=== PATIENT | male | born 1960 | race Caucasian/White ===

== ENCOUNTER 2016-07-08 12:54 | Inpatient (IN) | payer OTHER ==
[2016-07-05 10:43] VITALS: BMI 29.7
[2016-07-08] MEDS ORDERED: LIDOCAINE HCL 1%, 10 MG/ML (20ML VIAL) ONE (14:28)
[2016-07-08] MEDS ORDERED: HEPARIN NA (PORCINE) 5,000 UNITS/ML 1ML VIAL ONE (14:28)
[2016-07-08] MEDS ORDERED: PROPOFOL 20 ML ONE ×2 (15:09→16:34)
[2016-07-08] MEDS ORDERED: MIDAZOLAM HCL 2 MG/2 ML SINGLE DOSE VIAL ONE ×2 (15:09→16:42)
--- NOTE | 2016-07-08 15:33 | HP ---
Admitting History and Physical - Admission History of Present Illness: 55 year old male ESRD on HD with recent thrombosis of right arm fistula. Angiogram 2 weeks ago showed occlusion of innominate vein stent which could not be crossed at that time. He has a left IJ Permacath. History Source: Patient, Medical Record - Past Medical History Cardiovascular: Yes: CAD, HTN Renal/: Yes: Renal Failure, Hemodialysis Heme/Onc: Yes: Anemia Endocrine: Yes: Diabetes Mellitus - Past Surgical History Past Surgical History: Yes: AV Fistula/Graft - Smoking History Smoking history: Never smoked Have you smoked in the past 12 months: No Aproximately how many cigarettes per day: 0 - Alcohol/Substance Use Hx Alcohol Use: No Home Medications - Allergies Allergies/Adverse Reactions: Allergies Allergy/AdvReac Type Severity Reaction Status Date / Time No Known Drug Allergies Allergy Verified 07/08/16 13:52 - Home Medications Home Medications: Ambulatory Orders Aspirin 81 mg PO DAILY #0 tab.chew 01/07/13 Calcium Acetate [Phoslo -] 667 mg PO TIDCM 10/10/14 Esomeprazole Mag Trihydrate [Nexium] 40 mg PO DAILY 10/10/14 Metoprolol Tartrate [Lopressor -] 25 mg PO BID 10/10/14 Losartan Potassium [Cozaar -] 50 mg PO DAILY tablet 10/26/14 Amlodipine Besylate [Norvasc -] 10 mg PO DAILY tablet 06/14/16 Atorvastatin Ca [Lipitor] 10 mg PO HS #30 tablet 06/14/16 Oxycodone HCl [Roxicodone -] 5 mg PO Q4H PRN #20 tablet MDD 3 06/14/16 Insulin (Novolog) [Novolog Flexpen -] 30 units SQ BID 07/05/16 Insulin Glargine,Hum.rec.anlog [Lantus (nf)] 30 units SQ HS 07/05/16 Physical Examination Vital Signs: Vital Signs Temperature 97.4 F L 07/08/16 13:57 Pulse Rate 65 07/08/16 13:57 Respiratory Rate 18 07/08/16 13:57 Blood Pressure 154/83 07/08/16 13:57 O2 Sat by Pulse Oximetry (%) 98 07/08/16 13:57 Constitutional: Yes: No Distress Eyes: Yes: Conjunctiva Clear HENT: Yes: Atraumatic Neck: Yes: Supple Cardiovascular: Yes: Regular Rate and Rhythm Respiratory: Yes: Regular Gastrointestinal: Yes: Soft Extremities: Yes: WNL, Other (Right brachial pulse 2+, pulse in distal fistula.) Labs: CBC, BMP 07/08/16 13:13 Problem List - Problems (1) ESRD (end stage renal disease) on dialysis Assessment/Plan: Central vein occlusion. Will attempt to reopen innominate vein stent in preparation for HeRO graft. Post op HD. Code(s): N18.6 - END STAGE RENAL DISEASE Z99.2 - DEPENDENCE ON RENAL DIALYSIS
[2016-07-08] MEDS ORDERED: INSULIN (NOVOLOG) ASPART 100 UNITS/ML 10ML VIAL SQ STA (16:43)
[2016-07-08] MEDS ORDERED: HEPARIN NA (PORCINE) 5,000 UNITS/ML 1ML VIAL IVPUSH ONE (16:49)
--- NOTE | 2016-07-08 17:11 | OP ---
Operative Note - Note: Operative Date: 07/08/16 Pre-Operative Diagnosis: ESRD, right innominate vein occlusion. Operation: Ultrasound guided cannuklation of right internal jugular vein. Balloon venoplasty of right innominate vein. Placement of triple lumen catheter. Surgeon: Reymundo Gonzalez Anesthesiologist/TOBACCO STEMMER: Oliverio Monge Anesthesia: Fractional Operative Report Dictated: Yes
[2016-07-08] MEDS ORDERED: ONDANSETRON 4 MG/2 ML VIAL IVPUSH PRN (17:14)
[2016-07-08] MEDS ORDERED: INSULIN REGULAR HUMAN 100 UNITS/ML *VIAL IVPUSH ONE (17:15)
--- NOTE | 2016-07-08 20:09 | OP ---
DATE OF OPERATION: 07/08/2016 SURGEON: Reymundo West M.D. PROCEDURE: Ultrasound guided cannulation of right internal jugular vein. Balloon venoplasty of right innominate vein. Placement of triple lumen catheter. 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 ANESTHESIA: Fractional anesthesia. ANESTHESIOLOGIST: Oliverio Monge M.D. OPERATIVE FINDINGS: Right internal jugular vein was patent. A stent in the right innominate vein was chronically occluded and there was retrograde flow into the subclavian vein. OPERATIVE PROCEDURE: Following routine patient identification, with side and site verification, intravenous sedation was established. The right neck, chest, and right groin were prepped with Chloraprep and sterilely draped; surgical timeout was performed. Using real time duplex ultrasound, the right internal jugular vein was identified and was deemed to be patent. 1% Xylocaine was infiltrated in the skin over the vein. The vein was cannulated with a micropuncture needle. A Fiberwire was passed proximally towards the occluded stent. The needle was exchanged for a 5 Ukrainian catheter. An angle-tipped wire was then advanced through the catheter and manipulated into the subclavian vein. A catheter was exchanged over the wire, and the wire was exchanged for an Amplatz wire. A short 6 Ukrainian sheath was then placed over the wire to the jugular vein. Using a catheter and glidewire, the occluded stent was cannulated and the wire and catheter advanced proximally toward the heart, until the wire re-entered the right atrium. The catheter was advanced over the wire, contrast was injected ton confirm entry into the atrium. A glidewire was then advanced distally through the atrium into the inferior vena cava. The catheter advanced down over the wire, the wire exchanged for the stiff wire. An 8-mm angioplasty balloon was then used to dilate the stent and restore patency on repeat venogram. A triple lumen catheter was then advanced over the wire and positioned in the right atrium. The wire was removed. Each lumen was aspirated for blood and flushed with saline and heparin solution. It was then secured to the skin with a silk suture and sterilely bandaged. The patient was taken to recovery room in stable condition. REYMUNDO WEST M.D. [id number]
[2016-07-08] MEDS: oxyCODONE HCL 5 MG TABLET PO PRN (22:15)
[2016-07-08] MEDS: INSULIN (NOVOLOG) ASPART 100 UNITS/ML 10ML VIAL SQ SCH (22:15)
[2016-07-08] MEDS: METOPROLOL TARTRATE 25 MG TABLET (FP) PO SCH (22:15)
[2016-07-08] MEDS: INSULIN DETEMIR 100 UNITS/ML MDV SQ SCH (22:15)
[2016-07-08] MEDS: ATORVASTATIN CA 10 MG TABLET (FP) PO SCH (22:17)
[2016-07-09] MEDS ORDERED: ZOLPIDEM TARTRATE 5 MG TABLET PO PRN (08:24)
--- NOTE | 2016-07-09 08:24 | PN ---
Progress Note (short form) - Note Progress Note: POD 1 C/o pain in neck Afeb Generalized edema. Dialysis today Plan placement of HeRO graft tomorrow. Problem List - Problems (1) ESRD (end stage renal disease) on dialysis Code(s): N18.6 - END STAGE RENAL DISEASE Z99.2 - DEPENDENCE ON RENAL DIALYSIS
--- NOTE | 2016-07-09 08:54 | PN ---
Progress Note (short form) - Note Progress Note: RENAL 55 WITH ESRD HTN DM CENTRAL VEIN THROMBOSIS POD1 AWAITS HERO GRAFT IN AM FACIAL SWELLING FROM CENTRAL OCCLUSION IN PAIN OXYCODONE NOT WORKING WILL ORDER MORPHINE 4 MG Q 8 PRN HD TODAY HIPS 20 4 HR K2 CA2.5 [facility] 4 KG HOLD BP MEDS PRE HD CASE D/W NURSE AND DR WEST BG LOW 75 SHOULD EAT LOWER INSULIN TONIGHT HE MAY BE NPO PRE OP CALL FOR QUESTIONS [phone] DR ROBERTSON
[2016-07-09] MEDS: morphine CARPU-JECT 4 MG/1 ML DISP.SYRIN SQ PRN ×2 (09:10→16:43)
[2016-07-09] MEDS: LOSARTAN POTASSIUM 50 MG TABLET (FP) PO SCH (09:49)
[2016-07-09] MEDS: METOPROLOL TARTRATE 25 MG TABLET (FP) PO SCH ×2 (09:50→21:25)
[2016-07-09] MEDS: PANTOPRAZOLE 40 MG TABLET (FP) PO SCH (09:51)
[2016-07-09] MEDS: amLODIPine BESYLATE 10 MG TABLET (FP) PO SCH (09:51)
[2016-07-09] MEDS: ASPIRIN 81 MG CHEWABLE TABLETS PO SCH (09:51)
[2016-07-09] MEDS: CALCIUM ACETATE 667 MG CAPSULE (FP) PO SCH ×4 (09:53→17:03)
[2016-07-09] MEDS: INSULIN (NOVOLOG) ASPART 100 UNITS/ML 10ML VIAL SQ SCH ×2 (09:54→21:29)
--- NOTE | 2016-07-09 12:11 | CONSULT ---
Consult Consult Specialty:: INTERNAL MEDICINE Referred by:: DR WEST Reason for Consultation:: medical management - History of Present Illness Chief Complaint: dialysis access and stenosed rt innominate vein History of Present Illness: 55 yrs old male known to me from previous admission for malfunction AVG- here electively for dialysis access and surgery for occluded rt innominate vein He underwent cannulation of rt int jugular vein and venoplasty pf innominate vein and left chest wall permacath He will be going for Hero graft procedure tomorrow Pt examined in dialysis today No distress No pain - History Source History Provided By: Patient Limitations to Obtaining History: No Limitations - Past Medical History Cardio/Vascular: Yes: CAD, HTN Renal/: Yes: Renal Failure, Hemodialysis Endocrine: Yes: Diabetes Mellitus - Past Surgical History Past Surgical History: Yes: AV Fistula/Graft - Alcohol/Substance Use Hx Alcohol Use: No - Smoking History Smoking history: Never smoked Have you smoked in the past 12 months: No Aproximately how many cigarettes per day: 0 - Social History Usual Living Arrangement: With Spouse Home Medications - Allergies Allergies/Adverse Reactions: Allergies Allergy/AdvReac Type Severity Reaction Status Date / Time No Known Drug Allergies Allergy Verified 07/08/16 13:52 - Home Medications Home Medications: Ambulatory Orders Aspirin 81 mg PO DAILY #0 tab.chew 01/07/13 Calcium Acetate [Phoslo -] 667 mg PO TIDCM 10/10/14 Esomeprazole Mag Trihydrate [Nexium] 40 mg PO DAILY 10/10/14 Metoprolol Tartrate [Lopressor -] 25 mg PO BID 10/10/14 Losartan Potassium [Cozaar -] 50 mg PO DAILY tablet 10/26/14 Amlodipine Besylate [Norvasc -] 10 mg PO DAILY tablet 06/14/16 Atorvastatin Ca [Lipitor] 10 mg PO HS #30 tablet 06/14/16 Oxycodone HCl [Roxicodone -] 5 mg PO Q4H PRN #20 tablet MDD 3 06/14/16 Insulin (Novolog) [Novolog Flexpen -] 30 units SQ BID 07/05/16 Insulin Glargine,Hum.rec.anlog [Lantus (nf)] 30 units SQ HS 07/05/16 Review of Systems - Review of Systems Constitutional: denies: Chills, Fever Cardiovascular: denies: Chest Pain, Palpitations, Shortness of Breath Respiratory: denies: Cough Physical Exam Vital Signs: Vital Signs Temperature 97.0 F L 07/09/16 10:00 Pulse Rate 65 07/09/16 10:00 Respiratory Rate 20 07/09/16 10:00 Blood Pressure 165/71 07/09/16 10:00 O2 Sat by Pulse Oximetry (%) 98 07/08/16 22:00 Constitutional: Yes: No Distress, Calm, Other (right cheek- canula in place) Cardiovascular: Yes: Regular Rate and Rhythm Respiratory: Yes: CTA Bilaterally, Other (left chest wall permacath) Gastrointestinal: Yes: Normal Bowel Sounds, Soft, Abdomen, Obese. No: Distention, Tenderness Edema: No Neurological: Yes: Alert, Oriented Psychiatric: Yes: Alert, Oriented Labs: CBC, BMP 07/08/16 13:13 Imaging - Results Chest X-ray: Image Reviewed Problem List - Problems (1) Diabetes Assessment/Plan: Novolog per sliding scale monitor BGM On Levemir may need to hold Levemir if NPO Code(s): E11.9 - TYPE 2 DIABETES MELLITUS WITHOUT COMPLICATIONS Qualifiers: Diabetes mellitus type: type 1 Diabetes mellitus complication detail: with chronic kidney disease Chronic kidney disease stage: on chronic dialysis (2) ESRD (end stage renal disease) on dialysis Assessment/Plan: HD per renal No distress not in volume overload Code(s): N18.6 - END STAGE RENAL DISEASE Z99.2 - DEPENDENCE ON RENAL DIALYSIS (3) HTN (hypertension) Assessment/Plan: on medications Code(s): I10 - ESSENTIAL (PRIMARY) HYPERTENSION Qualifiers: Hypertension type: essential hypertension Qualified Code(s): I10 - Essential (primary) hypertension (4) Shunt malfunction Assessment/Plan: will be going for Hero graft placement tomorrow He is getting dialysis through left chest wall permacath for now Code(s): T85.698A - [facility] COMPL OF INTERNAL PROSTH DEV/GRFT, INIT Qualifiers: Encounter type: subsequent encounter Qualified Code(s): T85.698D - Other mechanical complication of other specified internal prosthetic devices, implants and grafts, subsequent encounter (5) Stenosis of right innominate vein Assessment/Plan: s/p cannulation and balloon venoplasty DVT prophylaxis-- Lovenox Code(s): I87.1 - COMPRESSION OF VEIN
[2016-07-09 12:37] LABS: BASOPHIL 0.5 % (0-2.0); EOSINOPHIL 2.5 % (0-4.5); MCH 30.5 pg (25.7-33.7); MCHC 32.6 g/dl (32.0-35.9); MEAN CELL VOLUME 93.5 fl (80-96); MEAN PLT VOLUME 8.4 fl (7.5-11.1); NEUTROPHILS 63.6 % (42.8-82.8); PLATELET COUNT 195 K/MM3 (134-434); RDW 15.6 % (11.9-15.9); WHITE BLOOD COUNT 5.7 K/mm3 (4.0-10.0)
[2016-07-09 12:54] LABS: ALBUMIN 3.5 g/dl (3.4-5.0); BILIRUBIN,TOTAL 0.4 mg/dL (0.2-1.0); CALCIUM 8.1 mg/dL (8.5-10.1); TOT PROT 7.3 g/dl (6.4-8.2)
[2016-07-09 13:05] LABS: CREATININE 10.2 mg/dL (0.7-1.3)
[2016-07-09 13:33] LABS: INR 1.04 (0.82-1.09); PROTHROMBIN TIME (PATIENT) 11.5 SEC (9.98-11.88)
[2016-07-09] MEDS: ENOXAPARIN NA (PORCINE) 40 MG/0.4 ML DISP.SYRIN SQ SCH (16:44)
[2016-07-09] MEDS: ATORVASTATIN CA 10 MG TABLET (FP) PO SCH (21:25)
[2016-07-09] MEDS: INSULIN DETEMIR 100 UNITS/ML MDV SQ SCH (21:27)
[2016-07-09] MEDS ORDERED: INSULIN (NOVOLOG) ASPART 100 UNITS/ML 10ML VIAL SQ ONE (21:30)
[2016-07-09] MEDS ORDERED: INSULIN DETEMIR 100 UNITS/ML MDV SQ ONE (21:30)
[2016-07-09] MEDS: oxyCODONE HCL 5 MG TABLET PO PRN (21:32)
[2016-07-10] MEDS: morphine CARPU-JECT 4 MG/1 ML DISP.SYRIN SQ PRN (00:04)
[2016-07-10 07:51] LABS: BASOPHIL 0.7 % (0-2.0); EOSINOPHIL 2.8 % (0-4.5); MCH 30.5 pg (25.7-33.7); MCHC 32.8 g/dl (32.0-35.9); MEAN PLT VOLUME 8.2 fl (7.5-11.1); NEUTROPHILS 54.9 % (42.8-82.8); PLATELET COUNT 189 K/MM3 (134-434); RDW 15.6 % (11.9-15.9)
[2016-07-10 08:45] LABS: ALBUMIN 3.4 g/dl (3.4-5.0); BILIRUBIN,TOTAL 0.6 mg/dL (0.2-1.0); CALCIUM 7.5 mg/dL (8.5-10.1); TOT PROT 7.3 g/dl (6.4-8.2)
[2016-07-10 09:00] LABS: CREATININE 8.2 mg/dL (0.7-1.3)
[2016-07-10] MEDS: ENOXAPARIN NA (PORCINE) 40 MG/0.4 ML DISP.SYRIN SQ SCH (09:08)
[2016-07-10] MEDS: ASPIRIN 81 MG CHEWABLE TABLETS PO SCH (09:08)
[2016-07-10] MEDS: LOSARTAN POTASSIUM 50 MG TABLET (FP) PO SCH (09:10)
[2016-07-10] MEDS: PANTOPRAZOLE 40 MG TABLET (FP) PO SCH (09:10)
[2016-07-10] MEDS: INSULIN (NOVOLOG) ASPART 100 UNITS/ML 10ML VIAL SQ SCH ×2 (09:10→22:31)
[2016-07-10] MEDS: METOPROLOL TARTRATE 25 MG TABLET (FP) PO SCH ×2 (09:10→22:30)
[2016-07-10] MEDS: amLODIPine BESYLATE 10 MG TABLET (FP) PO SCH (09:10)
[2016-07-10] MEDS: CALCIUM ACETATE 667 MG CAPSULE (FP) PO SCH ×2 (09:10→11:48)
[2016-07-10] MEDS: oxyCODONE HCL 5 MG TABLET PO PRN (09:14)
[2016-07-10] MEDS ORDERED: morphine CARPU-JECT 2 MG/1 ML DISP.SYRIN IVPUSH PRN (11:20)
--- NOTE | 2016-07-10 11:24 | PN ---
Progress Note, Physician Chief Complaint: c/o pain in right side of neck No SOB , chest pain wants Morphine - Current Medication List Current Medications: Active Medications Amlodipine Besylate (Norvasc -) 10 mg PO DAILY [facility] Last Admin: 07/10/16 09:10 Dose: 10 mg Aspirin (Asa -) 81 mg PO DAILY [facility] Last Admin: 07/10/16 09:08 Dose: Not Given Atorvastatin Calcium (Lipitor -) 10 mg PO HS [facility] Last Admin: 07/09/16 21:25 Dose: 10 mg Calcium Acetate (Phoslo -) 667 mg PO TIDCM [facility] Last Admin: 07/10/16 09:10 Dose: 667 mg Enoxaparin Sodium (Lovenox -) 40 mg SQ DAILY [facility] Last Admin: 07/10/16 09:08 Dose: Not Given Insulin Aspart (Novolog Vial) 30 units SQ BID [facility] Last Admin: 07/10/16 09:10 Dose: 2 units Insulin Detemir (Levemir Vial) 30 units SQ HS [facility] Last Admin: 07/09/16 21:27 Dose: Not Given Losartan Potassium (Cozaar -) 50 mg PO DAILY [facility] Last Admin: 07/10/16 09:10 Dose: 50 mg Metoprolol Tartrate (Lopressor -) 25 mg PO BID [facility] Last Admin: 07/10/16 09:10 Dose: 25 mg Morphine Sulfate (Morphine Injection -) 1 mg IVPUSH Q4H PRN PRN Reason: PAIN Oxycodone HCl (Roxicodone -) 5 mg PO Q4H PRN PRN Reason: PAIN LEVEL 1-5 Last Admin: 07/10/16 09:14 Dose: 5 mg Pantoprazole Sodium (Protonix -) 40 mg PO DAILY [facility] Last Admin: 07/10/16 09:10 Dose: 40 mg Zolpidem Tartrate (Ambien -) 10 mg PO HS PRN PRN Reason: INSOMNIA Last Admin: 07/09/16 21:33 Dose: 10 mg - Objective Vital Signs: Vital Signs Temperature 97.5 F L 07/10/16 09:19 Pulse Rate 67 07/10/16 09:19 Respiratory Rate 18 07/10/16 09:19 Blood Pressure 155/80 07/10/16 09:19 O2 Sat by Pulse Oximetry (%) 98 07/08/16 22:00 Constitutional: Yes: Mild Distress HENT: Yes: Other (canula rt neck) Cardiovascular: Yes: Regular Rate and Rhythm Respiratory: Yes: Diminished Gastrointestinal: Yes: Normal Bowel Sounds, Soft, Abdomen, Obese. No: Distention, Tenderness Edema: No Labs: CBC, BMP 07/10/16 06:45 07/10/16 06:45 INR, PTT INR 1.04 (0.82-1.09) 07/09/16 12:00 Problem List - Problems (1) Diabetes Assessment/Plan: Novolog per sliding scale monitor BGM On Levemir NPO after breakfast Code(s): E11.9 - TYPE 2 DIABETES MELLITUS WITHOUT COMPLICATIONS Qualifiers: Diabetes mellitus type: type 1 Diabetes mellitus complication detail: with chronic kidney disease Chronic kidney disease stage: on chronic dialysis (2) ESRD (end stage renal disease) on dialysis Assessment/Plan: HD per renal No distress not in volume overload Code(s): N18.6 - END STAGE RENAL DISEASE Z99.2 - DEPENDENCE ON RENAL DIALYSIS (3) HTN (hypertension) Assessment/Plan: on medications Code(s): I10 - ESSENTIAL (PRIMARY) HYPERTENSION Qualifiers: Hypertension type: essential hypertension Qualified Code(s): I10 - Essential (primary) hypertension (4) Shunt malfunction Assessment/Plan: will be going for Hero graft placement today He is getting dialysis through left chest wall permacath for now Code(s): T85.698A - [facility] COMPL OF INTERNAL PROSTH DEV/GRFT, INIT Qualifiers: Encounter type: subsequent encounter Qualified Code(s): T85.698D - Other mechanical complication of other specified internal prosthetic devices, implants and grafts, subsequent encounter (5) Stenosis of right innominate vein Assessment/Plan: s/p cannulation and balloon venoplasty pain control DVT prophylaxis-- Lovenox Code(s): I87.1 - COMPRESSION OF VEIN
[2016-07-10] MEDS ORDERED: Insulin (LOG) Aspart 100 UNITS/ML VIAL SQ ONE (11:57)
[2016-07-10] MEDS ORDERED: LIDOCAINE HCL 1%, 10 MG/ML (20ML VIAL) ONE (13:12)
[2016-07-10] MEDS ORDERED: HEPARIN NA (PORCINE) 5,000 UNITS/ML 1ML VIAL ONE (13:12)
[2016-07-10] MEDS ORDERED: MIDAZOLAM HCL 2 MG/2 ML SINGLE DOSE VIAL ONE (14:17)
[2016-07-10] MEDS ORDERED: HEPARIN NA (PORCINE) 5,000 UNITS/ML 1ML VIAL SQ ONE (14:21)
[2016-07-10] MEDS ORDERED: PROPOFOL 20 ML ONE (14:22)
[2016-07-10] MEDS ORDERED: ROCURONIUM BROMIDE 50 MG/5 ML VIAL ONE (14:22)
[2016-07-10] MEDS ORDERED: ceFAZolin SODIUM 1 GM VIAL IVPB ONE (14:31)
[2016-07-10] MEDS ORDERED: ceFAZolin SODIUM 1 GM VIAL ONE (14:39)
[2016-07-10] MEDS ORDERED: MINERAL OIL 25 ML OIL ONE (15:13)
[2016-07-10] MEDS ORDERED: MINERAL OIL 25 ML OIL TP ONE (15:22)
[2016-07-10] MEDS ORDERED: BACITRACIN 50,000 UNITS VIAL TP ONE (15:53)
[2016-07-10] MEDS ORDERED: GLYCOPYRROLATE 0.2 MG/1 ML VIAL ONE (16:47)
[2016-07-10] MEDS ORDERED: NEOSTIGMINE METHYLSULFATE 0.5 MG/ML - 10 ML MDV ONE (16:48)
[2016-07-10] MEDS ORDERED: PROMETHAZINE HCL 25 MG/1 ML VIAL IVPUSH PRN ×2 (17:13→17:41)
[2016-07-10] MEDS ORDERED: ONDANSETRON 4 MG/2 ML VIAL IVPUSH PRN ×2 (17:13→17:41)
[2016-07-10] MEDS ORDERED: oxyCODONE HCL 5 MG TABLET PO PRN ×2 (17:13→17:41)
--- NOTE | 2016-07-10 17:14 | OP ---
Operative Note - Note: Operative Date: 07/10/16 Pre-Operative Diagnosis: ESRD, Central vein occlusion. Operation: Placement of HeRO graft. Venoplasty of innominate vein Findings: Occluded innominate vein stent Implants: HeRO graft and catheter Post-Operative Diagnosis: Same as Pre-op Surgeon: Reymundo Gonzalez Field Service Technician: Carol Conklin Anesthesiologist/DRAFTER CASTINGS: Callum Celestin Anesthesia: General Estimated Blood Loss (mls): 50
[2016-07-10] MEDS ORDERED: CLOPIDOGREL BISULFATE 75 MG TABLET (FP) PO SCH (17:15)
[2016-07-10] MEDS ORDERED: HYDROmorphone HCL CARPU-JECT 1 MG/1 ML DISP.SYRIN IVPB PRN (17:15)
--- NOTE | 2016-07-10 17:47 | SURG ---
Surgery Hasher Machine Operator Note Hasher Machine Operator: Carol Conklin PA-C Date of Service: 07/10/16 Diagnosis: ESRD, Central vein occlusion. Procedure: Placement of HeRO graft. Venoplasty of innominate vein I was present for the entirety of the operative procedure. For further detail, please refer to operative report. Visit type - Case Type Case Type: Scheduled Admission
[2016-07-10] MEDS: HYDROmorphone HCL CARPU-JECT 1 MG/1 ML DISP.SYRIN IVPB PRN (21:30)
[2016-07-10] MEDS: INSULIN DETEMIR 100 UNITS/ML MDV SQ SCH (22:29)
[2016-07-10] MEDS: ATORVASTATIN CA 10 MG TABLET (FP) PO SCH (22:30)
[2016-07-10] MEDS: ZOLPIDEM TARTRATE 5 MG TABLET PO PRN (22:31)
[2016-07-11] MEDS: HYDROmorphone HCL CARPU-JECT 1 MG/1 ML DISP.SYRIN IVPB PRN ×5 (01:48→21:14)
--- NOTE | 2016-07-11 02:04 | OP ---
DATE OF OPERATION: 07/10/2016 SURGEON: Reymundo Gonzalez MD LOGISTICS MANAGEMENT SPECIALIST: STEPHANE Conklin PROCEDURE: Placement of Hero graft and catheter right arm and subclavian vein, venoplasty of innominate vein, ultrasound-guided cannulation of right subclavian vein. PREOPERATIVE DIAGNOSIS: End-stage renal disease with occlusion of central veins. POSTOPERATIVE DIAGNOSIS: End-stage renal disease with occlusion of central veins. ANESTHESIA: General. ANESTHESIOLOGIST: Callum Celestin MD OPERATIVE FINDINGS: There was occlusion of a stent in the right innominate vein, which was chronic. Subclavian vein was patent. The brachial artery above the elbow was patent. OPERATIVE PROCEDURE: Following routine patient identification with side and site verification, general anesthesia was induced. The right neck, chest, and arm were prepped with ChloraPrep. Using real time duplex imaging, the right subclavian vein was identified. It was found to be patent. Under duplex guidance, a micropuncture needle was advanced into the lateral aspect of the vein and then a fine wire was passed proximally under fluoroscopic guidance. The needle was exchanged for a 5-Slovenian catheter. The wire was exchanged for a glidewire, which was advanced into the proximal subclavian vein. An 8-Slovenian sheath was then exchanged over the wire into the vein. Using a Berenstein catheter and the glidewire, the distal end of the stent was engaged and the wire passed proximally into the right atrium. The catheter was then advanced over the wire into the right atrium. The wire was then exchanged for an Amplatz wire, which was advanced through the atrium, into the inferior vena cava. The tract around the wire was then successfully dilated with 8-mm and 10-mm balloons. The Hero catheter was prepped and passed over the wire with the aid of a 6-mm balloon at the tip. It was advanced through the stent and into the right atrium. The balloon and wire were removed. Blood was easily aspirated through the catheter, which was filled with heparin solution and occluded with a plastic clamp. A counter incision was then made in the deltopectoral groove over the shoulder. Cautery was used for hemostasis. A Drea clamp was then passed to the chest incision and the catheter was passed through this tunnel with care not to twist it. Again, it was aspirated for blood and flushed with saline solution. An incision was then made in the medial aspect of the distal upper arm at the site of previous arteriovenous anastomosis. Subcutaneous tissues were divided with cautery. The old AV fistula was identified and was carefully mobilized from the surrounding tissues. It was clamped proximally and distally and transected. The distal end was ligated with 2-0 silk suture ligature and tie. The proximal end was dissected down to the brachial artery, which was encircled proximally and distally with [place]. A curved metal tunneler was then passed from this incision to the proximal shoulder incision and a 6-mm Hero graft was passed through the tunnel with care not to twist it. The Hero catheter was trimmed and attached to the Hero adapter with a snug, tight fit. The graft was then pulled taught in its bed and the adapter was secured in its incision with interrupted sutures of 3-0 Vicryl on the surrounding tissues. The brachial artery was then occluded proximally and distally with bulldog clamps and the old vein graft anastomosis was excised. The resulting arteriotomy was used for the anastomosis. Inflow and outflow were checked and the artery was filled with heparin solution. The graft was occluded with a vascular clamp and trimmed for length. It was anastomosed to the side of the artery with running suture of 6-0 Prolene. Prior to completion of the suture line, the artery was allowed to back bleed and flush and the graft was flushed with saline. The suture line was completed and all vessels were released. There was good flow through the anastomosis with a palpable pulse in the graft. Bleeding from the suture line was controlled with Surgicel. When hemostasis was achieved, the wound was irrigated and closed with interrupted sutures of 3-0 Vicryl and skin eliazar on all incisions. Sterile dressings were applied. The patient was taken to the recovery room in stable condition. Shira [id number] cc: Ginny Lloyd MD
--- NOTE | 2016-07-11 08:30 | PN ---
Progress Note (short form) - Note Progress Note: Post op day#1.S/P Right subclavian hero graft placement under GA uneventful.Patient stable.No any anesthesia related problem.Patient DC from the anesthesia care.
[2016-07-11] MEDS: CALCIUM ACETATE 667 MG CAPSULE (FP) PO SCH ×3 (08:55→17:38)
[2016-07-11] MEDS: METOPROLOL TARTRATE 25 MG TABLET (FP) PO SCH ×2 (09:09→21:17)
[2016-07-11] MEDS: amLODIPine BESYLATE 10 MG TABLET (FP) PO SCH (09:09)
[2016-07-11] MEDS: ASPIRIN 81 MG CHEWABLE TABLETS PO SCH (09:09)
[2016-07-11] MEDS: LOSARTAN POTASSIUM 50 MG TABLET (FP) PO SCH (09:09)
[2016-07-11] MEDS: PANTOPRAZOLE 40 MG TABLET (FP) PO SCH (09:10)
[2016-07-11] MEDS: ENOXAPARIN NA (PORCINE) 40 MG/0.4 ML DISP.SYRIN SQ SCH (09:10)
[2016-07-11] MEDS: INSULIN (NOVOLOG) ASPART 100 UNITS/ML 10ML VIAL SQ SCH ×3 (09:10→17:37)
[2016-07-11] MEDS: CLOPIDOGREL BISULFATE 75 MG TABLET (FP) PO SCH (09:10)
--- NOTE | 2016-07-11 09:25 | PN ---
Progress Note (short form) - Note Progress Note: RENAL 55 WITH ESRD HTN DM CENTRAL VEIN THROMBOSIS POD1 POST HERO GRAFT PLACEMENT POS BRUIT DRESSING CHANGED OVERNIGHT WAS LAST DIALYZED TUES 4 KG REMOVED HD TODAY HIPS 20 3.5 HR K2 CA2.5 [facility] 3 KG EPO 20K LOWER HUMALOG TO 10 BID IN HOSPITAL CALL FOR QUESTIONS [phone] DR ROBERTSON
--- NOTE | 2016-07-11 10:14 | PN ---
Progress Note, Physician Chief Complaint: comfortable s/p Hero graft right arm - Current Medication List Current Medications: Active Medications Amlodipine Besylate (Norvasc -) 10 mg PO DAILY [facility] Last Admin: 07/11/16 09:09 Dose: 10 mg Aspirin (Asa -) 81 mg PO DAILY [facility] Last Admin: 07/11/16 09:09 Dose: 81 mg Atorvastatin Calcium (Lipitor -) 10 mg PO HS [facility] Last Admin: 07/10/16 22:30 Dose: 10 mg Calcium Acetate (Phoslo -) 667 mg PO TIDCM [facility] Last Admin: 07/11/16 08:55 Dose: 667 mg Clopidogrel Bisulfate (Plavix -) 75 mg PO DAILY [facility] Last Admin: 07/11/16 09:10 Dose: 75 mg Enoxaparin Sodium (Lovenox -) 40 mg SQ DAILY [facility] Last Admin: 07/11/16 09:10 Dose: 40 mg Epoetin Jared (Procrit -) 10,000 unit SQ ONCE ONE Stop: 07/11/16 12:01 Hydromorphone HCl (Dilaudid Injection -) 1 mg IVPB Q3H PRN PRN Reason: PAIN LEVEL 1-5 Last Admin: 07/11/16 06:26 Dose: 1 mg Insulin Aspart (Novolog Vial) 10 units SQ BIDAC [facility] Last Admin: 07/11/16 09:31 Dose: Not Given Insulin Detemir (Levemir Vial) 30 units SQ HS [facility] Last Admin: 07/10/16 22:29 Dose: 30 unit Losartan Potassium (Cozaar -) 50 mg PO DAILY [facility] Last Admin: 07/11/16 09:09 Dose: 50 mg Metoprolol Tartrate (Lopressor -) 25 mg PO BID [facility] Last Admin: 07/11/16 09:09 Dose: 25 mg Oxycodone HCl (Roxicodone -) 5 mg PO Q4H PRN PRN Reason: PAIN LEVEL 1-5 Last Admin: 07/11/16 09:58 Dose: 5 mg Pantoprazole Sodium (Protonix -) 40 mg PO DAILY [facility] Last Admin: 07/11/16 09:10 Dose: 40 mg Zolpidem Tartrate (Ambien -) 10 mg PO HS PRN PRN Reason: INSOMNIA Last Admin: 07/10/16 22:31 Dose: 10 mg - Objective Vital Signs: Vital Signs Temperature 97.0 F L 01/12/17 05:16 Pulse Rate 65 07/11/16 05:16 Respiratory Rate 16 07/11/16 05:16 Blood Pressure 102/79 07/11/16 05:16 O2 Sat by Pulse Oximetry (%) 96 07/10/16 21:00 Constitutional: Yes: No Distress Cardiovascular: Yes: Regular Rate and Rhythm Respiratory: Yes: Diminished Gastrointestinal: Yes: Normal Bowel Sounds, Soft. No: Distention, Tenderness Musculoskeletal: Yes: Other (right arm dressing in place) Edema: No Neurological: Yes: Alert Labs: CBC, BMP 07/10/16 06:45 07/10/16 06:45 INR, PTT INR 1.04 (0.82-1.09) 07/09/16 12:00 Problem List - Problems (1) Diabetes Assessment/Plan: Novolog per sliding scale monitor BGM On Levemir Code(s): E11.9 - TYPE 2 DIABETES MELLITUS WITHOUT COMPLICATIONS Qualifiers: Diabetes mellitus type: type 1 Diabetes mellitus complication detail: with chronic kidney disease Chronic kidney disease stage: on chronic dialysis (2) ESRD (end stage renal disease) on dialysis Assessment/Plan: HD per renal No distress not in volume overload Code(s): N18.6 - END STAGE RENAL DISEASE Z99.2 - DEPENDENCE ON RENAL DIALYSIS (3) HTN (hypertension) Assessment/Plan: on medications Code(s): I10 - ESSENTIAL (PRIMARY) HYPERTENSION Qualifiers: Hypertension type: essential hypertension Qualified Code(s): I10 - Essential (primary) hypertension (4) Shunt malfunction Assessment/Plan: s/p Hero graft placement increase Oxycodone 10mg will dc IV Dilaudid tomorrow Code(s): T85.698A - [facility] COMPL OF INTERNAL PROSTH DEV/GRFT, INIT Qualifiers: Encounter type: subsequent encounter Qualified Code(s): T85.698D - Other mechanical complication of other specified internal prosthetic devices, implants and grafts, subsequent encounter (5) Stenosis of right innominate vein Assessment/Plan: s/p cannulation and balloon venoplasty pain control DVT prophylaxis-- Lovenox Code(s): I87.1 - COMPRESSION OF VEIN
--- NOTE | 2016-07-11 11:14 | DS ---
Addendum entered and electronically signed by Franki Butts PA 07/13/16 09:36: Stayed for pain management via IV control. Patient can be dc'd today after HD. Date of discharge 07/13/16 Addendum entered and electronically signed by Franki Butts PA 07/12/16 09:22: Stayed because underwent HD late last night. Date of discharge 07/12/16 Original Note: Physical Exam: SUBJECTIVE: Patient seen and examined. Patient is having some pain in his right arm, no other complaints. OBJECTIVE: Vital Signs Temperature 97.0 F L 07/11/16 05:16 Pulse Rate 65 07/11/16 05:16 Respiratory Rate 16 07/11/16 05:16 Blood Pressure 102/79 07/11/16 05:16 O2 Sat by Pulse Oximetry (%) 96 07/10/16 21:00 PHYSICAL EXAM GENERAL: The patient is awake, alert, in no acute distress. HEAD: Normal with no signs of trauma. EYES: PERRL, sclera anicteric, conjunctiva clear. ENT: Ears normal, nares patent, moist mucous membranes. NECK: Trachea midline, full range of motion, supple. Dressing clean and dry in place s/p catheter removal. LUNGS: Breath sounds equal, clear to auscultation bilaterally, no accessory muscle use. HEART: Regular rate and rhythm. ABDOMEN: Soft, nontender, normoactive bowel sounds. EXTREMITIES: warm, well-perfused. RUE with dressings clean, dry intact, changed overnight by nursing. Bruit auscultated. NEUROLOGICAL: Normal speech, gait not observed. PSYCH: Normal mood, normal affect. SKIN: Warm, dry, normal turgor, no rashes or lesions noted. LABS CBC,CMP WBC 5.0 K/mm3 (4.0-10.0) 07/10/16 06:45 RBC 3.40 M/mm3 (4.00-5.60) L 07/10/16 06:45 Hgb 10.4 GM/dL (11.7-16.9) L 07/10/16 06:45 Hct 31.7 % (35.4-49) L 07/10/16 06:45 MCV 93.0 fl (80-96) 07/10/16 06:45 MCHC 32.8 g/dl (32.0-35.9) 07/10/16 06:45 RDW 15.6 % (11.9-15.9) 07/10/16 06:45 Plt Count 189 K/MM3 (134-434) 07/10/16 06:45 MPV 8.2 fl (7.5-11.1) 07/10/16 06:45 Neutrophils % 54.9 % (42.8-82.8) 07/10/16 06:45 Lymphocytes % 28.3 % (8-40) 07/10/16 06:45 Monocytes % 13.3 % (3.8-10.2) H 07/10/16 06:45 Eosinophils % 2.8 % (0-4.5) 07/10/16 06:45 Basophils % 0.7 % (0-2.0) 07/10/16 06:45 Sodium 136 mmol/L (136-145) 07/10/16 06:45 Potassium 4.9 mmol/L (3.5-5.1) 07/10/16 06:45 Chloride 100 mmol/L (98-107) 07/10/16 06:45 Carbon Dioxide 24 mmol/L (21-32) 07/10/16 06:45 Anion Gap 12 (8-16) 07/10/16 06:45 BUN 53 mg/dL (7-18) H D 07/10/16 06:45 Creatinine 8.2 mg/dL (0.7-1.3) H* 07/10/16 06:45 Creat Clearance w eGFR 6.82 (>60) 07/10/16 06:45 POC Glucometer 210 UNITS (()) 07/11/16 06:07 Random Glucose 260 mg/dL (74-106) H D 07/10/16 06:45 Calcium 7.5 mg/dL (8.5-10.1) L 07/10/16 06:45 Total Bilirubin 0.6 mg/dL (0.2-1.0) D 07/10/16 06:45 AST 16 U/L (15-37) 07/10/16 06:45 ALT 33 U/L (12-78) 07/10/16 06:45 Alkaline Phosphatase 170 U/L (45-117) H 07/10/16 06:45 Total Protein 7.3 g/dl (6.4-8.2) 07/10/16 06:45 Albumin 3.4 g/dl (3.4-5.0) 07/10/16 06:45 HOSPITAL COURSE: Date of Admission:07/08/16 Date of Discharge: 07/11/16 The patient is a 55 year old male with ESRD on HD with recent thrombosis of right arm fistula. Angiogram 2 weeks ago showed occlusion of the innominate vein stent, which could not be crossed at that time. He has a left IJ Permacath in place. The patient was admitted to the Med-Surg Unit following ultrasound guided cannulation of the right internal jugular vein, balloon venoplasty of right innominate vein, and placement of triple lumen catheter on 07/08/16. The patient had HD on 07/09 and was then taken back to the OR on 07/10/16 for placement of HeRO graft and venoplasty of innominate vein. The patient was placed on SC Lovenox for DVT prophylaxis. The patient is now POD#3 from his first procedure and POD#1 from the second procedure. He is tolerating his diet and oral pain medication is controlling his pain. He is going for HD today and will be discharged home per Dr. Gonzalez to followup in two weeks. Minutes to complete discharge: 30 Visit type - Case Type Case Type: Scheduled Admission
[2016-07-11] MEDS ORDERED: EPOETIN ALFA 10,000 UNIT/1 ML VIAL SQ ONE (12:00)
[2016-07-11] MEDS: oxyCODONE HCL 5 MG TABLET PO PRN (15:06)
[2016-07-11] MEDS: ZOLPIDEM TARTRATE 5 MG TABLET PO PRN (21:15)
[2016-07-11] MEDS: INSULIN DETEMIR 100 UNITS/ML MDV SQ SCH (21:17)
[2016-07-11] MEDS: ATORVASTATIN CA 10 MG TABLET (FP) PO SCH (21:18)
[2016-07-12] MEDS: oxyCODONE HCL 5 MG TABLET PO PRN (01:41)
[2016-07-12 06:47] LABS: MCH 30.1 pg (25.7-33.7); MCHC 32.5 g/dl (32.0-35.9); MEAN CELL VOLUME 92.8 fl (80-96); MEAN PLT VOLUME 8.6 fl (7.5-11.1); PLATELET COUNT 151 K/MM3 (134-434); RDW 15.7 % (11.9-15.9); WHITE BLOOD COUNT 5.4 K/mm3 (4.0-10.0)
[2016-07-12] MEDS: INSULIN (NOVOLOG) ASPART 100 UNITS/ML 10ML VIAL SQ SCH ×2 (06:58→17:36)
--- NOTE | 2016-07-12 08:55 | PN ---
Progress Note (short form) - Note Progress Note: RENAL 55 WITH ESRD HTN DM CENTRAL VEIN THROMBOSIS POD2 POST HERO GRAFT PLACEMENT POS BRUIT WAS LAST DIALYZED Thurs 3KG REMOVED COMPLAINS OF A LOT OF PAIN ORAL OXYCODONE NOT WORKING WILL TRY ORAL DILAUDID 2 MG PO Q 6 PRN IF THAT WORKS CAN PERHAPS GO HOME IF OK WITH SURGERY CALL FOR QUESTIONS [phone] DR ROBERTSON
[2016-07-12] MEDS: CLOPIDOGREL BISULFATE 75 MG TABLET (FP) PO SCH (09:06)
[2016-07-12] MEDS: CALCIUM ACETATE 667 MG CAPSULE (FP) PO SCH ×3 (09:06→17:36)
[2016-07-12] MEDS: LOSARTAN POTASSIUM 50 MG TABLET (FP) PO SCH (09:07)
[2016-07-12] MEDS: METOPROLOL TARTRATE 25 MG TABLET (FP) PO SCH ×2 (09:07→22:23)
[2016-07-12] MEDS: PANTOPRAZOLE 40 MG TABLET (FP) PO SCH (09:07)
[2016-07-12] MEDS: HYDROmorphone HCL 2 MG TABLET PO PRN ×2 (09:07→15:43)
[2016-07-12] MEDS: ENOXAPARIN NA (PORCINE) 40 MG/0.4 ML DISP.SYRIN SQ SCH (09:08)
[2016-07-12] MEDS: amLODIPine BESYLATE 10 MG TABLET (FP) PO SCH (09:08)
[2016-07-12] MEDS: ASPIRIN 81 MG CHEWABLE TABLETS PO SCH (09:08)
--- NOTE | 2016-07-12 10:42 | PN ---
Progress Note (short form) - Note Progress Note: SUBJECTIVE: Patient seen and examined. Chart reviewed. Chief complaint: Pain in the right arm. OBJECTIVE: Vital Signs - 8 hr 07/12/16 07/12/16 05:54 08:54 Temperature 98.1 F 98.2 F Pulse Rate 81 77 Respiratory 20 20 Rate Blood Pressure 144/61 125/63 Intake & Output 07/11/16 07/12/16 07/12/16 23:59 07:59 15:59 Intake Total 200 Output Total 0 Balance 200 Weight 97.154 kg Intake: Oral 200 Output: Urine 0 Void 0 Other: Voiding Method Toilet Weight Measurement Method Built in [facility] Active Medications Amlodipine Besylate (Norvasc -) 10 mg PO DAILY [facility] Last Admin: 07/12/16 09:08 Dose: 10 mg Aspirin (Asa -) 81 mg PO DAILY [facility] Last Admin: 07/12/16 09:08 Dose: 81 mg Atorvastatin Calcium (Lipitor -) [address] [facility] Last Admin: 07/11/16 21:18 Dose: 10 mg Calcium Acetate (Phoslo -) 667 mg PO TIDCM [facility] Last Admin: 07/12/16 09:06 Dose: 667 mg Clopidogrel Bisulfate (Plavix -) 75 mg PO DAILY [facility] Last Admin: 07/12/16 09:06 Dose: 75 mg Enoxaparin Sodium (Lovenox -) 40 mg SQ DAILY [facility] Last Admin: 07/12/16 09:08 Dose: 40 mg Hydromorphone HCl (Dilaudid Injection -) 1 mg IVPB Q3H PRN PRN Reason: PAIN LEVEL 1-5 Last Admin: 07/11/16 21:14 Dose: 1 mg Hydromorphone HCl (Dilaudid -) 2 mg PO Q6H PRN PRN Reason: PAIN Last Admin: 07/12/16 09:07 Dose: 2 mg Insulin Aspart (Novolog Vial) 10 units SQ BIDAC [facility] Last Admin: 07/12/16 06:58 Dose: 10 units Insulin Detemir (Levemir Vial) 30 units SQ HS [facility] Last Admin: 07/11/16 21:17 Dose: 30 unit Losartan Potassium (Cozaar -) 50 mg PO DAILY [facility] Last Admin: 07/12/16 09:07 Dose: 50 mg Metoprolol Tartrate (Lopressor -) 25 mg PO BID [facility] Last Admin: 07/12/16 09:07 Dose: 25 mg Pantoprazole Sodium (Protonix -) 40 mg PO DAILY [facility] Last Admin: 07/12/16 09:07 Dose: 40 mg Zolpidem Tartrate (Ambien -) 10 mg PO HS PRN PRN Reason: INSOMNIA Last Admin: 07/11/16 21:15 Dose: 10 mg CBC, BMP 07/12/16 05:45 07/10/16 06:45 Laboratory Results - last 24 hr 07/11/16 07/12/16 07/12/16 20:50 05:45 06:42 WBC 5.4 RBC 3.07 L Hgb 9.2 L D Hct 28.5 L MCV 92.8 MCHC 32.5 RDW 15.7 Plt Count 151 D MPV 8.6 POC Glucometer 260 311 PHYSICAL EXAMINATION: Constitutional: Yes: No Distress Cardiovascular: Yes: Regular Rate and Rhythm Respiratory: Yes: Diminished Gastrointestinal: Yes: Normal Bowel Sounds, Soft. No: Distention, Tenderness Musculoskeletal: Yes: Other (right arm dressing in place)- Swelling present. Edema: Yes at the right upper extremity. Neurological: Yes: Alert ASSESSMENT & PLAN: - Status post right upper extremity hero-graft. - Overall stable. - Pain control. - Surgical team to follow. - Continue present care. - Patient just got Dilaudid. - Discussed with nursing staff. Problem List - Problems (1) Diabetes Code(s): E11.9 - TYPE 2 DIABETES MELLITUS WITHOUT COMPLICATIONS Qualifiers: Diabetes mellitus type: type 1 Diabetes mellitus complication detail: with chronic kidney disease Chronic kidney disease stage: on chronic dialysis (2) ESRD (end stage renal disease) on dialysis Code(s): N18.6 - END STAGE RENAL DISEASE Z99.2 - DEPENDENCE ON RENAL DIALYSIS (3) HTN (hypertension) Code(s): I10 - ESSENTIAL (PRIMARY) HYPERTENSION Qualifiers: Hypertension type: essential hypertension Qualified Code(s): I10 - Essential (primary) hypertension (4) Shunt malfunction Code(s): T85.698A - [facility] COMPL OF INTERNAL PROSTH DEV/GRFT, INIT Qualifiers: Encounter type: subsequent encounter Qualified Code(s): T85.698D - Other mechanical complication of other specified internal prosthetic devices, implants and grafts, subsequent encounter (5) Stenosis of right innominate vein Code(s): I87.1 - COMPRESSION OF VEIN Documentation prepared by Nereida Blas, acting as a biomedical field service engineer for David Villa MD.
[2016-07-12] MEDS: HYDROmorphone HCL CARPU-JECT 1 MG/1 ML DISP.SYRIN IVPB PRN ×2 (20:34→23:58)
[2016-07-12] MEDS: INSULIN DETEMIR 100 UNITS/ML MDV SQ SCH (22:21)
[2016-07-12] MEDS: ATORVASTATIN CA 10 MG TABLET (FP) PO SCH (22:22)
[2016-07-13] MEDS: HYDROmorphone HCL CARPU-JECT 1 MG/1 ML DISP.SYRIN IVPB PRN ×3 (05:18→12:38)
[2016-07-13] MEDS: INSULIN (NOVOLOG) ASPART 100 UNITS/ML 10ML VIAL SQ SCH (06:45)
--- NOTE | 2016-07-13 09:34 | PN ---
Progress Note (short form) - Note Progress Note: POD #3 s/p placement of HeRO graft. Venoplasty of innominate vein Patient was scheduled for dc 2 days ago but has stayed secondary to pain/ swelling rue requiring iv pain management. Pateint seen and examined in HD. Still c/o of rue pain but has decreased. Denies n/v/f/c, CP or SOB. Last Vital Signs Temp Pulse Resp BP Pulse Ox 98.0 F 74 16 132/62 96 07/12/16 22:16 07/12/16 22:16 07/12/16 22:16 07/12/16 22:16 07/12/16 21:00 CBC, BMP 07/12/16 05:45 07/10/16 06:45 PE: General: NAD RUE: Swelling. Radial pulse intact. Hands are cool b/l. No numbness/tingling Problem List - Problems (1) ESRD (end stage renal disease) on dialysis Assessment/Plan: Patient can be discharged home after HD today. PO narcotic pain management escribed to patient's pharmacy. Code(s): N18.6 - END STAGE RENAL DISEASE Z99.2 - DEPENDENCE ON RENAL DIALYSIS (2) Stenosis of right innominate vein Code(s): I87.1 - COMPRESSION OF VEIN
[2016-07-13] MEDS: PANTOPRAZOLE 40 MG TABLET (FP) PO SCH (11:32)
[2016-07-13] MEDS: METOPROLOL TARTRATE 25 MG TABLET (FP) PO SCH (11:33)
[2016-07-13] MEDS: LOSARTAN POTASSIUM 50 MG TABLET (FP) PO SCH (11:33)
[2016-07-13] MEDS: ENOXAPARIN NA (PORCINE) 40 MG/0.4 ML DISP.SYRIN SQ SCH (11:33)
[2016-07-13] MEDS: amLODIPine BESYLATE 10 MG TABLET (FP) PO SCH (11:33)
[2016-07-13] MEDS: ASPIRIN 81 MG CHEWABLE TABLETS PO SCH (11:33)
[2016-07-13] MEDS: CALCIUM ACETATE 667 MG CAPSULE (FP) PO SCH ×2 (11:33→11:36)
[2016-07-13] MEDS: CLOPIDOGREL BISULFATE 75 MG TABLET (FP) PO SCH (11:34)
--- NOTE | 2016-07-13 12:23 | PN ---
Progress Note (short form) - Note Progress Note: pt seen today. still having pain in arm overall better had dialysis today no distress Vital Signs Temp 97.6 F 07/13/16 11:31 Pulse 73 07/13/16 11:31 Resp 18 07/13/16 11:31 BP 127/67 07/13/16 11:31 Pulse Ox 96 07/12/16 21:00 Intake & Output 07/12/16 07/13/16 07/13/16 23:59 11:59 23:59 Intake Total 180 150 Balance 180 150 Intake: IVPB 150 Oral 180 Other: Voiding Method Toilet Active Medications Amlodipine Besylate (Norvasc -) 10 mg PO DAILY [facility] Last Admin: 07/13/16 11:33 Dose: 10 mg Aspirin (Asa -) 81 mg PO DAILY [facility] Last Admin: 07/13/16 11:33 Dose: 81 mg Atorvastatin Calcium (Lipitor -) 10 mg PO HS [facility] Last Admin: 07/12/16 22:22 Dose: 10 mg Calcium Acetate (Phoslo -) 667 mg PO TIDCM [facility] Last Admin: 07/13/16 11:36 Dose: Not Given Clopidogrel Bisulfate (Plavix -) 75 mg PO DAILY [facility] Last Admin: 07/13/16 11:34 Dose: 75 mg Enoxaparin Sodium (Lovenox -) 40 mg SQ DAILY [facility] Last Admin: 07/13/16 11:33 Dose: 40 mg Hydromorphone HCl (Dilaudid Injection -) 1 mg IVPB Q3H PRN PRN Reason: PAIN LEVEL 1-5 Last Admin: 07/13/16 08:44 Dose: 1 mg Hydromorphone HCl (Dilaudid -) 2 mg PO Q6H PRN PRN Reason: PAIN Last Admin: 07/12/16 15:43 Dose: 2 mg Insulin Aspart (Novolog Vial) 10 units SQ BIDAC [facility] Last Admin: 07/13/16 06:45 Dose: 10 units Insulin Detemir (Levemir Vial) 30 units SQ HS [facility] Last Admin: 07/12/16 22:21 Dose: 30 unit Losartan Potassium (Cozaar -) 50 mg PO DAILY [facility] Last Admin: 07/13/16 11:33 Dose: 50 mg Metoprolol Tartrate (Lopressor -) 25 mg PO BID [facility] Last Admin: 07/13/16 11:33 Dose: 25 mg Pantoprazole Sodium (Protonix -) 40 mg PO DAILY [facility] Last Admin: 07/13/16 11:32 Dose: 40 mg Zolpidem Tartrate (Ambien -) 10 mg PO HS PRN PRN Reason: INSOMNIA Last Admin: 07/11/16 21:15 Dose: 10 mg CBC, BMP 07/12/16 05:45 07/10/16 06:45 PHYSICAL EXAMINATION: Constitutional: Yes: No Distress Cardiovascular: Yes: Regular Rate and Rhythm Respiratory: Yes: Diminished Gastrointestinal: Yes: Normal Bowel Sounds, Soft. No: Distention, Tenderness Musculoskeletal: Yes: Other (right arm dressing in place)- decreased swelling Edema: Yes at the right upper extremity. Neurological: Yes: Alert ASSESSMENT & PLAN: - Status post right upper extremity hero-graft. - Overall stable. - Pain control. - Surgical team f/u noted - d/c today planned on po pain meds - pt in agreement. Problem List - Problems (1) Diabetes Code(s): E11.9 - TYPE 2 DIABETES MELLITUS WITHOUT COMPLICATIONS Qualifiers: Diabetes mellitus type: type 1 Diabetes mellitus complication detail: with chronic kidney disease Chronic kidney disease stage: on chronic dialysis (2) ESRD (end stage renal disease) on dialysis Code(s): N18.6 - END STAGE RENAL DISEASE Z99.2 - DEPENDENCE ON RENAL DIALYSIS (3) HTN (hypertension) Code(s): I10 - ESSENTIAL (PRIMARY) HYPERTENSION Qualifiers: Hypertension type: essential hypertension Qualified Code(s): I10 - Essential (primary) hypertension (4) Shunt malfunction Code(s): T85.698A - [facility] COMPL OF INTERNAL PROSTH DEV/GRFT, INIT Qualifiers: Encounter type: subsequent encounter Qualified Code(s): T85.698D - Other mechanical complication of other specified internal prosthetic devices, implants and grafts, subsequent encounter (5) Stenosis of right innominate vein Code(s): I87.1 - COMPRESSION OF VEIN
[2016-07-13 13:35] VITALS: BP 115/55; PULSE 79; TEMP 97.2
== END 2016-07-13 13:46 | disposition home or self-care (01) | DRG 252 ==
LOC: JASUSAT 12:54 → J6S 20:09 → JASUSAT 20:10 → J6S 20:10
PROVIDERS: ADMIT Surgery; ATTEND Surgery
PROC: 03723ZZ Dilation of Innominate Artery, Percutaneous Approach (ICD-10-PCS; 2016-07-08)
PROC: 03170JD Bypass Right Brachial Artery to Upper Arm Vein with Synthetic Substitute, Open Approach (ICD-10-PCS; 2016-07-08)
PROC: 05733ZZ Dilation of Right Innominate Vein, Percutaneous Approach (ICD-10-PCS; 2016-07-08)
PROC: 02H633Z Insertion of Infusion Device into Right Atrium, Percutaneous Approach (ICD-10-PCS; 2016-07-08)
PROC: 051 Upper Veins, Bypass (ICD-10-PCS; principal; 2016-07-08 15:00)
PROC: 0JH60XZ Insertion of Tunneled Vascular Access Device into Chest Subcutaneous Tissue and Fascia, Open Approach (ICD-10-PCS; 2016-07-10)
PROC: B50 Imaging, Veins, Plain Radiography (ICD-10-PCS; 2016-07-10)
PROC: 3E033GC Introduction of Other Therapeutic Substance into Peripheral Vein, Percutaneous Approach (ICD-10-PCS; 2016-07-10)
PROC: B546ZZA Ultrasonography of Right Subclavian Vein, Guidance (ICD-10-PCS; 2016-07-10)
PROC: 5A1D60Z (ICD-10-PCS; 2016-07-13)
DX: T82.868A Thrombosis due to vascular prosthetic devices, implants and grafts, initial encounter (principal); N18.6 End stage renal disease; I12.0 Hypertensive chronic kidney disease with stage 5 chronic kidney disease or end stage renal disease; Y83.9 Surgical procedure, unspecified as the cause of abnormal reaction of the patient, or of later complication, without mention of misadventure at the time of the procedure; Z99.2 Dependence on renal dialysis; E11.9 Type 2 diabetes mellitus without complications
CPT/HCPCS: 36415; 71010-TC; 76000-TC; 80053; 82947; 84132; 85025; 85027; 85610; 86850; 86900; 86901; 94760; J0885; J1644

== ENCOUNTER 2016-08-09 15:00 | Observation (INO) | payer OTHER ==
[2016-08-09 15:07] VITALS: BMI 29.7
--- NOTE | 2016-08-09 15:12 | PDOC ---
History of Present Illness - General History Source: Patient Exam Limitations: No Limitations - History of Present Illness Initial Comments: 08/09/16 15:45 The patient is a 55 year old male, with a significant past medical history of CAD x3 stents, DM, dialysis (friday, , friday), and HTN who presents to the emergency department with dialysis shunt complications. Patient reports having a right arm fistula malfunction and was sent in by for pre- op. Patient went to dialysis yesterday and they could find/acess fistula.He denies fever, chills, headache and dizziness. He denies nausea, vomit, diarrhea and constipation. Allergies: NKDA Social History: Nonsmoker. PCP: <Bernard Anglin - Last Filed: 08/09/16 15:49> - General History Source: Patient Exam Limitations: No Limitations <Tatianna Salazar - Last Filed: 08/10/16 17:27> - General Chief Complaint: Dialysis Shunt Problem Stated Complaint: PCP REFERRED Time Seen by Provider: 08/09/16 15:11 Past History <Bernard Anglin - Last Filed: 08/09/16 15:49> - Past Medical History Anemia: No Asthma: No Cancer: No Cardiac Disorders: Yes (3 stents (2006/2009/2014)) CVA: No COPD: No CHF: No Dementia: No Diabetes: Yes (IDDM) Dialysis: Yes () GI Disorders: No Disorders: No HTN: Yes Hypercholesterolemia: No Liver Disease: No Seizures: No Thyroid Disease: No - Surgical History Abdominal Surgery: No Appendectomy: No Cardiac Surgery: Yes (cardiac stents x 3) Cholecystectomy: No Lung Surgery: No Neurologic Surgery: No Orthopedic Surgery: Yes (OR debridement left foot wound) - Psycho/Social/Smoking Cessation Hx Anxiety: No Suicidal Ideation: No Smoking Status: No Smoking History: Never smoked Have you smoked in the past 12 months: No Number of Cigarettes Smoked Daily: 0 Information on smoking cessation initiated: No Hx Alcohol Use: No Drug/Substance Use Hx: No Substance Use Type: None Hx Substance Use Treatment: No <Tatianna Salazar - Last Filed: 08/10/16 17:27> - Past Medical History Allergies/Adverse Reactions: Allergies Allergy/AdvReac Type Severity Reaction Status Date / Time No Known Drug Allergies Allergy Verified 08/09/16 15:03 Home Medications: Ambulatory Orders Aspirin 81 mg PO DAILY #0 tab.chew 01/07/13 Calcium Acetate [Phoslo -] 667 mg PO TIDCM 10/10/14 Esomeprazole Mag Trihydrate [Nexium] 40 mg PO DAILY 10/10/14 Metoprolol Tartrate [Lopressor -] 25 mg PO BID 10/10/14 Losartan Potassium [Cozaar -] 50 mg PO DAILY tablet 10/26/14 Amlodipine Besylate [Norvasc -] 10 mg PO DAILY tablet 06/14/16 Atorvastatin Ca [Lipitor] 10 mg PO HS #30 tablet 06/14/16 Insulin Glargine,Hum.rec.anlog [Lantus (10mL VIAL) -] 30 units SQ HS 07/05/16 Albuterol 0.083% Nebulizer Faviola [Ventolin 0.083% Nebulizer Soln -] 1 amp NEB Q4H PRN #0 amp 08/10/16 Apixaban [Eliquis -] 2.5 mg PO BID #60 tablet 08/10/16 Apixaban [Eliquis] 2.5 mg PO BID 08/10/16 Epoetin Jared [Procrit -] 5,000 unit IVPUSH POSTDI ml 08/10/16 Novolin 70-30 100 Unit/ml Vial 30 units SQ BID 08/10/16 Oxycodone HCl [Roxicodone -] 5 mg PO Q4H PRN #15 tablet MDD 3 08/10/16 Zolpidem Tartrate [Ambien] 5 mg PO HS PRN #30 tablet MDD 1 08/10/16 Review of Systems - Review of Systems Able to Perform ROS?: Yes Comments:: 08/09/16 15:45 GENERAL/CONSTITUTIONAL: Yes fistula shunt problem. No: fever, chills, weakness , loss of appetite. HEAD, EYES, EARS, NOSE AND THROAT: No: change in vision, ear pain, discharge, sore throat, throat swelling. CARDIOVASCULAR: No: chest pain, lightheadedness, palpitations, syncope RESPIRATORY: No: cough, shortness of breath, wheezing, hemoptysis, stridor. GASTROINTESTINAL: No: nausea, vomiting, diarrhea, abdominal cramping, rectal bleeding, constipation. GENITOURINARY: No: dysuria, hematuria, frequency, urgency, flank pain. MUSCULOSKELETAL: No: back pain, neck pain, joint pain, muscle swelling or pain SKIN : No: lesions, pallor, rash or easy bruising. NEUROLOGIC: No: headache, vertigo, paresthesias, weakness ENDOCRINE: No: unexplained weight gain or loss HEMATOLOGIC/LYMPHATIC: No: anemia, easy bleeding, swelling nodes. <Bernard Anglin - Last Filed: 08/09/16 15:49> *Physical Exam - Vital Signs Last Vital Signs Temp Pulse Resp BP Pulse Ox 98.4 F 76 18 150/75 100 08/09/16 15:04 08/09/16 15:04 08/09/16 15:04 08/09/16 15:04 08/09/16 15:04 - Physical Exam Comments: 08/09/16 15:47 GENERAL: The patient is in no acute distress. HEAD: Normal with no signs of trauma. EYES: PERRLA, EOMI, sclera anicteric, conjunctiva clear. ENT: Ears normal, nares patent, oropharynx clear without exudates. Moist mucous membranes. NECK: Normal range of motion, supple without lymphadenopathy, JVD, or masses. LUNGS: Breath sounds equal, clear to auscultation bilaterally. No wheezes, and no crackles. HEART: Regular rate and rhythm, normal S1 and S2 without murmur, rub or gallop. ABDOMEN: Soft, nontender, normoactive bowel sounds. No guarding, no rebound. No masses palpable. EXTREMITIES: No thrill and no bruits in RUE fistula. Normal range of motion, no edema. No clubbing or cyanosis. No erythema, or tenderness. NEUROLOGICAL: Cranial nerves II through XII grossly intact. Normal speech. No focal neurological deficits. MUSCULOSKELETAL: Back non-tender to palpation, no CVA tenderness SKIN: Warm, Dry, normal turgor, no rashes or lesions noted. <Bernard Anglin - Last Filed: 08/09/16 15:49> - Vital Signs Last Vital Signs Temp Pulse Resp BP Pulse Ox 98.4 F 76 18 150/75 100 08/09/16 15:04 08/09/16 15:04 08/09/16 15:04 08/09/16 15:04 08/09/16 15:04 <Tatianna Salazar - Last Filed: 08/10/16 17:27> Heart Score/ECG Review #1 ECG reviewed & interpreted by me at: 18:57 08/09/16 18:57 Twelve-lead EKG was performed and reviewed by me. There is normal sinus rhythm with a normal rate of 70 bpm. The axis is normal. The intervals are normal - pr: 158ms, QRS:86ms, QTc:423ms. There are no ST elevations or depressions. Prominent T wave v2, v3 <Tatianna Salazar - Last Filed: 08/10/16 17:27> ED Treatment Course - LABORATORY CBC & Chemistry Diagram: 08/09/16 15:23 08/09/16 15:23 - ADDITIONAL ORDERS Additional order review: 08/09/16 15:23 RBC 3.60 L MCV 91.1 MCHC 31.9 L RDW 17.5 H D MPV 8.6 Neutrophils % 64.1 Lymphocytes % 22.2 D Monocytes % 8.6 Eosinophils % 3.5 Basophils % 1.6 <Bernard Anglin - Last Filed: 08/09/16 15:49> - LABORATORY CBC & Chemistry Diagram: 08/10/16 07:00 08/10/16 07:00 - RADIOLOGY Radiology Studies Ordered: Category Date Time Status CHEST X-RAY PORTABLE* [RAD] Stat Radiology 08/09/16 15:11 Ordered <Tatianna Salazar - Last Filed: 08/10/16 17:27> Medical Decision Making - Medical Decision Making 08/09/16 15:49 Fredy made to , case discussed. Call made to waiting for call back. <Bernard Anglin - Last Filed: 08/09/16 15:49> - Medical Decision Making 08/09/16 16:12 A portion of this note was documented by scribe services under my direction. I have reviewed the details of the note, within reason, and agree with the documentation with the following case summary and management plan written by me. Nursing documentation reviewed and incorporated into medical decision making This is a 55 yo M with a history of DM, HTN. ESRD on HD T/R/S Pt presents to the ER after seeing Carlos Right UE fistula no thrill, no bruit PT being taken to the OR for repair Pt hyperkalemic call placed to Dr. Lloyd She recommends albuterol Case reviewed with Dr Villa Will admit Pt going to the OR Will need dialysis Laboratory Tests 08/09/16 15:23 Potassium 6.2 H* D BUN 105 H* D Creatinine 10.9 H* D <Tatianna Salazar - Last Filed: 08/10/16 17:27> *DC/Admit/Observation/Transfer - Attestations Scribe Attestion: 08/09/16 15:46 Documentation prepared by Bernard Anglin, acting as medical record librarian for Tatianna Salazar MD. <Bernard Anglin - Last Filed: 08/09/16 15:49> - Discharge Dispostion Admit: Yes <Tatianna Salazar - Last Filed: 08/10/16 17:27> Diagnosis at time of Disposition: Hyperkalemia Shunt malfunction Qualifiers: Encounter type: initial encounter Qualified Code(s): T85.698A - Other mechanical complication of other specified internal prosthetic devices, implants and grafts, initial encounter - Discharge Dispostion Condition at time of disposition: Stable - Prescriptions - Referrals
[2016-08-09 15:29] LABS: BASOPHIL 1.6 % (0-2.0); EOSINOPHIL 3.5 % (0-4.5); MCHC 31.9 g/dl (32.0-35.9); MEAN CELL VOLUME 91.1 fl (80-96); MEAN PLT VOLUME 8.6 fl (7.5-11.1); NEUTROPHILS 64.1 % (42.8-82.8); PLATELET COUNT 172 K/MM3 (134-434); RDW 17.5 % (11.9-15.9); WHITE BLOOD COUNT 4.9 K/mm3 (4.0-10.0)
[2016-08-09 15:49] LABS: BILIRUBIN,TOTAL 0.4 mg/dL (0.2-1.0); CALCIUM 8.2 mg/dL (8.5-10.1); TOT PROT 8.7 g/dl (6.4-8.2)
[2016-08-09 16:02] LABS: CREATININE 10.9 mg/dL (0.7-1.3)
[2016-08-09] MEDS ORDERED: ALBUTEROL SO4 0.083% IH SOL 2.5 MG/3 ML VIAL.NEB. NEB ONE ×3 (16:07→16:18)
[2016-08-09] MEDS ORDERED: LIDOCAINE HCL 1%, 10 MG/ML (20ML VIAL) IJ ONE ×2 (16:20)
[2016-08-09] MEDS ORDERED: LIDOCAINE HCL 1%, 10 MG/ML (20ML VIAL) ONE (16:34)
[2016-08-09] MEDS ORDERED: HEPARIN NA (PORCINE) 5,000 UNITS/ML 1ML VIAL ONE ×2 (16:34→17:24)
--- NOTE | 2016-08-09 16:47 | CONSULT ---
Consult - History of Present Illness History of Present Illness: 55 year old male ESRD on HD with clotted AV graft right arm. Last HD on Friday. Patient with hx of venous thrombosis of central veins. Has HeRO graft placed 1 month ago. - History Source History Provided By: Patient, Medical Record Limitations to Obtaining History: No Limitations - Past Medical History Cardio/Vascular: Yes: CAD, HTN Renal/: Yes: Renal Failure, Hemodialysis Endocrine: Yes: Diabetes Mellitus - Past Surgical History Past Surgical History: Yes: AV Fistula/Graft - Alcohol/Substance Use Hx Alcohol Use: No - Smoking History Smoking history: Never smoked Have you smoked in the past 12 months: No Aproximately how many cigarettes per day: 0 - Social History Usual Living Arrangement: With Spouse Home Medications - Allergies Allergies/Adverse Reactions: Allergies Allergy/AdvReac Type Severity Reaction Status Date / Time No Known Drug Allergies Allergy Verified 08/09/16 15:03 - Home Medications Home Medications: Ambulatory Orders Aspirin 81 mg PO DAILY #0 tab.chew 01/07/13 Calcium Acetate [Phoslo -] 667 mg PO TIDCM 10/10/14 Esomeprazole Mag Trihydrate [Nexium] 40 mg PO DAILY 10/10/14 Metoprolol Tartrate [Lopressor -] 25 mg PO BID 10/10/14 Losartan Potassium [Cozaar -] 50 mg PO DAILY tablet 10/26/14 Amlodipine Besylate [Norvasc -] 10 mg PO DAILY tablet 06/14/16 Atorvastatin Ca [Lipitor] 10 mg PO HS #30 tablet 06/14/16 Oxycodone HCl [Roxicodone -] 5 mg PO Q4H PRN #20 tablet MDD 3 06/14/16 Insulin (Novolog) [Novolog Flexpen -] 30 units SQ BID 07/05/16 Insulin Glargine,Hum.rec.anlog [Lantus (10mL VIAL) -] 30 units SQ HS 07/05/16 Clopidogrel Bisulfate [Plavix -] 75 mg PO DAILY #30 tablet 07/11/16 Oxycodone HCl/Acetaminophen [Percocet 5-325 mg Tablet] 1 tab PO Q4H PRN #20 tablet MDD 6 07/11/16 Oxycodone HCl/Acetaminophen [Percocet 5-325 mg Tablet -] 1 - 2 tab PO Q4H #60 tablet MDD 8 07/14/16 Physical Exam Vital Signs: Vital Signs Temperature 98.4 F 08/09/16 15:04 Pulse Rate 62 08/09/16 16:15 Respiratory Rate 20 08/09/16 16:15 Blood Pressure 156/91 08/09/16 16:15 O2 Sat by Pulse Oximetry (%) 93 L 08/09/16 16:15 Constitutional: Yes: No Distress Eyes: Yes: WNL HENT: Yes: WNL Neck: Yes: WNL, Supple Cardiovascular: Yes: WNL, Regular Rate and Rhythm Respiratory: Yes: Regular Gastrointestinal: Yes: Normal Bowel Sounds, Soft Extremities: Yes: Other (Right arm 2+ edema. No bruit.) Labs: CBC, BMP 08/09/16 15:23 08/09/16 15:23 Problem List - Problems (1) ESRD (end stage renal disease) on dialysis Assessment/Plan: Thrombosed AV graft. Will plan thrombectomy in OR. Dr. Lloyd consulted for dialysis later today. Code(s): N18.6 - END STAGE RENAL DISEASE Z99.2 - DEPENDENCE ON RENAL DIALYSIS (2) Thrombosis of dialysis vascular access Assessment/Plan: Patient acts as if he has a hypercoagulable state. Will need to be on anticoagulation post op. Code(s): T82.868A - THROMBOSIS DUE TO VASCULAR PROSTH DEV/GRFT, INIT Qualifiers: Encounter type: initial encounter Qualified Code(s): T82.868A - Thrombosis of vascular prosthetic devices, implants and grafts, initial encounter
[2016-08-09] MEDS ORDERED: PROPOFOL 20 ML ONE (17:08)
[2016-08-09] MEDS ORDERED: MIDAZOLAM HCL 2 MG/2 ML SINGLE DOSE VIAL ONE (17:10)
[2016-08-09] MEDS ORDERED: EPOETIN ALFA 2,000 UNITS/1 ML VIAL IVPUSH ONE (17:35)
--- NOTE | 2016-08-09 17:39 | PN ---
Progress Note (short form) - Note Progress Note: RENAL 55 S/P RT ARM HERO GRAFT PLACEMENT 1 MONTH BACK COMES IN CLOTTED LAST HD TUES K 6.2 GIVEN ALBUTEROL 10MG NEBULIZED ONCE IN THE OR ONCE DECLOTTED WILL DIALYZE TONIGHT 2 HR K2 CA2.5 TARGET 3 KG EOP 5K REPEAT HD IN AM 3 HR TARGET 3 KG ON ASA81 PLAVIX 75 IF CLOTTING ON THAT WILL NEED TO DECIDE IF CAN COME PLAVIX AND STARY ON ASA AND COUMADIN OR NEEDS ALL 3 PLEASE CALL FOR QUESTIONS HD NURSE AWARE DR ROBERTSON [phone]
[2016-08-09] MEDS ORDERED: oxyCODONE HCL 5 MG TABLET PO PRN (17:54)
--- NOTE | 2016-08-09 18:01 | OP ---
Operative Note - Note: Operative Date: 08/09/16 Pre-Operative Diagnosis: Clotted AV graft Operation: Percutaneous thrombectomy AV graft. Venogram Findings: Clotted graft with HeRO catheter. No stenoses seen in graft r arterial anastomosis. Post-Operative Diagnosis: Same as Pre-op Surgeon: Reymundo Gonzalez Anesthesiologist/PARKING SUPERVISOR: Callum Celestin Anesthesia: Fractional Estimated Blood Loss (mls): 30
[2016-08-09] MEDS ORDERED: EPOETIN ALFA 3,000 UNIT, EPOETIN ALFA 2,000 UNIT IVPUSH SCH (18:15)
[2016-08-09] MEDS ORDERED: ALBUTEROL SO4 0.083% IH SOL 2.5 MG/3 ML VIAL.NEB. NEB PRN (21:50)
[2016-08-09] MEDS ORDERED: [UNRECOGNIZED DRUG - OTHER] SQ SCH (22:00)
[2016-08-09] MEDS ORDERED: INSULIN DETEMIR 100 UNITS/ML MDV SQ SCH (22:00)
[2016-08-09] MEDS ORDERED: INSULIN ASPART SQ SCH (22:00)
[2016-08-09] MEDS ORDERED: ATORVASTATIN CA 10 MG TABLET (FP) PO SCH (22:00)
[2016-08-09] MEDS: APIXABAN 2.5 MG TABLET PO SCH (22:52)
[2016-08-09] MEDS: METOPROLOL TARTRATE 25 MG TABLET (FP) PO SCH (22:53)
[2016-08-09] MEDS: INSULIN SLIDING SCALE (NOVOLOG) 1 VIAL SQ SCH (22:53)
[2016-08-09] MEDS ORDERED: ZOLPIDEM TARTRATE 5 MG TABLET PO PRN (23:26)
[2016-08-10] MEDS: INSULIN SLIDING SCALE (NOVOLOG) 1 VIAL SQ SCH ×2 (06:34→12:39)
[2016-08-10] MEDS ORDERED: INSULIN (NOVOLOG) ASPART 100 UNITS/ML 10ML VIAL SQ SCH (07:00)
[2016-08-10] MEDS ORDERED: CALCIUM ACETATE 667 MG CAPSULE (FP) PO SCH ×2 (08:00→09:33)
[2016-08-10 08:38] LABS: BASOPHIL 0.7 % (0-2.0); EOSINOPHIL 3.7 % (0-4.5); MEAN CELL VOLUME 90.8 fl (80-96); MEAN PLT VOLUME 8.1 fl (7.5-11.1); NEUTROPHILS 56.7 % (42.8-82.8); PLATELET COUNT 152 K/MM3 (134-434); RDW 17.1 % (11.9-15.9); WHITE BLOOD COUNT 4.2 K/mm3 (4.0-10.0)
[2016-08-10 09:32] LABS: ALBUMIN 3.3 g/dl (3.4-5.0); BILIRUBIN,TOTAL 0.3 mg/dL (0.2-1.0); CALCIUM 7.9 mg/dL (8.5-10.1); TOT PROT 7.3 g/dl (6.4-8.2)
[2016-08-10 09:35] LABS: CREATININE 8.5 mg/dL (0.7-1.3)
--- NOTE | 2016-08-10 09:35 | PN ---
Progress Note (short form) - Note Progress Note: RENAL 55 S/P RT ARM HERO GRAFT PLACEMENT 1 MONTH BACK COMES IN CLOTTED LAST HD TUES K 6.2 GIVEN ALBUTEROL 10MG NEBULIZED ONCE IN THE OR ONCE DIALYZED LAST NIGHT 3 KG REMOVED SEEN AT HD NOW 3 HR K2 CA2.5 TARGET 3 BP 125/70 STARTED ON ELIQUIS2.5 BID AND ASA 81 OFF PLAVIX PLEASE CALL FOR QUESTIONS CAN PERHAPS DC HOME TODAY DR ROBERTSON [phone]
[2016-08-10] MEDS ORDERED: LOSARTAN POTASSIUM 50 MG TABLET (FP) PO SCH (10:00)
[2016-08-10] MEDS ORDERED: amLODIPine BESYLATE 10 MG TABLET (FP) PO SCH (10:00)
[2016-08-10] MEDS ORDERED: ASPIRIN 81 MG CHEWABLE TABLETS PO SCH (10:00)
[2016-08-10] MEDS ORDERED: PANTOPRAZOLE 40 MG TABLET (FP) PO SCH (10:00)
--- NOTE | 2016-08-10 10:21 | PN ---
Progress Note (short form) - Note Progress Note: On dialysis, no problem with graft. Will discharge on ASA and Eliquis due to propensity to thrombose veins and grafts. I will follow in office with Duplex of graft. Problem List - Problems (1) ESRD (end stage renal disease) on dialysis Code(s): N18.6 - END STAGE RENAL DISEASE Z99.2 - DEPENDENCE ON RENAL DIALYSIS (2) Thrombosis of dialysis vascular access Code(s): T82.868A - THROMBOSIS DUE TO VASCULAR PROSTH DEV/GRFT, INIT Qualifiers: Encounter type: initial encounter Qualified Code(s): T82.868A - Thrombosis of vascular prosthetic devices, implants and grafts, initial encounter
[2016-08-10 10:53] VITALS: BP 112/50; PULSE 80; TEMP 97.5
[2016-08-10] MEDS: METOPROLOL TARTRATE 25 MG TABLET (FP) PO SCH (11:15)
[2016-08-10] MEDS: APIXABAN 2.5 MG TABLET PO SCH (11:16)
--- NOTE | 2016-08-10 13:22 | EKG ---
Test Reason : Blood Pressure : / mmHG Vent. Rate : 070 BPM Atrial Rate : 070 BPM P-R Int : 158 ms QRS Dur : 086 ms QT Int : 392 ms P-R-T Axes : 043 -24 101 degrees QTc Int : 423 ms NORMAL SINUS RHYTHM POSSIBLE LEFT ATRIAL ENLARGEMENT T WAVE ABNORMALITY, CONSIDER LATERAL ISCHEMIA CANNOT RULE OUT SEPTAL INFARCT , AGE UNDETERMINED ABNORMAL ECG WHEN COMPARED WITH ECG OF 12-JUN-2016 14:11, NO SIGNIFICANT CHANGE WAS FOUND Confirmed by REGI OZUNA MD ([id number]) on 08/10/2016 1:22:17 PM Referred By: Confirmed By:REGI OZUNA MD
--- NOTE | 2016-08-10 13:34 | HP ---
Admitting History and Physical - Primary Care Physician PCP: David Villa - Admission Chief Complaint: clotted av graft History of Present Illness: The patient is a 55 year old male, with a significant past medical history of CAD x3 stents, DM, dialysis (friday, , friday), and HTN who presents to the emergency department with dialysis shunt complications. Patient reports having a right arm fistula malfunction and was sent in by for pre- op. Patient went to dialysis yesterday and they could find/acess fistula.He denies fever, chills, headache and dizziness. He denies nausea, vomit, diarrhea and constipation. Allergies: NKDA Social History: Nonsmoker. PCP: pt found to have clooted av graft Underwent thrombectomy yesterday chart reviewed feels well s/p dialysis yesterday and today denies cp/ sob/ abd pain. no headche/ dizziness History Source: Patient Limitations to Obtaining History: No Limitations - Past Medical History Cardiovascular: Yes: CAD, HTN Renal/: Yes: Renal Failure, Hemodialysis Heme/Onc: Yes: Anemia Endocrine: Yes: Diabetes Mellitus - Past Surgical History Past Surgical History: Yes: AV Fistula/Graft - Smoking History Smoking history: Never smoked Have you smoked in the past 12 months: No Aproximately how many cigarettes per day: 0 - Alcohol/Substance Use Hx Alcohol Use: No Home Medications - Allergies Allergies/Adverse Reactions: Allergies Allergy/AdvReac Type Severity Reaction Status Date / Time No Known Drug Allergies Allergy Verified 08/09/16 15:03 - Home Medications Home Medications: Ambulatory Orders Aspirin 81 mg PO DAILY #0 tab.chew 01/07/13 Calcium Acetate [Phoslo -] 667 mg PO TIDCM 10/10/14 Esomeprazole Mag Trihydrate [Nexium] 40 mg PO DAILY 10/10/14 Metoprolol Tartrate [Lopressor -] 25 mg PO BID 10/10/14 Losartan Potassium [Cozaar -] 50 mg PO DAILY tablet 10/26/14 Amlodipine Besylate [Norvasc -] 10 mg PO DAILY tablet 06/14/16 Atorvastatin Ca [Lipitor] 10 mg PO HS #30 tablet 06/14/16 Insulin Glargine,Hum.rec.anlog [Lantus (10mL VIAL) -] 30 units SQ HS 07/05/16 Albuterol 0.083% Nebulizer Faviola [Ventolin 0.083% Nebulizer Soln -] 1 amp NEB Q4H PRN #0 amp 08/10/16 Apixaban [Eliquis -] 2.5 mg PO BID tablet 08/10/16 Apixaban [Eliquis] 2.5 mg PO BID 08/10/16 Epoetin Jared [Procrit -] 5,000 unit IVPUSH POSTDI ml 08/10/16 Novolin 70-30 100 Unit/ml Vial 30 units SQ BID 08/10/16 Oxycodone HCl [Roxicodone -] 5 mg PO Q4H PRN #15 tablet MDD 3 08/10/16 Zolpidem Tartrate [Ambien] 5 mg PO HS PRN #30 tablet MDD 1 08/10/16 Review of Systems Unable to obtain ROS, reason: see sokaogon Physical Examination Vital Signs: Vital Signs Temperature 97.5 F L 08/10/16 10:52 Pulse Rate 80 08/10/16 10:52 Respiratory Rate 20 08/10/16 10:52 Blood Pressure 112/50 08/10/16 10:52 O2 Sat by Pulse Oximetry (%) 96 08/09/16 18:35 Constitutional: Yes: No Distress, Calm Eyes: Yes: Conjunctiva Clear Neck: Yes: Supple Cardiovascular: Yes: Regular Rate and Rhythm Respiratory: Yes: CTA Bilaterally Gastrointestinal: Yes: Soft Edema: No Wound/Incision: Yes: Other (s/p right arm surgery - av graft-- site clean) Neurological: Yes: Alert Labs: CBC, BMP 08/10/16 07:00 08/10/16 07:00 Imaging - Results Chest X-ray: Report Reviewed Problem List - Problems (1) Hyperkalemia Code(s): E87.5 - HYPERKALEMIA (2) Shunt malfunction Code(s): T85.698A - [facility] COMPL OF INTERNAL PROSTH DEV/GRFT, INIT Qualifiers: Encounter type: initial encounter Qualified Code(s): T85.698A - Other mechanical complication of other specified internal prosthetic devices, implants and grafts, initial encounter (3) Diabetes Code(s): E11.9 - TYPE 2 DIABETES MELLITUS WITHOUT COMPLICATIONS Qualifiers: Diabetes mellitus type: type 1 Diabetes mellitus complication detail: with chronic kidney disease Chronic kidney disease stage: on chronic dialysis (4) ESRD (end stage renal disease) on dialysis Code(s): N18.6 - END STAGE RENAL DISEASE Z99.2 - DEPENDENCE ON RENAL DIALYSIS (5) HTN (hypertension) Code(s): I10 - ESSENTIAL (PRIMARY) HYPERTENSION Qualifiers: Hypertension type: essential hypertension Qualified Code(s): I10 - Essential (primary) hypertension Assessment/Plan s/p thrombectomy shunt working stable d/c home meds reconcilled/ updated f/u in office as advised pt in agreement
[2016-08-14 00:15] LABS: HEP B SURFACE AB Reactive (.)
--- NOTE | 2016-08-29 11:14 | OP ---
DATE OF OPERATION: 08/09/2016 SURGEON: Reymundo West MD PROCEDURE: Percutaneous thrombectomy of right arm arteriovenous graft with venography. PREOPERATIVE DIAGNOSIS: Thrombosed arteriovenous graft. POSTOPERATIVE DIAGNOSIS: Thrombosed arteriovenous graft. ANESTHESIA: Fractional. ANESTHESIOLOGIST: Callum Celestin MD OPERATIVE FINDINGS: The AV graft and HeRO catheter were thrombosed. After thrombectomy, there was no evidence of stenosis at the arterial anastomosis or the venous outflow catheter. OPERATIVE PROCEDURE: Following routine patient identification with side and site verification, intravenous sedation was established. The right arm was prepped with ChloraPrep. Xylocaine 1% was infiltrated over the proximal end of the graft, and using real-time duplex imaging, the graft was cannulated with a micropuncture needle. Fine wire was passed into the graft, and the needle exchanged for a 5-Albanian catheter. A angle-tip wire was then advanced towards the venous outflow catheter. A long 7-Albanian sheath was inserted over the wire. Catheter was advanced over the wire into the right atrium and angiography performed. The catheter was removed. A No. 4 Wili catheter was then used to perform thrombectomy on the graft catheter and venous limb of the graft with removal of clot through the side arm of the sheath. After multiple passes of the catheter, venous blood returned resumed. Venogram was performed through the sheath and revealed no evidence of narrowing within the graft lumen. A second 7-Albanian sheath was then placed in the proximal end of the graft near the connecting hub. This was pointed towards the arterial anastomosis. The wire and the catheter were then advanced into the brachial artery and a brachial angiogram performed. The thrombectomy balloon was used to withdraw clots through the arterial anastomosis and restore arterial flow. Completion venogram showed good flow through the graft with no evidence of arterial anastomotic stenosis. The sheaths were removed, and bleeding controlled with pursestring sutures of nylon. Sterile dressings were applied, and the patient was taken to the recovery room in stable condition. REYMUNDO WEST M.D. [id number]
== END 2016-08-10 14:50 | disposition home or self-care (01) ==
LOC: JER 15:00 → JERBED 17:15 → UNDOADMOB 17:15 → J5S 19:30 → JERBED 19:30 → INTOOBSV 21:50 → OBSVTOIN 21:50 → J5S 08-10 13:29 → JERBED 08-10 13:29
PROVIDERS: ADMIT Internal Medicine; ATTEND Internal Medicine
PROC: B50MYZZ Plain Radiography of Right Upper Extremity Veins using Other Contrast (ICD-10-PCS; 2016-08-09)
PROC: 05C93ZZ Extirpation of Matter from Right Brachial Vein, Percutaneous Approach (ICD-10-PCS; principal; 2016-08-09 15:36)
DX: T82.868A Thrombosis due to vascular prosthetic devices, implants and grafts, initial encounter (principal); I25.10 Atherosclerotic heart disease of native coronary artery without angina pectoris; E11.9 Type 2 diabetes mellitus without complications; I12.0 Hypertensive chronic kidney disease with stage 5 chronic kidney disease or end stage renal disease; N18.6 End stage renal disease; Z99.2 Dependence on renal dialysis; D64.9 Anemia, unspecified; Z95.5 Presence of coronary angioplasty implant and graft
CPT/HCPCS: 36415; 71010-TC; 76000-TC; 80053; 85025; 86704; 86706; 86708; 87340; 93005; 93010; 94760; 99284-25; G0378; J0885; J1644

== ENCOUNTER 2016-09-09 16:46 | Day surgery (SDC) | payer OTHER ==
--- NOTE | 2016-09-09 16:50 | PDOC ---
Rapid Medical Evaluation Time Seen by Provider: 09/09/16 16:49 Medical Evaluation: Allergies Allergy/AdvReac Type Severity Reaction Status Date / Time No Known Drug Allergies Allergy Verified 08/09/16 15:03 o I have performed a brief in-person evaluation of this patient. o The patient presents with a chief complaint of: clogged dialysis shunt; supposed to have dialysis today but could not. marilyn is surgeon o Pertinent physical exam findings: fistula right upper arm o I have ordered the following: nothing o The patient will proceed to the ED for further evaluation.
[2016-09-09] MEDS ORDERED: LIDOCAINE HCL 1%, 10 MG/ML (20ML VIAL) ONE (17:51)
[2016-09-09] MEDS ORDERED: HEPARIN NA (PORCINE) 5,000 UNITS/ML 1ML VIAL ONE (17:51)
[2016-09-09] MEDS ORDERED: POVIDONE-IODINE OINTMENT 10% - 28.4 GM TUBE ONE (17:52)
--- NOTE | 2016-09-09 18:00 | PDOC ---
History of Present Illness <Taylor Albright - Last Filed: 09/09/16 18:00> - History of Present Illness Initial Comments: 09/09/16 18:10 Patient is a 55 year old male with significant medical hx of CAD x3 stents, DM, HTN, and ESRD (dialysis //Fri) who has been sent to the ED by Dr. Gonzalez for clotted right AV graft. The patient offers no complaints and denies any fever, chills, nausea, vomiting, diarrhea, shortness of breath, chest pain or urinary complaints. PMD: Singh Sandra MD <Jess Menendez - Last Filed: 09/09/16 18:12> - General Chief Complaint: Dialysis Shunt Problem Stated Complaint: PCP SENT Time Seen by Provider: 09/09/16 16:49 Past History - Past Medical History Anemia: No Asthma: No Cancer: No Cardiac Disorders: Yes (3 stents (2006/2009/2014)) CVA: No COPD: No CHF: No Dementia: No Diabetes: Yes (IDDM) Dialysis: Yes () GI Disorders: No Disorders: No HTN: Yes Hypercholesterolemia: No Liver Disease: No Seizures: No Thyroid Disease: No - Surgical History Abdominal Surgery: No Appendectomy: No Cardiac Surgery: Yes (cardiac stents x 3) Cholecystectomy: No Lung Surgery: No Neurologic Surgery: No Orthopedic Surgery: Yes (OR debridement left foot wound) - Psycho/Social/Smoking Cessation Hx Anxiety: No Suicidal Ideation: No Smoking Status: No Smoking History: Never smoked Have you smoked in the past 12 months: No Number of Cigarettes Smoked Daily: 0 Information on smoking cessation initiated: No Hx Alcohol Use: No Drug/Substance Use Hx: No Substance Use Type: None Hx Substance Use Treatment: No <Taylor Albright - Last Filed: 09/09/16 18:00> <Jess Menendez - Last Filed: 09/09/16 18:12> - Past Medical History Allergies/Adverse Reactions: Allergies Allergy/AdvReac Type Severity Reaction Status Date / Time No Known Drug Allergies Allergy Verified 09/09/16 16:53 Home Medications: Ambulatory Orders Aspirin 81 mg PO DAILY #0 tab.chew 01/07/13 Calcium Acetate [Phoslo -] 667 mg PO TIDCM 10/10/14 Esomeprazole Mag Trihydrate [Nexium] 40 mg PO DAILY 10/10/14 Metoprolol Tartrate [Lopressor -] 25 mg PO BID 10/10/14 Losartan Potassium [Cozaar -] 50 mg PO DAILY tablet 10/26/14 Amlodipine Besylate [Norvasc -] 10 mg PO DAILY tablet 06/14/16 Atorvastatin Ca [Lipitor] 10 mg PO HS #30 tablet 06/14/16 Insulin Glargine,Hum.rec.anlog [Lantus (10mL VIAL) -] 30 units SQ HS 07/05/16 Albuterol 0.083% Nebulizer Faviola [Ventolin 0.083% Nebulizer Soln -] 1 amp NEB Q4H PRN #0 amp 08/10/16 Apixaban [Eliquis -] 2.5 mg PO BID #60 tablet 08/10/16 Apixaban [Eliquis] 2.5 mg PO BID 08/10/16 Epoetin Jared [Procrit -] 5,000 unit IVPUSH POSTDI ml 08/10/16 Novolin 70-30 100 Unit/ml Vial 30 units SQ BID 08/10/16 Oxycodone HCl [Roxicodone -] 5 mg PO Q4H PRN #15 tablet MDD 3 08/10/16 Zolpidem Tartrate [Ambien] 5 mg PO HS PRN #30 tablet MDD 1 08/10/16 Review of Systems - Review of Systems Comments:: 09/09/16 18:03 CONSTITUTIONAL: Absent: fever, chills, diaphoresis, generalized weakness, malaise, loss of appetite HEENT: Absent: rhinorrhea, nasal congestion, throat pain, throat swelling, difficulty swallowing, mouth swelling, ear pain, eye pain, visual changes CARDIOVASCULAR: Absent: chest pain, syncope, palpitations, irregular heart rate, lightheadedness , peripheral edema RESPIRATORY: Absent: cough, shortness of breath, dyspnea with exertion, orthopnea, wheezing, stridor, hemoptysis GASTROINTESTINAL: Absent: abdominal pain, abdominal distension, nausea, vomiting, diarrhea, constipation, melena, hematochezia GENITOURINARY: Absent: dysuria, frequency, urgency, hesitancy, hematuria, flank pain, genital pain MUSCULOSKELETAL: Absent: myalgia, arthralgia, joint swelling SKIN: Absent: rash, itching, pallor HEMATOLOGIC/IMMUNOLOGIC: Absent: easy bleeding, easy bruising, lymphadenopathy, frequent infections ENDOCRINE: Absent: unexplained weight gain, unexplained weight loss, heat intolerance, cold intolerance NEUROLOGIC: Absent: headache, focal weakness or paresthesia, dizziness, unsteady gait, seizure, mental status changes, bladder or bowel incontinence. PSYCHIATRIC: Absent: anxiety, depression, suicidal or homicidal ideation, hallucinations <Jess Menendez - Last Filed: 09/09/16 18:12> *Physical Exam - Vital Signs Last Vital Signs Temp Pulse Resp BP Pulse Ox 97.4 F L 70 18 157/85 97 09/09/16 16:48 09/09/16 16:48 09/09/16 16:48 09/09/16 16:48 09/09/16 16:48 <Taylor Albright - Last Filed: 09/09/16 18:00> - Vital Signs Last Vital Signs Temp Pulse Resp BP Pulse Ox 97.4 F L 70 18 157/85 97 09/09/16 16:48 09/09/16 16:48 09/09/16 16:48 09/09/16 16:48 09/09/16 16:48 - Physical Exam Comments: 09/09/16 18:03 GENERAL: Well developed, well nourished. Awake and alert. No acute distress. HEENT: Normocephalic, atraumatic. PERRLA, EOMI. No conjunctival pallor. Sclera are non- icteric. Moist mucous membranes. Oropharynx is clear. NECK: Supple. Full ROM. No JVD. Carotid pulses 2+ and symmetric, without bruits. No thyromegaly. No lymphadenopathy. CARDIOVASCULAR: Regular rate and rhythm. No murmurs, rubs, or gallops. Distal pulses are 2+ and symmetric. PULMONARY: No evidence of respiratory distress. Lungs clear to auscultation bilaterally. No wheezing, rales or rhonchi. ABDOMINAL: Soft. Non-tender. Non-distended. No rebound or guarding. No organomegaly. Normoactive bowel sounds. MUSCULOSKELETAL: Normal range of motion at all joints. No bony deformities or tenderness. No CVA tenderness. EXTREMITIES: +3 pitting edema lower extremities bilaterally. Clotted right AV graft. No cyanosis. No clubbing. No calf tenderness. SKIN: Warm and dry. Normal capillary refill. No rashes. No jaundice. NEUROLOGICAL: Alert, awake, appropriate. Cranial nerves 2-12 intact. Normal speech. Gait is normal without ataxia. PSYCHIATRIC: Cooperative. Good eye contact. Appropriate mood and affect. <Jess Menendez - Last Filed: 09/09/16 18:12> *DC/Admit/Observation/Transfer - Discharge Dispostion Admit: Yes <Taylor Albright - Last Filed: 09/09/16 18:00> - Attestations Scribe Attestion: 09/09/16 18:05 Documentation prepared by Jess Menendez, acting as medical insurance coder for Taylor Albright MD. <Jess Menendez - Last Filed: 09/09/16 18:12> Diagnosis at time of Disposition: ESRD (end stage renal disease) on dialysis Shunt malfunction Qualifiers: Encounter type: initial encounter Qualified Code(s): T85.618A - Breakdown ( mechanical) of other specified internal prosthetic devices, implants and grafts , initial encounter - Referrals Referrals: Singh Sandra MD [Primary Care Provider] -
[2016-09-09] MEDS ORDERED: LIDOCAINE HCL 1%, 10 MG/ML (20ML VIAL) IJ ONE (18:46)
[2016-09-09 18:52] LABS: BASOPHIL 0.5 % (0-2.0); EOSINOPHIL 1.9 % (0-4.5); MCH 27.8 pg (25.7-33.7); MCHC 31.8 g/dl (32.0-35.9); MEAN CELL VOLUME 87.4 fl (80-96); MEAN PLT VOLUME 8.9 fl (7.5-11.1); NEUTROPHILS 66.7 % (42.8-82.8); PLATELET COUNT 229 K/MM3 (134-434); RDW 18.6 % (11.9-15.9); WHITE BLOOD COUNT 5.6 K/mm3 (4.0-10.0)
[2016-09-09 19:05] LABS: INR 1.32 (0.82-1.09); PROTHROMBIN TIME (PATIENT) 14.6 SEC (9.98-11.88)
[2016-09-09 19:18] VITALS: BMI 29.8
--- NOTE | 2016-09-09 19:30 | OP ---
Operative Note - Note: Operative Date: 09/09/16 Pre-Operative Diagnosis: Thrombosed AV graft Operation: Percutaneous thrombectomy, angioplasty AV graft right arm Findings: Thrombosed HeRo graft right arm. No anastomotic stenosis. Post-Operative Diagnosis: Same as Pre-op Surgeon: Reymundo Gonzalez Anesthesia: Local Estimated Blood Loss (mls): 30
--- NOTE | 2016-09-09 19:34 | HP ---
Admitting History and Physical - Admission History of Present Illness: [age] year old male ESRD on HD with clotted AV graft. He was clotted last month and was given Rx for Eliquis but did not take medicine. History Source: Patient - Past Medical History Cardiovascular: Yes: CAD, HTN Renal/: Yes: Renal Failure, Hemodialysis Heme/Onc: Yes: Anemia Endocrine: Yes: Diabetes Mellitus - Past Surgical History Past Surgical History: Yes: AV Fistula/Graft - Smoking History Smoking history: Never smoked Have you smoked in the past 12 months: No Aproximately how many cigarettes per day: 0 - Alcohol/Substance Use Hx Alcohol Use: No Home Medications - Allergies Allergies/Adverse Reactions: Allergies Allergy/AdvReac Type Severity Reaction Status Date / Time No Known Drug Allergies Allergy Verified 09/09/16 16:53 - Home Medications Home Medications: Ambulatory Orders Aspirin 81 mg PO DAILY #0 tab.chew 01/07/13 Calcium Acetate [Phoslo -] 667 mg PO TIDCM 10/10/14 Esomeprazole Mag Trihydrate [Nexium] 40 mg PO DAILY 10/10/14 Metoprolol Tartrate [Lopressor -] 25 mg PO BID 10/10/14 Losartan Potassium [Cozaar -] 50 mg PO DAILY tablet 10/26/14 Amlodipine Besylate [Norvasc -] 10 mg PO DAILY tablet 06/14/16 Atorvastatin Ca [Lipitor] 10 mg PO HS #30 tablet 06/14/16 Insulin Glargine,Hum.rec.anlog [Lantus (10mL VIAL) -] 30 units SQ HS 07/05/16 Albuterol 0.083% Nebulizer Faviola [Ventolin 0.083% Nebulizer Soln -] 1 amp NEB Q4H PRN #0 amp 08/10/16 Apixaban [Eliquis] 2.5 mg PO BID 08/10/16 Novolin 70-30 100 Unit/ml Vial 30 units SQ BID 08/10/16 Oxycodone HCl [Roxicodone -] 5 mg PO Q4H PRN #15 tablet MDD 3 08/10/16 Zolpidem Tartrate [Ambien] 5 mg PO HS PRN #30 tablet MDD 1 08/10/16 Physical Examination Vital Signs: Vital Signs Temperature 97.4 F L 09/09/16 16:48 Pulse Rate 70 09/09/16 16:48 Respiratory Rate 18 09/09/16 16:48 Blood Pressure 157/85 09/09/16 16:48 O2 Sat by Pulse Oximetry (%) 97 09/09/16 16:48 Constitutional: Yes: No Distress Eyes: Yes: WNL HENT: Yes: WNL Neck: Yes: WNL Cardiovascular: Yes: WNL Respiratory: Yes: WNL Gastrointestinal: Yes: WNL Extremities: Yes: Other (Right arm graft with no pulse or bruit.) Labs: CBC, BMP 09/09/16 18:44 09/09/16 18:44 Problem List - Problems (1) ESRD (end stage renal disease) on dialysis Code(s): N18.6 - END STAGE RENAL DISEASE Z99.2 - DEPENDENCE ON RENAL DIALYSIS (2) Shunt malfunction Assessment/Plan: Recurrent thrombosis AV graft. Plan thrombectomy. Patient urged to take Eliquis. Code(s): T85.698A - [facility] COMPL OF INTERNAL PROSTH DEV/GRFT, INIT Qualifiers: Encounter type: subsequent encounter Qualified Code(s): T85.618A - Breakdown (mechanical) of other specified internal prosthetic devices, implants and grafts, initial encounter
[2016-09-09] MEDS ORDERED: ACETAMINOPHEN 325 MG TABLET (FP) PO PRN (19:35)
[2016-09-10 00:42] VITALS: PULSE 77
[2016-09-10 01:04] VITALS: BP 154/77; TEMP 97.6
--- NOTE | 2016-09-10 13:12 | OP ---
DATE OF OPERATION: 09/09/2016 SURGEON: Reymundo West MD PROCEDURE: Percutaneous thrombectomy with angioplasty, right arm arteriovenous graft. PREOPERATIVE DIAGNOSIS: Thrombosed arteriovenous graft. POSTOPERATIVE DIAGNOSIS: Thrombosed arteriovenous graft. ANESTHESIA: Local. OPERATIVE FINDINGS: The right upper extremity Hero graft in the right arm was thrombosed. Following thrombectomy, there was no evidence of arterial anastomosis stenosis. A small amount of narrowing was seen within the graft lumen itself. OPERATIVE PROCEDURE: Following routine patient identification with side and site verification, the right arm was prepped with ChloraPrep. Using real-time duplex imaging, the AV graft was identified in the upper arm and had no flow. The graft was imaged in the distal arm near the arterial anastomosis, and lidocaine 1% was infiltrated over the graft. The graft was then cannulated using ultrasound guidance with a Micropuncture needle. A wire was passed into the graft lumen, and the needle was exchanged for a 5-Grenadian catheter. A J-tip wire was placed into the graft, and a 7-Grenadian sheath was exchanged over the wire. A Bringrrenstein catheter and angle-tip wire were then advanced under fluoroscopic guidance into the Hero catheter and into the right atrium. Contrast was injected to confirm placement. Heparin 4000 units was administered intravenously through the catheter. The wire was replaced, and the catheter was removed. A number 4 Wili catheter was then used to perform thrombectomy of the graft with removal of clot through the sheath which was removed, flushed, and replaced as needed. Once venous backbleeding was restored, a venography was performed with dilute contrast. Additional thrombus was seen within the graft lumen as well as a small area of stenosis. Thrombus was removed with repeated thrombectomy. The area of stenosis was dilated with a 7-mm balloon. A 2nd sheath was then placed in the proximal portion of the graft, directed distally towards the arterial anastomosis using ultrasound guidance. A thrombectomy catheter was passed distally into the brachial artery and withdrawn while a proximal balloon was inflated to prevent embolization. This restored arterial inflow. Several more passes of the catheter were performed to remove additional clot. The occluding balloon was removed and angiography performed with patent arterial anastomosis with no evidence of stenosis and no residual thrombus within the graft. Both sheaths were then removed and bleeding controlled with pursestring sutures of 3-0 nylon. Sterile dressings were applied, and the patient was taken to the recovery room in stable condition. REYMUNOD WEST M.D. DALILA/[id number]
--- NOTE | 2016-09-11 13:29 | EKG ---
Test Reason : Blood Pressure : / mmHG Vent. Rate : 066 BPM Atrial Rate : 066 BPM P-R Int : 166 ms QRS Dur : 090 ms QT Int : 420 ms P-R-T Axes : 005 -43 105 degrees QTc Int : 440 ms NORMAL SINUS RHYTHM LEFT AXIS DEVIATION SEPTAL INFARCT , AGE UNDETERMINED T WAVE ABNORMALITY, CONSIDER LATERAL ISCHEMIA ABNORMAL ECG WHEN COMPARED WITH ECG OF 09-AUG-2016 15:33, NO SIGNIFICANT CHANGE WAS FOUND Confirmed by JF WHITE MD ([id number]) on 09/11/2016 1:29:14 PM Referred By: Confirmed By:JF WHITE MD
[2016-09-13 00:07] LABS: HEP B SURFACE AB Reactive (.)
== END 2016-09-10 01:01 | disposition home or self-care (01) ==
LOC: JER 16:46 → JASUSAT 18:01 → J8W 19:30 → JER 09-10 01:01
PROVIDERS: ATTEND Surgery
PROC: 03CY3ZZ Extirpation of Matter from Upper Artery, Percutaneous Approach (ICD-10-PCS; 2016-09-09)
PROC: B34HZZ3 Ultrasonography of Right Upper Extremity Arteries, Intravascular (ICD-10-PCS; principal; 2016-09-09 18:20)
DX: T82.868A Thrombosis due to vascular prosthetic devices, implants and grafts, initial encounter (principal); I12.0 Hypertensive chronic kidney disease with stage 5 chronic kidney disease or end stage renal disease; E11.22 Type 2 diabetes mellitus with diabetic chronic kidney disease; N18.6 End stage renal disease; Z99.2 Dependence on renal dialysis
CPT/HCPCS: 36415; 76000-TC; 85025; 85610; 86704; 86706; 86708; 86850; 86900; 86901; 87340; 93005; 93010; 99283-25; J1644

== ENCOUNTER 2017-02-21 13:27 | Inpatient (IN) | payer OTHER ==
[2017-02-21] MEDS ORDERED: ONDANSETRON 4 MG/2 ML VIAL IVPUSH ONE (14:03)
[2017-02-21] MEDS ORDERED: ONDANSETRON 4 MG/2 ML VIAL ONE ×2 (14:30→18:03)
[2017-02-21] MEDS ORDERED: morphine CARPU-JECT 2 MG/1 ML DISP.SYRIN ONE ×5 (14:30→18:03)
[2017-02-21 14:32] LABS: BASOPHIL 0.3 % (0-2.0); EOSINOPHIL 0.1 % (0-4.5); MCHC 31.9 g/dl (32.0-35.9); MEAN CELL VOLUME 84.9 fl (80-96); MEAN PLT VOLUME 8.4 fl (7.5-11.1); NEUTROPHILS 77.7 % (42.8-82.8); PLATELET COUNT 273 K/MM3 (134-434); RDW 16.8 % (11.9-15.9); WHITE BLOOD COUNT 5.8 K/mm3 (4.0-10.0)
[2017-02-21] MEDS ORDERED: morphine CARPU-JECT 4 MG/1 ML DISP.SYRIN IVPUSH ONE ×3 (14:43→17:58)
--- NOTE | 2017-02-21 14:43 | PDOC ---
History of Present Illness - General History Source: Patient Exam Limitations: No Limitations - History of Present Illness Initial Comments: The patient is a 56 yo M with a PMHx significant for CAD x3 stents, DM, HTN, and ESRD (dialysis //Fri) who presents with diffuse abdominal pain worse in the epigastric region for 3 days. He also endorses vomiting for 2 days. He states he had dialysis yesterday. He notes a recent fall at his dialysis appointment where his L knee hit the floor. No head trauma or loc.No diarrhea. Last BM yesterday was normal. He denies hematochezia and melena. The patient denies hematuria, dysuria, urgency and frequency. He denies fevers, chills and cough. The patient notes his pain is mildly relieved by vomiting. The patient denies chest pain, palpitations, lightheadedness and SOB. He notes associated dry mouth and diaphoresis. <Lian Hobson - Last Filed: 02/21/17 15:05> - General History Source: Patient Exam Limitations: No Limitations <Tatianna Salazar - Last Filed: 02/21/17 19:27> - General Chief Complaint: Pain, Acute Stated Complaint: PAIN Time Seen by Provider: 02/21/17 13:58 Past History <Lian Hobson - Last Filed: 02/21/17 15:05> - Past Medical History Anemia: No Asthma: No Cancer: No Cardiac Disorders: Yes (3 stents (2006/2009/2014)) CVA: No COPD: No CHF: No Dementia: No Diabetes: Yes (IDDM) Dialysis: Yes (, , FRI RT ARM AV FISTULA) GI Disorders: No Disorders: No HTN: Yes Hypercholesterolemia: No Liver Disease: No Seizures: No Thyroid Disease: No - Surgical History Abdominal Surgery: No Appendectomy: No Cardiac Surgery: Yes (cardiac stents x 3) Cholecystectomy: No Lung Surgery: No Neurologic Surgery: No Orthopedic Surgery: Yes (OR debridement left foot wound) - Psycho/Social/Smoking Cessation Hx Anxiety: No Suicidal Ideation: No Smoking Status: No Smoking History: Never smoked Have you smoked in the past 12 months: No Number of Cigarettes Smoked Daily: 0 Information on smoking cessation initiated: No Hx Alcohol Use: No Drug/Substance Use Hx: No Substance Use Type: None Hx Substance Use Treatment: No <Tatianna Salazar - Last Filed: 02/21/17 19:27> - Past Medical History Allergies/Adverse Reactions: Allergies Allergy/AdvReac Type Severity Reaction Status Date / Time No Known Drug Allergies Allergy Verified 02/21/17 13:42 Home Medications: Ambulatory Orders Aspirin 81 mg PO DAILY #0 tab.chew 01/07/13 Calcium Acetate [Phoslo -] 667 mg PO TIDCM 10/10/14 Esomeprazole Mag Trihydrate [Nexium] 40 mg PO DAILY 10/10/14 Metoprolol Tartrate [Lopressor -] 25 mg PO BID 10/10/14 Losartan Potassium [Cozaar -] 50 mg PO DAILY tablet 10/26/14 Amlodipine Besylate [Norvasc -] 10 mg PO DAILY tablet 06/14/16 Atorvastatin Ca [Lipitor] 10 mg PO HS #30 tablet 06/14/16 Insulin Glargine,Hum.rec.anlog [Lantus (10mL VIAL) -] 30 units SQ HS 07/05/16 Albuterol 0.083% Nebulizer Faviola [Ventolin 0.083% Nebulizer Soln -] 1 amp NEB Q4H PRN #0 amp 08/10/16 Oxycodone HCl [Roxicodone -] 5 mg PO Q4H PRN #15 tablet MDD 3 08/10/16 Zolpidem Tartrate [Ambien] 5 mg PO HS PRN #30 tablet MDD 1 08/10/16 Rivaroxaban [Xarelto -] 15 mg PO DAILY #30 tab 09/09/16 Insulin (Novolog 70/30) [Novolog Mix 70/30 Flexpen -] 30 units SQ BID 02/21/17 Review of Systems - Review of Systems Able to Perform ROS?: Yes Comments:: GENERAL/CONSTITUTIONAL: No fever or chills. No weakness. HEAD, EYES, EARS, NOSE AND THROAT: No change in vision. No ear pain or discharge. No sore throat. CARDIOVASCULAR: No chest pain or shortness of breath. RESPIRATORY: No cough, wheezing, or hemoptysis. GASTROINTESTINAL: +nausea, vomiting No diarrhea or constipation. GENITOURINARY: No dysuria, frequency, or change in urination. MUSCULOSKELETAL: No joint or muscle swelling or pain. No neck or back pain. SKIN: No rash NEUROLOGIC: No headache, vertigo, loss of consciousness, or change in strength/ sensation. ALLERGIC/IMMUNOLOGIC: No hives or skin allergy. <Lian Hobson - Last Filed: 02/21/17 15:05> *Physical Exam - Vital Signs Last Vital Signs Temp Pulse Resp BP Pulse Ox 97.9 F 89 19 157/94 100 02/21/17 13:42 02/21/17 13:42 02/21/17 13:42 02/21/17 13:42 02/21/17 13:42 - Physical Exam Comments: GENERAL: Awake, alert, and fully oriented, vomiting upon evaluation. HEAD: No signs of trauma EYES: PERRLA, EOMI, sclera anicteric, conjunctiva clear ENT: Auricles normal inspection, hearing grossly normal, nares patent, oropharynx clear without exudates. Dry mucosa NECK: Normal ROM, supple, no lymphadenopathy, JVD, or masses LUNGS: Breath sounds equal, clear to auscultation bilaterally. No wheezes, and no crackles HEART: Regular rate and rhythm, normal S1 and S2, no murmurs, rubs or gallops ABDOMEN: Soft, tenderness to epigastric, RUQ and LUQ, normoactive bowel sounds. No guarding, no rebound. No masses EXTREMITIES: Normal range of motion, no edema. No clubbing or cyanosis. No cords, erythema, or tenderness NEUROLOGICAL: Cranial nerves II through XII grossly intact. Normal speech, normal gait SKIN: Warm, Dry, normal turgor, no rashes or lesions noted. <Lian Hobson - Last Filed: 02/21/17 15:05> - Vital Signs Last Vital Signs Temp Pulse Resp BP Pulse Ox 97.9 F 89 19 157/94 100 02/21/17 13:42 02/21/17 13:42 02/21/17 13:42 02/21/17 13:42 02/21/17 13:42 <Tatianna Salazar - Last Filed: 02/21/17 19:27> Heart Score/ECG Review #1 ECG reviewed & interpreted by me at: 19:23 02/21/17 19:24 Twelve-lead EKG was performed and reviewed by me. There is normal sinus rhythm with a normal rate of 75 bpm. Left axis deviation. The intervals are normal - pr :152ms, QRS:86ms, QTc:455ms. There are no ST elevations or depressions. T waves upright <Tatianna Salazar - Last Filed: 02/21/17 19:27> ED Treatment Course - LABORATORY CBC & Chemistry Diagram: 02/21/17 14:08 02/21/17 14:08 - ADDITIONAL ORDERS Additional order review: Laboratory Results 02/21/17 14:08 Sodium Cancelled Potassium Cancelled Chloride Cancelled Carbon Dioxide Cancelled Anion Gap Cancelled BUN Cancelled Creatinine Cancelled Creat Clearance w eGFR Cancelled Random Glucose Cancelled Calcium Cancelled Total Bilirubin Cancelled AST Cancelled ALT Cancelled Alkaline Phosphatase Cancelled Total Protein Cancelled Albumin Cancelled Total Amylase Cancelled Lipase Cancelled 02/21/17 14:08 RBC 4.38 MCV 84.9 MCHC 31.9 L RDW 16.8 H MPV 8.4 Neutrophils % 77.7 Lymphocytes % 14.3 D Monocytes % 7.6 Eosinophils % 0.1 D Basophils % 0.3 - Medications Given in the ED: ED Medications Discontinued Medications Generic Name Dose Route Start Last Admin Trade Name Freq PRN Reason Stop Dose Admin Morphine Sulfate 2 mg 02/21/17 14:43 02/21/17 14:45 Morphine Injection - IVPUSH 02/21/17 14:44 2 mg ONCE ONE Administration Ondansetron HCl 4 mg 02/21/17 14:03 02/21/17 14:36 Zofran Injection IVPUSH 02/21/17 14:04 4 mg ONCE ONE Administration <Lian Hobson - Last Filed: 02/21/17 15:05> - LABORATORY CBC & Chemistry Diagram: 02/21/17 14:08 02/21/17 14:58 - ADDITIONAL ORDERS Additional order review: 02/21/17 14:08 RBC 4.38 MCV 84.9 MCHC 31.9 L RDW 16.8 H MPV 8.4 Neutrophils % 77.7 Lymphocytes % 14.3 D Monocytes % 7.6 Eosinophils % 0.1 D Basophils % 0.3 - Medications Given in the ED: ED Medications Discontinued Medications Generic Name Dose Route Start Last Admin Trade Name Freq PRN Reason Stop Dose Admin Ondansetron HCl 4 mg 02/21/17 14:03 02/21/17 14:36 Zofran Injection IVPUSH 02/21/17 14:04 4 mg ONCE ONE Administration <Tatianna Salazar - Last Filed: 02/21/17 19:27> Medical Decision Making - Medical Decision Making 02/21/17 14:42 A portion of this note was documented by scribe services under my direction. I have reviewed the details of the note, within reason, and agree with the documentation with the following case summary and management plan written by me. Nursing documentation reviewed and incorporated into medical decision making This is a 56 yo M with a history of IDDM, ESRD on HD (T,R,S), pt presents to the ER with a complaint of abdominal pain Symptoms have been present for the past 3 days Worsened today No fevers or chills Pt has had nausea and vomiting No diarrhea - he has had loose stools 02/21/17 15:26 Laboratory Tests 02/21/17 14:08 WBC 5.8 Hgb 11.9 Hct 37.2 Plt Count 273 Neutrophils % 77.7 Lymphocytes % 14.3 D Pt given morphine 2mg IV Pt states he still has pain Will give additional Morphine 02/21/17 16:37 Laboratory Tests 02/21/17 14:58 INR 1.20 H 02/21/17 16:37 02/21/17 16:50 Laboratory Tests 02/21/17 14:58 Sodium 131 L Potassium 5.2 H Chloride 92 L Carbon Dioxide 29 D BUN 51 H D Creatinine 7.4 H Random Glucose 452 H* D AST 10 L D ALT 22 Creatine Kinase 51 Troponin I < 0.02 Total Amylase [address] and US results US demonstrates: minimal dilatation of the intrahepatic bile ducts 02/21/17 18:[address] demonstrates:gallbladder is an elongated/over distended without intraluminal stones It measure approximately 11 cm in sagittal length and 3 cm in AP dimention 02/21/17 18:[address] Tinsley He will see this patient in the ER Call placed to Dr. Lloyd to arrange for dialysis while inpatient Will call Dr Dubon <Tatianna Salazar - Last Filed: 02/21/17 19:27> *DC/Admit/Observation/Transfer - Attestations Scribe Attestion: Documentation prepared by Lian Hobson, acting as medical technologist blood bank for Tatianna Salazar MD/DO. <Lian Hobson - Last Filed: 02/21/17 15:05> - Discharge Dispostion Admit: Yes <Tatianna Salazar - Last Filed: 02/21/17 19:27> Diagnosis at time of Disposition: Cholelithiasis Qualifiers: Cholelithiasis location: gallbladder and bile duct Cholecystitis presence: without cholecystitis Biliary obstruction: without biliary obstruction Qualified Code(s): K80.70 - Calculus of gallbladder and bile duct without cholecystitis without obstruction - Discharge Dispostion Condition at time of disposition: Stable - Referrals
[2017-02-21] MEDS ORDERED: morphine CARPU-JECT 2 MG/1 ML DISP.SYRIN IVPUSH ONE (15:30)
[2017-02-21 15:57] LABS: INR 1.2 (0.82-1.09); PROTHROMBIN TIME (PATIENT) 13.2 SEC (9.98-11.88)
[2017-02-21 16:39] LABS: ALBUMIN 3.4 g/dl (3.4-5.0); AMYLASE 48 U/L (25-115); ANION GAP 10 (8-16); BILIRUBIN,TOTAL 0.4 mg/dL (0.2-1.0); CALCIUM 8.7 mg/dL (8.5-10.1); CO2 29 mmol/L (21-32); CREATININE 7.4 mg/dL (0.7-1.3); SGOT/AST 10 U/L (15-37); SGPT/ALT 22 U/L (12-78); TOT PROT 8.7 g/dl (6.4-8.2)
[2017-02-21 16:42] LABS: ALK PHOS 219 U/L (45-117); CPK 51 IU/L (39-308); TROPONIN I < 0.02 ng/ml (0.00-0.05)
[2017-02-21 16:49] LABS: GLUCOSE,RANDOM 452 mg/dL (74-106)
[2017-02-21] MEDS ORDERED: ONDANSETRON 4 MG/2 ML VIAL IVPB ONE (17:58)
[2017-02-21] MEDS ORDERED: PIPERACILLIN/TAZOB 3.375 GM 3.375 GM in DEXTROSE 5%-WATER - 50 ML IVPB ONE (18:38)
[2017-02-21] MEDS ORDERED: PIPERACILLIN/TAZOB 3.375 GM 50 ML IVPB ONE (18:42)
--- NOTE | 2017-02-21 19:21 | CONSULT ---
Consult Consult Specialty:: Surgery Referred by:: Magui Villa Reason for Consultation:: Abdominal pain - History of Present Illness Chief Complaint: C/O Abdominal pain x 3 days, in midabdomen. No nausea, no vomiting. History of Present Illness: C/O abdominal pain for 3 days., in midabdomen. - History Source History Provided By: Patient - Past Medical History Cardio/Vascular: Yes: CAD, HTN Renal/: Yes: Renal Failure, Hemodialysis Endocrine: Yes: Diabetes Mellitus - Past Surgical History Past Surgical History: Yes: AV Fistula/Graft - Alcohol/Substance Use Hx Alcohol Use: No - Smoking History Smoking history: Never smoked Have you smoked in the past 12 months: No Aproximately how many cigarettes per day: 0 - Social History Usual Living Arrangement: With Spouse Home Medications - Allergies Allergies/Adverse Reactions: Allergies Allergy/AdvReac Type Severity Reaction Status Date / Time No Known Drug Allergies Allergy Verified 02/21/17 13:42 - Home Medications Home Medications: Ambulatory Orders Aspirin 81 mg PO DAILY #0 tab.chew 01/07/13 Calcium Acetate [Phoslo -] 667 mg PO TIDCM 10/10/14 Esomeprazole Mag Trihydrate [Nexium] 40 mg PO DAILY 10/10/14 Metoprolol Tartrate [Lopressor -] 25 mg PO BID 10/10/14 Losartan Potassium [Cozaar -] 50 mg PO DAILY tablet 10/26/14 Amlodipine Besylate [Norvasc -] 10 mg PO DAILY tablet 06/14/16 Atorvastatin Ca [Lipitor] 10 mg PO HS #30 tablet 06/14/16 Insulin Glargine,Hum.rec.anlog [Lantus (10mL VIAL) -] 30 units SQ HS 07/05/16 Albuterol 0.083% Nebulizer Faviola [Ventolin 0.083% Nebulizer Soln -] 1 amp NEB Q4H PRN #0 amp 08/10/16 Oxycodone HCl [Roxicodone -] 5 mg PO Q4H PRN #15 tablet MDD 3 08/10/16 Zolpidem Tartrate [Ambien] 5 mg PO HS PRN #30 tablet MDD 1 08/10/16 Rivaroxaban [Xarelto -] 15 mg PO DAILY #30 tab 09/09/16 Insulin (Novolog 70/30) [Novolog Mix 70/30 Flexpen -] 30 units SQ BID 02/21/17 Physical Exam Vital Signs: Vital Signs Temperature 97.9 F 02/21/17 13:42 Pulse Rate 81 02/21/17 17:21 Respiratory Rate 17 02/21/17 17:21 Blood Pressure 175/89 02/21/17 17:21 O2 Sat by Pulse Oximetry (%) 98 02/21/17 17:21 Imaging - Results Cat Scan: Report Reviewed Ultrasound: Report Reviewed Problem List - Problems (1) Abdominal pain Code(s): R10.9 - UNSPECIFIED ABDOMINAL PAIN Qualifiers: Abdominal location: epigastric Qualified Code(s): R10.13 - Epigastric pain (2) ESRD (end stage renal disease) Code(s): N18.6 - END STAGE RENAL DISEASE (3) Diabetes Code(s): E11.9 - TYPE 2 DIABETES MELLITUS WITHOUT COMPLICATIONS Qualifiers: Diabetes mellitus type: type 2 Diabetes mellitus complication status: with unspecified complications (4) Abnormal findings on imaging of biliary tract Code(s): R93.2 - ABNORMAL FINDINGS ON DX IMAGING OF LIVER AND BILIARY TRACT Assessment/Plan R/O Cbd stone . Suggest MRCP. Amylase , lipase.
[2017-02-21 20:57] VITALS: BMI 30.9
[2017-02-21] MEDS ORDERED: ALBUTEROL SO4 0.083% IH SOL 2.5 MG/3 ML VIAL.NEB. NEB PRN (21:32)
[2017-02-21] MEDS ORDERED: ONDANSETRON 4 MG/2 ML VIAL IVPB PRN (21:34)
[2017-02-21] MEDS ORDERED: INSULIN DETEMIR 100 UNITS/ML MDV SQ SCH (22:00)
[2017-02-21] MEDS: METOPROLOL TARTRATE 25 MG TABLET (FP) PO SCH (22:05)
[2017-02-21] MEDS: INSULIN SLIDING SCALE (NOVOLOG) 1 VIAL SQ SCH (22:06)
[2017-02-21] MEDS: morphine CARPU-JECT 2 MG/1 ML DISP.SYRIN IVPUSH PRN (22:07)
[2017-02-22] MEDS: morphine CARPU-JECT 2 MG/1 ML DISP.SYRIN IVPUSH PRN ×2 (02:08→05:51)
[2017-02-22] MEDS: INSULIN SLIDING SCALE (NOVOLOG) 1 VIAL SQ SCH ×4 (06:08→21:25)
[2017-02-22] MEDS ORDERED: LEVOFLOXACIN 500 MG IVPB 100 ML IVPB ONE (07:00)
[2017-02-22] MEDS: CALCIUM ACETATE 667 MG CAPSULE (FP) PO SCH ×3 (09:09→17:08)
[2017-02-22] MEDS ORDERED: morphine CARPU-JECT 2 MG/1 ML DISP.SYRIN IM PRN (09:34)
--- NOTE | 2017-02-22 09:36 | HP ---
Admitting History and Physical - Primary Care Physician PCP: Singh Sandra - Admission Chief Complaint: abd pain History of Present Illness: ER HISTORY-- History of Present Illness Initial Comments: The patient is a 56 yo M with a PMHx significant for CAD x3 stents, DM, HTN, and ESRD (dialysis //Fri) who presents with diffuse abdominal pain worse in the epigastric region for 3 days. He also endorses vomiting for 2 days. He states he had dialysis yesterday. He notes a recent fall at his dialysis appointment where his L knee hit the floor. No head trauma or loc.No diarrhea. Last BM yesterday was normal. He denies hematochezia and melena. The patient denies hematuria, dysuria, urgency and frequency. He denies fevers, chills and cough. The patient notes his pain is mildly relieved by vomiting. The patient denies chest pain, palpitations, lightheadedness and SOB. He notes associated dry mouth and diaphoresis. Pt examined by me on the floors recent amputation of right third finger-- has extensive PVD severe pain in epigastric region-- about 4 days-- nausea+.no diarrhea or constipation History Source: Patient Limitations to Obtaining History: No Limitations - Past Medical History Cardiovascular: Yes: CAD, HTN Renal/: Yes: Renal Failure, Hemodialysis Heme/Onc: Yes: Anemia Endocrine: Yes: Diabetes Mellitus - Past Surgical History Past Surgical History: Yes: AV Fistula/Graft Additional Past Surgical History: rt third finger amputation - Smoking History Smoking history: Never smoked Have you smoked in the past 12 months: No Aproximately how many cigarettes per day: 0 - Alcohol/Substance Use Hx Alcohol Use: No Home Medications - Allergies Allergies/Adverse Reactions: Allergies Allergy/AdvReac Type Severity Reaction Status Date / Time No Known Drug Allergies Allergy Verified 02/21/17 13:42 - Home Medications Home Medications: Ambulatory Orders Aspirin 81 mg PO DAILY #0 tab.chew 01/07/13 Calcium Acetate [Phoslo -] 667 mg PO TIDCM 10/10/14 Esomeprazole Mag Trihydrate [Nexium] 40 mg PO DAILY 10/10/14 Metoprolol Tartrate [Lopressor -] 25 mg PO BID 10/10/14 Losartan Potassium [Cozaar -] 50 mg PO DAILY tablet 10/26/14 Amlodipine Besylate [Norvasc -] 10 mg PO DAILY tablet 06/14/16 Atorvastatin Ca [Lipitor] 10 mg PO HS #30 tablet 06/14/16 Insulin Glargine,Hum.rec.anlog [Lantus (10mL VIAL) -] 30 units SQ HS 07/05/16 Albuterol 0.083% Nebulizer Faviola [Ventolin 0.083% Nebulizer Soln -] 1 amp NEB Q4H PRN #0 amp 08/10/16 Oxycodone HCl [Roxicodone -] 5 mg PO Q4H PRN #15 tablet MDD 3 08/10/16 Zolpidem Tartrate [Ambien] 5 mg PO HS PRN #30 tablet MDD 1 08/10/16 Rivaroxaban [Xarelto -] 15 mg PO DAILY #30 tab 09/09/16 Insulin (Novolog 70/30) [Novolog Mix 70/30 Flexpen -] 30 units SQ BID 02/21/17 Review of Systems - Review of Systems Constitutional: denies: Chills, Fever, Loss of Appetite Gastrointestinal: reports: Abdominal Pain, Nausea. denies: Bloating, Constipation, Melena, Vomiting Physical Examination Vital Signs: Vital Signs Temperature 98.1 F 02/22/17 06:00 Pulse Rate 74 02/22/17 06:00 Respiratory Rate 20 02/22/17 06:00 Blood Pressure 169/80 02/22/17 06:00 O2 Sat by Pulse Oximetry (%) 98 02/22/17 00:39 Constitutional: Yes: No Distress, Calm Cardiovascular: Yes: Regular Rate and Rhythm Respiratory: Yes: Diminished Gastrointestinal: Yes: Normal Bowel Sounds, Soft, Abdomen, Obese, Tenderness, Epigastrium. No: Distention Edema: No Wound/Incision: Yes: Other (rt hand dressing in place) Psychiatric: Yes: Alert, Oriented Labs: Laboratory Last Values WBC 6.2 K/mm3 (4.0-10.0) 02/22/17 13:30 RBC 4.31 M/mm3 (4.00-5.60) 02/22/17 13:30 Hgb 11.5 GM/dL (11.7-16.9) L 02/22/17 13:30 Hct 36.2 % (35.4-49) 02/22/17 13:30 MCV 83.9 fl (80-96) 02/22/17 13:30 MCH 26.7 pg (25.7-33.7) 02/22/17 13:30 MCHC 31.9 g/dl (32.0-35.9) L 02/22/17 13:30 RDW 16.5 % (11.9-15.9) H 02/22/17 13:30 Plt Count 319 K/MM3 (134-434) 02/22/17 13:30 MPV 7.7 fl (7.5-11.1) 02/22/17 13:30 Neutrophils % 77.7 % (42.8-82.8) 02/21/17 14:08 Lymphocytes % 14.3 % (8-40) D 02/21/17 14:08 Monocytes % 7.6 % (3.8-10.2) 02/21/17 14:08 Eosinophils % 0.1 % (0-4.5) D 02/21/17 14:08 Basophils % 0.3 % (0-2.0) 02/21/17 14:08 INR 1.20 (0.82-1.09) H 02/21/17 14:58 Sodium 134 mmol/L (136-145) L 02/22/17 13:30 Potassium 4.9 mmol/L (3.5-5.1) 02/22/17 13:30 Chloride 90 mmol/L (98-107) L 02/22/17 13:30 Carbon Dioxide 29 mmol/L (21-32) 02/22/17 13:30 Anion Gap 15 (8-16) 02/22/17 13:30 BUN 63 mg/dL (7-18) H D 02/22/17 13:30 Creatinine 8.7 mg/dL (0.7-1.3) H* 02/22/17 13:30 Creat Clearance w eGFR 6.26 (>60) 02/22/17 13:30 POC Glucometer 166 UNITS (()) 02/22/17 12:00 Random Glucose 174 mg/dL (74-106) H D 02/22/17 13:30 Calcium 8.7 mg/dL (8.5-10.1) 02/22/17 13:30 Total Bilirubin 0.4 mg/dL (0.2-1.0) 02/22/17 13:30 AST 8 U/L (15-37) L 02/22/17 13:30 ALT 18 U/L (12-78) 02/22/17 13:30 Alkaline Phosphatase 187 U/L (45-117) H 02/22/17 13:30 Creatine Kinase 51 IU/L (39-308) 02/21/17 14:58 Troponin I < 0.02 ng/ml (0.00-0.05) 02/21/17 14:58 Total Protein 8.2 g/dl (6.4-8.2) 02/22/17 13:30 Albumin 3.0 g/dl (3.4-5.0) L 02/22/17 13:30 Total Amylase 54 U/L (25-115) 02/22/17 13:30 Lipase 138 U/L (73-393) 02/22/17 13:30 Imaging - Results Cat Scan: Report Reviewed Ultrasound: Report Reviewed EKG: Image Reviewed (NSR) Problem List - Problems (1) Abdominal pain Code(s): R10.9 - UNSPECIFIED ABDOMINAL PAIN Qualifiers: Abdominal location: epigastric Qualified Code(s): R10.13 - Epigastric pain (2) Abnormal findings on imaging of biliary tract Code(s): R93.2 - ABNORMAL FINDINGS ON DX IMAGING OF LIVER AND BILIARY TRACT (3) Diabetes Code(s): E11.9 - TYPE 2 DIABETES MELLITUS WITHOUT COMPLICATIONS Qualifiers: Diabetes mellitus type: type 2 Diabetes mellitus complication status: with unspecified complications (4) HTN (hypertension) Code(s): I10 - ESSENTIAL (PRIMARY) HYPERTENSION Qualifiers: Hypertension type: essential hypertension Qualified Code(s): I10 - Essential (primary) hypertension Assessment/Plan PLAN iv antibiotics Awaiting MRCP Surgical eval noted GI eval r/o CBD stone pain meds HD per Renal sono -- dilated intrahepatic ducts continue with meds
[2017-02-22] MEDS: ONDANSETRON *ODT* 4 MG TABLET SL PRN ×2 (09:58→18:35)
[2017-02-22] MEDS: METOPROLOL TARTRATE 25 MG TABLET (FP) PO SCH ×2 (09:58→21:25)
[2017-02-22] MEDS: amLODIPine BESYLATE 10 MG TABLET (FP) PO SCH (09:59)
[2017-02-22] MEDS: LOSARTAN POTASSIUM 50 MG TABLET (FP) PO SCH (09:59)
[2017-02-22] MEDS ORDERED: PANTOPRAZOLE 40 MG TABLET (FP) PO SCH (10:00)
[2017-02-22] MEDS ORDERED: ASPIRIN 81 MG CHEWABLE TABLETS PO SCH (10:00)
[2017-02-22] MEDS: morphine CARPU-JECT 2 MG/1 ML DISP.SYRIN IM PRN ×4 (10:07→20:33)
[2017-02-22] MEDS: RIVAROXABAN 15 MG TABLET PO SCH ×2 (10:09→19:03)
--- NOTE | 2017-02-22 11:25 | CON.GI ---
Consult Consult Specialty:: GI Referred by:: Dr Val Lowe - History of Present Illness History of Present Illness: 56 y/o male with PMH of diabetes, ESRD was admitted because of severe epigastric pain, nausea and vomiting despite receiving morphine. there is no fever nor leukocystosis. Gallbladder is enlarged associated with ?dilated intrahepatic duct by ultrasound not seen by catscan. Patient is awaiting MRCP . - Past Medical History Cardio/Vascular: Yes: CAD, HTN Renal/: Yes: Renal Failure, Hemodialysis Endocrine: Yes: Diabetes Mellitus - Past Surgical History Past Surgical History: Yes: AV Fistula/Graft - Alcohol/Substance Use Hx Alcohol Use: No - Smoking History Smoking history: Never smoked Have you smoked in the past 12 months: No Aproximately how many cigarettes per day: 0 - Social History Usual Living Arrangement: With Spouse Home Medications - Allergies Allergies/Adverse Reactions: Allergies Allergy/AdvReac Type Severity Reaction Status Date / Time No Known Drug Allergies Allergy Verified 02/21/17 13:42 - Home Medications Home Medications: Ambulatory Orders Aspirin 81 mg PO DAILY #0 tab.chew 01/07/13 Calcium Acetate [Phoslo -] 667 mg PO TIDCM 10/10/14 Esomeprazole Mag Trihydrate [Nexium] 40 mg PO DAILY 10/10/14 Metoprolol Tartrate [Lopressor -] 25 mg PO BID 10/10/14 Losartan Potassium [Cozaar -] 50 mg PO DAILY tablet 10/26/14 Amlodipine Besylate [Norvasc -] 10 mg PO DAILY tablet 06/14/16 Atorvastatin Ca [Lipitor] 10 mg PO HS #30 tablet 06/14/16 Insulin Glargine,Hum.rec.anlog [Lantus (10mL VIAL) -] 30 units SQ HS 07/05/16 Albuterol 0.083% Nebulizer Faviola [Ventolin 0.083% Nebulizer Soln -] 1 amp NEB Q4H PRN #0 amp 08/10/16 Oxycodone HCl [Roxicodone -] 5 mg PO Q4H PRN #15 tablet MDD 3 08/10/16 Zolpidem Tartrate [Ambien] 5 mg PO HS PRN #30 tablet MDD 1 08/10/16 Rivaroxaban [Xarelto -] 15 mg PO DAILY #30 tab 09/09/16 Insulin (Novolog 70/30) [Novolog Mix 70/30 Flexpen -] 30 units SQ BID 02/21/17 Review of Systems - Review of Systems Constitutional: denies: Fever HENT: denies: Difficult Swallowing Cardiovascular: denies: Chest Pain, Palpitations, Shortness of Breath Gastrointestinal: reports: Abdominal Pain (--epigastric pain), Nausea, Vomiting Physical Exam-GI Vital Signs: Vital Signs Temperature 98.1 F 02/22/17 06:00 Pulse Rate 74 02/22/17 06:00 Respiratory Rate 20 02/22/17 06:00 Blood Pressure 169/80 02/22/17 06:00 O2 Sat by Pulse Oximetry (%) 98 02/22/17 00:39 Constitutional: Yes: Well Nourished Eyes: Yes: Conjunctiva Clear Neck: Yes: Supple Cardiovascular: Yes: Regular Rate and Rhythm Respiratory: Yes: CTA Bilaterally Gastrointestinal Inspection: No: Distention ...Palpate: Yes: Soft, Tenderness, Epigastium. No: Firm/Rigid, Guarding, Hepatomegaly, Mass, Pulsatile Mass ...Percussion: Yes: Tympanitic Labs: INR, PTT INR 1.20 (0.82-1.09) H 02/21/17 14:58 CBCD WBC 5.8 K/mm3 (4.0-10.0) 02/21/17 14:08 RBC 4.38 M/mm3 (4.00-5.60) 02/21/17 14:08 Hgb 11.9 GM/dL (11.7-16.9) 02/21/17 14:08 Hct 37.2 % (35.4-49) 02/21/17 14:08 MCV 84.9 fl (80-96) 02/21/17 14:08 MCHC 31.9 g/dl (32.0-35.9) L 02/21/17 14:08 RDW 16.8 % (11.9-15.9) H 02/21/17 14:08 Plt Count 273 K/MM3 (134-434) 02/21/17 14:08 MPV 8.4 fl (7.5-11.1) 02/21/17 14:08 CMP Sodium 131 mmol/L (136-145) L 02/21/17 14:58 Potassium 5.2 mmol/L (3.5-5.1) H 02/21/17 14:58 Chloride 92 mmol/L (98-107) L 02/21/17 14:58 Carbon Dioxide 29 mmol/L (21-32) D 02/21/17 14:58 Anion Gap 10 (8-16) 02/21/17 14:58 BUN 51 mg/dL (7-18) H D 02/21/17 14:58 Creatinine 7.4 mg/dL (0.7-1.3) H 02/21/17 14:58 Creat Clearance w eGFR 7.65 (>60) 02/21/17 14:58 Calcium 8.7 mg/dL (8.5-10.1) 02/21/17 14:58 Total Bilirubin 0.4 mg/dL (0.2-1.0) D 02/21/17 14:58 AST 10 U/L (15-37) L D 02/21/17 14:58 ALT 22 U/L (12-78) 02/21/17 14:58 Alkaline Phosphatase 219 U/L (45-117) H D 02/21/17 14:58 Total Protein 8.7 g/dl (6.4-8.2) H 02/21/17 14:58 Albumin 3.4 g/dl (3.4-5.0) 02/21/17 14:58 Problem List - Problems (1) Epigastric pain Assessment/Plan: r/o peptic ulcer disease vs CBD stone vs acalculous cholecystitis, at present there is no evidence of mesenteric ischemia R> increase Protonix 40mg bid Reglan 5mg 30 min ac trial of clear liquids Code(s): R10.13 - EPIGASTRIC PAIN
[2017-02-22 14:22] LABS: MCH 26.7 pg (25.7-33.7); MCHC 31.9 g/dl (32.0-35.9); MEAN CELL VOLUME 83.9 fl (80-96); MEAN PLT VOLUME 7.7 fl (7.5-11.1); PLATELET COUNT 319 K/MM3 (134-434); RDW 16.5 % (11.9-15.9); WHITE BLOOD COUNT 6.2 K/mm3 (4.0-10.0)
--- NOTE | 2017-02-22 14:27 | PN ---
Progress Note, Physician - Current Medication List Current Medications: Active Medications Albuterol Sulfate (Ventolin 0.083% Nebulizer Soln -) 1 amp NEB Q4H PRN PRN Reason: SHORT OF BREATH/WHEEZING Amlodipine Besylate (Norvasc -) 10 mg PO DAILY [facility] Last Admin: 02/22/17 09:59 Dose: 10 mg Calcium Acetate (Phoslo -) 667 mg PO TIDCM [facility] Last Admin: 02/22/17 12:42 Dose: Not Given Insulin Aspart (Novolog Vial Sliding Scale -) 1 vial SQ ACHS [facility] PRN Reason: Protocol Last Admin: 02/22/17 12:41 Dose: 3 units Losartan Potassium (Cozaar -) 50 mg PO DAILY [facility] Last Admin: 02/22/17 09:59 Dose: 50 mg Metoclopramide HCl (Reglan -) 5 mg PO TIDAC [facility] Metoprolol Tartrate (Lopressor -) 25 mg PO BID [facility] Last Admin: 02/22/17 09:58 Dose: 25 mg Morphine Sulfate (Morphine Injection -) 2 mg IM Q3H PRN PRN Reason: PAIN Last Admin: 02/22/17 13:07 Dose: 2 mg Ondansetron HCl (Zofran Injection) 4 mg IVPB Q6H PRN PRN Reason: NAUSEA Ondansetron HCl (Zofran Odt -) 4 mg SL Q6H PRN PRN Reason: NAUSEA AND/OR VOMITING Last Admin: 02/22/17 09:58 Dose: 4 mg Oxycodone HCl (Roxicodone -) 5 mg PO Q4H PRN PRN Reason: PAIN Pantoprazole Sodium (Protonix -) 40 mg PO BID [facility] Rivaroxaban (Xarelto -) 15 mg PO DAILY [facility] Last Admin: 02/22/17 10:09 Dose: Not Given - Objective Vital Signs: Vital Signs Temperature 97.9 F 02/22/17 10:00 Pulse Rate 73 02/22/17 10:00 Respiratory Rate 18 02/22/17 10:00 Blood Pressure 181/74 02/22/17 10:00 O2 Sat by Pulse Oximetry (%) 98 02/22/17 09:00 Labs: CBC, BMP 02/22/17 13:30 INR, PTT INR 1.20 (0.82-1.09) H 02/21/17 14:58 Problem List - Problems (1) Abdominal pain Code(s): R10.9 - UNSPECIFIED ABDOMINAL PAIN Qualifiers: Abdominal location: epigastric Qualified Code(s): R10.13 - Epigastric pain (2) ESRD (end stage renal disease) Code(s): N18.6 - END STAGE RENAL DISEASE (3) Diabetes Code(s): E11.9 - TYPE 2 DIABETES MELLITUS WITHOUT COMPLICATIONS Qualifiers: Diabetes mellitus type: type 2 Diabetes mellitus complication status: with unspecified complications (4) Abnormal findings on imaging of biliary tract Code(s): R93.2 - ABNORMAL FINDINGS ON DX IMAGING OF LIVER AND BILIARY TRACT Assessment/Plan C/O Pain in subxiphoid region. Abdomen is soft , not tender , obese. Alkaline phosphatase is elevated. WBC is normal. ? Peptic ulcer disease, ? R?O Cbd calculus. MRCP. Hev is being dialysed.
[2017-02-22 15:20] LABS: AMYLASE 54 U/L (25-115); ANION GAP 15 (8-16); BILIRUBIN,TOTAL 0.4 mg/dL (0.2-1.0); CALCIUM 8.7 mg/dL (8.5-10.1); CO2 29 mmol/L (21-32); GLUCOSE,RANDOM 174 mg/dL (74-106); SGOT/AST 8 U/L (15-37); SGPT/ALT 18 U/L (12-78); TOT PROT 8.2 g/dl (6.4-8.2)
[2017-02-22 15:26] LABS: ALK PHOS 187 U/L (45-117)
[2017-02-22 15:28] LABS: CREATININE 8.7 mg/dL (0.7-1.3)
[2017-02-22] MEDS: METOCLOPRAMIDE HCL 10 MG TABLET (FP) PO SCH ×2 (17:05→18:35)
[2017-02-22] MEDS ORDERED: PT OWN MED DRAWER 7, Y5N ONE (19:02)
[2017-02-22] MEDS ORDERED: INSULIN (NOVOLOG) ASPART 100 UNITS/ML 10ML VIAL ONE (20:47)
[2017-02-22] MEDS ORDERED: INSULIN DETEMIR 100 UNITS/ML MDV SQ ONE (20:48)
[2017-02-22] MEDS: PANTOPRAZOLE 40 MG TABLET (FP) PO SCH (21:25)
--- NOTE | 2017-02-22 21:35 | CON.NEP ---
Consult Consult Specialty:: nephrology Referred by:: Medicine Reason for Consultation:: End stage renal disease - History of Present Illness Chief Complaint: Epigastric pain and vomiting History of Present Illness: 56 year old man with type 2 diabetes mellitus, hyperlipidemia and ESRD on maintenance hemodialysis three times a week at [facility]. Patient is now admitted with worsening epigastric pain for the past 1-2 days associated with vomiting of bloody material He reports no relief even after administration of morphine. - History Source History Provided By: Patient - Past Medical History Cardio/Vascular: Yes: CAD, HTN Renal/: Yes: Renal Failure, Hemodialysis Endocrine: Yes: Diabetes Mellitus - Past Surgical History Past Surgical History: Yes: AV Fistula/Graft - Alcohol/Substance Use Hx Alcohol Use: No - Smoking History Smoking history: Never smoked Have you smoked in the past 12 months: No Aproximately how many cigarettes per day: 0 - Social History Usual Living Arrangement: With Spouse Home Medications - Allergies Allergies/Adverse Reactions: Allergies Allergy/AdvReac Type Severity Reaction Status Date / Time No Known Drug Allergies Allergy Verified 02/21/17 13:42 - Home Medications Home Medications: Ambulatory Orders Aspirin 81 mg PO DAILY #0 tab.chew 01/07/13 Calcium Acetate [Phoslo -] 667 mg PO TIDCM 10/10/14 Esomeprazole Mag Trihydrate [Nexium] 40 mg PO DAILY 10/10/14 Metoprolol Tartrate [Lopressor -] 25 mg PO BID 10/10/14 Losartan Potassium [Cozaar -] 50 mg PO DAILY tablet 10/26/14 Amlodipine Besylate [Norvasc -] 10 mg PO DAILY tablet 06/14/16 Atorvastatin Ca [Lipitor] 10 mg PO HS #30 tablet 06/14/16 Insulin Glargine,Hum.rec.anlog [Lantus (10mL VIAL) -] 30 units SQ HS 07/05/16 Albuterol 0.083% Nebulizer Faviola [Ventolin 0.083% Nebulizer Soln -] 1 amp NEB Q4H PRN #0 amp 08/10/16 Oxycodone HCl [Roxicodone -] 5 mg PO Q4H PRN #15 tablet MDD 3 08/10/16 Zolpidem Tartrate [Ambien] 5 mg PO HS PRN #30 tablet MDD 1 02/11/17 Rivaroxaban [Xarelto -] 15 mg PO DAILY #30 tab 09/09/16 Insulin (Novolog 70/30) [Novolog Mix 70/30 Flexpen -] 30 units SQ BID 02/21/17 Review of Systems - Review of Systems Gastrointestinal: reports: Abdominal Pain, Nausea, Vomiting Nephrology Consult - Height Height: 5 ft 7 in - Weight Weight: 197 lb 6 oz - BMI Body Mass Index (BMI): 30.9 - Lab Results CBC,BMP: CBC, BMP 02/22/17 13:30 02/22/17 13:30 Anion Gap: Anion Gap Anion Gap 15 (8-16) 02/22/17 13:30 - Physical Examination Vital Signs: Vital Signs Temperature 97 F L 02/22/17 20:38 Pulse Rate 87 02/22/17 20:38 Respiratory Rate 20 02/22/17 20:38 Blood Pressure 160/87 02/22/17 20:38 O2 Sat by Pulse Oximetry (%) 98 02/22/17 09:00 Constitutional: Yes: Well Nourished, Mild Distress HENT: Yes: WNL Cardiovascular: Yes: Regular Rate and Rhythm Respiratory: Yes: Regular, CTA Bilaterally Gastrointestinal: Yes: Normal Bowel Sounds, Soft, Tenderness (palpable epigastric tenderness with no rebound) Access for Hemodialysis: AV Fistula (right arm AVF) Edema: RUE: Trace Peripheral Pulses WNL: Yes Psychiatric: Yes: Alert, Oriented Problem List - Problems (1) Abdominal pain Code(s): R10.9 - UNSPECIFIED ABDOMINAL PAIN Qualifiers: Abdominal location: epigastric Qualified Code(s): R10.13 - Epigastric pain (2) Diabetes Assessment/Plan: GI Evaluation is noted. Patient is pending MRCP. Code(s): E11.9 - TYPE 2 DIABETES MELLITUS WITHOUT COMPLICATIONS Qualifiers: Diabetes mellitus type: type 2 Diabetes mellitus complication status: with unspecified complications (3) ESRD (end stage renal disease) on dialysis Assessment/Plan: Patient was dialyzed today. Reports unsteady gait when he stood up. Will assist with bathroom privileges. Advised to avoid sleeping on the right arm. Code(s): N18.6 - END STAGE RENAL DISEASE Z99.2 - DEPENDENCE ON RENAL DIALYSIS
[2017-02-23] MEDS: morphine CARPU-JECT 2 MG/1 ML DISP.SYRIN IM PRN ×5 (00:57→22:00)
[2017-02-23] MEDS: INSULIN SLIDING SCALE (NOVOLOG) 1 VIAL SQ SCH ×4 (06:44→23:04)
[2017-02-23] MEDS: METOCLOPRAMIDE HCL 10 MG TABLET (FP) PO SCH ×3 (06:44→17:19)
[2017-02-23 08:19] LABS: ALBUMIN 3.3 g/dl (3.4-5.0); ALK PHOS 178 U/L (45-117); ANION GAP 15 (8-16); BILIRUBIN,TOTAL 0.5 mg/dL (0.2-1.0); CALCIUM 8.4 mg/dL (8.5-10.1); CO2 30 mmol/L (21-32); CREATININE 6.1 mg/dL (0.7-1.3); GLUCOSE,RANDOM 273 mg/dL (74-106); SGOT/AST 8 U/L (15-37); SGPT/ALT 18 U/L (12-78); TOT PROT 8.3 g/dl (6.4-8.2)
[2017-02-23] MEDS: CALCIUM ACETATE 667 MG CAPSULE (FP) PO SCH ×3 (09:28→18:08)
[2017-02-23] MEDS: LOSARTAN POTASSIUM 50 MG TABLET (FP) PO SCH (09:28)
[2017-02-23] MEDS: METOPROLOL TARTRATE 25 MG TABLET (FP) PO SCH ×2 (09:28→23:00)
[2017-02-23] MEDS: PANTOPRAZOLE 40 MG TABLET (FP) PO SCH ×2 (09:28→23:00)
[2017-02-23] MEDS: amLODIPine BESYLATE 10 MG TABLET (FP) PO SCH (09:28)
[2017-02-23] MEDS: RIVAROXABAN 15 MG TABLET PO SCH (09:30)
[2017-02-23] MEDS ORDERED: PT OWN MED DRAWER 7, Y5N ONE (09:30)
--- NOTE | 2017-02-23 10:01 | PN ---
Progress Note, Physician Chief Complaint: sleeping comfortably when I entered his room but when he awoke c/o severe pain in stomach no bm says he feels nauseous - Current Medication List Current Medications: Active Medications Albuterol Sulfate (Ventolin 0.083% Nebulizer Soln -) 1 amp NEB Q4H PRN PRN Reason: SHORT OF BREATH/WHEEZING Amlodipine Besylate (Norvasc -) 10 mg PO DAILY [facility] Last Admin: 02/23/17 09:28 Dose: 10 mg Calcium Acetate (Phoslo -) 667 mg PO TIDCM [facility] Last Admin: 02/23/17 09:28 Dose: 667 mg Levofloxacin (Levaquin 250 Mg Premixed Ivpb -) 50 mls @ 50 mls/hr IVPB Q2D@ 1000 [facility] Insulin Aspart (Novolog Vial Sliding Scale -) 1 vial SQ ACHS [facility] PRN Reason: Protocol Last Admin: 02/23/17 06:44 Dose: 7 units Losartan Potassium (Cozaar -) 50 mg PO DAILY [facility] Last Admin: 02/23/17 09:28 Dose: 50 mg Metoclopramide HCl (Reglan -) 5 mg PO TIDAC [facility] Last Admin: 02/23/17 06:44 Dose: 5 mg Metoprolol Tartrate (Lopressor -) 25 mg PO BID [facility] Last Admin: 02/23/17 09:28 Dose: 25 mg Morphine Sulfate (Morphine Injection -) 2 mg IM Q3H PRN PRN Reason: PAIN Last Admin: 02/23/17 09:27 Dose: 2 mg Ondansetron HCl (Zofran Injection) 4 mg IVPB Q6H PRN PRN Reason: NAUSEA Ondansetron HCl (Zofran Odt -) 4 mg SL Q6H PRN PRN Reason: NAUSEA AND/OR VOMITING Last Admin: 02/22/17 18:35 Dose: 4 mg Oxycodone HCl (Roxicodone -) 5 mg PO Q4H PRN PRN Reason: PAIN Pantoprazole Sodium (Protonix -) 40 mg PO BID [facility] Last Admin: 02/23/17 09:28 Dose: 40 mg Rivaroxaban (Xarelto -) 15 mg PO DAILY [facility] Last Admin: 02/23/17 09:30 Dose: 15 mg - Objective Vital Signs: Vital Signs Temperature 97.9 F 02/23/17 06:00 Pulse Rate 80 08/27/17 06:00 Respiratory Rate 20 02/23/17 06:00 Blood Pressure 126/66 02/23/17 06:00 O2 Sat by Pulse Oximetry (%) 98 02/22/17 21:00 Constitutional: Yes: Anxious Cardiovascular: Yes: Regular Rate and Rhythm Respiratory: Yes: CTA Bilaterally Gastrointestinal: Yes: Normal Bowel Sounds, Soft, Tenderness, Epigastrium. No: Hepatomegaly Edema: No Labs: CBC, BMP 02/22/17 13:30 02/23/17 06:30 INR, PTT INR 1.20 (0.82-1.09) H 02/21/17 14:58 Problem List - Problems (1) Abdominal pain Code(s): R10.9 - UNSPECIFIED ABDOMINAL PAIN Qualifiers: Abdominal location: epigastric Qualified Code(s): R10.13 - Epigastric pain (2) Abnormal findings on imaging of biliary tract Code(s): R93.2 - ABNORMAL FINDINGS ON DX IMAGING OF LIVER AND BILIARY TRACT (3) Diabetes Code(s): E11.9 - TYPE 2 DIABETES MELLITUS WITHOUT COMPLICATIONS Qualifiers: Diabetes mellitus type: type 2 Diabetes mellitus complication status: with unspecified complications (4) HTN (hypertension) Code(s): I10 - ESSENTIAL (PRIMARY) HYPERTENSION Qualifiers: Hypertension type: essential hypertension Qualified Code(s): I10 - Essential (primary) hypertension (5) Gastritis Code(s): K29.70 - GASTRITIS, UNSPECIFIED, WITHOUT BLEEDING (6) Gastroparesis Code(s): K31.84 - GASTROPARESIS Assessment/Plan PLAN dc iv antibiotics MRCP noted-- no evidence of choledocholithiasis Surgical eval noted GI eval noted ?drug seeking-- will dc Morphine as pt requesting me to increase the dose oral pain meds advance diet likely pain from gastritis /gastroparesis HD per Renal continue with meds he has pancreatic cysts in MRCP-- will need to follow up as outpt
--- NOTE | 2017-02-23 12:14 | PN ---
Progress Note, Physician History of Present Illness: Patient is sleeping comfortably, but when he is awake C/O epigastric abdominal pain. Abdomen is soft , not tender. He is obese. Blood work is normal. Alkaline phosphatase remains elevated. MRCP is not done yet. Continue current management. Resume feeding - Current Medication List Current Medications: Active Medications Albuterol Sulfate (Ventolin 0.083% Nebulizer Soln -) 1 amp NEB Q4H PRN PRN Reason: SHORT OF BREATH/WHEEZING Amlodipine Besylate (Norvasc -) 10 mg PO DAILY [facility] Last Admin: 02/23/17 09:28 Dose: 10 mg Calcium Acetate (Phoslo -) 667 mg PO TIDCM [facility] Last Admin: 02/23/17 09:28 Dose: 667 mg Insulin Aspart (Novolog Vial Sliding Scale -) 1 vial SQ ACHS [facility] PRN Reason: Protocol Last Admin: 02/23/17 06:44 Dose: 7 units Losartan Potassium (Cozaar -) 50 mg PO DAILY [facility] Last Admin: 02/23/17 09:28 Dose: 50 mg Metoclopramide HCl (Reglan -) 5 mg PO TIDAC [facility] Last Admin: 02/23/17 06:44 Dose: 5 mg Metoprolol Tartrate (Lopressor -) 25 mg PO BID [facility] Last Admin: 02/23/17 09:28 Dose: 25 mg Morphine Sulfate (Morphine Injection -) 1 mg IM Q4H PRN PRN Reason: PAIN Ondansetron HCl (Zofran Injection) 4 mg IVPB Q6H PRN PRN Reason: NAUSEA Ondansetron HCl (Zofran Odt -) 4 mg SL Q6H PRN PRN Reason: NAUSEA AND/OR VOMITING Last Admin: 02/22/17 18:35 Dose: 4 mg Oxycodone HCl (Roxicodone -) 5 mg PO Q4H PRN PRN Reason: PAIN Pantoprazole Sodium (Protonix -) 40 mg PO BID [facility] Last Admin: 02/23/17 09:28 Dose: 40 mg Rivaroxaban (Xarelto -) 15 mg PO DAILY [facility] Last Admin: 02/23/17 09:30 Dose: 15 mg - Objective Vital Signs: Vital Signs Temperature 97.9 F 02/23/17 06:00 Pulse Rate 80 02/23/17 06:00 Respiratory Rate 20 02/23/17 06:00 Blood Pressure 126/66 02/23/17 06:00 O2 Sat by Pulse Oximetry (%) 98 02/22/17 21:00 Gastrointestinal: Yes: Soft, Abdomen, Obese Labs: CBC, BMP 02/22/17 13:30 02/23/17 06:30 INR, PTT INR 1.20 (0.82-1.09) H 02/21/17 14:58 Problem List - Problems (1) Abdominal pain Code(s): R10.9 - UNSPECIFIED ABDOMINAL PAIN Qualifiers: Abdominal location: epigastric Qualified Code(s): R10.13 - Epigastric pain (2) ESRD (end stage renal disease) Code(s): N18.6 - END STAGE RENAL DISEASE (3) Diabetes Code(s): E11.9 - TYPE 2 DIABETES MELLITUS WITHOUT COMPLICATIONS Qualifiers: Diabetes mellitus type: type 2 Diabetes mellitus complication status: with unspecified complications (4) Abnormal findings on imaging of biliary tract Code(s): R93.2 - ABNORMAL FINDINGS ON DX IMAGING OF LIVER AND BILIARY TRACT Assessment/Plan Abdominal pain . Obesity, Elevated alkaline phosphatase, Injury to righthand, Diabetes mellitus, uncontrolled, Renal failure.. Wait for MRCP. G.I. management , ? upper endoscopy.
[2017-02-23] MEDS: oxyCODONE HCL 5 MG TABLET PO PRN (13:04)
[2017-02-23] MEDS: SUCRALFATE 1 GM/10 ML UNIT DOSE CUPS PO SCH ×2 (19:36→22:59)
--- NOTE | 2017-02-23 20:25 | PN ---
Progress Note (short form) - Note Progress Note: Patient apears comfortable but continues to reports "strong" epigastric pain. He reports no episode of vomiting today Vitals : Vital Signs (72 hours) 02/21/17 02/21/17 02/21/17 13:42 17:21 19:40 Temperature 97.9 F 97.8 F Pulse Rate 89 Pulse Rate [ 81 77 Apical] Respiratory 19 17 18 Rate Blood Pressure 157/94 Blood Pressure 175/89 184/88 [Left Arm] O2 Sat by Pulse 100 98 98 Oximetry (%) 02/21/17 02/21/17 02/22/17 20:48 21:00 00:39 Temperature 97.6 F Pulse Rate 77 Pulse Rate [ Apical] Respiratory 20 20 20 Rate Blood Pressure 182/83 Blood Pressure [Left Arm] O2 Sat by Pulse 98 98 Oximetry (%) 02/22/17 02/22/17 02/22/17 06:00 09:00 10:00 Temperature 98.1 F 97.9 F Pulse Rate 74 73 Pulse Rate [ Apical] Respiratory 20 20 18 Rate Blood Pressure 169/80 181/74 Blood Pressure [Left Arm] O2 Sat by Pulse 98 Oximetry (%) 02/22/17 02/22/17 02/22/17 13:20 13:30 14:00 Temperature Pulse Rate 75 71 72 Pulse Rate [ Apical] Respiratory 18 18 18 Rate Blood Pressure 187/74 173/73 138/79 Blood Pressure [Left Arm] O2 Sat by Pulse Oximetry (%) 02/22/17 02/22/17 02/22/17 14:30 15:00 15:30 Temperature Pulse Rate 75 79 78 Pulse Rate [ Apical] Respiratory 18 18 18 Rate Blood Pressure 148/75 157/80 119/66 Blood Pressure [Left Arm] O2 Sat by Pulse Oximetry (%) 02/22/17 02/22/17 02/22/17 16:00 16:30 17:00 Temperature Pulse Rate 75 79 80 Pulse Rate [ Apical] Respiratory 18 18 18 Rate Blood Pressure 133/66 120/47 141/63 Blood Pressure [Left Arm] O2 Sat by Pulse Oximetry (%) 02/22/17 02/22/17 02/22/17 17:20 18:00 20:38 Temperature 97.8 F 97 F L Pulse Rate 78 80 87 Pulse Rate [ Apical] Respiratory 18 18 20 Rate Blood Pressure 170/83 152/77 160/87 Blood Pressure [Left Arm] O2 Sat by Pulse Oximetry (%) 02/22/17 02/23/17 02/23/17 21:00 06:00 09:00 Temperature 97.9 F Pulse Rate 80 Pulse Rate [ Apical] Respiratory 20 20 20 Rate Blood Pressure 126/66 Blood Pressure [Left Arm] O2 Sat by Pulse 98 100 Oximetry (%) 02/23/17 02/23/17 16:01 17:39 Temperature 98.0 F 97.7 F Pulse Rate 77 77 Pulse Rate [ Apical] Respiratory 20 20 Rate Blood Pressure 114/72 132/71 Blood Pressure [Left Arm] O2 Sat by Pulse Oximetry (%) Lungs: clear Heart: s1 s2 regular Abd: Full, soft, tenderness to deep palpation, bs normal Ext: Trace edema Access; positive bruit right arm AVF Dressing over the right hand. Labs Laboratory Tests 02/21/17 02/21/17 02/21/17 14:08 14:08 14:58 WBC 5.8 RBC 4.38 Hgb 11.9 Hct 37.2 MCV 84.9 MCH 27.0 MCHC 31.9 L RDW 16.8 H Plt Count 273 MPV 8.4 Neutrophils % 77.7 Lymphocytes % 14.3 D Monocytes % 7.6 Eosinophils % 0.1 D Basophils % 0.3 INR 1.20 H Sodium Cancelled Potassium Cancelled Chloride Cancelled Carbon Dioxide Cancelled Anion Gap Cancelled BUN Cancelled Creatinine Cancelled Creat Clearance w eGFR Cancelled POC Glucometer Random Glucose Cancelled Calcium Cancelled Total Bilirubin Cancelled AST Cancelled ALT Cancelled Alkaline Phosphatase Cancelled Creatine Kinase Troponin I Total Protein Cancelled Albumin Cancelled Total Amylase Cancelled Lipase Cancelled Hepatitis C Antibody 02/21/17 02/21/17 02/22/17 14:58 22:00 06:07 WBC RBC Hgb Hct MCV MCH MCHC RDW Plt Count MPV Neutrophils % Lymphocytes % Monocytes % Eosinophils % Basophils % INR Sodium 131 L Potassium 5.2 H Chloride 92 L Carbon Dioxide 29 D Anion Gap 10 BUN 51 H D Creatinine 7.4 H Creat Clearance w eGFR 7.65 POC Glucometer 379 134 Random Glucose 452 H* D Calcium 8.7 Total Bilirubin 0.4 D AST 10 L D ALT 22 Alkaline Phosphatase 219 H D Creatine Kinase 51 Troponin I < 0.02 Total Protein 8.7 H Albumin 3.4 Total Amylase 48 Lipase 267 Hepatitis C Antibody 02/22/17 02/22/17 02/22/17 12:00 13:30 13:30 WBC 6.2 RBC 4.31 Hgb 11.5 L Hct 36.2 MCV 83.9 MCH 26.7 MCHC 31.9 L RDW 16.5 H Plt Count 319 MPV 7.7 Neutrophils % Lymphocytes % Monocytes % Eosinophils % Basophils % INR Sodium 134 L Potassium 4.9 Chloride 90 L Carbon Dioxide 29 Anion Gap 15 BUN 63 H D Creatinine 8.7 H* Creat Clearance w eGFR 6.26 POC Glucometer 166 Random Glucose 174 H D Calcium 8.7 Total Bilirubin 0.4 AST 8 L ALT 18 Alkaline Phosphatase 187 H Creatine Kinase Troponin I Total Protein 8.2 Albumin 3.0 L Total Amylase 54 Lipase 138 Hepatitis C Antibody 02/22/17 02/22/17 02/23/17 13:30 20:51 05:10 WBC RBC Hgb Hct MCV MCH MCHC RDW Plt Count MPV Neutrophils % Lymphocytes % Monocytes % Eosinophils % Basophils % INR Sodium Potassium Chloride Carbon Dioxide Anion Gap BUN Creatinine Creat Clearance w eGFR POC Glucometer 210 286 Random Glucose Calcium Total Bilirubin AST ALT Alkaline Phosphatase Creatine Kinase Troponin I Total Protein Albumin Total Amylase Lipase Hepatitis C Antibody Cancelled 02/23/17 02/23/17 02/23/17 06:30 12:32 17:20 WBC RBC Hgb Hct MCV MCH MCHC RDW Plt Count MPV Neutrophils % Lymphocytes % Monocytes % Eosinophils % Basophils % INR Sodium 135 L Potassium 4.4 Chloride 90 L Carbon Dioxide 30 Anion Gap 15 BUN 38 H D Creatinine 6.1 H D Creat Clearance w eGFR 9.56 POC Glucometer 257 215 Random Glucose 273 H D Calcium 8.4 L Total Bilirubin 0.5 D AST 8 L ALT 18 Alkaline Phosphatase 178 H Creatine Kinase Troponin I Total Protein 8.3 H Albumin 3.3 L Total Amylase Lipase Hepatitis C Antibody A/P: 56 year old man with end stage renal disease admitted with epigastric pain / acute gallbladder disease. Tentatively scheduled for EGD tomorrow. Problem List - Problems (1) Abdominal pain Code(s): R10.9 - UNSPECIFIED ABDOMINAL PAIN Qualifiers: Abdominal location: epigastric Qualified Code(s): R10.13 - Epigastric pain (2) Diabetes Code(s): E11.9 - TYPE 2 DIABETES MELLITUS WITHOUT COMPLICATIONS Qualifiers: Diabetes mellitus type: type 2 Diabetes mellitus complication status: with unspecified complications (3) ESRD (end stage renal disease) on dialysis Code(s): N18.6 - END STAGE RENAL DISEASE Z99.2 - DEPENDENCE ON RENAL DIALYSIS
--- NOTE | 2017-02-23 21:34 | EKG ---
Test Reason : Blood Pressure : / mmHG Vent. Rate : 075 BPM Atrial Rate : 075 BPM P-R Int : 152 ms QRS Dur : 086 ms QT Int : 408 ms P-R-T Axes : -08 -50 093 degrees QTc Int : 455 ms NORMAL SINUS RHYTHM LEFT AXIS DEVIATION SEPTAL INFARCT (CITED ON OR BEFORE 12-JUN-2016) NONSPECIFIC T WAVE ABNORMALITY ABNORMAL ECG WHEN COMPARED WITH ECG OF 09-SEP-2016 18:06, NO SIGNIFICANT CHANGE WAS FOUND Confirmed by ZACHARY FIELDS MD ([id number]) on 02/23/2017 9:34:31 PM Referred By: Confirmed By:ZACHARY FIELDS MD
[2017-02-24] MEDS: morphine CARPU-JECT 2 MG/1 ML DISP.SYRIN IM PRN (03:18)
[2017-02-24] MEDS: METOCLOPRAMIDE HCL 10 MG TABLET (FP) PO SCH ×3 (06:29→17:45)
[2017-02-24] MEDS: INSULIN SLIDING SCALE (NOVOLOG) 1 VIAL SQ SCH ×4 (06:29→22:07)
--- NOTE | 2017-02-24 08:35 | PN ---
Progress Note (short form) - Note Progress Note: ADDENDUM: S/P EGD. FELICIANO ESOPHAGITIS (MILD) OTHERWISE NEGATIVE EGD WITH NO SOURCE OF PAIN FOUND. REC: FOLLOW LIPASE, LFT'S CHECK LACTIC ACID AND CA19-9 R/O INTERNAL HERNIA SURGERY ON BOARD
[2017-02-24] MEDS: CALCIUM ACETATE 667 MG CAPSULE (FP) PO SCH ×4 (08:57→17:45)
[2017-02-24] MEDS ORDERED: PT OWN MED DRAWER 7, Y5N ONE ×2 (09:39→17:49)
[2017-02-24] MEDS ORDERED: HYDROmorphone HCL CARPU-JECT 2 MG/1 ML DISP.SYRIN IM PRN (09:41)
--- NOTE | 2017-02-24 09:41 | PN ---
Progress Note (short form) - Note Progress Note: pt seen/ examined c/c- pain in belly - wants me to increase meds denies cp. all f/u noted afebrile Vital Signs Temp 98.1 F 02/24/17 08:32 Pulse 75 02/24/17 09:05 Resp 18 02/24/17 09:05 BP 160/60 02/24/17 09:05 Pulse Ox 96 02/24/17 09:05 Intake & Output 02/23/17 02/23/17 02/24/17 11:59 23:59 11:59 Intake Total 720 300 Balance 720 300 Intake: IV 300 Oral 720 Other: # Unmeasured Voids Void 2 2 2 Active Medications Albuterol Sulfate (Ventolin 0.083% Nebulizer Soln -) 1 amp NEB Q4H PRN PRN Reason: SHORT OF BREATH/WHEEZING Amlodipine Besylate (Norvasc -) 10 mg PO DAILY [facility] Last Admin: 02/23/17 09:28 Dose: 10 mg Calcium Acetate (Phoslo -) 667 mg PO TIDCM [facility] Last Admin: 02/24/17 08:57 Dose: Not Given Fluconazole (Diflucan 40mg/Ml Suspension -) 100 mg PO DAILY [facility] Insulin Aspart (Novolog Vial Sliding Scale -) 1 vial SQ ACHS [facility] PRN Reason: Protocol Last Admin: 02/24/17 06:29 Dose: 7 units Losartan Potassium (Cozaar -) 50 mg PO DAILY [facility] Last Admin: 02/23/17 09:28 Dose: 50 mg Metoclopramide HCl (Reglan -) 5 mg PO TIDAC [facility] Last Admin: 02/24/17 06:29 Dose: Not Given Metoprolol Tartrate (Lopressor -) 25 mg PO BID [facility] Last Admin: 02/23/17 23:00 Dose: 25 mg Morphine Sulfate (Morphine Injection -) 1 mg IM Q4H PRN PRN Reason: PAIN Last Admin: 02/24/17 03:18 Dose: 1 mg Oxycodone HCl (Roxicodone -) 5 mg PO Q4H PRN PRN Reason: PAIN Last Admin: 02/23/17 13:04 Dose: 5 mg Pantoprazole Sodium (Protonix -) 40 mg PO BID [facility] Last Admin: 02/23/17 23:00 Dose: 40 mg Rivaroxaban (Xarelto -) 15 mg PO DAILY [facility] Last Admin: 02/23/17 09:30 Dose: 15 mg Sucralfate (Carafate Oral Suspension -) 1 gm PO QID [facility] Last Admin: 02/23/17 22:59 Dose: 1 gm CBC, BMP 02/22/17 13:30 02/23/17 06:30 Physical Examination Constitutional: Yes: No Distress but appears in pain Cardiovascular: Yes: Regular Rate and Rhythm Respiratory: Yes: Diminished Gastrointestinal: Yes: Normal Bowel Sounds, Soft, Abdomen, Obese, Tenderness, Epigastrium. No: Distention Edema: No Wound/Incision: Yes: Other (rt hand dressing in place) Psychiatric: Yes: Alert, Oriented. Imaging - Results Cat Scan: Report Reviewed Ultrasound: Report Reviewed EKG: Image Reviewed (NSR) Problem List - Problems (1) Abdominal pain Code(s): R10.9 - UNSPECIFIED ABDOMINAL PAIN Qualifiers: Abdominal location: epigastric Qualified Code(s): R10.13 - Epigastric pain (2) Abnormal findings on imaging of biliary tract Code(s): R93.2 - ABNORMAL FINDINGS ON DX IMAGING OF LIVER AND BILIARY TRACT (3) Diabetes Code(s): E11.9 - TYPE 2 DIABETES MELLITUS WITHOUT COMPLICATIONS Qualifiers: Diabetes mellitus type: type 2 Diabetes mellitus complication status: with unspecified complications (4) HTN (hypertension) Code(s): I10 - ESSENTIAL (PRIMARY) HYPERTENSION Qualifiers: Hypertension type: essential hypertension Qualified Code(s): I10 - Essential (primary) hypertension Assessment/Plan pt continue to have pain Discussed with Dr. Lloyd / Dr. Fagan will change to Radhaaudid for now continue other meds will follow [facility] ? gi to follow
--- NOTE | 2017-02-24 09:53 | PN ---
Progress Note (short form) - Note Progress Note: RENAL DIALYZED SAT 2 KG REMOVED ADMITTED WITH EPIGASTRIC PAIN STARTED THURS AFTER HE ATE FRIED FISH /VOMITING ETC NOW LEFT WITH THE SEVERE PAIN EGD FELICIANO ESOPHAGITIS NO GALLSTONES HAS A FEW PANCREATIC CYSTS DOUBT ANY OF THE ABOVE ARE THE CAUSE WILL SWITCH MORPHINE TO DILAUDID CONTINUE COLACE/MIRALX TO AVOID CONSTIPATION CANT DC HOME YET HD IN AM CASE D/W DR BURNETTE AND DR DASILVA
[2017-02-24] MEDS ORDERED: LEVOFLOXACIN 250 MG IVPB 50 ML IVPB SCH (10:00)
[2017-02-24] MEDS: amLODIPine BESYLATE 10 MG TABLET (FP) PO SCH (10:08)
[2017-02-24] MEDS: PANTOPRAZOLE 40 MG TABLET (FP) PO SCH ×2 (10:08→22:07)
[2017-02-24] MEDS: LOSARTAN POTASSIUM 50 MG TABLET (FP) PO SCH (10:09)
[2017-02-24] MEDS: RIVAROXABAN 15 MG TABLET PO SCH (10:09)
[2017-02-24] MEDS: SUCRALFATE 1 GM/10 ML UNIT DOSE CUPS PO SCH ×4 (10:09→22:07)
[2017-02-24] MEDS: METOPROLOL TARTRATE 25 MG TABLET (FP) PO SCH ×2 (10:09→22:07)
[2017-02-24 10:49] LABS: BASOPHIL 0.4 % (0-2.0); EOSINOPHIL 0.7 % (0-4.5); MCHC 32.4 g/dl (32.0-35.9); MEAN CELL VOLUME 83.4 fl (80-96); MEAN PLT VOLUME 7.5 fl (7.5-11.1); NEUTROPHILS 57.4 % (42.8-82.8); PLATELET COUNT 299 K/MM3 (134-434); RDW 16.4 % (11.9-15.9); WHITE BLOOD COUNT 6.1 K/mm3 (4.0-10.0)
[2017-02-24 11:18] LABS: ALBUMIN 3.3 g/dl (3.4-5.0); BILIRUBIN,DIRECT 0.2 mg/dL (0.0-0.2); BILIRUBIN,TOTAL 0.5 mg/dL (0.2-1.0); TOT PROT 8.2 g/dl (6.4-8.2)
[2017-02-24] MEDS: FLUCONAZOLE 40 MG/ML SUSPENSION 35 ML BOTTLE PO SCH (13:35)
[2017-02-24] MEDS: oxyCODONE HCL 5 MG TABLET PO PRN ×2 (15:54→22:08)
[2017-02-25] MEDS: oxyCODONE HCL 5 MG TABLET PO PRN (04:49)
[2017-02-25] MEDS: INSULIN SLIDING SCALE (NOVOLOG) 1 VIAL SQ SCH ×2 (06:34→11:11)
[2017-02-25] MEDS: METOCLOPRAMIDE HCL 10 MG TABLET (FP) PO SCH ×2 (06:34→11:11)
[2017-02-25] MEDS: CALCIUM ACETATE 667 MG CAPSULE (FP) PO SCH ×2 (08:15→12:52)
--- NOTE | 2017-02-25 10:51 | DS ---
Physical Examination Vital Signs: Vital Signs Temperature 98 F 02/25/17 07:55 Pulse Rate 69 02/25/17 10:30 Respiratory Rate 18 02/25/17 10:30 Blood Pressure 99/58 02/25/17 10:30 O2 Sat by Pulse Oximetry (%) 96 02/25/17 01:28 Constitutional: Yes: Calm Cardiovascular: Yes: Regular Rate and Rhythm Respiratory: Yes: Diminished Gastrointestinal: Yes: Normal Bowel Sounds, Soft. No: Distention, Tenderness, Tenderness, Epigastrium Edema: No Labs: CBC, BMP 02/24/17 10:10 02/23/17 06:30 Discharge Summary Reason For Visit: CHOLELITHIASIS Current Active Problems Abdominal pain (Acute) Abnormal findings on imaging of biliary tract (Acute) Cholelithiasis (Acute) ESRD (end stage renal disease) (Acute) Epigastric pain (Acute) Gastritis (Acute) Gastroparesis (Acute) Hospital Course: Admitted for intractable pain CT abd--possible dilated intrabiliary ducts MRCP-- negative for choledocholithiasis Pt was seen by GI, surgery and Renal HD per renal EGD done afterwards-- candidial esophagitis- started on Diflucan Pt tolerating diet today received last pain meds last night underwent HD today pt stable for dc home pt has appt tomorrow with Dr sanders [facility] for right hand Condition: Fair - Instructions Referrals: Singh Sandra MD [Primary Care Provider] - Disposition: HOME - Home Medications Comprehensive Discharge Medication List: Ambulatory Orders Aspirin 81 mg PO DAILY #0 tab.chew 01/07/13 Calcium Acetate [Phoslo -] 667 mg PO TIDCM 10/10/14 Esomeprazole Mag Trihydrate [Nexium] 40 mg PO DAILY 10/10/14 Metoprolol Tartrate [Lopressor -] 25 mg PO BID 10/10/14 Losartan Potassium [Cozaar -] 50 mg PO DAILY tablet 10/26/14 Amlodipine Besylate [Norvasc -] 10 mg PO DAILY tablet 06/14/16 Atorvastatin Ca [Lipitor] 10 mg PO HS #30 tablet 06/14/16 Insulin Glargine,Hum.rec.anlog [Lantus (10mL VIAL) -] 30 units SQ HS 07/05/16 Albuterol 0.083% Nebulizer Faviola [Ventolin 0.083% Nebulizer Soln -] 1 amp NEB Q4H PRN #0 amp 08/10/16 Oxycodone HCl [Roxicodone -] 5 mg PO Q4H PRN #15 tablet MDD 3 08/10/16 Zolpidem Tartrate [Ambien] 5 mg PO HS PRN #30 tablet MDD 1 08/10/16 Rivaroxaban [Xarelto -] 15 mg PO DAILY #30 tab 09/09/16 Insulin (Novolog 70/30) [Novolog Mix 70/30 Flexpen -] 30 units SQ BID 02/21/17
[2017-02-25] MEDS: SUCRALFATE 1 GM/10 ML UNIT DOSE CUPS PO SCH ×2 (11:09→12:52)
[2017-02-25] MEDS: PANTOPRAZOLE 40 MG TABLET (FP) PO SCH ×2 (11:10→12:52)
[2017-02-25] MEDS: amLODIPine BESYLATE 10 MG TABLET (FP) PO SCH ×2 (11:10→12:52)
[2017-02-25] MEDS: LOSARTAN POTASSIUM 50 MG TABLET (FP) PO SCH ×2 (11:10→12:52)
[2017-02-25] MEDS: FLUCONAZOLE 40 MG/ML SUSPENSION 35 ML BOTTLE PO SCH ×2 (11:10→12:53)
[2017-02-25] MEDS: METOPROLOL TARTRATE 25 MG TABLET (FP) PO SCH (11:10)
[2017-02-25] MEDS: RIVAROXABAN 15 MG TABLET PO SCH ×2 (11:11→12:53)
[2017-02-25] MEDS ORDERED: INSULIN (NOVOLOG) ASPART 100 UNITS/ML 10ML VIAL ONE (11:16)
[2017-02-25 12:07] VITALS: BP 128/60; PULSE 70; TEMP 97.8
[2017-02-25] MEDS ORDERED: PT OWN MED DRAWER 7, Y5N ONE (12:39)
--- NOTE | 2017-02-25 14:33 | PATH ---
Surgical Pathology Report Patient Name: KIANNA MATHEWS Med. Rec. #: [id number] /Age/Gender: 1960 (Age: 56) / M Account: [id number] Location: [facility] MED/SURG Taken: 02/24/2017 Received: 02/24/2017 Reported: 02/25/2017 Physicians: Nadir Lombardo M.D. Specimen(s) Received BX ESOPHAGUS Clinical History Abdominal pain Freida esophagitis, erosion cardia Final Diagnosis DISTAL ESOPHAGUS, BIOPSY: SQUAMOUS EPITHELIUM WITH PAPILLOMATOSIS, ACUTE INFLAMMATION, AND MILD SUPERFICIAL ULCERATION. FUNGAL STAIN (PAS) IS POSITIVE FOR MULTIPLE FUNGAL AND YEAST FORMS WITHIN KERATINOUS MATERIAL. NO INTESTINAL METAPLASIA IDENTIFIED (NO MANSFIELD'S IDENTIFIED). Electronically Signed Tad Peguero M.D. Gross Description Received in formalin, labeled "biopsy distal esophagus" are 2 alcala, irregular portions of soft tissue averaging 0.2 cm. in greatest dimension. The specimens are submitted in toto in one cassette. /02/24/2017 saudi02/24/2017
[2017-02-26 00:10] LABS: HEP B SURFACE AB Reactive (.)
== END 2017-02-25 13:39 | disposition home or self-care (01) | DRG 368 ==
LOC: JER 13:27 → JERBED 18:36 → J8W 20:35
PROVIDERS: ADMIT Internal Medicine; ATTEND Internal Medicine
PROC: 5A1D60Z (ICD-10-PCS; 2017-02-22)
PROC: 0DB58ZX Excision of Esophagus, Via Natural or Artificial Opening Endoscopic, Diagnostic (ICD-10-PCS; 2017-02-24)
PROC: 0DB98ZX Excision of Duodenum, Via Natural or Artificial Opening Endoscopic, Diagnostic (ICD-10-PCS; principal; 2017-02-24 08:00)
DX: B37.81 Candidal esophagitis (principal); N18.6 End stage renal disease; I12.0 Hypertensive chronic kidney disease with stage 5 chronic kidney disease or end stage renal disease; K86.2 Cyst of pancreas; I25.10 Atherosclerotic heart disease of native coronary artery without angina pectoris; E11.22 Type 2 diabetes mellitus with diabetic chronic kidney disease; E11.65 Type 2 diabetes mellitus with hyperglycemia; D64.9 Anemia, unspecified; E78.5 Hyperlipidemia, unspecified; E11.43 Type 2 diabetes mellitus with diabetic autonomic (poly)neuropathy; K31.84 Gastroparesis; K29.70 Gastritis, unspecified, without bleeding; E66.8 Other obesity; Z68.30 Body mass index [BMI] 30.0-30.9, adult; K82.8 Other specified diseases of gallbladder; Z89.021 Acquired absence of right finger(s); Z99.2 Dependence on renal dialysis; Z95.5 Presence of coronary angioplasty implant and graft; Z79.4 Long term (current) use of insulin
CPT/HCPCS: 36415; 74176-TC; 74181-TC; 76705-TC; 80053; 80076; 82150; 83605; 83690; 84484; 85025; 85027; 85610; 86301; 86704; 86706; 86708; 86803; 87340; 88305-TC; 93005; 93010; 99285-25

== ENCOUNTER 2017-04-09 16:53 | Inpatient (IN) | payer OTHER ==
[2017-04-09 18:38] LABS: BASOPHIL 0.6 % (0-2.0); MCH 27.9 pg (25.7-33.7); MCHC 32.2 g/dl (32.0-35.9); MEAN CELL VOLUME 86.6 fl (80-96); MEAN PLT VOLUME 8.3 fl (7.5-11.1); NEUTROPHILS 70.9 % (42.8-82.8); PLATELET COUNT 222 K/MM3 (134-434); RDW 17.6 % (11.9-15.9); WHITE BLOOD COUNT 6.8 K/mm3 (4.0-10.0)
--- NOTE | 2017-04-09 18:57 | PDOC ---
Attending Attestation - Resident Resident Name: Eric Bender - ED Attending Attestation I have performed the following: I have examined & evaluated the patient, The case was reviewed & discussed with the resident, I agree w/resident's findings & plan, Exceptions are as noted - HPI HPI: 04/09/17 18:51 56yo M hx DM, ESRD (TTS), HTN send in by PMD for admission for L foot wound. Pt denies other sxs of fevers, chills, cp, sob, weakness, dizziness. Has not taken any antibiotics for his wound. - Physicial Exam PE: 04/09/17 18:57 GENERAL: Awake, alert, and fully oriented, in no acute distress HEAD: No signs of trauma EYES: PERRLA, EOMI, sclera anicteric, conjunctiva clear ENT: Auricles normal inspection, hearing grossly normal, nares patent, oropharynx clear without exudates. Moist mucosa NECK: Normal ROM, supple, no lymphadenopathy, JVD, or masses LUNGS: Breath sounds equal, clear to auscultation bilaterally. No wheezes, and no crackles HEART: Regular rate and rhythm, normal S1 and S2, no murmurs, rubs or gallops ABDOMEN: Soft, nontender, normoactive bowel sounds. No guarding, no rebound. No masses EXTREMITIES: Normal range of motion, no clubbing or cyanosis. L dorsal distal metatarsal skin with deep malodorous ulcer NEUROLOGICAL: Normal speech, cranial nerves intact, negative pronator drift, 5/ 5 strength in all 4 extremities, normal sensation to light touch in all 4 extremities, normal cerebellar exam, normal gait, normal reflexes and tone SKIN: Warm, Dry, normal turgor, no rashes or lesions noted. - Medical Decision Making 04/09/17 20:51 56yo M hx DM, ESRD, R 3rd finger amputation p/w infected L foot ulcer. Pt is HDS -labs -blood cx -foot xr -vanc/zosyn -admit Dr. Villa
[2017-04-09 19:05] LABS: ALK PHOS 223 U/L (45-117); ANION GAP 12 (8-16); BILIRUBIN,TOTAL 0.3 mg/dL (0.2-1.0); CALCIUM 7.9 mg/dL (8.5-10.1); CO2 25 mmol/L (21-32); CREATININE 6.6 mg/dL (0.7-1.3); GLUCOSE,RANDOM 242 mg/dL (74-106); SGPT/ALT 31 U/L (12-78); TOT PROT 8.1 g/dl (6.4-8.2)
[2017-04-09 19:10] LABS: SGOT/AST 24 U/L (15-37)
[2017-04-09] MEDS ORDERED: VANCOMYCIN 1,000 MG in DEXTROSE 5%-WATER - 250 ML IVPB ONE (20:53)
[2017-04-09] MEDS ORDERED: ZOLPIDEM TARTRATE 5 MG TABLET PO PRN (20:53)
[2017-04-09] MEDS ORDERED: ALBUTEROL SO4 0.083% IH SOL 2.5 MG/3 ML VIAL.NEB. NEB PRN (20:53)
[2017-04-09] MEDS ORDERED: PIPERACILLIN/TAZOB 3.375 GM/50 ML PRE-DOCKED IV ONE (20:53)
[2017-04-09] MEDS ORDERED: oxyCODONE HCL 5 MG TABLET ONE (21:15)
[2017-04-09] MEDS ORDERED: PIPERACILLIN/TAZOB 3.375 GM 50 ML IVPB ONE (21:16)
[2017-04-09] MEDS ORDERED: VANCOMYCIN 1 GRAM (PRE-DOCKED) 250 ML IVPB ONE (21:16)
[2017-04-09] MEDS: oxyCODONE HCL 5 MG TABLET PO PRN (21:25)
[2017-04-09] MEDS: PANTOPRAZOLE 40 MG TABLET (FP) PO SCH (22:31)
[2017-04-09] MEDS: ATORVASTATIN CA 10 MG TABLET (FP) PO SCH (22:31)
[2017-04-09] MEDS: SUCRALFATE 1 GM/10 ML UNIT DOSE CUPS PO SCH (22:31)
[2017-04-09] MEDS: INSULIN DETEMIR 100 UNITS/ML MDV SQ SCH (22:33)
[2017-04-09] MEDS: METOPROLOL TARTRATE 25 MG TABLET (FP) PO SCH (22:35)
[2017-04-09 23:16] VITALS: BMI 32.3
[2017-04-10 00:26] LABS: ALBUMIN 2.7 g/dl (3.4-5.0); ANION GAP 12 (8-16); BILIRUBIN,TOTAL 0.4 mg/dL (0.2-1.0); CALCIUM 7.4 mg/dL (8.5-10.1); CO2 24 mmol/L (21-32); CREATININE 7.1 mg/dL (0.7-1.3); SGOT/AST 11 U/L (15-37); SGPT/ALT 27 U/L (12-78); TOT PROT 7.3 g/dl (6.4-8.2)
[2017-04-10 00:27] LABS: ALK PHOS 205 U/L (45-117)
[2017-04-10 00:32] LABS: GLUCOSE,RANDOM 430 mg/dL (74-106)
[2017-04-10] MEDS ORDERED: PIPERACILLIN/TAZOB 2.25 GM 2.25 GM in DEXTROSE 5%-WATER - 50 ML IVPB SCH (02:00)
[2017-04-10] MEDS: oxyCODONE HCL 5 MG TABLET PO PRN ×2 (06:12→13:59)
[2017-04-10] MEDS: INSULIN SLIDING SCALE (NOVOLOG) 1 VIAL SQ SCH ×3 (06:31→17:55)
[2017-04-10] MEDS: METOCLOPRAMIDE HCL 10 MG TABLET (FP) PO SCH ×3 (06:32→17:54)
[2017-04-10] MEDS ORDERED: INSULIN (NOVOLOG MIX 70/30) 100 UNITS/ML MDV SQ SCH (07:00)
[2017-04-10] MEDS: CALCIUM ACETATE 667 MG CAPSULE (FP) PO SCH ×3 (08:51→17:54)
--- NOTE | 2017-04-10 11:13 | CONSULT ---
Consultation: CONSULT REQUEST: INFECTIOUS DISEASE HISTORY OF PRESENT ILLNESS: Mr Rodriguez is a 56yo M with PMHx of DM2, ESRD on HD (TTS), PAD with R 3rd finger amputation, who was sent from [place] due to L foot wound. Patient states that 3 weeks ago he noticed a small scar on his foot while he was vacationing with family in [place]. He doesn't recall any instigating trauma to the area. He proceeded to scratch the area, and it slowly enlarged to 1 inch sized circumscribed, indurated wound. He has noted purulence in the area, at times surrounding erythema. He did not take any antibiotics. Upon arriving to [place] from [place], he decided to go to his PMD, who sent him to the ER. He denies fevers, chills, pain to the area, but notes decreased sensation in his R toes. In the ER he was afebrile with stable VSS. He was given Vancomycin 1g and Zosyn 2.25 x1. He also notes R second finger nail had been falling off, has it wrapped currently. He denies smoking, drinking, drug hx. Denies recent travel OOC. No sick contacts. Lives in [place] with , children live in [place]. Home Medication List Medication Instructions Recorded Confirmed Type Esomeprazole Mag Trihydrate 40 mg PO DAILY 10/10/14 04/10/17 History [Nexium] Insulin Glargine,Hum.rec.anlog 30 units SQ HS 07/05/16 04/09/17 History [Lantus (10mL VIAL) -] Insulin (Novolog 70/30) [Novolog 30 units SQ BID 02/21/17 04/10/17 History Mix 70/30 Flexpen -] Benzonatate 200 mg PO DAILY 04/09/17 04/10/17 History Calcium Acetate 667 mg PO DAILY 04/09/17 04/10/17 History Esomeprazole Magnesium 40 mg PO DAILY 04/09/17 04/10/17 History Folic Acid/Vit Bcomp,C [Piedad-Kelly 0.8 mg PO DAILY 04/09/17 04/10/17 History Tablet] Furosemide [Lasix] 80 mg PO DAILY 04/09/17 04/10/17 History Insulin Glargine,Hum.rec.anlog 30 units SQ AM 04/09/17 04/09/17 History [Lantus (10mL VIAL) -] Labetalol HCl [Normodyne -] 200 mg PO BID 04/09/17 04/10/17 History Metoprolol Succinate [Toprol Xl -] 25 mg PO DAILY 04/09/17 04/10/17 History Montelukast Na [Singulair -] 10 mg PO DAILY 04/09/17 04/10/17 History Sevelamer Carbonate [Renvela -] 800 mg PO TID 04/09/17 04/10/17 History Active Medications Generic Name Dose Route Start Last Admin Trade Name Freq PRN Reason Stop Dose Admin Albuterol Sulfate 1 amp 04/09/17 20:53 Ventolin 0.083% Nebulizer Soln - NEB Q4H PRN SHORT OF BREATH/WHEEZING Amlodipine Besylate 10 mg 04/10/17 10:00 Norvasc - PO DAILY [facility] Atorvastatin Calcium 10 mg 04/09/17 22:00 04/09/17 22:31 Lipitor - PO 10 mg HS [facility] Administration Calcium Acetate 667 mg 04/10/17 08:00 04/10/17 08:51 Phoslo - PO 667 mg TIDCM [facility] Administration Piperacillin Sod/Tazobactam 50 mls @ 100 mls/hr 04/10/17 02:00 Sod 2.25 gm/ Dextrose IVPB Q8H-IV [facility] Protocol Insulin Aspart 1 vial 04/10/17 07:00 04/10/17 06:31 Novolog Vial Sliding Scale - SQ 6 units TIDAC [facility] Administration Protocol Insulin Aspart 30 units 04/10/17 07:00 04/10/17 06:30 Novolog Mix 70/30 Vial SQ 30 units BIDI [facility] Administration Insulin Detemir 30 units 04/09/17 22:00 04/09/17 22:33 Levemir Vial SQ 30 units HS [facility] Administration Losartan Potassium 50 mg 04/10/17 10:00 Cozaar - PO DAILY [facility] Metoclopramide HCl 5 mg 04/10/17 07:00 04/10/17 06:32 Reglan - PO 5 mg TIDAC [facility] Administration Metoprolol Tartrate 25 mg 04/09/17 22:00 04/09/17 22:35 Lopressor - PO 25 mg BID [facility] Administration Oxycodone HCl 5 mg 04/09/17 20:53 04/10/17 06:12 Roxicodone - PO 5 mg Q4H PRN Administration PAIN Pantoprazole Sodium 40 mg 04/09/17 22:00 04/09/17 22:31 Protonix - PO 40 mg BID [facility] Administration Rivaroxaban 15 mg 04/10/17 10:00 Xarelto - PO DAILY [facility] Sucralfate 1 gm 04/09/17 22:00 04/09/17 22:31 Carafate Oral Suspension - PO 1 gm QID [facility] Administration Zolpidem Tartrate 5 mg 04/09/17 20:53 Ambien - PO HS PRN INSOMNIA REVIEW OF SYSTEMS: CONSTITUTIONAL: Absent: fever, chills, diaphoresis, generalized weakness, malaise, loss of appetite, weight change HEENT: Absent: rhinorrhea, nasal congestion, throat pain, throat swelling, difficulty swallowing, mouth swelling, ear pain, eye pain, visual changes CARDIOVASCULAR: Absent: chest pain, syncope, palpitations, irregular heart rate, lightheadedness , peripheral edema RESPIRATORY: Absent: cough, shortness of breath, dyspnea with exertion, orthopnea, wheezing, stridor, hemoptysis GASTROINTESTINAL: Absent: abdominal pain, abdominal distension, nausea, vomiting, diarrhea, constipation, melena, hematochezia GENITOURINARY: Absent: dysuria, frequency, urgency, hesitancy, hematuria, flank pain, genital pain MUSCULOSKELETAL: Absent: myalgia, arthralgia, joint swelling, back pain, neck pain SKIN: Absent: rash, itching, pallor HEMATOLOGIC/IMMUNOLOGIC: Absent: easy bleeding, easy bruising, lymphadenopathy, frequent infections ENDOCRINE: Absent: unexplained weight gain, unexplained weight loss, heat intolerance, cold intolerance NEUROLOGIC: Absent: headache, focal weakness or paresthesias, dizziness, unsteady gait, seizure, mental status changes, bladder or bowel incontinence PSYCHIATRIC: Absent: anxiety, depression, suicidal or homicidal ideation, hallucinations. PHYSICAL EXAMINATION Vital Signs Temperature 98.1 F 04/10/17 09:02 Pulse Rate 77 04/10/17 09:02 Respiratory Rate 18 04/10/17 09:02 Blood Pressure 135/84 04/10/17 09:02 O2 Sat by Pulse Oximetry (%) 96 04/09/17 23:19 GEN: AAOx3, NAD, Lying comfortably in the bed, not ill appearing HEENT: PERRLA, EOMi CV: S1, S2, RRR LUNG: CTABL ABD: Soft, NT, ND, normoactive BS MSK: L foot: Appx 3cm circumscribed slightly healed over-ulcer on distal dorsal aspect, ?gangrenous, appears to have underlying purulence, malodorous, surrounding erythema, warm, pedal edema up to ankles R foot: No ulcers R 2nd finger: Healed over scar overlying finger, wrapped. NEURO: 5/5 muscle strength, decreased sensation in distal L foot CBC, BMP 04/09/17 18:20 04/09/17 23:30 Laboratory Tests 04/09/17 23:30 Creat Clearance w eGFR 8.02 ASSESSMENT/PLAN: Mr Rodriguez is a 56yo M with PMHx of DM2, ESRD on HD (TTS), PAD with R 3rd finger amputation, who was sent from PMD due to L foot wound. # L Diabetic Foot Ulcer - S/p Vanc + Zosyn in ER last night - Ceftazidime 2gm IV today --> 500mg QD + Clindamycin 600mg IV Q8H - Give all abx after dialysis today - Vanc level to dose Vancomycin - Wound Culture - ESR, CRP - F/u vascular consult for further imaging of LE arteries + debridement Will discuss w/ Dr Leal. Will follow Marco Sanchez MD - PGY1 Infectious Disease Visit type - Emergency Visit Emergency Visit: No - New Patient This patient is new to me today: No - Critical Care Critical Care patient: No
--- NOTE | 2017-04-10 11:27 | HP ---
Admitting History and Physical - Primary Care Physician PCP: Singh Sandra - Admission Chief Complaint: left foot ulcer History of Present Illness: 56 yrs old male sent from Dr Sandra office for left foot non healing ulcer-- 3 weeks Pt has extensive H/O CAD, PAD, DM , HTN, ESRD on HD He was in [place] where he noticed a black spot on top of his left forefoot-- he scratched it open and has been healing poorly ever since. Getting bigger. Not painful. Has decreased sensation on left big toe. History Source: Patient Limitations to Obtaining History: No Limitations - Past Medical History Cardiovascular: Yes: CAD, HTN, Hyperlipdemia Renal/: Yes: Renal Failure, Hemodialysis Heme/Onc: Yes: Anemia Endocrine: Yes: Diabetes Mellitus - Past Surgical History Past Surgical History: Yes: AV Fistula/Graft Additional Past Surgical History: amputation of left third finger - Smoking History Smoking history: Never smoked Have you smoked in the past 12 months: No Aproximately how many cigarettes per day: 0 - Alcohol/Substance Use Hx Alcohol Use: No Home Medications - Allergies Allergies/Adverse Reactions: Allergies Allergy/AdvReac Type Severity Reaction Status Date / Time No Known Drug Allergies Allergy Verified 04/09/17 16:57 - Home Medications Home Medications: Ambulatory Orders Aspirin 81 mg PO DAILY #0 tab.chew 01/07/13 Esomeprazole Mag Trihydrate [Nexium] 40 mg PO DAILY 10/10/14 Amlodipine Besylate [Norvasc -] 10 mg PO DAILY tablet 06/14/16 Atorvastatin Ca [Lipitor] 10 mg PO HS #30 tablet 06/14/16 Insulin Glargine,Hum.rec.anlog [Lantus (10mL VIAL) -] 30 units SQ HS 07/05/16 Albuterol 0.083% Nebulizer Faviola [Ventolin 0.083% Nebulizer Soln -] 1 amp NEB Q4H PRN #0 amp 08/10/16 Insulin (Novolog 70/30) [Novolog Mix 70/30 Flexpen -] 30 units SQ BID 02/21/17 Benzonatate 200 mg PO DAILY 04/09/17 Calcium Acetate 667 mg PO DAILY 04/09/17 Esomeprazole Magnesium 40 mg PO DAILY 04/09/17 Folic Acid/Vit Bcomp,C [Piedad-Kelly Tablet] 0.8 mg PO DAILY 04/09/17 Furosemide [Lasix] 80 mg PO DAILY 04/09/17 Insulin Glargine,Hum.rec.anlog [Lantus (10mL VIAL) -] 30 units SQ AM 04/09/17 Labetalol HCl [Normodyne -] 200 mg PO BID 04/09/17 Metoprolol Succinate [Toprol Xl -] 25 mg PO DAILY 04/09/17 Montelukast Na [Singulair -] 10 mg PO DAILY 04/09/17 Sevelamer Carbonate [Renvela -] 800 mg PO TID 04/09/17 Review of Systems - Review of Systems Constitutional: denies: Chills, Fever, Weakness Integumentary: reports: Wound Physical Examination Vital Signs: Vital Signs Temperature 98.1 F 04/10/17 09:02 Pulse Rate 77 04/10/17 09:02 Respiratory Rate 18 04/10/17 09:02 Blood Pressure 135/84 04/10/17 09:02 O2 Sat by Pulse Oximetry (%) 96 04/09/17 23:19 Constitutional: Yes: No Distress, Calm Cardiovascular: Yes: Regular Rate and Rhythm Respiratory: Yes: Diminished Gastrointestinal: Yes: Normal Bowel Sounds, Soft, Abdomen, Obese. No: Distention, Tenderness Edema: Yes Edema: LLE: 2+, RLE: 1+ Wound/Incision: Yes: Other (left dorsum- ulcer noted, yellowish surroudings , granualtio tissue present.Left big toe edema+,discoloration noted left toe) Neurological: Yes: Alert, Oriented Labs: CBC, BMP 04/09/17 23:30 Imaging - Results X-ray: Report Reviewed EKG: Image Reviewed (NSR) Assessment/Plan PLAN Non healing Left foot ulcer Diabetes ESRD on HD PAD HTN CAD -- iv antibiotics --received vanco and Zosym yesterday -- pain control -- Vascular and ID eval -- HD per Renal -- continue with diabetic control -- DVT prophylaxis-- Heparin sc -- check venous and arterial doppler
--- NOTE | 2017-04-10 13:35 | PN ---
Teaching Attending Note Name of Resident: Marco Sanchez ATTENDING PHYSICIAN STATEMENT I saw and evaluated the patient. I reviewed the resident's note and discussed the case with the resident. I agree with the resident's findings and plan as documented. SUBJECTIVE:ESRD DM Soft tissue infection left foot OBJECTIVE:Marked swelling left foot No crepitance or tenderness Necrotic gangrenous ulcer dorsum left foot erythematous foul smelling ASSESSMENT AND PLAN:Diabetic gangrene with cellultis left foot Plan Surgical evaluation for debridement CRP Vanco level Clindamycin 600mg IVPB q 8H Ceftazidime 2 grs then 500mg q 24 H Elvis MANCINI Problem List - Problems (1) Diabetes Code(s): E11.9 - TYPE 2 DIABETES MELLITUS WITHOUT COMPLICATIONS Qualifiers: Diabetes mellitus type: type 2 Diabetes mellitus complication status: with unspecified complications (2) ESRD (end stage renal disease) on dialysis Code(s): N18.6 - END STAGE RENAL DISEASE Z99.2 - DEPENDENCE ON RENAL DIALYSIS (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
[2017-04-10] MEDS ORDERED: CEFTAZIDIME PENTAHYDRATE 2 GM in DEXTROSE 5%-WATER - 100 ML IVPB ONE (14:30)
[2017-04-10] MEDS ORDERED: PT OWN MED DRAWER 7, Y5N ONE ×5 (14:35→21:21)
[2017-04-10] MEDS: LOSARTAN POTASSIUM 50 MG TABLET (FP) PO SCH (14:44)
[2017-04-10] MEDS: amLODIPine BESYLATE 10 MG TABLET (FP) PO SCH (14:44)
[2017-04-10] MEDS: METOPROLOL TARTRATE 25 MG TABLET (FP) PO SCH (14:48)
[2017-04-10] MEDS: SUCRALFATE 1 GM/10 ML UNIT DOSE CUPS PO SCH ×3 (14:48→17:56)
[2017-04-10] MEDS: RIVAROXABAN 15 MG TABLET PO SCH (14:48)
[2017-04-10] MEDS: PANTOPRAZOLE 40 MG TABLET (FP) PO SCH (14:48)
[2017-04-10 15:31] LABS: MCH 28.2 pg (25.7-33.7); MEAN PLT VOLUME 9.1 fl (7.5-11.1); RDW 17.6 % (11.9-15.9)
[2017-04-10 15:43] LABS: WHITE BLOOD COUNT 10.9 K/mm3 (4.0-10.0)
[2017-04-10 16:03] LABS: ALBUMIN 2.9 g/dl (3.4-5.0); ANION GAP 13 (8-16); CALCIUM 7.9 mg/dL (8.5-10.1); CO2 24 mmol/L (21-32); GLUCOSE,RANDOM 128 mg/dL (74-106)
[2017-04-10 16:12] LABS: ALK PHOS 229 U/L (45-117); BILIRUBIN,TOTAL 0.5 mg/dL (0.2-1.0); SGOT/AST 20 U/L (15-37); SGPT/ALT 32 U/L (12-78); TOT PROT 7.8 g/dl (6.4-8.2)
[2017-04-10 16:13] LABS: CREATININE 8.2 mg/dL (0.7-1.3)
[2017-04-10] MEDS ORDERED: INSULIN (NOVOLOG) ASPART 100 UNITS/ML 10ML VIAL ONE ×2 (17:48→18:04)
[2017-04-10 17:55] LABS: PLATELET COUNT 205 K/MM3 (134-434)
[2017-04-10] MEDS: INSULIN (NOVOLOG MIX 70/30) 100 UNITS/ML MDV SQ SCH (17:55)
[2017-04-10 17:56] LABS: BASOPHIL (MANUAL) 1 % (0-2.0); PLATELET COMMENT2 NO CLUMPING NOTED; PLATELET ESTIMATE ADEQUATE (NORMAL); REACTIVE LYMPHOCYTES 1 % (0-80); TOTAL CELLS COUNTED 100
--- NOTE | 2017-04-10 18:26 | PN ---
Progress Note (short form) - Note Progress Note: Asked by Dr. Gonzalez to see patient. 56 yo male sent in by PCP/Dr. Sandra due to chronic non-healing left foot ulcer. PMHx significant for DM, HTN, ESRD on HD, anemia, CAD and PAD. States he first noticed a black spot on top of his foot while he was on vacation in [place]. He admits that he scratched and it has remained open ever since. Poor wound healing secondary to DM. Wound has increased slowly in size. + decreased sensation on left big toe. Denies pain with ambulation. Last Vital Signs Temp Pulse Resp BP Pulse Ox 97.7 F 75 20 150/77 97 04/10/17 14:03 04/10/17 14:03 04/10/17 14:03 04/10/17 14:03 04/10/17 09:00 CBC, BMP 04/10/17 14:45 04/10/17 14:45 Gen: nad. LE: Left: + swelling to foot, neg crepitance. Neg ttp. Necrotic/gangrenous ulcer dorsum left foot. Neg purulent drainage. + foul smelling. + palpable DP Right: unremarkable <Franki Butts - Last Filed: 04/10/17 18:34> - Note Progress Note: Patient well known to me for dialysis access issues. He has developed ischemic wounds of right fingers despite normal distal arterial flow requiring finger amputation. He is now admitted with non-healing wound of left 1st toe. He has had arterial studies in my office and here which show no significant disease in either leg. A CTA is ordered to confirm the absence of arterial disease. Podiatric evaluation and possible toe amputation will be needed. <Reymundo Gonzalez - Last Filed: 04/10/17 19:52> Problem List - Problems (1) Cellulitis of foot Assessment/Plan: ID Dr. Leal consult note appreciated IV ABX At RN request, place 20ga angiocath in right foot in preparation for CTA Could benefit from surgical i&d debridement Medical optimization / clearance Type and Screen Coags Dr. Gonzalez to see patient this evening. Code(s): L03.119 - CELLULITIS OF UNSPECIFIED PART OF LIMB (2) Diabetes Assessment/Plan: Tight glycemic control Code(s): E11.9 - TYPE 2 DIABETES MELLITUS WITHOUT COMPLICATIONS Qualifiers: Diabetes mellitus type: type 2 Diabetes mellitus complication status: with unspecified complications (3) ESRD (end stage renal disease) Assessment/Plan: HD via AVF per patient's schedule Code(s): N18.6 - END STAGE RENAL DISEASE <Franki Butts - Last Filed: 04/10/17 18:34>
--- NOTE | 2017-04-10 19:43 | CON.NEP ---
Consult Consult Specialty:: Nephrology Referred by:: Medicine Reason for Consultation:: End stage renal disease - History of Present Illness Chief Complaint: Left foot gangrene History of Present Illness: 56 year olf gentleman with history of type 2 diabetes mellitus, hypertension and end stage renal disease who is admitted with diabetic left foot with some ulceration on the top of the big toe and meta-tarsal area. Patient has a history of peripheral vascular disease. She is on hemodialysis three times every week. - History Source History Provided By: Patient Limitations to Obtaining History: No Limitations - Past Medical History Cardio/Vascular: Yes: CAD, HTN, Hyperlipdemia Renal/: Yes: Renal Failure, Hemodialysis Heme/Onc: Yes: Anemia Musculoskeletal: Yes: Other (peripheral vascular disease) Endocrine: Yes: Diabetes Mellitus - Past Surgical History Past Surgical History: Yes: AV Fistula/Graft - Alcohol/Substance Use Hx Alcohol Use: No - Smoking History Smoking history: Never smoked Have you smoked in the past 12 months: No Aproximately how many cigarettes per day: 0 - Social History Usual Living Arrangement: With Spouse Home Medications - Allergies Allergies/Adverse Reactions: Allergies Allergy/AdvReac Type Severity Reaction Status Date / Time No Known Drug Allergies Allergy Verified 04/09/17 16:57 - Home Medications Home Medications: Ambulatory Orders Aspirin 81 mg PO DAILY #0 tab.chew 01/07/13 Esomeprazole Mag Trihydrate [Nexium] 40 mg PO DAILY 10/10/14 Amlodipine Besylate [Norvasc -] 10 mg PO DAILY tablet 06/14/16 Atorvastatin Ca [Lipitor] 10 mg PO HS #30 tablet 06/14/16 Insulin Glargine,Hum.rec.anlog [Lantus (10mL VIAL) -] 30 units SQ HS 07/05/16 Albuterol 0.083% Nebulizer Faviola [Ventolin 0.083% Nebulizer Soln -] 1 amp NEB Q4H PRN #0 amp 08/10/16 Insulin (Novolog 70/30) [Novolog Mix 70/30 Flexpen -] 30 units SQ BID 02/21/17 Benzonatate 200 mg PO DAILY 04/09/17 Calcium Acetate 667 mg PO DAILY 04/09/17 Esomeprazole Magnesium 40 mg PO DAILY 04/09/17 Folic Acid/Vit Bcomp,C [Piedad-Kelly Tablet] 0.8 mg PO DAILY 04/09/17 Furosemide [Lasix] 80 mg PO DAILY 04/09/17 Insulin Glargine,Hum.rec.anlog [Lantus (10mL VIAL) -] 30 units SQ AM 04/09/17 Labetalol HCl [Normodyne -] 200 mg PO BID 04/09/17 Metoprolol Succinate [Toprol Xl -] 25 mg PO DAILY 04/09/17 Montelukast Na [Singulair -] 10 mg PO DAILY 04/09/17 Sevelamer Carbonate [Renvela -] 800 mg PO TID 04/09/17 Review of Systems - Review of Systems Cardiovascular: reports: Edema Musculoskeletal: reports: Extremity Pain (pain in the left foot with surrounding edema IVAC in the right foot.) Nephrology Consult - Height Height: 5 ft 7 in - Weight Weight: 206 lb 6 oz - BMI Body Mass Index (BMI): 32.3 - Lab Results CBC,BMP: CBC, BMP 04/10/17 14:45 04/10/17 14:45 Anion Gap: Anion Gap Anion Gap 13 (8-16) 04/10/17 14:45 - Physical Examination Vital Signs: Vital Signs Temperature 98 F 04/10/17 19:32 Pulse Rate 75 04/10/17 19:32 Respiratory Rate 18 04/10/17 19:32 Blood Pressure 153/71 04/10/17 19:32 O2 Sat by Pulse Oximetry (%) 97 04/10/17 09:00 Constitutional: Yes: Well Nourished, No Distress, Calm Eyes: Yes: WNL HENT: Yes: WNL, Atraumatic, Normocephalic Neck: Yes: WNL Cardiovascular: Yes: WNL, Other Respiratory: Yes: Rales (bibasilar crackles present.) Gastrointestinal: Yes: WNL, Normal Bowel Sounds, Soft, Abdomen, Obese Access for Hemodialysis: AV Graft (positive bruit right arm AV graft) Extremities: Yes: Amputation (left second finger ulcer of the left foot over the big toe) Edema: LUE: 1+, RUE: Trace Problem List - Problems (1) Diabetic gangrene Assessment/Plan: Continue antibiotic as per the primary team. Vascular surgery evaluation is also requested Code(s): E11.52 - TYPE 2 DIABETES W DIABETIC PERIPHERAL ANGIOPATHY W GANGRENE (2) ESRD (end stage renal disease) Assessment/Plan: Patient is for hemodialysis today as per the dialysis orders. Ultra-filtration goal of 1.5-2 kg as tolerated. Code(s): N18.6 - END STAGE RENAL DISEASE (3) Anemia associated with chronic renal failure Assessment/Plan: Epogen 10,000 units to be administered during dialysis. Replete iron deficit as needed Code(s): D63.1 - ANEMIA IN CHRONIC KIDNEY DISEASE
[2017-04-10] MEDS ORDERED: EPOETIN ALFA 10,000 UNIT/1 ML VIAL IVPUSH ONE (19:55)
[2017-04-10 23:13] LABS: CREATININE 8.9 mg/dL (0.7-1.3)
[2017-04-11] MEDS: CLINDAMYCIN 600MG PREMIX IVPB 50 ML IVPB SCH ×5 (00:43→18:32)
[2017-04-11] MEDS: ATORVASTATIN CA 10 MG TABLET (FP) PO SCH ×2 (02:05→22:56)
[2017-04-11] MEDS: METOPROLOL TARTRATE 25 MG TABLET (FP) PO SCH ×3 (02:05→22:56)
[2017-04-11] MEDS: oxyCODONE HCL 5 MG TABLET PO PRN ×3 (02:05→22:59)
[2017-04-11] MEDS: SUCRALFATE 1 GM/10 ML UNIT DOSE CUPS PO SCH ×5 (02:18→22:55)
[2017-04-11] MEDS: PANTOPRAZOLE 40 MG TABLET (FP) PO SCH ×3 (02:18→22:55)
[2017-04-11] MEDS: MUPIROCIN 2% TOPICAL OINTMENT 22 GM TUBE TP SCH ×3 (02:37→22:55)
[2017-04-11] MEDS: INSULIN DETEMIR 100 UNITS/ML MDV SQ SCH ×2 (02:38→23:04)
[2017-04-11 03:39] LABS: CREATININE 3.4 mg/dL (0.7-1.3)
[2017-04-11 03:41] LABS: INR 1.1 (0.82-1.09); PROTHROMBIN TIME (PATIENT) 12.4 SEC (9.98-11.88)
[2017-04-11] MEDS: INSULIN SLIDING SCALE (NOVOLOG) 1 VIAL SQ SCH ×3 (06:45→17:20)
[2017-04-11] MEDS ORDERED: INSULIN (NOVOLOG) ASPART 100 UNITS/ML 10ML VIAL ONE ×2 (09:08→20:52)
[2017-04-11] MEDS: INSULIN (NOVOLOG MIX 70/30) 100 UNITS/ML MDV SQ SCH ×2 (09:53→18:32)
[2017-04-11] MEDS ORDERED: WATER IVPB SCH ×2 (10:00→10:34)
[2017-04-11] MEDS ORDERED: DEXTROSE 5% IVPB SCH ×2 (10:00→10:34)
[2017-04-11] MEDS ORDERED: CEFTAZIDIME PENTAHYDRATE IVPB SCH ×2 (10:00→10:34)
[2017-04-11] MEDS ORDERED: PT OWN MED DRAWER 7, Y5N ONE (12:41)
--- NOTE | 2017-04-11 12:56 | PN ---
Progress Note (short form) - Note Progress Note: pt seen/ examined chart reviewed comfortable denies pain. all f/u noted Vital Signs Temp 98 F 04/11/17 06:00 Pulse 76 04/11/17 06:00 Resp 18 04/11/17 06:00 BP 149/69 04/11/17 06:00 Pulse Ox 97 04/10/17 21:00 Intake & Output 04/10/17 04/11/17 04/11/17 23:59 11:59 23:59 Intake Total 550 161 Balance 550 161 Weight 206 lb 6 oz Intake: IV 0 sl 0 Oral 550 161 Other: Voiding Method Urinal Urinal Bowel Movement Yes No # Bowel Movements 1 Height 5 ft 7 in Body Mass Index (BMI) 32.3 Active Medications Acetaminophen (Tylenol -) 650 mg PO Q4H PRN PRN Reason: PAIN Albuterol Sulfate (Ventolin 0.083% Nebulizer Soln -) 1 amp NEB Q4H PRN PRN Reason: SHORT OF BREATH/WHEEZING Amlodipine Besylate (Norvasc -) 10 mg PO DAILY [facility] Last Admin: 04/10/17 14:44 Dose: 10 mg Atorvastatin Calcium (Lipitor -) 10 mg PO HS [facility] Last Admin: 04/11/17 02:05 Dose: 10 mg Calcium Acetate (Phoslo -) 667 mg PO TIDCM [facility] Last Admin: 04/10/17 17:54 Dose: 667 mg Piperacillin Sod/Tazobactam (Sod 2.25 gm/ Dextrose) 50 mls @ 100 mls/hr IVPB Q8H-IV [facility] PRN Reason: Protocol Clindamycin Phosphate (Cleocin 600 Mg Premix Ivpb -) 50 mls @ 100 mls/hr IVPB Q8H-IV [facility] Last Admin: 04/11/17 09:14 Dose: Not Given Ceftazidime 0.5 gm/ Dextrose 100 mls @ 200 mls/hr IVPB DAILY [facility] PRN Reason: Protocol Insulin Aspart (Novolog Vial Sliding Scale -) 1 vial SQ TIDAC [facility] PRN Reason: Protocol Last Admin: 04/11/17 06:45 Dose: Not Given Insulin Aspart (Novolog Mix 70/30 Vial) 32 units SQ BIDI [facility] Last Admin: 04/11/17 09:53 Dose: 32 units Insulin Detemir (Levemir Vial) 30 units SQ HS [facility] Last Admin: 04/11/17 02:38 Dose: Not Given Losartan Potassium (Cozaar -) 50 mg PO DAILY [facility] Last Admin: 04/10/17 14:44 Dose: 50 mg Metoclopramide HCl (Reglan -) 5 mg PO TIDAC [facility] Last Admin: 04/10/17 17:54 Dose: 5 mg Metoprolol Tartrate (Lopressor -) 25 mg PO BID [facility] Last Admin: 04/11/17 02:05 Dose: 25 mg Mupirocin (Bactroban 2% Ointment -) 1 applic TP BID [facility] Last Admin: 04/11/17 02:37 Dose: 1 applic Oxycodone HCl (Roxicodone -) 5 mg PO Q4H PRN PRN Reason: PAIN Last Admin: 04/10/17 13:59 Dose: 5 mg Oxycodone HCl (Roxicodone -) 10 mg PO Q4H PRN PRN Reason: PAIN Last Admin: 04/11/17 02:05 Dose: 10 mg Pantoprazole Sodium (Protonix -) 40 mg PO BID [facility] Last Admin: 04/11/17 02:18 Dose: 40 mg Rivaroxaban (Xarelto -) 15 mg PO DAILY [facility] Last Admin: 04/10/17 14:48 Dose: Not Given Sucralfate (Carafate Oral Suspension -) 1 gm PO QID [facility] Last Admin: 04/11/17 02:18 Dose: 1 gm Zolpidem Tartrate (Ambien -) 5 mg PO HS PRN PRN Reason: INSOMNIA Last Admin: 04/11/17 02:13 Dose: 5 mg CBC, BMP 04/10/17 14:45 04/11/17 01:30 Microbiology 04/09/17 21:00 Blood Culture - Preliminary Blood - Peripheral Venous NO GROWTH OBTAINED AFTER 24 HOURS, INCUBATION TO CONTINUE FOR 4 DAYS. 04/09/17 21:00 Blood Culture - Preliminary Blood - Peripheral Venous NO GROWTH OBTAINED AFTER 24 HOURS, INCUBATION TO CONTINUE FOR 4 DAYS. Physical Examination Constitutional: Yes: No Distress, Calm Cardiovascular: Yes: Regular Rate and Rhythm Respiratory: Yes: Diminished Gastrointestinal: Yes: Normal Bowel Sounds, Soft, Abdomen, Obese. No: Distention, Tenderness Edema: Yes Edema: LLE: 2+, RLE: 1+ Wound/Incision: Yes: Other (left dorsum- ulcer noted, yellowish surroudings , granualtio tissue present.Left big toe edema+,discoloration noted left toe) Neurological: Yes: Alert, Oriented Labs: Imaging - Results X-ray: Report Reviewed EKG: Image Reviewed (NSR) Assessment/Plan Non healing Left foot ulcer Diabetes ESRD on HD PAD HTN CAD -- iv antibiotics --i/d / podiatry/ vascular on case -- -- HD per Renal -- continue with diabetic control -- DVT prophylaxis-- Heparin sc -- aortogram - will follow Problem List - Problems (1) Anemia associated with chronic renal failure Code(s): D63.1 - ANEMIA IN CHRONIC KIDNEY DISEASE (2) Cellulitis of right foot Code(s): L03.115 - CELLULITIS OF RIGHT LOWER LIMB (3) Diabetes Code(s): E11.9 - TYPE 2 DIABETES MELLITUS WITHOUT COMPLICATIONS Qualifiers: Diabetes mellitus type: type 2 Diabetes mellitus complication status: with unspecified complications (4) ESRD (end stage renal disease) on dialysis Code(s): N18.6 - END STAGE RENAL DISEASE Z99.2 - DEPENDENCE ON RENAL DIALYSIS
[2017-04-11] MEDS: amLODIPine BESYLATE 10 MG TABLET (FP) PO SCH (13:15)
[2017-04-11] MEDS: CALCIUM ACETATE 667 MG CAPSULE (FP) PO SCH ×3 (13:15→18:34)
[2017-04-11] MEDS: METOCLOPRAMIDE HCL 10 MG TABLET (FP) PO SCH ×3 (13:16→18:33)
[2017-04-11] MEDS: LOSARTAN POTASSIUM 50 MG TABLET (FP) PO SCH (13:17)
[2017-04-11] MEDS: RIVAROXABAN 15 MG TABLET PO SCH (13:18)
[2017-04-11] MEDS: CEFTAZIDIME PENTAHYDRATE IVPB SCH (13:52)
[2017-04-11] MEDS: WATER IVPB SCH (13:52)
[2017-04-11] MEDS: DEXTROSE 5% IVPB SCH (13:52)
--- NOTE | 2017-04-11 14:58 | PN ---
Progress Note (short form) - Note Progress Note: ID Vancomycin Clindamycin and Ceftazidime day 1 Clincally about the same Microbiology 04/09/17 21:00 Blood - Peripheral Venous Blood Culture - Preliminary NO GROWTH OBTAINED AFTER 24 HOURS, INCUBATION TO CONTINUE FOR 4 DAYS. 04/09/17 21:00 Blood - Peripheral Venous Blood Culture - Preliminary NO GROWTH OBTAINED AFTER 24 HOURS, INCUBATION TO CONTINUE FOR 4 DAYS. Selected Entries 04/11/17 06:00 Temperature 98 F Respiratory 18 Rate Blood Pressure 149/69 Laboratory Tests 04/09/17 04/09/17 04/09/17 18:20 18:20 23:30 WBC 6.8 RBC Hgb Plt Count 222 D ESR Random Glucose 242 H 430 H* D Random Vancomycin 04/10/17 04/10/17 04/11/17 14:45 14:45 03:00 WBC 10.9 H D RBC 3.16 L Hgb 8.9 L Plt Count 205 ESR 120 H Random Glucose Random Vancomycin 14.332 Assessment SSTI left foot No osteo on plain film Plan Continue current antibiotics and await debridement and vascular work up Mention of amputation Problem List - Problems (1) Diabetes Code(s): E11.9 - TYPE 2 DIABETES MELLITUS WITHOUT COMPLICATIONS Qualifiers: Diabetes mellitus type: type 2 Diabetes mellitus complication status: with unspecified complications (2) ESRD (end stage renal disease) on dialysis Code(s): N18.6 - END STAGE RENAL DISEASE Z99.2 - DEPENDENCE ON RENAL DIALYSIS (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
--- NOTE | 2017-04-11 17:29 | PN ---
Progress Note (short form) - Note Progress Note: 56 WITH DM ESRD PVD RT ARM GRAFT IN WITH LEFT FORE FOOT DORSAL INFECTED ULCER ON IV ABX DIALYZED LAST NIGHT [address] ANGIO DONE TODAY BEING FOLLOWED BY DR WEST FEELS OK CHECK CLEAR EXT TRACE EDEMA LABS REVIEWED HD IN AM
[2017-04-11] MEDS: ACETAMINOPHEN 325 MG TABLET (FP) PO PRN (23:00)
[2017-04-12] MEDS: CLINDAMYCIN 600MG PREMIX IVPB 50 ML IVPB SCH ×3 (01:19→17:28)
[2017-04-12] MEDS: INSULIN SLIDING SCALE (NOVOLOG) 1 VIAL SQ SCH ×3 (06:31→17:28)
[2017-04-12] MEDS: METOCLOPRAMIDE HCL 10 MG TABLET (FP) PO SCH ×3 (06:43→17:28)
[2017-04-12] MEDS: INSULIN (NOVOLOG MIX 70/30) 100 UNITS/ML MDV SQ SCH ×3 (06:45→17:28)
[2017-04-12] MEDS ORDERED: INSULIN (NOVOLOG MIX 70/30) 100 UNITS/ML MDV SQ ONE (06:51)
[2017-04-12] MEDS ORDERED: EPOETIN ALFA 10,000 UNIT/1 ML VIAL IVPUSH ONE (09:00)
--- NOTE | 2017-04-12 09:20 | PN ---
Progress Note, Physician Chief Complaint: ID Clindamycin Ceftazidime On dialysis - Current Medication List Current Medications: Active Medications Acetaminophen (Tylenol -) 650 mg PO Q4H PRN PRN Reason: PAIN Last Admin: 04/11/17 23:00 Dose: 650 mg Albuterol Sulfate (Ventolin 0.083% Nebulizer Soln -) 1 amp NEB Q4H PRN PRN Reason: SHORT OF BREATH/WHEEZING Amlodipine Besylate (Norvasc -) 10 mg PO DAILY [facility] Last Admin: 04/11/17 13:15 Dose: 10 mg Atorvastatin Calcium (Lipitor -) 10 mg PO HS [facility] Last Admin: 04/11/17 22:56 Dose: 10 mg Calcium Acetate (Phoslo -) 667 mg PO TIDCM [facility] Last Admin: 04/11/17 18:34 Dose: 667 mg Piperacillin Sod/Tazobactam (Sod 2.25 gm/ Dextrose) 50 mls @ 100 mls/hr IVPB Q8H-IV [facility] PRN Reason: Protocol Clindamycin Phosphate (Cleocin 600 Mg Premix Ivpb -) 50 mls @ 100 mls/hr IVPB Q8H-IV [facility] Last Admin: 04/12/17 01:19 Dose: 100 mls/hr Ceftazidime 0.5 gm/ Dextrose 100 mls @ 200 mls/hr IVPB DAILY [facility] PRN Reason: Protocol Last Admin: 04/11/17 13:52 Dose: 200 mls/hr Insulin Aspart (Novolog Vial Sliding Scale -) 1 vial SQ TIDAC [facility] PRN Reason: Protocol Last Admin: 04/12/17 06:31 Dose: Not Given Insulin Aspart (Novolog Mix 70/30 Vial) 32 units SQ BIDI [facility] Last Admin: 04/12/17 06:47 Dose: Not Given Insulin Detemir (Levemir Vial) 30 units SQ HS [facility] Last Admin: 04/11/17 23:04 Dose: 30 units Losartan Potassium (Cozaar -) 50 mg PO DAILY [facility] Last Admin: 04/11/17 13:17 Dose: 50 mg Metoclopramide HCl (Reglan -) 5 mg PO TIDAC [facility] Last Admin: 04/12/17 06:43 Dose: 5 mg Metoprolol Tartrate (Lopressor -) 25 mg PO BID [facility] Last Admin: 10/13/17 22:56 Dose: 25 mg Mupirocin (Bactroban 2% Ointment -) 1 applic TP BID [facility] Last Admin: 04/11/17 22:55 Dose: 1 applic Oxycodone HCl (Roxicodone -) 5 mg PO Q4H PRN PRN Reason: PAIN Last Admin: 04/10/17 13:59 Dose: 5 mg Oxycodone HCl (Roxicodone -) 10 mg PO Q4H PRN PRN Reason: PAIN Last Admin: 04/11/17 22:59 Dose: 10 mg Pantoprazole Sodium (Protonix -) 40 mg PO BID [facility] Last Admin: 04/11/17 22:55 Dose: 40 mg Rivaroxaban (Xarelto -) 15 mg PO DAILY [facility] Last Admin: 04/11/17 13:18 Dose: 15 mg Sucralfate (Carafate Oral Suspension -) 1 gm PO QID [facility] Last Admin: 04/11/17 22:55 Dose: 1 gm Zolpidem Tartrate (Ambien -) 5 mg PO HS PRN PRN Reason: INSOMNIA Last Admin: 04/11/17 02:13 Dose: 5 mg - Objective Vital Signs: Vital Signs Temperature 97.8 F 04/12/17 05:48 Pulse Rate 68 04/12/17 05:48 Respiratory Rate 20 04/12/17 05:48 Blood Pressure 133/68 04/12/17 05:48 O2 Sat by Pulse Oximetry (%) 95 04/11/17 21:00 Constitutional: Yes: Well Nourished, No Distress HENT: Yes: WNL, Atraumatic Neck: Yes: WNL, Supple Cardiovascular: Yes: Regular Rate and Rhythm, S1, S2. No: Gallop Respiratory: Yes: WNL, Regular, CTA Bilaterally Gastrointestinal: Yes: WNL, Normal Bowel Sounds, Soft. 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 04/09/17 21:00 Blood - Peripheral Venous Blood Culture - Preliminary NO GROWTH OBTAINED AFTER 48 HOURS, INCUBATION TO CONTINUE FOR 3 DAYS. Laboratory Tests 04/10/17 04/11/17 14:45 03:00 WBC 10.9 H D Plt Count 205 ESR 120 H Assessment ESRD with gangrene dorsum foot with swelling foul odor Plan Antibiotics and await vascular evalutation Dr Gonzalez
[2017-04-12] MEDS ORDERED: DEXTROSE 5% IVPB SCH (10:00)
[2017-04-12] MEDS ORDERED: WATER IVPB SCH (10:00)
[2017-04-12] MEDS ORDERED: CEFTAZIDIME PENTAHYDRATE IVPB SCH (10:00)
[2017-04-12] MEDS ORDERED: PT OWN MED DRAWER 7, Y5N ONE ×2 (12:07→21:08)
[2017-04-12] MEDS: CALCIUM ACETATE 667 MG CAPSULE (FP) PO SCH ×3 (12:18→17:28)
[2017-04-12] MEDS: PANTOPRAZOLE 40 MG TABLET (FP) PO SCH ×2 (12:18→22:01)
[2017-04-12] MEDS: METOPROLOL TARTRATE 25 MG TABLET (FP) PO SCH ×2 (12:19→22:01)
[2017-04-12] MEDS: LOSARTAN POTASSIUM 50 MG TABLET (FP) PO SCH (12:19)
[2017-04-12] MEDS: amLODIPine BESYLATE 10 MG TABLET (FP) PO SCH (12:19)
[2017-04-12] MEDS: RIVAROXABAN 15 MG TABLET PO SCH (12:20)
[2017-04-12] MEDS: SUCRALFATE 1 GM/10 ML UNIT DOSE CUPS PO SCH ×4 (12:20→22:01)
[2017-04-12] MEDS: DEXTROSE 5% IVPB SCH (12:20)
[2017-04-12] MEDS: WATER IVPB SCH (12:20)
[2017-04-12] MEDS: CEFTAZIDIME PENTAHYDRATE IVPB SCH (12:20)
[2017-04-12] MEDS: oxyCODONE HCL 5 MG TABLET PO PRN (13:00)
[2017-04-12] MEDS: ACETAMINOPHEN 325 MG TABLET (FP) PO PRN (13:01)
--- NOTE | 2017-04-12 13:29 | PN ---
Progress Note (short form) - Note Progress Note: pt seen/ examined no new issues afebrile Vital Signs Temp 98.2 F 04/12/17 07:45 Pulse 66 04/12/17 11:50 Resp 18 04/12/17 11:50 BP 132/74 04/12/17 11:50 Pulse Ox 95 04/11/17 21:00 Intake & Output 04/11/17 04/12/17 04/12/17 23:59 11:59 23:59 Intake Total 450 50 Balance 450 50 Intake: IVPB 150 50 Oral 300 Other: Voiding Method Toilet Toilet Active Medications Acetaminophen (Tylenol -) 650 mg PO Q4H PRN PRN Reason: PAIN Last Admin: 04/12/17 13:01 Dose: 650 mg Albuterol Sulfate (Ventolin 0.083% Nebulizer Soln -) 1 amp NEB Q4H PRN PRN Reason: SHORT OF BREATH/WHEEZING Amlodipine Besylate (Norvasc -) 10 mg PO DAILY [facility] Last Admin: 04/12/17 12:19 Dose: 10 mg Atorvastatin Calcium (Lipitor -) 10 mg PO HS [facility] Last Admin: 04/11/17 22:56 Dose: 10 mg Calcium Acetate (Phoslo -) 667 mg PO TIDCM [facility] Last Admin: 04/12/17 12:21 Dose: 667 mg Piperacillin Sod/Tazobactam (Sod 2.25 gm/ Dextrose) 50 mls @ 100 mls/hr IVPB Q8H-IV [facility] PRN Reason: Protocol Clindamycin Phosphate (Cleocin 600 Mg Premix Ivpb -) 50 mls @ 100 mls/hr IVPB Q8H-IV [facility] Last Admin: 04/12/17 12:20 Dose: 100 mls/hr Ceftazidime 0.5 gm/ Dextrose 100 mls @ 200 mls/hr IVPB DAILY [facility] PRN Reason: Protocol Last Admin: 04/12/17 12:20 Dose: 200 mls/hr Insulin Aspart (Novolog Vial Sliding Scale -) 1 vial SQ TIDAC [facility] PRN Reason: Protocol Last Admin: 04/12/17 11:09 Dose: Not Given Insulin Aspart (Novolog Mix 70/30 Vial) 32 units SQ BIDI [facility] Last Admin: 04/12/17 06:47 Dose: Not Given Insulin Detemir (Levemir Vial) 30 units SQ HS [facility] Last Admin: 04/11/17 23:04 Dose: 30 units Losartan Potassium (Cozaar -) 50 mg PO DAILY [facility] Last Admin: 04/12/17 12:19 Dose: 50 mg Metoclopramide HCl (Reglan -) 5 mg PO TIDAC [facility] Last Admin: 04/12/17 12:19 Dose: 5 mg Metoprolol Tartrate (Lopressor -) 25 mg PO BID [facility] Last Admin: 04/12/17 12:19 Dose: 25 mg Mupirocin (Bactroban 2% Ointment -) 1 applic TP BID [facility] Last Admin: 04/11/17 22:55 Dose: 1 applic Oxycodone HCl (Roxicodone -) 5 mg PO Q4H PRN PRN Reason: PAIN Last Admin: 04/10/17 13:59 Dose: 5 mg Oxycodone HCl (Roxicodone -) 10 mg PO Q4H PRN PRN Reason: PAIN Last Admin: 04/12/17 13:00 Dose: 10 mg Pantoprazole Sodium (Protonix -) 40 mg PO BID [facility] Last Admin: 04/12/17 12:18 Dose: 40 mg Rivaroxaban (Xarelto -) 15 mg PO DAILY [facility] Last Admin: 04/12/17 12:20 Dose: 15 mg Sucralfate (Carafate Oral Suspension -) 1 gm PO QID [facility] Last Admin: 04/12/17 12:20 Dose: 1 gm Zolpidem Tartrate (Ambien -) 5 mg PO HS PRN PRN Reason: INSOMNIA Last Admin: 04/11/17 02:13 Dose: 5 mg CBC, BMP 04/10/17 14:45 04/11/17 01:30 Microbiology 04/10/17 15:45 Gram Stain - Final Foot - Left Wound Culture - Preliminary Lactose Fermenting Neg Bacilli Lactose Fermenting Neg Bacilli#2 Group D Strep Or Entero Coccus Presumptive Mssa (Pbp2a Neg) 04/09/17 21:00 Blood Culture - Preliminary Blood - Peripheral Venous NO GROWTH OBTAINED AFTER 48 HOURS, INCUBATION TO CONTINUE FOR 3 DAYS. 04/09/17 21:00 Blood Culture - Preliminary Blood - Peripheral Venous NO GROWTH OBTAINED AFTER 48 HOURS, INCUBATION TO CONTINUE FOR 3 DAYS. cta= done -- pending report Physical Examination Constitutional: Yes: No Distress, Calm Cardiovascular: Yes: Regular Rate and Rhythm Respiratory: Yes: Diminished Gastrointestinal: Yes: Normal Bowel Sounds, Soft, Abdomen, Obese. No: Distention, Tenderness Edema: Yes Edema: LLE: 2+, RLE: 1+ Wound/Incision: Yes: dressing + Neurological: Yes: Alert, Oriented Labs: Imaging - Results X-ray: Report Reviewed EKG: Image Reviewed (NSR) Assessment/Plan Non healing Left foot ulcer Diabetes ESRD on HD PAD HTN CAD -- iv antibiotics --i/d / podiatry/ vascular on case -- -- HD per Renal -- continue with diabetic control -- DVT prophylaxis-- Heparin sc -- aortogram - will follow Problem List - Problems (1) Anemia associated with chronic renal failure Code(s): D63.1 - ANEMIA IN CHRONIC KIDNEY DISEASE (2) Cellulitis of right foot Code(s): L03.115 - CELLULITIS OF RIGHT LOWER LIMB (3) Diabetes Code(s): E11.9 - TYPE 2 DIABETES MELLITUS WITHOUT COMPLICATIONS Qualifiers: Diabetes mellitus type: type 2 Diabetes mellitus complication status: with unspecified complications (4) ESRD (end stage renal disease) on dialysis Code(s): N18.6 - END STAGE RENAL DISEASE Z99.2 - DEPENDENCE ON RENAL DIALYSIS
--- NOTE | 2017-04-12 14:19 | CONSULT ---
Consult - text type - Consultation Consultation Note: Podiatry Consultation: 56 year old IDDM presents to hospital for admission for L foot diabetic ulcer and infection. Patient reports history of ulcer for "few weeks". Denies F/V/N/ C/SOB/CP. Patient seen by Dr. Gonzalez from vascular sx, had non-invasive arterial studies. Seen by vascular stuff, who recommended CTA to better assess circulation. Patient reports increased redness/swelling/drainage from ulcer site. Currently afebrile, VSS. EDELMIRA: L foot: palpable DP artery, non-palpable PT artery, CFT brisk to all toes. There is a dorsal 1st MTPJ necrotic ulcer with purulence expressed, (+) probing to bone, fluctuance present, moderate periwound erythema and edema to the midfoot, no soft tissue crepitus, no lymphangitis. WBC: 10.9 Wound Cx: group D strep, GNB, MSSA Blood Cx: no growth x 48 hrs ESR: 120 L foot XR: moderate ST swelling without evidence of soft tissue air Imp: 56 year old IDDM M with L DM foot necrotic ulcer, cellulitis and clinical osteomyelitis 1. IV abx per ID 2. Local wound care with bactroban 3. Discussed with patient at length that he will likely need amputation given clinical appearance of ulcer 4. Vascular f/u with Dr. Villafuerte. May need revascularization. 5. Will follow. Thank you for the courtesy of this consultation. Deja Rodrigues DPM
[2017-04-12] MEDS: MUPIROCIN 2% TOPICAL OINTMENT 22 GM TUBE TP SCH ×2 (14:34→22:04)
[2017-04-12] MEDS: ATORVASTATIN CA 10 MG TABLET (FP) PO SCH (22:01)
[2017-04-12] MEDS: INSULIN DETEMIR 100 UNITS/ML MDV SQ SCH (22:39)
[2017-04-13] MEDS: ZOLPIDEM TARTRATE 5 MG TABLET PO PRN (00:01)
[2017-04-13] MEDS: CLINDAMYCIN 600MG PREMIX IVPB 50 ML IVPB SCH ×3 (02:02→17:14)
[2017-04-13] MEDS: METOCLOPRAMIDE HCL 10 MG TABLET (FP) PO SCH ×3 (06:15→17:15)
[2017-04-13] MEDS: INSULIN SLIDING SCALE (NOVOLOG) 1 VIAL SQ SCH ×3 (06:15→17:15)
[2017-04-13] MEDS: INSULIN (NOVOLOG MIX 70/30) 100 UNITS/ML MDV SQ SCH ×2 (06:16→17:16)
[2017-04-13] MEDS: CALCIUM ACETATE 667 MG CAPSULE (FP) PO SCH ×3 (08:18→17:15)
[2017-04-13] MEDS: METOPROLOL TARTRATE 25 MG TABLET (FP) PO SCH ×2 (09:07→23:06)
[2017-04-13] MEDS: SUCRALFATE 1 GM/10 ML UNIT DOSE CUPS PO SCH ×4 (09:07→23:06)
[2017-04-13] MEDS: amLODIPine BESYLATE 10 MG TABLET (FP) PO SCH (09:07)
[2017-04-13] MEDS: PANTOPRAZOLE 40 MG TABLET (FP) PO SCH ×2 (09:07→23:06)
[2017-04-13] MEDS: LOSARTAN POTASSIUM 50 MG TABLET (FP) PO SCH (09:07)
[2017-04-13] MEDS: RIVAROXABAN 15 MG TABLET PO SCH (09:24)
[2017-04-13] MEDS ORDERED: CEFTAZIDIME PENTAHYDRATE 0.5 GM in DEXTROSE 5%-WATER - 50 ML IVPB SCH (10:00)
--- NOTE | 2017-04-13 12:34 | PN ---
Progress Note (short form) - Note Progress Note: pt seen/ examined today comfortable all f/u noted s/p debrigment Vital Signs Temp 98.1 F 04/13/17 06:15 Pulse 76 04/13/17 06:15 Resp 20 04/13/17 06:15 BP 148/76 04/13/17 06:15 Pulse Ox 95 04/12/17 21:00 Intake & Output 04/12/17 04/13/17 04/13/17 23:59 11:59 23:59 Intake Total 450 50 Balance 450 50 Intake: IVPB 150 50 Oral 300 Other: Voiding Method Toilet Toilet Bowel Movement Yes # Bowel Movements 1 Active Medications Acetaminophen (Tylenol -) 650 mg PO Q4H PRN PRN Reason: PAIN Last Admin: 04/12/17 13:01 Dose: 650 mg Albuterol Sulfate (Ventolin 0.083% Nebulizer Soln -) 1 amp NEB Q4H PRN PRN Reason: SHORT OF BREATH/WHEEZING Amlodipine Besylate (Norvasc -) 10 mg PO DAILY [facility] Last Admin: 04/13/17 09:07 Dose: 10 mg Atorvastatin Calcium (Lipitor -) 10 mg PO HS [facility] Last Admin: 04/12/17 22:01 Dose: 10 mg Calcium Acetate (Phoslo -) 667 mg PO TIDCM [facility] Last Admin: 04/13/17 12:10 Dose: 667 mg Piperacillin Sod/Tazobactam (Sod 2.25 gm/ Dextrose) 50 mls @ 100 mls/hr IVPB Q8H-IV [facility] PRN Reason: Protocol Clindamycin Phosphate (Cleocin 600 Mg Premix Ivpb -) 50 mls @ 100 mls/hr IVPB Q8H-IV [facility] Last Admin: 04/13/17 09:07 Dose: 100 mls/hr Ceftazidime 0.5 gm/ Dextrose 50 mls @ 100 mls/hr IVPB DAILY [facility] PRN Reason: Protocol Stop: 04/17/17 12:00 Last Admin: 04/13/17 09:48 Dose: 100 mls/hr Insulin Aspart (Novolog Vial Sliding Scale -) 1 vial SQ TIDAC [facility] PRN Reason: Protocol Last Admin: 04/13/17 12:11 Dose: 2 units Insulin Aspart (Novolog Mix 70/30 Vial) 30 units SQ BIDI [facility] Losartan Potassium (Cozaar -) 50 mg PO DAILY [facility] Last Admin: 04/13/17 09:07 Dose: 50 mg Metoclopramide HCl (Reglan -) 5 mg PO TIDAC [facility] Last Admin: 04/13/17 12:10 Dose: 5 mg Metoprolol Tartrate (Lopressor -) 25 mg PO BID [facility] Last Admin: 04/13/17 09:07 Dose: 25 mg Mupirocin (Bactroban 2% Ointment -) 1 applic TP BID [facility] Last Admin: 04/12/17 22:04 Dose: 1 applic Oxycodone HCl (Roxicodone -) 10 mg PO Q4H PRN PRN Reason: PAIN Last Admin: 04/12/17 13:00 Dose: 10 mg Pantoprazole Sodium (Protonix -) 40 mg PO BID [facility] Last Admin: 04/13/17 09:07 Dose: 40 mg Rivaroxaban (Xarelto -) 15 mg PO DAILY [facility] Last Admin: 04/13/17 09:24 Dose: 15 mg Sucralfate (Carafate Oral Suspension -) 1 gm PO QID [facility] Last Admin: 04/13/17 09:07 Dose: 1 gm Zolpidem Tartrate (Ambien -) 5 mg PO HS [facility] Last Admin: 04/13/17 00:01 Dose: 5 mg CBC, BMP 04/10/17 14:45 04/11/17 01:30 Microbiology 04/10/17 15:45 Gram Stain - Final Foot - Left Wound Culture - Preliminary Klebsiella Pneumoniae Escherichia Coli Group D Strep Or Entero Coccus Staphylococcus Aureus 04/09/17 21:00 Blood Culture - Preliminary Blood - Peripheral Venous NO GROWTH OBTAINED AFTER 72 HOURS, INCUBATION TO CONTINUE FOR 2 DAYS. 04/09/17 21:00 Blood Culture - Preliminary Blood - Peripheral Venous NO GROWTH OBTAINED AFTER 72 HOURS, INCUBATION TO CONTINUE FOR 2 DAYS. Physical Examination Constitutional: Yes: No Distress, Calm Cardiovascular: Yes: Regular Rate and Rhythm Respiratory: Yes: Diminished Gastrointestinal: Yes: Normal Bowel Sounds, Soft, Abdomen, Obese. No: Distention, Tenderness Edema: Yes Edema: LLE: 2+, RLE: 1+ Wound/Incision: Yes: dressing + Neurological: Yes: Alert, Oriented Labs: Imaging - Results X-ray: Report Reviewed EKG: Image Reviewed (NSR) Assessment/Plan Non healing Left foot ulcer Diabetes ESRD on HD PAD HTN CAD -- iv antibiotics --i/d / podiatry/ vascular on case -- -- HD per Renal -- continue with diabetic control -- DVT prophylaxis-- Heparin sc -- aortogram -pending report - discussed with Dr. Isaac - scheduled for friday - xarelto to be held - will start on lovenox -pt dont know why he is on xarelto-- will discuss with his pmd tomorrow - decrease insulin 70/30 and d/c levemir as sugar running low - will follow Problem List - Problems (1) Anemia associated with chronic renal failure Code(s): D63.1 - ANEMIA IN CHRONIC KIDNEY DISEASE (2) Cellulitis of right foot Code(s): L03.115 - CELLULITIS OF RIGHT LOWER LIMB (3) Diabetes Code(s): E11.9 - TYPE 2 DIABETES MELLITUS WITHOUT COMPLICATIONS Qualifiers: Diabetes mellitus type: type 2 Diabetes mellitus complication status: with unspecified complications (4) ESRD (end stage renal disease) on dialysis Code(s): N18.6 - END STAGE RENAL DISEASE Z99.2 - DEPENDENCE ON RENAL DIALYSIS
--- NOTE | 2017-04-13 13:03 | PN ---
Progress Note (short form) - Note Progress Note: Podiatry F/U: Seen/evaluated at bedside, NAD. Pain improved to L foot, denies F/V/N/C/SOB/ CP. AFebrile, VSS. EDELMIRA: L foot: dorsal 1st MTPJ necrotic ulcer with underlying fibrotic base, probing to bone, less purulence from ulcer, no soft tissue crepitus, no fluctuance, decreasing periwound erythema, no signs of ischemic changes, no streaking cellulitis. No tenderness to palpation. WBC: 10.9 ESR: 120 CTA: report pending L foot XR: no evidence of soft tissue emphysema Wound Cx: klebsiella, group d strep, E. coli, MSSA Imp: 56 year old IDDM M with L foot diabetic ulcer, osteomyelitis 1. IV abx per ID 2. Local wound care 3. Discussed with Dr. Gonzalez, will proceed with foot surgery. He will check CTA tomorrow. 4. Discussed treatment options at length with patient. He is refusing amputation of the great toe at this time. I discussed with the patient the risk of worsening of ulcer, worsening of infection, and potential for amputation in the future. He fully understands and wishes to avoid amputation at this time. 5. Please stop jen today in preparation for surgery Friday. 6. Will plan for debridement/lavage, first metatarsal head resection Friday. 7. Will follow. Deja Rodrigues DPM
[2017-04-13] MEDS: MUPIROCIN 2% TOPICAL OINTMENT 22 GM TUBE TP SCH ×2 (15:23→23:05)
--- NOTE | 2017-04-13 19:13 | PN ---
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 Patient presently prefers wound debridement. He states that he is feeling much better. Vitals: BP Vital Signs (72 hours) 04/10/17 04/10/17 04/10/17 19:32 21:00 21:25 Temperature 98 F Pulse Rate 75 73 Respiratory 18 18 18 Rate Blood Pressure 153/71 129/71 O2 Sat by Pulse 97 Oximetry (%) 04/10/17 04/10/17 04/10/17 21:35 22:05 22:35 Temperature Pulse Rate 78 73 65 Respiratory 18 18 18 Rate Blood Pressure 152/76 165/74 167/74 O2 Sat by Pulse Oximetry (%) 04/10/17 04/10/17 04/11/17 23:05 23:35 00:05 Temperature Pulse Rate 69 67 44 L Respiratory 18 18 18 Rate Blood Pressure 162/85 149/58 155/71 O2 Sat by Pulse Oximetry (%) 04/11/17 04/11/17 04/11/17 00:35 01:05 01:20 Temperature Pulse Rate 74 71 78 Respiratory 18 18 18 Rate Blood Pressure 140/65 151/67 157/68 O2 Sat by Pulse Oximetry (%) 04/11/17 04/11/17 04/11/17 06:00 09:39 15:13 Temperature 98 F 98.3 F 97.4 F L Pulse Rate 76 81 77 Respiratory 18 20 20 Rate Blood Pressure 149/69 139/65 134/70 O2 Sat by Pulse Oximetry (%) 04/11/17 04/11/17 04/11/17 18:06 21:00 22:00 Temperature 97.8 F 98 F Pulse Rate 69 77 Respiratory 20 20 20 Rate Blood Pressure 135/69 146/71 O2 Sat by Pulse 95 Oximetry (%) 04/12/17 04/12/17 04/12/17 05:48 07:45 07:50 Temperature 97.8 F 98.2 F Pulse Rate 68 60 62 Respiratory 20 18 18 Rate Blood Pressure 133/68 124/52 122/58 O2 Sat by Pulse Oximetry (%) 04/12/17 04/12/17 04/12/17 08:20 08:50 09:00 Temperature Pulse Rate 71 70 Respiratory 18 18 20 Rate Blood Pressure 113/60 123/59 O2 Sat by Pulse 95 Oximetry (%) 04/12/17 04/12/17 04/12/17 09:20 09:50 10:20 Temperature Pulse Rate 78 70 67 Respiratory 18 18 18 Rate Blood Pressure 136/66 130/60 149/70 O2 Sat by Pulse Oximetry (%) 04/12/17 04/12/17 04/12/17 10:50 11:20 11:50 Temperature Pulse Rate 62 60 66 Respiratory 18 18 18 Rate Blood Pressure 133/78 135/72 132/74 O2 Sat by Pulse Oximetry (%) 04/12/17 04/12/17 04/12/17 12:45 14:21 19:48 Temperature 97.8 F 97.3 F L 97.8 F Pulse Rate 85 73 76 Respiratory 20 20 20 Rate Blood Pressure 160/66 156/67 148/75 O2 Sat by Pulse Oximetry (%) 04/12/17 04/12/17 04/13/17 21:00 22:00 06:15 Temperature 98 F 98.1 F Pulse Rate 76 76 Respiratory 20 20 Rate Blood Pressure 149/77 148/76 O2 Sat by Pulse 95 Oximetry (%) 04/13/17 04/13/17 09:00 14:24 Temperature 98 F 97.6 F Pulse Rate 65 64 Respiratory 20 20 Rate Blood Pressure 128/70 127/61 O2 Sat by Pulse 95 Oximetry (%) Lungs; clear to auscultation Heart: S1 S2 Regular Abd: Full, soft, non-tender, BS normal Ext: Left foot dressing in place, 1+ edema of the left leg Access: positive bruit right arm AV graft. Labs; CBCD WBC 10.9 K/mm3 (4.0-10.0) H D 04/10/17 14:45 RBC 3.16 M/mm3 (4.00-5.60) L 04/10/17 14:45 Hgb 8.9 GM/dL (11.7-16.9) L 04/10/17 14:45 Hct 27.8 % (35.4-49) L 04/10/17 14:45 MCV 88.0 fl (80-96) 04/10/17 14:45 MCHC 32.0 g/dl (32.0-35.9) 04/10/17 14:45 RDW 17.6 % (11.9-15.9) H 04/10/17 14:45 Plt Count 205 K/MM3 (134-434) 04/10/17 14:45 MPV 9.1 fl (7.5-11.1) 04/10/17 14:45 CMP Sodium 135 mmol/L (136-145) L 04/10/17 14:45 Potassium 6.0 mmol/L (3.5-5.1) H 04/10/17 14:45 Chloride 98 mmol/L (98-107) 04/10/17 14:45 Carbon Dioxide 24 mmol/L (21-32) 04/10/17 14:45 Anion Gap 13 (8-16) 04/10/17 14:45 BUN 27 mg/dL (7-18) H D 04/11/17 01:30 Creatinine 3.4 mg/dL (0.7-1.3) H D 04/11/17 01:30 Creat Clearance w eGFR 6.79 (>60) 04/10/17 14:45 Calcium 7.9 mg/dL (8.5-10.1) L 04/10/17 14:45 Total Bilirubin 0.5 mg/dL (0.2-1.0) D 04/10/17 14:45 AST 20 U/L (15-37) D 04/10/17 14:45 ALT 32 U/L (12-78) 04/10/17 14:45 Alkaline Phosphatase 229 U/L (45-117) H 04/10/17 14:45 Total Protein 7.8 g/dl (6.4-8.2) 04/10/17 14:45 Albumin 2.9 g/dl (3.4-5.0) L 04/10/17 14:45 A/P: 56 year old man with end stage renal disease admitted with left foot gangrene. Patient is tentatively for debridement on Friday. Advised to keep the left foot elevated. 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
[2017-04-13] MEDS: ATORVASTATIN CA 10 MG TABLET (FP) PO SCH (23:06)
[2017-04-13] MEDS: ACETAMINOPHEN 325 MG TABLET (FP) PO PRN (23:08)
[2017-04-14] MEDS: CLINDAMYCIN 600MG PREMIX IVPB 50 ML IVPB SCH ×2 (01:06→09:28)
[2017-04-14] MEDS: METOCLOPRAMIDE HCL 10 MG TABLET (FP) PO SCH ×3 (06:03→16:26)
[2017-04-14] MEDS: INSULIN (NOVOLOG MIX 70/30) 100 UNITS/ML MDV SQ SCH ×2 (06:04→16:25)
[2017-04-14] MEDS: INSULIN SLIDING SCALE (NOVOLOG) 1 VIAL SQ SCH ×3 (06:05→16:25)
[2017-04-14] MEDS: oxyCODONE HCL 5 MG TABLET PO PRN ×2 (06:25→21:59)
[2017-04-14] MEDS: ACETAMINOPHEN 325 MG TABLET (FP) PO PRN ×2 (06:25→22:00)
[2017-04-14] MEDS ORDERED: PT OWN MED DRAWER 7, Y5N ONE (09:22)
[2017-04-14] MEDS: SUCRALFATE 1 GM/10 ML UNIT DOSE CUPS PO SCH ×4 (09:28→21:58)
[2017-04-14] MEDS: PANTOPRAZOLE 40 MG TABLET (FP) PO SCH ×2 (09:28→21:59)
[2017-04-14] MEDS: amLODIPine BESYLATE 10 MG TABLET (FP) PO SCH (09:28)
[2017-04-14] MEDS: METOPROLOL TARTRATE 25 MG TABLET (FP) PO SCH ×2 (09:28→21:59)
[2017-04-14] MEDS: LOSARTAN POTASSIUM 50 MG TABLET (FP) PO SCH (09:28)
[2017-04-14] MEDS: CALCIUM ACETATE 667 MG CAPSULE (FP) PO SCH ×3 (09:29→17:47)
[2017-04-14] MEDS: MUPIROCIN 2% TOPICAL OINTMENT 22 GM TUBE TP SCH ×2 (09:37→23:21)
--- NOTE | 2017-04-14 09:58 | PN ---
Progress Note, Physician Chief Complaint: ID Clindamycn and Ceftazidime Surgical progress notes reviewed with necrotic wound probed to bone c/w osteo - Current Medication List Current Medications: Active Medications Acetaminophen (Tylenol -) 650 mg PO Q4H PRN PRN Reason: PAIN Last Admin: 04/14/17 06:25 Dose: 650 mg Albuterol Sulfate (Ventolin 0.083% Nebulizer Soln -) 1 amp NEB Q4H PRN PRN Reason: SHORT OF BREATH/WHEEZING Amlodipine Besylate (Norvasc -) 10 mg PO DAILY [facility] Last Admin: 04/14/17 09:28 Dose: 10 mg Atorvastatin Calcium (Lipitor -) 10 mg PO HS [facility] Last Admin: 04/13/17 23:06 Dose: 10 mg Calcium Acetate (Phoslo -) 667 mg PO TIDCM [facility] Last Admin: 04/14/17 09:29 Dose: 667 mg Enoxaparin Sodium (Lovenox -) 40 mg SQ DAILY [facility] Clindamycin Phosphate (Cleocin 600 Mg Premix Ivpb -) 50 mls @ 100 mls/hr IVPB Q8H-IV [facility] Last Admin: 04/14/17 09:28 Dose: 100 mls/hr Ceftazidime 0.5 gm/ Dextrose 50 mls @ 100 mls/hr IVPB DAILY [facility] PRN Reason: Protocol Stop: 04/17/17 12:00 Last Admin: 04/13/17 09:48 Dose: 100 mls/hr Insulin Aspart (Novolog Vial Sliding Scale -) 1 vial SQ TIDAC [facility] PRN Reason: Protocol Last Admin: 04/14/17 06:05 Dose: Not Given Insulin Aspart (Novolog Mix 70/30 Vial) 30 units SQ BIDI [facility] Last Admin: 04/14/17 06:04 Dose: Not Given Losartan Potassium (Cozaar -) 50 mg PO DAILY [facility] Last Admin: 04/14/17 09:28 Dose: 50 mg Metoclopramide HCl (Reglan -) 5 mg PO TIDAC [facility] Last Admin: 04/14/17 06:03 Dose: 5 mg Metoprolol Tartrate (Lopressor -) 25 mg PO BID [facility] Last Admin: 04/14/17 09:28 Dose: 25 mg Mupirocin (Bactroban 2% Ointment -) 1 applic TP BID [facility] Last Admin: 04/14/17 09:37 Dose: 1 applic Oxycodone HCl (Roxicodone -) 10 mg PO Q4H PRN PRN Reason: PAIN Last Admin: 04/14/17 06:25 Dose: 10 mg Pantoprazole Sodium (Protonix -) 40 mg PO BID [facility] Last Admin: 04/14/17 09:28 Dose: 40 mg Rivaroxaban (Xarelto -) 15 mg PO DAILY [facility] Last Admin: 04/13/17 09:24 Dose: 15 mg Sucralfate (Carafate Oral Suspension -) 1 gm PO QID [facility] Last Admin: 04/14/17 09:28 Dose: 1 gm Zolpidem Tartrate (Ambien -) 5 mg PO HS [facility] Last Admin: 04/13/17 00:01 Dose: 5 mg - Objective Vital Signs: Vital Signs Temperature 97.7 F 04/14/17 09:27 Pulse Rate 65 04/14/17 09:27 Respiratory Rate 20 04/14/17 09:27 Blood Pressure 136/71 04/14/17 09:27 O2 Sat by Pulse Oximetry (%) 95 04/13/17 21:00 Constitutional: Yes: Well Nourished, No Distress HENT: Yes: WNL, Atraumatic Neck: Yes: WNL, Supple Cardiovascular: Yes: Regular Rate and Rhythm, S1, S2. No: Murmur Respiratory: Yes: WNL, Regular, CTA Bilaterally Gastrointestinal: Yes: Soft. No: Tenderness, Epigastrium, Tenderness, Rebound Extremities: Yes: Other (AVF right) Labs: CBC, BMP 04/10/17 14:45 04/11/17 01:30 INR, PTT INR 1.10 (0.82-1.09) 04/11/17 03:00 Problem List - Problems (1) Diabetes Code(s): E11.9 - TYPE 2 DIABETES MELLITUS WITHOUT COMPLICATIONS Qualifiers: Diabetes mellitus type: type 2 Diabetes mellitus complication status: with unspecified complications (2) ESRD (end stage renal disease) on dialysis Code(s): N18.6 - END STAGE RENAL DISEASE Z99.2 - DEPENDENCE ON RENAL DIALYSIS (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 Assessment/Plan Microbiology 04/10/17 15:45 Foot - Left Gram Stain - Final 04/10/17 15:45 Foot - Left Wound Culture - Final Klebsiella Pneumoniae Escherichia Coli Enterococcus Faecalis Staphylococcus Aureus 04/09/17 21:00 Blood - Peripheral Venous Blood Culture - Preliminary NO GROWTH OBTAINED AFTER 96 HOURS, INCUBATION TO CONTINUE FOR 1 DAYS. 04/09/17 21:00 Blood - Peripheral Venous Blood Culture - Preliminary NO GROWTH OBTAINED AFTER 96 HOURS, INCUBATION TO CONTINUE FOR 1 DAYS. Laboratory Tests 04/11/17 04/11/17 03:00 03:00 ESR 120 H C-Reactive Protein 7.5 H Assessment Necrotic LE wound with osteo suspected Plan Based on wound c/s switch to Zosyn bid Determine surgical plan of action Kindly recall once plan for surgery carried foward as for now nothing more to be done except continue radha Leal MD
[2017-04-14] MEDS ORDERED: ENOXAPARIN NA (PORCINE) 40 MG/0.4 ML DISP.SYRIN SQ SCH (10:00)
[2017-04-14] MEDS: PIPERACILLIN/TAZOB 2.25 GM 50 ML IVPB SCH ×2 (10:53→21:59)
[2017-04-14] MEDS ORDERED: INSULIN (NOVOLOG) ASPART 100 UNITS/ML 10ML VIAL ONE (11:20)
--- NOTE | 2017-04-14 11:37 | PN ---
Progress Note (short form) - Note Progress Note: pt seen/ examined today comfortable all f/u noted scheduled for or tomorrow i/d f/u noted Vital Signs Temp 97.7 F 04/14/17 09:27 Pulse 65 04/14/17 09:27 Resp 20 04/14/17 09:27 BP 136/71 04/14/17 09:27 Pulse Ox 95 04/13/17 21:00 Intake & Output 04/13/17 04/13/17 04/14/17 11:59 23:59 11:59 Intake Total 50 300 250 Balance 50 300 250 Intake: IVPB 50 150 50 Oral 150 200 Other: Voiding Method Toilet Toilet Toilet Bowel Movement No Active Medications Acetaminophen (Tylenol -) 650 mg PO Q4H PRN PRN Reason: PAIN Last Admin: 04/12/17 13:01 Dose: 650 mg Albuterol Sulfate (Ventolin 0.083% Nebulizer Soln -) 1 amp NEB Q4H PRN PRN Reason: SHORT OF BREATH/WHEEZING Amlodipine Besylate (Norvasc -) 10 mg PO DAILY [facility] Last Admin: 04/13/17 09:07 Dose: 10 mg Atorvastatin Calcium (Lipitor -) 10 mg PO HS [facility] Last Admin: 04/12/17 22:01 Dose: 10 mg Calcium Acetate (Phoslo -) 667 mg PO TIDCM [facility] Last Admin: 04/13/17 12:10 Dose: 667 mg Piperacillin Sod/Tazobactam (Sod 2.25 gm/ Dextrose) 50 mls @ 100 mls/hr IVPB Q8H-IV [facility] PRN Reason: Protocol Clindamycin Phosphate (Cleocin 600 Mg Premix Ivpb -) 50 mls @ 100 mls/hr IVPB Q8H-IV [facility] Last Admin: 04/13/17 09:07 Dose: 100 mls/hr Ceftazidime 0.5 gm/ Dextrose 50 mls @ 100 mls/hr IVPB DAILY [facility] PRN Reason: Protocol Stop: 04/17/17 12:00 Last Admin: 04/13/17 09:48 Dose: 100 mls/hr Insulin Aspart (Novolog Vial Sliding Scale -) 1 vial SQ TIDAC [facility] PRN Reason: Protocol Last Admin: 04/13/17 12:11 Dose: 2 units Insulin Aspart (Novolog Mix 70/30 Vial) 30 units SQ BIDI [facility] Losartan Potassium (Cozaar -) 50 mg PO DAILY [facility] Last Admin: 04/13/17 09:07 Dose: 50 mg Metoclopramide HCl (Reglan -) 5 mg PO TIDAC [facility] Last Admin: 04/13/17 12:10 Dose: 5 mg Metoprolol Tartrate (Lopressor -) 25 mg PO BID [facility] Last Admin: 04/13/17 09:07 Dose: 25 mg Mupirocin (Bactroban 2% Ointment -) 1 applic TP BID [facility] Last Admin: 04/12/17 22:04 Dose: 1 applic Oxycodone HCl (Roxicodone -) 10 mg PO Q4H PRN PRN Reason: PAIN Last Admin: 04/12/17 13:00 Dose: 10 mg Pantoprazole Sodium (Protonix -) 40 mg PO BID [facility] Last Admin: 04/13/17 09:07 Dose: 40 mg Rivaroxaban (Xarelto -) 15 mg PO DAILY [facility] Last Admin: 04/13/17 09:24 Dose: 15 mg Sucralfate (Carafate Oral Suspension -) 1 gm PO QID [facility] Last Admin: 04/13/17 09:07 Dose: 1 gm Zolpidem Tartrate (Ambien -) 5 mg PO HS [facility] Last Admin: 04/13/17 00:01 Dose: 5 mg CBC,CMP WBC 10.9 K/mm3 (4.0-10.0) H D 04/10/17 14:45 RBC 3.16 M/mm3 (4.00-5.60) L 04/10/17 14:45 Hgb 8.9 GM/dL (11.7-16.9) L 04/10/17 14:45 Hct 27.8 % (35.4-49) L 04/10/17 14:45 MCV 88.0 fl (80-96) 04/10/17 14:45 MCH 28.2 pg (25.7-33.7) 04/10/17 14:45 MCHC 32.0 g/dl (32.0-35.9) 04/10/17 14:45 RDW 17.6 % (11.9-15.9) H 04/10/17 14:45 Plt Count 205 K/MM3 (134-434) 04/10/17 14:45 MPV 9.1 fl (7.5-11.1) 04/10/17 14:45 Total Counted 100 04/10/17 14:45 Neutrophils % No Result Required. 04/10/17 14:45 Neutrophils % (Manual) 75 % (42.8-82.8) 04/10/17 14:45 Lymphocytes % No Result Required. 04/10/17 14:45 Lymphocytes % (Manual) 10 % (8-40) 04/10/17 14:45 Monocytes % 10.9 % (3.8-10.2) H 04/09/17 18:20 Monocytes % (Manual) 9 % (3.8-10.2) 04/10/17 14:45 Eosinophils % 1.0 % (0-4.5) 04/09/17 18:20 Eosinophils % (Manual) 4 % (0-4.5) 04/10/17 14:45 Basophils % 0.6 % (0-2.0) 04/09/17 18:20 Basophils % (Manual) 1 % (0-2.0) 04/10/17 14:45 Other Cell Type 04/10/17 14:45 Platelet Estimate Adequate (NORMAL) 04/10/17 14:45 Platelet Comment Few giant plts 04/10/17 14:45 Platelet Comment No clumping noted 04/10/17 14:45 ESR 120 mm/hr (0-20) H 04/11/17 03:00 Sodium 135 mmol/L (136-145) L 04/10/17 14:45 Potassium 6.0 mmol/L (3.5-5.1) H 04/10/17 14:45 Chloride 98 mmol/L (98-107) 04/10/17 14:45 Carbon Dioxide 24 mmol/L (21-32) 04/10/17 14:45 Anion Gap 13 (8-16) 04/10/17 14:45 BUN 27 mg/dL (7-18) H D 04/11/17 01:30 Creatinine 3.4 mg/dL (0.7-1.3) H D 04/11/17 01:30 Creat Clearance w eGFR 6.79 (>60) 04/10/17 14:45 POC Glucometer 113 UNITS (()) 04/14/17 06:01 Random Glucose 128 mg/dL (74-106) H D 04/10/17 14:45 Calcium 7.9 mg/dL (8.5-10.1) L 04/10/17 14:45 Total Bilirubin 0.5 mg/dL (0.2-1.0) D 04/10/17 14:45 AST 20 U/L (15-37) D 04/10/17 14:45 ALT 32 U/L (12-78) 04/10/17 14:45 Alkaline Phosphatase 229 U/L (45-117) H 04/10/17 14:45 C-Reactive Protein 7.5 MG/DL (0.00-0.3) H 04/11/17 03:00 Total Protein 7.8 g/dl (6.4-8.2) 04/10/17 14:45 Albumin 2.9 g/dl (3.4-5.0) L 04/10/17 14:45 Microbiology 04/09/17 21:00 Blood Culture - Preliminary Blood - Peripheral Venous NO GROWTH OBTAINED AFTER 96 HOURS, INCUBATION TO CONTINUE FOR 1 DAYS. 04/09/17 21:00 Blood Culture - Preliminary Blood - Peripheral Venous NO GROWTH OBTAINED AFTER 96 HOURS, INCUBATION TO CONTINUE FOR 1 DAYS. 04/10/17 15:45 Gram Stain - Final Foot - Left Wound Culture - Final Klebsiella Pneumoniae Escherichia Coli Enterococcus Faecalis Staphylococcus Aureus Physical Examination Constitutional: Yes: No Distress, Calm Cardiovascular: Yes: Regular Rate and Rhythm Respiratory: Yes: Diminished Gastrointestinal: Yes: Normal Bowel Sounds, Soft, Abdomen, Obese. No: Distention, Tenderness Edema: Yes Edema: LLE: 2+, RLE: 1+ Wound/Incision: Yes: dressing + Neurological: Yes: Alert, Oriented Labs: Imaging - Results X-ray: Report Reviewed EKG: Image Reviewed (NSR) Assessment/Plan Non healing Left foot ulcer-- possible osteo Diabetes ESRD on HD PAD HTN CAD -- iv antibiotics --i/d / podiatry/ vascular on case -- -- HD per Renal -- continue with diabetic control - monitor -- DVT prophylaxis-- Heparin sc -- aortogram -still pending report - discussed with Dr. Isaac yesterday - scheduled for or - Friday - xarelto held - lovenox today and then d/c -pt was on xarelto for pvd - will follow - discussed with nursing staff. Problem List - Problems (1) Anemia associated with chronic renal failure Code(s): D63.1 - ANEMIA IN CHRONIC KIDNEY DISEASE (2) Cellulitis of right foot Code(s): L03.115 - CELLULITIS OF RIGHT LOWER LIMB (3) Diabetes Code(s): E11.9 - TYPE 2 DIABETES MELLITUS WITHOUT COMPLICATIONS Qualifiers: Diabetes mellitus type: type 2 Diabetes mellitus complication status: with unspecified complications (4) ESRD (end stage renal disease) on dialysis Code(s): N18.6 - END STAGE RENAL DISEASE Z99.2 - DEPENDENCE ON RENAL DIALYSIS Problem List - Problems (1) Anemia associated with chronic renal failure Code(s): D63.1 - ANEMIA IN CHRONIC KIDNEY DISEASE (2) Cellulitis of right foot Code(s): L03.115 - CELLULITIS OF RIGHT LOWER LIMB (3) Diabetes Code(s): E11.9 - TYPE 2 DIABETES MELLITUS WITHOUT COMPLICATIONS Qualifiers: Diabetes mellitus type: type 2 Diabetes mellitus complication status: with unspecified complications (4) ESRD (end stage renal disease) on dialysis Code(s): N18.6 - END STAGE RENAL DISEASE Z99.2 - DEPENDENCE ON RENAL DIALYSIS
--- NOTE | 2017-04-14 11:46 | PN ---
Progress Note (short form) - Note Progress Note: Podiatry: Seen/evaluated at bedside, NAD. Pain controlled, denies F/V/N/C/SOB/CP. AFebrile, VSS. EDELMIRA: L foot: palpable dorsalis pedis pulse. There is a dorsal first MTPJ diabetic ulcer, mostly fibrotic, probing to bone, minimal purulence, no ascending cellulitis, no signs of acute infection. No tenderness to palpation. ESR: 120 Blood Cx: no growth x 96 hrs Wound Cx: klebsiella, e.coli, MSSA, enterococcus Imp: 56 year old DM M with left foot diabetic ulcer, osteomyelitis 1. IV abx 2. Local wound care 3. Discussed at length with patient regarding tx options. He is still refusing amputation of hallux at this time and I have advised pt of risks of recurrence of infection and possible need for amputation in the future. He understands this completely. 4. Plan for debridement/lavage, first metatarsal head resection tomorrow. NPO midnight. Deja Rodrigues DPM
[2017-04-14 17:53] LABS: MCH 28.1 pg (25.7-33.7); MCHC 32.3 g/dl (32.0-35.9); MEAN PLT VOLUME 8.5 fl (7.5-11.1); PLATELET COUNT 217 K/MM3 (134-434); RDW 17.6 % (11.9-15.9); WHITE BLOOD COUNT 4.7 K/mm3 (4.0-10.0)
--- NOTE | 2017-04-14 18:29 | PN ---
Progress Note (short form) - Note Progress Note: 56 WITH DM ESRD PVD RT ARM GRAFT IN WITH LEFT FORE FOOT DORSAL INFECTED ULCER ON IV ABX DIALYZED SAT FEELS OK CHECK CLEAR EXT 1 + EDEMA LABS REVIEWED HD IN AM PRE OR HD NURSE AWARE
[2017-04-14 18:32] LABS: ANION GAP 13 (8-16); CALCIUM 7.4 mg/dL (8.5-10.1); CO2 28 mmol/L (21-32); GLUCOSE,RANDOM 235 mg/dL (74-106)
[2017-04-14 18:42] LABS: CREATININE 9.5 mg/dL (0.7-1.3)
[2017-04-14] MEDS: ZOLPIDEM TARTRATE 5 MG TABLET PO PRN (21:59)
[2017-04-14] MEDS: ATORVASTATIN CA 10 MG TABLET (FP) PO SCH (21:59)
[2017-04-15] MEDS: INSULIN SLIDING SCALE (NOVOLOG) 1 VIAL SQ SCH ×3 (06:14→16:45)
[2017-04-15] MEDS: INSULIN (NOVOLOG MIX 70/30) 100 UNITS/ML MDV SQ SCH (06:14)
[2017-04-15] MEDS: METOCLOPRAMIDE HCL 10 MG TABLET (FP) PO SCH ×3 (06:15→16:44)
[2017-04-15] MEDS ORDERED: EPOETIN ALFA 20,000 UNIT/1 ML VIAL IVPUSH ONE (07:30)
[2017-04-15] MEDS: CALCIUM ACETATE 667 MG CAPSULE (FP) PO SCH ×3 (08:00→16:44)
[2017-04-15] MEDS: MUPIROCIN 2% TOPICAL OINTMENT 22 GM TUBE TP SCH ×2 (11:01→22:35)
[2017-04-15] MEDS: PANTOPRAZOLE 40 MG TABLET (FP) PO SCH ×2 (11:02→22:33)
[2017-04-15] MEDS: SUCRALFATE 1 GM/10 ML UNIT DOSE CUPS PO SCH ×4 (11:02→22:33)
[2017-04-15] MEDS ORDERED: PT OWN MED DRAWER 7, Y5N ONE (11:06)
[2017-04-15] MEDS: LOSARTAN POTASSIUM 50 MG TABLET (FP) PO SCH (11:08)
[2017-04-15] MEDS: METOPROLOL TARTRATE 25 MG TABLET (FP) PO SCH ×2 (11:08→22:33)
[2017-04-15] MEDS: PIPERACILLIN/TAZOB 2.25 GM 50 ML IVPB SCH ×2 (11:08→22:31)
[2017-04-15] MEDS: amLODIPine BESYLATE 10 MG TABLET (FP) PO SCH (11:08)
--- NOTE | 2017-04-15 11:22 | PN ---
Progress Note (short form) - Note Progress Note: scheduled for debridement today refusing amputation Selected Entries 04/15/17 06:45 Temperature 98.4 F Pulse Rate 64 Respiratory 18 Rate Blood Pressure 172/88 S1 S2 RRR Lungs clear Abd- soft, NT left foot- dressing in place PLAN for debridement iv antibiotics continue with meds HD per Renal
[2017-04-15] MEDS ORDERED: PROPOFOL 20 ML ONE ×4 (12:03)
[2017-04-15] MEDS ORDERED: LIDOCAINE HCL 1%, 10 MG/ML (20ML VIAL) ONE (12:22)
[2017-04-15] MEDS ORDERED: MIDAZOLAM HCL 2 MG/2 ML SINGLE DOSE VIAL ONE ×2 (12:24→12:49)
--- NOTE | 2017-04-15 12:32 | PN ---
Progress Note (short form) - Note Progress Note: Podiatry Pre-op: Risks, benefits, alternatives to surgery discussed at length with patient. Namely, recurrence of infection, worsening of ulcer and potential need for amputation or further debridement surgery. 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 Patient understands all, informed consent obtained, all questions answered. Plan for L foot debridement/lavage with metatarsal head resection. Deja Rodrigues DPM
[2017-04-15] MEDS ORDERED: LIDOCAINE HCL 1%, 10 MG/ML (20ML VIAL) INF ONE (12:46)
--- NOTE | 2017-04-15 14:02 | OP ---
Operative Note - Note: Operative Date: 04/15/17 Pre-Operative Diagnosis: L foot DM foot ulcer, cellulitis and osteomyelitis Operation: Left foot debridement of ulcer with first metatarsal head resection Post-Operative Diagnosis: Same as Pre-op Surgeon: Nico Rodrigues Anesthesia: Local, MAC Estimated Blood Loss (mls): 25 Instrument used (Debridements only): #15 blade scalpel Operative Report Dictated: Yes
[2017-04-15] MEDS ORDERED: ZOLPIDEM TARTRATE 5 MG TABLET PO PRN (14:19)
[2017-04-15] MEDS ORDERED: INSULIN (NOVOLOG MIX 70/30) 100 UNITS/ML MDV SQ SCH (16:30)
--- NOTE | 2017-04-15 18:42 | PN ---
Progress Note (short form) - Note Progress Note: S/p debridement today. CTA showed stenosis and possible occlusion of left popliteal and tibial arteries. I have scheduled angiogram tomorrow tomsee if distal flow can be improved.
[2017-04-15] MEDS ORDERED: ASPIRIN 81 MG CHEWABLE TABLETS PO SCH (18:45)
[2017-04-15] MEDS ORDERED: CLOPIDOGREL BISULFATE 75 MG TABLET (FP) PO SCH (18:45)
[2017-04-15] MEDS ORDERED: ATORVASTATIN CA 10 MG TABLET (FP) PO SCH (22:00)
[2017-04-15] MEDS: oxyCODONE HCL 5 MG TABLET PO PRN (22:31)
[2017-04-15] MEDS: ACETAMINOPHEN 325 MG TABLET (FP) PO PRN (22:32)
[2017-04-15] MEDS: CLOPIDOGREL BISULFATE 75 MG TABLET (FP) PO SCH (22:33)
[2017-04-15] MEDS: ASPIRIN 81 MG CHEWABLE TABLETS PO SCH (22:33)
[2017-04-16] MEDS: METOCLOPRAMIDE HCL 10 MG TABLET (FP) PO SCH ×3 (06:03→17:09)
[2017-04-16] MEDS: INSULIN SLIDING SCALE (NOVOLOG) 1 VIAL SQ SCH ×3 (06:03→17:07)
[2017-04-16] MEDS: CALCIUM ACETATE 667 MG CAPSULE (FP) PO SCH ×3 (08:16→17:08)
--- NOTE | 2017-04-16 08:19 | PN ---
Progress Note (short form) - Note Progress Note: 56 WITH DM ESRD PVD RT ARM GRAFT IN WITH LEFT FORE FOOT DORSAL INFECTED ULCER POD1 POST LEFT FOOT DEBRIDEMENT CASE D/W BRETT NEEDS REPEAT ANGIO TODAY TO SEE IF FLOW CAN BE INCREASED DISTALLY ON IV ABX ZOSYN DIALYZED TUES 3.5 KG REMOVED FEELS OK CHECK CLEAR EXT 1 + EDEMA LABS REVIEWED HD IN AM PRIOR TO DISCHARGE
[2017-04-16] MEDS: PIPERACILLIN/TAZOB 2.25 GM 50 ML IVPB SCH ×2 (09:15→21:45)
[2017-04-16] MEDS: PANTOPRAZOLE 40 MG TABLET (FP) PO SCH ×2 (09:16→21:44)
[2017-04-16] MEDS: METOPROLOL TARTRATE 25 MG TABLET (FP) PO SCH ×2 (09:16→21:44)
[2017-04-16] MEDS: SUCRALFATE 1 GM/10 ML UNIT DOSE CUPS PO SCH ×3 (09:17→21:43)
[2017-04-16] MEDS: oxyCODONE HCL 5 MG TABLET PO PRN ×4 (09:38→21:47)
[2017-04-16] MEDS: ACETAMINOPHEN 325 MG TABLET (FP) PO PRN ×3 (09:39→21:48)
[2017-04-16] MEDS ORDERED: amLODIPine BESYLATE 10 MG TABLET (FP) PO SCH (10:00)
[2017-04-16] MEDS ORDERED: LOSARTAN POTASSIUM 50 MG TABLET (FP) PO SCH (10:00)
[2017-04-16] MEDS: CLOPIDOGREL BISULFATE 75 MG TABLET (FP) PO SCH (10:25)
[2017-04-16] MEDS: ASPIRIN 81 MG CHEWABLE TABLETS PO SCH (10:25)
--- NOTE | 2017-04-16 10:58 | PN ---
Progress Note (short form) - Note Progress Note: Podiatry F/u: Seen/evaluated at bedside, NAD. Pain well controlled, denies F/V/N/C/SOB/CP. AFebrile, VSS. S/p L foot debridement with metatarsal head resection POD#1. Scheduled for angiogram with Dr. Gonzalez today. EDELMIRA: L foot: palpable dorsalis pedis pulse, non-palpable posterior tibial pulse. Dressing C/D/I, no active bleeding. Sutures well coapted proximal to ulcer. Post-surgical ulcer dorsal 1st MTPJ with underlying granular tissue, probes deep , no purulence, no fluctuance, no periwound erythema, no ascending cellulitis, no signs of active infection. No tenderness to palpation. No ischemic changes to the foot. Bone Cx: GNBs, pending Wound Cx: no growth Imp: 56 year old IDDM M, L foot DFU with osteomyelitis, s/p L foot debridement with metatarsal head resection POD #1 1. C/w IV abx per Infectious Disease 2. Packing removed at bedside today. Saline gauze packed + DSD 3. Vascular input appreciated. For LLE angiogram today. 4. F/u OR cultures 5. Will need VAC as outpatient, close follow up at wound healing center. 6. Will follow Deja Rodrigues DPM
[2017-04-16] MEDS ORDERED: HEPARIN NA (PORCINE) 5,000 UNITS/ML 1ML VIAL ONE (11:26)
--- NOTE | 2017-04-16 11:31 | CON.PULM ---
Consult Consult Specialty:: PULMONARY Referred by:: MARGIE Reason for Consultation:: R/O SLEEP APNEA - History of Present Illness Chief Complaint: SNORING/DAYTIME HYPERSOMNOLENCE History of Present Illness: 56 yrs old male sent from Dr Sandra office for left foot non healing ulcer-- 3 weeks Pt has extensive H/O CAD, PAD, DM , HTN, ESRD on HD He was in [place] where he noticed a black spot on top of his left forefoot-- he scratched it open and has been healing poorly ever since. Getting bigger. Not painful. We have been asked to evaluate for possible sleep apnea. Patient states he has daytime hypersomnolence, snoring,awakes with gasping and choking and occasional headache. 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 No: AFIB Pulmonary: No: COPD, O2 Dependent Gastrointestinal: No: Ascites Hepatobiliary: No: Cirrhosis Renal/: Yes: Renal Failure, Hemodialysis Heme/Onc: Yes: Anemia Infectious Disease: No: AIDS Psych: No: Addictions Musculoskeletal: Yes: Other (peripheral vascular disease) Endocrine: Yes: Diabetes Mellitus - Past Surgical History Past Surgical History: Yes: AV Fistula/Graft - Alcohol/Substance Use Hx Alcohol Use: No - Smoking History Smoking history: Never smoked Have you smoked in the past 12 months: No Aproximately how many cigarettes per day: 0 - Social History Usual Living Arrangement: With Spouse Place of : Other History of Recent Travel: No Home Medications - Allergies Allergies/Adverse Reactions: Allergies Allergy/AdvReac Type Severity Reaction Status Date / Time No Known Drug Allergies Allergy Verified 04/09/17 16:57 - Home Medications Home Medications: Ambulatory Orders Aspirin 81 mg PO DAILY #0 tab.chew 01/07/13 Esomeprazole Mag Trihydrate [Nexium] 40 mg PO DAILY 10/10/14 Amlodipine Besylate [Norvasc -] 10 mg PO DAILY tablet 06/14/16 Atorvastatin Ca [Lipitor] 10 mg PO HS #30 tablet 06/14/16 Insulin Glargine,Hum.rec.anlog [Lantus (10mL VIAL) -] 30 units SQ HS 07/05/16 Albuterol 0.083% Nebulizer Faviola [Ventolin 0.083% Nebulizer Soln -] 1 amp NEB Q4H PRN #0 amp 08/10/16 Insulin (Novolog 70/30) [Novolog Mix 70/30 Flexpen -] 30 units SQ BID 02/21/17 Benzonatate 200 mg PO DAILY 04/09/17 Calcium Acetate 667 mg PO DAILY 04/09/17 Esomeprazole Magnesium 40 mg PO DAILY 04/09/17 Folic Acid/Vit Bcomp,C [Piedad-Kelly Tablet] 0.8 mg PO DAILY 04/09/17 Furosemide [Lasix] 80 mg PO DAILY 04/09/17 Insulin Glargine,Hum.rec.anlog [Lantus (10mL VIAL) -] 30 units SQ AM 04/09/17 Labetalol HCl [Normodyne -] 200 mg PO BID 04/09/17 Metoprolol Succinate [Toprol Xl -] 25 mg PO DAILY 04/09/17 Montelukast Na [Singulair -] 10 mg PO DAILY 04/09/17 Sevelamer Carbonate [Renvela -] 800 mg PO TID 04/09/17 Family Disease History - Family Disease History Family History: Unremarkable Review of Systems - Review of Systems Constitutional: reports: Lethargy. denies: Fever, Loss of Appetite Eyes: denies: Blurred Vision HENT: denies: Difficult Swallowing Neck: denies: Decreased ROM Cardiovascular: denies: Chest Pain Respiratory: reports: SOB on Exertion, Other (see HPI for symptoms related to OSAS) Gastrointestinal: reports: No Symptoms Genitourinary: reports: No Symptoms Breasts: reports: No Symptoms Reported Physical Exam Vital Sings: Vital Signs Temperature 97.9 F 04/16/17 05:36 Pulse Rate 72 04/16/17 05:36 Respiratory Rate 18 04/16/17 05:36 Blood Pressure 136/66 04/16/17 05:36 O2 Sat by Pulse Oximetry (%) 99 04/15/17 21:00 Constitutional: Yes: Calm Eyes: Yes: EOM Intact HENT: Yes: Normocephalic Neck: Yes: Trachea Midline Cardiovascular: Yes: Regular Rate and Rhythm, S1, S2 Respiratory: Yes: Regular Gastrointestinal: Yes: Abdomen, Obese Extremities: Yes: Other Labs: CBC, BMP 04/14/17 16:30 04/14/17 16:30 rest reviewed Imaging - Results Chest X-ray: Image Reviewed Problem List - Problems (1) Anemia associated with chronic renal failure Code(s): D63.1 - ANEMIA IN CHRONIC KIDNEY DISEASE (2) Cellulitis of foot Code(s): L03.119 - CELLULITIS OF UNSPECIFIED PART OF LIMB (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
--- NOTE | 2017-04-16 12:00 | PN ---
Progress Note, Physician Chief Complaint: s/p left foot debridement History of Present Illness: under sedation and MAC - Current Medication List Current Medications: Active Medications Acetaminophen (Tylenol -) 650 mg PO Q4H PRN PRN Reason: PAIN Last Admin: 04/16/17 09:39 Dose: 650 mg Amlodipine Besylate (Norvasc -) 10 mg PO DAILY [facility] Last Admin: 04/16/17 09:15 Dose: 10 mg Aspirin (Asa -) 81 mg PO DAILY [facility] Last Admin: 04/16/17 10:25 Dose: 81 mg Atorvastatin Calcium (Lipitor -) 10 mg PO HS [facility] Last Admin: 04/15/17 22:33 Dose: 10 mg Calcium Acetate (Phoslo -) 667 mg PO TIDCM [facility] Last Admin: 04/16/17 08:16 Dose: 667 mg Clopidogrel Bisulfate (Plavix -) 75 mg PO DAILY [facility] Last Admin: 04/16/17 10:25 Dose: 75 mg Epoetin Jared (Procrit -) 20,000 unit IVPUSH ONCE ONE Stop: 04/17/17 08:17 Piperacillin/Tazobactam/Dextrose (Zosyn 2.25gm Ivpb (Premix)) 50 mls @ 100 mls/ hr IVPB BID [facility] PRN Reason: Protocol Last Admin: 04/16/17 09:15 Dose: 100 mls/hr Insulin Aspart (Novolog Vial Sliding Scale -) 1 vial SQ TIDAC [facility] PRN Reason: Protocol Last Admin: 04/16/17 11:31 Dose: Not Given Insulin Aspart (Novolog Mix 70/30 Vial) 30 units SQ BIDI [facility] Last Admin: 04/15/17 16:45 Dose: 30 units Losartan Potassium (Cozaar -) 50 mg PO DAILY [facility] Last Admin: 04/16/17 09:15 Dose: 50 mg Metoclopramide HCl (Reglan -) 5 mg PO TIDAC [facility] Last Admin: 04/16/17 06:03 Dose: Not Given Metoprolol Tartrate (Lopressor -) 25 mg PO BID [facility] Last Admin: 04/16/17 09:16 Dose: 25 mg Mupirocin (Bactroban 2% Ointment -) 1 applic TP BID [facility] Last Admin: 04/15/17 22:35 Dose: 1 applic Oxycodone HCl (Roxicodone -) 10 mg PO Q4H PRN PRN Reason: PAIN Last Admin: 04/16/17 09:38 Dose: 10 mg Pantoprazole Sodium (Protonix -) 40 mg PO BID [facility] Last Admin: 04/16/17 09:16 Dose: 40 mg Sucralfate (Carafate Oral Suspension -) 1 gm PO QID [facility] Last Admin: 04/16/17 09:17 Dose: 1 gm Zolpidem Tartrate (Ambien -) 5 mg PO HS PRN Last Admin: 04/15/17 22:31 Dose: 5 mg - Objective Vital Signs: Vital Signs Temperature 97.7 F 04/16/17 11:48 Pulse Rate 68 04/16/17 11:48 Respiratory Rate 18 04/16/17 11:48 Blood Pressure 122/64 04/16/17 11:48 O2 Sat by Pulse Oximetry (%) 96 04/16/17 09:00 Constitutional: Yes: Well Nourished Cardiovascular: Yes: WNL Respiratory: Yes: WNL Gastrointestinal: Yes: WNL Labs: CBC, BMP 04/14/17 16:30 04/14/17 16:30 INR, PTT INR 1.10 (0.82-1.09) 04/11/17 03:00 Assessment/Plan No adverse effect from anesthetic, patient reports no pain, dept of anesthesiology will sign off care at this time
[2017-04-16] MEDS: MUPIROCIN 2% TOPICAL OINTMENT 22 GM TUBE TP SCH ×2 (12:05→22:51)
--- NOTE | 2017-04-16 12:09 | PN ---
Progress Note, Physician Chief Complaint: for angiogram no distress - Current Medication List Current Medications: Active Medications Acetaminophen (Tylenol -) 650 mg PO Q4H PRN PRN Reason: PAIN Last Admin: 04/16/17 09:39 Dose: 650 mg Amlodipine Besylate (Norvasc -) 10 mg PO DAILY [facility] Last Admin: 04/16/17 09:15 Dose: 10 mg Aspirin (Asa -) 81 mg PO DAILY [facility] Last Admin: 04/16/17 10:25 Dose: 81 mg Atorvastatin Calcium (Lipitor -) 10 mg PO HS [facility] Last Admin: 04/15/17 22:33 Dose: 10 mg Calcium Acetate (Phoslo -) 667 mg PO TIDCM [facility] Last Admin: 04/16/17 12:05 Dose: Not Given Clopidogrel Bisulfate (Plavix -) 75 mg PO DAILY [facility] Last Admin: 04/16/17 10:25 Dose: 75 mg Epoetin Jared (Procrit -) 20,000 unit IVPUSH ONCE ONE Stop: 04/17/17 08:17 Piperacillin/Tazobactam/Dextrose (Zosyn 2.25gm Ivpb (Premix)) 50 mls @ 100 mls/ hr IVPB BID [facility] PRN Reason: Protocol Last Admin: 04/16/17 09:15 Dose: 100 mls/hr Insulin Aspart (Novolog Vial Sliding Scale -) 1 vial SQ TIDAC [facility] PRN Reason: Protocol Last Admin: 04/16/17 11:31 Dose: Not Given Insulin Aspart (Novolog Mix 70/30 Vial) 30 units SQ BIDI [facility] Last Admin: 04/15/17 16:45 Dose: 30 units Losartan Potassium (Cozaar -) 50 mg PO DAILY [facility] Last Admin: 04/16/17 09:15 Dose: 50 mg Metoclopramide HCl (Reglan -) 5 mg PO TIDAC [facility] Last Admin: 04/16/17 12:04 Dose: Not Given Metoprolol Tartrate (Lopressor -) 25 mg PO BID [facility] Last Admin: 04/16/17 09:16 Dose: 25 mg Mupirocin (Bactroban 2% Ointment -) 1 applic TP BID [facility] Last Admin: 04/16/17 12:05 Dose: Not Given Oxycodone HCl (Roxicodone -) 10 mg PO Q4H PRN PRN Reason: PAIN Last Admin: 04/16/17 09:38 Dose: 10 mg Pantoprazole Sodium (Protonix -) 40 mg PO BID [facility] Last Admin: 04/16/17 09:16 Dose: 40 mg Sucralfate (Carafate Oral Suspension -) 1 gm PO QID [facility] Last Admin: 04/16/17 09:17 Dose: 1 gm Zolpidem Tartrate (Ambien -) 5 mg PO HS PRN Last Admin: 04/15/17 22:31 Dose: 5 mg - Objective Vital Signs: Vital Signs Temperature 97.7 F 04/16/17 11:48 Pulse Rate 68 04/16/17 11:48 Respiratory Rate 18 04/16/17 11:48 Blood Pressure 122/64 04/16/17 11:48 O2 Sat by Pulse Oximetry (%) 96 04/16/17 09:00 Constitutional: Yes: No Distress Cardiovascular: Yes: Regular Rate and Rhythm Respiratory: Yes: CTA Bilaterally Gastrointestinal: Yes: Normal Bowel Sounds, Soft, Abdomen, Obese. 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 -- pain control -- HD per Renal -- continue with diabetic control -- DVT prophylaxis-- Xarelto
[2017-04-16] MEDS ORDERED: MIDAZOLAM HCL 2 MG/2 ML SINGLE DOSE VIAL ONE (12:14)
[2017-04-16] MEDS ORDERED: LIDOCAINE HCL 1%, 10 MG/ML (20ML VIAL) PNB ONE (12:34)
--- NOTE | 2017-04-16 13:27 | OP ---
Operative Note - Note: Operative Date: 04/16/17 Pre-Operative Diagnosis: Wound left 1st toe, popliteal occlusion Operation: Angiogram left leg, angioplasty dorsalis pedis artery Findings: Patent left femoral, popliteal and 3 tibial arteries. Focal stenosis of DP at tarsal tunnel. Intact pedal arch Post-Operative Diagnosis: Other (Normal arteriogram to foot, local disease in DPA) Surgeon: Reymundo Gonzalez Anesthesiologist/NUTRIENT MANAGEMENT SPECIALIST: Anamaria Coffey MD Anesthesia: Fractional
[2017-04-16] MEDS: INSULIN (NOVOLOG MIX 70/30) 100 UNITS/ML MDV SQ SCH (17:11)
[2017-04-16] MEDS ORDERED: PT OWN MED DRAWER 7, Y5N ONE (21:38)
[2017-04-16] MEDS: ATORVASTATIN CA 10 MG TABLET (FP) PO SCH (21:43)
[2017-04-16] MEDS: ZOLPIDEM TARTRATE 5 MG TABLET PO PRN (21:44)
--- NOTE | 2017-04-17 01:44 | OP ---
DATE OF OPERATION: 04/16/2017 SURGEON: Reymundo Gonzalez MD PROCEDURE: Angiogram of the left lower extremity with angioplasty of the dorsalis pedis artery. PREOPERATIVE DIAGNOSIS: Gangrenous wound of left 1st toe with abnormal computer tomography angiography showing popliteal artery occlusion. POSTOPERATIVE DIAGNOSIS: Gangrenous wound of left 1st toe with abnormal computer tomography angiography showing popliteal artery occlusion with normal popliteal artery on angiogram. ANESTHESIA: Fractural. ANESTHESIOLOGIST: Anamaria Coffey MD OPERATIVE FINDING: There was no stenosis or significant plaque formation in the left common, deep, and superficial femoral arteries. The popliteal artery was completely patent without any evidence of stenosis. The tibial arteries were all patent, extending down to the ankle and foot. There was a short-segment stenosis of approximately 70% in the dorsalis pedis artery as across the ankle joint. The plantar arch appeared intact. OPERATIVE PROCEDURE: Following routine patient identification with site and side verification, intravenous sedation was established. Both groins were prepped with ChloraPrep. Timeout was performed. Then 1% Xylocaine was infiltrated in the right groin over the femoral pulse. Under angiographic guidance, a micropuncture needle was then advanced towards the femoral head until the artery was entered. A microwire was advanced proximally and the needle was exchanged for a 5-Wolof catheter. An angle-tipped guidewire was then advanced into the abdominal aorta. An Omni Flush catheter was placed over the wire and advanced into the distal aorta. The wire was then advanced distally into the left iliac artery and down to the level of the groin. The catheter was advanced over the wire and positioned in the left common femoral artery. Angiography was then performed with dilute contrast and digital technique with the above noted findings. A stiff wire was advanced through the catheter and into the superficial femoral artery, all of the way down to the knee. Catheter and sheath were removed. A 6-Wolof x 90-cm catheter was then advanced over the wire and the tip positioned in the popliteal artery. The patient was systemically heparinized. A commercial drone pilot wire was then advanced through the sheath with a catheter support into the anterior tibial artery and down to the level of the ankle. Angiography was performed through the catheter to confirm the stenosis seen on previous images. The wire was then advanced through the stenosis and into the pedal arch. A 2.5-mm x 2-cm angioplasty balloon was then used to dilate the stenotic area to nominal pressure for 2 minutes. Repeat imaging revealed improved diameter, but continuous stenosis, which may be extrinsic. The remainder of the tibial vessels remained patent. The wire and catheter were then removed. The sheath was pulled back over the aortic bifurcation over a wire and angiography of the right femoral artery was obtained to check the puncture site. The sheath was then removed and the arteriotomy was closed with a StarClose device without complication. A sterile dressing was applied and the patient was taken to the recovery room in stable condition. Shira [id number]
[2017-04-17] MEDS: ACETAMINOPHEN 325 MG TABLET (FP) PO PRN ×3 (02:25→21:16)
[2017-04-17] MEDS: oxyCODONE HCL 5 MG TABLET PO PRN ×3 (02:25→21:16)
[2017-04-17] MEDS: INSULIN (NOVOLOG MIX 70/30) 100 UNITS/ML MDV SQ SCH ×3 (06:12→16:53)
[2017-04-17] MEDS: METOCLOPRAMIDE HCL 10 MG TABLET (FP) PO SCH ×3 (06:14→17:25)
[2017-04-17] MEDS: INSULIN SLIDING SCALE (NOVOLOG) 1 VIAL SQ SCH ×3 (06:47→16:53)
[2017-04-17] MEDS: CALCIUM ACETATE 667 MG CAPSULE (FP) PO SCH ×3 (08:14→16:53)
[2017-04-17] MEDS ORDERED: EPOETIN ALFA 20,000 UNIT/1 ML VIAL IVPUSH ONE ×2 (08:16→10:00)
--- NOTE | 2017-04-17 11:26 | PN ---
Progress Note (short form) - Note Progress Note: Anesthesia postop note 56y/o M, s/p MAC for lower extremity angiogram POD#1, vss, aoox3, some pain at the puncture site No anesthesia complications.
--- NOTE | 2017-04-17 12:12 | PN ---
Progress Note, Physician Chief Complaint: s/p angiogram and angioplasty feels well no complaints - Current Medication List Current Medications: Active Medications Acetaminophen (Tylenol -) 650 mg PO Q4H PRN PRN Reason: PAIN Last Admin: 04/17/17 02:25 Dose: 650 mg Amlodipine Besylate (Norvasc -) 10 mg PO DAILY [facility] Aspirin (Asa -) 81 mg PO DAILY [facility] Atorvastatin Calcium (Lipitor -) 10 mg PO HS [facility] Last Admin: 04/16/17 21:43 Dose: 10 mg Calcium Acetate (Phoslo -) 667 mg PO TIDCM [facility] Last Admin: 04/17/17 08:14 Dose: 667 mg Fentanyl (Sublimaze Injection -) 25 mcg IVPUSH [id number] PRN PRN Reason: PAIN Stop: 04/19/17 13:29 Last Admin: 04/16/17 14:00 Dose: 25 mcg Piperacillin/Tazobactam/Dextrose (Zosyn 2.25gm Ivpb (Premix)) 50 mls @ 100 mls/ hr IVPB BID [facility] PRN Reason: Protocol Last Admin: 04/16/17 21:45 Dose: 100 mls/hr Insulin Aspart (Novolog Vial Sliding Scale -) 1 vial SQ TIDAC [facility] PRN Reason: Protocol Last Admin: 04/17/17 06:47 Dose: Not Given Insulin Aspart (Novolog Mix 70/30 Vial) 30 units SQ BIDI [facility] Last Admin: 04/17/17 06:48 Dose: Not Given Losartan Potassium (Cozaar -) 50 mg PO DAILY [facility] Metoclopramide HCl (Reglan -) 5 mg PO TIDAC [facility] Last Admin: 04/17/17 06:14 Dose: 5 mg Metoprolol Tartrate (Lopressor -) 25 mg PO BID [facility] Last Admin: 04/16/17 21:44 Dose: 25 mg Mupirocin (Bactroban 2% Ointment -) 1 applic TP BID [facility] Last Admin: 04/16/17 22:51 Dose: Not Given Oxycodone HCl (Roxicodone -) 10 mg PO Q4H PRN PRN Reason: PAIN Last Admin: 04/17/17 02:25 Dose: 10 mg Pantoprazole Sodium (Protonix -) 40 mg PO BID [facility] Last Admin: 04/16/17 21:44 Dose: 40 mg Sucralfate (Carafate Oral Suspension -) 1 gm PO QID [facility] Last Admin: 04/16/17 21:43 Dose: 1 gm Zolpidem Tartrate (Ambien -) 5 mg PO HS PRN Last Admin: 04/16/17 21:44 Dose: 5 mg - Objective Vital Signs: Vital Signs Temperature 98.0 F 04/17/17 10:00 Pulse Rate 60 04/17/17 12:00 Respiratory Rate 18 04/17/17 12:00 Blood Pressure 136/66 04/17/17 12:00 O2 Sat by Pulse Oximetry (%) 98 04/16/17 21:00 Constitutional: Yes: No Distress, Calm Cardiovascular: Yes: Regular Rate and Rhythm Respiratory: Yes: CTA Bilaterally Gastrointestinal: Yes: Normal Bowel Sounds, Soft. 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 (3) Osteomyelitis Code(s): M86.9 - OSTEOMYELITIS, UNSPECIFIED Qualifiers: Osteomyelitis location: foot Laterality: left (4) Sleep apnea Code(s): G47.30 - SLEEP APNEA, UNSPECIFIED (5) Diabetes Code(s): E11.9 - TYPE 2 DIABETES MELLITUS WITHOUT COMPLICATIONS Qualifiers: Diabetes mellitus type: type 2 Diabetes mellitus complication status: with unspecified complications (6) ESRD (end stage renal disease) Code(s): N18.6 - END STAGE RENAL DISEASE Assessment/Plan PLAN Non healing Left foot ulcer Diabetes ESRD on HD PAD HTN CAD -- iv antibiotics- will need [place] [facility] -- spoke with DR Leal-- waiting for wound culture results --Pt is on O2 at home- uses it as needed -- seen by Pulmonary-- will need outpt sleep study -- pain control -- HD per Renal -- continue with diabetic control -- DVT prophylaxis-- Xarelto
[2017-04-17] MEDS: PIPERACILLIN/TAZOB 2.25 GM 50 ML IVPB SCH ×2 (13:45→21:17)
[2017-04-17] MEDS: SUCRALFATE 1 GM/10 ML UNIT DOSE CUPS PO SCH ×4 (13:45→21:15)
[2017-04-17] MEDS: amLODIPine BESYLATE 10 MG TABLET (FP) PO SCH (13:46)
[2017-04-17] MEDS: PANTOPRAZOLE 40 MG TABLET (FP) PO SCH ×2 (13:46→21:16)
[2017-04-17] MEDS: METOPROLOL TARTRATE 25 MG TABLET (FP) PO SCH ×2 (13:46→21:15)
[2017-04-17] MEDS: LOSARTAN POTASSIUM 50 MG TABLET (FP) PO SCH (13:46)
[2017-04-17] MEDS: MUPIROCIN 2% TOPICAL OINTMENT 22 GM TUBE TP SCH ×2 (13:46→22:22)
[2017-04-17] MEDS: ASPIRIN 81 MG CHEWABLE TABLETS PO SCH (13:46)
[2017-04-17] MEDS ORDERED: PT OWN MED DRAWER 7, Y5N ONE (16:01)
[2017-04-17] MEDS ORDERED: INSULIN (NOVOLOG) ASPART 100 UNITS/ML 10ML VIAL ONE (16:51)
--- NOTE | 2017-04-17 17:43 | PN ---
Progress Note (short form) - Note Progress Note: 56 year old man withtype 2 diabetes mellitus, hypertension and end stage renal disease admitted with gangrene of the left big toe. Patient is status post angiogram and debridement of the ulcer in the left big toe. Patient seen today in bed complaining of discomfort at the surgical site. Vitals: Vital Signs (72 hours) 04/14/17 04/14/17 04/14/17 19:26 21:00 22:00 Temperature 97.6 F 98.3 F Pulse Rate 62 86 Respiratory 20 18 Rate Blood Pressure 143/72 123/67 O2 Sat by Pulse 100 Oximetry (%) 04/15/17 04/15/17 04/15/17 05:59 06:45 06:50 Temperature 97.6 F 98.4 F Pulse Rate 64 64 69 Respiratory 18 18 18 Rate Blood Pressure 128/62 172/88 175/90 O2 Sat by Pulse Oximetry (%) 04/15/17 04/15/17 04/15/17 07:20 07:50 08:20 Temperature Pulse Rate 60 64 60 Respiratory 18 18 18 Rate Blood Pressure 144/71 140/70 133/68 O2 Sat by Pulse Oximetry (%) 04/15/17 04/15/17 04/15/17 08:50 09:20 09:50 Temperature Pulse Rate 62 60 62 Respiratory 18 18 18 Rate Blood Pressure 140/76 147/72 144/71 O2 Sat by Pulse Oximetry (%) 04/15/17 04/15/17 04/15/17 10:20 10:30 10:57 Temperature 97.9 F Pulse Rate 62 65 70 Respiratory 18 18 18 Rate Blood Pressure 151/69 150/68 143/72 O2 Sat by Pulse Oximetry (%) 04/15/17 04/15/17 04/15/17 11:15 13:28 13:45 Temperature 97.9 F Pulse Rate 68 66 Respiratory 16 16 Rate Blood Pressure 147/67 138/67 O2 Sat by Pulse 95 100 100 Oximetry (%) 04/15/17 04/15/17 04/15/17 14:00 14:15 14:30 Temperature Pulse Rate 68 66 66 Respiratory 16 16 16 Rate Blood Pressure 144/66 145/66 150/70 O2 Sat by Pulse 100 100 100 Oximetry (%) 04/15/17 04/15/17 04/15/17 14:45 15:00 15:40 Temperature 97.9 F 98.3 F Pulse Rate 68 64 67 Respiratory 16 16 20 Rate Blood Pressure 142/65 158/80 142/74 O2 Sat by Pulse 100 100 Oximetry (%) 04/15/17 04/15/17 04/15/17 19:47 21:00 22:00 Temperature 97.5 F L 97.8 F Pulse Rate 67 68 Respiratory 18 18 Rate Blood Pressure 137/64 128/66 O2 Sat by Pulse 99 Oximetry (%) 04/16/17 04/16/17 04/16/17 05:36 09:00 11:48 Temperature 97.9 F 97.7 F Pulse Rate 72 68 Respiratory 18 18 18 Rate Blood Pressure 136/66 122/64 O2 Sat by Pulse 96 Oximetry (%) 04/16/17 04/16/17 04/16/17 13:24 13:30 13:45 Temperature 97.8 F Pulse Rate 70 63 61 Respiratory 20 12 13 Rate Blood Pressure 120/60 122/64 118/58 O2 Sat by Pulse 99 100 100 Oximetry (%) 04/16/17 04/16/17 04/16/17 14:00 14:15 14:30 Temperature Pulse Rate 62 62 62 Respiratory 13 14 14 Rate Blood Pressure 117/54 116/54 113/58 O2 Sat by Pulse 100 95 100 Oximetry (%) 04/16/17 04/16/17 04/16/17 14:45 15:00 18:34 Temperature 98.4 F 97.7 F Pulse Rate 63 64 66 Respiratory 20 14 18 Rate Blood Pressure 125/58 124/62 126/51 O2 Sat by Pulse 100 97 Oximetry (%) 04/16/17 04/16/17 04/17/17 21:00 22:00 01:00 Temperature 97.9 F 97.7 F Pulse Rate 68 65 Respiratory 20 20 Rate Blood Pressure 127/67 117/77 O2 Sat by Pulse 98 Oximetry (%) 04/17/17 04/17/17 04/17/17 05:50 09:25 09:30 Temperature 97.6 F 97.6 F Pulse Rate 61 65 61 Respiratory 20 18 18 Rate Blood Pressure 128/65 133/71 128/65 O2 Sat by Pulse Oximetry (%) 04/17/17 04/17/17 04/17/17 10:00 10:30 11:00 Temperature 98.0 F Pulse Rate 60 65 60 Respiratory 18 18 18 Rate Blood Pressure 121/61 130/67 123/67 O2 Sat by Pulse Oximetry (%) 04/17/17 04/17/17 04/17/17 11:30 12:00 12:30 Temperature Pulse Rate 65 60 60 Respiratory 18 18 18 Rate Blood Pressure 130/67 136/66 154/75 O2 Sat by Pulse Oximetry (%) 04/17/17 04/17/17 13:00 13:05 Temperature Pulse Rate 60 60 Respiratory 18 18 Rate Blood Pressure 144/68 143/66 O2 Sat by Pulse Oximetry (%) Lungs: coarse breath sound in both lung clark Heart: S1 S2 regular Abd: Full, soft, non-tender, BS normal Ext: left foot dressing in warm, warm to touch Labs: CBCD WBC 4.7 K/mm3 (4.0-10.0) D 04/14/17 16:30 RBC 3.06 M/mm3 (4.00-5.60) L 04/14/17 16:30 Hgb 8.6 GM/dL (11.7-16.9) L 04/14/17 16:30 Hct 26.6 % (35.4-49) L 04/14/17 16:30 MCV 87.0 fl (80-96) 04/14/17 16:30 MCHC 32.3 g/dl (32.0-35.9) 04/14/17 16:30 RDW 17.6 % (11.9-15.9) H 04/14/17 16:30 Plt Count 217 K/MM3 (134-434) 04/14/17 16:30 MPV 8.5 fl (7.5-11.1) 04/14/17 16:30 CMP Sodium 132 mmol/L (136-145) L 04/14/17 16:30 Potassium 5.2 mmol/L (3.5-5.1) H 04/14/17 16:30 Chloride 91 mmol/L (98-107) L 04/14/17 16:30 Carbon Dioxide 28 mmol/L (21-32) 04/14/17 16:30 Anion Gap 13 (8-16) 04/14/17 16:30 BUN 61 mg/dL (7-18) H D 04/14/17 16:30 Creatinine 9.5 mg/dL (0.7-1.3) H* D 04/14/17 16:30 Creat Clearance w eGFR 6.79 (>60) 04/10/17 14:45 Calcium 7.4 mg/dL (8.5-10.1) L 04/14/17 16:30 Total Bilirubin 0.5 mg/dL (0.2-1.0) D 04/10/17 14:45 AST 20 U/L (15-37) D 04/10/17 14:45 ALT 32 U/L (12-78) 04/10/17 14:45 Alkaline Phosphatase 229 U/L (45-117) H 04/10/17 14:45 Total Protein 7.8 g/dl (6.4-8.2) 04/10/17 14:45 Albumin 2.9 g/dl (3.4-5.0) L 04/10/17 14:45 A/P;Middle age man with ESRD admitted with diabetic foot, s/p debridement. Hemodialysis today as per the dialysis orders. Advised to keep the left foot elevated. Discharge planning as per vascular. 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
[2017-04-17] MEDS: ATORVASTATIN CA 10 MG TABLET (FP) PO SCH (21:15)
[2017-04-17] MEDS: ZOLPIDEM TARTRATE 5 MG TABLET PO PRN (21:16)
[2017-04-18] MEDS: oxyCODONE HCL 5 MG TABLET PO PRN ×3 (03:16→22:20)
[2017-04-18] MEDS: ACETAMINOPHEN 325 MG TABLET (FP) PO PRN ×2 (03:17→22:21)
[2017-04-18] MEDS: METOCLOPRAMIDE HCL 10 MG TABLET (FP) PO SCH ×3 (06:23→17:11)
[2017-04-18] MEDS: INSULIN SLIDING SCALE (NOVOLOG) 1 VIAL SQ SCH ×3 (06:24→17:10)
[2017-04-18] MEDS: INSULIN (NOVOLOG MIX 70/30) 100 UNITS/ML MDV SQ SCH ×2 (06:24→17:10)
--- NOTE | 2017-04-18 08:35 | PN ---
Progress Note (short form) - Note Progress Note: Podiatry F/u: Seen/evaluated at bedside, NAD. Pain controlled, denies F/V/N/C/SOB/CP. S/p Debridement/lavage with first metatarsal head resection. S/p LLE angiogram with Dr. Gonzalez. Denies F/V/N/C/SOB/CP. AFebrile, VSS. EDELMIRA: L foot: dressing C/D/I, no active bleeding, no strikethrough. Sutures well coapted proximally with no dehiscence. Dorsal 1st MTPJ ulcer with granular base , no purulence, probes deep, no fluctuance, no ascending cellulitis, no signs of infection. Minimal tenderness to palpation. No ischemic changes to the foot. OR Bone Cx: E. Coli OR Path: pending Imp: 56 year old IDDM M s/p L first metatarsal head resection with debridement 1. C/w IV abx per ID 2. F/u OR bone path 3. Saline gauze packed into ulcer with DSD L foot 4. Partial WB L heel with surgical shoe 5. May need IV abx treatment for osteomyelitis 6. Needs wound vac and home nursing services 7. Can apply dakin's gauze packing until vac comes to house 8. Will f/u in wound healing center this Friday. Deja Rodrigues DPM
--- NOTE | 2017-04-18 09:33 | PN ---
Progress Note (short form) - Note Progress Note: Pt seen/examined comfortable no complains Vital Signs Temp 97.5 F L 04/18/17 05:56 Pulse 71 04/18/17 05:56 Resp 20 04/18/17 05:56 BP 119/65 04/18/17 05:56 Pulse Ox 98 04/17/17 21:00 Intake & Output 04/17/17 04/17/17 04/18/17 11:59 23:59 11:59 Intake Total 100 Balance 100 Intake: IV 0 sl 0 IVPB 100 Other: Voiding Method Toilet Urinal Bowel Movement No No Active Medications Acetaminophen (Tylenol -) 650 mg PO Q4H PRN PRN Reason: PAIN Last Admin: 04/18/17 03:17 Dose: 650 mg Amlodipine Besylate (Norvasc -) 10 mg PO DAILY [facility] Last Admin: 04/17/17 13:46 Dose: 10 mg Aspirin (Asa -) 81 mg PO DAILY [facility] Last Admin: 04/17/17 13:46 Dose: 81 mg Atorvastatin Calcium (Lipitor -) 10 mg PO HS [facility] Last Admin: 04/17/17 21:15 Dose: 10 mg Calcium Acetate (Phoslo -) 667 mg PO TIDCM [facility] Last Admin: 04/17/17 16:53 Dose: 667 mg Fentanyl (Sublimaze Injection -) 25 mcg IVPUSH [id number] PRN PRN Reason: PAIN Stop: 04/19/17 13:29 Last Admin: 04/16/17 14:00 Dose: 25 mcg Piperacillin/Tazobactam/Dextrose (Zosyn 2.25gm Ivpb (Premix)) 50 mls @ 100 mls/ hr IVPB BID [facility] PRN Reason: Protocol Last Admin: 04/17/17 21:17 Dose: 100 mls/hr Insulin Aspart (Novolog Vial Sliding Scale -) 1 vial SQ TIDAC [facility] PRN Reason: Protocol Last Admin: 04/18/17 06:24 Dose: Not Given Insulin Aspart (Novolog Mix 70/30 Vial) 30 units SQ BIDI [facility] Last Admin: 04/18/17 06:24 Dose: Not Given Losartan Potassium (Cozaar -) 50 mg PO DAILY [facility] Last Admin: 04/17/17 13:46 Dose: 50 mg Metoclopramide HCl (Reglan -) 5 mg PO TIDAC [facility] Last Admin: 04/18/17 06:23 Dose: 5 mg Metoprolol Tartrate (Lopressor -) 25 mg PO BID [facility] Last Admin: 04/17/17 21:15 Dose: 25 mg Mupirocin (Bactroban 2% Ointment -) 1 applic TP BID [facility] Last Admin: 04/17/17 22:22 Dose: Not Given Oxycodone HCl (Roxicodone -) 10 mg PO Q4H PRN PRN Reason: PAIN Last Admin: 04/18/17 03:16 Dose: 10 mg Pantoprazole Sodium (Protonix -) 40 mg PO BID [facility] Last Admin: 04/17/17 21:16 Dose: 40 mg Rivaroxaban (Xarelto -) 15 mg PO DAILY [facility] Sucralfate (Carafate Oral Suspension -) 1 gm PO QID [facility] Last Admin: 04/17/17 21:15 Dose: 1 gm Zolpidem Tartrate (Ambien -) 5 mg PO HS PRN Last Admin: 04/17/17 21:16 Dose: 5 mg CBC, BMP 04/14/17 16:30 04/14/17 16:30 Microbiology 04/15/17 14:04 Gram Stain - Final Bone Tissue Culture - Final Escherichia Coli Anaerobic Culture - Final NO ANAEROBES WERE ISOLATED 04/15/17 14:04 Gram Stain - Final Toe - Left Hallux Wound Culture - Final NO AEROBIC OR ANAEROBIC GROWTH OBTAINED. - Physical Exam. Constitutional: Yes: No Distress//comfortable. Cardiovascular: Yes: Regular Rate and Rhythm Respiratory: Yes: Diminished at bases Gastrointestinal: Yes: Normal Bowel Sounds, Soft. No: Tenderness Extremities: Yes: Other (left foot dressing in place) Edema: trace Assessment/Plan Non healing Left foot ulcer- s//p debridgment- osteo Diabetes ESRD on HD PAD HTN CAD -- iv antibiotics- will likely need custodial --antibiotics --Pt is on O2 at home- uses it as needed --- pain control -- HD per Renal -- diabetic control -- DVT prophylaxis-- -- wound vac to be placed - will follow Problem List - Problems (1) Anemia associated with chronic renal failure Code(s): D63.1 - ANEMIA IN CHRONIC KIDNEY DISEASE (2) Cellulitis of right foot Code(s): L03.115 - CELLULITIS OF RIGHT LOWER LIMB (3) Diabetes Code(s): E11.9 - TYPE 2 DIABETES MELLITUS WITHOUT COMPLICATIONS Qualifiers: Diabetes mellitus type: type 2 Diabetes mellitus complication status: with unspecified complications (4) ESRD (end stage renal disease) on dialysis Code(s): N18.6 - END STAGE RENAL DISEASE Z99.2 - DEPENDENCE ON RENAL DIALYSIS
--- NOTE | 2017-04-18 09:47 | PATH ---
Surgical Pathology Report Patient Name: KIANNA MATHEWS Med. Rec. #: [id number] /Age/Gender: 1960 (Age: 56) / M Account: [id number] Location: [facility] MED/SURG Taken: 04/15/2017 Received: 04/15/2017 Reported: 04/18/2017 Physicians: MARYELLEN Sibley M.D. Specimen(s) Received LEFT FIRST METATARSAL BONE Clinical History Blood foot diabetic ulcer infection, osteomyelitis Final Diagnosis BONE, LEFT FIRST METATARSAL, EXCISION: BONE WITH INTERSTITIAL FIBROSIS AND MARKED REACTIVE CHANGES WITH FOCAL AREAS OF BONE DESTRUCTION. NO DEFINITE INFLAMMATORY INFILTRATES ARE IDENTIFIED. (NO DEFINITE OSTEOMYELITIS IDENTIFIED) Comment: Recommend correlation with clinical findings and follow up as clinically indicated. Electronically Signed Tad Peguero M.D. Gross Description Received in formalin labeled "left first metatarsal bone," is a 3.2 x 1.8 x 1.6 cm metatarsal bone with smooth articular cartilage at one aspect and smooth trabecular bone at the opposing aspect (probable true bone margin). Also received within the same container is a 3.0 x 2.5 x 0.8 cm aggregate of [place]a fragments of bone and soft tissue. [employer] sections are submitted in 4 cassettes as follows: 1-cross section of metatarsal bone, following decalcification; 2-bone margin with smooth articular cartilage, following decalcification; 3-bone margin with trabecular bone (probable true bone margin), following decalcification; 4-separately received bone and soft tissue fragments, following decalcification. 04/16/2017 [facility]04/16/2017
--- NOTE | 2017-04-18 10:51 | PN ---
Physical Exam: SUBJECTIVE: Patient seen and examined this AM. No fevers, chills, CP, SOB. Foot is packed. OBJECTIVE: Vital Signs Period Temp Pulse Resp BP Sys/Harris Pulse Ox Last 24 Hr 97.5 F-98.4 F 60-71 18-20 119-154/61-75 98 GEN: AAOx3, NAD, Lying comfortably in the bed, not ill appearing HEENT: PERRLA, EOMi CV: S1, S2, RRR LUNG: CTABL ABD: Soft, NT, ND, normoactive BS MSK: Ulcer is packed, no surround erythema, 2+ pedal edema with venous stasis changes Active Medications Generic Name Dose Route Start Last Admin Trade Name Freq PRN Reason Stop Dose Admin Acetaminophen 650 mg 04/16/17 13:37 04/18/17 03:17 Tylenol - PO 650 mg Q4H PRN Administration PAIN Amlodipine Besylate 10 mg 04/17/17 10:00 04/17/17 13:46 Norvasc - PO 10 mg DAILY [facility] Administration Aspirin 81 mg 04/17/17 10:00 04/17/17 13:46 Asa - PO 81 mg DAILY [facility] Administration Atorvastatin Calcium 10 mg 04/16/17 22:00 04/17/17 21:15 Lipitor - PO 10 mg HS [facility] Administration Calcium Acetate 667 mg 04/16/17 17:30 04/17/17 16:53 Phoslo - PO 667 mg TIDCM [facility] Administration Fentanyl 25 mcg 04/16/17 13:28 04/16/17 14:00 Sublimaze Injection - IVPUSH 04/19/17 13:29 25 mcg [id number] PRN Administration PAIN Piperacillin/Tazobactam/Dextrose 50 mls @ 100 mls/hr 04/16/17 22:00 04/17/17 21 :17 Zosyn 2.25gm Ivpb (Premix) IVPB 100 mls/hr BID [facility] Administration Protocol Insulin Aspart 1 vial 04/16/17 16:30 04/18/17 06:24 Novolog Vial Sliding Scale - SQ Not Given TIDAC [facility] Protocol Insulin Aspart 30 units 04/16/17 16:30 04/18/17 06:24 Novolog Mix 70/30 Vial SQ Not Given BIDI [facility] Losartan Potassium 50 mg 04/17/17 10:00 04/17/17 13:46 Cozaar - PO 50 mg DAILY [facility] Administration Metoclopramide HCl 5 mg 04/16/17 16:30 04/18/17 06:23 Reglan - PO 5 mg TIDAC [facility] Administration Metoprolol Tartrate 25 mg 04/16/17 22:00 04/17/17 21:15 Lopressor - PO 25 mg BID [facility] Administration Mupirocin 1 applic 04/16/17 22:00 04/17/17 22:22 Bactroban 2% Ointment - TP Not Given BID [facility] Oxycodone HCl 10 mg 04/16/17 13:37 04/18/17 03:16 Roxicodone - PO 10 mg Q4H PRN Administration PAIN Pantoprazole Sodium 40 mg 04/16/17 22:00 04/17/17 21:16 Protonix - PO 40 mg BID [facility] Administration Rivaroxaban 15 mg 04/18/17 10:00 Xarelto - PO DAILY [facility] Sucralfate 1 gm 04/16/17 18:00 04/17/17 21:15 Carafate Oral Suspension - PO 1 gm QID [facility] Administration Zolpidem Tartrate 5 mg 04/16/17 13:37 04/17/17 21:16 Ambien - PO 5 mg HS PRN Administration CBC, BMP 04/14/17 16:30 04/14/17 16:30 Microbiology 04/15/17 14:04 Toe - Left Hallux Gram Stain - Final 04/15/17 14:04 Toe - Left Hallux Wound Culture - Final NO AEROBIC OR ANAEROBIC GROWTH OBTAINED. 04/15/17 14:04 Bone Gram Stain - Final 04/15/17 14:04 Bone Anaerobic Culture - Final Escherichia Coli NO ANAEROBES WERE ISOLATED 04/10/17 15:45 Foot - Left Gram Stain - Final 04/10/17 15:45 Foot - Left Wound Culture - Final Klebsiella Pneumoniae Escherichia Coli Enterococcus Faecalis Staphylococcus Aureus 04/09/17 21:00 Blood - Peripheral Venous Blood Culture - Final NO GROWTH AFTER 5 DAYS INCUBATION 04/09/17 21:00 Blood - Peripheral Venous Blood Culture - Final NO GROWTH AFTER 5 DAYS INCUBATION ASSESSMENT/PLAN: Mr Rodriguez is a 56yo M with PMHx of DM2, ESRD on HD (TTS), PAD with R 3rd finger amputation, who was sent from PMD due to L foot wound. # L Foot Osteo - s/p ulcer debridement + 1st metatarsal head resection - On Zosyn 3.375 Q8H Day 5 - Patient not willing to amputate 1st toe, will need 6 weeks senior living Abx - Cefazolin w/ HD Discussed w/ Dr Grady. Will follow Marco Sanchez MD - PGY1 Infectious Disease Visit type - Emergency Visit Emergency Visit: No - New Patient This patient is new to me today: No - Critical Care Critical Care patient: No - Discharge Referral Referred to [facility] Med P.C.: No
[2017-04-18] MEDS: CALCIUM ACETATE 667 MG CAPSULE (FP) PO SCH ×3 (10:59→17:14)
[2017-04-18] MEDS: ASPIRIN 81 MG CHEWABLE TABLETS PO SCH (11:00)
[2017-04-18] MEDS: SUCRALFATE 1 GM/10 ML UNIT DOSE CUPS PO SCH ×4 (11:00→22:19)
[2017-04-18] MEDS: METOPROLOL TARTRATE 25 MG TABLET (FP) PO SCH ×2 (11:01→22:20)
[2017-04-18] MEDS: PANTOPRAZOLE 40 MG TABLET (FP) PO SCH ×2 (11:02→22:19)
[2017-04-18] MEDS: amLODIPine BESYLATE 10 MG TABLET (FP) PO SCH (11:02)
[2017-04-18] MEDS: RIVAROXABAN 15 MG TABLET PO SCH (11:03)
--- NOTE | 2017-04-18 11:20 | PN ---
Progress Note (short form) - Note Progress Note: PULMONARY BREATHING OK OOB TO CHAIR AWAITING SLEEP SCREENING CAN HAVE OFFICIAL STUDY (PSG) AN OUTPATIENT Keshia FOSTER MD Problem List - Problems (1) Anemia associated with chronic renal failure Code(s): D63.1 - ANEMIA IN CHRONIC KIDNEY DISEASE (2) Cellulitis of foot Code(s): L03.119 - CELLULITIS OF UNSPECIFIED PART OF LIMB (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 (4) Diabetes Code(s): E11.9 - TYPE 2 DIABETES MELLITUS WITHOUT COMPLICATIONS Qualifiers: Diabetes mellitus type: type 2 Diabetes mellitus complication status: with unspecified complications (5) Sleep apnea Code(s): G47.30 - SLEEP APNEA, UNSPECIFIED
[2017-04-18] MEDS: PIPERACILLIN/TAZOB 2.25 GM 50 ML IVPB SCH (11:25)
[2017-04-18] MEDS: LOSARTAN POTASSIUM 50 MG TABLET (FP) PO SCH (11:26)
[2017-04-18] MEDS: MUPIROCIN 2% TOPICAL OINTMENT 22 GM TUBE TP SCH ×2 (11:26→23:26)
[2017-04-18 11:33] LABS: ALBUMIN 2.8 g/dl (3.4-5.0); ANION GAP 8 (8-16); BILIRUBIN,TOTAL 0.4 mg/dL (0.2-1.0); CALCIUM 7.7 mg/dL (8.5-10.1); CO2 30 mmol/L (21-32); GLUCOSE,RANDOM 197 mg/dL (74-106); SGOT/AST 43 U/L (15-37); SGPT/ALT 63 U/L (12-78); TOT PROT 7.5 g/dl (6.4-8.2)
[2017-04-18 11:39] LABS: ALK PHOS 297 U/L (45-117)
[2017-04-18 11:58] LABS: BASOPHIL 0.9 % (0-2.0); EOSINOPHIL 2.9 % (0-4.5); MCH 27.6 pg (25.7-33.7); MCHC 30.7 g/dl (32.0-35.9); MEAN CELL VOLUME 89.9 fl (80-96); MEAN PLT VOLUME 8.6 fl (7.5-11.1); NEUTROPHILS 69.7 % (42.8-82.8); PLATELET COUNT 199 K/MM3 (134-434); WHITE BLOOD COUNT 6.6 K/mm3 (4.0-10.0)
[2017-04-18 12:05] LABS: CREATININE 7.5 mg/dL (0.7-1.3)
[2017-04-18] MEDS ORDERED: INSULIN (NOVOLOG) ASPART 100 UNITS/ML 10ML VIAL ONE (12:31)
--- NOTE | 2017-04-18 14:49 | PN ---
Progress Note (short form) - Note Progress Note: no complaints s/p angioplasty s/p first MT head resection 04/15 Vital Signs Period Temp Pulse Resp BP Sys/Harris Pulse Ox Last 24 Hr 97.5 F-98.4 F 66-71 20-20 119-133/61-65 98-100 cor-rrr lungs clear abd soft,nt ext foot with packing intact no erythema or swelling CBC, BMP 04/18/17 11:25 04/18/17 10:30 Microbiology 04/15/17 14:04 Bone Gram Stain - Final 04/15/17 14:04 Bone Tissue Culture - Final Escherichia Coli 04/15/17 14:04 Bone Anaerobic Culture - Final NO ANAEROBES WERE ISOLATED 04/15/17 14:04 Toe - Left Hallux Gram Stain - Final 04/15/17 14:04 Toe - Left Hallux Wound Culture - Final NO AEROBIC OR ANAEROBIC GROWTH OBTAINED. 04/09/17 21:00 Blood - Peripheral Venous Blood Culture - Final NO GROWTH AFTER 5 DAYS INCUBATION 04/09/17 21:00 Blood - Peripheral Venous Blood Culture - Final NO GROWTH AFTER 5 DAYS INCUBATION 04/10/17 15:45 Foot - Left Gram Stain - Final 04/10/17 15:45 Foot - Left Wound Culture - Final Klebsiella Pneumoniae Escherichia Coli Enterococcus Faecalis Staphylococcus Aureus a/p f/u podiatry and pathology can switch to rocephin based on bone culture repeat crp in am suspect will require jail iv antibiotics
[2017-04-18] MEDS ORDERED: CEFTRIAXONE 1 GM/50 ML PREMIX IVPB SCH (15:00)
--- NOTE | 2017-04-18 17:50 | PN ---
Progress Note (short form) - Note Progress Note: 56 WITH DM ESRD PVD RT ARM GRAFT IN WITH LEFT FORE FOOT DORSAL INFECTED [facility] POST LEFT FOOT DEBRIDEMENT CASE D/W DR SINGLETARY NEEDS CEFAZOLIN 2 2 3 GM WITH EACH HD TTS FEELS OK CHECK CLEAR EXT 1 + EDEMA PODIATRY NOTE REGARDING WOUND CARE REVIEWED LABS REVIEWED HD IN AM PRIOR TO DISCHARGE
[2017-04-18] MEDS: ATORVASTATIN CA 10 MG TABLET (FP) PO SCH (22:20)
[2017-04-18] MEDS: ZOLPIDEM TARTRATE 5 MG TABLET PO PRN (22:20)
[2017-04-19] MEDS: METOCLOPRAMIDE HCL 10 MG TABLET (FP) PO SCH ×3 (06:22→17:05)
[2017-04-19] MEDS: INSULIN SLIDING SCALE (NOVOLOG) 1 VIAL SQ SCH ×3 (06:24→17:05)
[2017-04-19] MEDS: INSULIN (NOVOLOG MIX 70/30) 100 UNITS/ML MDV SQ SCH ×2 (06:24→17:06)
[2017-04-19] MEDS: CALCIUM ACETATE 667 MG CAPSULE (FP) PO SCH ×3 (07:49→17:05)
[2017-04-19] MEDS ORDERED: EPOETIN ALFA 10,000 UNIT/1 ML VIAL SQ ONE (09:00)
--- NOTE | 2017-04-19 09:25 | PN ---
Progress Note, Physician History of Present Illness: Awake, alert No c/o foot pain No fever/ chills Afebrile WBC WNL - Current Medication List Current Medications: Active Medications Acetaminophen (Tylenol -) 650 mg PO Q4H PRN PRN Reason: PAIN Last Admin: 04/18/17 22:21 Dose: 650 mg Amlodipine Besylate (Norvasc -) 10 mg PO DAILY [facility] Last Admin: 04/18/17 11:02 Dose: 10 mg Aspirin (Asa -) 81 mg PO DAILY [facility] Last Admin: 04/18/17 11:00 Dose: 81 mg Atorvastatin Calcium (Lipitor -) 10 mg PO HS [facility] Last Admin: 04/18/17 22:20 Dose: 10 mg Calcium Acetate (Phoslo -) 667 mg PO TIDCM [facility] Last Admin: 04/19/17 07:49 Dose: Not Given Fentanyl (Sublimaze Injection -) 25 mcg IVPUSH [id number] PRN PRN Reason: PAIN Stop: 04/19/17 13:29 Last Admin: 04/16/17 14:00 Dose: 25 mcg Insulin Aspart (Novolog Vial Sliding Scale -) 1 vial SQ TIDAC [facility] PRN Reason: Protocol Last Admin: 04/19/17 06:24 Dose: Not Given Insulin Aspart (Novolog Mix 70/30 Vial) 30 units SQ BIDI [facility] Last Admin: 04/19/17 06:24 Dose: Not Given Losartan Potassium (Cozaar -) 50 mg PO DAILY [facility] Last Admin: 04/18/17 11:26 Dose: 50 mg Metoclopramide HCl (Reglan -) 5 mg PO TIDAC [facility] Last Admin: 04/19/17 06:22 Dose: 5 mg Metoprolol Tartrate (Lopressor -) 25 mg PO BID [facility] Last Admin: 04/18/17 22:20 Dose: 25 mg Mupirocin (Bactroban 2% Ointment -) 1 applic TP BID [facility] Last Admin: 04/18/17 23:26 Dose: Not Given Oxycodone HCl (Roxicodone -) 10 mg PO Q4H PRN PRN Reason: PAIN Last Admin: 04/18/17 22:20 Dose: 10 mg Pantoprazole Sodium (Protonix -) 40 mg PO BID [facility] Last Admin: 04/18/17 22:19 Dose: 40 mg Rivaroxaban (Xarelto -) 15 mg PO DAILY [facility] Last Admin: 04/18/17 11:03 Dose: 15 mg Sucralfate (Carafate Oral Suspension -) 1 gm PO QID [facility] Last Admin: 04/18/17 22:19 Dose: 1 gm Zolpidem Tartrate (Ambien -) 5 mg PO HS PRN Last Admin: 04/18/17 22:20 Dose: 5 mg - Objective Vital Signs: Vital Signs Temperature 97.9 F 04/19/17 07:55 Pulse Rate 69 04/19/17 08:30 Respiratory Rate 18 04/19/17 08:30 Blood Pressure 132/68 04/19/17 08:30 O2 Sat by Pulse Oximetry (%) 100 04/18/17 21:00 Constitutional: Yes: No Distress Eyes: Yes: Conjunctiva Clear Cardiovascular: Yes: Regular Rate and Rhythm, S1, S2 Respiratory: Yes: Diminished Gastrointestinal: Yes: Normal Bowel Sounds, Soft, Abdomen, Obese, Other ( distended, non-tender). No: Tenderness Extremities: Yes: Other (L LE/ foot swelling Dorsal L foot wound packed. Bloody drainage on dressing) Labs: CBC, BMP 04/18/17 11:25 04/18/17 10:30 INR, PTT INR 1.10 (0.82-1.09) 04/11/17 03:00 Assessment/Plan Osteomyelitis L foot PVD s/p angioplasty, 1st MTH resection ESRD Continue ceftriaxone Upon discharge to receive cefazolin post each HD (2gm Tu/ 2gm Th/ 3gm Sat)
[2017-04-19] MEDS ORDERED: CEFTRIAXONE 1 GM in DEXTROSE 5%-WATER - 100 ML IVPB SCH (10:00)
--- NOTE | 2017-04-19 10:32 | DS ---
Physical Examination Vital Signs: Vital Signs Temperature 97.9 F 04/19/17 07:55 Pulse Rate 69 04/19/17 08:30 Respiratory Rate 18 04/19/17 08:30 Blood Pressure 132/68 04/19/17 08:30 O2 Sat by Pulse Oximetry (%) 100 04/18/17 21:00 Labs: CBC, BMP 04/18/17 11:25 04/18/17 10:30 Discharge Summary Reason For Visit: [facility] Current Active Problems Anemia associated with chronic renal failure (Acute) Cellulitis of foot (Acute) Diabetic gangrene (Acute) Osteomyelitis (Acute) Sleep apnea (Acute) - Instructions Referrals: Singh Sandra MD [Primary Care Provider] - - Home Medications Comprehensive Discharge Medication List: Ambulatory Orders Aspirin 81 mg PO DAILY #0 tab.chew 01/07/13 Esomeprazole Mag Trihydrate [Nexium] 40 mg PO DAILY 10/10/14 Amlodipine Besylate [Norvasc -] 10 mg PO DAILY tablet 06/14/16 Atorvastatin Ca [Lipitor] 10 mg PO HS #30 tablet 06/14/16 Insulin Glargine,Hum.rec.anlog [Lantus (10mL VIAL) -] 30 units SQ HS 07/05/16 Albuterol 0.083% Nebulizer Faviola [Ventolin 0.083% Nebulizer Soln -] 1 amp NEB Q4H PRN #0 amp 08/10/16 Insulin (Novolog 70/30) [Novolog Mix 70/30 Flexpen -] 30 units SQ BID 02/21/17 Benzonatate 200 mg PO DAILY 04/09/17 Calcium Acetate 667 mg PO DAILY 04/09/17 Esomeprazole Magnesium 40 mg PO DAILY 04/09/17 Folic Acid/Vit Bcomp,C [Piedad-Kelly Tablet] 0.8 mg PO DAILY 04/09/17 Furosemide [Lasix] 80 mg PO DAILY 04/09/17 Insulin Glargine,Hum.rec.anlog [Lantus (10mL VIAL) -] 30 units SQ AM 04/09/17 Labetalol HCl [Normodyne -] 200 mg PO BID 04/09/17 Metoprolol Succinate [Toprol Xl -] 25 mg PO DAILY 04/09/17 Montelukast Na [Singulair -] 10 mg PO DAILY 04/09/17 Sevelamer Carbonate [Renvela -] 800 mg PO TID 04/09/17
--- NOTE | 2017-04-19 11:39 | PN ---
Progress Note, Physician Chief Complaint: seen and examined in HD feels well no complaints - Current Medication List Current Medications: Active Medications Acetaminophen (Tylenol -) 650 mg PO Q4H PRN PRN Reason: PAIN Last Admin: 04/18/17 22:21 Dose: 650 mg Amlodipine Besylate (Norvasc -) 10 mg PO DAILY [facility] Last Admin: 04/18/17 11:02 Dose: 10 mg Aspirin (Asa -) 81 mg PO DAILY [facility] Last Admin: 04/18/17 11:00 Dose: 81 mg Atorvastatin Calcium (Lipitor -) 10 mg PO HS [facility] Last Admin: 04/18/17 22:20 Dose: 10 mg Calcium Acetate (Phoslo -) 667 mg PO TIDCM [facility] Last Admin: 04/19/17 07:49 Dose: Not Given Fentanyl (Sublimaze Injection -) 25 mcg IVPUSH [id number] PRN PRN Reason: PAIN Stop: 04/19/17 13:29 Last Admin: 04/16/17 14:00 Dose: 25 mcg CEFTRIAXONE 1 G/50 ML PREMIX (Ceftriaxone 1 Gm-D5w Bag) 50 mls @ 100 mls/hr IVPB DAILY [facility] Insulin Aspart (Novolog Vial Sliding Scale -) 1 vial SQ TIDAC [facility] PRN Reason: Protocol Last Admin: 04/19/17 06:24 Dose: Not Given Insulin Aspart (Novolog Mix 70/30 Vial) 30 units SQ BIDI [facility] Last Admin: 04/19/17 06:24 Dose: Not Given Losartan Potassium (Cozaar -) 50 mg PO DAILY [facility] Last Admin: 04/18/17 11:26 Dose: 50 mg Metoclopramide HCl (Reglan -) 5 mg PO TIDAC [facility] Last Admin: 04/19/17 06:22 Dose: 5 mg Metoprolol Tartrate (Lopressor -) 25 mg PO BID [facility] Last Admin: 04/18/17 22:20 Dose: 25 mg Mupirocin (Bactroban 2% Ointment -) 1 applic TP BID [facility] Last Admin: 04/18/17 23:26 Dose: Not Given Oxycodone HCl (Roxicodone -) 10 mg PO Q4H PRN PRN Reason: PAIN Last Admin: 04/18/17 22:20 Dose: 10 mg Pantoprazole Sodium (Protonix -) 40 mg PO BID [facility] Last Admin: 04/18/17 22:19 Dose: 40 mg Rivaroxaban (Xarelto -) 15 mg PO DAILY [facility] Last Admin: 04/18/17 11:03 Dose: 15 mg Sucralfate (Carafate Oral Suspension -) 1 gm PO QID [facility] Last Admin: 04/18/17 22:19 Dose: 1 gm Zolpidem Tartrate (Ambien -) 5 mg PO HS PRN Last Admin: 04/18/17 22:20 Dose: 5 mg - Objective Vital Signs: Vital Signs Temperature 97.9 F 04/19/17 07:55 Pulse Rate 70 04/19/17 10:30 Respiratory Rate 18 04/19/17 10:30 Blood Pressure 142/73 04/19/17 10:30 O2 Sat by Pulse Oximetry (%) 100 04/18/17 21:00 Constitutional: Yes: No Distress Cardiovascular: Yes: Regular Rate and Rhythm Respiratory: Yes: Diminished Gastrointestinal: Yes: Normal Bowel Sounds, Soft. No: Tenderness Extremities: Yes: Other (left foot dressing in place) Edema: Yes Labs: CBC, BMP 04/18/17 11:25 04/18/17 10:30 INR, PTT INR 1.10 (0.82-1.09) 04/11/17 03:00 Problem List - Problems (1) Anemia associated with chronic renal failure Code(s): D63.1 - ANEMIA IN CHRONIC KIDNEY DISEASE (2) Diabetic gangrene Code(s): E11.52 - TYPE 2 DIABETES W DIABETIC PERIPHERAL ANGIOPATHY W GANGRENE (3) Osteomyelitis Code(s): M86.9 - OSTEOMYELITIS, UNSPECIFIED Qualifiers: Osteomyelitis location: foot Laterality: left (4) Sleep apnea Code(s): G47.30 - SLEEP APNEA, UNSPECIFIED (5) Diabetes Code(s): E11.9 - TYPE 2 DIABETES MELLITUS WITHOUT COMPLICATIONS Qualifiers: Diabetes mellitus type: type 2 Diabetes mellitus complication status: with unspecified complications (6) ESRD (end stage renal disease) Code(s): N18.6 - END STAGE RENAL DISEASE Assessment/Plan PLAN Non healing Left foot ulcer Diabetes ESRD on HD PAD HTN CAD -- iv antibiotics- will need intermediate --antibiotics during HD --Pt is on O2 at home- uses it as needed -- seen by Pulmonary-- will need outpt sleep study -- pain control -- HD per Renal -- continue with diabetic control -- DVT prophylaxis-- Xarelto -- awaiting wound vac prior to discharge - possible Friday
--- NOTE | 2017-04-19 11:51 | PN ---
Progress Note (short form) - Note Progress Note: RENAL Pt seen for Dr Lloyd He was on hemodialysis. Has an infected foot and is on antibiotics He is however well otherwise Denies complaints Last Vital Signs Temp Pulse Resp BP Pulse Ox 97.9 F 70 18 142/73 100 04/19/17 07:55 04/19/17 10:30 04/19/17 10:30 04/19/17 10:30 04/18/17 21:00 lungs clear cvs s1s2 rr abd soft ext has a missing middle finger on right hand, left foot is dressed neuro a+ox3 CBC, BMP 04/18/17 11:25 04/18/17 10:30 Current Medications Generic Name Dose Route Start Last Admin Trade Name Freq PRN Reason Stop Dose Admin Acetaminophen 650 mg 04/16/17 13:37 04/18/17 22:21 Tylenol - PO 650 mg Q4H PRN Administration PAIN Amlodipine Besylate 10 mg 04/17/17 10:00 04/18/17 11:02 Norvasc - PO 10 mg DAILY [facility] Administration Aspirin 81 mg 04/17/17 10:00 04/18/17 11:00 Asa - PO 81 mg DAILY [facility] Administration Atorvastatin Calcium 10 mg 04/16/17 22:00 04/18/17 22:20 Lipitor - PO 10 mg HS [facility] Administration Calcium Acetate 667 mg 04/16/17 17:30 04/19/17 07:49 Phoslo - PO Not Given TIDCM [facility] Fentanyl 25 mcg 04/16/17 13:28 04/16/17 14:00 Sublimaze Injection - IVPUSH 04/19/17 13:29 25 mcg [id number] PRN Administration PAIN CEFTRIAXONE 1 G/50 ML PREMIX 50 mls @ 100 mls/hr 04/19/17 10:00 Ceftriaxone 1 Gm-D5w Bag IVPB DAILY [facility] Insulin Aspart 1 vial 04/16/17 16:30 04/19/17 06:24 Novolog Vial Sliding Scale - SQ Not Given TIDAC [facility] Protocol Insulin Aspart 30 units 04/16/17 16:30 04/19/17 06:24 Novolog Mix 70/30 Vial SQ Not Given BIDI [facility] Losartan Potassium 50 mg 04/17/17 10:00 04/18/17 11:26 Cozaar - PO 50 mg DAILY [facility] Administration Metoclopramide HCl 5 mg 04/16/17 16:30 04/19/17 06:22 Reglan - PO 5 mg TIDAC [facility] Administration Metoprolol Tartrate 25 mg 04/16/17 22:00 04/18/17 22:20 Lopressor - PO 25 mg BID [facility] Administration Mupirocin 1 applic 04/16/17 22:00 04/18/17 23:26 Bactroban 2% Ointment - TP Not Given BID [facility] Oxycodone HCl 10 mg 04/16/17 13:37 04/18/17 22:20 Roxicodone - PO 10 mg Q4H PRN Administration PAIN Pantoprazole Sodium 40 mg 04/16/17 22:00 04/18/17 22:19 Protonix - PO 40 mg BID [facility] Administration Rivaroxaban 15 mg 04/18/17 10:00 04/18/17 11:03 Xarelto - PO 15 mg DAILY [facility] Administration Sucralfate 1 gm 04/16/17 18:00 04/18/17 22:19 Carafate Oral Suspension - PO 1 gm QID [facility] Administration Zolpidem Tartrate 5 mg 04/16/17 13:37 04/18/17 22:20 Ambien - PO 5 mg HS PRN Administration IMPRESSION esrd htn infected ulcer PLAN continue antibiotics dc sucralfate given aluminum content MV
[2017-04-19] MEDS ORDERED: PT OWN MED DRAWER 7, Y5N ONE ×3 (12:04→17:24)
[2017-04-19] MEDS: CEFTRIAXONE 1 G/50 ML PREMIX 50 ML IVPB SCH (12:15)
[2017-04-19] MEDS: PANTOPRAZOLE 40 MG TABLET (FP) PO SCH ×2 (12:15→21:52)
[2017-04-19] MEDS: LOSARTAN POTASSIUM 50 MG TABLET (FP) PO SCH (12:16)
[2017-04-19] MEDS: amLODIPine BESYLATE 10 MG TABLET (FP) PO SCH (12:16)
[2017-04-19] MEDS: MUPIROCIN 2% TOPICAL OINTMENT 22 GM TUBE TP SCH ×2 (12:16→21:49)
[2017-04-19] MEDS: METOPROLOL TARTRATE 25 MG TABLET (FP) PO SCH ×2 (12:16→21:52)
[2017-04-19] MEDS: ASPIRIN 81 MG CHEWABLE TABLETS PO SCH (12:16)
[2017-04-19] MEDS: RIVAROXABAN 15 MG TABLET PO SCH (12:16)
[2017-04-19] MEDS: SUCRALFATE 1 GM/10 ML UNIT DOSE CUPS PO SCH (12:26)
[2017-04-19] MEDS: ACETAMINOPHEN 325 MG TABLET (FP) PO PRN ×2 (18:39→21:51)
--- NOTE | 2017-04-19 20:07 | FALL ---
Fall Exam - Event Witnessed fall: Yes Location of Fall: Patient Room Fall from: While ambulating (ambulating from bed to where to next room, he was being helped by his nurse to wear his ortho surgical shoe and it was a mechanical fall onto his elbows and coccyx. no spinal tenderness, no focal neurological findings, fine basilar crackles. no range of motion restrictions at elbows, nonttp, VSS) - Pre-Fall Fall Risk: High Risk Mental Status: Alert, Oriented, Cooperative Current Medications: Current Medications Generic Name Dose Route Start Last Admin Trade Name Freq PRN Reason Stop Dose Admin Acetaminophen 650 mg 04/16/17 13:37 04/19/17 18:39 Tylenol - PO 650 mg Q4H PRN Administration PAIN Amlodipine Besylate 10 mg 04/17/17 10:00 04/19/17 12:16 Norvasc - PO 10 mg DAILY [facility] Administration Aspirin 81 mg 04/17/17 10:00 04/19/17 12:16 Asa - PO 81 mg DAILY [facility] Administration Atorvastatin Calcium 10 mg 04/16/17 22:00 04/18/17 22:20 Lipitor - PO 10 mg HS [facility] Administration Calcium Acetate 667 mg 04/16/17 17:30 04/19/17 17:05 Phoslo - PO 667 mg TIDCM [facility] Administration CEFTRIAXONE 1 G/50 ML PREMIX 50 mls @ 100 mls/hr 04/19/17 10:00 04/19/17 12:15 Ceftriaxone 1 Gm-D5w Bag IVPB 100 mls/hr DAILY [facility] Administration Insulin Aspart 1 vial 04/16/17 16:30 04/19/17 17:05 Novolog Vial Sliding Scale - SQ 8 units TIDAC [facility] Administration Protocol Insulin Aspart 30 units 04/16/17 16:30 04/19/17 17:06 Novolog Mix 70/30 Vial SQ 30 unit BIDI [facility] Administration Losartan Potassium 50 mg 04/17/17 10:00 04/19/17 12:16 Cozaar - PO 50 mg DAILY [facility] Administration Metoclopramide HCl 5 mg 04/16/17 16:30 04/19/17 17:05 Reglan - PO 5 mg TIDAC [facility] Administration Metoprolol Tartrate 25 mg 04/16/17 22:00 04/19/17 12:16 Lopressor - PO 25 mg BID [facility] Administration Mupirocin 1 applic 04/16/17 22:00 04/19/17 12:16 Bactroban 2% Ointment - TP Not Given BID [facility] Pantoprazole Sodium 40 mg 04/16/17 22:00 04/19/17 12:15 Protonix - PO 40 mg BID [facility] Administration Rivaroxaban 15 mg 04/18/17 10:00 04/19/17 12:16 Xarelto - PO 15 mg DAILY [facility] Administration 04/19/17 20:04 - Post-Fall Patient Outcome: Abrasion/Bruise (to right elbow, small 1cm abrasion with scant bleeding, gauze applied) Treatment: Dressing Vital Signs: Vital Signs Temperature 98.4 F 04/19/17 19:46 Pulse Rate 68 04/19/17 19:46 Respiratory Rate 18 04/19/17 19:46 Blood Pressure 148/76 04/19/17 19:46 O2 Sat by Pulse Oximetry (%) 98 04/19/17 14:16 LOC Post-Fall: Unchanged, Awake, Alert, Oriented Identify factors for HIGH RISK for Head Injury: Pt on anticoagulant (on xarelto)
[2017-04-19] MEDS: oxyCODONE HCL 5 MG TABLET PO PRN (21:50)
[2017-04-19] MEDS: ZOLPIDEM TARTRATE 5 MG TABLET PO PRN (21:50)
[2017-04-19] MEDS: ATORVASTATIN CA 10 MG TABLET (FP) PO SCH (21:52)
[2017-04-20] MEDS ORDERED: INSULIN (NOVOLOG) ASPART 100 UNITS/ML 10ML VIAL ONE ×4 (05:20→17:57)
[2017-04-20] MEDS: INSULIN SLIDING SCALE (NOVOLOG) 1 VIAL SQ SCH ×3 (06:09→17:36)
[2017-04-20] MEDS: METOCLOPRAMIDE HCL 10 MG TABLET (FP) PO SCH ×3 (06:10→17:37)
[2017-04-20] MEDS: oxyCODONE HCL 5 MG TABLET PO PRN ×2 (06:12→22:30)
[2017-04-20] MEDS: ACETAMINOPHEN 325 MG TABLET (FP) PO PRN (06:13)
[2017-04-20] MEDS: INSULIN (NOVOLOG MIX 70/30) 100 UNITS/ML MDV SQ SCH ×2 (07:57→17:37)
[2017-04-20] MEDS: CALCIUM ACETATE 667 MG CAPSULE (FP) PO SCH ×3 (07:58→17:37)
--- NOTE | 2017-04-20 09:00 | PN ---
Progress Note, Physician Chief Complaint: Events noted Had lost balance and fell yesterday after he was being transferred from one room to the other and was trying to get his surgical shoe on No head injury has some back pain , not too severe Xray back-- no fracture - Current Medication List Current Medications: Active Medications Acetaminophen (Tylenol -) 650 mg PO Q4H PRN PRN Reason: PAIN Last Admin: 04/20/17 06:13 Dose: 650 mg Amlodipine Besylate (Norvasc -) 10 mg PO DAILY [facility] Last Admin: 04/19/17 12:16 Dose: 10 mg Aspirin (Asa -) 81 mg PO DAILY [facility] Last Admin: 04/19/17 12:16 Dose: 81 mg Atorvastatin Calcium (Lipitor -) 10 mg PO HS [facility] Last Admin: 04/19/17 21:52 Dose: 10 mg Calcium Acetate (Phoslo -) 667 mg PO TIDCM [facility] Last Admin: 04/20/17 07:58 Dose: 667 mg CEFTRIAXONE 1 G/50 ML PREMIX (Ceftriaxone 1 Gm-D5w Bag) 50 mls @ 100 mls/hr IVPB DAILY [facility] Last Admin: 04/19/17 12:15 Dose: 100 mls/hr Insulin Aspart (Novolog Vial Sliding Scale -) 1 vial SQ TIDAC [facility] PRN Reason: Protocol Last Admin: 04/20/17 06:09 Dose: Not Given Insulin Aspart (Novolog Mix 70/30 Vial) 30 units SQ BIDI [facility] Last Admin: 04/20/17 07:57 Dose: 30 unit Losartan Potassium (Cozaar -) 50 mg PO DAILY [facility] Last Admin: 04/19/17 12:16 Dose: 50 mg Metoclopramide HCl (Reglan -) 5 mg PO TIDAC [facility] Last Admin: 04/20/17 06:10 Dose: 5 mg Metoprolol Tartrate (Lopressor -) 25 mg PO BID [facility] Last Admin: 04/19/17 21:52 Dose: 25 mg Mupirocin (Bactroban 2% Ointment -) 1 applic TP BID [facility] Last Admin: 04/19/17 21:49 Dose: Not Given Oxycodone HCl (Roxicodone -) 10 mg PO Q4H PRN PRN Reason: PAIN Last Admin: 04/20/17 06:12 Dose: 10 mg Pantoprazole Sodium (Protonix -) 40 mg PO BID [facility] Last Admin: 04/19/17 21:52 Dose: 40 mg Rivaroxaban (Xarelto -) 15 mg PO DAILY [facility] Last Admin: 04/19/17 12:16 Dose: 15 mg Zolpidem Tartrate (Ambien -) 5 mg PO HS PRN PRN Reason: INSOMNIA Last Admin: 04/19/17 21:50 Dose: 5 mg - Objective Vital Signs: Vital Signs Temperature 97.7 F 04/20/17 08:47 Pulse Rate 77 04/20/17 08:47 Respiratory Rate 18 04/20/17 08:47 Blood Pressure 137/70 04/20/17 08:47 O2 Sat by Pulse Oximetry (%) 98 04/19/17 21:00 Constitutional: Yes: No Distress, Calm Cardiovascular: Yes: Regular Rate and Rhythm Respiratory: Yes: Diminished Gastrointestinal: Yes: Normal Bowel Sounds, Soft, Abdomen, Obese. 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 (3) Osteomyelitis Code(s): M86.9 - OSTEOMYELITIS, UNSPECIFIED Qualifiers: Osteomyelitis location: foot Laterality: left (4) Sleep apnea Code(s): G47.30 - SLEEP APNEA, UNSPECIFIED (5) Diabetes Code(s): E11.9 - TYPE 2 DIABETES MELLITUS WITHOUT COMPLICATIONS Qualifiers: Diabetes mellitus type: type 2 Diabetes mellitus complication status: with unspecified complications (6) ESRD (end stage renal disease) Code(s): N18.6 - END STAGE RENAL DISEASE Assessment/Plan PLAN Non healing Left foot ulcer Diabetes ESRD on HD PAD HTN CAD -- iv antibiotics- will need intermission coordinator --antibiotics during HD --Pt is on O2 at home- uses it as needed -- seen by Pulmonary-- will need outpt sleep study -- pain control -- HD per Renal -- continue with diabetic control -- DVT prophylaxis-- Xarelto -- awaiting wound vac prior to discharge -- pt requested that he go home today and that [facility] bring his supplies there to his house on Friday of possible-- will ask renal social worker
[2017-04-20] MEDS ORDERED: PT OWN MED DRAWER 7, Y5N ONE (09:33)
[2017-04-20] MEDS: ASPIRIN 81 MG CHEWABLE TABLETS PO SCH (09:35)
[2017-04-20] MEDS: PANTOPRAZOLE 40 MG TABLET (FP) PO SCH ×2 (09:35→22:30)
[2017-04-20] MEDS: amLODIPine BESYLATE 10 MG TABLET (FP) PO SCH (09:35)
[2017-04-20] MEDS: LOSARTAN POTASSIUM 50 MG TABLET (FP) PO SCH (09:35)
[2017-04-20] MEDS: LIDOCAINE 5% TOPICAL PATCH TP SCH (09:36)
[2017-04-20] MEDS: METOPROLOL TARTRATE 25 MG TABLET (FP) PO SCH ×2 (09:36→22:30)
[2017-04-20] MEDS: MUPIROCIN 2% TOPICAL OINTMENT 22 GM TUBE TP SCH ×2 (09:36→22:33)
[2017-04-20] MEDS: CEFTRIAXONE 1 G/50 ML PREMIX 50 ML IVPB SCH (09:36)
[2017-04-20] MEDS: RIVAROXABAN 15 MG TABLET PO SCH (10:32)
[2017-04-20] MEDS ORDERED: LIDOCAINE PATCH REMOVAL MC SCH (22:00)
[2017-04-20] MEDS: ATORVASTATIN CA 10 MG TABLET (FP) PO SCH (22:29)
[2017-04-20] MEDS: ZOLPIDEM TARTRATE 5 MG TABLET PO PRN (22:30)
[2017-04-21] MEDS: oxyCODONE HCL 5 MG TABLET PO PRN ×2 (06:21→17:20)
[2017-04-21] MEDS: INSULIN SLIDING SCALE (NOVOLOG) 1 VIAL SQ SCH ×3 (06:22→16:50)
[2017-04-21] MEDS: METOCLOPRAMIDE HCL 10 MG TABLET (FP) PO SCH ×3 (06:22→17:10)
[2017-04-21] MEDS: INSULIN (NOVOLOG MIX 70/30) 100 UNITS/ML MDV SQ SCH ×2 (06:58→17:10)
[2017-04-21] MEDS ORDERED: INSULIN (NOVOLOG MIX 70/30) 100 UNITS/ML MDV SQ ONE (07:01)
[2017-04-21] MEDS: CALCIUM ACETATE 667 MG CAPSULE (FP) PO SCH ×3 (08:55→17:10)
[2017-04-21] MEDS: LIDOCAINE 5% TOPICAL PATCH TP SCH (09:02)
[2017-04-21] MEDS: PANTOPRAZOLE 40 MG TABLET (FP) PO SCH (09:03)
[2017-04-21] MEDS: ASPIRIN 81 MG CHEWABLE TABLETS PO SCH (09:03)
[2017-04-21] MEDS: CEFTRIAXONE 1 G/50 ML PREMIX 50 ML IVPB SCH (09:03)
[2017-04-21] MEDS: MUPIROCIN 2% TOPICAL OINTMENT 22 GM TUBE TP SCH (09:04)
[2017-04-21] MEDS ORDERED: PT OWN MED DRAWER 7, Y5N ONE (09:07)
[2017-04-21] MEDS: RIVAROXABAN 15 MG TABLET PO SCH (09:08)
--- NOTE | 2017-04-21 09:15 | DS ---
Physical Examination Vital Signs: Vital Signs Temperature 98.2 F 04/21/17 05:51 Pulse Rate 73 04/21/17 05:51 Respiratory Rate 20 04/21/17 05:51 Blood Pressure 131/68 04/21/17 05:51 O2 Sat by Pulse Oximetry (%) 96 04/20/17 21:00 Findings/Remarks: feels ok wants to go home sitting in chair requests to be dialized today before discharge -- regular day tomorrow but says very busy tomorrow Constitutional: Yes: No Distress, Calm Eyes: Yes: Conjunctiva Clear Neck: Yes: Supple Cardiovascular: Yes: Regular Rate and Rhythm Respiratory: Yes: CTA Bilaterally Gastrointestinal: Yes: Soft Wound/Incision: Yes: Dressing Dry and Intact Neurological: Yes: Alert Psychiatric: Yes: Alert Labs: CBC, BMP 04/18/17 11:25 04/18/17 10:30 Discharge Summary Reason For Visit: ULCER Current Active Problems Anemia associated with chronic renal failure (Acute) Cellulitis of foot (Acute) Diabetic gangrene (Acute) Osteomyelitis (Acute) Sleep apnea (Acute) Hospital Course: 56 yrs old male from Dr Sandra office admitted for left foot non healing ulcer- - 3 weeks Pt has extensive H/O CAD, PAD, DM , HTN, ESRD on HD pt underwent debridment Angiogram done- Local disease in [facility]PA Pathology - osteo pt followed by i/d, vascula. wound vac ordered Anticipate d/c today -- after dialysis will discuss with renal for pts request for dialysis today if possible. discussed with [facility] staff/ assistant case manager. Pt will need 6 weeks of Cefazolin after each dialysis. pt to follow with his pmd/ wound care team , dialysis and vascular as advised pt in agreement Time spend in examining/ preparing discharge/ documenting and coordating care- 40 min Condition: Improved - Instructions Referrals: Singh Sandra MD [Primary Care Provider] - Disposition: HOME - Home Medications Comprehensive Discharge Medication List: Ambulatory Orders Aspirin 81 mg PO DAILY #0 tab.chew 01/07/13 Esomeprazole Mag Trihydrate [Nexium] 40 mg PO DAILY 10/10/14 Amlodipine Besylate [Norvasc -] 10 mg PO DAILY tablet 06/14/16 Atorvastatin Ca [Lipitor] 10 mg PO HS #30 tablet 06/14/16 Insulin Glargine,Hum.rec.anlog [Lantus (10mL VIAL) -] 30 units SQ HS 07/05/16 Albuterol 0.083% Nebulizer Faviola [Ventolin 0.083% Nebulizer Soln -] 1 amp NEB Q4H PRN #0 amp 08/10/16 Benzonatate 200 mg PO DAILY 04/09/17 Calcium Acetate 667 mg PO DAILY 04/09/17 Folic Acid/Vit Bcomp,C [Piedad-Kelly Tablet] 0.8 mg PO DAILY 04/09/17 Furosemide [Lasix] 80 mg PO DAILY 04/09/17 Insulin Glargine,Hum.rec.anlog [Lantus (10mL VIAL) -] 30 units SQ AM 04/09/17 Labetalol HCl [Normodyne -] 200 mg PO BID 04/09/17 Metoprolol Succinate [Toprol XL -] 25 mg PO DAILY 04/09/17 Montelukast Na [Singulair -] 10 mg PO DAILY 04/09/17 Sevelamer Carbonate [Renvela -] 800 mg PO TID 04/09/17 Acetaminophen [Tylenol .Regular Strength -] 650 mg PO Q4H PRN #0 tablet Aspirin [ASA -] 81 mg PO DAILY tab.chew 04/21/17 Cefazolin Sodium in 0.9 % NaCl [Cefazolin-0.9% NaCl 2 G/10 ml] 2 gm IV TID #18 syringe 04/21/17 Insulin Sliding Scale [Novolog Vial Sliding Scale -] 1 vial SQ TIDAC units Lidocaine Patch Removal [Lidoderm Patch Removal] 1 each DAILY@2200 each Losartan Potassium [Cozaar -] 50 mg PO DAILY tablet 04/21/17 Metoclopramide HCl [Reglan -] 5 mg PO TIDAC tablet 04/21/17 Mupirocin Ointment [Bactroban 2% Ointment -] 1 applic TP BID applic 04/21/17 Oxycodone HCl [Roxicodone -] 10 mg PO Q6H PRN #30 tablet MDD 4 04/21/17 Rivaroxaban [Xarelto -] 15 mg PO DAILY tablet 04/21/17 Zolpidem Tartrate [Ambien] 5 mg PO HS PRN #30 tablet MDD 1 04/21/17
[2017-04-21] MEDS: METOPROLOL TARTRATE 25 MG TABLET (FP) PO SCH (16:50)
[2017-04-21] MEDS ORDERED: SODIUM HYPOCHLORITE 0.25%- 473 ML BULK BOTTLE TP SCH (17:00)
[2017-04-21] MEDS: amLODIPine BESYLATE 10 MG TABLET (FP) PO SCH (17:10)
[2017-04-21] MEDS: LOSARTAN POTASSIUM 50 MG TABLET (FP) PO SCH (17:11)
[2017-04-21] MEDS: ACETAMINOPHEN 325 MG TABLET (FP) PO PRN (17:21)
[2017-04-21 18:37] VITALS: BP 141/77; PULSE 76; TEMP 97.7
--- NOTE | 2017-04-29 08:37 | OP ---
DATE OF OPERATION: 04/15/2017 PREOPERATIVE DIAGNOSIS: Left 1st metatarsophalangeal joint diabetic ulcer with osteomyelitis. POSTOPERATIVE DIAGNOSIS: Left 1st metatarsophalangeal joint diabetic ulcer with osteomyelitis. PROCEDURE: Left foot debridement and lavage with 1st metatarsal head resection. SURGEON: Nico Rodrigues DPM MANAGER TERMINAL: None. ANESTHESIA: Local with IV sedation. HEMOSTASIS: Surgical/dissection. ESTIMATED BLOOD LOSS: Minimal. PATHOLOGY: Bone, left foot. COMPLICATIONS: None. The patient was brought to the operating room and placed on the operating table in the supine position. I elected to not use a tourniquet during the course of the procedure. Following the induction of IV sedation, local anesthesia was achieved utilizing 10 mL of 2% lidocaine plain. The left foot was then scrubbed, prepped, and draped in the usual aseptic fashion. Attention was directed to the left foot, where a dorsal 1st metatarsal diabetic ulcer probing to bone was visualized and appreciated. I began by performing an excisional debridement to the level of skin, subcutaneous tissue, and muscle utilizing a sterile 15 blade and sterile scissors. All necrotic liquefactive resected tissue was subsequently removed from the operative site and sent to Pathology for analysis. Of note, once debridement was performed the ulcer bed was probing to bone. Next, the surgical site was copiously irrigated with sterile saline. A 4-cm linear longitudinal incision was made overlying the 1st ray both proximal and distal to the dorsal ulcer. The incision was deepened using sharp and blunt dissection, taking care to retract vital neural and vascular structures, and all bleeders were cauterized and ligated as needed. Next, a dorsal linear capsulotomy was performed overlying the 1st metatarsophalangeal joint. The deep capsular and periosteal structures were reflected from the 1st metatarsal to expose the 1st metatarsal head. The 1st metatarsal head was resected utilizing the sagittal saw and removed from the operative site. The 1st metatarsal head was sectioned. A portion was sent for bone culture and the remainder was sent for bone pathology for analysis. The surgical site was copiously irrigated with sterile saline mixed with bacitracin. The skin was loosely coapted and maintained utilizing 3-0 nylon in a simple interrupted suture fashion. The dorsal diabetic ulcer was then packed utilizing 1/4-inch Iodoform packing. Following the conclusion of the procedure, the incision site was covered with Xeroform and a sterile compressive dressing was applied to the left foot consisting of sterile gauze, Neftaly, Kerlix, and an Steve wrap. The patient tolerated the procedure and anesthesia well without complications. He was transferred from the operating room to the recovery unit with vital signs stable and neural vasculature intact to the left foot. MARYELLEN JAEGER/[id number] cc: Podiatry
== END 2017-04-21 18:40 | disposition home or self-care (01) | DRG 252 ==
LOC: JER 16:53 → JERBED 18:45 → J7W 21:54
PROVIDERS: ADMIT Internal Medicine; ATTEND Internal Medicine
PROC: 0JBR0ZZ Excision of Left Foot Subcutaneous Tissue and Fascia, Open Approach (ICD-10-PCS; 2017-04-12)
PROC: 0QTP0ZZ Resection of Left Metatarsal, Open Approach (ICD-10-PCS; 2017-04-15)
PROC: 0JBP0ZZ Excision of Left Lower Leg Subcutaneous Tissue and Fascia, Open Approach (ICD-10-PCS; principal; 2017-04-15 12:00)
PROC: 047N3ZZ Dilation of Left Popliteal Artery, Percutaneous Approach (ICD-10-PCS; 2017-04-16)
PROC: 047L3ZZ Dilation of Left Femoral Artery, Percutaneous Approach (ICD-10-PCS; 2017-04-16)
PROC: B40GYZZ Plain Radiography of Left Lower Extremity Arteries using Other Contrast (ICD-10-PCS; 2017-04-16)
PROC: 5A1D90Z Performance of Urinary Filtration, Continuous, Greater than 18 hours Per Day (ICD-10-PCS; 2017-04-21)
DX: E11.52 Type 2 diabetes mellitus with diabetic peripheral angiopathy with gangrene (principal); N18.6 End stage renal disease; M86.172 Other acute osteomyelitis, left ankle and foot; I12.0 Hypertensive chronic kidney disease with stage 5 chronic kidney disease or end stage renal disease; L03.116 Cellulitis of left lower limb; E11.69 Type 2 diabetes mellitus with other specified complication; E11.621 Type 2 diabetes mellitus with foot ulcer; E11.22 Type 2 diabetes mellitus with diabetic chronic kidney disease; Z99.2 Dependence on renal dialysis; G47.30 Sleep apnea, unspecified; D63.1 Anemia in chronic kidney disease; I25.10 Atherosclerotic heart disease of native coronary artery without angina pectoris; I73.9 Peripheral vascular disease, unspecified
CPT/HCPCS: 36415; 70450-TC; 72100-TC; 73630-TC-LT; 75635-TC; 76000-TC; 80048; 80053; 82565; 84520; 85025; 85027; 85610; 85651; 86140; 86704; 86706; 86708; 86803; 86850; 86900; 86901; 87040; 87070; 87075; 87186; 87205; 87340; 88304-TC; 88311-TC; 93923; 93970-TC; 94760; 99282-25; G0480; J0885; J1644

== ENCOUNTER 2017-10-20 15:58 | Inpatient (IN) | payer OTHER ==
[2017-10-20 17:47] LABS: BASO % 1.1 % (0-2.0); EOS % 1.1 % (0-4.5); LYMPH % 14.8 % (8-40); MCHC 31.5 g/dl (32.0-35.9); MEAN CELL VOLUME 88.9 fl (80-96); MEAN PLT VOLUME 8.6 fl (7.5-11.1); MONO % 8.3 % (3.8-10.2); NEUT % 74.7 % (42.8-82.8); PLATELET COUNT 250 K/MM3 (134-434); RBC 2.37 M/mm3 (4.00-5.60); RDW 20.1 % (11.9-15.9); WHITE BLOOD COUNT 9.4 K/mm3 (4.0-10.0)
[2017-10-20 17:56] LABS: HEMOGLOBIN 6.6 GM/dL (11.7-16.9)
[2017-10-20 17:58] LABS: ADD RBC MORPHOLOGY YES
[2017-10-20 18:08] LABS: ALBUMIN 2.8 g/dl (3.4-5.0); ANION GAP 11 (8-16); BILIRUBIN,TOTAL 0.3 mg/dL (0.2-1.0); BLOOD UREA NITROGEN 60 mg/dL (7-18); CALCIUM 7.7 mg/dL (8.5-10.1); CHLORIDE 100 mmol/L (98-107); CO2 24 mmol/L (21-32); GLUCOSE,RANDOM 231 mg/dL (74-106); SGPT/ALT 47 U/L (12-78); SODIUM 135 mmol/L (136-145)
[2017-10-20 18:14] LABS: ALK PHOS 352 U/L (45-117)
--- NOTE | 2017-10-20 18:42 | PDOC ---
History of Present Illness - General Chief Complaint: Blood Pressure Problem Stated Complaint: BLOOD PRESSURE PROBLEM Time Seen by Provider: 10/20/17 16:19 History Source: Patient, Family Exam Limitations: No Limitations - History of Present Illness Initial Comments: This is a 57 YOM with h/o ESRD (on HD T//Sat without missed sessions) and recent CABG who p/w hematemesis and soft blood pressures. The patient states that he has been feeling lightheaded for the past few days and had mild blurred vision this morning, so he went to see his PCP Dr. Sandra. The patient reports that while in his PCP's office his blood pressure was lower than normal for him , but he was able to go home despite this fact. The patient subsequently became nauseated after going home, and he vomited one time this afternoon with a large amount of blood (states more than a cup of blood). He denies any recent fever, chills, diarrhea, constipation, abdominal pain, chest pain, SOB, passing out, or other new symptoms. Past History - Past Medical History Allergies/Adverse Reactions: Allergies Allergy/AdvReac Type Severity Reaction Status Date / Time No Known Drug Allergies Allergy Verified 11/04/17 11:52 Home Medications: Ambulatory Orders Amlodipine Besylate [Norvasc -] 10 mg PO DAILY tablet 06/14/16 Atorvastatin Ca [Lipitor] 10 mg PO HS #30 tablet 06/14/16 Insulin Glargine,Hum.rec.anlog [Lantus (10mL VIAL) -] 15 units SQ HS 07/05/16 Folic Acid/Vit B Complex and C [Piedad-Kelly Tablet] 0.8 mg PO DAILY 04/09/17 Metoprolol Succinate [Toprol XL -] 25 mg PO DAILY 04/09/17 Sevelamer Carbonate [Renvela -] 800 mg PO TID 04/09/17 Losartan Potassium [Cozaar -] 50 mg PO DAILY tablet 04/21/17 Oxycodone HCl 10 mg PO Q8H #20 tablet MDD 3 04/21/17 Sucralfate Oral Suspension [Carafate Oral Suspension -] 1 gm PO QID 30 Days # 120 ml 10/24/17 Zolpidem Tartrate [Ambien] 10 mg PO HS PRN MDD 1 11/04/17 Anemia: No Cardiac Disorders: Yes COPD: No DVT: (unknown) Diabetes: Yes Dialysis: Yes (esrd) GI Disorders: Yes HTN: Yes Hypercholesterolemia: Yes - Surgical History Cardiac Surgery: Yes Orthopedic Surgery: Yes (OR debridement left foot wound) - Immunization History Immunization Up to Date: No - Suicide/Smoking/Psychosocial Hx Smoking Status: No Smoking History: Never smoked Have you smoked in the past 12 months: No Number of Cigarettes Smoked Daily: 0 Information on smoking cessation initiated: No Hx Alcohol Use: No Drug/Substance Use Hx: No Substance Use Type: None Hx Substance Use Treatment: No Review of Systems - Review of Systems Able to Perform ROS?: Yes Constitutional: Yes: Chills. No: Fever, Unexplained wgt Loss HEENTM: No: Nose Congestion, Throat Pain Respiratory: No: Cough, Shortness of Breath Cardiac (ROS): Yes: Edema. No: Chest Pain, Palpitations ABD/GI: No: Constipated, Diarrhea, Nausea, Vomiting : No: Burning, Dysuria Musculoskeletal: No: Back Pain, Neck Pain Integumentary: No: Bruising, Rash Neurological: No: Headache, Numbness, Tingling, Weakness, Dizziness Endocrine: No: Unexplained Weight Gain, Unexplained Weight Loss *Physical Exam - Vital Signs Last Vital Signs Temp Pulse Resp BP Pulse Ox 97.7 F 82 16 93/49 100 10/20/17 16:20 10/20/17 17:36 10/20/17 17:36 10/20/17 17:36 10/20/17 17:36 - Physical Exam General Appearance: Yes: Nourished, Appropriately Dressed. No: Apparent Distress HEENT: positive: EOMI, ALEXANDRO, Normal Voice, Hearing Grossly Normal. negative: Scleral Icterus (R), Scleral Icterus (L), Nasal Congestion Neck: positive: Trachea midline, Supple. negative: Tender, Rigid Respiratory/Chest: positive: Lungs Clear, Normal Breath Sounds. negative: Respiratory Distress, Crackles, Rhonchi, Stridor, Wheezing Cardiovascular: positive: Regular Rhythm, Regular Rate, S1, S2, Other (RUE AV fistula with good bruit and thrill). negative: Edema, JVD, Murmur Gastrointestinal/Abdominal: positive: Normal Bowel Sounds, Soft, Distended (mild ). negative: Tender, Organomegaly, Pulsatile Mass, Guarding Lymphatic: positive: Other Musculoskeletal: positive: Normal Inspection. negative: Decreased Range of Motion, Vertebral Tenderness Extremity: positive: Normal Capillary Refill, Normal Inspection, Normal Range of Motion. negative: Tender, Cyanosis Integumentary: positive: Normal Color, Dry, Warm. negative: Erythema, Rash, Bruising Neurologic: positive: process automation engineer II-XII NML intact (grossly), Fully Oriented, Alert, Normal Mood/Affect, Normal Response, Motor Strength 5/5 Heart Score/ECG Review #1 Sinus rhythm, rate 83, borderline left axis deviation, T-wave inversions in I, aVL, V4-V6, otherwise unremarkable. ED Treatment Course - LABORATORY CBC & Chemistry Diagram: 10/23/17 14:30 10/23/17 14:30 - ADDITIONAL ORDERS Additional order review: Laboratory Results 10/20/17 10/20/17 17:29 17:29 PT with INR Cancelled INR Cancelled PTT (Actin FS) Cancelled Crossmatch See Detail 10/20/17 17:29 RBC 2.37 L D MCV 88.9 MCHC 31.5 L RDW 20.1 H D MPV 8.6 Neutrophils % 74.7 Lymphocytes % 14.8 Monocytes % 8.3 Eosinophils % 1.1 Basophils % 1.1 - RADIOLOGY Radiology Studies Ordered: Category Date Time Status CHEST X-RAY PORTABLE* [RAD] Stat Radiology 10/20/17 17:06 Taken Medical Decision Making - Medical Decision Making 57 YOM with ESRD p/w hypotension during dialysis. Initial Vital Signs Temp Pulse Resp BP Pulse Ox 97.7 F 83 16 95/42 95 10/20/17 16:20 10/20/17 16:20 10/20/17 16:20 10/20/17 16:20 10/20/17 16:20 Exam: abdomen mildly diffusely tender but soft, no guarding, no rigidity, DDX IBNLT: sepsis/shock (e.g. PNA, UTI, cellulitis, etc), tachyarrhythmia (e.g. VT, pSVT, re-entrant tachycardia, AF w/ RVR, AFL, MAT, VF), PE, ischemia (ACS), anxiety/panic, hypoxia, hemorrhage/anemia (e.g. ectopic, heavy menstruation, GIB , hematuria), tamponade, etc. W/U and TX ordered: EKG, IV, O2, Monitor, CBCD CMP Cardiac panel UA UCx CXR FOBT Coags T&S Protonix BNP Reassessment: exam unchanged. Laboratory Tests 10/20/17 10/20/17 10/20/17 17:27 17:27 17:29 WBC 9.4 D RBC 2.37 L D Hgb 6.6 L* D Hct 21.0 L D MCV 88.9 MCH 28.0 MCHC 31.5 L RDW 20.1 H D Plt Count 250 D MPV 8.6 Neutrophils % 74.7 Lymphocytes % 14.8 Monocytes % 8.3 Eosinophils % 1.1 Basophils % 1.1 Hypochromia 1+ Platelet Estimate Adequate Platelet Comment Polychromasia 1+ Anisocytosis 1+ Macrocytosis 1+ PT with INR INR PTT (Actin FS) Anticoagulation Therapy Puncture Site ABG pH ABG pCO2 at Pt Temp ABG pO2 at Pt Temp ABG HCO3 ABG O2 Sat (Measured) ABG O2 Content ABG Base Excess Ignacio Test VBG pH 7.32 POC VBG pCO2 53.5 H POC VBG pO2 21.6 L Mixed VBG HCO3 26.8 H Carboxyhemoglobin Methemoglobin O2 Delivery Device Oxygen Flow Rate Vent Mode Vent Rate Mechanical Rate Pressure Support Vent Sodium Potassium Chloride Carbon Dioxide Anion Gap BUN Creatinine Creat Clearance w eGFR POC Glucometer Random Glucose Lactic Acid Calcium Phosphorus Magnesium Total Bilirubin AST ALT Alkaline Phosphatase Creatine Kinase CK-MB (CK-2) Troponin I B-Natriuretic Peptide 12874.20 H Total Protein Albumin Stool Occult Blood Hep A IgM Ab Confirm Hepatitis A Ab Total Hep Bs Antigen Hep Bs Antibody Hep B Core Total Ab Hep C Ab Diagnostic Liver Fibrosis Interp Blood Type Antibody Screen Crossmatch 10/20/17 10/20/17 10/20/17 17:29 17:29 17:29 WBC RBC Hgb Hct MCV MCH MCHC RDW Plt Count MPV Neutrophils % Lymphocytes % Monocytes % Eosinophils % Basophils % Hypochromia Platelet Estimate Platelet Comment Polychromasia Anisocytosis Macrocytosis PT with INR Cancelled INR Cancelled PTT (Actin FS) Cancelled Anticoagulation Therapy Puncture Site ABG pH ABG pCO2 at Pt Temp ABG pO2 at Pt Temp ABG HCO3 ABG O2 Sat (Measured) ABG O2 Content ABG Base Excess Ignacio Test VBG pH POC VBG pCO2 POC VBG pO2 Mixed VBG HCO3 Carboxyhemoglobin Methemoglobin O2 Delivery Device Oxygen Flow Rate Vent Mode Vent Rate Mechanical Rate Pressure Support Vent Sodium 135 L Potassium 7.0 H* D Chloride 100 Carbon Dioxide 24 Anion Gap 11 BUN 60 H D Creatinine 7.6 H* Creat Clearance w eGFR 7.39 POC Glucometer Random Glucose 231 H Lactic Acid 3.3 H* Calcium 7.7 L Phosphorus Magnesium Total Bilirubin 0.3 D AST 37 ALT 47 D Alkaline Phosphatase 352 H Creatine Kinase 55 CK-MB (CK-2) 3.988 H Troponin I B-Natriuretic Peptide Total Protein 7.0 Albumin 2.8 L Stool Occult Blood Hep A IgM Ab Confirm Hepatitis A Ab Total Hep Bs Antigen Hep Bs Antibody Hep B Core Total Ab Hep C Ab Diagnostic Liver Fibrosis Interp Blood Type Antibody Screen Crossmatch 10/20/17 10/20/17 10/20/17 17:29 17:29 18:29 WBC RBC Hgb Hct MCV MCH MCHC RDW Plt Count MPV Neutrophils % Lymphocytes % Monocytes % Eosinophils % Basophils % Hypochromia Platelet Estimate Platelet Comment Polychromasia Anisocytosis Macrocytosis PT with INR INR PTT (Actin FS) Anticoagulation Therapy No Result Required. Puncture Site No Result Required. ABG pH 7.37 ABG pCO2 at Pt Temp 48.9 H ABG pO2 at Pt Temp 117.0 H ABG HCO3 27.6 H ABG O2 Sat (Measured) 98.8 ABG O2 Content 8.3 L* ABG Base Excess 2.7 H Ignacio Test Positive VBG pH POC VBG pCO2 POC VBG pO2 Mixed VBG HCO3 Carboxyhemoglobin 2.6 H Methemoglobin 1.6 H O2 Delivery Device No Result Required. Oxygen Flow Rate No Result Required. Vent Mode No Result Required. Vent Rate No Result Required. Mechanical Rate No Result Required. Pressure Support Vent No Result Required. Sodium Potassium Chloride Carbon Dioxide Anion Gap BUN Creatinine Creat Clearance w eGFR POC Glucometer Random Glucose Lactic Acid Calcium Phosphorus Magnesium Total Bilirubin AST ALT Alkaline Phosphatase Creatine Kinase CK-MB (CK-2) Troponin I 0.02 B-Natriuretic Peptide Total Protein Albumin Stool Occult Blood Hep A IgM Ab Confirm Hepatitis A Ab Total Hep Bs Antigen Hep Bs Antibody Hep B Core Total Ab Hep C Ab Diagnostic Liver Fibrosis Interp Blood Type A POSITIVE Antibody Screen Negative Crossmatch See Detail EKG: Sinus rhythm, rate 83, borderline left axis deviation, T-wave inversions in I, aVL, V4-V6, otherwise unremarkable. Patient markedly anemic. 10/20/17 19:[address] Alvarez who will consult and do endoscopy in the AM. Patient to be kept NPO overnight in preparation for endoscopy. Dr. Avlarez requests to be informed by the night team if the patient has repeat GIB. 10/20/17 19:[address] Barajas who accepts placement for the patient in the ICU. Spoke with ICU who needs no further information on the patient at this time. 10/20/17 19:07 MBMD sent to [facility] for admission with ICU placement. Consult orders placed for ICU placement to Dr. Barajas, GI for Dr. Alvarez. 10/20/17 19:[address] Lloyd who recommends transfusing 2 units as needed; do not delay for HD. He does need to be dialyzed tonight. Spoke with CLINICAL ATHLETIC INSTRUCTOR Taylor Velez; patient admitted to Dr. Evans and decision to admit order placed. *DC/Admit/Observation/Transfer Diagnosis at time of Disposition: Upper GI bleed, Hyperkalemia, ESRD (end stage renal disease) Anemia Qualifiers: Anemia type: unspecified type Qualified Code(s): D64.9 - Anemia, unspecified - Discharge Dispostion Condition at time of disposition: Guarded Decision to Admit order: Yes - Prescriptions - Referrals - Patient Instructions - Post Discharge Activity
--- NOTE | 2017-10-20 18:42 | PDOC ---
Attending Attestation - Resident Resident Name: Naranjo,Talia - ED Attending Attestation I have performed the following: I have examined & evaluated the patient, The case was reviewed & discussed with the resident, I agree w/resident's findings & plan, Exceptions are as noted - HPI HPI: 10/20/17 18:36 57-year-old male history of end-stage renal disease recent CABG one month ago with hypertension here today complaining of 1 episode of hematemesis as well as feeling lightheaded and low blood pressure. Patient states normally his blood pressure is 110-120 systolic. Today was down in the 90s denies any chest pains or shortness of breath no fevers or chills no dark black or bloody stools. With a single emesis he had today was clear fluid mixed with blood but denies abdominal pain no history of previous GI bleed no known history of esophageal varies and no known history of liver disease - Physicial Exam PE: 10/20/17 18:37 Patient is awake alert in no acute distress. Moist mucous membranes. Lung exam is clear bilaterally no audible wheezes or crackles. Heart is regular without any murmurs rubs or gallops abdomen is soft mildly distended nontender. Right upper extremity fistula is with a good thrill no overlying erythema. Lower extremities are without edema warm and well-perfused neuro patient is alert and oriented 3 moves all 4 extremities - Medical Decision Making 10/20/17 18:38 57-year-old male with recent CABG end-stage renal disease here today with hypotension differential includes sepsis from infection such as pneumonia, possible line infection, upper GI bleed possibly due to recent surgery or stress ulcer. Calm patient surgery such as pericardial pleural effusions are considered. Plan guaiac stool reflexes for upper GI bleeding CBC Protonix we'll consult GI chest x-ray to evaluate for effusion or infection Focused bedside ultrasound was performed of the cardiac. Patient to Mr. is good contractility there is no trace pericardial effusion noted no RV enlargement or strain pattern impression trace Effusion overall good contractility Bilateral lungs ultrasound with no pleural effusion
[2017-10-20 18:46] LABS: SGOT/AST 37 U/L (15-37)
[2017-10-20 18:47] LABS: CREATININE 7.6 mg/dL (0.7-1.3)
[2017-10-20] MEDS ORDERED: PANTOPRAZOLE SODIUM 40 MG in SODIUM CHLORIDE 100 ML IVPB ONE (18:48)
[2017-10-20] MEDS ORDERED: DEXTROSE 50%-WATER - 25 GM/50 ML VIAL IVPUSH ONE (18:59)
[2017-10-20] MEDS ORDERED: INSULIN REGULAR HUMAN 100 UNITS/ML *VIAL IVPUSH ONE (18:59)
[2017-10-20 19:08] LABS: ARTERIAL BLD GAS O2 SATURATION 98.8 % (90-98.9); ARTERIAL BLOOD GAS BASE EXCESS 2.7 meq/l (-2-2); ARTERIAL BLOOD GAS PCO2 48.9 mmHg (35-45); ARTERIAL BLOOD GAS pH 7.37 (7.35-7.45); CARBOXYHEMOGLOBIN 2.6 gm% (0.5-2.0)
[2017-10-20] MEDS ORDERED: SODIUM BICARBONATE 8.4% 50 MEQ/50 ML DISP.SYRIN IVPUSH ONE (19:10)
[2017-10-20 19:11] LABS: ALLENS TEST POSITIVE
[2017-10-20 19:13] LABS: VENOUS PC02 53.5 mmHg (38-52); VENOUS PH 7.32 (7.32-7.42)
[2017-10-20 19:14] LABS: VENOUS PO2 21.6 mmHg (28-48)
[2017-10-20] MEDS ORDERED: DEXTROSE 50%-WATER 25 GM/50 ML DISP.SYRIN ONE (19:29)
[2017-10-20] MEDS ORDERED: PANTOPRAZOLE SODIUM 40 MG/100 ML BAG IVPB ONE (19:30)
[2017-10-20] MEDS ORDERED: PANTOPRAZOLE SODIUM 40 MG VIAL ONE (19:30)
[2017-10-20] MEDS ORDERED: SODIUM BICARBONATE 8.4% 50 MEQ/50 ML VIAL ONE (19:30)
[2017-10-20] MEDS ORDERED: INSULIN REGULAR HUMAN 100 UNITS/ML *VIAL ONE (19:31)
--- NOTE | 2017-10-20 19:33 | HP ---
Admitting History and Physical - Primary Care Physician PCP: Singh Sandra - Admission Chief Complaint: Hematemesis History of Present Illness: This is a 57 y/o man with PMH ESRD ( HD-,,), CABG, HTN, HLD. Who presents to the ED with one episode of hematemesis while at his PCP's office, and low blood pressure. On arrival to the ED H/H 6.6/21.0, K 7.0. Patient denies fever, chills, CP, palpitations, AP, diarrhea, constipation, melena. History Source: Patient, Medical Record Limitations to Obtaining History: No Limitations - Past Medical History Cardiovascular: Yes: CAD, HTN, Hyperlipdemia. No: AFIB Renal/: Yes: Renal Failure, Hemodialysis Heme/Onc: Yes: Anemia Musculoskeletal: Yes: Other (peripheral vascular disease) Endocrine: Yes: Diabetes Mellitus - Past Surgical History Past Surgical History: Yes: AV Fistula/Graft - Smoking History Smoking history: Never smoked Have you smoked in the past 12 months: No Aproximately how many cigarettes per day: 0 - Alcohol/Substance Use Hx Alcohol Use: No History of Substance Use: reports: None - Social History ADL: Independent History of Recent Travel: No Home Medications - Allergies Allergies/Adverse Reactions: Allergies Allergy/AdvReac Type Severity Reaction Status Date / Time No Known Drug Allergies Allergy Verified 04/09/17 16:57 - Home Medications Home Medications: Ambulatory Orders Aspirin 81 mg PO DAILY #0 tab.chew 01/07/13 Esomeprazole Mag Trihydrate [Nexium] 40 mg PO DAILY 10/10/14 Amlodipine Besylate [Norvasc -] 10 mg PO DAILY tablet 06/14/16 Atorvastatin Ca [Lipitor] 10 mg PO HS #30 tablet 06/14/16 Insulin Glargine,Hum.rec.anlog [Lantus (10mL VIAL) -] 30 units SQ HS 07/05/16 Albuterol 0.083% Nebulizer Faviola [Ventolin 0.083% Nebulizer Soln -] 1 amp NEB Q4H PRN #0 amp 08/10/16 Benzonatate 200 mg PO DAILY 04/09/17 Calcium Acetate 667 mg PO DAILY 04/09/17 Folic Acid/Vit B Complex and C [Piedad-Kelly Tablet] 0.8 mg PO DAILY 04/09/17 Furosemide [Lasix] 80 mg PO DAILY 04/09/17 Insulin Glargine,Hum.rec.anlog [Lantus (10mL VIAL) -] 30 units SQ AM 04/09/17 Labetalol HCl [Normodyne -] 200 mg PO BID 04/09/17 Metoprolol Succinate [Toprol XL -] 25 mg PO DAILY 04/09/17 Montelukast Na [Singulair -] 10 mg PO DAILY 04/09/17 Sevelamer Carbonate [Renvela -] 800 mg PO TID 04/09/17 Acetaminophen [Tylenol .Regular Strength -] 650 mg PO Q4H PRN #0 tablet Aspirin [ASA -] 81 mg PO DAILY tab.chew 04/21/17 Cefazolin Sodium in 0.9 % NaCl [Cefazolin-0.9% NaCl 2 G/10 ml] 2 gm IV TID #18 syringe 04/21/17 Insulin Sliding Scale [Novolog Vial Sliding Scale -] 1 vial SQ TIDAC units Lidocaine Patch Removal [Lidoderm Patch Removal] 1 each MC DAILY@2200 each Losartan Potassium [Cozaar -] 50 mg PO DAILY tablet 04/21/17 Metoclopramide HCl [Reglan -] 5 mg PO TIDAC tablet 04/21/17 Mupirocin Ointment [Bactroban 2% Ointment -] 1 applic TP BID applic 04/21/17 Oxycodone HCl 10 mg PO Q8H #20 tablet MDD 3 04/21/17 Rivaroxaban [Xarelto -] 15 mg PO DAILY tablet 04/21/17 Zolpidem Tartrate [Ambien] 5 mg PO HS PRN #30 tablet MDD 1 04/21/17 Family Disease History - Family Disease History Family History: Unable to Obtain Review of Systems - Review of Systems Constitutional: reports: No Symptoms Eyes: reports: No Symptoms HENT: reports: No Symptoms Neck: reports: No Symptoms Cardiovascular: reports: No Symptoms Respiratory: reports: No Symptoms Gastrointestinal: reports: Vomiting Blood Breasts: reports: No Symptoms Reported Musculoskeletal: reports: No Symptoms Integumentary: reports: No Symptoms Neurological: reports: No Symptoms Endocrine: reports: No Symptoms Hematology/Lymphatic: reports: No Symptoms Psychiatric: reports: No Symptoms Physical Examination Vital Signs: Vital Signs Temperature 97.7 F 10/20/17 16:20 Pulse Rate 82 10/20/17 17:36 Respiratory Rate 16 10/20/17 17:36 Blood Pressure 93/49 10/20/17 17:36 O2 Sat by Pulse Oximetry (%) 100 10/20/17 17:36 Constitutional: Yes: Well Nourished, No Distress, Calm Eyes: Yes: WNL, Conjunctiva Clear, EOM Intact, PERRL HENT: Yes: WNL, Atraumatic, Normocephalic Neck: Yes: WNL, Supple, Trachea Midline Cardiovascular: Yes: WNL, Regular Rate and Rhythm, S1, S2 Respiratory: Yes: WNL, Regular, CTA Bilaterally Gastrointestinal: Yes: Normal Bowel Sounds, Soft, Abdomen, Obese, Distention ...Rectal Exam: Yes: Deferred Renal/: Yes: Other (makes some urine) Breast(s): Yes: WNL Musculoskeletal: Yes: WNL Extremities: Yes: Other (RUE Fistula +thrill/Bruit) Edema: Yes Edema: LLE: 2+, RLE: 2+ Peripheral Pulses WNL: Yes Integumentary: Yes: WNL Neurological: Yes: WNL, Alert, Oriented ...Motor Strength: WNL Psychiatric: Yes: WNL, Alert, Oriented Labs: CBC, BMP 10/20/17 17:29 10/20/17 17:29 Laboratory Results - last 24 hr 10/20/17 10/20/17 10/20/17 17:27 17:27 17:29 WBC 9.4 D RBC 2.37 L D Hgb 6.6 L* D Hct 21.0 L D MCV 88.9 MCH 28.0 MCHC 31.5 L RDW 20.1 H D Plt Count 250 D MPV 8.6 Neutrophils % 74.7 Lymphocytes % 14.8 Monocytes % 8.3 Eosinophils % 1.1 Basophils % 1.1 Hypochromia 1+ Platelet Estimate Adequate Platelet Comment Polychromasia 1+ Anisocytosis 1+ Macrocytosis 1+ PT with INR INR PTT (Actin FS) Anticoagulation Therapy Puncture Site ABG pH ABG pCO2 at Pt Temp ABG pO2 at Pt Temp ABG HCO3 ABG O2 Sat (Measured) ABG O2 Content ABG Base Excess Ignacio Test VBG pH 7.32 POC VBG pCO2 53.5 H POC VBG pO2 21.6 L Mixed VBG HCO3 26.8 H Carboxyhemoglobin Methemoglobin O2 Delivery Device Oxygen Flow Rate Vent Mode Vent Rate Mechanical Rate Pressure Support Vent Sodium Potassium Chloride Carbon Dioxide Anion Gap BUN Creatinine Creat Clearance w eGFR Random Glucose Lactic Acid Calcium Total Bilirubin AST ALT Alkaline Phosphatase Creatine Kinase CK-MB (CK-2) Troponin I B-Natriuretic Peptide 09867.20 H Total Protein Albumin Stool Occult Blood Blood Type Antibody Screen Crossmatch 10/20/17 10/20/17 10/20/17 17:29 17:29 17:29 WBC RBC Hgb Hct MCV MCH MCHC RDW Plt Count MPV Neutrophils % Lymphocytes % Monocytes % Eosinophils % Basophils % Hypochromia Platelet Estimate Platelet Comment Polychromasia Anisocytosis Macrocytosis PT with INR Cancelled INR Cancelled PTT (Actin FS) Cancelled Anticoagulation Therapy Puncture Site ABG pH ABG pCO2 at Pt Temp ABG pO2 at Pt Temp ABG HCO3 ABG O2 Sat (Measured) ABG O2 Content ABG Base Excess Ignacio Test VBG pH POC VBG pCO2 POC VBG pO2 Mixed VBG HCO3 Carboxyhemoglobin Methemoglobin O2 Delivery Device Oxygen Flow Rate Vent Mode Vent Rate Mechanical Rate Pressure Support Vent Sodium 135 L Potassium 7.0 H* D Chloride 100 Carbon Dioxide 24 Anion Gap 11 BUN 60 H D Creatinine 7.6 H* Creat Clearance w eGFR 7.39 Random Glucose 231 H Lactic Acid 3.3 H* Calcium 7.7 L Total Bilirubin 0.3 D AST 37 ALT 47 D Alkaline Phosphatase 352 H Creatine Kinase 55 CK-MB (CK-2) 3.988 H Troponin I B-Natriuretic Peptide Total Protein 7.0 Albumin 2.8 L Stool Occult Blood Blood Type Antibody Screen Crossmatch 10/20/17 10/20/17 10/20/17 17:29 17:29 18:29 WBC RBC Hgb Hct MCV MCH MCHC RDW Plt Count MPV Neutrophils % Lymphocytes % Monocytes % Eosinophils % Basophils % Hypochromia Platelet Estimate Platelet Comment Polychromasia Anisocytosis Macrocytosis PT with INR INR PTT (Actin FS) Anticoagulation Therapy No Result Required. Puncture Site No Result Required. ABG pH 7.37 ABG pCO2 at Pt Temp 48.9 H ABG pO2 at Pt Temp 117.0 H ABG HCO3 27.6 H ABG O2 Sat (Measured) 98.8 ABG O2 Content 8.3 L* ABG Base Excess 2.7 H Ignacio Test Positive VBG pH POC VBG pCO2 POC VBG pO2 Mixed VBG HCO3 Carboxyhemoglobin 2.6 H Methemoglobin 1.6 H O2 Delivery Device No Result Required. Oxygen Flow Rate No Result Required. Vent Mode No Result Required. Vent Rate No Result Required. Mechanical Rate No Result Required. Pressure Support Vent No Result Required. Sodium Potassium Chloride Carbon Dioxide Anion Gap BUN Creatinine Creat Clearance w eGFR Random Glucose Lactic Acid Calcium Total Bilirubin AST ALT Alkaline Phosphatase Creatine Kinase CK-MB (CK-2) Troponin I 0.02 B-Natriuretic Peptide Total Protein Albumin Stool Occult Blood Blood Type A POSITIVE Antibody Screen Negative Crossmatch See Detail 10/20/17 18:29 WBC RBC Hgb Hct MCV MCH MCHC RDW Plt Count MPV Neutrophils % Lymphocytes % Monocytes % Eosinophils % Basophils % Hypochromia Platelet Estimate Platelet Comment Polychromasia Anisocytosis Macrocytosis PT with INR INR PTT (Actin FS) Anticoagulation Therapy Puncture Site ABG pH ABG pCO2 at Pt Temp ABG pO2 at Pt Temp ABG HCO3 ABG O2 Sat (Measured) ABG O2 Content ABG Base Excess Ignacio Test VBG pH POC VBG pCO2 POC VBG pO2 Mixed VBG HCO3 Carboxyhemoglobin Methemoglobin O2 Delivery Device Oxygen Flow Rate Vent Mode Vent Rate Mechanical Rate Pressure Support Vent Sodium Potassium Chloride Carbon Dioxide Anion Gap BUN Creatinine Creat Clearance w eGFR Random Glucose Lactic Acid Calcium Total Bilirubin AST ALT Alkaline Phosphatase Creatine Kinase CK-MB (CK-2) Troponin I B-Natriuretic Peptide Total Protein Albumin Stool Occult Blood Negative Blood Type Antibody Screen Crossmatch Intake & Output 10/18/17 10/19/17 10/20/17 10/21/17 23:59 23:59 23:59 23:59 Weight 94.12 kg Imaging - Results Chest X-ray: Report Reviewed, Image Reviewed EKG: Image Reviewed Problem List - Problems (1) Upper GI bleed Assessment/Plan: -Admit to ICU - Cardiac monitoring - Likely secondary to ulcer vs varices - GI following- pending EGD in am - Protonix Drip started in ED will continue - NPO - PRBCs pending Nephrology input - Monitor CBC Code(s): K92.2 - GASTROINTESTINAL HEMORRHAGE, UNSPECIFIED (2) Anemia associated with chronic renal failure Assessment/Plan: - Hgb 6.6 not at baseline - PRBCs pending Code(s): D63.1 - ANEMIA IN CHRONIC KIDNEY DISEASE (3) Diabetes Assessment/Plan: - uncontrolled - BGMs - ISS Code(s): E11.9 - TYPE 2 DIABETES MELLITUS WITHOUT COMPLICATIONS Qualifiers: Diabetes mellitus type: type 2 Diabetes mellitus complication status: with unspecified complications (4) Hyperkalemia Assessment/Plan: - Likely secondary to fluid overload - Hyperkalemia Protocol given in ED - Repeat BMP post dialysis Code(s): E87.5 - HYPERKALEMIA (5) ESRD (end stage renal disease) on dialysis Assessment/Plan: - HD (,, ) - Appreciate Nephrology Consult for HD management- notified by ED staff Code(s): N18.6 - END STAGE RENAL DISEASE; Z99.2 - DEPENDENCE ON RENAL DIALYSIS (6) HTN (hypertension) Assessment/Plan: - stable - Hold all meds secondary to hypotension Code(s): I10 - ESSENTIAL (PRIMARY) HYPERTENSION Qualifiers: Hypertension type: essential hypertension Qualified Code(s): I10 - Essential (primary) hypertension (7) Sleep apnea Assessment/Plan: - stable - CPAP HS Code(s): G47.30 - SLEEP APNEA, UNSPECIFIED (8) DVT prophylaxis Assessment/Plan: - OOB - SCDs - AC held secondary to UGIB Code(s): HDI5226 - Assessment/Plan This is a 57 y/o man PMH ESRD HTN, HLD, DM, s/p CABG. Presents to the ED with Hematemesis. Admitted to ICU for Upper GI bleed, Hyperkalemia, Anemia Problems 1. Upper GI Bleed 2. Anemia 3. hyperkalemia 4. ESRD 5. Hypotension 6. Uncontrolled DM Plan FEN - Protonix Drip 8mg/ml - Replete lytes prn - NPO Code Status: Full Code Dispo: Requires Inpatient Care Visit type - Emergency Visit Emergency Visit: Yes ED Registration Date: 10/20/17 Care time: The patient presented to the Emergency Department on the above date and was hospitalized for further evaluation of their emergent condition. - New Patient This patient is new to me today: Yes Date on this admission: 10/20/17 - Critical Care Critical Care patient: Yes Total Critical Care Time (in minutes): 40 Critical Care Statement: The care of this patient involved high complexity decision making to prevent further life threatening deterioration of the patient 's condition and/or to evaluate & treat vital organ system(s) failure or risk of failure. Hospitalist Screening - Colonoscopy Questionnaire Colonoscopy Questionnaire: Colonoscopy Questionnaire - Patient: 50 - 75 years old and never had a screening colonoscopy: Unknown History of colon or rectal polyps, or CA: Unknown History of IBD, Crohn's disease or UC: Unknown History of abdominal radiation therapy as a child: Unknown - Relative: 1 with colon or rectal CA, or polyps at age 60 or younger: Unknown Colon or rectal CA diagnosed at age 45 or younger: Unknown Multiple relatives with colon or rectal CA: Unknown - Outcome: Screening Result: Negative Screen
[2017-10-20] MEDS: PANTOPRAZOLE SODIUM 80 MG in SODIUM CHLORIDE 100 ML IVPB SCH (19:50)
--- NOTE | 2017-10-20 20:29 | CON.NEP ---
Consult Consult Specialty:: Nephrology Referred by:: Medicine Reason for Consultation:: End stage renal disease with hyperkalemia - History of Present Illness Chief Complaint: Vomiting of blood earlier today History of Present Illness: Mr Rodriguez is a 57 year old man with type 2 diabetes mellitus, hypertension and ESRD on maintenance hemodialysis thee times a week at [facility]. Patient was admitted recently at [facility] and required CABG done during the hospitalization. He presents to the emergency department today with hemetemesis and very low hemoglobin. He denies abdominal pain but reports discomfort at the surgical site. Laboratory data revealed significant hyperkalemia. He denies dietary indiscretion. - History Source History Provided By: Patient, Medical Record Limitations to Obtaining History: No Limitations - Past Medical History [employer]: Yes: Peripheral Neuropathy Cardio/Vascular: Yes: CAD, HTN, Hyperlipdemia. No: AFIB Renal/: Yes: Renal Failure, Hemodialysis Heme/Onc: Yes: Anemia Musculoskeletal: Yes: Other (peripheral vascular disease) Endocrine: Yes: Diabetes Mellitus - Past Surgical History Past Surgical History: Yes: AV Fistula/Graft - Alcohol/Substance Use Hx Alcohol Use: No History of Substance Use: reports: None - Smoking History Smoking history: Never smoked Have you smoked in the past 12 months: No Aproximately how many cigarettes per day: 0 - Social History Usual Living Arrangement: With Spouse ADL: Independent History of Recent Travel: No Home Medications - Allergies Allergies/Adverse Reactions: Allergies Allergy/AdvReac Type Severity Reaction Status Date / Time No Known Drug Allergies Allergy Verified 04/09/17 16:57 - Home Medications Home Medications: Ambulatory Orders Aspirin 81 mg PO DAILY #0 tab.chew 01/07/13 Esomeprazole Mag Trihydrate [Nexium] 40 mg PO DAILY 10/10/14 Amlodipine Besylate [Norvasc -] 10 mg PO DAILY tablet 06/14/16 Atorvastatin Ca [Lipitor] 10 mg PO HS #30 tablet 06/14/16 Insulin Glargine,Hum.rec.anlog [Lantus (10mL VIAL) -] 30 units SQ HS 07/05/16 Albuterol 0.083% Nebulizer Faviola [Ventolin 0.083% Nebulizer Soln -] 1 amp NEB Q4H PRN #0 amp 08/10/16 Benzonatate 200 mg PO DAILY 04/09/17 Calcium Acetate 667 mg PO DAILY 04/09/17 Folic Acid/Vit B Complex and C [Piedad-Kelly Tablet] 0.8 mg PO DAILY 04/09/17 Furosemide [Lasix] 80 mg PO DAILY 04/09/17 Insulin Glargine,Hum.rec.anlog [Lantus (10mL VIAL) -] 30 units SQ AM 04/09/17 Labetalol HCl [Normodyne -] 200 mg PO BID 04/09/17 Metoprolol Succinate [Toprol XL -] 25 mg PO DAILY 04/09/17 Montelukast Na [Singulair -] 10 mg PO DAILY 04/09/17 Sevelamer Carbonate [Renvela -] 800 mg PO TID 04/09/17 Acetaminophen [Tylenol .Regular Strength -] 650 mg PO Q4H PRN #0 tablet Aspirin [ASA -] 81 mg PO DAILY tab.chew 04/21/17 Cefazolin Sodium in 0.9 % NaCl [Cefazolin-0.9% NaCl 2 G/10 ml] 2 gm IV TID #18 syringe 04/21/17 Insulin Sliding Scale [Novolog Vial Sliding Scale -] 1 vial SQ TIDAC units Lidocaine Patch Removal [Lidoderm Patch Removal] 1 each MC DAILY@2200 each Losartan Potassium [Cozaar -] 50 mg PO DAILY tablet 04/21/17 Metoclopramide HCl [Reglan -] 5 mg PO TIDAC tablet 04/21/17 Mupirocin Ointment [Bactroban 2% Ointment -] 1 applic TP BID applic 04/21/17 Oxycodone HCl 10 mg PO Q8H #20 tablet MDD 3 04/21/17 Rivaroxaban [Xarelto -] 15 mg PO DAILY tablet 04/21/17 Zolpidem Tartrate [Ambien] 5 mg PO HS PRN #30 tablet MDD 1 04/21/17 Review of Systems - Review of Systems Constitutional: reports: Malaise Gastrointestinal: reports: Vomiting Blood Endocrine: reports: No Symptoms Psychiatric: reports: No Symptoms Nephrology Consult - Height Height: 5 ft 7 in - Weight Weight: 205 lb 0.478 oz - BMI Body Mass Index (BMI): 32.1 - Lab Results CBC,BMP: CBC, BMP 10/20/17 17:29 04/23/18 17:29 Anion Gap: Anion Gap Anion Gap 11 (8-16) 10/20/17 17:29 - Physical Examination Vital Signs: Vital Signs Temperature 97.7 F 10/20/17 16:20 Pulse Rate 78 10/20/17 19:29 Respiratory Rate 16 10/20/17 19:29 Blood Pressure 116/67 10/20/17 19:29 O2 Sat by Pulse Oximetry (%) 100 10/20/17 19:29 Constitutional: Yes: Well Nourished, No Distress Eyes: Yes: Other (conjunctiva pallor) HENT: Yes: WNL Neck: Yes: WNL Cardiovascular: Yes: Regular Rate and Rhythm Respiratory: Yes: WNL Gastrointestinal: Yes: Normal Bowel Sounds, Soft, Abdomen, Obese Access for Hemodialysis: AV Fistula, AV Graft Musculoskeletal: Yes: Muscle Weakness Edema: No Neurological: Yes: Alert, Oriented Problem List - Problems (1) ESRD (end stage renal disease) Assessment/Plan: Patient is on maintenance hemodialysis three times a week on . He will be scheduled for repeat hemodialysis in a.m Code(s): N18.6 - END STAGE RENAL DISEASE (2) Hyperkalemia Assessment/Plan: Urgent hemodiclaysis x 2.5 hours tonight using 1.0k Bath fr the first hour. Check post hemodialysis potassium today. Repeat hemodialysis in a.m. Code(s): E87.5 - HYPERKALEMIA (3) Upper GI bleed Assessment/Plan: Patient would probably need transfusion of packed cell during dialysis today. The antecedent risk of transfusion while awaiting kideny transplant was explained to the patient. Code(s): K92.2 - GASTROINTESTINAL HEMORRHAGE, UNSPECIFIED
--- NOTE | 2017-10-20 20:33 | PDOC ---
*Physical Exam - Vital Signs Last Vital Signs Temp Pulse Resp BP Pulse Ox 97.7 F 78 16 116/67 100 10/20/17 16:20 10/20/17 19:29 10/20/17 19:29 10/20/17 19:29 10/20/17 19:29 - Physical Exam General Appearance: Yes: Nourished, Obese Neck: positive: Trachea midline, Supple Respiratory/Chest: positive: Lungs Clear, Normal Breath Sounds Cardiovascular: positive: S1, S2. negative: JVD, Murmur Vascular Pulses: Dorsalis-Pedis (R): 2+, Doralis-Pedis (L): 2+ Gastrointestinal/Abdominal: positive: Normal Bowel Sounds, Soft, Protuberent Musculoskeletal: negative: CVA Tenderness (R), CVA Tenderness (L) Extremity: positive: Normal Capillary Refill, Normal Inspection Integumentary: positive: Normal Color, Dry, Warm Neurologic: positive: Fully Oriented, Alert ED Treatment Course - LABORATORY CBC & Chemistry Diagram: 10/20/17 17:29 10/20/17 17:29 - ADDITIONAL ORDERS Additional order review: Laboratory Results 10/20/17 10/20/17 10/20/17 18:29 17:29 17:29 PT with INR INR PTT (Actin FS) Anticoagulation Therapy No Result Required. Puncture Site No Result Required. ABG pH 7.37 ABG pCO2 at Pt Temp 48.9 H ABG pO2 at Pt Temp 117.0 H ABG HCO3 27.6 H ABG O2 Sat (Measured) 98.8 ABG O2 Content 8.3 L* ABG Base Excess 2.7 H Ignacio Test Positive VBG pH POC VBG pCO2 POC VBG pO2 Mixed VBG HCO3 Carboxyhemoglobin 2.6 H Methemoglobin 1.6 H O2 Delivery Device No Result Required. Oxygen Flow Rate No Result Required. Vent Mode No Result Required. Vent Rate No Result Required. Mechanical Rate No Result Required. Pressure Support Vent No Result Required. Sodium Potassium Chloride Carbon Dioxide Anion Gap BUN Creatinine Creat Clearance w eGFR Random Glucose Lactic Acid Calcium Total Bilirubin AST ALT Alkaline Phosphatase Creatine Kinase CK-MB (CK-2) Troponin I 0.02 B-Natriuretic Peptide Total Protein Albumin Blood Type A POSITIVE Antibody Screen Negative Crossmatch See Detail 10/20/17 10/20/17 10/20/17 17:29 17:29 17:29 PT with INR Cancelled INR Cancelled PTT (Actin FS) Cancelled Anticoagulation Therapy Puncture Site ABG pH ABG pCO2 at Pt Temp ABG pO2 at Pt Temp ABG HCO3 ABG O2 Sat (Measured) ABG O2 Content ABG Base Excess Ignacio Test VBG pH POC VBG pCO2 POC VBG pO2 Mixed VBG HCO3 Carboxyhemoglobin Methemoglobin O2 Delivery Device Oxygen Flow Rate Vent Mode Vent Rate Mechanical Rate Pressure Support Vent Sodium 135 L Potassium 7.0 H* D Chloride 100 Carbon Dioxide 24 Anion Gap 11 BUN 60 H D Creatinine 7.6 H* Creat Clearance w eGFR 7.39 Random Glucose 231 H Lactic Acid 3.3 H* Calcium 7.7 L Total Bilirubin 0.3 D AST 37 ALT 47 D Alkaline Phosphatase 352 H Creatine Kinase 55 CK-MB (CK-2) 3.988 H Troponin I B-Natriuretic Peptide Total Protein 7.0 Albumin 2.8 L Blood Type Antibody Screen Crossmatch 10/20/17 10/20/17 17:27 17:27 PT with INR INR PTT (Actin FS) Anticoagulation Therapy Puncture Site ABG pH ABG pCO2 at Pt Temp ABG pO2 at Pt Temp ABG HCO3 ABG O2 Sat (Measured) ABG O2 Content ABG Base Excess Ignacio Test VBG pH 7.32 POC VBG pCO2 53.5 H POC VBG pO2 21.6 L Mixed VBG HCO3 26.8 H Carboxyhemoglobin Methemoglobin O2 Delivery Device Oxygen Flow Rate Vent Mode Vent Rate Mechanical Rate Pressure Support Vent Sodium Potassium Chloride Carbon Dioxide Anion Gap BUN Creatinine Creat Clearance w eGFR Random Glucose Lactic Acid Calcium Total Bilirubin AST ALT Alkaline Phosphatase Creatine Kinase CK-MB (CK-2) Troponin I B-Natriuretic Peptide 23209.20 H Total Protein Albumin Blood Type Antibody Screen Crossmatch 10/20/17 17:29 RBC 2.37 L D MCV 88.9 MCHC 31.5 L RDW 20.1 H D MPV 8.6 Neutrophils % 74.7 Lymphocytes % 14.8 Monocytes % 8.3 Eosinophils % 1.1 Basophils % 1.1 - Medications Given in the ED: ED Medications Discontinued Medications Generic Name Dose Route Start Last Admin Trade Name Freq PRN Reason Stop Dose Admin Dextrose 25 gm 10/20/17 18:59 10/20/17 19:50 D50w (Vial) - IVPUSH 10/20/17 19:00 25 gm NOW ONE Administration Pantoprazole Sodium 40 mg/ 100 mls @ 200 mls/hr 10/20/17 18:48 10/20/17 19:50 Sodium Chloride IVPB 10/20/17 19:17 200 mls/hr ONCE ONE Administration Insulin Human Regular 6 units 10/20/17 18:59 10/20/17 19:50 Novolin R Vial *For Ivpush Or Iv Drip Only* IVPUSH 10/20/17 19:00 6 units ONCE ONE Administration Sodium Bicarbonate 50 meq 10/20/17 19:10 10/20/17 19:50 Sodium Bicarbonate 8.4% - IVPUSH 10/20/17 19:11 50 meq ONCE ONE Administration Medical Decision Making - Medical Decision Making 10/20/17 20:32 Patient signed out by Dr. Damon (Resident) and Dr. Stratton (Attending) 57 year old male presents w/solo episode of hematemesis + 1 day h/o low BP (SBP 80's-90'). Hyperkalemic (K+ 7.0) w/o ECG changes and Hb 6.6. Case d/w nephrology, patient to dialysis tonight + transfusion. Patient admitted to ICU. Endoscopy planned for tomorrow (10/21). 10/20/17 20:47 Patient consented for transfusion. Will continue to monitor while in ED. *DC/Admit/Observation/Transfer Diagnosis at time of Disposition: Upper GI bleed, Anemia, Hyperkalemia, ESRD (end stage renal disease) - Discharge Dispostion Condition at time of disposition: Guarded - Referrals - Patient Instructions - Post Discharge Activity
[2017-10-20 21:07] LABS: ANISOCYTOSIS 1+; MACROCYTOSIS 1+; PLATELET ESTIMATE ADEQUATE
[2017-10-20 22:18] VITALS: BMI 32.5
[2017-10-20] MEDS: morphine SULFATE 4 MG/ML VIAL IVPUSH PRN (22:41)
[2017-10-20] MEDS: MUPIROCIN 2% TOPICAL OINTMENT FOR DECOLONIZATION NS SCH (22:49)
--- NOTE | 2017-10-20 22:49 | CONSULT ---
Consult - text type - Consultation Consultation Note: PULM/ccm Pt seen and examined in ICU CC: coffee ground emesis, abd pain, weakness HPI: Briefly Mr Rodriguez is a 57 y/o man with PMH ESRD (HD-,,), CAD s/p recent CABG, HTN, HLD who presented today to ED w/ low bp and one episode of hematemesis while at his PCP's office. He denies hx of GIB. On arrival to the ED H/H 6.6/21.0, K 7.0, without acute EKG changes. Patient denies fever, chills , CP, palpitations, AP, diarrhea, constipation, melena. Pt was started on protonix gtt, Nephrology was consulted. 2 PRBC were ordered, and plans for urgent HD tonight made. Transferred to ICU for initiation of O/n dialysis, and likely EGD in am. 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 Peripheral Neuropathy Cardio/Vascular CAD,HTN,Hyperlipdemia Renal/ Renal Failure,Hemodialysis Heme/Onc Anemia Endocrine Diabetes Mellitus Current Medications Chlorhexidine Gluconate (Hibiclens For Decolonization -) 1 applic TP HS VALERIA Pantoprazole Sodium 80 mg/ (Sodium Chloride) 100 mls @ 10 mls/hr IVPB Q10H VALERIA PRN Reason: 8 MG/HR Last Admin: 10/20/17 19:50 Dose: 10 mls/hr Morphine Sulfate (Morphine Sulfate) 2 mg IVPUSH Q3H PRN PRN Reason: PAIN LEVEL 1-5 Mupirocin (Bactroban Ointment (For Decolonization) -) 1 applic NS BID VALERIA Stop: 10/25/17 21:59 Past Surgical History Past Surgical History AV Fistula/Graft Smoking History Smoking history Never smoked Aproximately how many 0 cigarettes per day Alcohol/Substance Use Hx Alcohol Use No History of Substance Use None Social History Usual Living Arrangement With Spouse ADL Independent History of Recent Travel No Home Medications Medication Instructions Recorded Aspirin 81 mg PO DAILY #0 tab.chew 01/07/13 Esomeprazole Mag Trihydrate 40 mg PO DAILY 10/10/14 [Nexium] Amlodipine Besylate [Norvasc -] 10 mg PO DAILY tablet 06/14/16 Atorvastatin Ca [Lipitor] 10 mg PO HS #30 tablet 06/14/16 Insulin Glargine,Hum.rec.anlog 30 units SQ HS 07/05/16 [Lantus (10mL VIAL) -] Albuterol 0.083% Nebulizer Faviola 1 amp NEB Q4H PRN #0 amp 08/10/16 [Ventolin 0.083% Nebulizer Soln -] Benzonatate 200 mg PO DAILY 04/09/17 Calcium Acetate 667 mg PO DAILY 04/09/17 Folic Acid/Vit B Complex and C 0.8 mg PO DAILY 04/09/17 [Piedad-Kelly Tablet] Furosemide [Lasix] 80 mg PO DAILY 04/09/17 Insulin Glargine,Hum.rec.anlog 30 units SQ AM 04/09/17 [Lantus (10mL VIAL) -] Labetalol HCl [Normodyne -] 200 mg PO BID 04/09/17 Metoprolol Succinate [Toprol XL -] 25 mg PO DAILY 04/09/17 Montelukast Na [Singulair -] 10 mg PO DAILY 04/09/17 Sevelamer Carbonate [Renvela -] 800 mg PO TID 04/09/17 Acetaminophen [Tylenol .Regular 650 mg PO Q4H PRN #0 tablet 04/21/17 Strength -] Aspirin [ASA -] 81 mg PO DAILY tab.chew 04/21/17 Cefazolin Sodium in 0.9 % NaCl 2 gm IV TID #18 syringe 04/21/17 [Cefazolin-0.9% NaCl 2 G/10 ml] Insulin Sliding Scale [Novolog 1 vial SQ TIDAC units 04/21/17 Vial Sliding Scale -] Lidocaine Patch Removal [Lidoderm 1 each MC DAILY@2200 each 04/21/17 Patch Removal] Losartan Potassium [Cozaar -] 50 mg PO DAILY tablet 04/21/17 Metoclopramide HCl [Reglan -] 5 mg PO TIDAC tablet 04/21/17 Mupirocin Ointment [Bactroban 2% 1 applic TP BID applic 04/21/17 Ointment -] Oxycodone HCl 10 mg PO Q8H #20 tablet MDD 3 04/21/17 Rivaroxaban [Xarelto -] 15 mg PO DAILY tablet 04/21/17 Zolpidem Tartrate [Ambien] 5 mg PO HS PRN #30 tablet MDD 1 04/21/17 Active Medications Chlorhexidine Gluconate (Hibiclens For Decolonization -) 1 applic TP HS VALERIA Pantoprazole Sodium 80 mg/ (Sodium Chloride) 100 mls @ 10 mls/hr IVPB Q10H VALERIA PRN Reason: 8 MG/HR Last Admin: 10/20/17 19:50 Dose: 10 mls/hr Morphine Sulfate (Morphine Sulfate) 2 mg IVPUSH Q3H PRN PRN Reason: PAIN LEVEL 1-5 Mupirocin (Bactroban Ointment (For Decolonization) -) 1 applic NS BID VALERIA Stop: 10/25/17 21:59 CBCD WBC 9.4 K/mm3 (4.0-10.0) D 10/20/17 17:29 RBC 2.37 M/mm3 (4.00-5.60) L D 10/20/17 17:29 Hgb 6.6 GM/dL (11.7-16.9) L* D 10/20/17 17:29 Hct 21.0 % (35.4-49) L D 10/20/17 17:29 MCV 88.9 fl (80-96) 10/20/17 17:29 MCHC 31.5 g/dl (32.0-35.9) L 10/20/17 17:29 RDW 20.1 % (11.9-15.9) H D 10/20/17 17:29 Plt Count 250 K/MM3 (134-434) D 10/20/17 17:29 MPV 8.6 fl (7.5-11.1) 10/20/17 17:29 CMP Sodium 135 mmol/L (136-145) L 10/20/17 17:29 Potassium 7.0 mmol/L (3.5-5.1) H* D 10/20/17 17:29 Chloride 100 mmol/L (98-107) 10/20/17 17:29 Carbon Dioxide 24 mmol/L (21-32) 10/20/17 17:29 Anion Gap 11 (8-16) 10/20/17 17:29 BUN 60 mg/dL (7-18) H D 10/20/17 17:29 Creatinine 7.6 mg/dL (0.7-1.3) H* 10/20/17 17:29 Creat Clearance w eGFR 7.39 (>60) 10/20/17 17:29 Random Glucose 231 mg/dL (74-106) H 10/20/17 17:29 Calcium 7.7 mg/dL (8.5-10.1) L 10/20/17 17:29 Total Bilirubin 0.3 mg/dL (0.2-1.0) D 10/20/17 17:29 AST 37 U/L (15-37) 10/20/17 17:29 ALT 47 U/L (12-78) D 10/20/17 17:29 Alkaline Phosphatase 352 U/L (45-117) H 10/20/17 17:29 Total Protein 7.0 g/dl (6.4-8.2) 10/20/17 17:29 Albumin 2.8 g/dl (3.4-5.0) L 10/20/17 17:29 CARDIAC ENZYMES Creatine Kinase 55 IU/L (39-308) 10/20/17 17:29 Troponin I 0.02 ng/ml (0.00-0.05) 10/20/17 17:29 ROS: 10 pt review negative except as per HPI EKG: Sinus, R axis, QRS 96, qTC 460. incomplete Rbundle PE: Vital Signs Temperature 97.7 F 10/20/17 16:20 Pulse Rate 80 10/20/17 20:42 Respiratory Rate 18 10/20/17 21:51 Blood Pressure 134/67 10/20/17 20:42 O2 Sat by Pulse Oximetry (%) 100 10/20/17 21:51 GEN: non toxic, awake, alert HEENT: PERRL no jvd pulm; Clear bilat Abd: soft, lightly distended, no guarding Ext: 2+ dependent edema Neuro: no focal, grossly intact A/ 57 y/o man with ESRD on HD now with hyperkalemia, possible UGIB/symptomatic anemia P/ -HD tonight, transfuse 2 PRBC with HD -protonix gtt -serial CBC -hold antihypertensive -hold anticoagulation -NPO for possible EGD in am -scd AND PPI for erum Quintero ANCP [id number]
[2017-10-20] MEDS: CHLORHEXIDINE GLUCONATE 4% CLEANSER FOR DECOLONIZATION TP SCH (22:50)
[2017-10-21 03:51] LABS: CREATININE 3.4 mg/dL (0.7-1.3); POTASSIUM 3.9 mmol/L (3.5-5.1)
[2017-10-21] MEDS: PANTOPRAZOLE SODIUM 80 MG in SODIUM CHLORIDE 100 ML IVPB SCH ×2 (06:21→16:56)
[2017-10-21] MEDS: morphine SULFATE 4 MG/ML VIAL IVPUSH PRN ×3 (08:35→22:01)
--- NOTE | 2017-10-21 08:41 | PN ---
Progress Note, Physician History of Present Illness: pt seen/ examined in icu chart reviewed. got transfused 2 units and dialized last night c/c=- whole chest hurts- tachy on monitor. currently npo no further bleeding overnight. - Current Medication List Current Medications: Active Medications Chlorhexidine Gluconate (Hibiclens For Decolonization -) 1 applic TP HS VALERIA Last Admin: 10/20/17 22:50 Dose: 1 applic Pantoprazole Sodium 80 mg/ (Sodium Chloride) 100 mls @ 10 mls/hr IVPB Q10H VALERIA PRN Reason: 8 MG/HR Last Admin: 10/21/17 06:21 Dose: 10 mls/hr Morphine Sulfate (Morphine Sulfate) 2 mg IVPUSH Q3H PRN PRN Reason: PAIN LEVEL 1-5 Last Admin: 10/20/17 22:41 Dose: 2 mg Mupirocin (Bactroban Ointment (For Decolonization) -) 1 applic NS BID VALERIA Stop: 10/25/17 21:59 Last Admin: 10/20/17 22:49 Dose: 1 applic - Objective Vital Signs: Vital Signs Temperature 97.8 F 10/21/17 02:00 Pulse Rate 79 10/21/17 06:00 Respiratory Rate 18 10/21/17 06:00 Blood Pressure 127/68 10/21/17 06:00 O2 Sat by Pulse Oximetry (%) 100 10/21/17 05:00 Constitutional: Yes: Mild Distress Eyes: Yes: Conjunctiva Clear Neck: Yes: Supple Cardiovascular: Yes: Tachycardia Respiratory: Yes: Diminished Gastrointestinal: Yes: Soft Edema: Yes Edema: LLE: 1+, RLE: 1+ Neurological: Yes: Alert Psychiatric: Yes: Alert Labs: CBC, BMP 10/20/17 17:29 10/21/17 02:25 INR, PTT INR Cancelled 10/20/17 17:29 - ....Imaging Chest X-ray: Report Reviewed EKG: Pending Problem List - Problems (1) Chest pain due to coronary artery disease Code(s): R07.9 - CHEST PAIN, UNSPECIFIED; I25.10 - ATHSCL HEART DISEASE OF [place] CORONARY ARTERY W/O ANG PCTRS (2) Tachycardia Code(s): R00.0 - TACHYCARDIA, UNSPECIFIED (3) Hyperkalemia Code(s): E87.5 - HYPERKALEMIA (4) Upper GI bleed Code(s): K92.2 - GASTROINTESTINAL HEMORRHAGE, UNSPECIFIED Assessment/Plan PT WITH EXTENSIVE CAD-- NOW WITH CP WILL DO STAT EKG/ TROPONINS MORPHINE FOR PAIN CARDIOLOGY CONSULT PT NPO FOR EGD BUT HOLD FOR NOW TILL CLEARED BY CARDIOLOGY F/U CBC ALSO ORDERED DISCUSSED WITH NURSING STAFF. WILL FOLLOW CC TIME 35 MIN.
[2017-10-21 09:14] LABS: HEMATOCRIT 23.2 % (35.4-49); HEMOGLOBIN 7.9 GM/dL (11.7-16.9); MCH 29.2 pg (25.7-33.7); MCHC 34.2 g/dl (32.0-35.9); MEAN CELL VOLUME 85.6 fl (80-96); MEAN PLT VOLUME 7.7 fl (7.5-11.1); PLATELET COUNT 216 K/MM3 (134-434); RBC 2.71 M/mm3 (4.00-5.60); RDW 17.6 % (11.9-15.9); WHITE BLOOD COUNT 8.6 K/mm3 (4.0-10.0)
[2017-10-21] MEDS ORDERED: PT OWN MED DRAWER 7, Y5N ONE (09:25)
[2017-10-21] MEDS ORDERED: METOPROLOL TARTRATE 5 MG/5 ML VIAL IVPUSH ONE (09:31)
[2017-10-21 09:32] LABS: INR 1.27 (0.82-1.09); PROTHROMBIN TIME (PATIENT) 14.3 SEC (9.7-13.0)
[2017-10-21 09:35] LABS: ACTIVATED PTT 30.3 SECONDS (26.9-34.4)
[2017-10-21] MEDS ORDERED: SODIUM CHLORIDE 500 ML IV STA (09:35)
--- NOTE | 2017-10-21 10:13 | EKG ---
Test Reason : Blood Pressure : / mmHG Vent. Rate : 130 BPM Atrial Rate : 130 BPM P-R Int : 000 ms QRS Dur : 090 ms QT Int : 314 ms P-R-T Axes : 000 -62 090 degrees QTc Int : 462 ms SINUS TACHYCARDIA LEFT AXIS DEVIATION INFERIOR INFARCT , AGE UNDETERMINED ABNORMAL ECG WHEN COMPARED WITH ECG OF 20-OCT-2017 16:31, VENT. RATE HAS INCREASED BY 47 BPM Confirmed by MD LISA, LUCA ([id number]) on 10/21/2017 10:12:43 AM Referred By: VIDYA Watkins DR Confirmed By:LUCA GONZALEZ MD
--- NOTE | 2017-10-21 10:18 | EKG ---
Test Reason : Blood Pressure : / mmHG Vent. Rate : 083 BPM Atrial Rate : 083 BPM P-R Int : 160 ms QRS Dur : 096 ms QT Int : 392 ms P-R-T Axes : 039 262 108 degrees QTc Int : 460 ms NORMAL SINUS RHYTHM RIGHT SUPERIOR AXIS DEVIATION INCOMPLETE RIGHT BUNDLE BRANCH BLOCK POSSIBLE RIGHT VENTRICULAR HYPERTROPHY PROLONGED QT ABNORMAL ECG WHEN COMPARED WITH ECG OF 21-FEB-2017 19:05, QRS VOLTAGE HAS DECREASED CRITERIA FOR SEPTAL INFARCT ARE NO LONGER PRESENT NONSPECIFIC T WAVE ABNORMALITY NOW EVIDENT IN INFERIOR LEADS T WAVE INVERSION MORE EVIDENT IN LATERAL LEADS Confirmed by MD LISA, LUCA ([id number]) on 10/21/2017 10:17:42 AM Referred By: Confirmed By:LUCA GONZALEZ MD
[2017-10-21 10:24] LABS: ALBUMIN 2.6 g/dl (3.4-5.0); ANION GAP 8 (8-16); BLOOD UREA NITROGEN 54 mg/dL (7-18); CALCIUM 7.5 mg/dL (8.5-10.1); CHLORIDE 100 mmol/L (98-107); CO2 31 mmol/L (21-32); CREATININE 5.2 mg/dL (0.7-1.3); GLUCOSE,RANDOM 147 mg/dL (74-106); MAGNESIUM 2.1 mg/dL (1.8-2.4); PHOSPHOROUS 3.3 mg/dL (2.5-4.9); POTASSIUM 4.9 mmol/L (3.5-5.1); SGOT/AST 19 U/L (15-37); SGPT/ALT 36 U/L (12-78); SODIUM 139 mmol/L (136-145)
[2017-10-21 10:28] LABS: ALK PHOS 284 U/L (45-117); BILIRUBIN,TOTAL 0.7 mg/dL (0.2-1.0); TOT PROT 6.5 g/dl (6.4-8.2)
[2017-10-21] MEDS: MUPIROCIN 2% TOPICAL OINTMENT FOR DECOLONIZATION NS SCH ×2 (10:42→22:03)
--- NOTE | 2017-10-21 11:48 | PN ---
Teaching Attending Note Name of Resident: Jose Ramon Huntley ATTENDING PHYSICIAN STATEMENT I saw and evaluated the patient. I reviewed the resident's note and discussed the case with the resident. I agree with the resident's findings and plan as documented. SUBJECTIVE: Pt seen and examined in the ICU. Tachycardic this AM, EKG showing sinus rhythm with ST depressions in lateral leads. Some anterior chest pain described as sharp. OBJECTIVE: Last Vital Signs Temp Pulse Resp BP Pulse Ox 97.8 F 120 H 12 99/40 100 10/21/17 02:00 10/21/17 10:00 10/21/17 10:00 10/21/17 10:00 10/21/17 09:00 Intake & Output 10/18/17 10/19/17 10/20/17 10/21/17 23:59 23:59 23:59 23:59 Intake Total 730 70 Balance 730 70 Weight 94.12 kg Gen: NAD at rest Heart: tachycardic, regular Lung: decreased breath sounds at the bases Abd: soft, nontender Ext: no edema CBC, BMP 10/21/17 08:50 10/21/17 08:50 Active Medications Chlorhexidine Gluconate (Hibiclens For Decolonization -) 1 applic TP HS VALERIA Last Admin: 10/20/17 22:50 Dose: 1 applic Pantoprazole Sodium 80 mg/ (Sodium Chloride) 100 mls @ 10 mls/hr IVPB Q10H VALERIA PRN Reason: 8 MG/HR Last Admin: 10/21/17 06:21 Dose: 10 mls/hr Morphine Sulfate (Morphine Sulfate) 2 mg IVPUSH Q3H PRN PRN Reason: PAIN LEVEL 1-5 Last Admin: 10/21/17 08:35 Dose: 2 mg Mupirocin (Bactroban Ointment (For Decolonization) -) 1 applic NS BID VALERIA Stop: 10/25/17 21:59 Last Admin: 10/21/17 10:42 Dose: 1 applic ASSESSMENT AND PLAN: GI Bleed Anemia ESRD on HD Hyperkalemia Lactic Acidosis CAD s/p recent CABG HTN Hyperlipidemia DM - monitor H/H - transfuse as needed - protonix - beta blockade - no ASA or heparin for suspected GI bleed - nitrates if BP tolerates - LE dopplers - CTA chest - O2 to keep SpO2 >90% - cardiology eval - echocardiogram - mechanical DVT prophylaxis - continue ICU monitoring critical care time spent in reviewing chart, evaluating patient and formulating plan 35 min
--- NOTE | 2017-10-21 12:24 | CON.CARD ---
Consult Consult Specialty:: Cardiology Referred by:: Dr. Villa Reason for Consultation:: Cardiac evaluation - History of Present Illness Chief Complaint: Chest pain History of Present Illness: Patient is a 57 year old male with history of ESRD on HD (Fri//Fri) coronary artery disease s/p recent CABG (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 He complains of mid sternal chest discomfort ( across chest) this am. He denies shortness of breath or palpitations. Monitor reveals sinus tachycardia at 120-130 bpm. He denies nausea or vomiting this am. He denies headache or dizziness. He denies fever or chills. Cardiology consultation was called for further evaluation for tachycardia. He is awaiting EGD. 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 Cardio/Vascular: Yes: CAD (CABG), HTN, Hyperlipdemia Renal/: Yes: Renal Failure, Hemodialysis Musculoskeletal: Yes: Other (peripheral vascular disease) Endocrine: Yes: Diabetes Mellitus - Past Surgical History Past Surgical History: Yes: Amputation, AV Fistula/Graft, CABG - Alcohol/Substance Use Hx Alcohol Use: No History of Substance Use: reports: None - Smoking History Smoking history: Never smoked Have you smoked in the past 12 months: No Aproximately how many cigarettes per day: 0 - Social History Usual Living Arrangement: With Spouse ADL: Independent History of Recent Travel: No Home Medications - Allergies Allergies/Adverse Reactions: Allergies Allergy/AdvReac Type Severity Reaction Status Date / Time No Known Drug Allergies Allergy Verified 04/09/17 16:57 - Home Medications Home Medications: Ambulatory Orders Aspirin 81 mg PO DAILY #0 tab.chew 01/07/13 Esomeprazole Mag Trihydrate [Nexium] 40 mg PO DAILY 10/10/14 Amlodipine Besylate [Norvasc -] 10 mg PO DAILY tablet 06/14/16 Atorvastatin Ca [Lipitor] 10 mg PO HS #30 tablet 06/14/16 Insulin Glargine,Hum.rec.anlog [Lantus (10mL VIAL) -] 30 units SQ HS 07/05/16 Albuterol 0.083% Nebulizer Faviola [Ventolin 0.083% Nebulizer Soln -] 1 amp NEB Q4H PRN #0 amp 08/10/16 Benzonatate 200 mg PO DAILY 04/09/17 Calcium Acetate 667 mg PO DAILY 04/09/17 Folic Acid/Vit B Complex and C [Piedad-Kelly Tablet] 0.8 mg PO DAILY 04/09/17 Furosemide [Lasix] 80 mg PO DAILY 04/09/17 Insulin Glargine,Hum.rec.anlog [Lantus (10mL VIAL) -] 30 units SQ AM 04/09/17 Labetalol HCl [Normodyne -] 200 mg PO BID 04/09/17 Metoprolol Succinate [Toprol XL -] 25 mg PO DAILY 04/09/17 Montelukast Na [Singulair -] 10 mg PO DAILY 04/09/17 Sevelamer Carbonate [Renvela -] 800 mg PO TID 04/09/17 Acetaminophen [Tylenol .Regular Strength -] 650 mg PO Q4H PRN #0 tablet Aspirin [ASA -] 81 mg PO DAILY tab.chew 04/21/17 Cefazolin Sodium in 0.9 % NaCl [Cefazolin-0.9% NaCl 2 G/10 ml] 2 gm IV TID #18 syringe 04/21/17 Insulin Sliding Scale [Novolog Vial Sliding Scale -] 1 vial SQ TIDAC units Lidocaine Patch Removal [Lidoderm Patch Removal] 1 each MC DAILY@2200 each Losartan Potassium [Cozaar -] 50 mg PO DAILY tablet 04/21/17 Metoclopramide HCl [Reglan -] 5 mg PO TIDAC tablet 04/21/17 Mupirocin Ointment [Bactroban 2% Ointment -] 1 applic TP BID applic 04/21/17 Oxycodone HCl 10 mg PO Q8H #20 tablet MDD 3 04/21/17 Rivaroxaban [Xarelto -] 15 mg PO DAILY tablet 04/21/17 Zolpidem Tartrate [Ambien] 5 mg PO HS PRN #30 tablet MDD 1 04/21/17 Family Disease History - Family Disease History Other Family History: History of hypertension, coronary artery disease Review of Systems - Review of Systems Constitutional: denies: Chills, Fever Cardiovascular: reports: Chest Pain. denies: Palpitations, Shortness of Breath Respiratory: denies: Cough, Hemoptysis, Orthopnea, PND, SOB, SOB on Exertion Gastrointestinal: reports: Vomiting, Vomiting Blood. denies: Abdominal Pain, Constipation, Diarrhea, Melena, Nausea, Rectal Bleeding Neurological: denies: Dizziness, Headache, Seizure, Syncope Vital Signs: Vital Signs Temperature 97.8 F 10/21/17 02:00 Pulse Rate 120 H 10/21/17 10:00 Respiratory Rate 12 10/21/17 10:00 Blood Pressure 99/40 10/21/17 10:00 O2 Sat by Pulse Oximetry (%) 100 10/21/17 09:00 Eyes: Yes: PERRL HENT: Yes: Atraumatic Neck: Yes: Supple Respiratory: Yes: CTA Bilaterally Gastrointestinal: Yes: Normal Bowel Sounds, Soft. No: Tenderness Cardiovascular: Yes: Regular Rate and Rhythm, Tachycardia JVD: No Carotid Bruit: No PMI: Non-Displaced Heart Sounds: Yes: S1, S2 Extremities: Yes: Amputation Edema: No - Other Data Labs, Other Data: CBC, BMP 10/21/17 08:50 10/21/17 08:50 INR, PTT INR 1.27 (0.82-1.09) H 10/21/17 08:50 Troponin, BNP 10/20/17 10/20/17 10/21/17 17:27 17:29 08:50 Troponin I 0.02 0.05 D B-Natriuretic Peptide 93789.20 H Laboratory Results - last 24 hr 10/20/17 10/20/17 10/20/17 17:27 17:27 17:29 WBC 9.4 D RBC 2.37 L D Hgb 6.6 L* D Hct 21.0 L D MCV 88.9 MCH 28.0 MCHC 31.5 L RDW 20.1 H D Plt Count 250 D MPV 8.6 Neutrophils % 74.7 Lymphocytes % 14.8 Monocytes % 8.3 Eosinophils % 1.1 Basophils % 1.1 Hypochromia 1+ Platelet Estimate Adequate Platelet Comment Polychromasia 1+ Anisocytosis 1+ Macrocytosis 1+ PT with INR INR PTT (Actin FS) Anticoagulation Therapy Puncture Site ABG pH ABG pCO2 at Pt Temp ABG pO2 at Pt Temp ABG HCO3 ABG O2 Sat (Measured) ABG O2 Content ABG Base Excess Ignacio Test VBG pH 7.32 POC VBG pCO2 53.5 H POC VBG pO2 21.6 L Mixed VBG HCO3 26.8 H Carboxyhemoglobin Methemoglobin O2 Delivery Device Oxygen Flow Rate Vent Mode Vent Rate Mechanical Rate Pressure Support Vent Sodium Potassium Chloride Carbon Dioxide Anion Gap BUN Creatinine Creat Clearance w eGFR Random Glucose Lactic Acid Calcium Phosphorus Magnesium Total Bilirubin AST ALT Alkaline Phosphatase Creatine Kinase CK-MB (CK-2) Troponin I B-Natriuretic Peptide 66751.20 H Total Protein Albumin Stool Occult Blood Blood Type Antibody Screen Crossmatch 10/20/17 10/20/17 10/20/17 17:29 17:29 17:29 WBC RBC Hgb Hct MCV MCH MCHC RDW Plt Count MPV Neutrophils % Lymphocytes % Monocytes % Eosinophils % Basophils % Hypochromia Platelet Estimate Platelet Comment Polychromasia Anisocytosis Macrocytosis PT with INR Cancelled INR Cancelled PTT (Actin FS) Cancelled Anticoagulation Therapy Puncture Site ABG pH ABG pCO2 at Pt Temp ABG pO2 at Pt Temp ABG HCO3 ABG O2 Sat (Measured) ABG O2 Content ABG Base Excess Ignacio Test VBG pH POC VBG pCO2 POC VBG pO2 Mixed VBG HCO3 Carboxyhemoglobin Methemoglobin O2 Delivery Device Oxygen Flow Rate Vent Mode Vent Rate Mechanical Rate Pressure Support Vent Sodium 135 L Potassium 7.0 H* D Chloride 100 Carbon Dioxide 24 Anion Gap 11 BUN 60 H D Creatinine 7.6 H* Creat Clearance w eGFR 7.39 Random Glucose 231 H Lactic Acid 3.3 H* Calcium 7.7 L Phosphorus Magnesium Total Bilirubin 0.3 D AST 37 ALT 47 D Alkaline Phosphatase 352 H Creatine Kinase 55 CK-MB (CK-2) 3.988 H Troponin I B-Natriuretic Peptide Total Protein 7.0 Albumin 2.8 L Stool Occult Blood Blood Type Antibody Screen Crossmatch 10/20/17 10/20/17 10/20/17 17:29 17:29 18:29 WBC RBC Hgb Hct MCV MCH MCHC RDW Plt Count MPV Neutrophils % Lymphocytes % Monocytes % Eosinophils % Basophils % Hypochromia Platelet Estimate Platelet Comment Polychromasia Anisocytosis Macrocytosis PT with INR INR PTT (Actin FS) Anticoagulation Therapy No Result Required. Puncture Site No Result Required. ABG pH 7.37 ABG pCO2 at Pt Temp 48.9 H ABG pO2 at Pt Temp 117.0 H ABG HCO3 27.6 H ABG O2 Sat (Measured) 98.8 ABG O2 Content 8.3 L* ABG Base Excess 2.7 H Ignacio Test Positive VBG pH POC VBG pCO2 POC VBG pO2 Mixed VBG HCO3 Carboxyhemoglobin 2.6 H Methemoglobin 1.6 H O2 Delivery Device No Result Required. Oxygen Flow Rate No Result Required. Vent Mode No Result Required. Vent Rate No Result Required. Mechanical Rate No Result Required. Pressure Support Vent No Result Required. Sodium Potassium Chloride Carbon Dioxide Anion Gap BUN Creatinine Creat Clearance w eGFR Random Glucose Lactic Acid Calcium Phosphorus Magnesium Total Bilirubin AST ALT Alkaline Phosphatase Creatine Kinase CK-MB (CK-2) Troponin I 0.02 B-Natriuretic Peptide Total Protein Albumin Stool Occult Blood Blood Type A POSITIVE Antibody Screen Negative Crossmatch See Detail 10/20/17 10/21/17 10/21/17 18:29 02:25 08:50 WBC 8.6 RBC 2.71 L Hgb 7.9 L D Hct 23.2 L MCV 85.6 MCH 29.2 MCHC 34.2 RDW 17.6 H D Plt Count 216 MPV 7.7 D Neutrophils % Lymphocytes % Monocytes % Eosinophils % Basophils % Hypochromia Platelet Estimate Platelet Comment Polychromasia Anisocytosis Macrocytosis PT with INR INR PTT (Actin FS) Anticoagulation Therapy Puncture Site ABG pH ABG pCO2 at Pt Temp ABG pO2 at Pt Temp ABG HCO3 ABG O2 Sat (Measured) ABG O2 Content ABG Base Excess Ignacio Test VBG pH POC VBG pCO2 POC VBG pO2 Mixed VBG HCO3 Carboxyhemoglobin Methemoglobin O2 Delivery Device Oxygen Flow Rate Vent Mode Vent Rate Mechanical Rate Pressure Support Vent Sodium Potassium 3.9 D Chloride Carbon Dioxide Anion Gap BUN Creatinine 3.4 H D Creat Clearance w eGFR Random Glucose Lactic Acid Calcium Phosphorus Magnesium Total Bilirubin AST ALT Alkaline Phosphatase Creatine Kinase CK-MB (CK-2) Troponin I B-Natriuretic Peptide Total Protein Albumin Stool Occult Blood Negative Blood Type Antibody Screen Crossmatch 10/21/17 10/21/17 08:50 08:50 WBC RBC Hgb Hct MCV MCH MCHC RDW Plt Count MPV Neutrophils % Lymphocytes % Monocytes % Eosinophils % Basophils % Hypochromia Platelet Estimate Platelet Comment Polychromasia Anisocytosis Macrocytosis PT with INR 14.30 H INR 1.27 H PTT (Actin FS) 30.3 Anticoagulation Therapy Puncture Site ABG pH ABG pCO2 at Pt Temp ABG pO2 at Pt Temp ABG HCO3 ABG O2 Sat (Measured) ABG O2 Content ABG Base Excess Ignacio Test VBG pH POC VBG pCO2 POC VBG pO2 Mixed VBG HCO3 Carboxyhemoglobin Methemoglobin O2 Delivery Device Oxygen Flow Rate Vent Mode Vent Rate Mechanical Rate Pressure Support Vent Sodium 139 Potassium 4.9 D Chloride 100 Carbon Dioxide 31 D Anion Gap 8 BUN 54 H Creatinine 5.2 H D Creat Clearance w eGFR 11.45 Random Glucose 147 H D Lactic Acid Calcium 7.5 L Phosphorus 3.3 D Magnesium 2.1 D Total Bilirubin 0.7 D AST 19 D ALT 36 D Alkaline Phosphatase 284 H Creatine Kinase 36 L CK-MB (CK-2) Troponin I 0.05 D B-Natriuretic Peptide Total Protein 6.5 Albumin 2.6 L Stool Occult Blood Blood Type Antibody Screen Crossmatch Imaging - Results Chest X-ray: Report Reviewed (Unremarkable) EKG: Report Reviewed Problem List - Problems (1) Anemia Code(s): D64.9 - ANEMIA, UNSPECIFIED (2) Chest pain due to coronary artery disease Code(s): R07.9 - CHEST PAIN, UNSPECIFIED; I25.10 - ATHSCL HEART DISEASE OF [place] CORONARY ARTERY W/O ANG PCTRS (3) ESRD (end stage renal disease) Code(s): N18.6 - END STAGE RENAL DISEASE (4) Tachycardia Code(s): R00.0 - TACHYCARDIA, UNSPECIFIED (5) Upper GI bleed Code(s): K92.2 - GASTROINTESTINAL HEMORRHAGE, UNSPECIFIED (6) Diabetes Code(s): E11.9 - TYPE 2 DIABETES MELLITUS WITHOUT COMPLICATIONS Qualifiers: Diabetes mellitus type: type 2 Diabetes mellitus complication status: with unspecified complications (7) HTN (hypertension) Code(s): I10 - ESSENTIAL (PRIMARY) HYPERTENSION Qualifiers: Hypertension type: essential hypertension Qualified Code(s): I10 - Essential (primary) hypertension (8) Thrombosis of dialysis vascular access Code(s): T82.868A - THROMBOSIS DUE TO VASCULAR PROSTH DEV/GRFT, INIT Qualifiers: Encounter type: initial encounter Qualified Code(s): T82.868A - Thrombosis due to vascular prosthetic devices, implants and grafts, initial encounter Assessment/Plan 1. GI bleed 2. Sinus tachycardia due to above with profound anemia 3. Coronary artery disease s/p recent CABG, angina 4. Hypertension currently low BP due to above 5. Hypercholesterolemia 6. ESRD on HD, history of AV graft failure history of thrombectomy 7. Probable diabetes mellitus with peripheral neuropathy and history of amputations of digits PLAN: 1. Transfuse PRBC and follow CBC 2. May use IV Lopressor as needed 3. Proceed with GI evaluation and identify source of bleed 4. Cardiac medications are on hold, but to resume once cleared 5. Renal input noted. HD as per renal Further plans are to follow López Grayson MD
--- NOTE | 2017-10-21 12:41 | PN ---
Physical Exam: SUBJECTIVE: Patient seen and examined in ICU. Normal vital signs overnight, tachycardic before rounds. Patient is complaining of chest pain. Chest pain is located along the sternal border, increases with palpation. Denies shortness of breath. Had CABG 08/28/17. No hypoxia OBJECTIVE: Vital Signs Period Temp Pulse Resp BP Sys/Harris Pulse Ox Last 24 Hr 97.7 F-98.2 F 77-130 12-18 93-140/40-74 95-100 GENERAL: The patient is awake, alert, and fully oriented, in no acute distress. HEAD: Normal with no signs of trauma. EYES: PERRL, extraocular movements intact, sclera anicteric, conjunctiva clear. CHEST: Tender to palpation along left superior ribs NECK: Trachea midline, full range of motion, supple. LUNGS: Breath sounds equal, clear to auscultation bilaterally, no wheezes, no crackles, no accessory muscle use. HEART: Regular rate and rhythm, S1, S2 without murmur, rub or gallop. ABDOMEN: Soft, nontender, nondistended, normoactive bowel sounds, no guarding, no rebound, no hepatosplenomegaly, no masses. EXTREMITIES: edematous NEUROLOGICAL: Cranial nerves II through XII grossly intact. Normal speech, gait not observed. Laboratory Results - last 24 hr 10/20/17 10/20/17 10/20/17 17:27 17:27 17:29 WBC 9.4 D RBC 2.37 L D Hgb 6.6 L* D Hct 21.0 L D MCV 88.9 MCH 28.0 MCHC 31.5 L RDW 20.1 H D Plt Count 250 D MPV 8.6 Neutrophils % 74.7 Lymphocytes % 14.8 Monocytes % 8.3 Eosinophils % 1.1 Basophils % 1.1 Hypochromia 1+ Platelet Estimate Adequate Platelet Comment Polychromasia 1+ Anisocytosis 1+ Macrocytosis 1+ PT with INR INR PTT (Actin FS) Anticoagulation Therapy Puncture Site ABG pH ABG pCO2 at Pt Temp ABG pO2 at Pt Temp ABG HCO3 ABG O2 Sat (Measured) ABG O2 Content ABG Base Excess Ignacio Test VBG pH 7.32 POC VBG pCO2 53.5 H POC VBG pO2 21.6 L Mixed VBG HCO3 26.8 H Carboxyhemoglobin Methemoglobin O2 Delivery Device Oxygen Flow Rate Vent Mode Vent Rate Mechanical Rate Pressure Support Vent Sodium Potassium Chloride Carbon Dioxide Anion Gap BUN Creatinine Creat Clearance w eGFR Random Glucose Lactic Acid Calcium Phosphorus Magnesium Total Bilirubin AST ALT Alkaline Phosphatase Creatine Kinase CK-MB (CK-2) Troponin I B-Natriuretic Peptide 18896.20 H Total Protein Albumin Stool Occult Blood Blood Type Antibody Screen Crossmatch 10/20/17 10/20/17 10/20/17 17:29 17:29 17:29 WBC RBC Hgb Hct MCV MCH MCHC RDW Plt Count MPV Neutrophils % Lymphocytes % Monocytes % Eosinophils % Basophils % Hypochromia Platelet Estimate Platelet Comment Polychromasia Anisocytosis Macrocytosis PT with INR Cancelled INR Cancelled PTT (Actin FS) Cancelled Anticoagulation Therapy Puncture Site ABG pH ABG pCO2 at Pt Temp ABG pO2 at Pt Temp ABG HCO3 ABG O2 Sat (Measured) ABG O2 Content ABG Base Excess Ignacio Test VBG pH POC VBG pCO2 POC VBG pO2 Mixed VBG HCO3 Carboxyhemoglobin Methemoglobin O2 Delivery Device Oxygen Flow Rate Vent Mode Vent Rate Mechanical Rate Pressure Support Vent Sodium 135 L Potassium 7.0 H* D Chloride 100 Carbon Dioxide 24 Anion Gap 11 BUN 60 H D Creatinine 7.6 H* Creat Clearance w eGFR 7.39 Random Glucose 231 H Lactic Acid 3.3 H* Calcium 7.7 L Phosphorus Magnesium Total Bilirubin 0.3 D AST 37 ALT 47 D Alkaline Phosphatase 352 H Creatine Kinase 55 CK-MB (CK-2) 3.988 H Troponin I B-Natriuretic Peptide Total Protein 7.0 Albumin 2.8 L Stool Occult Blood Blood Type Antibody Screen Crossmatch 10/20/17 10/20/17 10/20/17 17:29 17:29 18:29 WBC RBC Hgb Hct MCV MCH MCHC RDW Plt Count MPV Neutrophils % Lymphocytes % Monocytes % Eosinophils % Basophils % Hypochromia Platelet Estimate Platelet Comment Polychromasia Anisocytosis Macrocytosis PT with INR INR PTT (Actin FS) Anticoagulation Therapy No Result Required. Puncture Site No Result Required. ABG pH 7.37 ABG pCO2 at Pt Temp 48.9 H ABG pO2 at Pt Temp 117.0 H ABG HCO3 27.6 H ABG O2 Sat (Measured) 98.8 ABG O2 Content 8.3 L* ABG Base Excess 2.7 H Ignacio Test Positive VBG pH POC VBG pCO2 POC VBG pO2 Mixed VBG HCO3 Carboxyhemoglobin 2.6 H Methemoglobin 1.6 H O2 Delivery Device No Result Required. Oxygen Flow Rate No Result Required. Vent Mode No Result Required. Vent Rate No Result Required. Mechanical Rate No Result Required. Pressure Support Vent No Result Required. Sodium Potassium Chloride Carbon Dioxide Anion Gap BUN Creatinine Creat Clearance w eGFR Random Glucose Lactic Acid Calcium Phosphorus Magnesium Total Bilirubin AST ALT Alkaline Phosphatase Creatine Kinase CK-MB (CK-2) Troponin I 0.02 B-Natriuretic Peptide Total Protein Albumin Stool Occult Blood Blood Type A POSITIVE Antibody Screen Negative Crossmatch See Detail 10/20/17 10/21/17 10/21/17 18:29 02:25 08:50 WBC 8.6 RBC 2.71 L Hgb 7.9 L D Hct 23.2 L MCV 85.6 MCH 29.2 MCHC 34.2 RDW 17.6 H D Plt Count 216 MPV 7.7 D Neutrophils % Lymphocytes % Monocytes % Eosinophils % Basophils % Hypochromia Platelet Estimate Platelet Comment Polychromasia Anisocytosis Macrocytosis PT with INR INR PTT (Actin FS) Anticoagulation Therapy Puncture Site ABG pH ABG pCO2 at Pt Temp ABG pO2 at Pt Temp ABG HCO3 ABG O2 Sat (Measured) ABG O2 Content ABG Base Excess Ignacio Test VBG pH POC VBG pCO2 POC VBG pO2 Mixed VBG HCO3 Carboxyhemoglobin Methemoglobin O2 Delivery Device Oxygen Flow Rate Vent Mode Vent Rate Mechanical Rate Pressure Support Vent Sodium Potassium 3.9 D Chloride Carbon Dioxide Anion Gap BUN Creatinine 3.4 H D Creat Clearance w eGFR Random Glucose Lactic Acid Calcium Phosphorus Magnesium Total Bilirubin AST ALT Alkaline Phosphatase Creatine Kinase CK-MB (CK-2) Troponin I B-Natriuretic Peptide Total Protein Albumin Stool Occult Blood Negative Blood Type Antibody Screen Crossmatch 10/21/17 10/21/17 08:50 08:50 WBC RBC Hgb Hct MCV MCH MCHC RDW Plt Count MPV Neutrophils % Lymphocytes % Monocytes % Eosinophils % Basophils % Hypochromia Platelet Estimate Platelet Comment Polychromasia Anisocytosis Macrocytosis PT with INR 14.30 H INR 1.27 H PTT (Actin FS) 30.3 Anticoagulation Therapy Puncture Site ABG pH ABG pCO2 at Pt Temp ABG pO2 at Pt Temp ABG HCO3 ABG O2 Sat (Measured) ABG O2 Content ABG Base Excess Ignacio Test VBG pH POC VBG pCO2 POC VBG pO2 Mixed VBG HCO3 Carboxyhemoglobin Methemoglobin O2 Delivery Device Oxygen Flow Rate Vent Mode Vent Rate Mechanical Rate Pressure Support Vent Sodium 139 Potassium 4.9 D Chloride 100 Carbon Dioxide 31 D Anion Gap 8 BUN 54 H Creatinine 5.2 H D Creat Clearance w eGFR 11.45 Random Glucose 147 H D Lactic Acid Calcium 7.5 L Phosphorus 3.3 D Magnesium 2.1 D Total Bilirubin 0.7 D AST 19 D ALT 36 D Alkaline Phosphatase 284 H Creatine Kinase 36 L CK-MB (CK-2) Troponin I 0.05 D B-Natriuretic Peptide Total Protein 6.5 Albumin 2.6 L Stool Occult Blood Blood Type Antibody Screen Crossmatch Active Medications Generic Name Dose Route Start Last Admin Trade Name Freq PRN Reason Stop Dose Admin Chlorhexidine Gluconate 1 applic 10/20/17 22:00 10/20/17 22:50 Hibiclens For Decolonization - TP 1 applic HS VALERIA Administration Pantoprazole Sodium 80 mg/ 100 mls @ 10 mls/hr 10/20/17 19:00 10/21/17 06:21 Sodium Chloride IVPB 10 mls/hr Q10H VALERIA Administration 8 MG/HR Morphine Sulfate 2 mg 10/20/17 22:06 10/21/17 08:35 Morphine Sulfate IVPUSH 2 mg Q3H PRN Administration PAIN LEVEL 1-5 Mupirocin 1 applic 10/20/17 22:00 10/21/17 10:42 Bactroban Ointment (For Decolonization) - NS 10/25/17 21:59 1 applic BID VALERIA Administration ASSESSMENT/PLAN: Patient is 57M with history of ESRD (TThS), CAD s/p CABG on 08/28/17, HTN, HLD, DM , Neuropathy here today with GI bleed and chest pain. GI #GI Bleed -No further episodes of melena today -Endoscopy planned for today, scuttled due to chest pain and tachycardia -Cardiology believes patient is stable enough for procedure -On protonix drip Cardiovascular #Tachycardia -Tachycardic to 130, BPs with maps 55-65, MAPS now 65 -Given 500ml fluids, 5 metoprolol, HR down to low 120s -Differential for tachycardia includes, but is not limited to: acs, arrhythmia, mediastinitis, anemia, pericarditis -Hgb stable, will transfuse one unit -DVT U/S #Chest pain w/ history CAD s/p CABG -No aspirin or heparin due to GI bleed -Trop neg x2 Renal #ESRD on dialysis with hyperkalemia to 7.0 -Following renal recs -Patient getting dialysis today FEN/Diet -Replete/dialyze as necessary -NPO Dispo -Continued ICU care -Scope tomorrow Visit type - Emergency Visit Emergency Visit: Yes ED Registration Date: 10/20/17 Care time: The patient presented to the Emergency Department on the above date and was hospitalized for further evaluation of their emergent condition. - New Patient This patient is new to me today: Yes Date on this admission: 10/21/17 - Critical Care Critical Care patient: Yes Total Critical Care Time (in minutes): 45 Critical Care Statement: The care of this patient involved high complexity decision making to prevent further life threatening deterioration of the patient 's condition and/or to evaluate & treat vital organ system(s) failure or risk of failure.
--- NOTE | 2017-10-21 13:24 | CON.GI ---
Consult Consult Specialty:: GI Reason for Consultation:: symptomatic anemia - History of Present Illness History of Present Illness: chart reviewed. Events noted. Patient was seen in the ICU earlier this morning. As per initial intake: HPI: Briefly Mr Rodriguez is a 57 y/o man with PMH ESRD (HD-,,), CAD s/p recent CABG, HTN, HLD who presented today to ED w/ low bp and one episode of hematemesis while at his PCP's office. He denies hx of GIB. On arrival to the ED H/H 6.6/21.0, K 7.0, without acute EKG changes. Patient denies fever, chills , CP, palpitations, AP, diarrhea, constipation, melena. Pt was started on protonix gtt, Nephrology was consulted. 2 PRBC were ordered, and plans for urgent HD tonight made. Transferred to ICU for initiation of O/n dialysis, and likely EGD in am. Hemodynamically stable At the time of this encounter, the patient appears to be not in distress however has tachycardia in the 130s with blood pressure 100 systolic over 60 diastolic. Complaints of diffuse chest pain. Denies shortness of breath, dysphagia, odynophagia, nausea. No reports of melena, hematochezia, or hematemesis. No reports of BMs since yesterday. status post 2 units of PRBC and hemodialysis last night. As of this encounter no repeat blood work available. EGD on hold until seen by cardiology. - History Source History Provided By: Patient, Medical Record, Caregiver - Past Medical History [employer]: Yes: Peripheral Neuropathy Cardio/Vascular: Yes: CAD (CABG), HTN, Hyperlipdemia Renal/: Yes: Renal Failure, Hemodialysis Musculoskeletal: Yes: Other (peripheral vascular disease) Endocrine: Yes: Diabetes Mellitus - Past Surgical History Past Surgical History: Yes: Amputation, AV Fistula/Graft, CABG - Alcohol/Substance Use Hx Alcohol Use: No History of Substance Use: reports: None - Smoking History Smoking history: Never smoked Have you smoked in the past 12 months: No Aproximately how many cigarettes per day: 0 - Social History Usual Living Arrangement: With Spouse ADL: Independent History of Recent Travel: No Home Medications - Allergies Allergies/Adverse Reactions: Allergies Allergy/AdvReac Type Severity Reaction Status Date / Time No Known Drug Allergies Allergy Verified 04/09/17 16:57 - Home Medications Home Medications: Ambulatory Orders Aspirin 81 mg PO DAILY #0 tab.chew 01/07/13 Esomeprazole Mag Trihydrate [Nexium] 40 mg PO DAILY 10/10/14 Amlodipine Besylate [Norvasc -] 10 mg PO DAILY tablet 06/14/16 Atorvastatin Ca [Lipitor] 10 mg PO HS #30 tablet 06/14/16 Insulin Glargine,Hum.rec.anlog [Lantus (10mL VIAL) -] 30 units SQ HS 07/05/16 Albuterol 0.083% Nebulizer Faviola [Ventolin 0.083% Nebulizer Soln -] 1 amp NEB Q4H PRN #0 amp 08/10/16 Benzonatate 200 mg PO DAILY 04/09/17 Calcium Acetate 667 mg PO DAILY 04/09/17 Folic Acid/Vit B Complex and C [Piedad-Kelly Tablet] 0.8 mg PO DAILY 04/09/17 Furosemide [Lasix] 80 mg PO DAILY 04/09/17 Insulin Glargine,Hum.rec.anlog [Lantus (10mL VIAL) -] 30 units SQ AM 04/09/17 Labetalol HCl [Normodyne -] 200 mg PO BID 04/09/17 Metoprolol Succinate [Toprol XL -] 25 mg PO DAILY 04/09/17 Montelukast Na [Singulair -] 10 mg PO DAILY 04/09/17 Sevelamer Carbonate [Renvela -] 800 mg PO TID 04/09/17 Acetaminophen [Tylenol .Regular Strength -] 650 mg PO Q4H PRN #0 tablet Aspirin [ASA -] 81 mg PO DAILY tab.chew 04/21/17 Cefazolin Sodium in 0.9 % NaCl [Cefazolin-0.9% NaCl 2 G/10 ml] 2 gm IV TID #18 syringe 04/21/17 Insulin Sliding Scale [Novolog Vial Sliding Scale -] 1 vial SQ TIDAC units Lidocaine Patch Removal [Lidoderm Patch Removal] 1 each MC DAILY@2200 each Losartan Potassium [Cozaar -] 50 mg PO DAILY tablet 04/21/17 Metoclopramide HCl [Reglan -] 5 mg PO TIDAC tablet 10/23/17 Mupirocin Ointment [Bactroban 2% Ointment -] 1 applic TP BID applic 04/21/17 Oxycodone HCl 10 mg PO Q8H #20 tablet MDD 3 04/21/17 Rivaroxaban [Xarelto -] 15 mg PO DAILY tablet 04/21/17 Zolpidem Tartrate [Ambien] 5 mg PO HS PRN #30 tablet MDD 1 04/21/17 Family Disease History - Family Disease History Family History: Unremarkable (Noncontributory) Other Family History: History of hypertension, coronary artery disease Review of Systems Findings/Remarks: as per H&P and HPI Physical Exam-GI Vital Signs: Vital Signs Temperature 97.8 F 10/21/17 02:00 Pulse Rate 120 H 10/21/17 10:00 Respiratory Rate 12 10/21/17 10:00 Blood Pressure 99/40 10/21/17 10:00 O2 Sat by Pulse Oximetry (%) 100 10/21/17 09:00 Constitutional: Yes: No Distress, Calm Eyes: Yes: Conjunctiva Clear HENT: Yes: Atraumatic Neck: Yes: Supple Cardiovascular: Yes: Tachycardia Respiratory: Yes: Regular Gastrointestinal Inspection: No: Ascites, Distention ...Auscultate: Yes: Normoactive Bowel Sounds ...Palpate: Yes: Soft. No: Firm/Rigid, Guarding, Mass, Pulsatile Mass, Tenderness, Tenderness, Rebound ...Rectal Exam: Yes: Guaiac Positive Neurological: Yes: Alert, Oriented Labs: CBC, BMP 10/21/17 08:50 10/21/17 08:50 INR, PTT INR 1.27 (0.82-1.09) H 10/21/17 08:50 Laboratory Tests 10/20/17 10/20/17 10/20/17 17:27 17:27 17:29 WBC 9.4 D RBC 2.37 L D Hgb 6.6 L* D Hct 21.0 L D MCV 88.9 MCH 28.0 MCHC 31.5 L RDW 20.1 H D Plt Count 250 D MPV 8.6 Neutrophils % 74.7 Lymphocytes % 14.8 Monocytes % 8.3 Eosinophils % 1.1 Basophils % 1.1 Hypochromia 1+ Platelet Estimate Adequate Platelet Comment Polychromasia 1+ Anisocytosis 1+ Macrocytosis 1+ PT with INR INR PTT (Actin FS) Anticoagulation Therapy Puncture Site ABG pH ABG pCO2 at Pt Temp ABG pO2 at Pt Temp ABG HCO3 ABG O2 Sat (Measured) ABG O2 Content ABG Base Excess Ignacio Test VBG pH 7.32 POC VBG pCO2 53.5 H POC VBG pO2 21.6 L Mixed VBG HCO3 26.8 H Carboxyhemoglobin Methemoglobin O2 Delivery Device Oxygen Flow Rate Vent Mode Vent Rate Mechanical Rate Pressure Support Vent Sodium Potassium Chloride Carbon Dioxide Anion Gap BUN Creatinine Creat Clearance w eGFR Random Glucose Lactic Acid Calcium Phosphorus Magnesium Total Bilirubin AST ALT Alkaline Phosphatase Creatine Kinase CK-MB (CK-2) Troponin I B-Natriuretic Peptide 71680.20 H Total Protein Albumin Stool Occult Blood Blood Type Antibody Screen Crossmatch 10/20/17 10/20/17 10/20/17 17:29 17:29 17:29 WBC RBC Hgb Hct MCV MCH MCHC RDW Plt Count MPV Neutrophils % Lymphocytes % Monocytes % Eosinophils % Basophils % Hypochromia Platelet Estimate Platelet Comment Polychromasia Anisocytosis Macrocytosis PT with INR Cancelled INR Cancelled PTT (Actin FS) Cancelled Anticoagulation Therapy Puncture Site ABG pH ABG pCO2 at Pt Temp ABG pO2 at Pt Temp ABG HCO3 ABG O2 Sat (Measured) ABG O2 Content ABG Base Excess Ignacio Test VBG pH POC VBG pCO2 POC VBG pO2 Mixed VBG HCO3 Carboxyhemoglobin Methemoglobin O2 Delivery Device Oxygen Flow Rate Vent Mode Vent Rate Mechanical Rate Pressure Support Vent Sodium 135 L Potassium 7.0 H* D Chloride 100 Carbon Dioxide 24 Anion Gap 11 BUN 60 H D Creatinine 7.6 H* Creat Clearance w eGFR 7.39 Random Glucose 231 H Lactic Acid 3.3 H* Calcium 7.7 L Phosphorus Magnesium Total Bilirubin 0.3 D AST 37 ALT 47 D Alkaline Phosphatase 352 H Creatine Kinase 55 CK-MB (CK-2) 3.988 H Troponin I B-Natriuretic Peptide Total Protein 7.0 Albumin 2.8 L Stool Occult Blood Blood Type Antibody Screen Crossmatch 10/20/17 10/20/17 10/20/17 17:29 17:29 18:29 WBC RBC Hgb Hct MCV MCH MCHC RDW Plt Count MPV Neutrophils % Lymphocytes % Monocytes % Eosinophils % Basophils % Hypochromia Platelet Estimate Platelet Comment Polychromasia Anisocytosis Macrocytosis PT with INR INR PTT (Actin FS) Anticoagulation Therapy No Result Required. Puncture Site No Result Required. ABG pH 7.37 ABG pCO2 at Pt Temp 48.9 H ABG pO2 at Pt Temp 117.0 H ABG HCO3 27.6 H ABG O2 Sat (Measured) 98.8 ABG O2 Content 8.3 L* ABG Base Excess 2.7 H Ignacio Test Positive VBG pH POC VBG pCO2 POC VBG pO2 Mixed VBG HCO3 Carboxyhemoglobin 2.6 H Methemoglobin 1.6 H O2 Delivery Device No Result Required. Oxygen Flow Rate No Result Required. Vent Mode No Result Required. Vent Rate No Result Required. Mechanical Rate No Result Required. Pressure Support Vent No Result Required. Sodium Potassium Chloride Carbon Dioxide Anion Gap BUN Creatinine Creat Clearance w eGFR Random Glucose Lactic Acid Calcium Phosphorus Magnesium Total Bilirubin AST ALT Alkaline Phosphatase Creatine Kinase CK-MB (CK-2) Troponin I 0.02 B-Natriuretic Peptide Total Protein Albumin Stool Occult Blood Blood Type A POSITIVE Antibody Screen Negative Crossmatch See Detail 10/20/17 10/21/17 10/21/17 18:29 02:25 08:50 WBC 8.6 RBC 2.71 L Hgb 7.9 L D Hct 23.2 L MCV 85.6 MCH 29.2 MCHC 34.2 RDW 17.6 H D Plt Count 216 MPV 7.7 D Neutrophils % Lymphocytes % Monocytes % Eosinophils % Basophils % Hypochromia Platelet Estimate Platelet Comment Polychromasia Anisocytosis Macrocytosis PT with INR INR PTT (Actin FS) Anticoagulation Therapy Puncture Site ABG pH ABG pCO2 at Pt Temp ABG pO2 at Pt Temp ABG HCO3 ABG O2 Sat (Measured) ABG O2 Content ABG Base Excess Ignacio Test VBG pH POC VBG pCO2 POC VBG pO2 Mixed VBG HCO3 Carboxyhemoglobin Methemoglobin O2 Delivery Device Oxygen Flow Rate Vent Mode Vent Rate Mechanical Rate Pressure Support Vent Sodium Potassium 3.9 D Chloride Carbon Dioxide Anion Gap BUN Creatinine 3.4 H D Creat Clearance w eGFR Random Glucose Lactic Acid Calcium Phosphorus Magnesium Total Bilirubin AST ALT Alkaline Phosphatase Creatine Kinase CK-MB (CK-2) Troponin I B-Natriuretic Peptide Total Protein Albumin Stool Occult Blood Negative Blood Type Antibody Screen Crossmatch 10/21/17 10/21/17 08:50 08:50 WBC RBC Hgb Hct MCV MCH MCHC RDW Plt Count MPV Neutrophils % Lymphocytes % Monocytes % Eosinophils % Basophils % Hypochromia Platelet Estimate Platelet Comment Polychromasia Anisocytosis Macrocytosis PT with INR 14.30 H INR 1.27 H PTT (Actin FS) 30.3 Anticoagulation Therapy Puncture Site ABG pH ABG pCO2 at Pt Temp ABG pO2 at Pt Temp ABG HCO3 ABG O2 Sat (Measured) ABG O2 Content ABG Base Excess Ignacio Test VBG pH POC VBG pCO2 POC VBG pO2 Mixed VBG HCO3 Carboxyhemoglobin Methemoglobin O2 Delivery Device Oxygen Flow Rate Vent Mode Vent Rate Mechanical Rate Pressure Support Vent Sodium 139 Potassium 4.9 D Chloride 100 Carbon Dioxide 31 D Anion Gap 8 BUN 54 H Creatinine 5.2 H D Creat Clearance w eGFR 11.45 Random Glucose 147 H D Lactic Acid Calcium 7.5 L Phosphorus 3.3 D Magnesium 2.1 D Total Bilirubin 0.7 D AST 19 D ALT 36 D Alkaline Phosphatase 284 H Creatine Kinase 36 L CK-MB (CK-2) Troponin I 0.05 D B-Natriuretic Peptide Total Protein 6.5 Albumin 2.6 L Stool Occult Blood Blood Type Antibody Screen Crossmatch Problem List - Problems (1) Symptomatic anemia Code(s): D64.9 - ANEMIA, UNSPECIFIED (2) Anemia due to gastrointestinal blood loss Code(s): D50.0 - IRON DEFICIENCY ANEMIA SECONDARY TO BLOOD LOSS (CHRONIC) Assessment/Plan Cardiology evaluation noted. Recent CABG. Symptomatic anemia. No stigmata of ongoing GI bleeding at this time. Agree with PPI. Nothing by mouth, Except medications today. IV hydration as per ICU team. Bring hemoglobin to 10. Monitor electrolytes. Plan upper endoscopy as discussed with the patient.
[2017-10-21] MEDS ORDERED: EPOETIN ALFA 10,000 UNIT/1 ML VIAL IVPUSH ONE (14:30)
[2017-10-21 16:55] LABS: BASO % 0.9 % (0-2.0); EOS % 1.2 % (0-4.5); HEMATOCRIT 26.9 % (35.4-49); HEMOGLOBIN 9.4 GM/dL (11.7-16.9); LYMPH % 22.8 % (8-40); MCHC 35.2 g/dl (32.0-35.9); MEAN CELL VOLUME 85.3 fl (80-96); MEAN PLT VOLUME 7.8 fl (7.5-11.1); NEUT % 66.1 % (42.8-82.8); PLATELET COUNT 242 K/MM3 (134-434); RBC 3.15 M/mm3 (4.00-5.60); RDW 17.7 % (11.9-15.9); WHITE BLOOD COUNT 6.8 K/mm3 (4.0-10.0)
[2017-10-21] MEDS: CHLORHEXIDINE GLUCONATE 4% CLEANSER FOR DECOLONIZATION TP SCH (22:03)
[2017-10-22] MEDS: PANTOPRAZOLE SODIUM 80 MG in SODIUM CHLORIDE 100 ML IVPB SCH (05:50)
[2017-10-22] MEDS: morphine SULFATE 4 MG/ML VIAL IVPUSH PRN ×4 (05:51→22:23)
--- NOTE | 2017-10-22 09:12 | PN ---
Progress Note (short form) - Note Progress Note: RENAL ADMITTED WITH GI BLEED GIVEN 3 U PRBCS HB 9.8 YESTERDAY EPO 10K WILL REDOSE PROCRIT 20K AND GIVE VENOFER 100 ONE DOSE IF HB OVER 10 WILL BE GETTING THE EGD PAIN IN CHEST SHARP CHRONIC SEEMS MORE RELATED TO THE CABG SCAR ( NEUROPATHIC) VITALS STABLE CHEST CLEAR ABD SOFR NO EDEMA LABS NOTED CASE D/W IM RESIDENT NEXT HD IN AM
[2017-10-22 09:27] LABS: ALBUMIN 2.8 g/dl (3.4-5.0); ANION GAP 6 (8-16); BILIRUBIN,TOTAL 0.4 mg/dL (0.2-1.0); BLOOD UREA NITROGEN 44 mg/dL (7-18); CALCIUM 8.2 mg/dL (8.5-10.1); CHLORIDE 103 mmol/L (98-107); CO2 29 mmol/L (21-32); CREATININE 4.4 mg/dL (0.7-1.3); GLUCOSE,RANDOM 109 mg/dL (74-106); PHOSPHOROUS 3.9 mg/dL (2.5-4.9); POTASSIUM 4.6 mmol/L (3.5-5.1); SGOT/AST 19 U/L (15-37); SGPT/ALT 29 U/L (12-78); SODIUM 138 mmol/L (136-145); TOT PROT 6.7 g/dl (6.4-8.2)
[2017-10-22 09:28] LABS: ALK PHOS 246 U/L (45-117)
[2017-10-22 10:24] LABS: BASO % 0.8 % (0-2.0); EOS % 1.7 % (0-4.5); HEMOGLOBIN 8.8 GM/dL (11.7-16.9); LYMPH % 23.5 % (8-40); MCH 29.4 pg (25.7-33.7); MCHC 33.7 g/dl (32.0-35.9); MEAN CELL VOLUME 87.1 fl (80-96); MEAN PLT VOLUME 7.8 fl (7.5-11.1); MONO % 10.8 % (3.8-10.2); NEUT % 63.2 % (42.8-82.8); PLATELET COUNT 196 K/MM3 (134-434); RBC 2.98 M/mm3 (4.00-5.60); RDW 17.8 % (11.9-15.9); WHITE BLOOD COUNT 6.3 K/mm3 (4.0-10.0)
--- NOTE | 2017-10-22 10:52 | PN ---
Physical Exam: SUBJECTIVE: Patient seen and examined in ICU. No acute events overnight. Still complaining of chest pain, reproducible. OBJECTIVE: Vital Signs Period Temp Pulse Resp BP Sys/Harris Pulse Ox Last 24 Hr 98 F-98.6 F 69-78 12-20 91-134/34-66 98-100 GENERAL: The patient is awake, alert, and fully oriented, in no acute distress. EYES: PERRL, extraocular movements intact, sclera anicteric, conjunctiva clear. ENT: Ears normal, nares patent, oropharynx clear without exudates, moist mucous membranes. LUNGS: Breath sounds equal, clear to auscultation bilaterally, no wheezes, no crackles, no accessory muscle use. HEART: Regular rate and rhythm, S1, S2 without murmur, rub or gallop. ABDOMEN: Soft, nontender, nondistended, normoactive bowel sounds EXTREMITIES: 2+ pulses, warm, well-perfused, no edema. NEUROLOGICAL: Cranial nerves II through XII grossly intact. Normal speech, gait not observed. Laboratory Results - last 24 hr 10/20/17 10/20/17 10/21/17 17:29 23:50 16:15 WBC 6.8 RBC 3.15 L Hgb 9.4 L D Hct 26.9 L D MCV 85.3 MCH 30.0 MCHC 35.2 RDW 17.7 H Plt Count 242 MPV 7.8 Neutrophils % 66.1 Lymphocytes % 22.8 D Monocytes % 9.0 Eosinophils % 1.2 Basophils % 0.9 Sodium Potassium Chloride Carbon Dioxide Anion Gap BUN Creatinine Creat Clearance w eGFR Random Glucose Calcium Phosphorus Magnesium Total Bilirubin AST ALT Alkaline Phosphatase Troponin I Total Protein Albumin Hep C Ab Diagnostic <0.1 Liver Fibrosis Interp Blood Type A POSITIVE Antibody Screen Negative Crossmatch See Detail 10/21/17 10/22/17 10/22/17 16:15 08:45 08:45 WBC 6.3 RBC 2.98 L Hgb 8.8 L Hct 26.0 L MCV 87.1 MCH 29.4 MCHC 33.7 RDW 17.8 H Plt Count 196 MPV 7.8 Neutrophils % 63.2 Lymphocytes % 23.5 Monocytes % 10.8 H Eosinophils % 1.7 Basophils % 0.8 Sodium 138 Potassium 4.6 Chloride 103 Carbon Dioxide 29 Anion Gap 6 L BUN 44 H Creatinine 4.4 H Creat Clearance w eGFR 13.88 Random Glucose 109 H D Calcium 8.2 L Phosphorus 3.9 Magnesium 2.0 Total Bilirubin 0.4 D AST 19 ALT 29 Alkaline Phosphatase 246 H Troponin I 0.11 H D Total Protein 6.7 Albumin 2.8 L Hep C Ab Diagnostic Liver Fibrosis Interp Blood Type Antibody Screen Crossmatch Active Medications Generic Name Dose Route Start Last Admin Trade Name Freq PRN Reason Stop Dose Admin Chlorhexidine Gluconate 1 applic 10/20/17 22:00 10/21/17 22:03 Hibiclens For Decolonization - TP 1 applic HS VALERIA Administration Epoetin Jared 20,000 unit 10/22/17 09:12 Procrit - SQ 10/22/17 09:13 ONCE ONE Pantoprazole Sodium 80 mg/ 100 mls @ 10 mls/hr 10/20/17 19:00 10/22/17 05:50 Sodium Chloride IVPB 10 mls/hr Q10H VALERIA Administration 8 MG/HR Iron Sucrose 100 mg/ Sodium 100 mls @ 200 mls/hr 10/22/17 09:12 Chloride IVPB 10/22/17 09:41 ONCE ONE Morphine Sulfate 2 mg 10/20/17 22:06 10/22/17 09:23 Morphine Sulfate IVPUSH 2 mg Q3H PRN Administration PAIN LEVEL 1-5 Mupirocin 1 applic 10/20/17 22:00 10/21/17 22:03 Bactroban Ointment (For Decolonization) - NS 10/25/17 21:59 1 applic BID VALERIA Administration ASSESSMENT/PLAN: Patient is 57M with history of ESRD (TThS), CAD s/p CABG on 08/28/17, HTN, HLD, DM , Neuropathy here today with GI bleed and chest pain. GI #GI Bleed -No further episodes of bleeds today -Endoscopy planned for today -Cardiology believes patient is stable enough for procedure -On protonix drip Cardiovascular #Tachycardia -Tachycardic to 130 yesterday, resolved after dialysis with PRBC -Troponin 0.11, likely due to kidney failure #Chest pain w/ history CAD s/p CABG -No aspirin or heparin due to GI bleed -Chest pain is reproducible, on outpatient oxycodone, like secondary to recent surgery -Morphine PRN Renal #ESRD on dialysis with hyperkalemia to 7.0 -Following renal recs -No dialysis today FEN/Diet -Replete/dialyze as necessary -NPO Dispo -Transfer to med/surg -Scope today Visit type - Emergency Visit Emergency Visit: Yes ED Registration Date: 10/20/17 Care time: The patient presented to the Emergency Department on the above date and was hospitalized for further evaluation of their emergent condition. - New Patient This patient is new to me today: No - Critical Care Critical Care patient: Yes Total Critical Care Time (in minutes): 45 Critical Care Statement: The care of this patient involved high complexity decision making to prevent further life threatening deterioration of the patient 's condition and/or to evaluate & treat vital organ system(s) failure or risk of failure.
--- NOTE | 2017-10-22 11:00 | PN ---
Teaching Attending Note Name of Resident: Jose Ramon Huntley ATTENDING PHYSICIAN STATEMENT I saw and evaluated the patient. I reviewed the resident's note and discussed the case with the resident. I agree with the resident's findings and plan as documented. SUBJECTIVE: Pt seen and examined in the ICU. No further bleeding noted. Wants to eat. Still with reproducible chest pain. H/H stable but drifting. OBJECTIVE: Last Vital Signs Temp Pulse Resp BP Pulse Ox 98 F 72 16 115/58 98 10/22/17 10:00 10/22/17 10:00 10/22/17 10:00 10/22/17 10:00 10/22/17 09:00 Intake & Output 10/19/17 10/20/17 10/21/17 10/22/17 23:59 23:59 23:59 23:59 Intake Total 730 1080 70 Balance 730 1080 70 Weight 94.12 kg 91.881 kg Gen: NAD at rest Heart: RRR Lung: decreased breath sounds at the bases Abd: soft, nontender Ext: no edema CBC, BMP 10/22/17 08:45 10/22/17 08:45 Active Medications Chlorhexidine Gluconate (Hibiclens For Decolonization -) 1 applic TP HS VALERIA Last Admin: 10/21/17 22:03 Dose: 1 applic Epoetin Jared (Procrit -) 20,000 unit SQ ONCE ONE Stop: 10/22/17 09:13 Pantoprazole Sodium 80 mg/ (Sodium Chloride) 100 mls @ 10 mls/hr IVPB Q10H VALERIA PRN Reason: 8 MG/HR Last Admin: 10/22/17 05:50 Dose: 10 mls/hr Iron Sucrose 100 mg/ Sodium (Chloride) 100 mls @ 200 mls/hr IVPB ONCE ONE Stop: 10/22/17 09:41 Morphine Sulfate (Morphine Sulfate) 2 mg IVPUSH Q3H PRN PRN Reason: PAIN LEVEL 1-5 Last Admin: 10/22/17 09:23 Dose: 2 mg Mupirocin (Bactroban Ointment (For Decolonization) -) 1 applic NS BID VALERIA Stop: 10/25/17 21:59 Last Admin: 10/21/17 22:03 Dose: 1 applic ASSESSMENT AND PLAN: GI Bleed Anemia ESRD on HD Hyperkalemia improved Lactic Acidosis resolved CAD s/p recent CABG HTN Hyperlipidemia DM - monitor H/H - transfuse as needed - protonix - for endoscopy - O2 to keep SpO2 >90% - mechanical DVT prophylaxis - can monitor on floor
--- NOTE | 2017-10-22 11:02 | PN ---
Progress Note (short form) - Note Progress Note: No bms, overnight, Hgb 9 g/dl. C/o chest tenderness @ scar. No dysphagia, odynophagia. VS normal. Cardiology evaluation noted. Plan EGD this AM. Pt aware. Problem List - Problems (1) Symptomatic anemia Code(s): D64.9 - ANEMIA, UNSPECIFIED (2) Anemia due to gastrointestinal blood loss Code(s): D50.0 - IRON DEFICIENCY ANEMIA SECONDARY TO BLOOD LOSS (CHRONIC)
--- NOTE | 2017-10-22 11:59 | PN ---
Progress Note, Physician Chief Complaint: events noted has pain at sternal surgical site no SOB wants to eat - Current Medication List Current Medications: Active Medications Chlorhexidine Gluconate (Hibiclens For Decolonization -) 1 applic TP HS VALERIA Last Admin: 10/21/17 22:03 Dose: 1 applic Epoetin Jared (Procrit -) 20,000 unit SQ ONCE ONE Stop: 10/23/17 09:01 Pantoprazole Sodium 80 mg/ (Sodium Chloride) 100 mls @ 10 mls/hr IVPB Q10H VALERIA PRN Reason: 8 MG/HR Last Admin: 10/22/17 05:50 Dose: 10 mls/hr Iron Sucrose 100 mg/ Sodium (Chloride) 100 mls @ 200 mls/hr IVPB ONCE ONE Stop: 10/23/17 10:29 Morphine Sulfate (Morphine Sulfate) 2 mg IVPUSH Q3H PRN PRN Reason: PAIN LEVEL 1-5 Last Admin: 10/22/17 09:23 Dose: 2 mg Mupirocin (Bactroban Ointment (For Decolonization) -) 1 applic NS BID VALERIA Stop: 10/25/17 21:59 Last Admin: 10/21/17 22:03 Dose: 1 applic - Objective Vital Signs: Vital Signs Temperature 98 F 10/22/17 10:00 Pulse Rate 74 10/22/17 11:25 Respiratory Rate 16 10/22/17 11:25 Blood Pressure 115/32 10/22/17 11:25 O2 Sat by Pulse Oximetry (%) 98 10/22/17 09:00 Constitutional: Yes: No Distress Cardiovascular: Yes: Regular Rate and Rhythm, Murmur Respiratory: Yes: Diminished Gastrointestinal: Yes: Normal Bowel Sounds, Soft, Abdomen, Obese, Tenderness, Epigastrium Edema: No Labs: CBC, BMP 10/22/17 08:45 10/22/17 08:45 INR, PTT INR 1.27 (0.82-1.09) H 10/21/17 08:50 Problem List - Problems (1) Anemia Code(s): D64.9 - ANEMIA, UNSPECIFIED (2) Anemia due to gastrointestinal blood loss Code(s): D50.0 - IRON DEFICIENCY ANEMIA SECONDARY TO BLOOD LOSS (CHRONIC) (3) ESRD (end stage renal disease) Code(s): N18.6 - END STAGE RENAL DISEASE Assessment/Plan PLAN Recent CABG scar pain HCT better no active bleeding keep NPO for EGD today cleared by Cardiology for the same continue with protonix drip Morphine iv for pain
[2017-10-22] MEDS ORDERED: PROPOFOL 20 ML ONE ×2 (13:56)
--- NOTE | 2017-10-22 15:10 | PN ---
Progress Note, Physician History of Present Illness: Atypical reproducible chest wall pain, denies dyspnea. - Current Medication List Current Medications: Active Medications Chlorhexidine Gluconate (Hibiclens For Decolonization -) 1 applic TP HS VALERIA Last Admin: 10/21/17 22:03 Dose: 1 applic Epoetin Jared (Procrit -) 20,000 unit SQ ONCE ONE Stop: 10/23/17 09:01 Pantoprazole Sodium 80 mg/ (Sodium Chloride) 100 mls @ 10 mls/hr IVPB Q10H VALERIA PRN Reason: 8 MG/HR Last Admin: 10/22/17 05:50 Dose: 10 mls/hr Iron Sucrose 100 mg/ Sodium (Chloride) 100 mls @ 200 mls/hr IVPB ONCE ONE Stop: 10/23/17 10:29 Morphine Sulfate (Morphine Sulfate) 2 mg IVPUSH Q3H PRN PRN Reason: PAIN LEVEL 1-5 Last Admin: 10/22/17 09:23 Dose: 2 mg Mupirocin (Bactroban Ointment (For Decolonization) -) 1 applic NS BID VALERIA Stop: 10/25/17 21:59 Last Admin: 10/21/17 22:03 Dose: 1 applic - Objective Vital Signs: Vital Signs Temperature 98.3 F 10/22/17 13:55 Pulse Rate 76 10/22/17 13:55 Respiratory Rate 16 10/22/17 13:55 Blood Pressure 110/38 10/22/17 13:55 O2 Sat by Pulse Oximetry (%) 98 10/22/17 09:00 Constitutional: Yes: No Distress, Calm Neck: Yes: Supple Cardiovascular: Yes: Regular Rate and Rhythm, Varicosities Respiratory: Yes: Diminished Gastrointestinal: Yes: Soft, Hypoactive Bowel Sounds Edema: No Labs: CBC, BMP 10/22/17 08:45 10/22/17 08:45 INR, PTT INR 1.27 (0.82-1.09) H 10/21/17 08:50 - ....Imaging Chest X-ray: Report Reviewed (NAD) Problem List - Problems (1) S/P CABG (coronary artery bypass graft) Code(s): Z95.1 - PRESENCE OF AORTOCORONARY BYPASS GRAFT (2) Anemia due to gastrointestinal blood loss Code(s): D50.0 - IRON DEFICIENCY ANEMIA SECONDARY TO BLOOD LOSS (CHRONIC) (3) Symptomatic anemia Code(s): D64.9 - ANEMIA, UNSPECIFIED (4) Upper GI bleed Code(s): K92.2 - GASTROINTESTINAL HEMORRHAGE, UNSPECIFIED (5) Diabetes Code(s): E11.9 - TYPE 2 DIABETES MELLITUS WITHOUT COMPLICATIONS Qualifiers: Diabetes mellitus type: type 2 Diabetes mellitus complication status: with unspecified complications (6) ESRD (end stage renal disease) on dialysis Code(s): N18.6 - END STAGE RENAL DISEASE; Z99.2 - DEPENDENCE ON RENAL DIALYSIS (7) HTN (hypertension) Code(s): I10 - ESSENTIAL (PRIMARY) HYPERTENSION Qualifiers: Hypertension type: essential hypertension Qualified Code(s): I10 - Essential (primary) hypertension Assessment/Plan 1. GI bleed->PUD 2. Sinus tachycardia due to above with profound anemia resolved 3. Coronary artery disease s/p recent CABG, angina pectoris 4. Hypertension 5. Hypercholesterolemia 6. ESRD on HD, history of AV graft failure history of thrombectomy 7. 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 Transfuse PRBC and follow CBC 2. Resume Lipitor 10 qhs, Toprol XL 25 qd, losartan 25 qd as hemodynamics tolerate, resume ASA 81 qd and Xarelto 15 qpm once hemostasis assured 3. EGD results noted, oral protonix, mech DVT prophylaxis 4. Renal input noted. HD as per renal
--- NOTE | 2017-10-22 15:28 | PROC ---
Endoscopy Procedure Endoscopy procedure completed. Please see scanned procedure report. Multiple, superficial, non-bleeding, white-based, ulcers ranging from 5 mm to 30 mm w/o stigmata of impending, or recent bleeding were found in the stomach. Moderate gastritis was noted. Esophagus, including GEJ, as well as proximal duodenum appeared normal. Ulcers and gastritis extensively biopsied. Recommend: renal diet, PPI po BID, Carafate would help with ulcers healing however may not be appropriate in renal insufficiency. Will get nephrology input on carafate qid x 2 weeks. Follow biopsies
[2017-10-22] MEDS: MUPIROCIN 2% TOPICAL OINTMENT FOR DECOLONIZATION NS SCH (16:58)
[2017-10-22] MEDS: metoPROLOL SUCCINATE 25 MG TAB.SR.24H (FP) PO SCH (17:01)
[2017-10-22] MEDS ORDERED: IRON SUCROSE INJECTION 100 MG in SODIUM CHLORIDE 95 ML IVPB ONE (20:12)
[2017-10-22] MEDS ORDERED: CHLORHEXIDINE GLUCONATE 4% CLEANSER FOR DECOLONIZATION TP SCH (22:00)
[2017-10-22] MEDS ORDERED: MUPIROCIN 2% TOPICAL OINTMENT FOR DECOLONIZATION NS SCH (22:00)
[2017-10-22] MEDS: PANTOPRAZOLE 40 MG TABLET (FP) PO SCH (22:20)
[2017-10-22] MEDS: ATORVASTATIN CA 10 MG TABLET (FP) PO SCH (22:20)
[2017-10-22] MEDS: INSULIN SLIDING SCALE (NOVOLOG) 1 VIAL SQ SCH (23:18)
[2017-10-23 00:08] LABS: HBSAG SCREEN Negative (Negative); HEP A AB, IGM Negative (Negative); HEP B CORE AB, TOT Negative (Negative)
[2017-10-23] MEDS: morphine SULFATE 4 MG/ML VIAL IVPUSH PRN ×3 (04:40→13:26)
[2017-10-23] MEDS: INSULIN SLIDING SCALE (NOVOLOG) 1 VIAL SQ SCH ×4 (06:19→21:19)
[2017-10-23] MEDS ORDERED: EPOETIN ALFA 20,000 UNIT/1 ML VIAL SQ ONE (09:00)
[2017-10-23] MEDS ORDERED: IRON SUCROSE INJECTION 100 MG in SODIUM CHLORIDE 95 ML IVPB ONE (10:00)
[2017-10-23] MEDS: PANTOPRAZOLE 40 MG TABLET (FP) PO SCH ×2 (10:01→21:15)
[2017-10-23] MEDS: metoPROLOL SUCCINATE 25 MG TAB.SR.24H (FP) PO SCH (10:02)
--- NOTE | 2017-10-23 10:16 | PN ---
Progress Note (short form) - Note Progress Note: No occult bleeding overnight. No SOB. No acute events overnight. Intake & Output 10/20/17 10/21/17 10/22/17 10/23/17 23:59 23:59 23:59 23:59 Intake Total 730 1080 490 50 Balance 730 1080 490 50 Weight 207 lb 8 oz 207 lb 204 lb 9 oz Last Vital Signs Temp Pulse Resp BP Pulse Ox 97.6 F 67 18 114/52 99 10/23/17 06:00 10/23/17 06:00 10/23/17 06:00 10/23/17 06:00 10/22/17 21:00 Active Medications Atorvastatin Calcium (Lipitor -) 10 mg PO HS [facility] Last Admin: 10/22/17 22:20 Dose: 10 mg Epoetin Jared (Procrit -) 20,000 unit SQ ONCE ONE Stop: 10/22/17 20:13 Iron Sucrose 100 mg/ Sodium (Chloride) 100 mls @ 200 mls/hr IVPB ONCE ONE Stop: 10/22/17 21:29 Insulin Aspart (Novolog Vial Sliding Scale -) 1 vial SQ ACHS VALERIA PRN Reason: Protocol Last Admin: 10/23/17 06:19 Dose: 2 units Metoprolol Succinate (Toprol Xl -) 25 mg PO DAILY [facility] Last Admin: 10/23/17 10:02 Dose: 25 mg Morphine Sulfate (Morphine Sulfate) 2 mg IVPUSH Q3H PRN PRN Reason: PAIN LEVEL 1-5 Last Admin: 10/23/17 08:29 Dose: 2 mg Pantoprazole Sodium (Protonix -) 40 mg PO BID [facility] Last Admin: 10/23/17 10:01 Dose: 40 mg Gen: NAD at rest Heart: RRR Lung: decreased breath sounds at the bases Abd: soft, nontender Ext: no edema Laboratory Results - last 24 hr 10/20/17 10/22/17 10/22/17 23:50 08:45 22:19 WBC 6.3 RBC 2.98 L Hgb 8.8 L Hct 26.0 L MCV 87.1 MCH 29.4 MCHC 33.7 RDW 17.8 H Plt Count 196 MPV 7.8 Neutrophils % 63.2 Lymphocytes % 23.5 Monocytes % 10.8 H Eosinophils % 1.7 Basophils % 0.8 POC Glucometer 207 Hep A IgM Ab Confirm Negative Hepatitis A Ab Total Positive H Hep Bs Antigen Negative Hep Bs Antibody Reactive Hep B Core Total Ab Negative ASSESSMENT AND PLAN: GI Bleed Anemia ESRD on HD Hyperkalemia improved Lactic Acidosis resolved CAD s/p recent CABG HTN Hyperlipidemia DM - monitor H/H - Normal transfusion threshold - PPI - O2 to keep SpO2 >90% - mechanical DVT prophylaxis Dr Crabtree
--- NOTE | 2017-10-23 10:55 | PN ---
Progress Note, Physician History of Present Illness: Atypical reproducible chest wall pain, denies dyspnea. - Current Medication List Current Medications: Active Medications Atorvastatin Calcium (Lipitor -) 10 mg PO HS [facility] Last Admin: 10/22/17 22:20 Dose: 10 mg Epoetin Jared (Procrit -) 20,000 unit SQ ONCE ONE Stop: 10/22/17 20:13 Iron Sucrose 100 mg/ Sodium (Chloride) 100 mls @ 200 mls/hr IVPB ONCE ONE Stop: 10/22/17 21:29 Insulin Aspart (Novolog Vial Sliding Scale -) 1 vial SQ ACHS VALERIA PRN Reason: Protocol Last Admin: 10/23/17 06:19 Dose: 2 units Metoprolol Succinate (Toprol Xl -) 25 mg PO DAILY [facility] Last Admin: 10/23/17 10:02 Dose: 25 mg Morphine Sulfate (Morphine Sulfate) 2 mg IVPUSH Q3H PRN PRN Reason: PAIN LEVEL 1-5 Last Admin: 10/23/17 08:29 Dose: 2 mg Pantoprazole Sodium (Protonix -) 40 mg PO BID [facility] Last Admin: 10/23/17 10:01 Dose: 40 mg - Objective Vital Signs: Vital Signs Temperature 97.6 F 10/23/17 06:00 Pulse Rate 67 10/23/17 06:00 Respiratory Rate 18 10/23/17 06:00 Blood Pressure 114/52 10/23/17 06:00 O2 Sat by Pulse Oximetry (%) 99 10/22/17 21:00 Constitutional: Yes: No Distress, Calm Neck: Yes: Supple Cardiovascular: Yes: Regular Rate and Rhythm Respiratory: Yes: Regular, CTA Bilaterally Gastrointestinal: Yes: Normal Bowel Sounds, Soft Edema: No Labs: CBC, BMP 10/22/17 08:45 10/22/17 08:45 INR, PTT INR 1.27 (0.82-1.09) H 10/21/17 08:50 Problem List - Problems (1) S/P CABG (coronary artery bypass graft) Code(s): Z95.1 - PRESENCE OF AORTOCORONARY BYPASS GRAFT (2) Anemia due to gastrointestinal blood loss Code(s): D50.0 - IRON DEFICIENCY ANEMIA SECONDARY TO BLOOD LOSS (CHRONIC) (3) Symptomatic anemia Code(s): D64.9 - ANEMIA, UNSPECIFIED (4) Upper GI bleed Code(s): K92.2 - GASTROINTESTINAL HEMORRHAGE, UNSPECIFIED (5) Diabetes Code(s): E11.9 - TYPE 2 DIABETES MELLITUS WITHOUT COMPLICATIONS Qualifiers: Diabetes mellitus type: type 2 Diabetes mellitus complication status: with unspecified complications (6) ESRD (end stage renal disease) on dialysis Code(s): N18.6 - END STAGE RENAL DISEASE; Z99.2 - DEPENDENCE ON RENAL DIALYSIS (7) HTN (hypertension) Code(s): I10 - ESSENTIAL (PRIMARY) HYPERTENSION Qualifiers: Hypertension type: essential hypertension Qualified Code(s): I10 - Essential (primary) hypertension Assessment/Plan 1. GI bleed->PUD 2. Sinus tachycardia due to above with profound anemia resolved 3. Coronary artery disease s/p recent CABG, angina pectoris 4. Hypertension 5. Hypercholesterolemia 6. ESRD on HD, history of AV graft failure history of thrombectomy 7. 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 Transfuse PRBC and follow CBC 2. Resume Lipitor 10 qhs, Toprol XL 25 qd, losartan 25 qd as hemodynamics tolerate, resume ASA 81 qd and Xarelto 15 qpm once hemostasis assured 3. EGD results noted, oral protonix, mech DVT prophylaxis 4. Renal input noted. HD as per renal
[2017-10-23] MEDS ORDERED: INSULIN (NOVOLOG) ASPART 100 UNITS/ML 10ML VIAL ONE ×2 (11:06→18:21)
--- NOTE | 2017-10-23 11:06 | PN ---
Progress Note, Physician Chief Complaint: has pain in abdomen no nausea tolerated diet - Current Medication List Current Medications: Active Medications Atorvastatin Calcium (Lipitor -) 10 mg PO HS [facility] Last Admin: 10/22/17 22:20 Dose: 10 mg Epoetin Jared (Procrit -) 20,000 unit SQ ONCE ONE Stop: 10/22/17 20:13 Iron Sucrose 100 mg/ Sodium (Chloride) 100 mls @ 200 mls/hr IVPB ONCE ONE Stop: 10/22/17 21:29 Insulin Aspart (Novolog Vial Sliding Scale -) 1 vial SQ ACHS VALERIA PRN Reason: Protocol Last Admin: 10/23/17 06:19 Dose: 2 units Metoprolol Succinate (Toprol Xl -) 25 mg PO DAILY [facility] Last Admin: 10/23/17 10:02 Dose: 25 mg Morphine Sulfate (Morphine Sulfate) 2 mg IVPUSH Q3H PRN PRN Reason: PAIN LEVEL 1-5 Last Admin: 10/23/17 08:29 Dose: 2 mg Pantoprazole Sodium (Protonix -) 40 mg PO BID [facility] Last Admin: 10/23/17 10:01 Dose: 40 mg - Objective Vital Signs: Vital Signs Temperature 97.6 F 10/23/17 06:00 Pulse Rate 67 10/23/17 06:00 Respiratory Rate 18 10/23/17 06:00 Blood Pressure 114/52 10/23/17 06:00 O2 Sat by Pulse Oximetry (%) 99 10/22/17 21:00 Constitutional: Yes: No Distress, Calm Cardiovascular: Yes: Regular Rate and Rhythm Respiratory: Yes: Diminished Gastrointestinal: Yes: Normal Bowel Sounds, Soft, Abdomen, Obese, Tenderness, Epigastrium Edema: No Labs: CBC, BMP 10/22/17 08:45 10/22/17 08:45 INR, PTT INR 1.27 (0.82-1.09) H 10/21/17 08:50 Problem List - Problems (1) Anemia Code(s): D64.9 - ANEMIA, UNSPECIFIED (2) Anemia due to gastrointestinal blood loss Code(s): D50.0 - IRON DEFICIENCY ANEMIA SECONDARY TO BLOOD LOSS (CHRONIC) (3) ESRD (end stage renal disease) Code(s): N18.6 - END STAGE RENAL DISEASE Assessment/Plan PLAN Recent CABG scar pain transfuse PRN no active bleeding EGD results noted spoke with DR Lloyd-- ok to start carafate Protonix BID continue with meds
[2017-10-23] MEDS: SUCRALFATE 1 GM/10 ML UNIT DOSE CUPS PO SCH ×3 (13:27→21:14)
[2017-10-23] MEDS: PANTOPRAZOLE SODIUM 80 MG in SODIUM CHLORIDE 100 ML IVPB SCH (14:47)
[2017-10-23 14:59] LABS: BASO % 0.7 % (0-2.0); EOS % 2.3 % (0-4.5); HEMATOCRIT 24.8 % (35.4-49); HEMOGLOBIN 8.5 GM/dL (11.7-16.9); LYMPH % 19.4 % (8-40); MCH 30.1 pg (25.7-33.7); MCHC 34.4 g/dl (32.0-35.9); MEAN CELL VOLUME 87.6 fl (80-96); MEAN PLT VOLUME 8.3 fl (7.5-11.1); NEUT % 66.6 % (42.8-82.8); PLATELET COUNT 189 K/MM3 (134-434); RBC 2.83 M/mm3 (4.00-5.60); RDW 17.5 % (11.9-15.9); WHITE BLOOD COUNT 5.9 K/mm3 (4.0-10.0)
[2017-10-23 15:29] LABS: ALBUMIN 2.8 g/dl (3.4-5.0); ALK PHOS 225 U/L (45-117); ANION GAP 11 (8-16); BILIRUBIN,TOTAL 0.4 mg/dL (0.2-1.0); BLOOD UREA NITROGEN 61 mg/dL (7-18); CALCIUM 7.5 mg/dL (8.5-10.1); CHLORIDE 97 mmol/L (98-107); CO2 28 mmol/L (21-32); CREATININE 6.6 mg/dL (0.7-1.3); GLUCOSE,RANDOM 184 mg/dL (74-106); MAGNESIUM 2.1 mg/dL (1.8-2.4); PHOSPHOROUS 5.1 mg/dL (2.5-4.9); POTASSIUM 4.8 mmol/L (3.5-5.1); SGOT/AST 13 U/L (15-37); SGPT/ALT 24 U/L (12-78); SODIUM 136 mmol/L (136-145); TOT PROT 6.7 g/dl (6.4-8.2)
[2017-10-23] MEDS: EPOETIN ALFA 20,000 UNIT/1 ML VIAL SQ ONE ×2 (15:50→18:31)
[2017-10-23] MEDS: IRON SUCROSE INJECTION 100 MG in SODIUM CHLORIDE 95 ML IVPB ONE ×2 (15:50→18:31)
[2017-10-23] MEDS: oxyCODONE HCL 5 MG TABLET PO PRN (18:27)
[2017-10-23] MEDS: ATORVASTATIN CA 10 MG TABLET (FP) PO SCH (21:15)
[2017-10-23] MEDS: DOCUSATE SODIUM 100 MG CAPSULE (FP) PO SCH (21:15)
[2017-10-24] MEDS: oxyCODONE HCL 5 MG TABLET PO PRN ×2 (05:52→11:15)
[2017-10-24] MEDS: INSULIN SLIDING SCALE (NOVOLOG) 1 VIAL SQ SCH ×2 (06:02→11:15)
[2017-10-24] MEDS: metoPROLOL SUCCINATE 25 MG TAB.SR.24H (FP) PO SCH (09:17)
[2017-10-24] MEDS: SUCRALFATE 1 GM/10 ML UNIT DOSE CUPS PO SCH (09:17)
[2017-10-24] MEDS: DOCUSATE SODIUM 100 MG CAPSULE (FP) PO SCH (09:17)
[2017-10-24] MEDS: PANTOPRAZOLE 40 MG TABLET (FP) PO SCH (09:18)
--- NOTE | 2017-10-24 09:33 | PN ---
Progress Note (short form) - Note Progress Note: RENAL ADMITTED WITH GI BLEED GIVEN 3 U PRBCS hb 8.5 got hd thurs 3 kg removed chest clear abd soft ext 1+ edema rt arm hero alfonso labs noted plan hd sat send cbc at hd if hb lower transfuse at hd will give epo and venofer at hd dc O2 walk
--- NOTE | 2017-10-24 09:41 | DS ---
Physical Examination Vital Signs: Vital Signs Temperature 98.5 F 10/24/17 05:34 Pulse Rate 77 10/24/17 05:34 Respiratory Rate 20 10/24/17 05:34 Blood Pressure 116/40 10/24/17 05:34 O2 Sat by Pulse Oximetry (%) 98 10/23/17 21:00 Findings/Remarks: feels well. wants to go home says feels better chart reviewed Constitutional: Yes: No Distress, Obese Neck: Yes: Supple Cardiovascular: Yes: Regular Rate and Rhythm Respiratory: Yes: Diminished Gastrointestinal: Yes: Soft Edema: No Neurological: Yes: Alert Labs: CBC, BMP 10/23/17 14:30 10/23/17 14:30 Discharge Summary Reason For Visit: ANEMIA/UPPER GI HEMORRHASGE/HYPERKALEMIA Current Active Problems Anemia (Acute) Anemia due to gastrointestinal blood loss (Acute) Chest pain due to coronary artery disease (Acute) DVT prophylaxis (Acute) ESRD (end stage renal disease) (Acute) Hyperkalemia (Acute) S/P CABG (coronary artery bypass graft) (Acute) Symptomatic anemia (Acute) Tachycardia (Acute) Upper GI bleed (Acute) Upper GI bleed (Acute) Hospital Course: pt admitted for one episode of hematesis underwent egd-- pud started on sucralfate now stable will d/c today. pt to follow with his pmd and specialists as advised-- gi/ cardiology. Pt in agreement Meds reconcilled Discussed with Dr. Lloyd also. Pt in agreement time spend 35 min in examining/ documenting and coordating care. Condition: Stable - Instructions Referrals: Singh Sandra MD [Primary Care Provider] - Disposition: HOME - Home Medications Comprehensive Discharge Medication List: Ambulatory Orders Esomeprazole Mag Trihydrate [Nexium] 40 mg PO DAILY 10/10/14 Amlodipine Besylate [Norvasc -] 10 mg PO DAILY tablet 06/14/16 Atorvastatin Ca [Lipitor] 10 mg PO HS #30 tablet 06/14/16 Insulin Glargine,Hum.rec.anlog [Lantus (10mL VIAL) -] 30 units SQ HS 07/05/16 Albuterol 0.083% Nebulizer Faviola [Ventolin 0.083% Nebulizer Soln -] 1 amp NEB Q4H PRN #0 amp 02/11/17 Benzonatate 200 mg PO DAILY 04/09/17 Calcium Acetate 667 mg PO DAILY 04/09/17 Folic Acid/Vit B Complex and C [Pidead-Kelly Tablet] 0.8 mg PO DAILY 04/09/17 Furosemide [Lasix] 80 mg PO DAILY 04/09/17 Insulin Glargine,Hum.rec.anlog [Lantus (10mL VIAL) -] 30 units SQ AM 04/09/17 Labetalol HCl [Normodyne -] 200 mg PO BID 04/09/17 Metoprolol Succinate [Toprol XL -] 25 mg PO DAILY 04/09/17 Montelukast Na [Singulair -] 10 mg PO DAILY 04/09/17 Sevelamer Carbonate [Renvela -] 800 mg PO TID 04/09/17 Acetaminophen [Tylenol .Regular Strength -] 650 mg PO Q4H PRN #0 tablet Lidocaine Patch Removal [Lidoderm Patch Removal] 1 each MC DAILY@2200 each Losartan Potassium [Cozaar -] 50 mg PO DAILY tablet 04/21/17 Metoclopramide HCl [Reglan -] 5 mg PO TIDAC tablet 04/21/17 Mupirocin Ointment [Bactroban 2% Ointment -] 1 applic TP BID applic 04/21/17 Oxycodone HCl 10 mg PO Q8H #20 tablet MDD 3 04/21/17 Rivaroxaban [Xarelto -] 15 mg PO DAILY tablet 04/21/17 Zolpidem Tartrate [Ambien] 5 mg PO HS PRN #30 tablet MDD 1 04/21/17 Pantoprazole Sodium [Protonix -] 40 mg PO BID 30 Days #60 tablet.ec 10/24/17 Sucralfate Oral Suspension [Carafate Oral Suspension -] 1 gm PO QID 30 Days # 120 ml 10/24/17
--- NOTE | 2017-10-24 10:15 | PATH ---
Surgical Pathology Report Patient Name: [facility]. Rec. #: [id number] /Age/Gender: 1960 (Age: 57) / M Account: [id number] Location: [facility] MED/SURG Taken: 10/22/2017 Received: 10/22/2017 Reported: 10/24/2017 Physicians: Shira Meade M.D. Specimen(s) Received A: BX DUODENUM B: BX ANTRUM ULCER C: BX BODY D: BX CARDIA E: BX CARDIA #2 Clinical History Upper GI bleed Postoperative diagnosis: Gastric ulcer, gastritis Final Diagnosis A. DUODENUM, SECOND PORTION , BIOPSY: DUODENAL MUCOSA WITHOUT SIGNIFICANT PATHOLOGIC FINDINGS. B. STOMACH, ANTRUM, ULCER, BIOPSY: GASTRIC ANTRAL MUCOSA WITH MODERATE TO SEVERE CHRONIC ACTIVE GASTRITIS AND FOCAL ULCERATION. IMMUNOHISTOCHEMICAL STAIN FOR H. PYLORI IS NEGATIVE. C. STOMACH, BODY, BIOPSY: GASTRIC BODY MUCOSA WITH MODERATE CHRONIC ACTIVE GASTRITIS. IMMUNOHISTOCHEMICAL STAIN FOR H. PYLORI IS NEGATIVE. D. STOMACH, CARDIA, BIOPSY: GASTRIC CARDIAC TYPE MUCOSA WITH MILD CHRONIC ACTIVE GASTRITIS. IMMUNOHISTOCHEMICAL STAIN FOR H. PYLORI IS NEGATIVE. E. STOMACH, CARDIA #2, BIOPSY: ACUTE PURULENT EXUDATE CONSISTENT WITH ULCER BASE. IMMUNOHISTOCHEMICAL STAIN FOR H. PYLORI IS NEGATIVE. Electronically Signed Lian Hamilton M.D. Gross Description A. Received in formalin, labeled "biopsy second portion of duodenum" are 2 alcala, irregular portions of soft tissue measuring 0.1 and 0.4 cm. in greatest dimension. The specimens are submitted in toto in one cassette. B. Received in formalin, labeled "biopsy antral ulcer" are 2 alcala, irregular portions of soft tissue averaging 0.4 cm. in greatest dimension. The specimens are submitted in toto in one cassette. C. Received in formalin, labeled "biopsy body" are 3 alcala, irregular portions of soft tissue averaging 0.1 cm. in greatest dimension. The specimens are submitted in toto in one cassette. D. Received in formalin, labeled "biopsy cardia" is a alcala, irregular portion of soft tissue measuring 0.4 cm. in greatest dimension. The specimen is submitted in toto in one cassette. E. Received in formalin, labeled "biopsy cardia #2" are 4 alcala, irregular portions of soft tissue ranging from 0.1-0.3 cm. in greatest dimension. The specimens are submitted in toto in one cassette. 10/22/2017 saudi10/22/2017
[2017-10-24 10:18] VITALS: BP 156/73; PULSE 74; TEMP 97.7
[2017-10-24] MEDS ORDERED: INSULIN (NOVOLOG) ASPART 100 UNITS/ML 10ML VIAL ONE (11:11)
[2017-10-25] MEDS ORDERED: IRON SUCROSE INJECTION 100 MG in SODIUM CHLORIDE 95 ML IVPB ONE (09:37)
[2017-10-25] MEDS ORDERED: EPOETIN ALFA 20,000 UNIT/1 ML VIAL SQ ONE (09:38)
== END 2017-10-24 12:01 | disposition home or self-care (01) | DRG 377 ==
LOC: JER 15:58 → JICU 21:13 → J7W 10-22 20:25
PROVIDERS: ADMIT Internal Medicine; ATTEND Internal Medicine
PROC: 30233N1 Transfusion of Nonautologous Red Blood Cells into Peripheral Vein, Percutaneous Approach (ICD-10-PCS; 2017-10-20)
PROC: 5A1D70Z Performance of Urinary Filtration, Intermittent, Less than 6 Hours Per Day (ICD-10-PCS; 2017-10-20)
PROC: 0DB68ZX Excision of Stomach, Via Natural or Artificial Opening Endoscopic, Diagnostic (ICD-10-PCS; 2017-10-22)
PROC: 0DB98ZX Excision of Duodenum, Via Natural or Artificial Opening Endoscopic, Diagnostic (ICD-10-PCS; principal; 2017-10-22 13:45)
DX: K92.2 Gastrointestinal hemorrhage, unspecified (principal); N18.6 End stage renal disease; I12.0 Hypertensive chronic kidney disease with stage 5 chronic kidney disease or end stage renal disease; E87.2 Acidosis; Z95.1 Presence of aortocoronary bypass graft; Z99.2 Dependence on renal dialysis; E87.5 Hyperkalemia; E78.5 Hyperlipidemia, unspecified; I25.10 Atherosclerotic heart disease of native coronary artery without angina pectoris; E11.22 Type 2 diabetes mellitus with diabetic chronic kidney disease; Z79.4 Long term (current) use of insulin; D63.1 Anemia in chronic kidney disease; I95.9 Hypotension, unspecified; E11.65 Type 2 diabetes mellitus with hyperglycemia; E66.9 Obesity, unspecified; E11.40 Type 2 diabetes mellitus with diabetic neuropathy, unspecified; R00.0 Tachycardia, unspecified; R07.9 Chest pain, unspecified; D50.0 Iron deficiency anemia secondary to blood loss (chronic); K29.60 Other gastritis without bleeding
CPT/HCPCS: 36415; 36430; 36600; 71045-TC-FY; 80053; 82272; 82375; 82550; 82553; 82565; 82803; 82962; 83050; 83605; 83735; 83880; 84100; 84132; 84484; 85025; 85027; 85610; 85730; 86704; 86706; 86708; 86850; 86900; 86901; 86922; 87040; 87340; 88305-TC; 93005; 93010; 93970-TC; 99285-25; J0885; J1756; P9038; P9058

== ENCOUNTER 2017-11-04 11:49 | Observation (INO) | payer OTHER ==
--- NOTE | 2017-11-04 12:46 | PDOC ---
History of Present Illness - General Chief Complaint: Dialysis Shunt Problem Stated Complaint: DIALYSIS SHUNT PROBLEM Time Seen by Provider: 11/04/17 12:37 History Source: Patient Exam Limitations: No Limitations - History of Present Illness Initial Comments: 11/04/17 13:41 Patient is a 57-year-old male with past medical history of end-stage renal disease on dialysis, who presents to the emergency department today stating that his right AV shunt is clotted. He states that he went to dialysis today and they were unable to access the shunt. He states that Dr. Gonzalez is a vascular surgeon. He "wants to have his shunt unclotted so he can be discharged. " Patient is currently afebrile, denies fevers, chills, palpitations, chest pain , shortness of breath, difficulty breathing. Past History - Travel Traveled outside of the country in the last 30 days: No Close contact w/someone who was outside of country & ill: No - Past Medical History Allergies/Adverse Reactions: Allergies Allergy/AdvReac Type Severity Reaction Status Date / Time No Known Drug Allergies Allergy Verified 11/04/17 11:52 Home Medications: Ambulatory Orders Esomeprazole Mag Trihydrate [Nexium] 40 mg PO DAILY 10/10/14 Amlodipine Besylate [Norvasc -] 10 mg PO DAILY tablet 06/14/16 Atorvastatin Ca [Lipitor] 10 mg PO HS #30 tablet 06/14/16 Insulin Glargine,Hum.rec.anlog [Lantus (10mL VIAL) -] 30 units SQ HS 07/05/16 Albuterol 0.083% Nebulizer Faviola [Ventolin 0.083% Nebulizer Soln -] 1 amp NEB Q4H PRN #0 amp 08/10/16 Benzonatate 200 mg PO DAILY 04/09/17 Calcium Acetate 667 mg PO DAILY 04/09/17 Folic Acid/Vit B Complex and C [Piedad-Kelly Tablet] 0.8 mg PO DAILY 04/09/17 Furosemide [Lasix] 80 mg PO DAILY 04/09/17 Insulin Glargine,Hum.rec.anlog [Lantus (10mL VIAL) -] 30 units SQ AM 04/09/17 Labetalol HCl [Normodyne -] 200 mg PO BID 04/09/17 Metoprolol Succinate [Toprol XL -] 25 mg PO DAILY 04/09/17 Montelukast Na [Singulair -] 10 mg PO DAILY 04/09/17 Sevelamer Carbonate [Renvela -] 800 mg PO TID 04/09/17 Acetaminophen [Tylenol .Regular Strength -] 650 mg PO Q4H PRN #0 tablet Lidocaine Patch Removal [Lidoderm Patch Removal] 1 each MC DAILY@2200 each Losartan Potassium [Cozaar -] 50 mg PO DAILY tablet 04/21/17 Metoclopramide HCl [Reglan -] 5 mg PO TIDAC tablet 04/21/17 Mupirocin Ointment [Bactroban 2% Ointment -] 1 applic TP BID applic 04/21/17 Oxycodone HCl 10 mg PO Q8H #20 tablet MDD 3 04/21/17 Rivaroxaban [Xarelto -] 15 mg PO DAILY tablet 04/21/17 Zolpidem Tartrate [Ambien] 5 mg PO HS PRN #30 tablet MDD 1 04/21/17 Pantoprazole Sodium [Protonix -] 40 mg PO BID 30 Days #60 tablet.ec 10/24/17 Sucralfate Oral Suspension [Carafate Oral Suspension -] 1 gm PO QID 30 Days # 120 ml 10/24/17 Anemia: No Cardiac Disorders: Yes COPD: No DVT: No Diabetes: Yes Dialysis: Yes (TUES,THR,SAT RT ARM DIALYSIS ACCESS) GI Disorders: Yes HTN: Yes Hypercholesterolemia: Yes - Surgical History Cardiac Surgery: Yes (CABG) Orthopedic Surgery: Yes (OR debridement left foot wound) - Immunization History Immunization Up to Date: No - Suicide/Smoking/Psychosocial Hx Smoking Status: No Smoking History: Never smoked Have you smoked in the past 12 months: No Number of Cigarettes Smoked Daily: 0 Information on smoking cessation initiated: No Hx Alcohol Use: No Drug/Substance Use Hx: No Substance Use Type: None Hx Substance Use Treatment: No Review of Systems - Review of Systems Able to Perform ROS?: Yes Comments:: 11/04/17 14:43 CONSTITUTIONAL: Absent: fever, chills, diaphoresis, generalized weakness, malaise, loss of appetite HEENT: Absent: rhinorrhea, nasal congestion, throat pain, throat swelling, difficulty swallowing, mouth swelling, ear pain, eye pain, visual Changes CARDIOVASCULAR: Absent: chest pain, loss of consciousness, palpitations, irregular heart rate, peripheral edema RESPIRATORY: Absent: cough, shortness of breath, dyspnea with exertion, orthopnea, wheezing, stridor, hemoptysis GASTROINTESTINAL: Absent: abdominal pain, abdominal distension, nausea, vomiting, diarrhea, constipation, melena, hematochezia GENITOURINARY: Absent: dysuria, frequency, urgency, hesitancy, hematuria, flank pain, genital pain MUSCULOSKELETAL: Absent: myalgia, arthralgia, joint swelling SKIN: Absent: rash, itching, pallor HEMATOLOGIC/IMMUNOLOGIC: Present: Clotted R AV shunt Absent: easy bleeding, easy bruising, lymphadenopathy, frequent infections ENDOCRINE: Absent: unexplained weight gain, unexplained weight loss, heat intolerance, cold intolerance NEUROLOGIC: Absent: headache, focal weakness or paresthesias, dizziness, unsteady gait, seizure, mental status changes, bladder or bowel incontinence PSYCHIATRIC: Absent: anxiety, depression, suicidal or homicidal ideation, hallucinations. Is the patient limited Tongan proficient: No *Physical Exam - Vital Signs Last Vital Signs Temp Pulse Resp BP Pulse Ox 97.7 F 71 18 134/84 100 11/04/17 11:53 11/04/17 11:53 11/04/17 11:53 11/04/17 11:53 11/04/17 11:53 - Physical Exam Comments: 11/04/17 17:44 GENERAL: Well developed, well nourished. Awake and alert. No acute distress. HEENT: Normocephalic, atraumatic. PERRLA, EOMI. No conjunctival pallor. Sclera are non- icteric. Moist mucous membranes. NECK: Supple. Full ROM. No JVD. Carotid pulses 2+ and symmetric, without bruits. No thyromegaly. No lymphadenopathy. CARDIOVASCULAR: Regular rate and rhythm. No murmurs, rubs, or gallops. Distal pulses are 2+ and symmetric. PULMONARY: No evidence of respiratory distress. Lungs clear to auscultation bilaterally. No wheezing, rales or rhonchi. ABDOMINAL: Soft. Non-tender. Non-distended. No rebound or guarding. No organomegaly. Normoactive bowel sounds. MUSCULOSKELETAL Normal range of motion at all joints. No bony deformities or tenderness. No CVA tenderness. EXTREMITIES: R AV shunt with no thrill, no bruit on auscultation. No cyanosis. No clubbing. No edema. No calf tenderness. SKIN: Warm and dry. Normal capillary refill. No rashes. No jaundice. NEUROLOGICAL: Alert, awake, appropriate. Cranial nerves 2-12 intact. No deficits to light touch and temperature in face, upper extremities and lower extremities. No motor deficits in the in face, upper extremities and lower extremities. Normoreflexic in the upper and lower extremities. Normal speech. Toes are down- going bilaterally. Gait is normal without ataxia. PSYCHIATRIC: Cooperative. Good eye contact. Appropriate mood and affect. ED Treatment Course - LABORATORY CBC & Chemistry Diagram: 11/04/17 13:12 11/04/17 13:12 Medical Decision Making - Medical Decision Making 11/04/17 16:51 Patient is a 57-year-old male past medical history of end-stage renal disease who presents emergency department today with a suspected clotted AV shunt after it was unable to be accessed at outpatient dialysis today. Pt. was last dialyzed on Friday11/01/17. There is no palpable thrill or bruit on exam. Ultrasound of the right arm confirms clotted AV shunt. Patient's potassium currently at 6.1. Insulin, calcium, D50 given at this time. Patient with poor IV access as well. Patient evaluated by surgical PAs and refuses Shiley catheterization at this time. We'll continue to medically monitor the patient. Spoke with Dr. Gonzalez and he will take the patient to the OR tomorrow. Calls placed to Dr. Kendall at 1615 and 16:40 with no call back. Patient was admitted to [facility] at this time. Case discussed with Ramya Penaloza. Patient admitted to telemetry at this time. EKG: Rate 67 bpm, NSR. Normal intervals, normal axis. No acute ST-T wave changes. *DC/Admit/Observation/Transfer Diagnosis at time of Disposition: ESRD (end stage renal disease), Hyperkalemia Shunt malfunction Qualifiers: Encounter type: subsequent encounter Qualified Code(s): T85.618A - Breakdown ( mechanical) of other specified internal prosthetic devices, implants and grafts , initial encounter - Discharge Dispostion Condition at time of disposition: Stable Decision to Admit order: Yes - Referrals Referrals: Singh Sandra MD [Primary Care Provider] - - Patient Instructions - Post Discharge Activity
[2017-11-04 13:22] LABS: BASO % 1.2 % (0-2.0); HEMATOCRIT 32.5 % (35.4-49); HEMOGLOBIN 10.6 GM/dL (11.7-16.9); LYMPH % 23.7 % (8-40); MCH 28.6 pg (25.7-33.7); MCHC 32.5 g/dl (32.0-35.9); MEAN CELL VOLUME 88.1 fl (80-96); MEAN PLT VOLUME 8.4 fl (7.5-11.1); MONO % 10.6 % (3.8-10.2); NEUT % 61.5 % (42.8-82.8); PLATELET COUNT 202 K/MM3 (134-434); RBC 3.69 M/mm3 (4.00-5.60); RDW 17.4 % (11.9-15.9)
[2017-11-04 14:02] LABS: ALBUMIN 3.6 g/dl (3.4-5.0); ALK PHOS 256 U/L (45-117); ANION GAP 9 (8-16); BILIRUBIN,TOTAL 0.4 mg/dL (0.2-1.0); BLOOD UREA NITROGEN 73 mg/dL (7-18); CALCIUM 8.3 mg/dL (8.5-10.1); CHLORIDE 102 mmol/L (98-107); CO2 27 mmol/L (21-32); GLUCOSE,RANDOM 99 mg/dL (74-106); MAGNESIUM 2.6 mg/dL (1.8-2.4); PHOSPHOROUS 4.8 mg/dL (2.5-4.9); SGOT/AST 26 U/L (15-37); SGPT/ALT 44 U/L (12-78); SODIUM 138 mmol/L (136-145); TOT PROT 7.9 g/dl (6.4-8.2)
[2017-11-04 14:11] LABS: CREATININE 8.2 mg/dL (0.7-1.3); POTASSIUM 6.1 mmol/L (3.5-5.1)
[2017-11-04] MEDS ORDERED: CALCIUM GLUCONATE 10% - 1,000 MG/10 ML VIAL IVPB ONE (14:14)
[2017-11-04] MEDS ORDERED: DEXTROSE 50%-WATER - 25 GM/50 ML VIAL IVPUSH ONE (14:16)
[2017-11-04] MEDS ORDERED: INSULIN REGULAR HUMAN 100 UNITS/ML *VIAL IVPUSH ONE (14:16)
[2017-11-04] MEDS ORDERED: DEXTROSE 50%-WATER 25 GM/50 ML DISP.SYRIN ONE (14:30)
[2017-11-04] MEDS ORDERED: CALCIUM GLUCONATE 10% - 1,000 MG/10 ML VIAL ONE (14:30)
[2017-11-04] MEDS ORDERED: INSULIN REGULAR HUMAN 100 UNITS/ML *VIAL ONE (14:31)
[2017-11-04] MEDS ORDERED: SODIUM POLYSTYRENE SULFONATE 15 GM/60 ML BOTTLE PO ONE (16:09)
[2017-11-04] MEDS ORDERED: SODIUM POLYSTYRENE SULFONATE 15 GM/60 ML BOTTLE ONE (16:38)
--- NOTE | 2017-11-04 16:44 | PN ---
Progress Note (short form) - Note Progress Note: Vascular Surgery: Called by Dr. Gonzalez to see the patient and place a shiley today. The patient went to HD today and they were unable to dialyze him via his Graft. He has no complaints of CP/SOB/palpitations. He is refusing a shiley catheter placement for emergent HD today. His potassium level of 6.1 was explained to him but he still refused after speaking with myself and Dr. Gonzalez(via the phone). I contacted his renal doctor, he was treated with Insulin 5 units and calium gluconate is being given for his 6.1 potassium. In addition, I ordered kayexelate 30gm x1 with repeat potassium level tonight and in the am. Vital Signs Period Temp Pulse Resp BP Sys/Harris Pulse Ox Last 24 Hr 97.7 F 71 18 134/84 100 GEN: appears comfortable CV:RRR Lungs: CTA b/l anteriorly RUE: no palpable thrill or audible bruit US: clot of RUE AVG CBC, BMP 11/04/17 13:12 11/04/17 13:12 Laboratory Tests 10/21/17 08:50 INR 1.27 H A/P: 57 yo male with ESRD, awaiting kidney transplant, now with clotted Graft for HD Pt refusing shiley cath placement, risks explained to the patient. He will receive medical treatment for his elevated 6.1. Spoke with the [employer] EQUIPMENT TENDER covering his care in the ER and discussed the medical plan. He will be admitted to the hospital on the medical service to telemetry. Npo after midnight for RUE thrombectomy of his graft, OR scheduled The above care and treatment plan was discussed with Dr. Gonzalez
--- NOTE | 2017-11-04 18:41 | PN ---
Progress Note (short form) - Note Progress Note: RENAL 57 DM RETINOPATHY CAD POST CABG RECENT ADMITTED 2 WEEKS BACK WITH GI BLEED NOW BACK WITH A CLOTTED ACCESS K 6.1 REFUSED BENY Hernandez TREATED GOT KAYEXALATE D50 INSULIN CA NPO TONIGHT FOR DECLOT IN AM CONTINUE BP MEDS HOLD ARB HD ALONZO AFTER DECLOT
--- NOTE | 2017-11-04 20:59 | HP ---
CHIEF COMPLAINT: clotted AV graft PCP: Allen HISTORY OF PRESENT ILLNESS: This is a 57 year old male with a significant past medical history of ESRD dialysis TTSa presented to the ED from his dialysis center after they were unable to access his AV graft. He has no other complaints. ER course was notable for: (1) K 6.1 (2)BUN 73, Cr 8.2 Recent Travel: pt denies PAST MEDICAL HISTORY: ESRD dialysis TTSa, DM, HTN, HLD PAST SURGICAL HISTORY: CABG 08/28/17; L foot wound debridement; L upper arm AV graft Social History: Smoking: pt denies Alcohol: denies Drugs: denies Allergies No Known Drug Allergies Allergy (Verified 11/04/17 11:52) HOME MEDICATIONS: 3 Medication Instructions Recorded Amlodipine Besylate [Norvasc -] 10 mg PO DAILY tablet 06/14/16 Atorvastatin Ca [Lipitor] 10 mg PO HS #30 tablet 06/14/16 Insulin Glargine,Hum.rec.anlog 15 units SQ HS 07/05/16 [Lantus (10mL VIAL) -] Folic Acid/Vit B Complex and C 0.8 mg PO DAILY 04/09/17 [Piedad-Kelly Tablet] Metoprolol Succinate [Toprol XL -] 25 mg PO DAILY 04/09/17 Sevelamer Carbonate [Renvela -] 800 mg PO TID 04/09/17 Losartan Potassium [Cozaar -] 50 mg PO DAILY tablet 04/21/17 Oxycodone HCl 10 mg PO Q8H #20 tablet MDD 3 04/21/17 Sucralfate Oral Suspension 1 gm PO QID 30 Days #120 ml 10/24/17 [Carafate Oral Suspension -] Zolpidem Tartrate [Ambien] 10 mg PO HS PRN MDD 1 11/04/17 REVIEW OF SYSTEMS CONSTITUTIONAL: Absent: fever, chills, diaphoresis, generalized weakness, malaise, loss of appetite, weight change HEENT: Absent: rhinorrhea, nasal congestion, throat pain, throat swelling, difficulty swallowing, mouth swelling, ear pain, eye pain, visual changes CARDIOVASCULAR: Absent: chest pain, syncope, palpitations, irregular heart rate, lightheadedness , peripheral edema RESPIRATORY: Absent: cough, shortness of breath, dyspnea with exertion, orthopnea, wheezing, stridor, hemoptysis GASTROINTESTINAL: Absent: abdominal pain, abdominal distension, nausea, vomiting, diarrhea, constipation, melena, hematochezia GENITOURINARY: Absent: dysuria, frequency, urgency, hesitancy, hematuria, flank pain, genital pain MUSCULOSKELETAL: Absent: myalgia, arthralgia, joint swelling, back pain, neck pain SKIN: Absent: rash, itching, pallor HEMATOLOGIC/IMMUNOLOGIC: Absent: easy bleeding, easy bruising, lymphadenopathy, frequent infections ENDOCRINE: Absent: unexplained weight gain, unexplained weight loss, heat intolerance, cold intolerance NEUROLOGIC: Absent: headache, focal weakness or paresthesias, dizziness, unsteady gait, seizure, mental status changes, bladder or bowel incontinence PSYCHIATRIC: Absent: anxiety, depression, suicidal or homicidal ideation, hallucinations. PHYSICAL EXAMINATION Vital Signs - 24 hr 3 11/04/17 11/04/17 11:53 17:43 Temperature 97.7 F Pulse Rate 71 Pulse Rate [ 72 Apical] Respiratory 18 16 Rate Blood Pressure 134/84 Blood Pressure 187/89 [Right Arm] O2 Sat by Pulse 100 97 Oximetry (%) GENERAL: Awake, alert, and fully oriented, in no acute distress. HEAD: Normal with no signs of trauma. EYES: Pupils equal, round and reactive to light, extraocular movements intact, sclera anicteric, conjunctiva clear. No lid lag. EARS, NOSE, THROAT: Ears normal, nares patent, oropharynx clear without exudates. Moist mucous membranes. NECK: Normal range of motion, supple without lymphadenopathy, JVD, or masses. LUNGS: Breath sounds equal, clear to auscultation bilaterally. No wheezes, and no crackles. No accessory muscle use. HEART: Regular rate and rhythm, normal S1 and S2 without murmur, rub or gallop. ABDOMEN: Soft, nontender, not distended, normoactive bowel sounds, no guarding, no rebound, no masses. No hepatomegaly or splenomegaly. MUSCULOSKELETAL: Normal range of motion at all joints. No bony deformities or tenderness. No CVA tenderness. UPPER EXTREMITIES: 2+ pulses, warm, well-perfused. No cyanosis. No clubbing. No peripheral edema. L arm AV graft no bruit, no thrill LOWER EXTREMITIES: 2+ pulses, warm, well-perfused. No calf tenderness. No peripheral edema. NEUROLOGICAL: Cranial nerves II-XII intact. Normal speech. Normal gait. PSYCHIATRIC: Cooperative. Good eye contact. Appropriate mood and affect. SKIN: Warm, dry, normal turgor, no rashes or lesions noted, normal capillary refill. Laboratory Results - last 24 hr 3 11/04/17 11/04/17 13:12 13:12 WBC 6.0 RBC 3.69 L D Hgb 10.6 L D Hct 32.5 L D MCV 88.1 MCH 28.6 MCHC 32.5 RDW 17.4 H Plt Count 202 MPV 8.4 Neutrophils % 61.5 Lymphocytes % 23.7 D Monocytes % 10.6 H Eosinophils % 3.0 Basophils % 1.2 Sodium 138 Potassium 6.1 H* D Chloride 102 Carbon Dioxide 27 Anion Gap 9 BUN 73 H Creatinine 8.2 H* D Creat Clearance w eGFR 6.77 Random Glucose 99 D Calcium 8.3 L Phosphorus 4.8 Magnesium 2.6 H D Total Bilirubin 0.4 AST 26 D ALT 44 D Alkaline Phosphatase 256 H Total Protein 7.9 Albumin 3.6 D Radiology Reports L arm arterial doppler IMPRESSION: Occluded right upper arm AV graft. Feeding artery is patent. Central veins are not evaluated. Reported By: Sudarshan Crooks MD 11/04/17 1612 ECG Normal sinus rhythm Vent rate 67, QTC 443 possible left atrial enlargement left axis deviation incomplete RBBB T wave abnormality, nonspecific ASSESSMENT/PLAN: 57yM with PMH ESRD, DM, HTN, HLD presented to the ED with clotted L AV graft. L arm thrombosed AV graft - vascular consult appreciated - pt to go to OR in am - NPO after midnight Hyperkalemia secondary to ESRD - given cocktail in ED - repeat BMP pending - BMP in am - refused placement of emergent dialysis catheter despite d/w Dr. sanders via telephone HTN - Cont home meds HLD - cont lipitor DM - home lantus changed to formular levemir DVT PPX - low risk, anticipated DC after dialysis tomorrow FEN - tolerating po - bmp in am - renal diet today then NPO after MN Dispo: Pt currently requires further observation and treatment for management of his emergent condition. Visit type - Emergency Visit Emergency Visit: Yes ED Registration Date: 11/04/17 Care time: The patient presented to the Emergency Department on the above date and was hospitalized for further evaluation of their emergent condition. - New Patient This patient is new to me today: Yes Date on this admission: 11/04/17 - Critical Care Critical Care patient: No Hospitalist Screening - Colonoscopy Questionnaire Colonoscopy Questionnaire: Colonoscopy Questionnaire - Patient: 50 - 75 years old and never had a screening colonoscopy: Unknown History of colon or rectal polyps, or CA: Unknown History of IBD, Crohn's disease or UC: Unknown History of abdominal radiation therapy as a child: Unknown - Relative: 1 with colon or rectal CA, or polyps at age 60 or younger: Unknown Colon or rectal CA diagnosed at age 45 or younger: Unknown Multiple relatives with colon or rectal CA: Unknown - Outcome: Screening Result: Negative Screen
[2017-11-04] MEDS ORDERED: ZOLPIDEM TARTRATE 5 MG TABLET PO PRN (21:14)
[2017-11-04 21:41] LABS: INR 1.16 (0.82-1.09); PROTHROMBIN TIME (PATIENT) 13.1 SEC (9.7-13.0)
[2017-11-04 21:51] LABS: ANION GAP 11 (8-16); BLOOD UREA NITROGEN 78 mg/dL (7-18); CALCIUM 8.5 mg/dL (8.5-10.1); CHLORIDE 104 mmol/L (98-107); CO2 24 mmol/L (21-32); GLUCOSE,RANDOM 75 mg/dL (74-106); POTASSIUM 5.9 mmol/L (3.5-5.1); SODIUM 139 mmol/L (136-145)
[2017-11-04 21:58] LABS: CREATININE 8.5 mg/dL (0.7-1.3)
[2017-11-04] MEDS ORDERED: ATORVASTATIN CA 10 MG TABLET (FP) PO SCH (22:00)
[2017-11-04] MEDS ORDERED: INSULIN (LEVEMIR) 100 UNITS/ML UNITS SQ SCH (22:00)
[2017-11-04] MEDS ORDERED: INSULIN SLIDING SCALE (NOVOLOG) 1 VIAL SQ SCH (22:00)
[2017-11-04] MEDS ORDERED: SUCRALFATE 1 GM TABLET (FP) ONE (22:55)
[2017-11-04] MEDS ORDERED: oxyCODONE HCL 5 MG TABLET ONE (22:55)
[2017-11-04] MEDS: SUCRALFATE 1 GM/10 ML UNIT DOSE CUPS PO SCH (23:00)
[2017-11-04] MEDS: oxyCODONE HCL 5 MG TABLET PO SCH (23:00)
[2017-11-05] MEDS ORDERED: oxyCODONE HCL 5 MG TABLET ONE (06:03)
[2017-11-05] MEDS: oxyCODONE HCL 5 MG TABLET PO SCH (06:08)
[2017-11-05] MEDS ORDERED: INSULIN SLIDING SCALE (NOVOLOG) 1 VIAL SQ SCH ×3 (07:00→22:00)
[2017-11-05] MEDS ORDERED: SEVELAMER CARBONATE 800 MG TAB (FP) PO SCH ×2 (08:00→17:30)
[2017-11-05 08:10] LABS: EOS % 3.2 % (0-4.5); HEMATOCRIT 29.8 % (35.4-49); HEMOGLOBIN 9.8 GM/dL (11.7-16.9); MCHC 32.8 g/dl (32.0-35.9); MEAN CELL VOLUME 88.4 fl (80-96); MEAN PLT VOLUME 8.6 fl (7.5-11.1); MONO % 12.1 % (3.8-10.2); NEUT % 54.7 % (42.8-82.8); PLATELET COUNT 187 K/MM3 (134-434); RBC 3.37 M/mm3 (4.00-5.60); RDW 17.3 % (11.9-15.9); WHITE BLOOD COUNT 5.3 K/mm3 (4.0-10.0)
[2017-11-05 08:49] LABS: ANION GAP 11 (8-16); BLOOD UREA NITROGEN 84 mg/dL (7-18); CHLORIDE 103 mmol/L (98-107); CO2 26 mmol/L (21-32); GLUCOSE,RANDOM 73 mg/dL (74-106); MAGNESIUM 2.5 mg/dL (1.8-2.4); PHOSPHOROUS 5.9 mg/dL (2.5-4.9); POTASSIUM 5.5 mmol/L (3.5-5.1); SODIUM 140 mmol/L (136-145)
[2017-11-05 08:56] LABS: CREATININE 8.9 mg/dL (0.7-1.3)
[2017-11-05] MEDS: SUCRALFATE 1 GM/10 ML UNIT DOSE CUPS PO SCH (09:47)
[2017-11-05] MEDS ORDERED: amLODIPine BESYLATE 10 MG TABLET (FP) PO SCH (10:00)
[2017-11-05] MEDS ORDERED: LOSARTAN POTASSIUM 50 MG TABLET (FP) PO SCH (10:00)
[2017-11-05] MEDS ORDERED: VITAMIN B COMP W-C 1 EA TABLET PO SCH (10:00)
[2017-11-05] MEDS ORDERED: metoPROLOL SUCCINATE 25 MG TAB.SR.24H (FP) PO SCH (10:00)
--- NOTE | 2017-11-05 10:21 | PN ---
Progress Note (short form) - Note Progress Note: pt in OR-- not seen by me Vital Signs - 24 hr 11/04/17 11/04/17 11/04/17 11:53 17:43 21:01 Temperature 97.7 F Pulse Rate 71 Pulse Rate [ 72 Apical] Respiratory 18 16 18 Rate Blood Pressure 134/84 Blood Pressure 187/89 [Right Arm] O2 Sat by Pulse 100 97 97 Oximetry (%) 11/05/17 11/05/17 11/05/17 06:26 07:02 07:44 Temperature Pulse Rate Pulse Rate [ 71 Apical] Respiratory 18 Rate Blood Pressure Blood Pressure 132/75 149/70 [Right Arm] O2 Sat by Pulse 97 97 Oximetry (%) Current Medications Generic Name Dose Route Start Last Admin Trade Name Freq PRN Reason Stop Dose Admin Amlodipine Besylate 10 mg 11/05/17 10:00 11/05/17 10:08 Norvasc - PO Not Given DAILY VALERIA Atorvastatin Calcium 10 mg 11/04/17 22:00 11/05/17 00:33 Lipitor - PO 10 mg HS VALERIA Administration Insulin Aspart 1 vial 11/04/17 22:00 11/05/17 00:05 Novolog Vial Sliding Scale - SQ Not Given HS [facility] Protocol Insulin Aspart 1 vial 11/05/17 07:00 11/05/17 07:01 Novolog Vial Sliding Scale - SQ Not Given TIDAC [facility] Protocol Insulin Detemir 15 units 11/04/17 22:00 11/04/17 22:40 Levemir Vial SQ 15 unit HS VALERIA Administration Losartan Potassium 50 mg 11/05/17 10:00 11/05/17 10:08 Cozaar - PO Not Given DAILY [facility] Metoprolol Succinate 25 mg 11/05/17 10:00 11/05/17 10:09 Toprol Xl - PO Not Given DAILY [facility] Multivit/Ca Carb/B Cmplx/FA/Prenat 1 tablet 11/05/17 10:00 11/05/17 10:08 Nephro-Kelly - PO Not Given DAILY [facility] Oxycodone HCl 10 mg 11/04/17 22:00 11/05/17 06:08 Roxicodone - PO 10 mg TID VALERIA Administration Sevelamer Carbonate 800 mg 11/05/17 08:00 11/05/17 10:08 Renvela - PO Not Given TIDCM [facility] Sucralfate 1 gm 11/04/17 22:00 11/05/17 09:47 Carafate Oral Suspension - PO Not Given QID VALERIA Zolpidem Tartrate 10 mg 11/04/17 21:14 Ambien - PO HS PRN INSOMNIA Laboratory Results - last 24 hr 11/04/17 11/04/17 11/04/17 13:12 13:12 21:00 WBC 6.0 RBC 3.69 L D Hgb 10.6 L D Hct 32.5 L D MCV 88.1 MCH 28.6 MCHC 32.5 RDW 17.4 H Plt Count 202 MPV 8.4 Neutrophils % 61.5 Lymphocytes % 23.7 D Monocytes % 10.6 H Eosinophils % 3.0 Basophils % 1.2 PT with INR 13.10 H INR 1.16 H Sodium 138 Potassium 6.1 H* D Chloride 102 Carbon Dioxide 27 Anion Gap 9 BUN 73 H Creatinine 8.2 H* D Creat Clearance w eGFR 6.77 POC Glucometer Random Glucose 99 D Calcium 8.3 L Phosphorus 4.8 Magnesium 2.6 H D Total Bilirubin 0.4 AST 26 D ALT 44 D Alkaline Phosphatase 256 H Total Protein 7.9 Albumin 3.6 D 11/04/17 11/04/17 11/05/17 21:00 23:54 06:04 WBC 5.3 RBC 3.37 L Hgb 9.8 L Hct 29.8 L MCV 88.4 MCH 29.0 MCHC 32.8 RDW 17.3 H Plt Count 187 MPV 8.6 Neutrophils % 54.7 Lymphocytes % 29.0 D Monocytes % 12.1 H Eosinophils % 3.2 Basophils % 1.0 PT with INR INR Sodium 139 Potassium 5.9 H Chloride 104 Carbon Dioxide 24 Anion Gap 11 BUN 78 H Creatinine 8.5 H* Creat Clearance w eGFR POC Glucometer 115.54662 Random Glucose 75 D Calcium 8.5 Phosphorus Magnesium Total Bilirubin AST ALT Alkaline Phosphatase Total Protein Albumin 11/05/17 11/05/17 06:04 06:11 WBC RBC Hgb Hct MCV MCH MCHC RDW Plt Count MPV Neutrophils % Lymphocytes % Monocytes % Eosinophils % Basophils % PT with INR INR Sodium 140 Potassium 5.5 H Chloride 103 Carbon Dioxide 26 Anion Gap 11 BUN 84 H Creatinine 8.9 H* Creat Clearance w eGFR POC Glucometer [phone] Random Glucose 73 L Calcium 8.0 L Phosphorus 5.9 H D Magnesium 2.5 H Total Bilirubin AST ALT Alkaline Phosphatase Total Protein Albumin
[2017-11-05] MEDS ORDERED: LIDOCAINE HCL/PF 2% SDV 5ML VIAL ONE (10:57)
[2017-11-05] MEDS ORDERED: PROPOFOL 20 ML ONE (10:57)
[2017-11-05] MEDS ORDERED: MIDAZOLAM HCL 2 MG/2 ML SINGLE DOSE VIAL ONE (11:01)
[2017-11-05 11:10] VITALS: BMI 29.7
[2017-11-05] MEDS ORDERED: ONDANSETRON 4 MG/2 ML VIAL IVPUSH PRN ×2 (11:39→13:14)
[2017-11-05] MEDS ORDERED: HEPARIN NA (PORCINE) 5,000 UNITS/ML 1ML VIAL ONE ×2 (11:39→12:17)
[2017-11-05] MEDS ORDERED: ceFAZolin SODIUM 1 GM VIAL ONE (12:05)
[2017-11-05] MEDS ORDERED: SODIUM CHLORIDE 0.9% P/F 10 ML VIAL IJ ONE (12:05)
[2017-11-05] MEDS ORDERED: LIDOCAINE HCL 1%, 10 MG/ML (20ML VIAL) NR ONE ×2 (12:06)
--- NOTE | 2017-11-05 13:00 | OP ---
Operative Note - Note: Operative Date: 11/05/17 Pre-Operative Diagnosis: Clotted RUE av graft Operation: Open trhombectomy rue av graft Post-Operative Diagnosis: Same as Pre-op Surgeon: Reymundo Gonzalze Mine Technician: Franki Butts Anesthesiologist/GAS DESULFURIZER: Foreign Avery Anesthesia: Fractional Estimated Blood Loss (mls): 30 Operative Report Dictated: Yes
--- NOTE | 2017-11-05 13:02 | SURG ---
Surgery Purchaser Note Purchaser: Franki Butts PA-C Date of Service: 11/05/17 Diagnosis: ESRD on HD, clotted RUE AV graft Procedure: Open thrombectomy RUE AV graft I was present for the entirety of the operative procedure. For further detail, please refer to operative report. Visit type - Case Type Case Type: ED Admission
--- NOTE | 2017-11-05 13:16 | EKG ---
Test Reason : Blood Pressure : / mmHG Vent. Rate : 067 BPM Atrial Rate : 067 BPM P-R Int : 174 ms QRS Dur : 094 ms QT Int : 420 ms P-R-T Axes : 032 -56 148 degrees QTc Int : 443 ms NORMAL SINUS RHYTHM POSSIBLE LEFT ATRIAL ENLARGEMENT LEFT AXIS DEVIATION PULMONARY DISEASE PATTERN INCOMPLETE RIGHT BUNDLE BRANCH BLOCK T WAVE ABNORMALITY, CONSIDER LATERAL ISCHEMIA ABNORMAL ECG WHEN COMPARED WITH ECG OF 21-OCT-2017 08:41, VENT. RATE HAS DECREASED BY 63 BPM Confirmed by JF WHITE MD ([id number]) on 11/05/2017 1:15:58 PM Referred By: Confirmed By:JF WHITE MD
[2017-11-05] MEDS ORDERED: oxyCODONE HCL 5 MG TABLET PO SCH (14:00)
[2017-11-05 14:06] VITALS: TEMP 98.2
[2017-11-05] MEDS ORDERED: SUCRALFATE 1 GM/10 ML UNIT DOSE CUPS PO SCH (14:45)
--- NOTE | 2017-11-05 15:49 | PN ---
Progress Note (short form) - Note Progress Note: RENAL 57 DM RETINOPATHY CAD POST CABG RECENT ADMITTED 2 WEEKS BACK WITH GI BLEED NOW BACK WITH A CLOTTED ACCESS K 6.1 REFUSED BENY Hernandez TREATED GOT KAYEXALATE D50 INSULIN CA LAST NIGHT DECLOTTED THIS AM SEEN AT HD 3.5 HR K2 CA2.5 [facility] 4 KG WANTS TO GO HOME TODAY REPEAT HD IN AM DC PER MED
[2017-11-05 18:13] VITALS: BP 137/74; PULSE 69
[2017-11-05] MEDS ORDERED: INSULIN (LEVEMIR) 100 UNITS/ML UNITS SQ SCH (22:00)
[2017-11-05] MEDS ORDERED: ZOLPIDEM TARTRATE 5 MG TABLET PO PRN (22:00)
[2017-11-05] MEDS ORDERED: ATORVASTATIN CA 10 MG TABLET (FP) PO SCH (22:00)
--- NOTE | 2017-11-05 23:27 | DS ---
Physical Examination Vital Signs: Vital Signs Temperature 98.2 F 11/05/17 13:40 Pulse Rate 69 11/05/17 18:09 Respiratory Rate 18 11/05/17 18:09 Blood Pressure 137/74 11/05/17 18:09 O2 Sat by Pulse Oximetry (%) 98 11/05/17 13:25 Labs: CBC, BMP 11/05/17 06:04 11/05/17 06:04 Discharge Summary Reason For Visit: SHUNT MALFUNCTION; ESRD; HYPERKALEMIA Hospital Course: was sent for malfunction of shunt-- s/p thrombectomy done, dialysed by Renal stable for dc home Condition: Stable - Instructions Diet, Activity, Other Instructions: Post Operative Instructions Physical activity Resume your normal everyday activity as tolerated no heavy lifting or exercise until seen by your surgeon. You may walk unlimited amounts of and climb stairs. You may resume driving the car when you feel safe and comfortable behind the wheel. Wound care If you have a bandage, leave it on, and keep dry for 48 - 72 hours. After that time discard the outer bandage. If there are tapes on the skin under the outer bandage, leave them in place. They will peel off in the next 7 to 10 days. Do Not peel them off. You may shower 2 days after surgery. If there are tapes present on the skin, they can get wet. Diet There are no dietary restrictions. Eat healthy, high-fiber foods. Drink 6 to 8 glasses of liquid each day. This will assist in keeping your bowels are regular. Pain management You may take Tylenol or acetaminophen or Ibuprofen (for example, Motrin, Advil etc.) Call Dr. Gonzalez for any of the following: Severe pain not relieved by medication Fever of 101 or higher Excessive bleeding or drainage on dressing Call the office for a post operative appointment in 7 - 10 days. Referrals: Singh Sandra MD [Primary Care Provider] - Reymundo Gonzalez MD [Staff Physician] - Disposition: HOME - Home Medications Comprehensive Discharge Medication List: Ambulatory Orders Amlodipine Besylate [Norvasc -] 10 mg PO DAILY tablet 06/14/16 Atorvastatin Ca [Lipitor] 10 mg PO HS #30 tablet 06/14/16 Insulin Glargine,Hum.rec.anlog [Lantus (10mL VIAL) -] 15 units SQ HS 07/05/16 Folic Acid/Vit B Complex and C [Piedad-Kelly Tablet] 0.8 mg PO DAILY 04/09/17 Metoprolol Succinate [Toprol XL -] 25 mg PO DAILY 04/09/17 Sevelamer Carbonate [Renvela -] 800 mg PO TID 04/09/17 Losartan Potassium [Cozaar -] 50 mg PO DAILY tablet 04/21/17 Oxycodone HCl 10 mg PO Q8H #20 tablet MDD 3 04/21/17 Sucralfate Oral Suspension [Carafate Oral Suspension -] 1 gm PO QID 30 Days # 120 ml 10/24/17 Zolpidem Tartrate [Ambien] 10 mg PO HS PRN MDD 1 11/04/17
[2017-11-06] MEDS ORDERED: metoPROLOL SUCCINATE 25 MG TAB.SR.24H (FP) PO SCH (10:00)
[2017-11-06] MEDS ORDERED: amLODIPine BESYLATE 10 MG TABLET (FP) PO SCH (10:00)
[2017-11-06] MEDS ORDERED: VITAMIN B COMP W-C 1 EA TABLET PO SCH (10:00)
[2017-11-06] MEDS ORDERED: LOSARTAN POTASSIUM 50 MG TABLET (FP) PO SCH (10:00)
--- NOTE | 2017-11-17 20:20 | OP ---
DATE OF OPERATION: 11/05/2017 SURGEON: Reymundo West MD PROCEDURE: Open thrombectomy, right upper extremity arteriovenous graft. PREOPERATIVE DIAGNOSIS: Thrombosed arteriovenous graft. POSTOPERATIVE DIAGNOSIS: Thrombosed arteriovenous graft. ANESTHESIA: Fractional. ANESTHESIOLOGIST: Foreign Avery MD LOCOMOTIVE INSPECTOR: STEPHANE Romo OPERATIVE FINDINGS: The left arm AV graft was thrombosed. There was no evidence of significant stenosis of the arterial anastomosis or venous runoff. OPERATIVE PROCEDURE: Following routine patient identification with side and site verification, intravenous sedation was established. The right arm was prepped with ChloraPrep, and 1% lidocaine was infiltrated over the AV graft near the elbow. An incision was made over the graft, which was deepened through the subcutaneous tissues using cautery. The graft was mobilized from the surrounding tissues and encircled proximally and distally with vessel loops. A transverse incision was made in the graft. Number 4 Wili catheter was passed into the venous limb of the HeRo graft. This was then withdrawn with removal of thrombus. After several passes, there was return of venous backbleeding. The graft was filled with heparin/saline solution and occluded with a vascular clamp. Thrombectomy of the arterial end was then performed with removal of thrombus and restorationism of arterial inflow. The limb that was filled with heparin solution was occluded. The incision in the graft was then closed with interrupted and running sutures of 6-0 Prolene. Prior to completion of the suture line, the graft was again allowed to flush and was flushed again with heparin solution. Suture line was completed, and all clamps were removed. There was good flow through the graft with a palpable pulse. Wound was irrigated and closed with interrupted sutures of 3-0 Vicryl and skin eliazar. Sterile dressings were applied, and the patient was taken to the recovery room in stable condition. REYMUNDO WEST M.D. [id number]
== END 2017-11-05 08:00 | disposition home or self-care (01) ==
LOC: JER 11:49 → INTOOBSV 17:54 → JERBED 17:54 → J4S 11-05 18:05
PROVIDERS: ADMIT Internal Medicine; ATTEND Internal Medicine
PROC: 03C90ZZ Extirpation of Matter from Right Ulnar Artery, Open Approach (ICD-10-PCS; principal; 2017-11-04)
DX: T82.868A Thrombosis due to vascular prosthetic devices, implants and grafts, initial encounter (principal); T82.590A Other mechanical complication of surgically created arteriovenous fistula, initial encounter; E11.22 Type 2 diabetes mellitus with diabetic chronic kidney disease; I12.0 Hypertensive chronic kidney disease with stage 5 chronic kidney disease or end stage renal disease; N18.6 End stage renal disease; Z99.2 Dependence on renal dialysis; Z79.4 Long term (current) use of insulin; E78.5 Hyperlipidemia, unspecified; E87.5 Hyperkalemia; Y82.8 Other medical devices associated with adverse incidents; Y92.89 Other specified places as the place of occurrence of the external cause; Z95.1 Presence of aortocoronary bypass graft
CPT/HCPCS: 36415; 80048; 80053; 82962; 83735; 84100; 85025; 85610; 93005; 93010; 93971; 94760; 99284-25; G0378; J1644

== ENCOUNTER 2017-11-23 19:48 | Inpatient (IN) | payer OTHER ==
[2017-11-23 19:53] VITALS: BMI 29.7
[2017-11-23] MEDS ORDERED: FAMOTIDINE IV 20 MG/12 ML VIAL IVPUSH ONE (20:10)
[2017-11-23] MEDS ORDERED: morphine CARPU-JECT 4 MG/1 ML DISP.SYRIN IVPUSH ONE ×3 (20:10→22:07)
[2017-11-23] MEDS ORDERED: PANTOPRAZOLE SODIUM 40 MG VIAL IVPUSH ONE (20:12)
--- NOTE | 2017-11-23 20:17 | PDOC ---
History of Present Illness - General History Source: Patient, Old Records Exam Limitations: No Limitations - History of Present Illness Initial Comments: 11/23/17 20:18 The patient is a 57 year old male, with a significant PMH of diabetes, end- stage renal disease on dialysis, last dialysis yesterday, peptic ulcer disease who presents to the emergency department with epigastric pain and blood tinged vomiting for the past 3 days. The patient describes the epigastric pain as constant. The patient states the epigastric pain is similar in character to his peptic ulcer disease and prior hematemesis. The patient endorses decreased appetite. Patient is taking omeprazole at home with minimal relief. The patient denies chest pain, shortness of breath, headache and dizziness. Denies fever, chills, diarrhea and constipation. Denies dysuria, frequency, urgency and hematuria. Allergies: NKA Past surgical history: None reported. Social history: No reported alcohol, drug, or cigarette use. PCP: Dr. Sandra <Lxey Angeles - Last Filed: 11/23/17 20:27> - General History Source: Patient, Old Records Exam Limitations: No Limitations <Mateus Machado - Last Filed: 11/24/17 00:04> - General Chief Complaint: Pain Stated Complaint: PAIN Time Seen by Provider: 11/23/17 20:08 Past History <Lexy Angeles - Last Filed: 11/23/17 20:27> - Past Medical History Anemia: No Cardiac Disorders: Yes COPD: No DVT: No Diabetes: Yes Dialysis: Yes (TUES,THR,SAT RT ARM DIALYSIS ACCESS) GI Disorders: Yes HTN: Yes Hypercholesterolemia: Yes - Surgical History Cardiac Surgery: Yes (CABG) Orthopedic Surgery: Yes (OR debridement left foot wound) - Immunization History Immunization Up to Date: No - Suicide/Smoking/Psychosocial Hx Smoking Status: No Smoking History: Never smoked Have you smoked in the past 12 months: No Number of Cigarettes Smoked Daily: 0 Hx Alcohol Use: No Drug/Substance Use Hx: No Substance Use Type: None Hx Substance Use Treatment: No <Mateus Machado - Last Filed: 11/24/17 00:04> - Past Medical History Allergies/Adverse Reactions: Allergies Allergy/AdvReac Type Severity Reaction Status Date / Time No Known Drug Allergies Allergy Verified 11/04/17 11:52 Home Medications: Ambulatory Orders Amlodipine Besylate [Norvasc -] 10 mg PO DAILY tablet 06/14/16 Atorvastatin Ca [Lipitor] 10 mg PO HS #30 tablet 06/14/16 Insulin Glargine,Hum.rec.anlog [Lantus (10mL VIAL) -] 15 units SQ HS 07/05/16 Folic Acid/Vit B Complex and C [Piedad-Kelly Tablet] 0.8 mg PO DAILY 04/09/17 Metoprolol Succinate [Toprol XL -] 25 mg PO DAILY 04/09/17 Sevelamer Carbonate [Renvela -] 800 mg PO TID 04/09/17 Losartan Potassium [Cozaar -] 50 mg PO DAILY tablet 04/21/17 Oxycodone HCl 10 mg PO Q8H #20 tablet MDD 3 04/21/17 Sucralfate Oral Suspension [Carafate Oral Suspension -] 1 gm PO QID 30 Days # 120 ml 10/24/17 Zolpidem Tartrate [Ambien] 10 mg PO HS PRN MDD 1 11/04/17 Review of Systems - Review of Systems Able to Perform ROS?: Yes Comments:: 11/23/17 20:23 GENERAL/CONSTITUTIONAL: No fever or chills. No weakness. HEAD, EYES, EARS, NOSE AND THROAT: No change in vision. No ear pain or discharge. No sore throat. CARDIOVASCULAR: No chest pain or shortness of breath. RESPIRATORY: No cough, wheezing, or hemoptysis. GASTROINTESTINAL: (+) Epigastric pain. (+) Blood tinged vomiting. No diarrhea or constipation. GENITOURINARY: No dysuria, frequency, or change in urination. MUSCULOSKELETAL: No joint or muscle swelling or pain. No neck or back pain. SKIN: No rash NEUROLOGIC: No headache, vertigo, loss of consciousness, or change in strength/ sensation. ENDOCRINE: No increased thirst. No abnormal weight change. HEMATOLOGIC/LYMPHATIC: No anemia, easy bleeding, or history of blood clots. ALLERGIC/IMMUNOLOGIC: No hives or skin allergy. <Lexy Angeles - Last Filed: 11/23/17 20:27> *Physical Exam - Vital Signs Last Vital Signs Temp Pulse Resp BP Pulse Ox 97.5 F L 85 20 193/67 98 11/23/17 19:51 11/23/17 19:51 11/23/17 19:51 11/23/17 19:51 11/23/17 19:51 - Physical Exam Comments: 11/23/17 20:24 GENERAL: Awake, alert, and fully oriented, in no acute distress HEAD: No signs of trauma EYES: PERRLA, EOMI, sclera anicteric, conjunctiva clear ENT: Auricles normal inspection, hearing grossly normal, nares patent, oropharynx clear without exudates. Moist mucosa NECK: Normal ROM, supple, no lymphadenopathy, JVD, or masses LUNGS: Breath sounds equal, clear to auscultation bilaterally. No wheezes, and no crackles HEART: Regular rate and rhythm, normal S1 and S2, no murmurs, rubs or gallops ABDOMEN: (+) Tenderness to the epigastrium. (+) Focally bound guarding. Soft, normoactive bowel sounds. No rebound. No masses. EXTREMITIES: (+) Right upper extremity fistula. Normal range of motion, no edema. No clubbing or cyanosis. No cords, erythema, or tenderness NEUROLOGICAL: Cranial nerves II through XII grossly intact. Normal speech. SKIN: Warm, Dry, normal turgor, no rashes or lesions noted. <Lexy Angeles - Last Filed: 11/23/17 20:27> - Vital Signs Last Vital Signs Temp Pulse Resp BP Pulse Ox 97.5 F L 85 20 193/67 98 11/23/17 19:51 11/23/17 19:51 11/23/17 19:51 11/23/17 19:51 11/23/17 19:51 <Mateus Machado - Last Filed: 11/24/17 00:04> ED Treatment Course - LABORATORY CBC & Chemistry Diagram: 11/23/17 20:20 11/23/17 20:20 - RADIOLOGY Radiology Studies Ordered: Category Date Time Status CHEST X-RAY PORTABLE* [RAD] Stat Radiology 11/23/17 20:10 Ordered <Mateus Machado - Last Filed: 11/24/17 00:04> Medical Decision Making - Medical Decision Making 11/23/17 20:15 A portion of this note was documented by scribe services under my direction. I have reviewed the details of the note, within reason, and agree with the documentation with the following case summary and management plan written by me. Patient treated in the ED. Nursing notes are reviewed and incorporated into the medical decision-making. Vital signs reviewed. Peripheral IV access obtained by the nurse, laboratory studies are drawn and sent, reviewed and interpreted by myself. Vital Signs Temp Pulse Resp BP Pulse Ox 97.5 F L 85 20 193/67 98 11/23/17 19:51 11/23/17 19:51 11/23/17 19:51 11/23/17 19:51 11/23/17 19:51 57-year-old male with history of diabetes, end-stage renal disease on dialysis, last ounces yesterday, peptic ulcer disease presents with epigastric pain and vomiting. The patient reports that the symptoms persisted for 3 days and is constant. States that the pain is characteristic of his prior peptic ulcer disease and when he had hematemesis. Reports nausea and vomiting. Reports decreased appetite but denies fevers. States that he's been taking his omeprazole with minimal relief. He reports some mild blood-tinged vomitus. Denies diarrhea. I suspect that the patient likely has peptic ulcer disease exacerbation. He is in pain. We'll obtain blood work including labs and lipase. Chest x-ray, EKG, troponin, though less likely to be acute coronary syndrome. 11/24/17 00:01 CBC, BMP 11/23/17 20:20 11/23/17 20:20 CMP Sodium 136 mmol/L (136-145) 11/23/17 20:20 Potassium 5.6 mmol/L (3.5-5.1) H 11/23/17 20:20 Chloride 95 mmol/L (98-107) L 11/23/17 20:20 Carbon Dioxide 26 mmol/L (21-32) 11/23/17 20:20 Anion Gap 15 (8-16) 11/23/17 20:20 BUN 47 mg/dL (7-18) H D 11/23/17 20:20 Creatinine 7.5 mg/dL (0.7-1.3) H* 11/23/17 20:20 Creat Clearance w eGFR 7.50 (>60) 11/23/17 20:20 Random Glucose 298 mg/dL (74-106) H D 11/23/17 20:20 Calcium 9.1 mg/dL (8.5-10.1) 11/23/17 20:20 Phosphorus 4.3 mg/dL (2.5-4.9) D 11/23/17 20:20 Magnesium 2.5 mg/dL (1.8-2.4) H 11/23/17 20:20 Total Bilirubin 0.5 mg/dL (0.2-1.0) D 11/23/17 20:20 AST 19 U/L (15-37) D 11/23/17 20:20 ALT 28 U/L (12-78) D 11/23/17 20:20 Alkaline Phosphatase 183 U/L (45-117) H D 11/23/17 20:20 Creatine Kinase 49 IU/L (39-308) 11/23/17 20:20 Troponin I < 0.02 ng/ml (0.00-0.05) D 11/23/17 20:20 Total Protein 8.9 g/dl (6.4-8.2) H 11/23/17 20:20 Albumin 4.2 g/dl (3.4-5.0) 11/23/17 20:20 Lipase 150 U/L (73-393) 11/23/17 20:20 Pt continued to have persistent pain despite numerous doses of morphine, protonix, pepcid, [place]. CT obtained to r/o [facility]. CT scan of abdomen and pelvis reviewed. No acute findings. Given persistence of pain, decision was made to admit the patient to the hospital. Case discussed with [facility] hospitalist. Accepted to med/surg obs. Case discussed in detail with admitting physician including history, physical exam and ancillary studies. Admitting physician has assumed care for the patient, will follow all pending diagnostics and will complete the evaluation and treatment. <Mateus Machado - Last Filed: 11/24/17 00:04> *DC/Admit/Observation/Transfer - Attestations Scribe Attestion: 11/23/17 20:28 Documentation prepared by Lexy Angeles, acting as general medical practitioner for Mateus Machado MD. <Lexy Angeles - Last Filed: 11/23/17 20:27> - Discharge Dispostion Decision to Admit order: Yes <Mateus Machado - Last Filed: 11/24/17 00:04> Diagnosis at time of Disposition: Peptic ulcer disease - Discharge Dispostion Condition at time of disposition: Stable - Referrals Referrals: Singh Sandra MD [Primary Care Provider] - - Patient Instructions - Post Discharge Activity
[2017-11-23] MEDS ORDERED: morphine SULFATE 4 MG/ML VIAL ONE ×3 (20:27→23:14)
[2017-11-23] MEDS ORDERED: FAMOTIDINE 20 MG/50 ML IVPB 20 MG/50 ML MG IVPB ONE (20:28)
[2017-11-23] MEDS ORDERED: PANTOPRAZOLE SODIUM 40 MG/100 ML BAG IVPB ONE (20:28)
[2017-11-23 20:40] LABS: BASO % 0.4 % (0-2.0); EOS % 0.2 % (0-4.5); HEMOGLOBIN 13.1 GM/dL (11.7-16.9); LYMPH % 20.8 % (8-40); MCH 27.6 pg (25.7-33.7); MEAN CELL VOLUME 86.3 fl (80-96); MEAN PLT VOLUME 8.4 fl (7.5-11.1); NEUT % 70.6 % (42.8-82.8); PLATELET COUNT 172 K/MM3 (134-434); RBC 4.75 M/mm3 (4.00-5.60); RDW 18.2 % (11.9-15.9); WHITE BLOOD COUNT 5.2 K/mm3 (4.0-10.0)
[2017-11-23] MEDS: PANTOPRAZOLE SODIUM 80 MG in SODIUM CHLORIDE 100 ML IVPB SCH (20:40)
[2017-11-23 20:52] LABS: INR 1.07 (0.82-1.09); PROTHROMBIN TIME (PATIENT) 12.1 SEC (9.7-13.0)
[2017-11-23 20:55] LABS: ACTIVATED PTT 26.9 SECONDS (26.9-34.4)
[2017-11-23] MEDS ORDERED: ONDANSETRON 4 MG/2 ML VIAL IVPB ONE ×2 (21:00→22:54)
[2017-11-23 21:03] LABS: ALBUMIN 4.2 g/dl (3.4-5.0); ANION GAP 15 (8-16); BILIRUBIN,TOTAL 0.5 mg/dL (0.2-1.0); BLOOD UREA NITROGEN 47 mg/dL (7-18); CALCIUM 9.1 mg/dL (8.5-10.1); CHLORIDE 95 mmol/L (98-107); CO2 26 mmol/L (21-32); GLUCOSE,RANDOM 298 mg/dL (74-106); LIPASE 150 U/L (73-393); MAGNESIUM 2.5 mg/dL (1.8-2.4); PHOSPHOROUS 4.3 mg/dL (2.5-4.9); POTASSIUM 5.6 mmol/L (3.5-5.1); SGOT/AST 19 U/L (15-37); SGPT/ALT 28 U/L (12-78); SODIUM 136 mmol/L (136-145); TOT PROT 8.9 g/dl (6.4-8.2)
[2017-11-23 21:04] LABS: ALK PHOS 183 U/L (45-117)
[2017-11-23] MEDS ORDERED: ONDANSETRON 4 MG/2 ML VIAL ONE ×2 (21:04→23:15)
[2017-11-23 21:05] LABS: CREATININE 7.5 mg/dL (0.7-1.3)
[2017-11-23] MEDS ORDERED: MAG HYDROX/AL HYDROX/SIMETH 30 ML UNIT-DOSE CUP PO ONE (21:29)
[2017-11-23] MEDS ORDERED: SUCRALFATE 1 GM TABLET (FP) PO ONE (21:29)
[2017-11-23] MEDS ORDERED: SUCRALFATE 1 GM TABLET (FP) ONE (21:51)
[2017-11-23] MEDS ORDERED: MAG HYDROX/AL HYDROX/SIMETH 30 ML UNIT-DOSE CUP ONE (21:52)
[2017-11-23] MEDS ORDERED: PANTOPRAZOLE SODIUM 40 MG VIAL ONE (23:15)
--- NOTE | 2017-11-24 00:12 | HP ---
CHIEF COMPLAINT: Abdominal Pain PCP: Dr. Sandra HISTORY OF PRESENT ILLNESS: The patient is a 57 y/o man PMH: ESRD on dialysis, last dialysis yesterday, Peptic Ulcer Disease, DM. Who presents to the ED with epigastric pain and blood tinged vomiting for the past 3 days. The patient describes the epigastric pain as constant. The patient states the epigastric pain is similar in character to his peptic ulcer disease and prior hematemesis. The patient endorses decreased appetite. Patient is taking omeprazole at home with minimal relief. The patient denies chest pain, shortness of breath, headache and dizziness. Denies fever, chills, diarrhea and constipation. Denies dysuria, frequency, urgency and hematuria. ER course was notable for: (1) K- 5.6 (2) CKD- BUN 47, Cr 7.5 (3) Lipase 150 Recent Travel: None PAST MEDICAL HISTORY: See HPI PAST SURGICAL HISTORY: RT AV- Fistula Social History: Smoking: Never Alcohol: None Drugs: None Family History: Allergies No Known Drug Allergies Allergy (Verified 11/04/17 11:52) HOME MEDICATIONS: Home Medications Medication Instructions Recorded Amlodipine Besylate [Norvasc -] 10 mg PO DAILY tablet 06/14/16 Atorvastatin Ca [Lipitor] 10 mg PO HS #30 tablet 06/14/16 Insulin Glargine,Hum.rec.anlog 15 units SQ HS 07/05/16 [Lantus (10mL VIAL) -] Folic Acid/Vit B Complex and C 0.8 mg PO DAILY 04/09/17 [Piedad-Kelly Tablet] Metoprolol Succinate [Toprol XL -] 25 mg PO DAILY 04/09/17 Sevelamer Carbonate [Renvela -] 800 mg PO TID 04/09/17 Losartan Potassium [Cozaar -] 50 mg PO DAILY tablet 04/21/17 Oxycodone HCl 10 mg PO Q8H #20 tablet MDD 3 04/21/17 Sucralfate Oral Suspension 1 gm PO QID 30 Days #120 ml 10/24/17 [Carafate Oral Suspension -] Zolpidem Tartrate [Ambien] 10 mg PO HS PRN MDD 1 11/04/17 REVIEW OF SYSTEMS CONSTITUTIONAL: Absent: fever, chills, diaphoresis, generalized weakness, malaise, loss of appetite, weight change HEENT: Absent: rhinorrhea, nasal congestion, throat pain, throat swelling, difficulty swallowing, mouth swelling, ear pain, eye pain, visual changes CARDIOVASCULAR: Absent: chest pain, syncope, palpitations, irregular heart rate, lightheadedness , peripheral edema RESPIRATORY: Absent: cough, shortness of breath, dyspnea with exertion, orthopnea, wheezing, stridor, hemoptysis GASTROINTESTINAL: abdominal pain, nausea, vomiting, Absent: abdominal distension, diarrhea, constipation, melena, hematochezia GENITOURINARY: Absent: dysuria, frequency, urgency, hesitancy, hematuria, flank pain, genital pain MUSCULOSKELETAL: Absent: myalgia, arthralgia, joint swelling, back pain, neck pain SKIN: Absent: rash, itching, pallor HEMATOLOGIC/IMMUNOLOGIC: Absent: easy bleeding, easy bruising, lymphadenopathy, frequent infections ENDOCRINE: Absent: unexplained weight gain, unexplained weight loss, heat intolerance, cold intolerance NEUROLOGIC: Absent: headache, focal weakness or paresthesias, dizziness, unsteady gait, seizure, mental status changes, bladder or bowel incontinence PSYCHIATRIC: Absent: anxiety, depression, suicidal or homicidal ideation, hallucinations. PHYSICAL EXAMINATION Vital Signs - 24 hr 11/23/17 19:51 Temperature 97.5 F L Pulse Rate 85 Respiratory 20 Rate Blood Pressure 193/67 O2 Sat by Pulse 98 Oximetry (%) GENERAL: Awake, alert, and fully oriented, in no acute distress. HEAD: Normal with no signs of trauma. EYES: Pupils equal, round and reactive to light, extraocular movements intact, sclera anicteric, conjunctiva clear. No lid lag. EARS, NOSE, THROAT: Ears normal, nares patent, oropharynx clear without exudates. Dry mucous membranes. NECK: Normal range of motion, supple without lymphadenopathy, JVD, or masses. LUNGS: Breath sounds equal, clear to auscultation bilaterally. No wheezes, and no crackles. No accessory muscle use. HEART: Regular rate and rhythm, normal S1 and S2 without murmur, rub or gallop. ABDOMEN: Soft, epigastric tenderness, not distended, normoactive bowel sounds, no guarding, no rebound, no masses. No hepatomegaly or splenomegaly. MUSCULOSKELETAL: Normal range of motion at all joints. No bony deformities or tenderness. No CVA tenderness. UPPER EXTREMITIES: 2+ pulses, warm, well-perfused. No cyanosis. No clubbing. No peripheral edema. RT Arm Fistula +thrill LOWER EXTREMITIES: 2+ pulses, warm, well-perfused. No calf tenderness. No peripheral edema. NEUROLOGICAL: Cranial nerves II-XII intact. Normal speech. Gait not observed. PSYCHIATRIC: Cooperative. Good eye contact. Appropriate mood and affect. SKIN: Warm, dry, normal turgor, no rashes or lesions noted, normal capillary refill. Laboratory Results - last 24 hr 11/23/17 11/23/17 11/23/17 20:20 20:20 20:20 WBC 5.2 RBC 4.75 D Hgb 13.1 D Hct 41.0 D MCV 86.3 MCH 27.6 MCHC 32.0 RDW 18.2 H Plt Count 172 MPV 8.4 Neutrophils % 70.6 D Lymphocytes % 20.8 D Monocytes % 8.0 Eosinophils % 0.2 D Basophils % 0.4 Nucleated RBC % 0 PT with INR 12.10 INR 1.07 PTT (Actin FS) 26.9 Sodium 136 Potassium 5.6 H Chloride 95 L Carbon Dioxide 26 Anion Gap 15 BUN 47 H D Creatinine 7.5 H* Creat Clearance w eGFR 7.50 Random Glucose 298 H D Calcium 9.1 Phosphorus 4.3 D Magnesium 2.5 H Total Bilirubin 0.5 D AST 19 D ALT 28 D Alkaline Phosphatase 183 H D Creatine Kinase 49 Troponin I < 0.02 D Total Protein 8.9 H Albumin 4.2 Lipase 150 ASSESSMENT/PLAN: 57 y/o man PMH: ESRD (HD- Mo, We, Fr), Peptic Ulcer Disease, CAD s/p CABG, DM, HTN, HLD. Placed in Observation for Intractable Abdominal Pain secodnary to Peptic Ulcer Flare. FEN - Replete lytes prn - NPO DVT ppx - OOB - SCDs Code Status: Full Code Dispo: Observation Problem List - Problem (1) Peptic ulcer disease Assessment/Plan: - ?Acute flare - No leukocytosis, amylase, lipase wnl - CT abdomen- reviewed - Continue Protonix Drip - Appreciate GI consult - Pain Mgmt- Morphine Sulfate - Monitor CBC, BMP - Monitor vitals Code(s): K27.9 - PEPTIC ULC, SITE UNSP, UNSP AC OR CHR, W/O HEMOR OR PERF (2) Abdominal pain Assessment/Plan: -See above - Likely secondary to Peptic Ulcer Flare Code(s): R10.9 - UNSPECIFIED ABDOMINAL PAIN Qualifiers: Abdominal location: epigastric Qualified Code(s): R10.13 - Epigastric pain (3) ESRD (end stage renal disease) on dialysis Assessment/Plan: - HD (, , ) - Appreciate Nephrology consult for HD Mgmt - Continue home meds Code(s): N18.6 - END STAGE RENAL DISEASE; Z99.2 - DEPENDENCE ON RENAL DIALYSIS (4) Anemia associated with chronic renal failure Assessment/Plan: - Stable - Hgb 13.1 - Will transfuse if Hgb < 7.0 - Monitor CBC Code(s): D63.1 - ANEMIA IN CHRONIC KIDNEY DISEASE (5) Diabetes Assessment/Plan: - Sub Optimal - BGMs - ISS when diet resumed - HgbA1c in am Code(s): E11.9 - TYPE 2 DIABETES MELLITUS WITHOUT COMPLICATIONS Qualifiers: Diabetes mellitus type: type 2 Diabetes mellitus complication status: with unspecified complications (6) HTN (hypertension) Assessment/Plan: - Sub Optimal - Monitor BP - Continue home med Code(s): I10 - ESSENTIAL (PRIMARY) HYPERTENSION Qualifiers: Hypertension type: essential hypertension Qualified Code(s): I10 - Essential (primary) hypertension (7) S/P CABG (coronary artery bypass graft) Assessment/Plan: - Stable - Patient denies chest pain, SOB Code(s): Z95.1 - PRESENCE OF AORTOCORONARY BYPASS GRAFT Visit type - Emergency Visit Emergency Visit: Yes ED Registration Date: 11/23/17 Care time: The patient presented to the Emergency Department on the above date and was hospitalized for further evaluation of their emergent condition. - New Patient This patient is new to me today: Yes Date on this admission: 11/24/17 - Critical Care Critical Care patient: No Hospitalist Screening - Colonoscopy Questionnaire Colonoscopy Questionnaire: Colonoscopy Questionnaire - Patient: 50 - 75 years old and never had a screening colonoscopy: No History of colon or rectal polyps, or CA: No History of IBD, Crohn's disease or UC: No History of abdominal radiation therapy as a child: No - Relative: 1 with colon or rectal CA, or polyps at age 60 or younger: No Colon or rectal CA diagnosed at age 45 or younger: No Multiple relatives with colon or rectal CA: No - Outcome: Screening Result: Negative Screen
[2017-11-24] MEDS ORDERED: morphine SULFATE 4 MG/ML VIAL ONE (02:00)
[2017-11-24] MEDS: morphine SULFATE 4 MG/ML VIAL IVPUSH PRN ×2 (02:12→08:56)
[2017-11-24] MEDS: ONDANSETRON 4 MG/2 ML VIAL IVPUSH PRN ×2 (05:01→12:00)
--- NOTE | 2017-11-24 08:41 | EKG ---
Test Reason : Blood Pressure : / mmHG Vent. Rate : 080 BPM Atrial Rate : 080 BPM P-R Int : 174 ms QRS Dur : 096 ms QT Int : 396 ms P-R-T Axes : 023 -69 117 degrees QTc Int : 456 ms NORMAL SINUS RHYTHM LEFT AXIS DEVIATION PULMONARY DISEASE PATTERN INCOMPLETE RIGHT BUNDLE BRANCH BLOCK ABNORMAL ECG WHEN COMPARED WITH ECG OF 04-NOV-2017 16:27, NONSPECIFIC T WAVE ABNORMALITY NO LONGER EVIDENT IN INFERIOR LEADS CLINICAL CORRELATION IS RECOMMENDED Confirmed by GAETANO MANCINI, NAEEM ([id number]) on 11/24/2017 8:41:42 AM Referred By: Confirmed By:NAEEM SALTER MD
[2017-11-24 10:27] LABS: BASO % 0.3 % (0-2.0); EOS % 0.1 % (0-4.5); HEMATOCRIT 38.8 % (35.4-49); HEMOGLOBIN 12.4 GM/dL (11.7-16.9); LYMPH % 15.7 % (8-40); MCH 28.1 pg (25.7-33.7); MCHC 31.9 g/dl (32.0-35.9); MEAN CELL VOLUME 88.2 fl (80-96); MEAN PLT VOLUME 9.1 fl (7.5-11.1); MONO % 7.5 % (3.8-10.2); NEUT % 76.4 % (42.8-82.8); PLATELET COUNT 167 K/MM3 (134-434); RBC 4.39 M/mm3 (4.00-5.60); RDW 17.8 % (11.9-15.9); WHITE BLOOD COUNT 4.3 K/mm3 (4.0-10.0)
[2017-11-24] MEDS ORDERED: PT OWN MED DRAWER 7, Y5N ONE (10:35)
[2017-11-24] MEDS: SEVELAMER CARBONATE 800 MG TAB (FP) PO SCH ×3 (10:41→16:35)
[2017-11-24] MEDS: LOSARTAN POTASSIUM 50 MG TABLET (FP) PO SCH (10:41)
[2017-11-24] MEDS: SUCRALFATE 1 GM/10 ML UNIT DOSE CUPS PO SCH ×4 (10:41→21:44)
[2017-11-24] MEDS: metoPROLOL SUCCINATE 25 MG TAB.SR.24H (FP) PO SCH (10:41)
[2017-11-24] MEDS: amLODIPine BESYLATE 10 MG TABLET (FP) PO SCH (10:41)
[2017-11-24] MEDS: VITAMIN B COMP W-C 1 EA TABLET PO SCH (10:41)
[2017-11-24 10:49] LABS: ANION GAP 12 (8-16); BLOOD UREA NITROGEN 58 mg/dL (7-18); CALCIUM 8.7 mg/dL (8.5-10.1); CHLORIDE 97 mmol/L (98-107); CO2 26 mmol/L (21-32); SODIUM 135 mmol/L (136-145)
[2017-11-24] MEDS ORDERED: INSULIN (NOVOLOG) ASPART 100 UNITS/ML 10ML VIAL SQ ONE (11:00)
[2017-11-24 11:17] LABS: GLUCOSE,RANDOM 319 mg/dL (74-106)
[2017-11-24 11:18] LABS: CREATININE 8.3 mg/dL (0.7-1.3); POTASSIUM 6.1 mmol/L (3.5-5.1)
[2017-11-24] MEDS ORDERED: PANTOPRAZOLE SODIUM 160 MG in DEXTROSE 5%-WATER - 290 ML IVPB SCH ×2 (11:30→22:00)
[2017-11-24] MEDS: PANTOPRAZOLE SODIUM 80 MG in SODIUM CHLORIDE 100 ML IVPB SCH (11:48)
[2017-11-24] MEDS ORDERED: PANTOPRAZOLE SODIUM 80 MG in SODIUM CHLORIDE 100 ML IVPB SCH (12:00)
--- NOTE | 2017-11-24 12:00 | CON.GI ---
Consult Consult Specialty:: Gastroeneterology - History of Present Illness History of Present Illness: 57 y/o male with PMH of ESRD, DM , Peptic ulcer disese was admitted because of abdominal pain. This was associated with abdominal bloatinf, nause and vomiting / S/p EGD by Dr Alvarez which revealed multiple gastric ulcers. Patient CT revealed a distended stomach. 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 Cardio/Vascular: Yes: CAD (CABG), HTN, Hyperlipdemia Renal/: Yes: Renal Failure, Hemodialysis Musculoskeletal: Yes: Other (peripheral vascular disease) Endocrine: Yes: Diabetes Mellitus - Past Surgical History Past Surgical History: Yes: Amputation, AV Fistula/Graft, CABG - Alcohol/Substance Use Hx Alcohol Use: No History of Substance Use: reports: None - Smoking History Smoking history: Never smoked Have you smoked in the past 12 months: No Aproximately how many cigarettes per day: 0 - Social History Usual Living Arrangement: With Spouse ADL: Independent History of Recent Travel: No Home Medications - Allergies Allergies/Adverse Reactions: Allergies Allergy/AdvReac Type Severity Reaction Status Date / Time No Known Drug Allergies Allergy Verified 11/04/17 11:52 - Home Medications Home Medications: Ambulatory Orders Amlodipine Besylate [Norvasc -] 10 mg PO DAILY tablet 06/14/16 Atorvastatin Ca [Lipitor] 10 mg PO HS #30 tablet 06/14/16 Insulin Glargine,Hum.rec.anlog [Lantus (10mL VIAL) -] 15 units SQ HS 07/05/16 Folic Acid/Vit B Complex and C [Piedad-Kelly Tablet] 0.8 mg PO DAILY 04/09/17 Metoprolol Succinate [Toprol XL -] 25 mg PO DAILY 04/09/17 Sevelamer Carbonate [Renvela -] 800 mg PO TID 04/09/17 Losartan Potassium [Cozaar -] 50 mg PO DAILY tablet 04/21/17 Oxycodone HCl 10 mg PO Q8H #20 tablet MDD 3 04/21/17 Sucralfate Oral Suspension [Carafate Oral Suspension -] 1 gm PO QID 30 Days # 120 ml 10/24/17 Zolpidem Tartrate [Ambien] 10 mg PO HS PRN MDD 1 11/04/17 Review of Systems - Review of Systems Constitutional: denies: Fever HENT: denies: Difficult Swallowing Neck: denies: Decreased ROM Cardiovascular: denies: Chest Pain Respiratory: denies: Cough Gastrointestinal: reports: Abdominal Pain, Nausea, Vomiting. denies: Constipation, Diarrhea, Dysphagia, Rectal Bleeding Physical Exam-GI Vital Signs: Vital Signs Temperature 97.6 F 11/24/17 08:00 Pulse Rate 78 11/24/17 11:40 Respiratory Rate 22 11/24/17 08:00 Blood Pressure 133/73 11/24/17 11:40 O2 Sat by Pulse Oximetry (%) 98 11/24/17 02:30 Constitutional: Yes: Well Nourished Eyes: Yes: Conjunctiva Clear HENT: Yes: Atraumatic Neck: Yes: Trachea Midline Cardiovascular: Yes: Regular Rate and Rhythm Respiratory: Yes: CTA Bilaterally Gastrointestinal Inspection: Yes: Distention ...Auscultate: Yes: Normoactive Bowel Sounds ...Palpate: Yes: Soft, Tenderness, Epigastium. No: Firm/Rigid, Guarding, Mass, Pulsatile Mass, Splenomegaly, Tenderness ...Percussion: Yes: Tympanitic Labs: CBC, BMP 11/24/17 09:50 11/24/17 09:50 INR, PTT INR 1.07 (0.82-1.09) 11/23/17 20:20 Problem List - Problems (1) Abdominal pain Assessment/Plan: r/o peptic ulcer disease, gastroparesis R> avoid narcotics consider IV tyelenol Protonix 40mg bid Reglan 5mg 30 min ac Zofran 4mg tid Code(s): R10.9 - UNSPECIFIED ABDOMINAL PAIN Qualifiers: Abdominal location: epigastric Qualified Code(s): R10.13 - Epigastric pain
[2017-11-24] MEDS: ONDANSETRON 4 MG/2 ML VIAL IVPB SCH ×3 (12:28→21:44)
[2017-11-24] MEDS: METOCLOPRAMIDE HCL INJECTION 10 MG/2 ML VIAL IVPB SCH ×2 (12:29→17:50)
--- NOTE | 2017-11-24 12:55 | PN ---
Progress Note, Physician History of Present Illness: Pt seen /examined. Chart reviewed. gi consult noted/ appreciated feels bloated - Current Medication List Current Medications: Active Medications Acetaminophen (Ofirmev Injection -) 1,000 mg IVPB Q6H PRN PRN Reason: PAIN LEVEL 6-10 Amlodipine Besylate (Norvasc -) 10 mg PO DAILY [facility] Last Admin: 11/24/17 10:41 Dose: 10 mg Atorvastatin Calcium (Lipitor -) 10 mg PO HS [facility] Insulin Aspart (Novolog Vial Sliding Scale -) 1 vial SQ BIDAC [facility]; Protocol Insulin Detemir (Levemir Vial) 10 units SQ HS [facility] Losartan Potassium (Cozaar -) 50 mg PO DAILY [facility] Last Admin: 11/24/17 10:41 Dose: 50 mg Metoclopramide HCl (Reglan Injection -) 10 mg IVPB Q8H-IV [facility] Last Admin: 11/24/17 12:29 Dose: 10 mg Metoprolol Succinate (Toprol Xl -) 25 mg PO DAILY [facility] Last Admin: 11/24/17 10:41 Dose: 25 mg Multivit/Ca Carb/B Cmplx/FA/Prenat (Nephro-Kelly -) 1 tablet PO DAILY [facility] Last Admin: 11/24/17 10:41 Dose: 1 tablet Ondansetron HCl (Zofran Injection) 4 mg IVPB Q4H [facility] Stop: 11/25/17 00:31 Last Admin: 11/24/17 12:28 Dose: Not Given Ondansetron HCl (Zofran Injection) 4 mg IVPUSH Q4H PRN PRN Reason: NAUSEA AND/OR VOMITING Pantoprazole Sodium (Protonix Iv) 40 mg IVPUSH BID [facility] Sevelamer Carbonate (Renvela -) 800 mg PO TIDCM [facility] Last Admin: 11/24/17 11:54 Dose: 800 mg Sucralfate (Carafate Oral Suspension -) 1 gm PO QID [facility] Last Admin: 11/24/17 10:41 Dose: 1 gm Zolpidem Tartrate (Ambien -) 10 mg PO HS PRN PRN Reason: INSOMNIA - Objective Vital Signs: Vital Signs Temperature 97.6 F 11/24/17 08:00 Pulse Rate 78 11/24/17 11:40 Respiratory Rate 22 11/24/17 08:00 Blood Pressure 133/73 11/24/17 11:40 O2 Sat by Pulse Oximetry (%) 98 11/24/17 02:30 Constitutional: Yes: Anxious Eyes: Yes: Conjunctiva Clear Neck: Yes: Supple Cardiovascular: Yes: Regular Rate and Rhythm Respiratory: Yes: Diminished Gastrointestinal: Yes: Soft, Tenderness, Epigastrium. No: Other (mild -- no r/ r. bs +) Edema: No Neurological: Yes: Alert Labs: CBC, BMP 11/24/17 09:50 11/24/17 09:50 INR, PTT INR 1.07 (0.82-1.09) 11/23/17 20:20 - ....Imaging Chest X-ray: Report Reviewed Cat Scan: Report Reviewed EKG: Report Reviewed Problem List - Problems (1) Peptic ulcer disease Code(s): K27.9 - PEPTIC ULC, SITE UNSP, UNSP AC OR CHR, W/O HEMOR OR PERF (2) Abdominal pain Code(s): R10.9 - UNSPECIFIED ABDOMINAL PAIN Qualifiers: Abdominal location: epigastric Qualified Code(s): R10.13 - Epigastric pain (3) Diabetes Code(s): E11.9 - TYPE 2 DIABETES MELLITUS WITHOUT COMPLICATIONS Qualifiers: Diabetes mellitus type: type 2 Diabetes mellitus complication status: with unspecified complications (4) ESRD (end stage renal disease) Code(s): N18.6 - END STAGE RENAL DISEASE (5) HTN (hypertension) Code(s): I10 - ESSENTIAL (PRIMARY) HYPERTENSION Qualifiers: Hypertension type: essential hypertension Qualified Code(s): I10 - Essential (primary) hypertension (6) Hyperkalemia Code(s): E87.5 - HYPERKALEMIA (7) S/P CABG (coronary artery bypass graft) Code(s): Z95.1 - PRESENCE OF AORTOCORONARY BYPASS GRAFT Assessment/Plan GI consult noted/ appreciated Agree with D/c narcotics Tylenol prn zofron liquid diet. kayexalate renal consult add basal insulin-- lower dose as pt only lo liquids for now. will follow Discussed with Nursing staff also. will follow
[2017-11-24] MEDS: ACETAMINOPHEN 1000 MG/100 ML VIAL (NON FORMULARY) IVPB PRN ×2 (13:09→22:46)
[2017-11-24] MEDS ORDERED: SODIUM POLYSTYRENE SULFONATE 15 GM/60 ML BOTTLE PO ONE (13:30)
[2017-11-24] MEDS: INSULIN SLIDING SCALE (NOVOLOG) 1 VIAL SQ SCH (16:36)
[2017-11-24] MEDS: INSULIN (LEVEMIR) 100 UNITS/ML UNITS SQ SCH (21:44)
[2017-11-24] MEDS: ATORVASTATIN CA 10 MG TABLET (FP) PO SCH (21:44)
[2017-11-24] MEDS: PANTOPRAZOLE SODIUM 40 MG VIAL IVPUSH SCH (21:44)
[2017-11-24] MEDS ORDERED: PANTOPRAZOLE SODIUM 160 MG in SODIUM CHLORIDE 290 ML IVPB SCH (22:00)
[2017-11-24] MEDS ORDERED: PANTOPRAZOLE SODIUM 40 MG in SODIUM CHLORIDE 100 ML IVPB SCH (22:00)
[2017-11-25] MEDS: ONDANSETRON 4 MG/2 ML VIAL IVPB SCH (00:30)
[2017-11-25] MEDS ORDERED: ONDANSETRON 4 MG/2 ML VIAL IVPUSH PRN (00:31)
[2017-11-25] MEDS: METOCLOPRAMIDE HCL INJECTION 10 MG/2 ML VIAL IVPB SCH ×3 (01:36→17:16)
[2017-11-25] MEDS: INSULIN SLIDING SCALE (NOVOLOG) 1 VIAL SQ SCH ×2 (06:01→17:15)
[2017-11-25] MEDS ORDERED: INSULIN (NOVOLOG) ASPART 100 UNITS/ML 10ML VIAL ONE (06:04)
[2017-11-25] MEDS: ACETAMINOPHEN 1000 MG/100 ML VIAL (NON FORMULARY) IVPB PRN ×2 (08:58→14:46)
[2017-11-25] MEDS: SEVELAMER CARBONATE 800 MG TAB (FP) PO SCH ×3 (08:58→17:16)
--- NOTE | 2017-11-25 09:09 | CON.NEP ---
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 Cardio/Vascular: Yes: CAD (CABG), HTN, Hyperlipdemia Renal/: Yes: Renal Failure, Hemodialysis Musculoskeletal: Yes: Other (peripheral vascular disease) Endocrine: Yes: Diabetes Mellitus - Past Surgical History Past Surgical History: Yes: Amputation, AV Fistula/Graft, CABG - Alcohol/Substance Use Hx Alcohol Use: No History of Substance Use: reports: None - Smoking History Smoking history: Never smoked Have you smoked in the past 12 months: No Aproximately how many cigarettes per day: 0 - Social History Usual Living Arrangement: With Spouse ADL: Independent History of Recent Travel: No Home Medications - Allergies Allergies/Adverse Reactions: Allergies Allergy/AdvReac Type Severity Reaction Status Date / Time No Known Drug Allergies Allergy Verified 11/04/17 11:52 - Home Medications Home Medications: Ambulatory Orders Amlodipine Besylate [Norvasc -] 10 mg PO DAILY tablet 06/14/16 Atorvastatin Ca [Lipitor] 10 mg PO HS #30 tablet 06/14/16 Insulin Glargine,Hum.rec.anlog [Lantus (10mL VIAL) -] 15 units SQ HS 07/05/16 Folic Acid/Vit B Complex and C [Piedad-Kelly Tablet] 0.8 mg PO DAILY 04/09/17 Metoprolol Succinate [Toprol XL -] 25 mg PO DAILY 04/09/17 Sevelamer Carbonate [Renvela -] 800 mg PO TID 04/09/17 Losartan Potassium [Cozaar -] 50 mg PO DAILY tablet 04/21/17 Oxycodone HCl 10 mg PO Q8H #20 tablet MDD 3 04/21/17 Sucralfate Oral Suspension [Carafate Oral Suspension -] 1 gm PO QID 30 Days # 120 ml 10/24/17 Zolpidem Tartrate [Ambien] 10 mg PO HS PRN MDD 1 11/04/17 Review of Systems Unable to obtain ROS, reason: feels better no more vomi Nephrology Consult - Height Height: 5 ft 7 in - Weight Weight: 190 lb - BMI Body Mass Index (BMI): 29.7 - Lab Results CBC,BMP: CBC, BMP 11/24/17 09:50 11/24/17 09:50 Anion Gap: Anion Gap Anion Gap 12 (8-16) 11/24/17 09:50 - Imaging Cat Scan: Report Reviewed - Physical Examination Vital Signs: Vital Signs Temperature 97.7 F 11/25/17 06:00 Pulse Rate 71 11/25/17 06:00 Respiratory Rate 20 11/25/17 06:00 Blood Pressure 127/65 11/25/17 06:00 O2 Sat by Pulse Oximetry (%) 98 11/24/17 16:00 Access for Hemodialysis: AV Graft (rt arm pos bruit) Edema: No Assessment/Plan 57 with DM HTN ESRD PVD CABG PUD GI consult noted Needs reglan 5 TID pre meals Avoid narcotics GES to document degree of gastoparesis HD today Hips 20 NR 3 hr k2 ca2 target 2 kg BFR [address] Villa once tolerating a regular diet call for question s
[2017-11-25] MEDS ORDERED: KETOROLAC TROMETHAMINE 30 MG/1 ML VIAL IM ONE (11:15)
[2017-11-25] MEDS: PANTOPRAZOLE SODIUM 40 MG VIAL IVPUSH SCH ×2 (11:19→22:06)
[2017-11-25] MEDS: VITAMIN B COMP W-C 1 EA TABLET PO SCH (11:19)
[2017-11-25] MEDS: SUCRALFATE 1 GM/10 ML UNIT DOSE CUPS PO SCH ×4 (11:19→22:05)
[2017-11-25] MEDS: metoPROLOL SUCCINATE 25 MG TAB.SR.24H (FP) PO SCH (15:38)
[2017-11-25] MEDS: amLODIPine BESYLATE 10 MG TABLET (FP) PO SCH (15:38)
[2017-11-25] MEDS: LOSARTAN POTASSIUM 50 MG TABLET (FP) PO SCH (15:38)
--- NOTE | 2017-11-25 18:15 | PN ---
Progress Note, Physician History of Present Illness: Pt seen /examined. Currently being dialized complains of pain -- wans morphine no distress - Current Medication List Current Medications: Active Medications Amlodipine Besylate (Norvasc -) 10 mg PO DAILY [facility] Last Admin: 11/25/17 15:38 Dose: Not Given Atorvastatin Calcium (Lipitor -) 10 mg PO HS [facility] Last Admin: 11/24/17 21:44 Dose: 10 mg Insulin [facility]art ([facility] Sliding Scale -) [facility]; [facility] Last Admin: 11/25/17 17:15 Dose: Not Given Insulin Detemir (Levemir Vial) 10 units SQ HS [facility] Last Admin: 11/24/17 21:44 Dose: 10 units Losartan Potassium (Cozaar -) 50 mg PO DAILY [facility] Last Admin: 11/25/17 15:38 Dose: Not Given Metoclopramide HCl (Reglan Injection -) 10 mg IVPB Q8H-IV [facility] Last Admin: 11/25/17 17:16 Dose: Not Given Metoprolol Succinate (Toprol Xl -) 25 mg PO DAILY [facility] Last Admin: 11/25/17 15:38 Dose: Not Given Multivit/Ca Carb/B Cmplx/FA/Prenat (Nephro-Kelly -) 1 tablet PO DAILY [facility] Last Admin: 11/25/17 11:19 Dose: 1 tablet Ondansetron HCl (Zofran Injection) 4 mg IVPUSH Q4H PRN PRN Reason: NAUSEA AND/OR VOMITING Pantoprazole Sodium (Protonix Iv) 40 mg IVPUSH BID [facility] Last Admin: 11/25/17 11:19 Dose: 40 mg Sevelamer Carbonate (Renvela -) 800 mg PO TIDCM [facility] Last Admin: 11/25/17 17:16 Dose: Not Given Sucralfate (Carafate Oral Suspension -) 1 gm PO QID [facility] Last Admin: 11/25/17 17:16 Dose: Not Given Zolpidem Tartrate (Ambien -) 10 mg PO HS PRN PRN Reason: INSOMNIA - Objective Vital Signs: Vital Signs Temperature 98.6 F 11/25/17 14:30 Pulse Rate 74 11/25/17 14:30 Respiratory Rate 20 11/25/17 16:00 Blood Pressure 157/84 11/25/17 14:30 O2 Sat by Pulse Oximetry (%) 96 11/25/17 16:00 Constitutional: Yes: No Distress, Anxious Neck: Yes: Supple Cardiovascular: Yes: Regular Rate and Rhythm Respiratory: Yes: Diminished Gastrointestinal: Yes: Soft, Tenderness, Epigastrium (decreased) Edema: No Neurological: Yes: Alert Psychiatric: Yes: Alert Labs: CBC, BMP 11/24/17 09:50 11/24/17 09:50 INR, PTT INR 1.07 (0.82-1.09) 11/23/17 20:20 Problem List - Problems (1) Peptic ulcer disease Code(s): K27.9 - PEPTIC ULC, SITE UNSP, UNSP AC OR CHR, W/O HEMOR OR PERF (2) Abdominal pain Code(s): R10.9 - UNSPECIFIED ABDOMINAL PAIN Qualifiers: Abdominal location: epigastric Qualified Code(s): R10.13 - Epigastric pain (3) Diabetes Code(s): E11.9 - TYPE 2 DIABETES MELLITUS WITHOUT COMPLICATIONS Qualifiers: Diabetes mellitus type: type 2 Diabetes mellitus complication status: with unspecified complications (4) ESRD (end stage renal disease) Code(s): N18.6 - END STAGE RENAL DISEASE (5) HTN (hypertension) Code(s): I10 - ESSENTIAL (PRIMARY) HYPERTENSION Qualifiers: Hypertension type: essential hypertension Qualified Code(s): I10 - Essential (primary) hypertension (6) Hyperkalemia Code(s): E87.5 - HYPERKALEMIA (7) S/P CABG (coronary artery bypass graft) Code(s): Z95.1 - PRESENCE OF AORTOCORONARY BYPASS GRAFT Assessment/Plan Discussed in detail wants morphine . Explained will make symptoms worse will give toradol for few doses GI to follow will follow discussed also with nursing staff
[2017-11-25] MEDS ORDERED: KETOROLAC TROMETHAMINE 30 MG/1 ML VIAL IM SCH (18:30)
[2017-11-25] MEDS: KETOROLAC TROMETHAMINE 30 MG/1 ML VIAL IM SCH (21:08)
[2017-11-25] MEDS: ATORVASTATIN CA 10 MG TABLET (FP) PO SCH (22:05)
[2017-11-25] MEDS: INSULIN (LEVEMIR) 100 UNITS/ML UNITS SQ SCH (22:05)
[2017-11-25] MEDS: ZOLPIDEM TARTRATE 5 MG TABLET PO PRN (22:05)
[2017-11-26] MEDS: METOCLOPRAMIDE HCL INJECTION 10 MG/2 ML VIAL IVPB SCH ×2 (03:38→09:53)
[2017-11-26] MEDS: KETOROLAC TROMETHAMINE 30 MG/1 ML VIAL IM SCH ×3 (05:56→21:37)
[2017-11-26] MEDS: INSULIN SLIDING SCALE (NOVOLOG) 1 VIAL SQ SCH ×2 (06:01→17:23)
[2017-11-26] MEDS: SEVELAMER CARBONATE 800 MG TAB (FP) PO SCH ×3 (09:03→17:23)
[2017-11-26] MEDS: SUCRALFATE 1 GM/10 ML UNIT DOSE CUPS PO SCH ×4 (09:52→21:36)
[2017-11-26] MEDS: PANTOPRAZOLE SODIUM 40 MG VIAL IVPUSH SCH (09:52)
[2017-11-26] MEDS: LOSARTAN POTASSIUM 50 MG TABLET (FP) PO SCH (09:52)
[2017-11-26] MEDS: amLODIPine BESYLATE 10 MG TABLET (FP) PO SCH (09:52)
[2017-11-26] MEDS: metoPROLOL SUCCINATE 25 MG TAB.SR.24H (FP) PO SCH (09:53)
[2017-11-26] MEDS: VITAMIN B COMP W-C 1 EA TABLET PO SCH (09:54)
--- NOTE | 2017-11-26 10:24 | PN ---
Progress Note, Physician Chief Complaint: c/o abdominal pain nausea+ - Current Medication List Current Medications: Active Medications Amlodipine Besylate (Norvasc -) 10 mg PO DAILY [facility] Last Admin: 11/26/17 09:52 Dose: 10 mg Atorvastatin Calcium (Lipitor -) 10 mg PO HS [facility] Last Admin: 11/25/17 22:05 Dose: 10 mg Insulin Aspart ([facility]ial Sliding Scale -) [facility] Last Admin: 11/26/17 06:01 Dose: 4 units Insulin Detemir (Levemir Vial) 10 units SQ HS [facility] Last Admin: 11/25/17 22:05 Dose: 10 units Ketorolac Tromethamine (Toradol Injection -) 30 mg IM TID [facility] Stop: 11/30/17 21:59 Last Admin: 11/26/17 05:56 Dose: 30 mg Losartan Potassium (Cozaar -) 50 mg PO DAILY [facility] Last Admin: 11/26/17 09:52 Dose: 50 mg Metoclopramide HCl (Reglan Injection -) 10 mg IVPB Q8H-IV [facility] Last Admin: 11/26/17 09:53 Dose: 10 mg Metoprolol Succinate (Toprol Xl -) 25 mg PO DAILY [facility] Last Admin: 11/26/17 09:53 Dose: 25 mg Multivit/Ca Carb/B Cmplx/FA/Prenat (Nephro-Kelly -) 1 tablet PO DAILY [facility] Last Admin: 11/26/17 09:54 Dose: 1 tablet Ondansetron HCl (Zofran Injection) 4 mg IVPUSH Q4H PRN PRN Reason: NAUSEA AND/OR VOMITING Pantoprazole Sodium (Protonix Iv) 40 mg IVPUSH BID [facility] Last Admin: 11/26/17 09:52 Dose: 40 mg Sevelamer Carbonate (Renvela -) 800 mg PO TIDCM [facility] Last Admin: 11/26/17 09:03 Dose: 800 mg Sucralfate (Carafate Oral Suspension -) 1 gm PO QID [facility] Last Admin: 11/26/17 09:52 Dose: 1 gm Zolpidem Tartrate (Ambien -) 10 mg PO HS PRN PRN Reason: INSOMNIA Last Admin: 11/25/17 22:05 Dose: 10 mg - Objective Vital Signs: Vital Signs Temperature 99.2 F 11/26/17 09:46 Pulse Rate 73 05/30/18 09:46 Respiratory Rate 20 11/26/17 09:46 Blood Pressure 112/54 11/26/17 09:46 O2 Sat by Pulse Oximetry (%) 98 11/26/17 06:00 Constitutional: Yes: No Distress Cardiovascular: Yes: Regular Rate and Rhythm Respiratory: Yes: Diminished Gastrointestinal: Yes: Normal Bowel Sounds, Soft, Abdomen, Obese, Tenderness Edema: No Labs: CBC, BMP 11/24/17 09:50 11/24/17 09:50 INR, PTT INR 1.07 (0.82-1.09) 11/23/17 20:20 Problem List - Problems (1) Abdominal pain Code(s): R10.9 - UNSPECIFIED ABDOMINAL PAIN Qualifiers: Abdominal location: epigastric Qualified Code(s): R10.13 - Epigastric pain (2) Diabetes Code(s): E11.9 - TYPE 2 DIABETES MELLITUS WITHOUT COMPLICATIONS Qualifiers: Diabetes mellitus type: type 2 Diabetes mellitus complication status: with unspecified complications (3) ESRD (end stage renal disease) Code(s): N18.6 - END STAGE RENAL DISEASE Assessment/Plan Discussed in detail wants morphine . Explained will make symptoms worse GI -- will not repeat EGD at this time check stool guaic will follow discussed also with nursing staff
[2017-11-26] MEDS: METOCLOPRAMIDE HCL 10 MG TABLET (FP) PO SCH ×2 (12:59→17:23)
[2017-11-26] MEDS: ZOLPIDEM TARTRATE 5 MG TABLET PO PRN (21:36)
[2017-11-26] MEDS: PANTOPRAZOLE 40 MG TABLET (FP) PO SCH (21:47)
[2017-11-26] MEDS: INSULIN (LEVEMIR) 100 UNITS/ML UNITS SQ SCH (22:00)
[2017-11-26] MEDS: ATORVASTATIN CA 10 MG TABLET (FP) PO SCH (22:50)
[2017-11-27] MEDS: KETOROLAC TROMETHAMINE 30 MG/1 ML VIAL IM SCH ×2 (06:26→15:03)
[2017-11-27] MEDS: INSULIN SLIDING SCALE (NOVOLOG) 1 VIAL SQ SCH ×2 (06:27→17:54)
[2017-11-27] MEDS: METOCLOPRAMIDE HCL 10 MG TABLET (FP) PO SCH ×3 (06:28→17:55)
[2017-11-27] MEDS ORDERED: INSULIN (LEVEMIR) 100 UNITS/ML UNITS SQ ONE (08:19)
[2017-11-27] MEDS ORDERED: INSULIN (NOVOLOG) ASPART 100 UNITS/ML 10ML VIAL ONE ×2 (08:19→17:53)
[2017-11-27] MEDS ORDERED: PT OWN MED DRAWER 7, Y5N ONE ×2 (08:20→10:47)
[2017-11-27] MEDS: SEVELAMER CARBONATE 800 MG TAB (FP) PO SCH ×3 (08:29→17:55)
--- NOTE | 2017-11-27 10:14 | PN ---
Progress Note, Physician Chief Complaint: see dc summary - Current Medication List Current Medications: Active Medications Amlodipine Besylate (Norvasc -) 10 mg PO DAILY [facility] Last Admin: 11/26/17 09:52 Dose: 10 mg Atorvastatin Calcium (Lipitor -) 10 mg PO HS [facility] Last Admin: 11/26/17 22:50 Dose: 10 mg Insulin Aspart (Novolog Vial Sliding Scale -) [facility]; Protocol Last Admin: 11/27/17 06:27 Dose: 2 units Insulin Detemir (Levemir Vial) 10 units SQ HS [facility] Last Admin: 11/26/17 22:00 Dose: Not Given Ketorolac Tromethamine (Toradol Injection -) 30 mg IM TID [facility] Stop: 11/30/17 21:59 Last Admin: 11/27/17 06:26 Dose: 30 mg Losartan Potassium (Cozaar -) 50 mg PO DAILY [facility] Last Admin: 11/26/17 09:52 Dose: 50 mg Metoclopramide HCl (Reglan -) 10 mg PO TIDAC [facility] Last Admin: 11/27/17 06:28 Dose: 10 mg Metoprolol Succinate (Toprol Xl -) 25 mg PO DAILY [facility] Last Admin: 11/26/17 09:53 Dose: 25 mg Multivit/Ca Carb/B Cmplx/FA/Prenat (Nephro-Kelly -) 1 tablet PO DAILY [facility] Last Admin: 11/26/17 09:54 Dose: 1 tablet Ondansetron HCl (Zofran Injection) 4 mg IVPUSH Q4H PRN PRN Reason: NAUSEA AND/OR VOMITING Pantoprazole Sodium (Protonix -) 40 mg PO BID [facility] Last Admin: 11/26/17 21:47 Dose: 40 mg Sevelamer Carbonate (Renvela -) 800 mg PO TIDCM [facility] Last Admin: 11/27/17 08:29 Dose: 800 mg Sucralfate (Carafate Oral Suspension -) 1 gm PO QID [facility] Last Admin: 11/26/17 21:36 Dose: 1 gm Zolpidem Tartrate (Ambien -) 10 mg PO HS PRN PRN Reason: INSOMNIA Last Admin: 11/26/17 21:36 Dose: 10 mg - Objective Vital Signs: Vital Signs Temperature 98.8 F 11/27/17 06:00 Pulse Rate 80 11/27/17 06:00 Respiratory Rate 20 11/27/17 06:00 Blood Pressure 148/73 11/27/17 06:00 O2 Sat by Pulse Oximetry (%) 96 11/27/17 06:00 Labs: CBC, BMP 11/24/17 09:50 11/24/17 09:50 INR, PTT INR 1.07 (0.82-1.09) 11/23/17 20:20 Problem List - Problems (1) Abdominal pain Code(s): R10.9 - UNSPECIFIED ABDOMINAL PAIN Qualifiers: Abdominal location: epigastric Qualified Code(s): R10.13 - Epigastric pain (2) Diabetes Code(s): E11.9 - TYPE 2 DIABETES MELLITUS WITHOUT COMPLICATIONS Qualifiers: Diabetes mellitus type: type 2 Diabetes mellitus complication status: with unspecified complications (3) ESRD (end stage renal disease) Code(s): N18.6 - END STAGE RENAL DISEASE
--- NOTE | 2017-11-27 10:36 | DS ---
Physical Examination Vital Signs: Vital Signs Temperature 98.8 F 11/27/17 06:00 Pulse Rate 80 11/27/17 06:00 Respiratory Rate 20 11/27/17 06:00 Blood Pressure 148/73 11/27/17 06:00 O2 Sat by Pulse Oximetry (%) 96 11/27/17 06:00 Constitutional: Yes: No Distress Cardiovascular: Yes: Regular Rate and Rhythm Respiratory: Yes: Diminished Gastrointestinal: Yes: Normal Bowel Sounds, Soft, Abdomen, Obese, Tenderness, Epigastrium. No: Distention Edema: No Labs: CBC, BMP 11/24/17 09:50 11/24/17 09:50 Discharge Summary Reason For Visit: abd pain Current Active Problems Peptic ulcer disease (Acute) Hospital Course: admitted for abdominal pain Similar pain to last admission-- found to have multiple peptic ulcers at that time has gastroparesis no blood in stool seen by GI this admission-- no repeat EGD recommended Pt advised to stop narcotic use on Protonix BID, Sucralfate pt ate soft diet today without any problem per staff stable for dc today after dialysis Condition: Stable - Instructions Diet, Activity, Other Instructions: absolutely no controlled substances for pain Referrals: Singh Sandra MD [Primary Care Provider] - Disposition: HOME - Home Medications Comprehensive Discharge Medication List: Ambulatory Orders Amlodipine Besylate [Norvasc -] 10 mg PO DAILY tablet 06/14/16 Atorvastatin Ca [Lipitor] 10 mg PO HS #30 tablet 06/14/16 Insulin Glargine,Hum.rec.anlog [Lantus (10mL VIAL) -] 15 units SQ HS 07/05/16 Folic Acid/Vit B Complex and C [Piedad-Kelly Tablet] 0.8 mg PO DAILY 04/09/17 Metoprolol Succinate [Toprol XL -] 25 mg PO DAILY 04/09/17 Sevelamer Carbonate [Renvela -] 800 mg PO TID 04/09/17 Losartan Potassium [Cozaar -] 50 mg PO DAILY tablet 04/21/17 Sucralfate Oral Suspension [Carafate Oral Suspension -] 1 gm PO QID 30 Days # 120 ml 10/24/17 Zolpidem Tartrate [Ambien] 10 mg PO HS PRN MDD 1 11/04/17 Metoclopramide HCl [Reglan -] 10 mg PO TIDAC #90 tablet 11/27/17 Pantoprazole Sodium [Protonix -] 40 mg PO BID #60 tablet.ec 11/27/17
[2017-11-27] MEDS: PANTOPRAZOLE 40 MG TABLET (FP) PO SCH (10:42)
[2017-11-27] MEDS: metoPROLOL SUCCINATE 25 MG TAB.SR.24H (FP) PO SCH (10:42)
[2017-11-27] MEDS: SUCRALFATE 1 GM/10 ML UNIT DOSE CUPS PO SCH ×3 (10:42→17:55)
[2017-11-27] MEDS: LOSARTAN POTASSIUM 50 MG TABLET (FP) PO SCH (10:42)
[2017-11-27] MEDS: amLODIPine BESYLATE 10 MG TABLET (FP) PO SCH (10:42)
[2017-11-27] MEDS: VITAMIN B COMP W-C 1 EA TABLET PO SCH (10:47)
[2017-11-27 17:06] VITALS: BP 117/56; PULSE 80; TEMP 98.2
[2017-11-28 00:07] LABS: HBSAG SCREEN Negative (Negative); HEP A AB, IGM Negative (Negative); HEP B CORE AB, TOT Negative (Negative)
== END 2017-11-27 18:31 | disposition home or self-care (01) | DRG 73 ==
LOC: JER 19:48 → JERBED 11-24 00:05 → J8W 11-24 02:19 → OBSVTOIN 11-26 10:27
PROVIDERS: ADMIT Internal Medicine; ATTEND Internal Medicine
DX: E11.43 Type 2 diabetes mellitus with diabetic autonomic (poly)neuropathy (principal); N18.6 End stage renal disease; K27.3 Acute peptic ulcer, site unspecified, without hemorrhage or perforation; I12.0 Hypertensive chronic kidney disease with stage 5 chronic kidney disease or end stage renal disease; K31.84 Gastroparesis; E11.22 Type 2 diabetes mellitus with diabetic chronic kidney disease; E87.5 Hyperkalemia; D63.1 Anemia in chronic kidney disease; Z99.2 Dependence on renal dialysis; Z95.1 Presence of aortocoronary bypass graft; Z79.1 Long term (current) use of non-steroidal anti-inflammatories (NSAID); I25.10 Atherosclerotic heart disease of native coronary artery without angina pectoris; E78.5 Hyperlipidemia, unspecified; G62.9 Polyneuropathy, unspecified
CPT/HCPCS: 36415; 71045-TC-FY; 74176-TC; 80048; 80053; 82150; 82550; 82962; 83690; 83735; 84100; 84484; 85025; 85610; 85730; 86704; 86706; 86708; 87340; 93005; 93010; 99283-25; G0378; J0131

== ENCOUNTER 2018-04-27 15:16 | Inpatient (IN) | payer OTHER ==
--- NOTE | 2018-04-27 15:47 | PDOC ---
Rapid Medical Evaluation Chief Complaint: Wound Time Seen by Provider: 04/27/18 15:40 Medical Evaluation: Allergies Allergy/AdvReac Type Severity Reaction Status Date / Time No Known Drug Allergies Allergy Verified 11/04/17 11:52 Vital Signs Temp Pulse Resp BP Pulse Ox 97.9 F 90 18 154/45 L 97 04/27/18 15:31 04/27/18 15:31 04/27/18 15:31 04/27/18 15:31 04/27/18 15:31 04/27/18 15:43 I have performed a brief in-person evaluation of this patient. The patient presents with a chief complaint of: sent in my associate web developer Dr. Carmichael for admission for ulcers and cellultitis of left hand. referral brought in by patient indicates Dr. Carmichael spoke to Dr. Villa and Bernadette and agrees to admit patient under Dr. Thorpe. Patient with h/o IDDM Pertinent physical exam findings: ulcer to IP joint of thumb and tip of 4th and 5th fingers of left hand I have ordered the following: CBC, CMP, ESR, X-ray of left hand, blood culture The patient will proceed to the ED for further evaluation. Discharge Disposition - Diagnosis Cellulitis of left hand - Referrals - Patient Instructions - Post Discharge Activity
--- NOTE | 2018-04-27 15:54 | PDOC ---
History of Present Illness - General Chief Complaint: Wound Stated Complaint: LESION ON FINGERS Time Seen by Provider: 04/27/18 15:40 History Source: Patient Exam Limitations: No Limitations - History of Present Illness Initial Comments: 04/27/18 15:[address] sandra for admission for cellulitis of left hand.Was seen in the office today and vascualr compromise worsening to left hand. Patient has peripheral vascular disease and arterial occlusions. + ESRD with shunt failures / arterial compromise. Had dialysis fistula placed in his left upper arm which has caused multiple complications and occlusions of circulation of fingers. Patient has 3 different ulcerations of left hand , one to fourth digit tip, 1 to index finger, 1 to lateral aspect of left thumb. Patient denies pain at animal's sensation to that hand. Denies fever was seen by Dr. Sandra in today and sent to emergency department for admission. 04/27/18 16:33 04/27/18 16:38 Timing/Duration: unsure Severity: moderate, severe Associated Symptoms: reports: denies symptoms. denies: fever/chills Past History - Travel Traveled outside of the country in the last 30 days: No Close contact w/someone who was outside of country & ill: No - Past Medical History Allergies/Adverse Reactions: Allergies Allergy/AdvReac Type Severity Reaction Status Date / Time No Known Drug Allergies Allergy Verified 11/04/17 11:52 Home Medications: Ambulatory Orders Amlodipine Besylate [Norvasc -] 10 mg PO DAILY tablet 06/14/16 Atorvastatin Ca [Lipitor] 10 mg PO HS #30 tablet 06/14/16 Insulin Glargine,Hum.rec.anlog [Lantus (10mL VIAL) -] 15 units SQ HS 07/05/16 Folic Acid/Vit B Complex and C [Piedad-Kelly Tablet] 0.8 mg PO DAILY 04/09/17 Metoprolol Succinate [Toprol XL -] 25 mg PO DAILY 04/09/17 Sevelamer Carbonate [Renvela -] 800 mg PO TID 04/09/17 Losartan Potassium [Cozaar -] 50 mg PO DAILY tablet 04/21/17 Zolpidem Tartrate [Ambien] 10 mg PO HS PRN MDD 1 11/04/17 Pantoprazole Sodium [Protonix -] 40 mg PO BID #60 tablet.ec 11/27/17 Metoclopramide HCl [Reglan -] 10 mg PO TIDAC #90 tablet 12/30/17 Sucralfate Oral Suspension [Carafate Oral Suspension -] 1 gm PO QID 30 Days # 120 ml 12/30/17 Anemia: No Cardiac Disorders: Yes COPD: No DVT: No Diabetes: Yes Dialysis: Yes (TUES,THR,SAT RT ARM DIALYSIS ACCESS) GI Disorders: Yes HTN: Yes Hypercholesterolemia: Yes - Surgical History Cardiac Surgery: Yes (CABG) Orthopedic Surgery: Yes (OR debridement left foot wound) - Immunization History Immunization Up to Date: No - Suicide/Smoking/Psychosocial Hx Smoking Status: No Smoking History: Never smoked Have you smoked in the past 12 months: No Number of Cigarettes Smoked Daily: 0 Hx Alcohol Use: No Drug/Substance Use Hx: No Substance Use Type: None, Alcohol Hx Substance Use Treatment: No Review of Systems - Review of Systems Able to Perform ROS?: Yes Is the patient limited [place] Islander proficient: Yes Constitutional: Yes: Symptoms Reported, See HPI, Malaise HEENTM: No: Symptoms Reported Respiratory: No: Symptoms reported Musculoskeletal: Yes: Symptoms Reported, Joint Pain, Joint Swelling, Joint Stiffness Integumentary: Yes: Symptoms Reported, See HPI, Lesions, Pallor (poor cAP REFILL ) All Other Systems: Reviewed and Negative *Physical Exam - Vital Signs Last Vital Signs Temp Pulse Resp BP Pulse Ox 97.9 F 90 18 154/45 L 97 04/27/18 15:31 04/27/18 15:31 04/27/18 15:31 04/27/18 15:31 04/27/18 15:31 - Physical Exam General Appearance: Yes: Nourished, Appropriately Dressed, Apparent Distress, Mild Distress HEENT: positive: ALEXANDRO, Normal ENT Inspection, TMs Normal, Pharynx Normal Neck: positive: Supple. negative: Tender Respiratory/Chest: positive: Lungs Clear, Normal Breath Sounds. negative: Chest Tender Gastrointestinal/Abdominal: positive: Soft Musculoskeletal: positive: Normal Inspection. negative: Vertebral Tenderness Extremity: positive: Normal Range of Motion, Other (range of motion is intact however patient has some mild weakness due to peripheral vascular changes). negative: Normal Capillary Refill (>2sec), Normal Inspection, Tender Integumentary: positive: Pale, Cold, Other (distal left 4th digit, distal index finger, lateral thumb). negative: Swelling Neurologic: positive: clinical trials data coordinator II-XII NML intact, Fully Oriented, Alert, Normal Mood/ Affect, Normal Response, Motor Strength /5 Medical Decision Making - Medical Decision Making 04/27/18 17:04 Dr. Gonzalez return phone call, understands patient is here for evaluation vascular consult. Patient has been admitted to [facility] floor, has been taken to ultrasound for bilateral Doppler arterial studies of hands. Understands plan. 04/27/18 18:42 Dr Sandra confirmed admission but request admission PMD as Dr Shanae Villa. Order was changed. obtaining labs, and waits bed placement. patient and family updated to plans *DC/Admit/Observation/Transfer Diagnosis at time of Disposition: Cellulitis of left hand - Discharge Dispostion Condition at time of disposition: Stable Decision to Admit order: Yes - Referrals - Patient Instructions - Post Discharge Activity
[2018-04-27] MEDS ORDERED: oxyCODONE HCL 5 MG TABLET PO PRN (18:57)
[2018-04-27] MEDS ORDERED: ACETAMINOPHEN 325 MG TABLET (FP) PO PRN (18:57)
[2018-04-27] MEDS ORDERED: VANCOMYCIN 1 GRAM (PRE-DOCKED) 1,000 MG/250 ML BAG IVPB ONE ×2 (19:00→22:56)
[2018-04-27] MEDS ORDERED: PIPERACILLIN/TAZOB 3.375 GM 3.375 GM in DEXTROSE 5%-WATER - 50 ML IVPB ONE (19:15)
[2018-04-27 19:30] LABS: BASO % 0.4 % (0-2.0); EOS % 1.3 % (0-4.5); HEMATOCRIT 34.1 % (35.4-49); HEMOGLOBIN 11.4 GM/dL (11.7-16.9); MCH 30.4 pg (25.7-33.7); MCHC 33.4 g/dl (32.0-35.9); MEAN CELL VOLUME 90.8 fl (80-96); MEAN PLT VOLUME 10.3 fl (7.5-11.1); MONO % 10.9 % (3.8-10.2); NEUT % 65.4 % (42.8-82.8); PLATELET COUNT 175 K/MM3 (134-434); RBC 3.75 M/mm3 (4.00-5.60); RDW 13.5 % (11.9-15.9); WHITE BLOOD COUNT 6.9 K/mm3 (4.0-10.0)
[2018-04-27 22:12] LABS: ERYTHROCYTE SEDIMENTATION RATE 106 mm/hr (0-20)
[2018-04-27] MEDS ORDERED: GABAPENTIN 100 MG CAPSULE (FP) ONE (22:56)
[2018-04-27] MEDS ORDERED: PIPERACILLIN/TAZOB 3.375 GM 3.375 GM/50 ML BAG IVPB ONE (22:56)
[2018-04-27] MEDS ORDERED: ATORVASTATIN CA 40 MG TABLET (FP) ONE (22:56)
[2018-04-27] MEDS: ATORVASTATIN CA 40 MG TABLET (FP) PO SCH (23:22)
[2018-04-27] MEDS: GABAPENTIN 100 MG CAPSULE (FP) PO SCH (23:22)
[2018-04-28 07:11] LABS: ALBUMIN 3.5 g/dl (3.4-5.0); ALK PHOS 196 U/L (45-117); ANION GAP 16 MMOL/L (8-16); BILIRUBIN,TOTAL 0.4 mg/dL (0.2-1); CHLORIDE 98 mmol/L (98-107); CO2 18 mmol/L (21-32); POTASSIUM 5.1 mmol/L (3.5-5.1); SGOT/AST 15 U/L (15-37); SGPT/ALT 32 U/L (13-61); SODIUM 132 mmol/L (136-145); TOT PROT 7.7 g/dl (6.4-8.2)
[2018-04-28 07:24] LABS: GLUCOSE,RANDOM 349 mg/dL (74-106)
[2018-04-28 07:25] LABS: BLOOD UREA NITROGEN 110 mg/dL (7-18); CREATININE 11.2 mg/dL (0.55-1.3)
--- NOTE | 2018-04-28 10:31 | CONSULT ---
Consult - History of Present Illness History of Present Illness: 57 year old man with ESRD on HD with right upper arm fistula. He has had problems with distal ischemia of the right hand not related to steal in the past and required finger amputation. He now [presents with left finger wounds, numbness and pain. He has had access in the left arm in the past but no current AV fistula. 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: Peripheral Neuropathy Cardio/Vascular: Yes: CAD (CABG), HTN, Hyperlipdemia Renal/: Yes: Renal Failure, Hemodialysis Musculoskeletal: Yes: Other (peripheral vascular disease) Endocrine: Yes: Diabetes Mellitus - Past Surgical History Past Surgical History: Yes: Amputation, AV Fistula/Graft, CABG - Alcohol/Substance Use Hx Alcohol Use: No History of Substance Use: reports: None - Smoking History Smoking history: Never smoked Have you smoked in the past 12 months: No Aproximately how many cigarettes per day: 0 - Social History Usual Living Arrangement: With Spouse ADL: Independent History of Recent Travel: No Home Medications - Allergies Allergies/Adverse Reactions: Allergies Allergy/AdvReac Type Severity Reaction Status Date / Time No Known Drug Allergies Allergy Verified 11/04/17 11:52 - Home Medications Home Medications: Ambulatory Orders Albuterol 2.5/Ipratropium 0.5 [Duoneb -] 1 amp NEB TID 04/27/18 Aspirin [Ecotrin] 81 mg PO DAILY 04/27/18 Atorvastatin Ca [Lipitor] 40 mg PO HS 04/27/18 Esomeprazole Magnesium [Nexium 24Hr] 40 mg PO DAILY 04/27/18 Fluticasone/Vilanterol [Breo Ellipta 200-25 Mcg INH] 1 each IH DAILY 04/27/18 Folic Acid/Vit B Complex and C [Renal-Kelly Tablet] 0.8 mg PO DAILY 04/27/18 Gabapentin [Neurontin -] 100 mg PO DAILY 04/27/18 Loratadine [Claritin] 10 mg PO DAILY 04/27/18 Midodrine HCl 10 mg PO TID 04/27/18 Olopatadine HCl [Pataday] 1 drop OU DAILY 04/27/18 Omeprazole 40 mg PO DAILY 04/27/18 Oxycodone HCl/Acetaminophen [Percocet 10-325 mg Tablet] 1 each PO BID 04/27/18 Sevelamer Carbonate [Renvela] 1,600 mg PO TID 04/27/18 Zolpidem Tartrate [Ambien] 10 mg PO DAILY 04/27/18 Physical Exam Vital Signs: Vital Signs Temperature 97.5 F L 04/28/18 06:57 Pulse Rate 74 04/28/18 06:57 Respiratory Rate 20 04/28/18 06:57 Blood Pressure 166/80 04/28/18 06:57 O2 Sat by Pulse Oximetry (%) 98 04/27/18 21:00 Constitutional: Yes: No Distress Extremities: Yes: Other (Left hand warm. 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 Small dry ulcer/eschar on 1st, 3rd and 5th fingers. No purulence.) Labs: CBC, BMP 04/27/18 17:00 04/28/18 06:20 Imaging - Results Ultrasound: Image Reviewed (Diominished arterial flow in both forearms. No pressures done.) Problem List - Problems (1) Stenosis of artery of upper extremity Assessment/Plan: Chronic distal arterial disease related to DM, atherosclerosis, ESRD with new wounds on left hand. Duplex suggests both proximal and distal arterial disease although exam shows good flow to level of antecubital fossa. Will need additional imaging to see if there are any treatable lesions in the upper extremity arteries. Code(s): I70.208 - UNSP ATHSCL [place] ARTERIES OF EXTREMITIES, OTH EXTREMITY
--- NOTE | 2018-04-28 12:23 | PN ---
Progress Note (short form) - Note Progress Note: pt seen/ examined. chart reviewed case was discussed with Dr. Sandra just had cta done denies pain Vital Signs Temp 97.5 F L 04/28/18 06:57 Pulse 74 04/28/18 06:57 Resp 20 04/28/18 06:57 BP 166/80 04/28/18 06:57 Pulse Ox 98 04/27/18 21:00 Intake & Output 04/27/18 04/28/18 04/28/18 23:59 11:59 23:59 Weight 195 lb Other: Height 5 ft 7 in Body Mass Index (BMI) 30.5 Weight Measurement Method Est/Stated by Patient Active Medications Acetaminophen (Tylenol -) 325 mg PO Q3H PRN PRN Reason: PAIN LEVEL 1-5 Aspirin (Ecotrin -) 81 mg PO DAILY [facility] Atorvastatin Calcium (Lipitor -) 40 mg PO HS [facility] Last Admin: 04/27/18 23:22 Dose: 40 mg Gabapentin (Neurontin -) 100 mg PO HS [facility] Last Admin: 04/27/18 23:22 Dose: 100 mg Piperacillin Sod/Tazobactam (Sod 3.375 gm/ Dextrose) 50 mls @ 100 mls/hr IVPB Q12H [facility] Insulin Aspart (Novolog Mix 70/30 Vial) 20 units SQ BIDAC [facility] Insulin Detemir (Levemir Vial) 30 units SQ DAILY@0700 [facility] Midodrine (Proamatine -) 10 mg PO DAILY [facility] Oxycodone HCl (Roxicodone -) 10 mg PO Q3H PRN PRN Reason: PAIN LEVEL 1-5 Pantoprazole Sodium (Protonix -) 40 mg PO DAILY [facility] Sevelamer Carbonate (Renvela -) 1,600 mg PO TIDCM [facility] CBC, BMP 04/27/18 17:00 04/28/18 06:20 Physical exam awake Comfortable neck- supple lungs- diminished at bases cvs- s1, s2 rrr abd - soft ext- left hands fingers ulcerations 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 Uncontrolled diabetes esrd- hd Cta done will review report when available vascular on case pain under control dialysis to b done today monitor bgm will follow Problem List - Problems (1) Cellulitis of left hand Code(s): L03.114 - CELLULITIS OF LEFT UPPER LIMB (2) Stenosis of artery of upper extremity Code(s): I70.208 - UNSP ATHSCL [place] ARTERIES OF EXTREMITIES, OTH EXTREMITY (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
[2018-04-28] MEDS: SEVELAMER CARBONATE 800 MG TAB (FP) PO SCH ×3 (12:47→17:50)
[2018-04-28] MEDS: INSULIN (NOVOLOG MIX 70/30) 100 UNITS/ML MDV SQ SCH ×3 (12:48→17:54)
[2018-04-28] MEDS: INSULIN (LEVEMIR) 100 UNITS/ML UNITS SQ SCH ×2 (12:48→12:51)
[2018-04-28] MEDS: MIDODRINE HCL 5 MG TABLET PO SCH (12:52)
[2018-04-28] MEDS: PANTOPRAZOLE 40 MG TABLET (FP) PO SCH (12:52)
[2018-04-28] MEDS: ASPIRIN COATED 81 MG TABLET.EC PO SCH (12:52)
[2018-04-28 17:03] VITALS: BMI 32.7
[2018-04-28] MEDS ORDERED: FLU VACCINE QUAD 60 MCG/0.5 ML (MDV 18-19) IM ONE (17:03)
[2018-04-28] MEDS ORDERED: PNEUMOC 13-VAL CONJ-DIP CRM/PF 0.5 ML DISP.SYRIN IM ONE (17:03)
[2018-04-28] MEDS ORDERED: PIPERACILLIN/TAZOBACTAM 2.25 GM VIAL IVPB ONE (19:57)
[2018-04-28] MEDS ORDERED: DEXTROSE 5%-WATER - 50 ML IVPB ONE (19:57)
[2018-04-28] MEDS: PIPERACILLIN/TAZOB 2.25 GM 2.25 GM in DEXTROSE 5%-WATER - 50 ML IVPB SCH (20:04)
[2018-04-28] MEDS: GABAPENTIN 100 MG CAPSULE (FP) PO SCH (21:07)
[2018-04-28] MEDS: ATORVASTATIN CA 40 MG TABLET (FP) PO SCH (21:07)
[2018-04-28] MEDS ORDERED: INSULIN (NOVOLOG) ASPART 100 UNITS/ML 10ML VIAL ONE (21:18)
[2018-04-28] MEDS ORDERED: INSULIN (NOVOLOG) ASPART 100 UNITS/ML 10ML VIAL SQ ONE (22:30)
[2018-04-28] MEDS: INSULIN SLIDING SCALE (NOVOLOG) 1 VIAL SQ SCH (23:11)
[2018-04-29] MEDS ORDERED: PIPERACILLIN/TAZOBACTAM 2.25 GM VIAL IVPB ONE ×3 (01:05→17:40)
[2018-04-29] MEDS ORDERED: DEXTROSE 5%-WATER - 50 ML IVPB ONE ×3 (01:05→17:40)
[2018-04-29] MEDS: PIPERACILLIN/TAZOB 2.25 GM 2.25 GM in DEXTROSE 5%-WATER - 50 ML IVPB SCH ×3 (02:45→17:45)
[2018-04-29] MEDS: INSULIN SLIDING SCALE (NOVOLOG) 1 VIAL SQ SCH ×4 (06:11→22:23)
[2018-04-29] MEDS: INSULIN (LEVEMIR) 100 UNITS/ML UNITS SQ SCH (06:50)
[2018-04-29] MEDS ORDERED: INSULIN (NOVOLOG) ASPART 100 UNITS/ML 10ML VIAL ONE (07:26)
[2018-04-29] MEDS: INSULIN (NOVOLOG MIX 70/30) 100 UNITS/ML MDV SQ SCH ×2 (07:33→17:29)
[2018-04-29] MEDS ORDERED: INSULIN (NOVOLOG MIX 70/30) 100 UNITS/ML MDV SQ ONE (07:39)
[2018-04-29] MEDS: SEVELAMER CARBONATE 800 MG TAB (FP) PO SCH ×3 (08:18→17:29)
--- NOTE | 2018-04-29 09:02 | PN ---
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 Cardio/Vascular: Yes: CAD (CABG), HTN, Hyperlipdemia Renal/: Yes: Renal Failure, Hemodialysis Musculoskeletal: Yes: Other (peripheral vascular disease) Endocrine: Yes: Diabetes Mellitus - Past Surgical History Past Surgical History: Yes: Amputation rt hand finger , AV Fistula/Graft, CABG - Alcohol/Substance Use Hx Alcohol Use: No History of Substance Use: reports: None - Smoking History Smoking history: Never smoked Have you smoked in the past 12 months: No Aproximately how many cigarettes per day: 0 - Social History Usual Living Arrangement: With Spouse ADL: Independent History of Recent Travel: No Home Medications - Allergies Allergies/Adverse Reactions: Allergies Allergy/AdvReac Type Severity Reaction Status Date / Time No Known Drug Allergies Allergy Verified 11/04/17 11:52 - Home Medications Home Medications: Ambulatory Orders Albuterol 2.5/Ipratropium 0.5 [Duoneb -] 1 amp NEB TID 04/27/18 Aspirin [Ecotrin] 81 mg PO DAILY 04/27/18 Atorvastatin Ca [Lipitor] 40 mg PO HS 04/27/18 Esomeprazole Magnesium [Nexium 24Hr] 40 mg PO DAILY 04/27/18 Fluticasone/Vilanterol [Breo Ellipta 200-25 Mcg INH] 1 each IH DAILY 04/27/18 Folic Acid/Vit B Complex and C [Renal-Kelly Tablet] 0.8 mg PO DAILY 04/27/18 Gabapentin [Neurontin -] 100 mg PO DAILY 04/27/18 Loratadine [Claritin] 10 mg PO DAILY 04/27/18 Midodrine HCl 10 mg PO TID 04/27/18 Olopatadine HCl [Pataday] 1 drop OU DAILY 04/27/18 Omeprazole 40 mg PO DAILY 04/27/18 Oxycodone HCl/Acetaminophen [Percocet 10-325 mg Tablet] 1 each PO BID 10/29/18 Sevelamer Carbonate [Renvela] 1,600 mg PO TID 04/27/18 Zolpidem Tartrate [Ambien] 10 mg PO DAILY 04/27/18 Physical Exam Vital Signs: Vital Signs Temperature 97.5 F L 04/28/18 06:57 Pulse Rate 74 04/28/18 06:57 Respiratory Rate 20 04/28/18 06:57 Blood Pressure 166/80 04/28/18 06:57 O2 Sat by Pulse Oximetry (%) 98 04/27/18 21:00 Constitutional: Yes: No Distress Chest clear Abd soft nt CVS S1 S2 Extremities: Yes: Other (Left hand warm. 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 Small dry ulcer/eschar on 1st, 3rd and 5th fingers. No purulence.) no LE edema RT arm AVF pos thrill Labs: CBC, BMP 04/27/18 17:00 04/28/18 06:20 Imaging - Results Ultrasound: Image Reviewed (Diominished arterial flow in both forearms. No pressures done.) Problem List - Problems (1) Stenosis of artery of upper extremity Assessment/Plan: Chronic distal arterial Vasc fup ESRD HD thurs DM on lantus and 70/30 insulin additioally For hyperphosphatemia continue renvela 800 2 TID with meals
[2018-04-29] MEDS: PANTOPRAZOLE 40 MG TABLET (FP) PO SCH (09:54)
[2018-04-29] MEDS: ASPIRIN COATED 81 MG TABLET.EC PO SCH (09:54)
[2018-04-29] MEDS: MIDODRINE HCL 5 MG TABLET PO SCH (09:54)
--- NOTE | 2018-04-29 12:01 | CON.ID ---
Consult Consult Specialty:: infectious diseases Reason for Consultation:: cellulitis of the left hand - History of Present Illness Chief Complaint: pain of the left hand,rednss of the left little finger History of Present Illness: 57 year old man with ESRD secondary to DM on HD with right upper arm fistula.who has pvd was having pain and swelling of the hand according to him from the last 2 weeks patient was seen by his primary care nd send to the hospital for further mgmt of his ischemic ulcer and cellulittis of the hand patient denies any fever and currently he does not ahve any pain vascular on the case - History Source History Provided By: Patient Limitations to Obtaining History: No Limitations - Past Medical History 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 Cardio/Vascular: Yes: CAD (CABG), HTN, Hyperlipdemia Renal/: Yes: Renal Failure, Hemodialysis Musculoskeletal: Yes: Other (peripheral vascular disease) Endocrine: Yes: Diabetes Mellitus - Past Surgical History Past Surgical History: Yes: Amputation, AV Fistula/Graft, CABG - Alcohol/Substance Use Hx Alcohol Use: No History of Substance Use: reports: None - Smoking History Smoking history: Never smoked Have you smoked in the past 12 months: No Aproximately how many cigarettes per day: 0 - Social History Usual Living Arrangement: With Spouse ADL: Independent History of Recent Travel: No Home Medications - Allergies Allergies/Adverse Reactions: Allergies Allergy/AdvReac Type Severity Reaction Status Date / Time No Known Drug Allergies Allergy Verified 11/04/17 11:52 - Home Medications Home Medications: Ambulatory Orders Albuterol 2.5/Ipratropium 0.5 [Duoneb -] 1 amp NEB TID 04/27/18 Aspirin [Ecotrin] 81 mg PO DAILY 04/27/18 Atorvastatin Ca [Lipitor] 40 mg PO HS 04/27/18 Esomeprazole Magnesium [Nexium 24Hr] 40 mg PO DAILY 04/27/18 Fluticasone/Vilanterol [Breo Ellipta 200-25 Mcg INH] 1 each IH DAILY 04/27/18 Folic Acid/Vit B Complex and C [Renal-Kelly Tablet] 0.8 mg PO DAILY 04/27/18 Gabapentin [Neurontin -] 100 mg PO DAILY 04/27/18 Loratadine [Claritin] 10 mg PO DAILY 04/27/18 Midodrine HCl 10 mg PO TID 04/27/18 Olopatadine HCl [Pataday] 1 drop OU DAILY 04/27/18 Omeprazole 40 mg PO DAILY 04/27/18 Oxycodone HCl/Acetaminophen [Percocet 10-325 mg Tablet] 1 each PO BID 04/27/18 Sevelamer Carbonate [Renvela] 1,600 mg PO TID 04/27/18 Zolpidem Tartrate [Ambien] 10 mg PO DAILY 04/27/18 Review of Systems - Review of Systems Constitutional: reports: No Symptoms Eyes: reports: No Symptoms HENT: reports: No Symptoms Neck: reports: No Symptoms Cardiovascular: reports: No Symptoms Respiratory: reports: No Symptoms Gastrointestinal: reports: No Symptoms Genitourinary: reports: No Symptoms Musculoskeletal: reports: Other Integumentary: reports: Change in Color, Erythema, Other (ulcers on the fingers) Neurological: reports: No Symptoms Endocrine: reports: No Symptoms Hematology/Lymphatic: reports: No Symptoms Psychiatric: reports: No Symptoms Physical Exam Vital Signs: Vital Signs Temperature 98.1 F 04/29/18 10:00 Pulse Rate 69 04/29/18 10:00 Respiratory Rate 18 04/29/18 10:00 Blood Pressure 129/50 L 04/29/18 10:00 O2 Sat by Pulse Oximetry (%) 96 04/28/18 21:00 Constitutional: Yes: Well Nourished, No Distress, Calm Neck: Yes: Supple, Trachea Midline Cardiovascular: Yes: Regular Rate and Rhythm Respiratory: Yes: Regular, CTA Bilaterally Gastrointestinal: Yes: Normal Bowel Sounds, Soft Musculoskeletal: Yes: Other Extremities: Yes: Erythema, Other (ulcers on the fingers--vascular) Integumentary: Yes: Erythema Wound/Incision: Yes: Clean/Dry, Well Approximated Neurological: Yes: Alert, Oriented Psychiatric: Yes: Alert, Oriented Labs: CBC, BMP 04/27/18 17:00 04/28/18 17:10 Imaging - Results Chest X-ray: Report Reviewed, Image Reviewed Cat Scan: Report Reviewed, Image Reviewed Ultrasound: Report Reviewed, Image Reviewed Assessment/Plan patient examined i suspect his cellulittis probably reaction to ischemia and not infectious wound cx though have been send Problem List - Problems (1) Cellulitis of left hand Code(s): L03.114 - CELLULITIS OF LEFT UPPER LIMB (2) Stenosis of artery of upper extremity Code(s): I70.208 - UNSP ATHSCL [place] ARTERIES OF EXTREMITIES, OTH EXTREMITY (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
[2018-04-29] MEDS ORDERED: INSULIN (LEVEMIR) 100 UNITS/ML UNITS SQ SCH (12:27)
--- NOTE | 2018-04-29 12:27 | PN ---
Progress Note (short form) - Note Progress Note: pt seen/ examined. chart reviewed case was discussed with had CTA - results reviewed denies pain Vital Signs - 24 hr 04/28/18 04/28/18 04/28/18 13:35 13:40 14:10 Temperature 97.3 F L Pulse Rate 80 79 75 Respiratory 18 18 18 Rate Blood Pressure 154/80 170/83 126/62 O2 Sat by Pulse Oximetry (%) 04/28/18 04/28/18 04/28/18 14:17 14:40 15:10 Temperature 97.3 F L Pulse Rate 74 74 78 Respiratory 22 H 18 18 Rate Blood Pressure 112/53 L 112/53 L 97/60 O2 Sat by Pulse Oximetry (%) 04/28/18 04/28/18 04/28/18 15:40 16:10 16:40 Temperature Pulse Rate 78 74 78 Respiratory 18 18 18 Rate Blood Pressure 99/64 109/66 108/49 L O2 Sat by Pulse Oximetry (%) 04/28/18 04/28/18 04/28/18 17:10 17:30 19:26 Temperature 97.5 F L Pulse Rate 72 71 75 Respiratory 18 18 18 Rate Blood Pressure 110/52 L 126/65 121/51 L O2 Sat by Pulse Oximetry (%) 04/28/18 04/28/18 04/29/18 20:32 21:00 06:00 Temperature 97.5 F L 97.9 F Pulse Rate 78 69 Respiratory 18 18 Rate Blood Pressure 134/64 102/50 L O2 Sat by Pulse 96 Oximetry (%) 04/29/18 10:00 Temperature 98.1 F Pulse Rate 69 Respiratory 18 Rate Blood Pressure 129/50 L O2 Sat by Pulse Oximetry (%) Current Medications Generic Name Dose Route Start Last Admin Trade Name Freq PRN Reason Stop Dose Admin Acetaminophen 325 mg 04/27/18 18:57 Tylenol - PO Q3H PRN PAIN LEVEL 1-5 Aspirin 81 mg 04/28/18 10:00 04/29/18 09:54 Ecotrin - PO 81 mg DAILY [facility] Administration Atorvastatin Calcium 40 mg 04/27/18 22:00 04/28/18 21:07 Lipitor - PO 40 mg HS [facility] Administration Gabapentin 100 mg 04/27/18 22:00 04/28/18 21:07 Neurontin - PO 100 mg HS [facility] Administration Piperacillin Sod/Tazobactam 50 mls @ 100 mls/hr 04/28/18 19:00 04/29/18 09:53 Sod 2.25 gm/ Dextrose IVPB 100 mls/hr Q8H-IV [facility] Administration Insulin Aspart 20 units 04/28/18 07:00 04/29/18 07:33 Novolog Mix 70/30 Vial SQ 20 units BIDAC [facility] Administration Insulin Aspart 1 vial 04/28/18 22:00 04/29/18 11:19 Novolog Vial Sliding Scale - SQ Not Given ACHS [facility] Protocol Insulin Detemir 30 units 04/28/18 07:00 04/29/18 06:50 Levemir Vial SQ 30 units DAILY@0700 [facility] Administration Midodrine 10 mg 04/28/18 10:00 04/29/18 09:54 Proamatine - PO 10 mg DAILY [facility] Administration Oxycodone HCl 10 mg 04/27/18 18:57 Roxicodone - PO Q3H PRN PAIN LEVEL 1-5 Pantoprazole Sodium 40 mg 04/28/18 10:00 04/29/18 09:54 Protonix - PO 40 mg DAILY [facility] Administration Sevelamer Carbonate 1,600 mg 04/29/18 09:03 Renvela - PO TIDCM [facility] Laboratory Results - last 24 hr 04/28/18 04/28/18 04/28/18 12:39 17:10 17:53 BUN 35 H POC Glucometer 351 265 04/28/18 04/29/18 04/29/18 21:11 05:40 11:05 BUN POC Glucometer 448 273 105 Physical exam awake Comfortable neck- supple lungs- diminished at bases cvs- s1, s2 rrr abd - soft ext- left hands fingers ulcerations, decreased erythema to left 5 th finger, not tender 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 Uncontrolled diabetes esrd- hd Cta done- patent vascular follow up pain under control HD per renal increase insulin monitor bgm will follow Problem List - Problems (1) Cellulitis of left hand Code(s): L03.114 - CELLULITIS OF LEFT UPPER LIMB (2) Stenosis of artery of upper extremity Code(s): I70.208 - UNSP ATHSCL [place] ARTERIES OF EXTREMITIES, OTH EXTREMITY (3) Anemia Code(s): D64.9 - ANEMIA, UNSPECIFIED Qualifiers: Anemia type: unspecified type Qualified Code(s): D64.9 - Anemia, unspecified (4) Diabetes Code(s): E11.9 - TYPE 2 DIABETES MELLITUS WITHOUT COMPLICATIONS Qualifiers: Diabetes mellitus type: type 2 Diabetes mellitus complication status: with unspecified complications (5) ESRD (end stage renal disease) on dialysis Code(s): N18.6 - END STAGE RENAL DISEASE; Z99.2 - DEPENDENCE ON RENAL DIALYSIS
--- NOTE | 2018-04-29 15:28 | PN ---
Progress Note (short form) - Note Progress Note: CTA does not show any vascular occlusion in the left upper extremity from subclavian artery to wrist. The left hand wounds are probably related to neuropathy and trauma. Distal phalanx of 5th finger may have osteomyelitis with exposed bone. Recommend evaluation by hand surgery. Problem List - Problems (1) Stenosis of artery of upper extremity Code(s): I70.208 - UNSP ATHSCL [place] ARTERIES OF EXTREMITIES, OT EXTREMITY
--- NOTE | 2018-04-29 16:50 | CONSULT ---
Consult Consult Specialty:: hand and microsurgery Referred by:: nadeen Reason for Consultation:: left small finger gangrene - History of Present Illness Chief Complaint: left small finger gangrene History of Present Illness: 57 yo male PMH ESRD on HD with right upper arm fistula, s/p ray amputation of right middle finger, chronic osteomyelitis and dry gangrene left small finger . He has had problems with distal ischemia of the right hand not related to steal in the past and required finger amputation. He now [presents with left finger wounds, numbness and pain. He has had access in the left arm in the past but no current AV fistula. We were asked to assess. 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 No: Aortic Stenosis Renal/: Yes: Renal Failure, Hemodialysis Musculoskeletal: Yes: Other (peripheral vascular disease) Endocrine: Yes: Diabetes Mellitus - Past Surgical History Past Surgical History: Yes: Amputation, AV Fistula/Graft, CABG - Alcohol/Substance Use Hx Alcohol Use: No History of Substance Use: reports: None - Smoking History Smoking history: Never smoked Have you smoked in the past 12 months: No Aproximately how many cigarettes per day: 0 - Social History Usual Living Arrangement: With Spouse ADL: Independent History of Recent Travel: No Home Medications - Allergies Allergies/Adverse Reactions: Allergies Allergy/AdvReac Type Severity Reaction Status Date / Time No Known Drug Allergies Allergy Verified 11/04/17 11:52 - Home Medications Home Medications: Ambulatory Orders Albuterol 2.5/Ipratropium 0.5 [Duoneb -] 1 amp NEB TID 04/27/18 Aspirin [Ecotrin] 81 mg PO DAILY 04/27/18 Atorvastatin Ca [Lipitor] 40 mg PO HS 04/27/18 Esomeprazole Magnesium [Nexium 24Hr] 40 mg PO DAILY 04/27/18 Fluticasone/Vilanterol [Breo Ellipta 200-25 Mcg INH] 1 each IH DAILY 04/27/18 Folic Acid/Vit B Complex and C [Renal-Kelly Tablet] 0.8 mg PO DAILY 04/27/18 Gabapentin [Neurontin -] 100 mg PO DAILY 04/27/18 Loratadine [Claritin] 10 mg PO DAILY 04/27/18 Midodrine HCl 10 mg PO TID 04/27/18 Olopatadine HCl [Pataday] 1 drop OU DAILY 04/27/18 Omeprazole 40 mg PO DAILY 04/27/18 Oxycodone HCl/Acetaminophen [Percocet 10-325 mg Tablet] 1 each PO BID 04/27/18 Sevelamer Carbonate [Renvela] 1,600 mg PO TID 04/27/18 Zolpidem Tartrate [Ambien] 10 mg PO DAILY 04/27/18 Review of Systems - Review of Systems Constitutional: denies: Chills, Fever Eyes: denies: Blind Spots, Blurred Vision, Recent Change in Vision HENT: denies: Difficult Swallowing, Throat Pain Neck: denies: Pain on Movement, Tenderness Cardiovascular: reports: Edema. denies: Chest Pain, Palpitations Respiratory: denies: Cough, SOB Gastrointestinal: denies: Abdominal Pain, Constipation, Diarrhea Breasts: reports: No Symptoms Reported. denies: Pain Musculoskeletal: reports: Extremity Pain Integumentary: denies: Bruising, Pruritis, Rash Neurological: denies: Seizure, Syncope Endocrine: denies: Unexplained Weight Gain, Unexplained Weight Loss Hematology/Lymphatic: denies: Easily Bruised, Excessive Bleeding Psychiatric: denies: Anxiety, Depression Physical Exam Vital Signs: Vital Signs Temperature 98.3 F 04/29/18 14:32 Pulse Rate 74 04/29/18 14:32 Respiratory Rate 20 04/29/18 14:32 Blood Pressure 117/89 04/29/18 14:32 O2 Sat by Pulse Oximetry (%) 96 04/28/18 21:00 Constitutional: Yes: Well Nourished, No Distress, Calm Eyes: Yes: Conjunctiva Clear, EOM Intact HENT: Yes: Atraumatic, Normocephalic Neck: Yes: Supple, Trachea Midline Cardiovascular: Yes: Regular Rate and Rhythm, S1, S2 Respiratory: Yes: Regular, CTA Bilaterally Gastrointestinal: Yes: Normal Bowel Sounds, Soft. No: Tenderness ...Rectal Exam: Yes: Deferred Renal/: No: CVA Tenderness - Left, CVA Tenderness - Right Breast(s): Yes: Gynecomastia. No: Mass Musculoskeletal: No: Muscle Pain, Muscle Weakness Extremities: No: Cool, Cyanosis Edema: Yes Edema: LLE: 2+, RLE: 2+ Integumentary: No: Bruising, Jaundice, Rash Wound/Incision: Yes: Clean/Dry, Pastor Removed, Unapproximated (tip of left small finger, dorsal ulcer over left thumb IP joint and). No: Draining, Reddened, Bleeding Neurological: Yes: Alert, Oriented Psychiatric: Yes: Alert, Oriented Labs: CBC, BMP 04/27/18 17:00 04/28/18 17:10 Imaging - Results X-ray: Report Reviewed, Image Reviewed (reviewed and no acute fractures or dislocation) Problem List - Problems (1) Osteomyelitis Assessment/Plan: 57yo male MMP dry gangrene of left small finger NPO and IVF hydration IV antibiotics ID consult OR for Revision amputation of left small finger Discussed with patient risks, benefits and alternatives of aforementioned procedure, including but not limited to bleeding, infection, injury to adjacent structures, loss of function, need for further procedures, ; alternatives include antibiotics, delayed or no surgery - risks of this include failure of nonoperative therapy, recurrence, . Patient desires to proceed with operation - will take to OR for above. Informed consent signed for same. 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
[2018-04-29] MEDS: ATORVASTATIN CA 40 MG TABLET (FP) PO SCH (22:22)
[2018-04-29] MEDS: GABAPENTIN 100 MG CAPSULE (FP) PO SCH (22:22)
[2018-04-30] MEDS ORDERED: PIPERACILLIN/TAZOBACTAM 2.25 GM VIAL IVPB ONE ×3 (02:49→17:28)
[2018-04-30] MEDS ORDERED: DEXTROSE 5%-WATER - 50 ML IVPB ONE ×3 (02:49→17:28)
[2018-04-30] MEDS: PIPERACILLIN/TAZOB 2.25 GM 2.25 GM in DEXTROSE 5%-WATER - 50 ML IVPB SCH ×3 (02:55→17:40)
[2018-04-30] MEDS: INSULIN SLIDING SCALE (NOVOLOG) 1 VIAL SQ SCH ×4 (07:01→21:53)
[2018-04-30] MEDS: INSULIN (NOVOLOG MIX 70/30) 100 UNITS/ML MDV SQ SCH ×2 (07:01→17:39)
[2018-04-30 08:26] LABS: HEMATOCRIT 29.2 % (35.4-49); HEMOGLOBIN 9.5 GM/dL (11.7-16.9); MCH 29.6 pg (25.7-33.7); MCHC 32.4 g/dl (32.0-35.9); MEAN CELL VOLUME 91.5 fl (80-96); MEAN PLT VOLUME 10.1 fl (7.5-11.1); PLATELET COUNT 122 K/MM3 (134-434); RBC 3.19 M/mm3 (4.00-5.60); RDW 13.8 % (11.9-15.9); WHITE BLOOD COUNT 5.8 K/mm3 (4.0-10.0)
[2018-04-30 09:09] LABS: ANION GAP 18 MMOL/L (8-16); BLOOD UREA NITROGEN 91 mg/dL (7-18); CALCIUM 8.1 mg/dL (8.5-10.1); CHLORIDE 96 mmol/L (98-107); CO2 22 mmol/L (21-32); GLUCOSE,RANDOM 151 mg/dL (74-106); POTASSIUM 4.5 mmol/L (3.5-5.1); SODIUM 135 mmol/L (136-145)
[2018-04-30] MEDS: SEVELAMER CARBONATE 800 MG TAB (FP) PO SCH ×3 (09:12→17:40)
[2018-04-30 09:53] LABS: CREATININE 10.2 mg/dL (0.55-1.3)
--- NOTE | 2018-04-30 10:39 | PN ---
Progress Note, Physician - Current Medication List Current Medications: Active Medications Acetaminophen (Tylenol -) 325 mg PO Q3H PRN PRN Reason: PAIN LEVEL 1-5 Aspirin (Ecotrin -) 81 mg PO DAILY [facility] Last Admin: 04/29/18 09:54 Dose: 81 mg Atorvastatin Calcium (Lipitor -) 40 mg PO HS [facility] Last Admin: 04/29/18 22:22 Dose: 40 mg Gabapentin (Neurontin -) 100 mg PO HS [facility] Last Admin: 04/29/18 22:22 Dose: 100 mg Piperacillin Sod/Tazobactam (Sod 2.25 gm/ Dextrose) 50 mls @ 100 mls/hr IVPB Q8H-IV [facility] Last Admin: 04/30/18 09:10 Dose: 100 mls/hr Insulin Aspart (Novolog Vial Sliding Scale -) 1 vial SQ ACHS [facility]; Protocol Last Admin: 04/30/18 07:01 Dose: Not Given Insulin Aspart (Novolog Mix 70/30 Vial) 22 units SQ BIDAC [facility] Last Admin: 04/30/18 07:01 Dose: Not Given Insulin Detemir (Levemir Vial) 32 units SQ DAILY@0700 [facility] Last Admin: 04/30/18 07:01 Dose: Not Given Midodrine (Proamatine -) 10 mg PO DAILY [facility] Last Admin: 04/29/18 09:54 Dose: 10 mg Oxycodone HCl (Roxicodone -) 10 mg PO Q3H PRN PRN Reason: PAIN LEVEL 1-5 Pantoprazole Sodium (Protonix -) 40 mg PO DAILY [facility] Last Admin: 04/29/18 09:54 Dose: 40 mg Sevelamer Carbonate (Renvela -) 1,600 mg PO TIDCM [facility] Last Admin: 04/30/18 09:12 Dose: Not Given - Objective Vital Signs: Vital Signs Temperature 97.6 F 04/30/18 08:09 Pulse Rate 69 04/30/18 10:00 Respiratory Rate 18 04/30/18 10:00 Blood Pressure 118/69 04/30/18 10:00 O2 Sat by Pulse Oximetry (%) 98 04/29/18 21:00 Labs: CBC, BMP 04/30/18 07:30 04/30/18 07:30
[2018-04-30 10:59] LABS: INR 1.02 (0.83-1.09)
[2018-04-30] MEDS: ASPIRIN COATED 81 MG TABLET.EC PO SCH (11:25)
[2018-04-30] MEDS: MIDODRINE HCL 5 MG TABLET PO SCH (11:25)
[2018-04-30] MEDS: PANTOPRAZOLE 40 MG TABLET (FP) PO SCH (11:26)
[2018-04-30] MEDS ORDERED: VANCOMYCIN 1 GRAM (PRE-DOCKED) 1,000 MG/250 ML BAG IVPB ONE ×2 (12:00→16:40)
--- NOTE | 2018-04-30 12:45 | PN ---
Progress Note (short form) - Note Progress Note: pt seen/ examined in HD chart reviewed family at bedside pt extremely nervous about surgery today noted to be tachycardic no SOB O2 sat - 98% denies pain Vital Signs - 24 hr 04/29/18 04/29/18 04/29/18 14:32 18:00 21:00 Temperature 98.3 F 98.5 F Pulse Rate 74 75 Respiratory 20 20 20 Rate Blood Pressure 117/89 129/68 O2 Sat by Pulse 98 Oximetry (%) 04/29/18 04/30/18 04/30/18 22:00 07:25 07:30 Temperature 97.8 F Pulse Rate 71 74 68 Respiratory 20 18 18 Rate Blood Pressure 135/72 142/100 146/110 H O2 Sat by Pulse Oximetry (%) 04/30/18 04/30/18 04/30/18 08:00 08:09 08:30 Temperature 97.6 F Pulse Rate 67 70 67 Respiratory 18 20 18 Rate Blood Pressure 121/54 L 108/50 L 114/52 L O2 Sat by Pulse Oximetry (%) 04/30/18 04/30/18 04/30/18 09:00 09:30 10:00 Temperature Pulse Rate 63 60 69 Respiratory 18 18 18 Rate Blood Pressure 110/62 114/60 118/69 O2 Sat by Pulse Oximetry (%) 04/30/18 04/30/18 04/30/18 10:30 11:00 11:30 Temperature Pulse Rate 62 72 78 Respiratory 18 18 18 Rate Blood Pressure 113/58 L 116/50 L 120/54 L O2 Sat by Pulse Oximetry (%) 04/30/18 11:46 Temperature 97.6 F Pulse Rate 124 H Respiratory 18 Rate Blood Pressure 118/66 O2 Sat by Pulse Oximetry (%) Current Medications Generic Name Dose Route Start Last Admin Trade Name Freq PRN Reason Stop Dose Admin Acetaminophen 325 mg 04/27/18 18:57 Tylenol - PO Q3H PRN PAIN LEVEL 1-5 Aspirin 81 mg 04/28/18 10:00 04/30/18 11:25 Ecotrin - PO Not Given DAILY [facility] Atorvastatin Calcium 40 mg 04/27/18 22:00 04/29/18 22:22 Lipitor - PO 40 mg HS [facility] Administration Gabapentin 100 mg 04/27/18 22:00 04/29/18 22:22 Neurontin - PO 100 mg HS [facility] Administration Piperacillin Sod/Tazobactam 50 mls @ 100 mls/hr 04/28/18 19:00 04/30/18 09:10 Sod 2.25 gm/ Dextrose IVPB 100 mls/hr Q8H-IV [facility] Administration Insulin Aspart 1 vial 04/28/18 22:00 04/30/18 11:35 Novolog Vial Sliding Scale - SQ Not Given ACHS [facility] Protocol Insulin Aspart 22 units 04/29/18 12:27 04/30/18 07:01 Novolog Mix 70/30 Vial SQ Not Given BIDAC [facility] Insulin Detemir 32 units 04/29/18 12:27 04/30/18 07:01 Levemir Vial SQ Not Given DAILY@0700 [facility] Midodrine 10 mg 04/28/18 10:00 04/30/18 11:25 Proamatine - PO Not Given DAILY [facility] Oxycodone HCl 10 mg 04/27/18 18:57 Roxicodone - PO Q3H PRN PAIN LEVEL 1-5 Pantoprazole Sodium 40 mg 04/28/18 10:00 04/30/18 11:26 Protonix - PO Not Given DAILY [facility] Sevelamer Carbonate 1,600 mg 04/29/18 09:03 04/30/18 12:00 Renvela - PO Not Given TIDCM [facility] Laboratory Results - last 24 hr 04/28/18 04/29/18 04/29/18 13:40 16:08 22:20 WBC RBC Hgb Hct MCV MCH MCHC RDW Plt Count MPV PT with INR INR Sodium Potassium Chloride Carbon Dioxide Anion Gap BUN Creatinine Creat Clearance w eGFR POC Glucometer 176 211 Random Glucose Calcium Hep C Ab Diagnostic <0.1 04/30/18 04/30/18 04/30/18 07:00 07:30 07:30 WBC 5.8 RBC 3.19 L Hgb 9.5 L Hct 29.2 L MCV 91.5 MCH 29.6 MCHC 32.4 RDW 13.8 Plt Count 122 L D MPV 10.1 PT with INR INR Sodium 135 L Potassium 4.5 Chloride 96 L Carbon Dioxide 22 Anion Gap 18 H BUN 91 H Creatinine 10.2 H* Creat Clearance w eGFR 5.26 POC Glucometer 173 Random Glucose 151 H Calcium 8.1 L Hep C Ab Diagnostic 11/01/18 11/01/18 10:25 11:29 WBC RBC Hgb Hct MCV MCH MCHC RDW Plt Count MPV PT with INR 12.00 INR 1.02 Sodium Potassium Chloride Carbon Dioxide Anion Gap BUN Creatinine Creat Clearance w eGFR POC Glucometer 173 Random Glucose Calcium Hep C Ab Diagnostic Physical exam awake Comfortable neck- supple lungs- diminished at bases cvs- s1, s2 rrr, tachycardic abd - soft ext- left hands fingers ulcerations, decreased erythema to left 5 th finger, not tender , mobile 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 heart rate elevated in HD as pt is very nervous about surgery EKG-- NSR Labs noted Pt is medically cleared for procedure pain under control HD per renal Problem List - Problems (1) Cellulitis of left hand Code(s): L03.114 - CELLULITIS OF LEFT UPPER LIMB (2) Stenosis of artery of upper extremity Code(s): I70.208 - UNSP ATHSCL [place] ARTERIES OF EXTREMITIES, OTH EXTREMITY (3) Anemia Code(s): D64.9 - ANEMIA, UNSPECIFIED Qualifiers: Anemia type: unspecified type Qualified Code(s): D64.9 - Anemia, unspecified (4) Diabetes Code(s): E11.9 - TYPE 2 DIABETES MELLITUS WITHOUT COMPLICATIONS Qualifiers: Diabetes mellitus type: type 2 Diabetes mellitus complication status: with unspecified complications (5) ESRD (end stage renal disease) on dialysis Code(s): N18.6 - END STAGE RENAL DISEASE; Z99.2 - DEPENDENCE ON RENAL DIALYSIS
[2018-04-30 13:08] LABS: CREATININE 3.3 mg/dL (0.55-1.3)
[2018-04-30] MEDS ORDERED: LIDOCAINE HCL 1%, 10 MG/ML (20ML VIAL) ONE (14:45)
[2018-04-30] MEDS ORDERED: BUPIVACAINE HCL/PF 0.5% (5MG/ML) 10 ML VIAL ONE (14:45)
--- NOTE | 2018-04-30 14:46 | EKG ---
Test Reason : Blood Pressure : / mmHG Vent. Rate : 071 BPM Atrial Rate : 071 BPM P-R Int : 154 ms QRS Dur : 108 ms QT Int : 440 ms P-R-T Axes : 042 -08 111 degrees QTc Int : 478 ms NORMAL SINUS RHYTHM POSSIBLE LEFT ATRIAL ENLARGEMENT INCOMPLETE RIGHT BUNDLE BRANCH BLOCK PROLONGED QT ABNORMAL ECG WHEN COMPARED WITH ECG OF 28-DEC-2017 16:21, QRS AXIS SHIFTED RIGHT CRITERIA FOR SEPTAL INFARCT ARE NO LONGER PRESENT T WAVE INVERSION LESS EVIDENT IN LATERAL LEADS Confirmed by ANA LUISA FIGUEROA MD ([id number]) on 04/30/2018 2:45:41 PM Referred By: Confirmed By:ANA LUISA FIGUEROA MD
[2018-04-30] MEDS ORDERED: MIDAZOLAM HCL 2 MG/2 ML SINGLE DOSE VIAL ONE (15:18)
[2018-04-30] MEDS ORDERED: PROPOFOL 20 ML ONE (15:18)
[2018-04-30] MEDS ORDERED: DEXAMETHASONE SOD PHOSPHATE 4 MG/1 ML VIAL ONE (15:18)
[2018-04-30] MEDS ORDERED: LIDOCAINE HCL/PF 2% SDV 5ML VIAL ONE (15:18)
[2018-04-30] MEDS ORDERED: VANCOMYCIN 1,000 MG VIAL (RESTRICTED TO ID ONLY) IVPB ONE (15:45)
[2018-04-30] MEDS ORDERED: BUPIVACAINE HCL/PF 0.5% (5MG/ML) 10 ML VIAL IJ ONE (15:46)
--- NOTE | 2018-04-30 16:22 | OP ---
Operative Note - Note: Operative Date: 04/30/18 Pre-Operative Diagnosis: Dry gangrene left small finger tip/ chronic osteomyelitis Operation: Revision amputation of left small finger to Distal joint Findings: exposed shaft distal pahalnx Post-Operative Diagnosis: Same as Pre-op Surgeon: Erik Dean Anesthesiologist/PHARMACY OPERATIONS COORDINATOR: Josefa Lopez Anesthesia: General, Local (0.5% marcaine 10ML), MAC Specimens Removed: left small finger tip, wound culture and bone culture Estimated Blood Loss (mls): 2 Instrument used (Debridements only): rongeur, scissior, scalple Fluid Volume Replaced (mls): 400 (crystalloid) Operative Report Dictated: Yes
[2018-04-30] MEDS: GABAPENTIN 100 MG CAPSULE (FP) PO SCH (21:52)
[2018-04-30] MEDS: ATORVASTATIN CA 40 MG TABLET (FP) PO SCH (21:52)
[2018-04-30] MEDS: HEPARIN NA (PORCINE) 5,000 UNITS/ML 1ML VIAL SQ SCH (21:53)
[2018-04-30] MEDS ORDERED: HEPARIN NA (PORCINE) 5,000 UNITS/ML 1ML VIAL SQ SCH (22:00)
[2018-04-30] MEDS: oxyCODONE HCL 5 MG TABLET PO PRN (22:35)
[2018-04-30] MEDS: ACETAMINOPHEN 325 MG TABLET (FP) PO PRN (22:36)
[2018-05-01] MEDS ORDERED: PIPERACILLIN/TAZOBACTAM 2.25 GM VIAL IVPB ONE ×3 (00:04→17:59)
[2018-05-01] MEDS ORDERED: DEXTROSE 5%-WATER - 50 ML IVPB ONE ×3 (00:04→18:00)
[2018-05-01] MEDS: PIPERACILLIN/TAZOB 2.25 GM 2.25 GM in DEXTROSE 5%-WATER - 50 ML IVPB SCH ×3 (02:07→18:04)
[2018-05-01] MEDS: INSULIN (NOVOLOG MIX 70/30) 100 UNITS/ML MDV SQ SCH ×2 (06:45→18:05)
[2018-05-01] MEDS: INSULIN SLIDING SCALE (NOVOLOG) 1 VIAL SQ SCH ×4 (06:45→21:31)
[2018-05-01] MEDS: INSULIN (LEVEMIR) 100 UNITS/ML UNITS SQ SCH (06:46)
[2018-05-01] MEDS: ACETAMINOPHEN 325 MG TABLET (FP) PO PRN ×3 (06:47→19:10)
[2018-05-01] MEDS: oxyCODONE HCL 5 MG TABLET PO PRN ×3 (06:47→19:09)
[2018-05-01] MEDS ORDERED: INSULIN (NOVOLOG) ASPART 100 UNITS/ML 10ML VIAL ONE (07:02)
[2018-05-01] MEDS: SEVELAMER CARBONATE 800 MG TAB (FP) PO SCH ×3 (08:18→18:04)
[2018-05-01] MEDS ORDERED: PT OWN MED DRAWER 7, Y5N ONE (09:29)
[2018-05-01] MEDS: PANTOPRAZOLE 40 MG TABLET (FP) PO SCH (09:36)
[2018-05-01] MEDS: ASPIRIN COATED 81 MG TABLET.EC PO SCH (09:36)
[2018-05-01] MEDS: HEPARIN NA (PORCINE) 5,000 UNITS/ML 1ML VIAL SQ SCH ×2 (09:36→21:31)
--- NOTE | 2018-05-01 10:46 | EKG ---
Test Reason : Blood Pressure : / mmHG Vent. Rate : 118 BPM Atrial Rate : 118 BPM P-R Int : 000 ms QRS Dur : 098 ms QT Int : 360 ms P-R-T Axes : 000 -24 083 degrees QTc Int : 504 ms ACCELERATED JUNCTIONAL RHYTHM INCOMPLETE RIGHT BUNDLE BRANCH BLOCK POSSIBLE ANTERIOR INFARCT (CITED ON OR BEFORE 28-DEC-2017) T WAVE ABNORMALITY, CONSIDER LATERAL ISCHEMIA ABNORMAL ECG WHEN COMPARED WITH ECG OF 30-APR-2018 23:55, JUNCTIONAL RHYTHM HAS REPLACED SINUS RHYTHM Confirmed by REGI OZUNA MD ([id number]) on 05/01/2018 10:46:42 AM Referred By: Confirmed By:REGI OZUNA MD
[2018-05-01] MEDS: MIDODRINE HCL 5 MG TABLET PO SCH (10:53)
--- NOTE | 2018-05-01 10:57 | PN ---
Progress Note (short form) - Note Progress Note: patient seen and examined. Postoperative day #1. Comfortable. Pain under control. Chart reviewed Mood is calm today Vital Signs Temp 97.5 F L 05/01/18 06:00 Pulse 70 05/01/18 06:00 Resp 18 05/01/18 06:00 BP 125/61 05/01/18 06:00 Pulse Ox 98 04/30/18 21:00 Intake & Output 04/30/18 04/30/18 05/01/18 11:59 23:59 11:59 Intake Total 50 100 Balance 50 100 Intake: IV 100 IVPB 50 Other: Voiding Method Toilet Toilet # Unmeasured Voids Void 1 Active Medications Acetaminophen (Tylenol -) 325 mg PO Q3H PRN PRN Reason: PAIN LEVEL 1-5 Last Admin: 05/01/18 06:47 Dose: 325 mg Aspirin (Ecotrin -) 81 mg PO DAILY [facility] Last Admin: 05/01/18 09:36 Dose: 81 mg Atorvastatin Calcium (Lipitor -) 40 mg PO HS [facility] Last Admin: 04/30/18 21:52 Dose: 40 mg Gabapentin (Neurontin -) 100 mg PO HS [facility] Last Admin: 04/30/18 21:52 Dose: 100 mg Heparin Sodium (Porcine) (Heparin -) 5,000 unit SQ BID [facility] Last Admin: 05/01/18 09:36 Dose: 5,000 unit Piperacillin Sod/Tazobactam (Sod 2.25 gm/ Dextrose) 50 mls @ 100 mls/hr IVPB Q8H-IV [facility] Last Admin: 05/01/18 09:36 Dose: 100 mls/hr Insulin Aspart (Novolog Mix 70/30 Vial) 22 units SQ BIDAC [facility] Last Admin: 05/01/18 06:45 Dose: 22 units Insulin Aspart (Novolog Vial Sliding Scale -) 1 vial SQ ACHS [facility]; Protocol Last Admin: 05/01/18 06:45 Dose: 4 units Insulin Detemir (Levemir Vial) 32 units SQ DAILY@0700 [facility] Last Admin: 05/01/18 06:46 Dose: 32 units Midodrine (Proamatine -) 10 mg PO DAILY [facility] Last Admin: 05/01/18 10:53 Dose: 10 mg Oxycodone HCl (Roxicodone -) 10 mg PO Q3H PRN PRN Reason: PAIN LEVEL 1-5 Last Admin: 05/01/18 06:47 Dose: 10 mg Pantoprazole Sodium (Protonix -) 40 mg PO DAILY [facility] Last Admin: 05/01/18 09:36 Dose: 40 mg Sevelamer Carbonate (Renvela -) 1,600 mg PO TIDCM [facility] Last Admin: 05/01/18 08:18 Dose: 1,600 mg CBC, BMP 04/30/18 07:30 04/30/18 11:00 Microbiology 04/28/18 20:30 Gram Stain - Final Hand - Left Wound Culture - Preliminary S Aureus 04/27/18 21:17 Blood Culture - Preliminary Blood - Peripheral Venous NO GROWTH OBTAINED AFTER 72 HOURS, INCUBATION TO CONTINUE FOR 2 DAYS. 04/27/18 17:00 Blood Culture - Preliminary Blood - Peripheral Venous NO GROWTH OBTAINED AFTER 72 HOURS, INCUBATION TO CONTINUE FOR 2 DAYS. 04/28/18 14:00 Blood Culture - Preliminary Blood - Peripheral Venous NO GROWTH OBTAINED AFTER 48 HOURS, INCUBATION TO CONTINUE FOR 3 DAYS. 04/28/18 14:00 Blood Culture - Preliminary Blood - Peripheral Venous NO GROWTH OBTAINED AFTER 48 HOURS, INCUBATION TO CONTINUE FOR 3 DAYS. Physical exam awake and Comfortable neck- supple. 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
--- NOTE | 2018-05-01 11:18 | PN ---
Progress Note (short form) - Note Progress Note: Anesthesia post op note, POD#1, S/P revision amputation of left small finger to Distal joint, under MAC anesthesia. Pat seen and examined. VSS. Pain well controlled. No apparent post anesthesia complications. Signed off.
--- NOTE | 2018-05-01 12:26 | PN ---
Progress Note, Physician - Current Medication List Current Medications: Active Medications Acetaminophen (Tylenol -) 325 mg PO Q3H PRN PRN Reason: PAIN LEVEL 1-5 Last Admin: 05/01/18 11:40 Dose: 325 mg Aspirin (Ecotrin -) 81 mg PO DAILY [facility] Last Admin: 05/01/18 09:36 Dose: 81 mg Atorvastatin Calcium (Lipitor -) 40 mg PO HS [facility] Last Admin: 04/30/18 21:52 Dose: 40 mg Gabapentin (Neurontin -) 100 mg PO HS [facility] Last Admin: 04/30/18 21:52 Dose: 100 mg Heparin Sodium (Porcine) (Heparin -) 5,000 unit SQ BID [facility] Last Admin: 05/01/18 09:36 Dose: 5,000 unit Piperacillin Sod/Tazobactam (Sod 2.25 gm/ Dextrose) 50 mls @ 100 mls/hr IVPB Q8H-IV [facility] Last Admin: 05/01/18 09:36 Dose: 100 mls/hr Insulin Aspart (Novolog Mix 70/30 Vial) 22 units SQ BIDAC [facility] Last Admin: 05/01/18 06:45 Dose: 22 units Insulin Aspart (Novolog Vial Sliding Scale -) 1 vial SQ [facility]; Protocol Last Admin: 05/01/18 11:34 Dose: Not Given Insulin Detemir (Levemir Vial) 32 units SQ DAILY@0700 [facility] Last Admin: 05/01/18 06:46 Dose: 32 units Midodrine (Proamatine -) 10 mg PO DAILY [facility] Last Admin: 05/01/18 10:53 Dose: 10 mg Oxycodone HCl (Roxicodone -) 10 mg PO Q3H PRN PRN Reason: PAIN LEVEL 1-5 Last Admin: 05/01/18 11:39 Dose: 10 mg Pantoprazole Sodium (Protonix -) 40 mg PO DAILY [facility] Last Admin: 05/01/18 09:36 Dose: 40 mg Sevelamer Carbonate (Renvela -) 1,600 mg PO TIDCM [facility] Last Admin: 05/01/18 08:18 Dose: 1,600 mg - Objective Vital Signs: Vital Signs Temperature 97.5 F L 05/01/18 06:00 Pulse Rate 72 05/01/18 10:00 Respiratory Rate 18 05/01/18 10:00 Blood Pressure 145/65 05/01/18 10:00 O2 Sat by Pulse Oximetry (%) 98 04/30/18 21:00 Labs: CBC, BMP 04/30/18 07:30 04/30/18 11:00 INR, PTT INR 1.02 (0.83-1.09) 04/30/18 10:25
--- NOTE | 2018-05-01 13:20 | PN ---
Progress Note, Physician Chief Complaint: left small finger dry gangrene History of Present Illness: 57 yo male PMH ESRD on HD with right upper arm fistula, s/p ray amputation of right middle finger, chronic osteomyelitis and dry gangrene left small finger. He has been stable postoperatively. - Current Medication List Current Medications: Active Medications Acetaminophen (Tylenol -) 325 mg PO Q3H PRN PRN Reason: PAIN LEVEL 1-5 Last Admin: 05/01/18 11:40 Dose: 325 mg Aspirin (Ecotrin -) 81 mg PO DAILY [facility] Last Admin: 05/01/18 09:36 Dose: 81 mg Atorvastatin Calcium (Lipitor -) 40 mg PO HS [facility] Last Admin: 04/30/18 21:52 Dose: 40 mg Gabapentin (Neurontin -) 100 mg PO HS [facility] Last Admin: 04/30/18 21:52 Dose: 100 mg Heparin Sodium (Porcine) (Heparin -) 5,000 unit SQ BID [facility] Last Admin: 05/01/18 09:36 Dose: 5,000 unit Piperacillin Sod/Tazobactam (Sod 2.25 gm/ Dextrose) 50 mls @ 100 mls/hr IVPB Q8H-IV [facility] Last Admin: 05/01/18 09:36 Dose: 100 mls/hr Insulin Aspart (Novolog Mix 70/30 Vial) 22 units SQ BIDAC [facility] Last Admin: 05/01/18 06:45 Dose: 22 units Insulin Aspart (Novolog Vial Sliding Scale -) 1 vial SQ ACHS [facility]; Protocol Last Admin: 05/01/18 11:34 Dose: Not Given Insulin Detemir (Levemir Vial) 32 units SQ DAILY@0700 [facility] Last Admin: 05/01/18 06:46 Dose: 32 units Midodrine (Proamatine -) 10 mg PO DAILY [facility] Last Admin: 05/01/18 10:53 Dose: 10 mg Oxycodone HCl (Roxicodone -) 10 mg PO Q3H PRN PRN Reason: PAIN LEVEL 1-5 Last Admin: 05/01/18 11:39 Dose: 10 mg Pantoprazole Sodium (Protonix -) 40 mg PO DAILY [facility] Last Admin: 05/01/18 09:36 Dose: 40 mg Sevelamer Carbonate (Renvela -) 1,600 mg PO TIDCM [facility] Last Admin: 05/01/18 12:40 Dose: 1,600 mg - Objective Vital Signs: Vital Signs Temperature 97.5 F L 05/01/18 06:00 Pulse Rate 72 05/01/18 10:00 Respiratory Rate 18 05/01/18 10:00 Blood Pressure 145/65 05/01/18 10:00 O2 Sat by Pulse Oximetry (%) 98 04/30/18 21:00 Constitutional: Yes: Well Nourished, No Distress, Calm, Obese Eyes: Yes: Conjunctiva Clear, EOM Intact HENT: Yes: Atraumatic, Normocephalic Neck: Yes: Supple, Trachea Midline Cardiovascular: Yes: Regular Rate and Rhythm, S1, S2 Respiratory: Yes: Regular, CTA Bilaterally Gastrointestinal: Yes: Normal Bowel Sounds, Soft, Abdomen, Obese. No: Distention ...Rectal Exam: Yes: Deferred Genitourinary: No: CVA Tenderness - Left, CVA Tenderness - Right Musculoskeletal: No: Muscle Pain, Muscle Weakness Extremities: Yes: Amputation (multiple distal extremities, right hand and toes.) . No: Cool, Cyanosis Edema: No Peripheral Pulses WNL: Yes Peripheral Pulses: Left Radial: 2+, Right Radial: 2+, Left Doralis Pedis: 2+, Right Dorsalis Pedis: 2+ Wound/Incision: Yes: Clean/Dry, Well Approximated, Dressing Dry and Intact Neurological: Yes: Alert, Oriented Psychiatric: Yes: Alert, Oriented Labs: CBC, BMP 04/30/18 07:30 04/30/18 11:00 INR, PTT INR 1.02 (0.83-1.09) 04/30/18 10:25 Problem List - Problems (1) Osteomyelitis Assessment/Plan: 57yo male MMP dry gangrene of left small finger POD#1 s/p revision amputation of left small finger Elevation of left hand while in bed glycemic control local wound care f/u cultures adequate analgesia discharge per primary team will follow Code(s): M86.9 - OSTEOMYELITIS, UNSPECIFIED Qualifiers: Osteomyelitis type: chronic multifocal Osteomyelitis location: hand Laterality: left Qualified Code(s): M86.342 - Chronic multifocal osteomyelitis , left hand (2) Dry gangrene Code(s): I96 - GANGRENE, NOT ELSEWHERE CLASSIFIED (3) Cellulitis of left hand Code(s): L03.114 - CELLULITIS OF LEFT UPPER LIMB (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
[2018-05-01] MEDS: ATORVASTATIN CA 40 MG TABLET (FP) PO SCH (21:31)
[2018-05-01] MEDS: GABAPENTIN 100 MG CAPSULE (FP) PO SCH (21:32)
[2018-05-02 00:08] LABS: HBSAG SCREEN Negative (Negative); HEP A AB, IGM Negative (Negative); HEP B CORE AB, TOT Negative (Negative)
[2018-05-02] MEDS ORDERED: PIPERACILLIN/TAZOBACTAM 2.25 GM VIAL IVPB ONE ×2 (02:26→10:38)
[2018-05-02] MEDS ORDERED: DEXTROSE 5%-WATER - 50 ML IVPB ONE ×2 (02:26→10:38)
[2018-05-02] MEDS: PIPERACILLIN/TAZOB 2.25 GM 2.25 GM in DEXTROSE 5%-WATER - 50 ML IVPB SCH ×2 (02:42→10:42)
[2018-05-02] MEDS: oxyCODONE HCL 5 MG TABLET PO PRN ×4 (03:05→21:49)
[2018-05-02] MEDS: INSULIN SLIDING SCALE (NOVOLOG) 1 VIAL SQ SCH ×4 (06:55→21:40)
[2018-05-02] MEDS: INSULIN (NOVOLOG MIX 70/30) 100 UNITS/ML MDV SQ SCH ×2 (06:56→19:24)
[2018-05-02] MEDS: INSULIN (LEVEMIR) 100 UNITS/ML UNITS SQ SCH (06:56)
[2018-05-02] MEDS: SEVELAMER CARBONATE 800 MG TAB (FP) PO SCH ×3 (08:37→19:25)
[2018-05-02] MEDS ORDERED: PT OWN MED DRAWER 7, Y5N ONE (10:38)
[2018-05-02] MEDS: MIDODRINE HCL 5 MG TABLET PO SCH (10:43)
[2018-05-02] MEDS: PANTOPRAZOLE 40 MG TABLET (FP) PO SCH (10:43)
[2018-05-02] MEDS: ASPIRIN COATED 81 MG TABLET.EC PO SCH (10:43)
[2018-05-02] MEDS: HEPARIN NA (PORCINE) 5,000 UNITS/ML 1ML VIAL SQ SCH ×2 (10:55→21:36)
[2018-05-02] MEDS ORDERED: INSULIN (NOVOLOG) ASPART 100 UNITS/ML 10ML VIAL ONE (11:25)
--- NOTE | 2018-05-02 12:24 | PN ---
Progress Note, Physician History of Present Illness: stable doing well no complaints - Current Medication List Current Medications: Active Medications Acetaminophen (Tylenol -) 325 mg PO Q3H PRN PRN Reason: PAIN LEVEL 1-5 Last Admin: 05/01/18 19:10 Dose: 325 mg Aspirin (Ecotrin -) 81 mg PO DAILY [facility] Last Admin: 05/02/18 10:43 Dose: 81 mg Atorvastatin Calcium (Lipitor -) 40 mg PO HS [facility] Last Admin: 05/01/18 21:31 Dose: 40 mg Doxycycline Hyclate (Vibramycin -) 100 mg PO BID@1000,1800 [facility] Gabapentin (Neurontin -) 100 mg PO HS [facility] Last Admin: 05/01/18 21:32 Dose: 100 mg Heparin Sodium (Porcine) (Heparin -) 5,000 unit SQ BID [facility] Last Admin: 05/02/18 10:55 Dose: Not Given Insulin Aspart ([facility] 70/30 [facility] Last Admin: 05/02/18 06:56 Dose: 22 units Insulin Aspart (Novolog Vial Sliding Scale -) 1 vial SQ [facility]; Protocol Last Admin: 05/02/18 11:35 Dose: 4 units Insulin Detemir (Levemir Vial) 32 units SQ DAILY@0700 [facility] Last Admin: 05/02/18 06:56 Dose: 32 units Midodrine (Proamatine -) 10 mg PO DAILY [facility] Last Admin: 05/02/18 10:43 Dose: 10 mg Oxycodone HCl (Roxicodone -) 10 mg PO Q3H PRN PRN Reason: PAIN LEVEL 1-5 Last Admin: 05/02/18 11:29 Dose: 10 mg Pantoprazole Sodium (Protonix -) 40 mg PO DAILY [facility] Last Admin: 05/02/18 10:43 Dose: 40 mg Sevelamer Carbonate (Renvela -) 1,600 mg PO TIDCM [facility] Last Admin: 05/02/18 11:32 Dose: 1,600 mg - Objective Vital Signs: Vital Signs Temperature 98.1 F 05/02/18 08:41 Pulse Rate 69 05/02/18 08:41 Respiratory Rate 18 05/02/18 09:00 Blood Pressure 128/64 05/02/18 08:41 O2 Sat by Pulse Oximetry (%) 98 05/02/18 09:00 Constitutional: Yes: No Distress, Calm Cardiovascular: Yes: Regular Rate and Rhythm Respiratory: Yes: Regular, CTA Bilaterally Gastrointestinal: Yes: Normal Bowel Sounds, Soft Musculoskeletal: Yes: WNL Extremities: Yes: Other Wound/Incision: Yes: Dressing Dry and Intact Neurological: Yes: Alert, Oriented Psychiatric: Yes: Alert, Oriented Labs: CBC, BMP 04/30/18 07:30 04/30/18 11:00 INR, PTT INR 1.02 (0.83-1.09) 04/30/18 10:25 Assessment/Plan Problem List - Problems (1) Cellulitis of left hand Code(s): L03.114 - CELLULITIS OF LEFT UPPER LIMB (2) Stenosis of artery of upper extremity Code(s): I70.208 - UNSP ATHSCL [place] ARTERIES OF EXTREMITIES, OTH EXTREMITY (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
--- NOTE | 2018-05-02 13:33 | PN ---
Progress Note (short form) - Note Progress Note: pt seen/ examined s/p revision amputation of left 5th finger- has pain Vital Signs - 24 hr 05/01/18 05/01/18 05/02/18 21:00 22:00 05:34 Temperature 97.3 F L Pulse Rate 70 61 Respiratory 20 20 18 Rate Blood Pressure 123/61 139/54 L O2 Sat by Pulse 98 Oximetry (%) 05/02/18 05/02/18 05/02/18 08:41 09:00 15:20 Temperature 98.1 F 97.9 F Pulse Rate 69 65 Respiratory 18 18 18 Rate Blood Pressure 128/64 109/65 O2 Sat by Pulse 98 Oximetry (%) 05/02/18 05/02/18 05/02/18 15:25 15:30 16:00 Temperature 97.6 F Pulse Rate 59 L 99 H 59 L Respiratory 18 18 18 Rate Blood Pressure 109/45 L 101/80 117/56 L O2 Sat by Pulse Oximetry (%) 05/02/18 05/02/18 05/02/18 16:30 17:00 17:30 Temperature Pulse Rate 60 58 L 62 Respiratory 18 18 18 Rate Blood Pressure 136/66 130/65 124/54 L O2 Sat by Pulse Oximetry (%) 05/02/18 05/02/18 05/02/18 17:45 18:00 19:00 Temperature Pulse Rate 66 65 66 Respiratory 18 18 18 Rate Blood Pressure 128/62 102/62 113/58 L O2 Sat by Pulse Oximetry (%) 05/02/18 19:20 Temperature Pulse Rate 68 Respiratory 18 Rate Blood Pressure 128/68 O2 Sat by Pulse Oximetry (%) Current Medications Generic Name Dose Route Start Last Admin Trade Name Freq PRN Reason Stop Dose Admin Acetaminophen 325 mg 04/30/18 16:40 05/01/18 19:10 Tylenol - PO 325 mg Q3H PRN Administration PAIN LEVEL 1-5 Aspirin 81 mg 05/01/18 10:00 05/02/18 10:43 Ecotrin - PO 81 mg DAILY [facility] Administration Atorvastatin Calcium 40 mg 04/30/18 22:00 05/01/18 21:31 Lipitor - PO 40 mg HS [facility] Administration Gabapentin 100 mg 04/30/18 22:00 05/01/18 21:32 Neurontin - PO 100 mg HS [facility] Administration Heparin Sodium (Porcine) 5,000 unit 04/30/18 22:00 05/02/18 10:55 Heparin - SQ Not Given BID [facility] Insulin Aspart 22 units 05/01/18 07:00 05/02/18 19:24 Novolog Mix 70/30 Vial SQ 22 units BIDAC [facility] Administration Insulin Aspart 1 vial 04/30/18 22:00 05/02/18 19:25 Novolog Vial Sliding Scale - SQ Not Given ACHS [facility] Protocol Insulin Detemir 32 units 05/01/18 07:00 05/02/18 06:56 Levemir Vial SQ 32 units DAILY@0700 [facility] Administration Midodrine 10 mg 05/01/18 10:00 05/02/18 10:43 Proamatine - PO 10 mg DAILY [facility] Administration Oxycodone HCl 5 mg 05/02/18 13:53 Roxicodone - PO Q4H PRN PAIN LEVEL 1-5 Pantoprazole Sodium 40 mg 05/01/18 10:00 05/02/18 10:43 Protonix - PO 40 mg DAILY [facility] Administration Sevelamer Carbonate 1,600 mg 04/30/18 17:30 05/02/18 19:25 Renvela - PO 1,600 mg TIDCM [facility] Administration Laboratory Results - last 24 hr 04/28/18 05/01/18 05/02/18 13:40 21:27 06:47 POC Glucometer 72 186 Hep A IgM Ab Confirm Negative Hepatitis A Ab Total Positive H Hep Bs Antigen Negative Hep Bs Antibody Reactive Hep B Core Total Ab Negative 05/02/18 05/02/18 11:33 19:20 POC Glucometer 250 211 Hep A IgM Ab Confirm Hepatitis A Ab Total Hep Bs Antigen Hep Bs Antibody Hep B Core Total Ab Physical exam awake Comfortable neck- supple lungs- diminished at bases cvs- s1, s2 rrr, tachycardic abd - soft ext- left - dressing in place 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, exposed bone Uncontrolled diabetes esrd- hd pain control increase insulin for better glucose control Surgical follow up 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 need 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 antibiotics pain under control HD per renal Problem List - Problems (1) Cellulitis of left hand Code(s): L03.114 - CELLULITIS OF LEFT UPPER LIMB (2) Stenosis of artery of upper extremity Code(s): I70.208 - UNSP ATHSCL [place] ARTERIES OF EXTREMITIES, OTH EXTREMITY (3) Anemia Code(s): D64.9 - ANEMIA, UNSPECIFIED Qualifiers: Anemia type: unspecified type Qualified Code(s): D64.9 - Anemia, unspecified (4) Diabetes Code(s): E11.9 - TYPE 2 DIABETES MELLITUS WITHOUT COMPLICATIONS Qualifiers: Diabetes mellitus type: type 2 Diabetes mellitus complication status: with unspecified complications (5) ESRD (end stage renal disease) on dialysis Code(s): N18.6 - END STAGE RENAL DISEASE; Z99.2 - DEPENDENCE ON RENAL DIALYSIS (6) Finger osteomyelitis, left Code(s): M86.9 - OSTEOMYELITIS, UNSPECIFIED
[2018-05-02] MEDS: VANCOMYCIN 1,250 MG in DEXTROSE 5%-WATER - 250 ML IVPB ONE ×2 (13:41→13:48)
[2018-05-02] MEDS ORDERED: VANCOMYCIN 1,250 MG in DEXTROSE 5%-WATER - 250 ML IVPB ONE (13:54)
[2018-05-02] MEDS ORDERED: EPOETIN ALFA 3,000 UNIT, EPOETIN ALFA 2,000 UNIT IVPUSH ONE (15:00)
--- NOTE | 2018-05-02 17:55 | PN ---
Progress Note, Physician Chief Complaint: left small finger dry gangrene History of Present Illness: 57 yo male PMH ESRD on HD with right upper arm fistula, s/p ray amputation of right middle finger, chronic osteomyelitis and dry gangrene left small finger. He has been stable postoperatively. - Current Medication List Current Medications: Active Medications Acetaminophen (Tylenol -) 325 mg PO Q3H PRN PRN Reason: PAIN LEVEL 1-5 Last Admin: 05/01/18 19:10 Dose: 325 mg Aspirin (Ecotrin -) 81 mg PO DAILY [facility] Last Admin: 05/02/18 10:43 Dose: 81 mg Atorvastatin Calcium (Lipitor -) 40 mg PO HS [facility] Last Admin: 05/01/18 21:31 Dose: 40 mg Gabapentin (Neurontin -) 100 mg PO HS [facility] Last Admin: 05/01/18 21:32 Dose: 100 mg Heparin Sodium (Porcine) (Heparin -) 5,000 unit SQ BID [facility] Last Admin: 05/02/18 10:55 Dose: Not Given Insulin Aspart (Novolog Mix 70/30 Vial) 22 units SQ BIDAC [facility] Last Admin: 05/02/18 06:56 Dose: 22 units Insulin Aspart (Novolog Vial Sliding Scale -) 1 vial SQ [facility]; Protocol Last Admin: 05/02/18 11:35 Dose: 4 units Insulin Detemir (Levemir Vial) 32 units SQ DAILY@0700 [facility] Last Admin: 05/02/18 06:56 Dose: 32 units Midodrine (Proamatine -) 10 mg PO DAILY [facility] Last Admin: 05/02/18 10:43 Dose: 10 mg Oxycodone HCl (Roxicodone -) 5 mg PO Q4H PRN PRN Reason: PAIN LEVEL 1-5 Pantoprazole Sodium (Protonix -) 40 mg PO DAILY [facility] Last Admin: 05/02/18 10:43 Dose: 40 mg Sevelamer Carbonate (Renvela -) 1,600 mg PO TIDCM [facility] Last Admin: 05/02/18 11:32 Dose: 1,600 mg - Objective Vital Signs: Vital Signs Temperature 97.6 F 05/02/18 15:25 Pulse Rate 58 L 05/02/18 17:00 Respiratory Rate 18 05/02/18 17:00 Blood Pressure 130/65 05/02/18 17:00 O2 Sat by Pulse Oximetry (%) 98 05/02/18 09:00 Vital Signs Period Temp Pulse Resp BP Sys/Harris Pulse Ox Last 24 Hr 97.3 F-98.1 F 58-99 18-20 101-139/45-80 98-98 Constitutional: Yes: Well Nourished, No Distress, Calm, Obese Eyes: Yes: Conjunctiva Clear, EOM Intact HENT: Yes: Atraumatic, Normocephalic Neck: Yes: Supple, Trachea Midline Cardiovascular: Yes: Regular Rate and Rhythm, S1, S2 Respiratory: Yes: Regular, CTA Bilaterally Gastrointestinal: Yes: Normal Bowel Sounds, Soft ...Rectal Exam: Yes: Deferred Genitourinary: No: CVA Tenderness - Left, CVA Tenderness - Right Extremities: No: Cool, Cyanosis Edema: No Peripheral Pulses WNL: Yes Peripheral Pulses: Left Radial: 2+, Right Radial: 2+, Left Doralis Pedis: 2+, Right Dorsalis Pedis: 2+ Integumentary: No: Jaundice, Rash Wound/Incision: Yes: Clean/Dry, Well Approximated, Sutures Intact, Dressing Dry and Intact. No: Draining, Reddened, Bleeding Neurological: Yes: Alert, Oriented Psychiatric: Yes: Alert, Oriented Labs: CBC, BMP 04/30/18 07:30 04/30/18 11:00 INR, PTT INR 1.02 (0.83-1.09) 04/30/18 10:25 Microbiology 04/30/18 15:49 Bone Gram Stain - Final 04/30/18 15:49 Bone Tissue Culture - Preliminary Presumptive Mrsa (Pbp2a Pos) Pending Organism Pending Organism#2 Pending Organism#3 04/28/18 14:00 Blood - Peripheral Venous Blood Culture - Preliminary NO GROWTH OBTAINED AFTER 96 HOURS, INCUBATION TO CONTINUE FOR 1 DAYS. 04/28/18 14:00 Blood - Peripheral Venous Blood Culture - Preliminary NO GROWTH OBTAINED AFTER 96 HOURS, INCUBATION TO CONTINUE FOR 1 DAYS. 04/27/18 21:17 Blood - Peripheral Venous Blood Culture - Preliminary NO GROWTH OBTAINED AFTER 96 HOURS, INCUBATION TO CONTINUE FOR 1 DAYS. 04/27/18 17:00 Blood - Peripheral Venous Blood Culture - Preliminary NO GROWTH OBTAINED AFTER 96 HOURS, INCUBATION TO CONTINUE FOR 1 DAYS. 04/28/18 20:30 Hand - Left Gram Stain - Final 04/28/18 20:30 Hand - Left Wound Culture - Final Mr S Aureus Problem List - Problems (1) Osteomyelitis Assessment/Plan: 57yo male MMP dry gangrene of left small finger POD#2 s/p revision amputation of left small finger MRSA from bone culture Elevation of left hand while in bed glycemic control local wound care f/u cultures adequate analgesia discharge per primary team will follow Code(s): M86.9 - OSTEOMYELITIS, UNSPECIFIED Qualifiers: Osteomyelitis type: chronic multifocal Osteomyelitis location: hand Laterality: left Qualified Code(s): M86.342 - Chronic multifocal osteomyelitis , left hand (2) Dry gangrene Code(s): I96 - GANGRENE, NOT ELSEWHERE CLASSIFIED (3) Cellulitis of left hand Code(s): L03.114 - CELLULITIS OF LEFT UPPER LIMB (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
[2018-05-02] MEDS ORDERED: DOXYCYCLINE HYCLATE 100 MG CAPSULE PO SCH (18:00)
[2018-05-02] MEDS ORDERED: INSULIN (NOVOLOG MIX 70/30) 100 UNITS/ML MDV SQ SCH (20:27)
[2018-05-02] MEDS: ATORVASTATIN CA 40 MG TABLET (FP) PO SCH (21:39)
[2018-05-02] MEDS: GABAPENTIN 100 MG CAPSULE (FP) PO SCH (21:39)
[2018-05-02] MEDS: ACETAMINOPHEN 325 MG TABLET (FP) PO PRN (21:49)
[2018-05-03] MEDS: oxyCODONE HCL 5 MG TABLET PO PRN ×3 (06:50→21:34)
[2018-05-03] MEDS: ACETAMINOPHEN 325 MG TABLET (FP) PO PRN ×2 (06:51→11:26)
[2018-05-03] MEDS: INSULIN SLIDING SCALE (NOVOLOG) 1 VIAL SQ SCH ×4 (06:52→21:35)
[2018-05-03] MEDS: INSULIN (LEVEMIR) 100 UNITS/ML UNITS SQ SCH (06:53)
[2018-05-03] MEDS: INSULIN (NOVOLOG MIX 70/30) 100 UNITS/ML MDV SQ SCH ×2 (06:54→17:24)
[2018-05-03] MEDS: SEVELAMER CARBONATE 800 MG TAB (FP) PO SCH ×3 (08:08→17:23)
[2018-05-03] MEDS ORDERED: PT OWN MED DRAWER 7, Y5N ONE (10:04)
[2018-05-03] MEDS: MIDODRINE HCL 5 MG TABLET PO SCH (10:18)
[2018-05-03] MEDS: PANTOPRAZOLE 40 MG TABLET (FP) PO SCH (10:18)
[2018-05-03] MEDS: ASPIRIN COATED 81 MG TABLET.EC PO SCH (10:18)
[2018-05-03] MEDS: HEPARIN NA (PORCINE) 5,000 UNITS/ML 1ML VIAL SQ SCH ×2 (10:19→21:15)
--- NOTE | 2018-05-03 12:32 | PN ---
Progress Note, Physician - Current Medication List Current Medications: Active Medications Acetaminophen (Tylenol -) 325 mg PO Q3H PRN PRN Reason: PAIN LEVEL 1-5 Last Admin: 05/03/18 11:26 Dose: 325 mg Aspirin (Ecotrin -) 81 mg PO DAILY [facility] Last Admin: 05/03/18 10:18 Dose: 81 mg Atorvastatin Calcium (Lipitor -) 40 mg PO HS [facility] Last Admin: 05/02/18 21:39 Dose: 40 mg Gabapentin (Neurontin -) 100 mg PO HS [facility] Last Admin: 05/02/18 21:39 Dose: 100 mg Heparin Sodium (Porcine) (Heparin -) 5,000 unit SQ BID [facility] Last Admin: 05/03/18 10:19 Dose: Not Given Insulin Aspart (Novolog Vial Sliding Scale -) 1 vial SQ [facility]; Protocol Last Admin: 05/03/18 11:28 Dose: 2 units Insulin Aspart (Novolog Mix 70/30 Vial) 24 units SQ BIDAC [facility] Last Admin: 05/03/18 06:54 Dose: 24 units Insulin Detemir (Levemir Vial) 34 units SQ DAILY@0700 [facility] Last Admin: 05/03/18 06:53 Dose: 34 units Midodrine (Proamatine -) 10 mg PO DAILY [facility] Last Admin: 05/03/18 10:18 Dose: 10 mg Oxycodone HCl (Roxicodone -) 5 mg PO Q4H PRN PRN Reason: PAIN LEVEL 1-5 Last Admin: 05/03/18 11:27 Dose: 5 mg Pantoprazole Sodium (Protonix -) 40 mg PO DAILY [facility] Last Admin: 05/03/18 10:18 Dose: 40 mg Sevelamer Carbonate (Renvela -) 1,600 mg PO TIDCM [facility] Last Admin: 05/03/18 12:03 Dose: 1,600 mg - Objective Vital Signs: Vital Signs Temperature 97.6 F 05/03/18 10:00 Pulse Rate 61 05/03/18 10:00 Respiratory Rate 18 05/03/18 10:00 Blood Pressure 117/62 05/03/18 10:00 O2 Sat by Pulse Oximetry (%) 96 05/02/18 21:00 Labs: CBC, BMP 04/30/18 07:30 04/30/18 11:00 INR, PTT INR 1.02 (0.83-1.09) 04/30/18 10:25
--- NOTE | 2018-05-03 12:35 | PN ---
Progress Note (short form) - Note Progress Note: pt seen/ examined s/p revision amputation of left 5th finger- has pain Vital Signs - 24 hr 05/02/18 05/02/18 05/03/18 21:00 22:00 06:58 Temperature 97.5 F L Pulse Rate 75 78 Respiratory 20 20 852 H Rate Blood Pressure 120/65 117/73 O2 Sat by Pulse 96 Oximetry (%) 05/03/18 05/03/18 05/03/18 09:00 10:00 14:54 Temperature 97.6 F 98.0 F Pulse Rate 61 65 Respiratory 18 18 18 Rate Blood Pressure 117/62 106/60 O2 Sat by Pulse 96 Oximetry (%) 05/03/18 18:46 Temperature 97.5 F L Pulse Rate 90 Respiratory 18 Rate Blood Pressure 124/66 O2 Sat by Pulse Oximetry (%) Current Medications Generic Name Dose Route Start Last Admin Trade Name Freq PRN Reason Stop Dose Admin Acetaminophen 325 mg 04/30/18 16:40 05/03/18 11:26 Tylenol - PO 325 mg Q3H PRN Administration PAIN LEVEL 1-5 Aspirin 81 mg 05/01/18 10:00 05/03/18 10:18 Ecotrin - PO 81 mg DAILY [facility] Administration Atorvastatin Calcium 40 mg 04/30/18 22:00 05/02/18 21:39 Lipitor - PO 40 mg HS [facility] Administration Gabapentin 100 mg 04/30/18 22:00 05/02/18 21:39 Neurontin - PO 100 mg HS [facility] Administration Heparin Sodium (Porcine) 5,000 unit 04/30/18 22:00 05/03/18 10:19 Heparin - SQ Not Given BID [facility] Insulin Aspart 1 vial 04/30/18 22:00 05/03/18 17:25 Novolog Vial Sliding Scale - SQ 2 units ACHS [facility] Administration Protocol Insulin Aspart 24 units 05/03/18 07:00 05/03/18 17:24 Novolog Mix 70/30 Vial SQ 24 units BIDAC [facility] Administration Insulin Detemir 34 units 05/03/18 07:00 05/03/18 06:53 Levemir Vial SQ 34 units DAILY@0700 [facility] Administration Midodrine 10 mg 05/01/18 10:00 05/03/18 10:18 Proamatine - PO 10 mg DAILY [facility] Administration Oxycodone HCl 10 mg 05/03/18 12:45 Roxicodone - PO Q6H PRN PAIN LEVEL 1-5 Pantoprazole Sodium 40 mg 05/01/18 10:00 05/03/18 10:18 Protonix - PO 40 mg DAILY [facility] Administration Sevelamer Carbonate 1,600 mg 04/30/18 17:30 05/03/18 17:23 Renvela - PO 1,600 mg TIDCM [facility] Administration Laboratory Results - last 24 hr 05/02/18 05/03/18 05/03/18 21:37 06:23 11:26 POC Glucometer 233 227 197 05/03/18 17:22 POC Glucometer 151 Physical exam awake Comfortable neck- supple lungs- diminished at bases cvs- s1, s2 rrr, tachycardic abd - soft ext- left - dressing in place 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, exposed bone Uncontrolled diabetes esrd- hd pain control increase insulin for better glucose control Surgical follow up noted- pt does not amputation of 5 th finger he is 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 manager long term care antibiotics - vanco with dialysis pain under control HD per renal Problem List - Problems (1) Cellulitis of left hand Code(s): L03.114 - CELLULITIS OF LEFT UPPER LIMB (2) Stenosis of artery of upper extremity Code(s): I70.208 - UNSP ATHSCL [place] ARTERIES OF EXTREMITIES, OTH EXTREMITY (3) Anemia Code(s): D64.9 - ANEMIA, UNSPECIFIED Qualifiers: Anemia type: unspecified type Qualified Code(s): D64.9 - Anemia, unspecified (4) Diabetes Code(s): E11.9 - TYPE 2 DIABETES MELLITUS WITHOUT COMPLICATIONS Qualifiers: Diabetes mellitus type: type 2 Diabetes mellitus complication status: with unspecified complications (5) ESRD (end stage renal disease) on dialysis Code(s): N18.6 - END STAGE RENAL DISEASE; Z99.2 - DEPENDENCE ON RENAL DIALYSIS (6) Finger osteomyelitis, left Code(s): M86.9 - OSTEOMYELITIS, UNSPECIFIED
[2018-05-03] MEDS: ATORVASTATIN CA 40 MG TABLET (FP) PO SCH (21:34)
[2018-05-03] MEDS: GABAPENTIN 100 MG CAPSULE (FP) PO SCH (21:34)
[2018-05-04] MEDS: oxyCODONE HCL 5 MG TABLET PO PRN (06:46)
[2018-05-04] MEDS: INSULIN (NOVOLOG MIX 70/30) 100 UNITS/ML MDV SQ SCH (06:49)
[2018-05-04] MEDS: INSULIN SLIDING SCALE (NOVOLOG) 1 VIAL SQ SCH ×2 (06:50→12:22)
[2018-05-04] MEDS: INSULIN (LEVEMIR) 100 UNITS/ML UNITS SQ SCH (06:50)
--- NOTE | 2018-05-04 09:00 | PN ---
Progress Note (short form) - Note Progress Note: RENAL All labs notes reviewed Eating breakfast left finger debrided Still tip is black swollen taking pain meds dialyzed sat 4 kg removed PLan is for out pt Nolan Louieseayesha how finger goes in 1 week Doubt Antibiotics will work Next HD friday case d/w pt in detail
[2018-05-04] MEDS: PANTOPRAZOLE 40 MG TABLET (FP) PO SCH (09:38)
[2018-05-04] MEDS: MIDODRINE HCL 5 MG TABLET PO SCH (09:38)
[2018-05-04] MEDS: ASPIRIN COATED 81 MG TABLET.EC PO SCH (09:39)
[2018-05-04] MEDS: SEVELAMER CARBONATE 800 MG TAB (FP) PO SCH ×2 (09:39→12:22)
[2018-05-04] MEDS: HEPARIN NA (PORCINE) 5,000 UNITS/ML 1ML VIAL SQ SCH (09:40)
[2018-05-04] MEDS ORDERED: INSULIN (NOVOLOG) ASPART 100 UNITS/ML 10ML VIAL ONE (12:15)
--- NOTE | 2018-05-04 13:00 | PN ---
Progress Note, Physician Chief Complaint: left small finger dry gangrene History of Present Illness: 57 yo male PMH ESRD on HD with right upper arm fistula, s/p ray amputation of right middle finger, chronic osteomyelitis and dry gangrene left small finger. He has been stable postoperatively. - Current Medication List Current Medications: Active Medications Acetaminophen (Tylenol -) 325 mg PO Q3H PRN PRN Reason: PAIN LEVEL 1-5 Last Admin: 05/03/18 11:26 Dose: 325 mg Aspirin (Ecotrin -) 81 mg PO DAILY [facility] Last Admin: 05/04/18 09:39 Dose: 81 mg Atorvastatin Calcium (Lipitor -) 40 mg PO HS [facility] Last Admin: 05/03/18 21:34 Dose: 40 mg Gabapentin (Neurontin -) 100 mg PO HS [facility] Last Admin: 05/03/18 21:34 Dose: 100 mg Heparin Sodium (Porcine) (Heparin -) 5,000 unit SQ BID [facility] Last Admin: 05/04/18 09:40 Dose: 5,000 unit Insulin Aspart (Novolog Vial Sliding Scale -) 1 vial SQ [facility]; Protocol Last Admin: 05/04/18 12:22 Dose: Not Given Insulin Aspart (Novolog Mix 70/30 Vial) 24 units SQ BIDAC [facility] Last Admin: 05/04/18 06:49 Dose: 24 units Insulin Detemir (Levemir Vial) 34 units SQ DAILY@0700 [facility] Last Admin: 05/04/18 06:50 Dose: 34 units Midodrine (Proamatine -) 10 mg PO DAILY [facility] Last Admin: 05/04/18 09:38 Dose: 10 mg Oxycodone HCl (Roxicodone -) 10 mg PO Q6H PRN PRN Reason: PAIN LEVEL 1-5 Last Admin: 05/04/18 06:46 Dose: 10 mg Pantoprazole Sodium (Protonix -) 40 mg PO DAILY [facility] Last Admin: 05/04/18 09:38 Dose: 40 mg Sevelamer Carbonate (Renvela -) 1,600 mg PO TIDCM [facility] Last Admin: 05/04/18 12:22 Dose: 1,600 mg - Objective Vital Signs: Vital Signs Temperature 97.9 F 05/04/18 08:10 Pulse Rate 66 05/04/18 08:10 Respiratory Rate 16 05/04/18 08:10 Blood Pressure 140/72 05/04/18 08:10 O2 Sat by Pulse Oximetry (%) 98 05/04/18 08:00 Labs: CBC, BMP 04/30/18 07:30 04/30/18 11:00 INR, PTT INR 1.02 (0.83-1.09) 04/30/18 10:25 Problem List - Problems (1) Osteomyelitis Assessment/Plan: 57yo male MMP dry gangrene of left small finger POD#2 s/p revision amputation of left small finger MRSA from bone culture Elevation of left hand while in bed glycemic control local wound care f/u cultures adequate analgesia discharge per primary team will follow Code(s): M86.9 - OSTEOMYELITIS, UNSPECIFIED Qualifiers: Osteomyelitis type: chronic multifocal Osteomyelitis location: hand Laterality: left Qualified Code(s): M86.342 - Chronic multifocal osteomyelitis , left hand (2) Dry gangrene Code(s): I96 - GANGRENE, NOT ELSEWHERE CLASSIFIED (3) Cellulitis of left hand Code(s): L03.114 - CELLULITIS OF LEFT UPPER LIMB (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
--- NOTE | 2018-05-04 13:13 | DS ---
Physical Examination Vital Signs: Vital Signs Temperature 97.9 F 05/04/18 08:10 Pulse Rate 66 05/04/18 08:10 Respiratory Rate 16 05/04/18 08:10 Blood Pressure 140/72 05/04/18 08:10 O2 Sat by Pulse Oximetry (%) 98 05/04/18 08:00 Findings/Remarks: patient seen and examined. Comfortable Pain under control Afebrile Leon to go home Constitutional: Yes: No Distress, Calm Eyes: Yes: Conjunctiva Clear Neck: Yes: Supple Cardiovascular: Yes: Regular Rate and Rhythm Respiratory: Yes: Diminished Gastrointestinal: Yes: Soft Extremities: Yes: Other (Left hand dressing in place) Edema: No Wound/Incision: Yes: Dressing Dry and Intact Neurological: Yes: Alert Psychiatric: Yes: Alert Labs: CBC, BMP 04/30/18 07:30 04/30/18 11:00 Discharge Summary Reason For Visit: CELLULITIS OF LEFT HAND Current Active Problems Cellulitis of left hand (Acute) Dry gangrene (Acute) Finger osteomyelitis, left (Acute) Stenosis of artery of upper extremity (Acute) Hospital Course: in summary 57 yo male with past medical history of end-stage renal disease--on dialysis with right upper arm fistula, s/p ray amputation of right middle finger, chronic osteomyelitis and dry gangrene left small finger. ---status post debridement overall doing okay Wound culture--growing Escherichia coli/and enterococcus/MRSA Amputation recommended--- likely unable to heal. Patient refuses amputation Discussed in detail with ID Discharge on antibiotics///Vanco and Cefazolin with dilaysis --- for 5 more weeks--- As ordered Follow with surgeon Medications reconciled Patient in agreement Discussed in detail with case briefer/nursing staff also Patient also to follow up with his PMD-- Discharge time--- approximately 25 minutes--- examining documenting as well as coordinating care. Condition: Stable - Instructions Diet, Activity, Other Instructions: Postoperative instructions: You had a revision amputation of left small finger on 04/30/[address]James Dean of [facility]. Activity: Resume your usual activities gradually, but no heavy exertion or lifting more than 10-15 pounds for 4-6 weeks. Eat lightly at first, but advance to your usual diet as tolerated. Pain: For pain, you may use and alternate Tylenol (acetaminophen) 1-2 pills and/ or ibuprofen 200 mg (1-3 pills) every 6 hours each as needed; this means that you can take one OR the other at 3-hour intervals. If you are prescribed a Tylenol/narcotic combination for severe pain, use it instead of plain Tylenol as needed and switch back when your pain starts decreasing. Do not take more than 4000 mg of acetaminophen in a day. Take medications as prescribed or indicated on the labeling. Follow-up: Call Dr. Dean' office at [phone] to make your postop appointment (Friday in approximately 2 weeks after surgery as advised). Clinic is held in the [facility] on the first floor of [facility]. Call the office if you have: * increasing pain not responsive to pain medication * fever of 101F or higher * unusual or increasing bleeding or drainage from wounds * increasing redness or swelling at wound sites Also, see your primary medical doctor within 1-2 weeks. Referrals: Singh Sandra MD [Staff Physician] - Ginny Lloyd MD [Staff Physician] - Disposition: HOME - Home Medications Comprehensive Discharge Medication List: Ambulatory Orders Albuterol 2.5/Ipratropium 0.5 [Duoneb -] 1 amp NEB TID 04/27/18 Aspirin [Ecotrin] 81 mg PO DAILY 04/27/18 Atorvastatin Ca [Lipitor] 40 mg PO HS 04/27/18 Esomeprazole Magnesium [Nexium 24Hr] 40 mg PO DAILY 04/27/18 Fluticasone/Vilanterol [Breo Ellipta 200-25 Mcg INH] 1 each IH DAILY 04/27/18 Folic Acid/Vit B Complex and C [Renal-Kelly Tablet] 0.8 mg PO DAILY 04/27/18 Gabapentin [Neurontin -] 100 mg PO DAILY 04/27/18 Loratadine [Claritin] 10 mg PO DAILY 04/27/18 Midodrine HCl 10 mg PO TID 04/27/18 Olopatadine HCl [Pataday] 1 drop OU DAILY 04/27/18 Omeprazole 40 mg PO DAILY 04/27/18 Sevelamer Carbonate [Renvela -] 1,600 mg PO TID 04/27/18 Zolpidem Tartrate [Ambien] 10 mg PO DAILY 04/27/18 Insulin (Levemir) [Levemir Vial] 34 units SQ DAILY@0700 units 05/03/18 Insulin (Novolog 70/30) [Novolog Mix 70/30 Vial -] 24 units SQ BIDAC units 10/15 Vancomycin/0.9 % Sod Chloride [Vanco 1.25 gm/150 ml-0.9% NaCl] 1.25 gm IV Q48H # 18 plast..bag 05/03/18 oxyCODONE HCL [Roxicodone -] 10 mg PO Q6H PRN #30 tablet MDD 4 05/03/18 Acetaminophen [Tylenol .Regular Strength -] 325 mg PO Q3H PRN tablet 05/04/18 Atorvastatin Ca [Lipitor] 40 mg PO HS tablet 05/04/18 Gabapentin [Neurontin -] 100 mg PO HS capsule 05/04/18 Insulin (Novolog 70/30) [Novolog Mix 70/30 Vial -] 24 units SQ BIDAC units 11/14 Midodrine HCl [Proamatine -] 10 mg PO DAILY 30 Days #30 tablet 05/04/18 Vancomycin 1 gm Premix - 1.2 gm with dialysis #1 bag 05/04/18 x 5 more weeks Cefazolin 2-2-3 gm with dilaysis -- tues/thurs/sat-- x 6 weeks
--- NOTE | 2018-05-04 13:17 | PN ---
Progress Note, Physician History of Present Illness: patient doing well no issues - Current Medication List Current Medications: Active Medications Acetaminophen (Tylenol -) 325 mg PO Q3H PRN PRN Reason: PAIN LEVEL 1-5 Last Admin: 05/03/18 11:26 Dose: 325 mg Aspirin (Ecotrin -) 81 mg PO DAILY [facility] Last Admin: 05/04/18 09:39 Dose: 81 mg Atorvastatin Calcium (Lipitor -) 40 mg PO HS [facility] Last Admin: 05/03/18 21:34 Dose: 40 mg Gabapentin (Neurontin -) 100 mg PO HS [facility] Last Admin: 05/03/18 21:34 Dose: 100 mg Heparin Sodium (Porcine) (Heparin -) 5,000 unit SQ BID [facility] Last Admin: 05/04/18 09:40 Dose: 5,000 unit Insulin Aspart (Novolog Vial Sliding Scale -) 1 vial SQ [facility]; Protocol Last Admin: 05/04/18 12:22 Dose: Not Given Insulin Aspart (Novolog Mix 70/30 Vial) 24 units SQ BIDAC [facility] Last Admin: 05/04/18 06:49 Dose: 24 units Insulin Detemir (Levemir Vial) 34 units SQ DAILY@0700 [facility] Last Admin: 05/04/18 06:50 Dose: 34 units Midodrine (Proamatine -) 10 mg PO DAILY [facility] Last Admin: 05/04/18 09:38 Dose: 10 mg Oxycodone HCl (Roxicodone -) 10 mg PO Q6H PRN PRN Reason: PAIN LEVEL 1-5 Last Admin: 05/04/18 06:46 Dose: 10 mg Pantoprazole Sodium (Protonix -) 40 mg PO DAILY [facility] Last Admin: 05/04/18 09:38 Dose: 40 mg Sevelamer Carbonate (Renvela -) 1,600 mg PO TIDCM [facility] Last Admin: 05/04/18 12:22 Dose: 1,600 mg - Objective Vital Signs: Vital Signs Temperature 97.9 F 05/04/18 08:10 Pulse Rate 66 05/04/18 08:10 Respiratory Rate 16 05/04/18 08:10 Blood Pressure 140/72 05/04/18 08:10 O2 Sat by Pulse Oximetry (%) 98 05/04/18 08:00 Constitutional: Yes: No Distress, Calm Cardiovascular: Yes: Regular Rate and Rhythm Respiratory: Yes: Regular, CTA Bilaterally Gastrointestinal: Yes: Normal Bowel Sounds, Soft Musculoskeletal: Yes: WNL Extremities: Yes: Other Wound/Incision: Yes: Dressing Dry and Intact Neurological: Yes: Alert, Oriented Psychiatric: Yes: Alert, Oriented Labs: CBC, BMP 04/30/18 07:30 04/30/18 11:00 INR, PTT INR 1.02 (0.83-1.09) 04/30/18 10:25 Assessment/Plan Problem List - Problems (1) Cellulitis of left hand Code(s): L03.114 - CELLULITIS OF LEFT UPPER LIMB (2) Stenosis of artery of upper extremity Code(s): I70.208 - UNSP ATHSCL MCGRATH ARTERIES OF EXTREMITIES, OTH EXTREMITY (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
[2018-05-04 15:12] VITALS: BP 131/70; PULSE 84; TEMP 97.6
--- NOTE | 2018-05-04 15:21 | PATH ---
Surgical Pathology Report Patient Name: KIANNA MATHEWS [facility]. Rec. #: [id number] /Age/Gender: 1960 (Age: 57) / M Account: [id number] Location: [address] [place] [address]/[facility] Taken: 04/30/2018 Received: 05/01/2018 Reported: 05/04/2018 Physicians: Shira Mckeon M.D. Specimen(s) Received LEFT LITTLE FINGER Clinical History Ganglion /cellulitis in left hand Final Diagnosis LITTLE FINGER, LEFT, EXCISION: DIGIT WITH ACUTE AND CHRONIC INFLAMMATION AND ULCERATION. UNDERLYING BONE WITH ACUTE OSTEOMYELITIS INVOLVING SURGICAL MARGIN. SKIN AND SOFT TISSUE MARGINS ARE VIABLE. Electronically Signed Lian Hamilton M.D. Gross Description Received in formalin, labeled "left little finger" are irregular portions of skin and soft tissue and small portion of bone measuring 2.0 x 2.0 x 1.5 cm. The skin surface shows ulceration/defect. The resection margin is inked blue. The specimen is serially sectioned and entirely submitted in 3 cassettes, with a small portion of bone in cassette #3 after brief decalcification. KWS/05/01/2018 db/05/01/2018
--- NOTE | 2018-05-18 18:40 | OP ---
DATE OF OPERATION: 04/30/2018 PREOPERATIVE DIAGNOSIS: Dry gangrene, left small finger distal tip. POSTOPERATIVE DIAGNOSIS: Dry gangrene, left small finger distal tip, [id number] osteomyelitis. PROCEDURE: Revision amputation, left small finger distal joint. ATTENDING SURGEON: Erik Dean MD EXTRUSION PRESS SUPERVISOR: No one. ANESTHESIOLOGIST: ROYER Drake ANESTHESIA TYPE: General with local. Local consisted of 0.5% Marcaine, a total of 10 mL given in a digital block fashion. ESTIMATED BLOOD LOSS: 2 mL INTRAVENOUS FLUID REPLACED: Crystalloid 400 mL. INSTRUMENTS USED FOR DEBRIDEMENT: Rongeur, scissors, and scalpel. SPECIMEN: Left small finger tip, wound culture and bone culture. INDICATION: Patient is presenting with a history of dry gangrene, [id number] osteomyelitis, exposed distal phalanx with purulent drainage. He was counseled regarding risks, benefits, and alternatives to revision amputation, signed informed consent, was taken for the procedure. DESCRIPTION OF PROCEDURE: Patient was brought to the operating room, placed in supine position on the operating table with the left arm extended at 90 degrees perpendicular to the body's midline axis. Lower extremities had SCDs placed to compression. He was induced with anesthesia. LMA was placed without incident by Anesthesia. We then turned our attention to a formal timeout, identifying the operative site and digit; it was the left small finger. The patient was then sterilely prepped and draped into a standard surgical field. Upon agreement of the procedure, the patient's left arm was exsanguinated. We began to isolate the left small finger. With the pressure inflated to 250 mmHg, we turned our attention to the left small finger. A fishmouth incision was scribed to bias toward the volar aspect, to exclude the distal phalanx of the left small finger. It was incised with a 15-blade scalpel, deepened and widened through the subcutaneous tissue. Care was taken to dissect down to the bone at the distal interphalangeal joint. Cultures were sent. Immediately with a gush of pus from the distal tip, the cultures that were sent along with the mid shaft of the left small finger distal phalanx which was exposed, was also sent for culture and sensitivity. We irrigated the site copiously with sterile irrigation and debrided back to the distal interphalangeal joint which appeared relatively uninvolved in the process. Care was taken to take all nonviable and obviously, grossly infected tissue back to the distal interphalangeal joint. The head of the proximal phalanx was left unaltered. Flaps were created both volar and distal with bias toward the volar aspect. Once completely debrided with rongeur and scalpel, we turned our attention then to irrigation of the site. With the site grossly clean, we approximated the skin edges with 4-0 nylon in interrupted fashion, using mattress sutures to ablate the flap one to the other and no tendon was identified. With this completed, we turned our attention then to irrigation of the site and closure of the skin. The skin, once approximated with nylon, then had a Xeroform placed with bacitracin. The finger was then dressed with rolled gauze, and patient was awoken from general anesthesia, having tolerated the procedure well. He was returned to Recovery in stable condition. MD MICHELE Mckeon/[id number]
== END 2018-05-04 15:20 | disposition home or self-care (01) | DRG 255 ==
LOC: JER 15:16 → JERBED 16:41 → J5S 04-28 07:05
PROVIDERS: ADMIT Internal Medicine; ATTEND Internal Medicine
PROC: 5A1D70Z Performance of Urinary Filtration, Intermittent, Less than 6 Hours Per Day (ICD-10-PCS; 2018-04-29)
PROC: 0X6W0Z3 Detachment at Left Little Finger, Low, Open Approach (ICD-10-PCS; principal; 2018-04-30 12:00)
DX: E11.52 Type 2 diabetes mellitus with diabetic peripheral angiopathy with gangrene (principal); N18.6 End stage renal disease; L03.114 Cellulitis of left upper limb; I12.0 Hypertensive chronic kidney disease with stage 5 chronic kidney disease or end stage renal disease; I96 Gangrene, not elsewhere classified; M86.142 Other acute osteomyelitis, left hand; Z79.4 Long term (current) use of insulin; I25.10 Atherosclerotic heart disease of native coronary artery without angina pectoris; J44.9 Chronic obstructive pulmonary disease, unspecified; E11.22 Type 2 diabetes mellitus with diabetic chronic kidney disease; Z99.2 Dependence on renal dialysis; Z95.1 Presence of aortocoronary bypass graft; E78.5 Hyperlipidemia, unspecified; E11.65 Type 2 diabetes mellitus with hyperglycemia; E83.39 Other disorders of phosphorus metabolism; D64.9 Anemia, unspecified; E11.69 Type 2 diabetes mellitus with other specified complication; E66.9 Obesity, unspecified; Z68.33 Body mass index [BMI] 33.0-33.9, adult; B96.20 Unspecified Escherichia coli [E. coli] as the cause of diseases classified elsewhere; B95.2 Enterococcus as the cause of diseases classified elsewhere; B95.62 Methicillin resistant Staphylococcus aureus infection as the cause of diseases classified elsewhere
CPT/HCPCS: 36415; 71045-TC-FY; 71275-TC; 73130-TC-LT-FY; 73206-TC-RT; 80048; 80053; 82565; 82962; 84520; 85025; 85027; 85610; 85651; 86704; 86706; 86708; 86803; 87040; 87070; 87075; 87186; 87205; 87340; 88305-TC; 88311-TC; 93005; 93010; 93930; 94760; 99283-25; J0885; J1644

== ENCOUNTER 2018-08-07 11:55 | Emergency (ER) | payer OTHER ==
[2018-08-07 12:12] VITALS: TEMP 97.8; BMI 31.1
--- NOTE | 2018-08-07 12:12 | PDOC ---
History of Present Illness - General Chief Complaint: Chest Pain Stated Complaint: CHEST PAIN Time Seen by Provider: 08/07/18 12:11 History Source: Patient Exam Limitations: No Limitations - History of Present Illness Initial Comments: 08/07/18 12:38 this is a 57 yo M with PMH of ESRD (HD on , , ), DM, PUD, prior bleeding gastric ulcers found on EGD, mesenteric ischemia, CAD s/p CABG august 2017, stents, who presents with 1/10 midline burning abdominal pain radiating to chest and down into pelvis x 3 days. Pain is constant, alleviated by sitting up and exacerbated by lying down, associated with chills and multiple episodes of nbnb vomiting, anorexia and 3 days of constipation. patient states is feels like gastric ulcer pain hes had before. He denies melena, hematochezia, palpitations. he was sob during HD yesterday and was placed on O2. In HD he had 4 kg removed and was told to come back for a session today to remove more fluid. he has increased orthopnea sleeping of 4 pillows as opposed to 3. His last cardiology visit was 4 mo ago with stable TTE, his last GI visit was 1 yr ago with normal EGD. 08/07/18 12:52 08/07/18 12:58 08/07/18 17:04 Beta Faby Contraindications (Core Measure): Yes: Not Prescribed Past History - Past Medical History Allergies/Adverse Reactions: Allergies Allergy/AdvReac Type Severity Reaction Status Date / Time No Known Drug Allergies Allergy Verified 08/07/18 12:18 Home Medications: Ambulatory Orders Albuterol 2.5/Ipratropium 0.5 [Duoneb -] 1 amp NEB TID 04/27/18 Aspirin [Ecotrin] 81 mg PO DAILY 04/27/18 Esomeprazole Magnesium [Nexium 24Hr] 40 mg PO DAILY 04/27/18 Fluticasone/Vilanterol [Breo Ellipta 200-25 Mcg INH] 1 each IH DAILY 04/27/18 Folic Acid/Vit B Complex and C [Renal-Kelly Tablet] 0.8 mg PO DAILY 04/27/18 Gabapentin [Neurontin -] 100 mg PO DAILY 04/27/18 Loratadine [Claritin] 10 mg PO DAILY 04/27/18 Olopatadine HCl [Pataday] 1 drop OU DAILY 04/27/18 Omeprazole 40 mg PO DAILY 04/27/18 Sevelamer Carbonate [Renvela -] 1,600 mg PO TID 04/27/18 Zolpidem Tartrate [Ambien] 10 mg PO DAILY 04/27/18 Insulin (Levemir) [Levemir Vial] 34 units SQ DAILY@0700 units 05/03/18 Acetaminophen [Tylenol .Regular Strength -] 325 mg PO Q3H PRN tablet 05/04/18 Atorvastatin Ca [Lipitor] 40 mg PO HS tablet 05/04/18 Insulin (Novolog 70/30) [Novolog Mix 70/30 Vial -] 24 units SQ BIDAC units 11/14 Calcium Carbonate/Simethicone [Maalox Advanced Tab Chew] 1 each PO DAILY #7 tab.chew 08/07/18 Midodrine HCl [Proamatine -] 10 mg PO ASDIR 08/07/18 Pantoprazole Sodium [Protonix] 40 mg PO DAILY #7 tablet. 08/07/18 Pantoprazole Sodium [Protonix] 40 mg PO DAILY #7 tablet. 08/07/18 Ranitidine HCl [Zantac] 150 mg PO BID #14 tablet 08/07/18 Ranitidine [Zantac -] 150 mg PO BID #14 tablet 08/07/18 Anemia: No Cardiac Disorders: Yes COPD: No DVT: No Diabetes: Yes Dialysis: Yes (TUES,THR,SAT RT ARM DIALYSIS ACCESS) GI Disorders: Yes HTN: Yes Hypercholesterolemia: Yes - Surgical History Cardiac Surgery: Yes (CABG) Orthopedic Surgery: Yes (OR debridement left foot wound) - Immunization History Immunization Up to Date: No - Suicide/Smoking/Psychosocial Hx Smoking Status: No Smoking History: Unknown if ever smoked Have you smoked in the past 12 months: No Number of Cigarettes Smoked Daily: 0 Hx Alcohol Use: No Drug/Substance Use Hx: No Substance Use Type: None Hx Substance Use Treatment: No Review of Systems - Review of Systems Able to Perform ROS?: Yes Is the patient limited Latvian proficient: No Constitutional: Yes: Chills, Weakness. No: Fever HEENTM: No: Nose Congestion, Throat Pain, Difficulty Swallowing Respiratory: Yes: Orthopnea, Shortness of Breath. No: Cough, Wheezing, Productive cough Cardiac (ROS): Yes: Chest Pain. No: Edema, Irregular Heart Rate, Lightheadedness, Palpitations, Syncope ABD/GI: Yes: Constipated, Nausea, Vomiting, Abdominal cramping. No: Abdominal Distended, Blood Streaked Bowels, Diarrhea, Difficulty Swallowing, Rectal Bleeding, Tarry Stools : No: Dysuria Musculoskeletal: No: Back Pain Hematologic/Lymphatic: No: Easy Bleeding, Easy Bruising *Physical Exam - Vital Signs Last Vital Signs Temp Pulse Resp BP Pulse Ox 97.8 F 81 21 H 163/64 98 08/07/18 12:11 08/07/18 15:17 08/07/18 15:17 08/07/18 15:17 08/07/18 15:17 - Physical Exam General Appearance: Yes: Nourished, Appropriately Dressed, Apparent Distress, Moderate Distress HEENT: positive: EOMI, Normal Voice, Symmetrical. negative: Scleral Icterus (R) , Scleral Icterus (L) Neck: positive: Supple. negative: Tender Respiratory/Chest: positive: Lungs Clear, Normal Breath Sounds Cardiovascular: positive: Regular Rhythm, Regular Rate, S1, S2. negative: Edema , JVD Gastrointestinal/Abdominal: positive: Tender (most tender in suprapubic area and midline, mildy tender laterally ), Flat, Soft, Decreased BS (globally ). negative: Distended, Guarding, Rebound, Mass Musculoskeletal: negative: CVA Tenderness Integumentary: positive: Dry, Warm Neurologic: positive: ballast inspector II-XII NML intact (grossly ) Moderate Sedation - Procedure Monitoring Vital Signs: Procedure Monitoring Vital Signs Temperature 97.8 F 08/07/18 12:11 Pulse Rate 81 08/07/18 15:17 Respiratory Rate 21 H 08/07/18 15:17 Blood Pressure 163/64 08/07/18 15:17 O2 Sat by Pulse Oximetry (%) 98 08/07/18 15:17 ED Treatment Course - LABORATORY CBC & Chemistry Diagram: 08/07/18 13:00 08/07/18 14:35 - ADDITIONAL ORDERS Additional order review: Laboratory Results 08/07/18 08/07/18 08/07/18 16:53 14:35 13:00 Sodium 134 L Potassium 4.8 Chloride 96 L Carbon Dioxide 27 Anion Gap 12 BUN 51 H Creatinine 8.5 H* Creat Clearance w eGFR 6.49 Random Glucose 264 H Lactic Acid 1.3 Calcium 7.9 L Phosphorus 6.4 H Magnesium 2.8 H Total Bilirubin 0.4 AST 15 ALT 24 Alkaline Phosphatase 187 H Creatine Kinase 108 Troponin I 0.10 H 0.11 H Total Protein 7.8 Albumin 3.8 Lipase 233 08/07/18 13:00 Sodium Cancelled Potassium Cancelled Chloride Cancelled Carbon Dioxide Cancelled Anion Gap Cancelled BUN Cancelled Creatinine Cancelled Creat Clearance w eGFR Cancelled Random Glucose Cancelled Lactic Acid Calcium Cancelled Phosphorus Magnesium Total Bilirubin Cancelled AST Cancelled ALT Cancelled Alkaline Phosphatase Cancelled Creatine Kinase Cancelled Troponin I Cancelled Total Protein Cancelled Albumin Cancelled Lipase Cancelled 08/07/18 13:00 RBC 4.14 MCV 91.3 MCHC 34.0 RDW 15.7 D MPV 10.4 Neutrophils % 73.3 Lymphocytes % 16.3 D Monocytes % 9.7 Eosinophils % 0.3 Basophils % 0.4 EKG NS 92, poor r progression, normal axis stable st depressions in I, AVL and at elevation in AVR no change from prior 08/07/18 16:48 cxr unremarkable, labs consistent with esrd, trop elevated at baseline with esrd , checked twice, lactate wnl ct abd/pelvis unremarkable. [facility], spoke to a manipulative therapy specialist from [facility] to discuss patient clinical picture most consistent with gerd/gastritis. patient treated with maalox, ppi, pepcid, carafate, iv tylenol will d/c with 7 d script for ppi, maalox and zantac, f/u with dr tristan 08/07/18 16:51 08/07/18 17:05 08/07/18 18:06 - RADIOLOGY Radiology Studies Ordered: Category Date Time Status ABDOMEN & PELVIS CT W/O CONTR [CT] Stat CT Scan 08/07/18 12:50 Completed CXRPORT [CHEST X-RAY PORTABLE*] [RAD] Stat Radiology 08/07/18 12:41 Completed - Medications Given in the ED: ED Medications Discontinued Medications Generic Name Dose Route Start Last Admin Trade Name Freq PRN Reason Stop Dose Admin Acetaminophen 1,000 mg 08/07/18 12:41 08/07/18 13:19 Ofirmev Injection - IVPB 08/07/18 12:42 1,000 mg ONCE ONE Administration Al Hydroxide/Mg Hydroxide 30 ml 08/07/18 15:51 08/07/18 16:08 Mylanta Oral Suspension - PO 08/07/18 15:52 30 ml ONCE ONE Administration Famotidine/Sodium Chloride 20 mg in 50 mls @ 100 mls/hr 08/07/18 12:51 14:23 Pepcid 20 Mg Premixed Ivpb - IVPB 08/07/18 13:20 100 mls/hr ONCE ONE Administration Morphine Sulfate 4 mg 08/07/18 12:41 08/07/18 13:19 Morphine Injection - IVPUSH 08/07/18 12:42 4 mg ONCE ONE Administration Morphine Sulfate 4 mg 08/07/18 14:33 08/07/18 15:09 Morphine Injection - IVPUSH 08/07/18 14:34 4 mg ONCE ONE Administration Ondansetron HCl 4 mg 08/07/18 12:41 08/07/18 13:00 Zofran Injection IVPUSH 08/07/18 12:42 4 mg ONCE ONE Administration Pantoprazole Sodium 40 mg 08/07/18 12:51 08/07/18 13:19 Protonix Iv IVPUSH 08/07/18 12:52 40 mg ONCE ONE Administration Sucralfate 2 gm 08/07/18 16:47 08/07/18 16:57 Carafate - PO 08/07/18 16:48 2 gm ONCE ONE Administration *DC/Admit/Observation/Transfer Diagnosis at time of Disposition: ESRD (end stage renal disease) Gastritis Qualifiers: Gastritis type: unspecified gastritis Chronicity: acute Gastritis bleeding: without bleeding Qualified Code(s): K29.00 - Acute gastritis without bleeding GERD (gastroesophageal reflux disease) Qualifiers: Esophagitis presence: esophagitis presence not specified Qualified Code(s): K21.9 - Gastro-esophageal reflux disease without esophagitis Diabetes Qualifiers: Diabetes mellitus type: type 2 Diabetes mellitus terminal carman insulin use: with terminal carman use Diabetes mellitus complication status: with other specified complication Qualified Code(s): E11.69 - Type 2 diabetes mellitus with other specified complication - Discharge Dispostion Disposition: HOME Condition at time of disposition: Stable Decision to Admit order: No - Prescriptions Prescriptions: Calcium Carbonate/Simethicone [Maalox Advanced Tab Chew] 1 each PO DAILY #7 tab.chew Pantoprazole Sodium [Protonix] 40 mg PO DAILY #7 tablet.dr Pantoprazole Sodium [Protonix] 40 mg PO DAILY #7 tablet.dr Moseleyitidine [Zantac -] 150 mg PO BID #14 tablet Ranitidine HCl [Zantac] 150 mg PO BID #14 tablet - Referrals Referrals: Singh Sandra MD [Primary Care Provider] - José Tristan MD [Staff Physician] - - Patient Instructions Additional Instructions: your stomach pain is most likely caused by gastritis. We performed a CT scan of your abdomen and pelvis, which was normal. Your blood work did not show anything suggestive of infection or compromised blood supply to intestines. Please take the 3 medications we prescribed to your pharmacy: Zantac 150 mg twice a day Pantoprazole 40 mg daily Maalox daily You can also take over the counter Tylenol for pain and laxatives for constipation as described on the labels. Please follow up with Dr Tristan as soon as possible Return to ER if youhave intractable vomiting, fever or notice blood in your vomit or stool. Print Language: SPA - Post Discharge Activity
[2018-08-07] MEDS ORDERED: ONDANSETRON 4 MG/2 ML VIAL IVPUSH ONE (12:41)
[2018-08-07] MEDS ORDERED: morphine CARPU-JECT 4 MG/1 ML DISP.SYRIN IVPUSH ONE ×2 (12:41→14:33)
[2018-08-07] MEDS ORDERED: ACETAMINOPHEN 1000 MG/100 ML VIAL (NON FORMULARY) IVPB ONE (12:41)
[2018-08-07] MEDS ORDERED: FAMOTIDINE 20 MG/50 ML IVPB 20 MG/50 ML MG IVPB ONE ×5 (12:51→18:42)
[2018-08-07] MEDS ORDERED: PANTOPRAZOLE SODIUM 40 MG VIAL IVPUSH ONE ×2 (12:51→18:06)
[2018-08-07] MEDS ORDERED: morphine SULFATE 4 MG/ML VIAL ONE ×2 (13:00→15:08)
[2018-08-07] MEDS ORDERED: ONDANSETRON 4 MG/2 ML VIAL ONE (13:00)
[2018-08-07] MEDS ORDERED: PANTOPRAZOLE SODIUM 40 MG VIAL ONE (13:00)
[2018-08-07] MEDS ORDERED: ACETAMINOPHEN INJECTION 100 ML IVPB ONE (13:00)
[2018-08-07 13:29] LABS: BASO % 0.4 % (0-2.0); EOS % 0.3 % (0-4.5); HEMATOCRIT 37.8 % (35.4-49); HEMOGLOBIN 12.8 GM/dL (11.7-16.9); LYMPH % 16.3 % (8-40); MEAN CELL VOLUME 91.3 fl (80-96); MEAN PLT VOLUME 10.4 fl (7.5-11.1); MONO % 9.7 % (3.8-10.2); NEUT % 73.3 % (42.8-82.8); PLATELET COUNT 203 K/MM3 (134-434); RBC 4.14 M/mm3 (4.00-5.60); RDW 15.7 % (11.9-15.9); WHITE BLOOD COUNT 5.8 K/mm3 (4.0-10.0)
--- NOTE | 2018-08-07 14:34 | PDOC ---
Attending Attestation - HPI HPI: 08/07/18 14:39 The patient is a 57 year old male, with a significant PMH of ESRD on dialysis (), diabetes mellitus, PUD, prior bleeding gastric ulcers found on EGD, mesenteric ischemia, coronary artery disease s/p CABG 2017, who presents to the emergency department with 4 days of intermittent epigastric abdominal pain. The patient states the epigastric abdominal pain began Friday when he was supposed to have retinal detachment surgery. However, secondary to the epigastric pain had to postpone the procedure. The patient states the epigastric abdominal pain is a pressure like pain, radiating down the abdomen, with associated intermittent emesis (non bloody, non bilious), chills and decreased appetite. The patient states his pain feels different than his history of GI ulcers. The patient denies history of abdominal surgeries. Denies sick contacts or recent travel. The patient denies chest pain, shortness of breath, headache and dizziness. Denies fever, diarrhea and constipation. Denies dysuria, frequency, urgency and hematuria. Allergies: NKDA Documentation prepared by Nader Ingram, acting as medical coding manager for Mateus Machado MD. - Physicial Exam PE: 08/07/18 14:40 GENERAL: Awake, alert, and fully oriented, in no acute distress HEAD: No signs of trauma EYES: PERRLA, EOMI, sclera anicteric, conjunctiva clear ENT: Auricles normal inspection, hearing grossly normal, nares patent, oropharynx clear without exudates. Moist mucosa NECK: Normal ROM, supple, no lymphadenopathy, JVD, or masses LUNGS: Breath sounds equal, clear to auscultation bilaterally. No wheezes, and no crackles HEART: Regular rate and rhythm, normal S1 and S2, no murmurs, rubs or gallops ABDOMEN: (+) Diffuse abdominal tenderness. No rebound or guarding. Soft, normoactive bowel sounds. No masses EXTREMITIES: (+) RUE fistula. Normal range of motion, no edema. No clubbing or cyanosis. No cords, erythema, or tenderness NEUROLOGICAL: Cranial nerves II through XII grossly intact. Normal speech. SKIN: Warm, Dry, normal turgor, no rashes or lesions noted. <Nader Ingram - Last Filed: 08/07/18 14:39> - Resident Resident Name: Anjana Stearns - ED Attending Attestation I have performed the following: I have examined & evaluated the patient, The case was reviewed & discussed with the resident, I agree w/resident's findings & plan, Exceptions are as noted - Medical Decision Making 08/07/18 15:22 A portion of this note was documented by scribe services under my direction. I have reviewed the details of the note, within reason, and agree with the documentation with the following case summary and management plan written by me. Patient treated in the ED. Nursing notes are reviewed and incorporated into the medical decision-making. Vital signs reviewed. Peripheral IV access obtained by the nurse, laboratory studies are drawn and sent, reviewed and interpreted by myself. Vital Signs Temp Pulse Resp BP Pulse Ox 97.8 F 81 21 H 163/64 98 08/07/18 12:11 08/07/18 15:17 08/07/18 15:17 08/07/18 15:17 08/07/18 15:17 57-year-old male with past medical history of ESRD disease, diabetes, peptic ulcer disease, coronary disease presents with diffuse abdominal pain. The patient reports having 4 days of this initially intermittent and now persistent abdominal pain. Patient denies fevers but did report some nausea. Head and some vomiting but no diarrhea. Unknown last bowel movement. Denies prior history of abdominal surgeries. Patient denies chest pain but reports diffuse abdominal pain. Differential includes gastritis, pancreatitis, colitis, appendicitis, other acute Pathology. I Agree with the Plan to Obtain Labs and CAT Scan Abdomen Pelvis and Reassess. 08/07/18 16:51 CAT scan demonstrates tiny bilateral renal calcific densities compatible with nonobstructing stones. Straining of the perinephric fat which is nonspecific. No evidence of hydroureter nephrosis or obstructing stone. No diverticulitis. No acute CT process. Chest xray reviewed. No acute findings. CBC, BMP 08/07/18 13:00 08/07/18 14:35 CMP Sodium 134 mmol/L (136-145) L 08/07/18 14:35 Potassium 4.8 mmol/L (3.5-5.1) 08/07/18 14:35 Chloride 96 mmol/L (98-107) L 08/07/18 14:35 Carbon Dioxide 27 mmol/L (21-32) 08/07/18 14:35 Anion Gap 12 MMOL/L (8-16) 08/07/18 14:35 BUN 51 mg/dL (7-18) H 08/07/18 14:35 Creatinine 8.5 mg/dL (0.55-1.3) H* 08/07/18 14:35 Creat Clearance w eGFR 6.49 (>60) 08/07/18 14:35 Random Glucose 264 mg/dL (74-106) H 08/07/18 14:35 Lactic Acid 1.3 mmol/L (0.4-2.0) 08/07/18 13:00 Calcium 7.9 mg/dL (8.5-10.1) L 08/07/18 14:35 Phosphorus 6.4 mg/dL (2.5-4.9) H 08/07/18 14:35 Magnesium 2.8 mg/dL (1.8-2.4) H 08/07/18 14:35 Total Bilirubin 0.4 mg/dL (0.2-1) 08/07/18 14:35 AST 15 U/L (15-37) 08/07/18 14:35 ALT 24 U/L (13-61) 08/07/18 14:35 Alkaline Phosphatase 187 U/L (45-117) H 08/07/18 14:35 Creatine Kinase 108 U/L (26-308) 08/07/18 14:35 Troponin I 0.11 ng/ml (0.00-0.05) H 08/07/18 14:35 Total Protein 7.8 g/dl (6.4-8.2) 08/07/18 14:35 Albumin 3.8 g/dl (3.4-5.0) 08/07/18 14:35 Lipase 233 U/L (73-393) 08/07/18 14:35 Labs reviewed. Unremarkable. 08/07/18 16:52 Pt's troponin is 0.11, but pt never endorsed chest pain. Has ESRD and is on dialysis. Will repeat troponin, but I doubt ACS at this time. Will try to reach out to pt's private branch exchange service adviser. If patient reports feeling better, will treat as gastritis and have patient follow up as an outpatient. <Mateus Machado - Last Filed: 08/07/18 16:52> Heart Score/ECG Review #1 ECG reviewed & interpreted by me at: 12:00 08/07/18 15:22 NSR 92, left axis deviation TWI I, aVL, no amee, QTC 462, incomplete RBBB <Mateus Machado - Last Filed: 08/07/18 16:52>
[2018-08-07 15:18] VITALS: BP 163/64; PULSE 81
[2018-08-07] MEDS ORDERED: MAG HYDROX/AL HYDROX/SIMETH 30 ML UNIT-DOSE CUP PO ONE (15:51)
[2018-08-07] MEDS ORDERED: MAG HYDROX/AL HYDROX/SIMETH 30 ML UNIT-DOSE CUP ONE (16:07)
[2018-08-07 16:11] LABS: ALBUMIN 3.8 g/dl (3.4-5.0); ALK PHOS 187 U/L (45-117); ANION GAP 12 MMOL/L (8-16); BILIRUBIN,TOTAL 0.4 mg/dL (0.2-1); BLOOD UREA NITROGEN 51 mg/dL (7-18); CALCIUM 7.9 mg/dL (8.5-10.1); CHLORIDE 96 mmol/L (98-107); CO2 27 mmol/L (21-32); GLUCOSE,RANDOM 264 mg/dL (74-106); LIPASE 233 U/L (73-393); MAGNESIUM 2.8 mg/dL (1.8-2.4); PHOSPHOROUS 6.4 mg/dL (2.5-4.9); POTASSIUM 4.8 mmol/L (3.5-5.1); SGOT/AST 15 U/L (15-37); SGPT/ALT 24 U/L (13-61); SODIUM 134 mmol/L (136-145); TOT PROT 7.8 g/dl (6.4-8.2)
[2018-08-07 16:42] LABS: CREATININE 8.5 mg/dL (0.55-1.3)
[2018-08-07] MEDS ORDERED: SUCRALFATE 1 GM TABLET (FP) PO ONE (16:47)
[2018-08-07] MEDS ORDERED: SUCRALFATE 1 GM TABLET (FP) ONE (16:57)
[2018-08-07] MEDS ORDERED: ACETAMINOPHEN 650 MG/20.3 ML ORAL SOLUTION (CUPS) PO ONE (18:06)
[2018-08-07] MEDS ORDERED: ACETAMINOPHEN 650 MG/20.3 ML ORAL SOLUTION (CUPS) ONE (18:42)
[2018-08-07] MEDS ORDERED: PANTOPRAZOLE SODIUM 40 MG/100 ML BAG IVPB ONE (18:42)
--- NOTE | 2018-08-08 14:42 | EKG ---
Test Reason : Blood Pressure : / mmHG Vent. Rate : 092 BPM Atrial Rate : 092 BPM P-R Int : 146 ms QRS Dur : 094 ms QT Int : 374 ms P-R-T Axes : 051 -61 104 degrees QTc Int : 462 ms NORMAL SINUS RHYTHM POSSIBLE LEFT ATRIAL ENLARGEMENT LEFT AXIS DEVIATION INCOMPLETE RIGHT BUNDLE BRANCH BLOCK ABNORMAL ECG Confirmed by Eladio Landry MD ([id number]) on 08/08/2018 2:42:26 PM Referred By: Confirmed By:Eladio Landry MD
== END 2018-08-07 19:25 | disposition home or self-care (01) ==
LOC: JER 11:55
PROC: 3E033GC Introduction of Other Therapeutic Substance into Peripheral Vein, Percutaneous Approach (ICD-10-PCS; principal; 2018-08-07)
PROC: 3E033GC Introduction of Other Therapeutic Substance into Peripheral Vein, Percutaneous Approach (ICD-10-PCS; 2018-08-07)
PROC: 3E033GC Introduction of Other Therapeutic Substance into Peripheral Vein, Percutaneous Approach (ICD-10-PCS; 2018-08-07)
PROC: 3E033NZ Introduction of Analgesics, Hypnotics, Sedatives into Peripheral Vein, Percutaneous Approach (ICD-10-PCS; 2018-08-07)
PROC: 3E033NZ Introduction of Analgesics, Hypnotics, Sedatives into Peripheral Vein, Percutaneous Approach (ICD-10-PCS; 2018-08-07)
PROC: 3E033NZ Introduction of Analgesics, Hypnotics, Sedatives into Peripheral Vein, Percutaneous Approach (ICD-10-PCS; 2018-08-07)
DX: K29.00 Acute gastritis without bleeding (principal); K21.9 Gastro-esophageal reflux disease without esophagitis; I13.11 Hypertensive heart and chronic kidney disease without heart failure, with stage 5 chronic kidney disease, or end stage renal disease; E11.22 Type 2 diabetes mellitus with diabetic chronic kidney disease; N18.6 End stage renal disease; N17.8 Other acute kidney failure; Z99.2 Dependence on renal dialysis; Z79.4 Long term (current) use of insulin; Z95.1 Presence of aortocoronary bypass graft; Z95.5 Presence of coronary angioplasty implant and graft; Z87.11 Personal history of peptic ulcer disease
CPT/HCPCS: 36415; 71045-TC-FY; 74176-TC; 80053; 82550; 83605; 83690; 83735; 84100; 84484; 85025; 93005; 93010; 96365; 96366; 96375; 96376; 99285-25; J0131

== ENCOUNTER 2018-12-18 15:28 | Inpatient (IN) | payer OTHER ==
--- NOTE | 2018-12-18 15:37 | PDOC ---
Rapid Medical Evaluation Time Seen by Provider: 12/18/18 15:32 Medical Evaluation: Allergies Allergy/AdvReac Type Severity Reaction Status Date / Time No Known Drug Allergies Allergy Verified 08/07/18 12:18 12/18/18 15:32 I have performed a brief in-person evaluation of this patient. The patient presents with a chief complaint of: R 5th digit wound x 2 weeks. H/ o IDDM, s/p multiple amps to R hand, ESRD on HD via RUE graft (T/T/S) Pertinent physical exam findings: Pt s/p multiple amputations to R hand including partial amp of R 5th digit w/ ?gangrene to site w/ diffuse erythema that extends into hand I have ordered the following:labs/XR The patient will proceed to the ED for further evaluation. Discharge Disposition - Diagnosis Cellulitis of finger Qualifiers: Laterality: right Qualified Code(s): L03.011 - Cellulitis of right finger - Referrals - Patient Instructions - Post Discharge Activity
[2018-12-18] MEDS ORDERED: PIPERACILLIN/TAZOB 3.375 GM 3.375 GM in DEXTROSE 5%-WATER - 50 ML IVPB ONE (16:34)
[2018-12-18] MEDS ORDERED: VANCOMYCIN 1,000 MG in DEXTROSE 5%-WATER - 250 ML IVPB ONE (16:34)
--- NOTE | 2018-12-18 16:34 | PDOC ---
History of Present Illness - General Chief Complaint: Wound Stated Complaint: NECROTIC LT PINKY Time Seen by Provider: 12/18/18 15:32 History Source: Patient Exam Limitations: No Limitations Past History - Travel Traveled outside of the country in the last 30 days: No Close contact w/someone who was outside of country & ill: No - Past Medical History Allergies/Adverse Reactions: Allergies Allergy/AdvReac Type Severity Reaction Status Date / Time No Known Drug Allergies Allergy Verified 12/18/18 15:33 Home Medications: Ambulatory Orders Albuterol 2.5/Ipratropium 0.5 [Duoneb -] 1 amp NEB TID 04/27/18 Aspirin [Ecotrin] 81 mg PO DAILY 04/27/18 Esomeprazole Magnesium [Nexium 24Hr] 40 mg PO DAILY 04/27/18 Folic Acid/Vit B Complex and C [Renal-Kelly Tablet] 0.8 mg PO DAILY 04/27/18 Loratadine [Claritin] 10 mg PO DAILY 04/27/18 Olopatadine HCl [Pataday] 1 drop OU DAILY 04/27/18 Omeprazole 40 mg PO DAILY 04/27/18 Sevelamer Carbonate [Renvela -] 1,600 mg PO TID 04/27/18 Acetaminophen [Tylenol .Regular Strength -] 325 mg PO Q3H PRN tablet 05/04/18 Atorvastatin Ca [Lipitor] 40 mg PO HS tablet 05/04/18 Insulin (Novolog 70/30) [Novolog Mix 70/30 Vial -] 24 units SQ BIDAC units 11/14 Midodrine HCl [Proamatine -] 10 mg PO ASDIR 08/07/18 Pantoprazole Sodium [Protonix] 40 mg PO DAILY #7 tablet.dr 08/07/18 Calcium Carbonate/Simethicone [Maalox Advanced Tab Chew] 1 each PO DAILY PRN Anemia: No Cardiac Disorders: Yes COPD: No DVT: No Diabetes: Yes Dialysis: Yes (TUES,THR,SAT RT ARM DIALYSIS ACCESS) GI Disorders: Yes HTN: Yes Hypercholesterolemia: Yes - Surgical History Cardiac Surgery: Yes (CABG) Orthopedic Surgery: Yes (OR debridement left foot wound) - Immunization History Immunization Up to Date: No - Suicide/Smoking/Psychosocial Hx Smoking Status: No Smoking History: Unknown if ever smoked Have you smoked in the past 12 months: No Number of Cigarettes Smoked Daily: 0 Hx Alcohol Use: No Drug/Substance Use Hx: No Substance Use Type: None Hx Substance Use Treatment: No Review of Systems - Review of Systems Able to Perform ROS?: Yes Comments:: 12/18/18 17:46 CONSTITUTIONAL: Absent: fever, chills, diaphoresis, generalized weakness, malaise, loss of appetite HEENT: Absent: rhinorrhea, nasal congestion, throat pain, throat swelling, difficulty swallowing, mouth swelling, ear pain, eye pain, visual Changes CARDIOVASCULAR: Absent: chest pain, loss of consciousness, palpitations, irregular heart rate, peripheral edema RESPIRATORY: Absent: cough, shortness of breath, dyspnea with exertion, orthopnea, wheezing, stridor, hemoptysis GASTROINTESTINAL: Absent: abdominal pain, abdominal distension, nausea, vomiting, diarrhea, constipation, melena, hematochezia GENITOURINARY: Absent: dysuria, frequency, urgency, hesitancy, hematuria, flank pain, genital pain MUSCULOSKELETAL: Absent: myalgia, arthralgia, joint swelling SKIN: Present: necrotic pinky Absent: rash, itching, pallor HEMATOLOGIC/IMMUNOLOGIC: Absent: easy bleeding, easy bruising, lymphadenopathy, frequent infections ENDOCRINE: Absent: unexplained weight gain, unexplained weight loss, heat intolerance, cold intolerance NEUROLOGIC: Absent: headache, focal weakness or paresthesias, dizziness, unsteady gait, seizure, mental status changes, bladder or bowel incontinence PSYCHIATRIC: Absent: anxiety, depression, suicidal or homicidal ideation, hallucinations. Is the patient limited Frisian proficient: No *Physical Exam - Vital Signs Last Vital Signs Temp Pulse Resp BP Pulse Ox 97.8 F 84 20 134/58 L 96 12/18/18 15:40 12/18/18 15:40 12/18/18 15:40 12/18/18 15:40 12/18/18 15:40 - Physical Exam Comments: 12/18/18 17:46 GENERAL: Well developed, well nourished. Awake and alert. No acute distress. HEENT: Normocephalic, atraumatic. PERRLA, EOMI. No conjunctival pallor. Sclera are non- icteric. Moist mucous membranes. Oropharynx is clear. NECK: Supple. Full ROM. No JVD. Carotid pulses 2+ and symmetric, without bruits. No thyromegaly. No lymphadenopathy. CARDIOVASCULAR: Regular rate and rhythm. No murmurs, rubs, or gallops. Distal pulses are 2+ and symmetric. PULMONARY: No evidence of respiratory distress. Lungs clear to auscultation bilaterally. No wheezing, rales or rhonchi. ABDOMINAL: Soft. Non-tender. Non-distended. No rebound or guarding. No organomegaly. Normoactive bowel sounds. MUSCULOSKELETAL Normal range of motion at all joints. No bony deformities or tenderness. No CVA tenderness. EXTREMITIES: R 5th finger with exposed distal phalanges. No cyanosis. No clubbing. No edema. No calf tenderness. SKIN: Necrotic tissue from the tip of the R 5th finger to the DIP. Warm and dry. Normal capillary refill. No jaundice. NEUROLOGICAL: Alert, awake, appropriate. Cranial nerves 2-12 intact. No deficits to light touch and temperature in face, upper extremities and lower extremities. No motor deficits in the in face, upper extremities and lower extremities. Normoreflexic in the upper and lower extremities. Normal speech. Toes are down- going bilaterally. Gait is normal without ataxia. PSYCHIATRIC: Cooperative. Good eye contact. Appropriate mood and affect. ED Treatment Course - LABORATORY CBC & Chemistry Diagram: 12/18/18 16:55 12/18/18 16:55 Medical Decision Making - Medical Decision Making 12/18/18 18:05 The patient is a 57-year-old male past medical history of ESRD (HD on , , ) , multiple finger amputations, DM, PUD, prior bleeding gastric ulcers, mesenteric ischemia, CAD, s/p CABG August 2017, stents, who presents to the ER today with a necrotic R 5th finger. The patient states he tried using his topical medications on the wound over the past two weeks, but it has not gotten any better. Denies fevers ,chills, nausea, vomiting, numbness, tingling, weakness to the affected extremity. Pt is R hand dominant. PCP: Dr. Sandra Vascular: Dr. Gonzalez A/P: Necrotic R 5th finger On exam, the distal finger is black, and mottled. Exposed bone noted of the distal phalanges No osteo noted on the hand x-ray however MRI would be indicated at this time Labs, blood cultures,urine ordered EKG, Chest x-ray Vancomycin and Zosyn given after blood cultures Admit for IV abx, and surg evaluation of the R 5th finger Microblog sent to the hospitalists 12/18/18 18:51 Labs grossly normal. No WBC, K+ WNL Sign out given to PAOLO Thakkar. Admit to Med/Surg under Dr. Galloway, will need Dialysis tomorrow Case discussed with Dr. Dean, surgery (hand) Renal consulted *DC/Admit/Observation/Transfer Diagnosis at time of Disposition: ESRD (end stage renal disease), Wet gangrene Cellulitis of finger Qualifiers: Laterality: right Qualified Code(s): L03.011 - Cellulitis of right finger - Discharge Dispostion Condition at time of disposition: Stable Decision to Admit order: Yes - Referrals - Patient Instructions - Post Discharge Activity
[2018-12-18] MEDS ORDERED: PIPERACILLIN/TAZOB 3.375 GM 3.375 GM/50 ML BAG IVPB ONE (17:04)
[2018-12-18 17:12] LABS: BASO % 0.6 % (0-2.0); EOS % 0.9 % (0-4.5); HEMATOCRIT 33.6 % (35.4-49); HEMOGLOBIN 10.8 GM/dL (11.7-16.9); LYMPH % 13.5 % (8-40); MCH 29.8 pg (25.7-33.7); MCHC 32.2 g/dl (32.0-35.9); MEAN CELL VOLUME 92.8 fl (80-96); MEAN PLT VOLUME 9.3 fl (7.5-11.1); MONO % 9.5 % (3.8-10.2); NEUT % 75.5 % (42.8-82.8); PLATELET COUNT 230 K/MM3 (134-434); RBC 3.62 M/mm3 (4.00-5.60); RDW 15.5 % (11.9-15.9); WHITE BLOOD COUNT 8.2 K/mm3 (4.0-10.0)
[2018-12-18] MEDS ORDERED: VANCOMYCIN 1 GRAM (PRE-DOCKED) 1,000 MG/250 ML BAG IVPB ONE (17:32)
[2018-12-18 17:36] LABS: INR 1.11 (0.83-1.09); PROTHROMBIN TIME (PATIENT) 13.1 SEC (9.7-13.0)
[2018-12-18 17:52] LABS: ALBUMIN 3.3 g/dl (3.4-5.0); BILIRUBIN,TOTAL 0.3 mg/dL (0.2-1); BLOOD UREA NITROGEN 67.3 mg/dL (7-18); CALCIUM 8.8 mg/dL (8.5-10.1); POTASSIUM 5.6 mmol/L (3.5-5.1); TOT PROT 7.8 g/dl (6.4-8.2)
[2018-12-18 17:57] LABS: CREATININE 8.4 mg/dL (0.55-1.3)
[2018-12-18] MEDS ORDERED: morphine CARPU-JECT 4 MG/1 ML DISP.SYRIN IVPUSH ONE (18:48)
[2018-12-18] MEDS ORDERED: morphine SULFATE 4 MG/ML VIAL ONE (19:11)
[2018-12-18] MEDS ORDERED: SIMETHICONE PO PRN (19:59)
[2018-12-18] MEDS ORDERED: [UNRECOGNIZED DRUG - OTHER] PO PRN (19:59)
[2018-12-18] MEDS ORDERED: CALCIUM CARBONATE PO PRN (19:59)
--- NOTE | 2018-12-18 20:01 | HP ---
CHIEF COMPLAINT:right necrotic finger PCP: Boaz HISTORY OF PRESENT ILLNESS: Pacheco Rodriguez is a 58 yr old M, medical condition, ESRD (HD on , , ), DM, PUD, prior bleeding gastric ulcers found on EGD, mesenteric ischemia, CAD s/p CABG august 2017, stents, hx of multiple amputations of right hand fingers. presented to ED, with right 5th finger wound x 2 weeks. pt reports finger is black and bleeding. Dressing changed in ED and has kerlex around finger. pt denies chest pain, sob, cough, fever. ER course was notable for: (1)Necrotic right 5th finger (2)afebrile (3) Recent Travel: PAST MEDICAL HISTORY: ESRD (HD on , , Fri) IDDM PUD PAST SURGICAL HISTORY: CAD s/p CABG Multiple amputations of right hand Social History: Smoking:denies Alcohol:denies Drugs: denies Family History: Allergies No Known Drug Allergies Allergy (Verified 12/18/18 15:33) HOME MEDICATIONS: Home Medications Medication Instructions Recorded Albuterol 2.5/Ipratropium 0.5 1 amp NEB TID 04/27/18 [Duoneb -] Aspirin [Ecotrin] 81 mg PO DAILY 04/27/18 Esomeprazole Magnesium [Nexium 40 mg PO DAILY 04/27/18 24Hr] Folic Acid/Vit B Complex and C 0.8 mg PO DAILY 04/27/18 [Renal-Kelly Tablet] Loratadine [Claritin] 10 mg PO DAILY 04/27/18 Olopatadine HCl [Pataday] 1 drop OU DAILY 04/27/18 Omeprazole 40 mg PO DAILY 04/27/18 Sevelamer Carbonate [Renvela -] 1,600 mg PO TID 04/27/18 Acetaminophen [Tylenol .Regular 325 mg PO Q3H PRN tablet 05/04/18 Strength -] Atorvastatin Ca [Lipitor] 40 mg PO HS tablet 05/04/18 Insulin (Novolog 70/30) [Novolog 24 units SQ BIDAC units 05/04/18 Mix 70/30 Vial -] Midodrine HCl [Proamatine -] 10 mg PO ASDIR 08/07/18 Pantoprazole Sodium [Protonix] 40 mg PO DAILY #7 tablet. 08/07/18 Calcium Carbonate/Simethicone 1 each PO DAILY PRN 12/18/18 [Maalox Advanced Tab Chew] REVIEW OF SYSTEMS CONSTITUTIONAL: Absent: fever, chills, diaphoresis, generalized weakness, malaise, loss of appetite, weight change HEENT: Absent: rhinorrhea, nasal congestion, throat pain, throat swelling, difficulty swallowing, mouth swelling, ear pain, eye pain, visual changes CARDIOVASCULAR: Absent: chest pain, syncope, palpitations, irregular heart rate, lightheadedness , peripheral edema RESPIRATORY: Absent: cough, shortness of breath, dyspnea with exertion, orthopnea, wheezing, stridor, hemoptysis GASTROINTESTINAL: Absent: abdominal pain, abdominal distension, nausea, vomiting, diarrhea, constipation, melena, hematochezia GENITOURINARY: Absent: dysuria, frequency, urgency, hesitancy, hematuria, flank pain, genital pain MUSCULOSKELETAL: Absent: myalgia, arthralgia, joint swelling, back pain, neck pain SKIN: right 5th finger necrotic wound Absent: rash, itching, pallor HEMATOLOGIC/IMMUNOLOGIC: Absent: easy bleeding, easy bruising, lymphadenopathy, frequent infections ENDOCRINE: Absent: unexplained weight gain, unexplained weight loss, heat intolerance, cold intolerance NEUROLOGIC: Absent: headache, focal weakness or paresthesias, dizziness, unsteady gait, seizure, mental status changes, bladder or bowel incontinence PSYCHIATRIC: Absent: anxiety, depression, suicidal or homicidal ideation, hallucinations. PHYSICAL EXAMINATION Vital Signs - 24 hr 12/18/18 15:40 Temperature 97.8 F Pulse Rate 84 Respiratory 20 Rate Blood Pressure 134/58 L O2 Sat by Pulse 96 Oximetry (%) GENERAL: Awake, alert, and fully oriented, in no acute distress. HEAD: Normal with no signs of trauma. EYES: Pupils equal, round and reactive to light, extraocular movements intact, sclera anicteric, conjunctiva clear. No lid lag. EARS, NOSE, THROAT: Ears normal, nares patent, oropharynx clear without exudates. Moist mucous membranes. NECK: Normal range of motion, supple without lymphadenopathy, JVD, or masses. LUNGS: Breath sounds equal, clear to auscultation bilaterally. No wheezes, and no crackles. No accessory muscle use. HEART: Regular rate and rhythm, normal S1 and S2 without murmur, rub or gallop. ABDOMEN: Soft, nontender, not distended, normoactive bowel sounds, no guarding, no rebound, no masses. No hepatomegaly or splenomegaly. MUSCULOSKELETAL: Normal range of motion at all joints. No bony deformities or tenderness. No CVA tenderness. UPPER EXTREMITIES: 2+ pulses, warm, well-perfused. No cyanosis. No clubbing. No peripheral edema. LOWER EXTREMITIES: 2+ pulses, warm, well-perfused. No calf tenderness. No peripheral edema. NEUROLOGICAL: Cranial nerves II-XII intact. Normal speech. Normal gait. PSYCHIATRIC: Cooperative. Good eye contact. Appropriate mood and affect. SKIN: Warm, dry, normal turgor, right finger wrapped with kerlex. Laboratory Results - last 24 hr 12/18/18 12/18/18 12/18/18 16:55 16:55 16:55 WBC 8.2 RBC 3.62 L Hgb 10.8 L Hct 33.6 L MCV 92.8 MCH 29.8 MCHC 32.2 RDW 15.5 Plt Count 230 MPV 9.3 D Absolute Neuts (auto) 6.2 Neutrophils % 75.5 Lymphocytes % 13.5 Monocytes % 9.5 Eosinophils % 0.9 D Basophils % 0.6 Nucleated RBC % 0 ESR 108 H PT with INR INR Sodium Potassium Chloride Carbon Dioxide Anion Gap BUN Creatinine Est GFR (CKD-EPI)AfAm Est GFR (CKD-EPI)NonAf Random Glucose Calcium Total Bilirubin AST ALT Alkaline Phosphatase C-Reactive Protein 13.0 H Total Protein Albumin Blood Type Antibody Screen 12/18/18 12/18/18 12/18/18 16:55 16:55 16:55 WBC RBC Hgb Hct MCV MCH MCHC RDW Plt Count MPV Absolute Neuts (auto) Neutrophils % Lymphocytes % Monocytes % Eosinophils % Basophils % Nucleated RBC % ESR PT with INR 13.10 H INR 1.11 H Sodium 130 L Potassium 5.6 H Chloride 90 L Carbon Dioxide 25 Anion Gap 14 BUN 67.3 H Creatinine 8.4 H* Est GFR (CKD-EPI)AfAm 7.25 Est GFR (CKD-EPI)NonAf 6.26 Random Glucose 431 H* Calcium 8.8 Total Bilirubin 0.3 AST 16 ALT 25 Alkaline Phosphatase 164 H C-Reactive Protein Total Protein 7.8 Albumin 3.3 L Blood Type A POSITIVE Antibody Screen Negative ASSESSMENT/PLAN: Pacheco Rodriguez is a 58 yr old M, medical condition ESRD (HD on , , ), DM, PUD , prior bleeding gastric ulcers found on EGD, mesenteric ischemia, CAD s/p CABG august 2017, stents, hx of multiple amputations of fingers in right hand admitted for Admitting Diagnosis Right 5th necrotic finger Chronic Problems ESRD IDDM PUD CAD s/p CABG A/P: #Right 5th necrotic finger -Surgical Consult - Dr. Dianne jean in ED will see in AM -IV abt, vanc, zosyn- will cont - Blood cx in process -wound care -ID consult -xray of finger -No osteo noted on the hand x-ray -MRI ordered #ESRD -HD in AM -Renal Consult (Dr. Ratliff) -access R AV fistula -creat 8.4 ~baseline #IDDM -monitor FS -diabetic/renal diet -pt reports taking 30 units Novolog AM, PM, Lantus 30 units QHS #PUD -on PPI BID #CAD s/p CABG -asa on hold Full Code Dispo: requires inpatient treatment Visit type - Emergency Visit Emergency Visit: Yes ED Registration Date: 12/18/18 Care time: The patient presented to the Emergency Department on the above date and was hospitalized for further evaluation of their emergent condition. - New Patient This patient is new to me today: Yes Date on this admission: 12/18/18 - Critical Care Critical Care patient: No
[2018-12-18] MEDS ORDERED: SIMETHICONE 80 MG TAB.CHEW (FP) PO PRN (20:14)
[2018-12-18] MEDS ORDERED: CALCIUM CARBONATE 650 MG TABLET PO PRN (20:14)
[2018-12-18] MEDS ORDERED: SEVELAMER CARBONATE 800 MG TAB (FP) PO SCH (22:00)
[2018-12-18] MEDS ORDERED: ATORVASTATIN CA 40 MG TABLET (FP) PO SCH (22:00)
[2018-12-18] MEDS ORDERED: ALBUTEROL SO4 2.5/IPRATROPIUM 0.5 INH SOL 3 ML VIAL.NEB. NEB ONE (22:15)
[2018-12-18] MEDS ORDERED: ATORVASTATIN CA 40 MG TABLET (FP) ONE (22:15)
[2018-12-18] MEDS ORDERED: HEPARIN NA (PORCINE) 5,000 UNITS/ML 1ML VIAL ONE (22:15)
[2018-12-18] MEDS: ALBUTEROL SO4 2.5/IPRATROPIUM 0.5 INH SOL 3 ML VIAL.NEB. NEB SCH (22:30)
[2018-12-18] MEDS: HEPARIN NA (PORCINE) 5,000 UNITS/ML 1ML VIAL SQ SCH (22:31)
--- NOTE | 2018-12-19 00:13 | CONSULT ---
Consult Consult Specialty:: Hand and Microsurgery Reason for Consultation:: right index finger gangrene - History of Present Illness Chief Complaint: right hand finger infection History of Present Illness: 58 yo RHD male PMH ESRD (HD on , , ), DM, PUD, prior bleeding gastric ulcers found on EGD, mesenteric ischemia, CAD s/p CABG august 2017, stents, hx of multiple amputations of right hand fingers. presented to ED, with right 5th finger wound for 2 weeks. pt reports finger is black and bleeding. Dressing changed in ED and has kerlex around finger. pt denies chest pain, sob, cough, fever. we were called to assess and treat. 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 No: Aortic Stenosis Renal/: Yes: Renal Failure, Hemodialysis Musculoskeletal: Yes: Other (peripheral vascular disease) Endocrine: Yes: Diabetes Mellitus - Past Surgical History Past Surgical History: Yes: Amputation, AV Fistula/Graft, CABG - Alcohol/Substance Use Hx Alcohol Use: No History of Substance Use: reports: None - Smoking History Smoking history: Unknown if ever smoked Have you smoked in the past 12 months: No Aproximately how many cigarettes per day: 0 - Social History Usual Living Arrangement: With Spouse ADL: Independent History of Recent Travel: No Home Medications - Allergies Allergies/Adverse Reactions: Allergies Allergy/AdvReac Type Severity Reaction Status Date / Time No Known Drug Allergies Allergy Verified 12/18/18 15:33 - Home Medications Home Medications: Ambulatory Orders Albuterol 2.5/Ipratropium 0.5 [Duoneb -] 1 amp NEB TID 04/27/18 Aspirin [Ecotrin] 81 mg PO DAILY 04/27/18 Esomeprazole Magnesium [Nexium 24Hr] 40 mg PO DAILY 04/27/18 Folic Acid/Vit B Complex and C [Renal-Kelly Tablet] 0.8 mg PO DAILY 04/27/18 Loratadine [Claritin] 10 mg PO DAILY 04/27/18 Olopatadine HCl [Pataday] 1 drop OU DAILY 04/27/18 Omeprazole 40 mg PO DAILY 04/27/18 Sevelamer Carbonate [Renvela -] 1,600 mg PO TID 04/27/18 Acetaminophen [Tylenol .Regular Strength -] 325 mg PO Q3H PRN tablet 05/04/18 Atorvastatin Ca [Lipitor] 40 mg PO HS tablet 05/04/18 Insulin (Novolog 70/30) [Novolog Mix 70/30 Vial -] 24 units SQ BIDAC units 11/14 Midodrine HCl [Proamatine -] 10 mg PO ASDIR 08/07/18 Pantoprazole Sodium [Protonix] 40 mg PO DAILY #7 tablet. 08/07/18 Calcium Carbonate/Simethicone [Maalox Advanced Tab Chew] 1 each PO DAILY PRN Review of Systems - Review of Systems Constitutional: denies: Chills, Fever Eyes: reports: Blurred Vision. denies: Blind Spots, Double Vision HENT: denies: Difficult Swallowing, Throat Pain Neck: denies: Decreased ROM, Tenderness Cardiovascular: denies: Chest Pain, Palpitations Respiratory: denies: Cough, SOB Gastrointestinal: denies: Abdominal Pain, Constipation, Diarrhea Genitourinary: denies: Dysuria, Flank Pain Breasts: reports: No Symptoms Reported. denies: Pain Musculoskeletal: denies: Extremity Pain, Muscle Pain, Muscle Cramps Integumentary: denies: Bruising, Change in Color, Eczema, Pallor Neurological: denies: Confusion, Dizziness, Seizure, Syncope Endocrine: denies: Unexplained Weight Gain, Unexplained Weight Loss Hematology/Lymphatic: denies: Easily Bruised, Excessive Bleeding Psychiatric: denies: Anxiety, Depression Physical Exam Vital Signs: Vital Signs Temperature 97.8 F 12/18/18 15:40 Pulse Rate 84 12/18/18 15:40 Respiratory Rate 20 12/18/18 15:40 Blood Pressure 134/58 L 12/18/18 15:40 O2 Sat by Pulse Oximetry (%) 96 12/18/18 15:40 Constitutional: Yes: Well Nourished, No Distress, Calm Eyes: Yes: Conjunctiva Clear, EOM Intact HENT: Yes: Atraumatic, Normocephalic Neck: Yes: Supple, Trachea Midline Cardiovascular: Yes: Regular Rate and Rhythm, S1, S2 Respiratory: Yes: Regular, CTA Bilaterally Gastrointestinal: Yes: Normal Bowel Sounds, Soft, Abdomen, Obese. No: Tenderness ...Rectal Exam: Yes: Deferred Renal/: No: CVA Tenderness - Left, CVA Tenderness - Right Breast(s): No: Breast Implants, Nipple Inversion Musculoskeletal: No: Muscle Pain, Muscle Weakness Extremities: Yes: Amputation, Deformity, Other (Wet gangrene right ulnar digit/ small finger with exposed distal phalanx) Wound/Incision: Yes: Open to air, Draining (wet gangrene) Neurological: Yes: Alert, Oriented Psychiatric: Yes: Alert, Oriented Labs: CBC, BMP 12/18/18 16:55 12/18/18 16:55 Imaging - Results X-ray: Report Reviewed, Image Reviewed (exposed bone right ulnar digit) Problem List - Problems (1) Wet gangrene Assessment/Plan: 58yo male RHD with s/p multiple digital amputations for gangrene now with Right small finger/ ulanr digit wet gangrene NPO and IVF hydration IV antibiotics ID consult glycemeic control OR for revision amputation of right ulnar digit. Discussed with patient risks, benefits and alternatives of aforementioned procedure including but not limited to bleeding, infection, injury to adjacent structures, need for further procedures, ; alternatives include antibiotics , delayed or no surgery - risks of this include failure of nonoperative therapy , sepsis, recurrence, . Patient desires to proceed with operation - will take to OR for above. Informed consent signed for same. Thank you for the opportunity to participate in the care of this patient. 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
[2018-12-19] MEDS ORDERED: PIPERACILLIN/TAZOB 3.375 GM 3.375 GM in DEXTROSE 5%-WATER - 50 ML IVPB SCH (02:00)
[2018-12-19] MEDS ORDERED: ACETAMINOPHEN 325 MG TABLET (FP) PO ONE (05:51)
[2018-12-19] MEDS: INSULIN (NOVOLOG MIX 70/30) 100 UNITS/ML MDV SQ SCH ×2 (06:16→18:00)
[2018-12-19] MEDS: SEVELAMER CARBONATE 800 MG TAB (FP) PO SCH ×3 (08:12→18:44)
[2018-12-19 08:36] LABS: BASO % 0.3 % (0-2.0); EOS % 1.5 % (0-4.5); HEMATOCRIT 29.6 % (35.4-49); HEMOGLOBIN 9.9 GM/dL (11.7-16.9); LYMPH % 8.5 % (8-40); MCH 29.9 pg (25.7-33.7); MCHC 33.4 g/dl (32.0-35.9); MEAN CELL VOLUME 89.4 fl (80-96); MEAN PLT VOLUME 8.7 fl (7.5-11.1); MONO % 10.1 % (3.8-10.2); NEUT % 79.6 % (42.8-82.8); PLATELET COUNT 205 K/MM3 (134-434); RBC 3.31 M/mm3 (4.00-5.60); RDW 15.5 % (11.9-15.9); WHITE BLOOD COUNT 6.5 K/mm3 (4.0-10.0)
[2018-12-19 09:03] LABS: BILIRUBIN,TOTAL 0.5 mg/dL (0.2-1); BLOOD UREA NITROGEN 79.3 mg/dL (7-18); CALCIUM 8.8 mg/dL (8.5-10.1); POTASSIUM 5.6 mmol/L (3.5-5.1)
[2018-12-19 09:18] LABS: CREATININE 9.8 mg/dL (0.55-1.3)
[2018-12-19] MEDS: HEPARIN NA (PORCINE) 5,000 UNITS/ML 1ML VIAL SQ SCH (09:43)
[2018-12-19] MEDS ORDERED: SODIUM POLYSTYRENE SULFONATE 15 GM/60 ML BOTTLE PO ONE (09:52)
[2018-12-19] MEDS ORDERED: VITAMIN B COMP W-C 1 EA TABLET PO SCH (10:00)
[2018-12-19] MEDS ORDERED: PATIENT'S OWN MEDICATION (NON-FORMULARY) (Esomeprazole Magnesium [Nexium 24hr] 40 MG) PO SCH (10:00)
[2018-12-19] MEDS ORDERED: LORATADINE 10 MG TABLET PO SCH (10:00)
[2018-12-19] MEDS ORDERED: PATIENT'S OWN MEDICATION (NON-FORMULARY) (Omeprazole 40 MG) PO SCH (10:00)
[2018-12-19] MEDS ORDERED: PANTOPRAZOLE 40 MG TABLET (FP) PO SCH (10:00)
--- NOTE | 2018-12-19 11:31 | PN ---
Progress Note (short form) - Note Progress Note: Right finger pain and swelling Vital Signs - 24 hr 12/18/18 12/19/18 12/19/18 15:40 00:23 02:00 Temperature 97.8 F 98.5 F 97.9 F Pulse Rate 84 Pulse Rate [ 80 80 Right] Respiratory 20 18 18 Rate Blood Pressure 134/58 L Blood Pressure 137/77 127/70 [Left] O2 Sat by Pulse 96 95 96 Oximetry (%) 12/19/18 12/19/18 12/19/18 03:00 03:23 05:58 Temperature 97.8 F 97.2 F L Pulse Rate 92 H 88 Pulse Rate [ Right] Respiratory 18 18 Rate Blood Pressure 146/47 L 104/63 Blood Pressure [Left] O2 Sat by Pulse 100 Oximetry (%) Current Medications Generic Name Dose Route Start Last Admin Trade Name Freq PRN Reason Stop Dose Admin Albuterol/Ipratropium 1 amp 12/18/18 22:00 12/18/18 22:30 Duoneb - NEB Not Given TID [facility] Atorvastatin Calcium 40 mg 12/18/18 22:00 12/18/18 22:31 Lipitor - PO 40 mg HS [facility]IA Administration Calcium Carbonate 650 mg 12/18/18 20:14 Calcium Carbonate - PO DAILY PRN INDIGESTION Heparin Sodium (Porcine) 5,000 unit 12/18/18 22:00 12/19/18 09:43 Heparin - SQ 5,000 unit BID VALERIA Administration Piperacillin Sod/Tazobactam 50 mls @ 100 mls/hr 12/19/18 02:00 Sod 3.375 gm/ Dextrose IVPB Q8H-IV [facility] Protocol Insulin Aspart 24 units 12/19/18 07:00 12/19/18 06:16 Novolog Mix 70/30 Vial SQ 24 units BIDAC [facility]IA Administration Insulin Aspart 1 vial 12/19/18 11:00 Novolog Vial Sliding Scale - SQ ACHS [facility] Protocol Loratadine 10 mg 12/19/18 10:00 12/19/18 09:43 Claritin - PO 10 mg DAILY [facility]IA Administration Midodrine 10 mg 12/18/18 20:00 Proamatine - PO ASDIR [facility] Multivit/Ca Carb/B Cmplx/FA/Prenat 1 tablet 12/19/18 10:00 12/19/18 09:43 Nephro-Kelly - PO 1 tablet DAILY [facility]IA Administration Pantoprazole Sodium 40 mg 12/19/18 10:00 12/19/18 09:43 Protonix - PO 40 mg DAILY [facility] Administration Sevelamer Carbonate 1,600 mg 12/18/18 22:00 12/19/18 08:12 Renvela - PO 1,600 mg TIDCM [facility] Administration Simethicone 80 mg 12/18/18 20:14 Mylicon - PO DAILY PRN GAS Laboratory Results - last 24 hr 12/18/18 12/18/18 12/18/18 16:55 16:55 16:55 WBC 8.2 RBC 3.62 L Hgb 10.8 L Hct 33.6 L MCV 92.8 MCH 29.8 MCHC 32.2 RDW 15.5 Plt Count 230 MPV 9.3 D Absolute Neuts (auto) 6.2 Neutrophils % 75.5 Lymphocytes % 13.5 Monocytes % 9.5 Eosinophils % 0.9 D Basophils % 0.6 Nucleated RBC % 0 ESR 108 H PT with INR INR Sodium Potassium Chloride Carbon Dioxide Anion Gap BUN Creatinine Est GFR (CKD-EPI)AfAm Est GFR (CKD-EPI)NonAf POC Glucometer Random Glucose Calcium Magnesium Total Bilirubin AST ALT Alkaline Phosphatase C-Reactive Protein 13.0 H Total Protein Albumin Blood Type Antibody Screen 12/18/18 12/18/18 12/18/18 16:55 16:55 16:55 WBC RBC Hgb Hct MCV MCH MCHC RDW Plt Count MPV Absolute Neuts (auto) Neutrophils % Lymphocytes % Monocytes % Eosinophils % Basophils % Nucleated RBC % ESR PT with INR 13.10 H INR 1.11 H Sodium 130 L Potassium 5.6 H Chloride 90 L Carbon Dioxide 25 Anion Gap 14 BUN 67.3 H Creatinine 8.4 H* Est GFR (CKD-EPI)AfAm 7.25 Est GFR (CKD-EPI)NonAf 6.26 POC Glucometer Random Glucose 431 H* Calcium 8.8 Magnesium Total Bilirubin 0.3 AST 16 ALT 25 Alkaline Phosphatase 164 H C-Reactive Protein Total Protein 7.8 Albumin 3.3 L Blood Type A POSITIVE Antibody Screen Negative 12/19/18 12/19/18 12/19/18 05:32 07:35 07:35 WBC 6.5 RBC 3.31 L Hgb 9.9 L Hct 29.6 L MCV 89.4 MCH 29.9 MCHC 33.4 RDW 15.5 Plt Count 205 MPV 8.7 Absolute Neuts (auto) 5.2 Neutrophils % 79.6 Lymphocytes % 8.5 D Monocytes % 10.1 Eosinophils % 1.5 Basophils % 0.3 Nucleated RBC % 0 ESR PT with INR INR Sodium 129 L Potassium 5.6 H Chloride 91 L Carbon Dioxide 23 Anion Gap 15 BUN 79.3 H Creatinine 9.8 H* Est GFR (CKD-EPI)AfAm 6.02 Est GFR (CKD-EPI)NonAf 5.19 POC Glucometer 312 Random Glucose 302 H* Calcium 8.8 Magnesium 3.0 H Total Bilirubin 0.5 AST 9 L ALT 22 Alkaline Phosphatase 145 H C-Reactive Protein Total Protein 7.0 Albumin 3.0 L Blood Type Antibody Screen 12/19/18 11:09 WBC RBC Hgb Hct MCV MCH MCHC RDW Plt Count MPV Absolute Neuts (auto) Neutrophils % Lymphocytes % Monocytes % Eosinophils % Basophils % Nucleated RBC % ESR PT with INR INR Sodium Potassium Chloride Carbon Dioxide Anion Gap BUN Creatinine Est GFR (CKD-EPI)AfAm Est GFR (CKD-EPI)NonAf POC Glucometer 236 Random Glucose Calcium Magnesium Total Bilirubin AST ALT Alkaline Phosphatase C-Reactive Protein Total Protein Albumin Blood Type Antibody Screen S1 S2 RRR Lungs clear Abd- soft, obese No edema Rt 5 th finger -- edema+, erythema+, tender+ A/P ESRD on HD necrotic finger\ PAD -- will be going for surgery today -- Surgical eval noted -- needs dialysis-- received kayexalate -- will need dialysis prior to surgery-- informed Dr chappell -- iv antibiotics Problem List - Problems (1) Cellulitis of finger Code(s): L03.019 - CELLULITIS OF UNSPECIFIED FINGER Qualifiers: Laterality: right Qualified Code(s): L03.011 - Cellulitis of right finger (2) ESRD (end stage renal disease) Code(s): N18.6 - END STAGE RENAL DISEASE (3) Wet gangrene Code(s): I96 - GANGRENE, NOT ELSEWHERE CLASSIFIED (4) Anemia Code(s): D64.9 - ANEMIA, UNSPECIFIED Qualifiers: Anemia type: unspecified type Qualified Code(s): D64.9 - Anemia, unspecified (5) ESRD (end stage renal disease) on dialysis Code(s): N18.6 - END STAGE RENAL DISEASE; Z99.2 - DEPENDENCE ON RENAL DIALYSIS
--- NOTE | 2018-12-19 12:51 | EKG ---
Test Reason : Blood Pressure : / mmHG Vent. Rate : 083 BPM Atrial Rate : 083 BPM P-R Int : 166 ms QRS Dur : 106 ms QT Int : 372 ms P-R-T Axes : 014 -35 103 degrees QTc Int : 437 ms NORMAL SINUS RHYTHM LEFT AXIS DEVIATION INCOMPLETE RIGHT BUNDLE BRANCH BLOCK T WAVE ABNORMALITY, CONSIDER LATERAL ISCHEMIA ABNORMAL ECG WHEN COMPARED WITH ECG OF 07-AUG-2018 11:59, NO SIGNIFICANT CHANGE WAS FOUND Confirmed by REGI OZUNA MD ([id number]) on 12/19/2018 12:51:01 PM Referred By: Confirmed By:REGI OZUNA MD
[2018-12-19] MEDS: ALBUTEROL SO4 2.5/IPRATROPIUM 0.5 INH SOL 3 ML VIAL.NEB. NEB SCH ×2 (13:25→22:03)
[2018-12-19] MEDS ORDERED: EPOETIN ALFA 2,000 UNIT/1 ML VIAL IVPUSH ONE (15:00)
--- NOTE | 2018-12-19 15:18 | CON.ID ---
Consult - History of Present Illness History of Present Illness: 58 y.o. male with uncontrolled DM, ESRD on HD, PVD, CAD s/p CABG, PUD, GIB, mesenteric ischemia, s/p Rt 3rd/Lt 5th partial digit resection presents with c/ o Rt 5th digit wound that developed 2 wks ago and started developing darkening and malodorous drainage one week ago. He states he went to his PMD 3 days ago and was prescribed Augmentin. Presented to the ER for Rt 5th digit pain and erythema extending from the area. He has been afebrile, without chills, no leukocytosis but glucose >300-400. He has no other specific complaints. 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 No: Aortic Stenosis Renal/: Yes: Renal Failure, Hemodialysis Musculoskeletal: Yes: Other (peripheral vascular disease) Endocrine: Yes: Diabetes Mellitus - Past Surgical History Past Surgical History: Yes: Amputation, AV Fistula/Graft, CABG - Alcohol/Substance Use Hx Alcohol Use: No History of Substance Use: reports: None - Smoking History Smoking history: Unknown if ever smoked Have you smoked in the past 12 months: No Aproximately how many cigarettes per day: 0 - Social History Usual Living Arrangement: With Spouse ADL: Independent History of Recent Travel: No Home Medications - Allergies Allergies/Adverse Reactions: Allergies Allergy/AdvReac Type Severity Reaction Status Date / Time No Known Drug Allergies Allergy Verified 12/18/18 15:33 - Home Medications Home Medications: Ambulatory Orders Albuterol 2.5/Ipratropium 0.5 [Duoneb -] 1 amp NEB TID 04/27/18 Aspirin [Ecotrin] 81 mg PO DAILY 04/27/18 Esomeprazole Magnesium [Nexium 24Hr] 40 mg PO DAILY 04/27/18 Folic Acid/Vit B Complex and C [Renal-Kelly Tablet] 0.8 mg PO DAILY 04/27/18 Loratadine [Claritin] 10 mg PO DAILY 04/27/18 Olopatadine HCl [Pataday] 1 drop OU DAILY 04/27/18 Omeprazole 40 mg PO DAILY 04/27/18 Sevelamer Carbonate [Renvela -] 1,600 mg PO TID 04/27/18 Acetaminophen [Tylenol .Regular Strength -] 325 mg PO Q3H PRN tablet 05/04/18 Atorvastatin Ca [Lipitor] 40 mg PO HS tablet 05/04/18 Insulin (Novolog 70/30) [Novolog Mix 70/30 Vial -] 24 units SQ BIDAC units 11/14 Midodrine HCl [Proamatine -] 10 mg PO ASDIR 08/07/18 Pantoprazole Sodium [Protonix] 40 mg PO DAILY #7 tablet.dr 08/07/18 Calcium Carbonate/Simethicone [Maalox Advanced Tab Chew] 1 each PO DAILY PRN Review of Systems - Review of Systems Constitutional: reports: No Symptoms Eyes: reports: No Symptoms HENT: reports: No Symptoms Neck: reports: No Symptoms Cardiovascular: reports: No Symptoms Respiratory: reports: No Symptoms Gastrointestinal: reports: No Symptoms Genitourinary: reports: No Symptoms Musculoskeletal: reports: No Symptoms Integumentary: reports: Erythema, Wound Neurological: reports: No Symptoms Hematology/Lymphatic: reports: No Symptoms Physical Exam Vital Signs: Vital Signs Temperature 98.5 F 12/19/18 13:35 Pulse Rate 80 12/19/18 15:10 Respiratory Rate 18 12/19/18 15:10 Blood Pressure 96/49 L 12/19/18 15:10 O2 Sat by Pulse Oximetry (%) 96 12/19/18 09:00 Constitutional: Yes: No Distress, Calm Eyes: Yes: Conjunctiva Clear HENT: Yes: Atraumatic Neck: Yes: Supple Cardiovascular: Yes: Regular Rate and Rhythm Respiratory: Yes: CTA Bilaterally Gastrointestinal: Yes: Normal Bowel Sounds, Soft, Abdomen, Obese Musculoskeletal: Yes: WNL Extremities: Yes: Amputation (Rt 3rd digit, Lt 5th digit partial amp sites healed), Other Wound/Incision: Yes: Other (Rt 5th digit gangrenous with purulent drainage, erythema/edema extending up) Neurological: Yes: Alert, Oriented Labs: CBC, BMP 12/19/18 07:35 12/19/18 07:35 Laboratory Tests 12/18/18 12/18/18 12/18/18 16:55 16:55 16:55 WBC 8.2 RBC 3.62 L Hgb 10.8 L Hct 33.6 L MCV 92.8 MCH 29.8 MCHC 32.2 RDW 15.5 Plt Count 230 MPV 9.3 D Absolute Neuts (auto) 6.2 Neutrophils % 75.5 Lymphocytes % 13.5 Monocytes % 9.5 Eosinophils % 0.9 D Basophils % 0.6 Nucleated RBC % 0 ESR 108 H PT with INR INR Sodium Potassium Chloride Carbon Dioxide Anion Gap BUN Creatinine Est GFR (CKD-EPI)AfAm Est GFR (CKD-EPI)NonAf POC Glucometer Random Glucose Calcium Magnesium Total Bilirubin AST ALT Alkaline Phosphatase C-Reactive Protein 13.0 H Total Protein Albumin Blood Type Antibody Screen 12/18/18 12/18/18 12/18/18 16:55 16:55 16:55 WBC RBC Hgb Hct MCV MCH MCHC RDW Plt Count MPV Absolute Neuts (auto) Neutrophils % Lymphocytes % Monocytes % Eosinophils % Basophils % Nucleated RBC % ESR PT with INR 13.10 H INR 1.11 H Sodium 130 L Potassium 5.6 H Chloride 90 L Carbon Dioxide 25 Anion Gap 14 BUN 67.3 H Creatinine 8.4 H* Est GFR (CKD-EPI)AfAm 7.25 Est GFR (CKD-EPI)NonAf 6.26 POC Glucometer Random Glucose 431 H* Calcium 8.8 Magnesium Total Bilirubin 0.3 AST 16 ALT 25 Alkaline Phosphatase 164 H C-Reactive Protein Total Protein 7.8 Albumin 3.3 L Blood Type A POSITIVE Antibody Screen Negative 12/19/18 12/19/18 12/19/18 05:32 07:35 07:35 WBC 6.5 RBC 3.31 L Hgb 9.9 L Hct 29.6 L MCV 89.4 MCH 29.9 MCHC 33.4 RDW 15.5 Plt Count 205 MPV 8.7 Absolute Neuts (auto) 5.2 Neutrophils % 79.6 Lymphocytes % 8.5 D Monocytes % 10.1 Eosinophils % 1.5 Basophils % 0.3 Nucleated RBC % 0 ESR PT with INR INR Sodium 129 L Potassium 5.6 H Chloride 91 L Carbon Dioxide 23 Anion Gap 15 BUN 79.3 H Creatinine 9.8 H* Est GFR (CKD-EPI)AfAm 6.02 Est GFR (CKD-EPI)NonAf 5.19 POC Glucometer 312 Random Glucose 302 H* Calcium 8.8 Magnesium 3.0 H Total Bilirubin 0.5 AST 9 L ALT 22 Alkaline Phosphatase 145 H C-Reactive Protein Total Protein 7.0 Albumin 3.0 L Blood Type Antibody Screen 12/19/18 11:09 WBC RBC Hgb Hct MCV MCH MCHC RDW Plt Count MPV Absolute Neuts (auto) Neutrophils % Lymphocytes % Monocytes % Eosinophils % Basophils % Nucleated RBC % ESR PT with INR INR Sodium Potassium Chloride Carbon Dioxide Anion Gap BUN Creatinine Est GFR (CKD-EPI)AfAm Est GFR (CKD-EPI)NonAf POC Glucometer 236 Random Glucose Calcium Magnesium Total Bilirubin AST ALT Alkaline Phosphatase C-Reactive Protein Total Protein Albumin Blood Type Antibody Screen Imaging - Results X-ray: Pending Problem List - Problems (1) Cellulitis of finger Code(s): L03.019 - CELLULITIS OF UNSPECIFIED FINGER Qualifiers: Laterality: right Qualified Code(s): L03.011 - Cellulitis of right finger (2) ESRD (end stage renal disease) Code(s): N18.6 - END STAGE RENAL DISEASE (3) Wet gangrene Code(s): I96 - GANGRENE, NOT ELSEWHERE CLASSIFIED (4) Anemia Code(s): D64.9 - ANEMIA, UNSPECIFIED Qualifiers: Anemia type: unspecified type Qualified Code(s): D64.9 - Anemia, unspecified (5) GERD (gastroesophageal reflux disease) Code(s): K21.9 - GASTRO-ESOPHAGEAL REFLUX DISEASE WITHOUT ESOPHAGITIS Qualifiers: Esophagitis presence: esophagitis presence not specified Qualified Code(s) : K21.9 - Gastro-esophageal reflux disease without esophagitis (6) HTN (hypertension) Code(s): I10 - ESSENTIAL (PRIMARY) HYPERTENSION Qualifiers: Hypertension type: essential hypertension Qualified Code(s): I10 - Essential (primary) hypertension (7) Peptic ulcer disease Code(s): K27.9 - PEPTIC ULC, SITE UNSP, UNSP AC OR CHR, W/O HEMOR OR PERF (8) S/P CABG (coronary artery bypass graft) Code(s): Z95.1 - PRESENCE OF AORTOCORONARY BYPASS GRAFT (9) Upper GI bleed Code(s): K92.2 - GASTROINTESTINAL HEMORRHAGE, UNSPECIFIED Assessment/Plan Rt 5th digit gangrene r/o OM Rt hand cellulitis Uncontrolled DM ESRD on HD CAD s/p CABG PUD s/p Rt 3rd digit/partial Lt 5th digit amputations -- Zosyn/Clindamycin , Vancomycin post HD -- suggest MRI of hand -- f/u Xrays -- Surgery following -- f/u blood cultures -- send wound cultures -- monitor vitals, continue wound care
[2018-12-19] MEDS ORDERED: CLINDAMYCIN 600MG PREMIX IVPB 600 MG/50 ML BAG IVPB SCH (15:30)
[2018-12-19] MEDS ORDERED: VANCOMYCIN 1 GRAM (PRE-DOCKED) 1,000 MG/250 ML BAG IVPB ONE ×2 (15:30→17:12)
[2018-12-19] MEDS: INSULIN SLIDING SCALE (NOVOLOG) 1 VIAL SQ SCH ×2 (18:17→18:30)
[2018-12-19] MEDS: MIDODRINE HCL 5 MG TABLET PO SCH ×3 (18:19→18:45)
[2018-12-19] MEDS ORDERED: PT OWN MED DRAWER 7, Y5N ONE (18:24)
[2018-12-19] MEDS ORDERED: INSULIN (NOVOLOG) ASPART 100 UNITS/ML 10ML VIAL ONE (21:09)
[2018-12-19] MEDS ORDERED: ONDANSETRON 4 MG/2 ML VIAL IVPUSH PRN (22:04)
[2018-12-19] MEDS ORDERED: fentaNYL CITRATE 250 MCG/5 ML VIAL ONE (22:12)
[2018-12-19] MEDS ORDERED: PROPOFOL 20 ML ONE ×3 (22:13)
[2018-12-19] MEDS ORDERED: ETOMIDATE 20 MG/10 ML AMPUL IVPUSH ONE (22:13)
[2018-12-19] MEDS ORDERED: SODIUM CHLORIDE 1,000 ML IV SCH (22:15)
[2018-12-19] MEDS ORDERED: SUCCINYLCHOLINE CHLORIDE 200 MG/10 ML SYRINGE ONE (22:17)
[2018-12-19] MEDS ORDERED: LIDOCAINE HCL/PF 2% SDV 5ML VIAL ONE (22:33)
[2018-12-19] MEDS ORDERED: BUPIVACAINE HCL/PF 0.5% (5MG/ML) 10 ML VIAL ONE (22:46)
[2018-12-19] MEDS ORDERED: EPHEDRINE SULFATE/0.9% NACL/PF 50 MG/10 ML SYRINGE NR ONE ×2 (22:47→22:49)
[2018-12-19] MEDS ORDERED: ESMOLOL HCL ONE (23:09)
--- NOTE | 2018-12-19 23:21 | OP ---
Operative Note - Note: Operative Date: 12/19/18 Pre-Operative Diagnosis: wet gangrene of right ulnar digit/ small finger Operation: revision amputation of right ulnar digit/ small finger Findings: purulent wet gangrene of right ulnar digit, [place] 7 minutes Post-Operative Diagnosis: Same as Pre-op Surgeon: Erik Dean Anesthesiologist/DIE MAINTENANCE: Nena Tapia Anesthesia: General Specimens Removed: right ulnar digit/ small finger + wound culture Estimated Blood Loss (mls): 1 Fluid Volume Replaced (mls): 1,500 Operative Report Dictated: Yes
[2018-12-20] MEDS ORDERED: SIMETHICONE 80 MG TAB.CHEW (FP) PO PRN ×2 (00:19→07:30)
[2018-12-20] MEDS ORDERED: CALCIUM CARBONATE 650 MG TABLET PO PRN ×2 (00:19→07:30)
--- NOTE | 2018-12-20 00:39 | HOSP ---
Subjective - Review of Symptoms Events since last encounter: Hospitalist Encounter Notified by RN to call PACU regarding the patient. Spoke with the Anesthesiologist who informed me that the patient became unstable approx 5 mins- Hypotensive and Tachycardic Patient was initially on [address] [place] Will need to be transferred to Telemetry for further monitoring RN, Nursing Supervision informed VS reported P 802, BP 120/56 not currently on pressors Plan: Cardiac Monitoring CBC, CMP, Mg ordered for this morning- secondary to Hyponatremia 129 on 12/19 Continue with current regimen Assessment: This is a 58 y/o man PMH ESRD (,, ), CAD s/p CABG, DM. s/p revision amputation of right ulnar digit/ small finger POD #0 secondary to wet gangrene Physical Examination Vital Signs: Vital Signs Temperature 97.8 F 12/19/18 18:30 Pulse Rate 78 12/19/18 18:30 Respiratory Rate 18 12/19/18 18:30 Blood Pressure 109/57 L 12/19/18 18:30 O2 Sat by Pulse Oximetry (%) 96 12/19/18 09:00 Labs: CBC, BMP 12/19/18 07:35 12/19/18 07:35
[2018-12-20] MEDS ORDERED: CLINDAMYCIN PHOSPHATE 600 MG/4 ML VIAL ONE (01:20)
[2018-12-20] MEDS ORDERED: CLINDAMYCIN 600MG PREMIX IVPB 600 MG/50 ML BAG IVPB SCH (02:00)
[2018-12-20] MEDS ORDERED: INSULIN SLIDING SCALE (NOVOLOG) 1 VIAL SQ SCH (07:00)
[2018-12-20] MEDS ORDERED: INSULIN (NOVOLOG MIX 70/30) 100 UNITS/ML MDV SQ SCH (07:00)
[2018-12-20] MEDS ORDERED: SEVELAMER CARBONATE 800 MG TAB (FP) PO SCH (08:00)
[2018-12-20] MEDS ORDERED: ALBUTEROL SO4 2.5/IPRATROPIUM 0.5 INH SOL 3 ML VIAL.NEB. NEB SCH (08:00)
[2018-12-20] MEDS ORDERED: morphine SULFATE 4 MG/ML VIAL IVPUSH PRN (08:23)
[2018-12-20] MEDS ORDERED: ACETAMINOPHEN 325 MG TABLET (FP) PO PRN (08:23)
--- NOTE | 2018-12-20 08:23 | PN ---
Progress Note, Physician Chief Complaint: right hand digit infection History of Present Illness: 58 yo RHD male PMH ESRD (HD on , , ), DM, PUD, prior bleeding gastric ulcers found on EGD, mesenteric ischemia, CAD s/p CABG august 2017, stents, hx of multiple amputations of right hand fingers. He has been admitted for observation in telemetry after a transient hemodynamic instability in the perioperative period. - Current Medication List Current Medications: Active Medications Albuterol/Ipratropium (Duoneb -) 1 amp NEB RTID [facility] Atorvastatin Calcium (Lipitor -) 40 mg PO HS [facility] Calcium Carbonate (Calcium Carbonate -) 650 mg PO DAILY PRN PRN Reason: INDIGESTION Heparin Sodium (Porcine) (Heparin -) 5,000 unit SQ BID [facility]ER[facility] Clindamycin Phosphate (Cleocin 600 Mg Premix Ivpb -) 600 mg in 50 mls @ 100 mls /hr IVPB Q8H-IV [facility]; Protocol Insulin Aspart (Novolog Mix 70/30 Vial) 24 units SQ BIDAC [facility] Insulin Aspart (Novolog Vial Sliding Scale -) 1 vial SQ ACHS [facility]; Protocol Loratadine (Claritin -) 10 mg PO DAILY [facility] Midodrine (Proamatine -) 5 mg PO TID-MID [facility] Multivit/Ca Carb/B Cmplx/FA/Prenat (Nephro-Kelly -) 1 tablet PO DAILY [facility] Pantoprazole Sodium (Protonix -) 40 mg PO DAILY [facility] Sevelamer Carbonate (Renvela -) 1,600 mg PO TIDCM [facility]ER[facility] Simethicone (Mylicon -) 80 mg PO DAILY PRN PRN Reason: GAS - Objective Vital Signs: Vital Signs Temperature 98.4 F 12/20/18 05:21 Pulse Rate 86 12/20/18 05:21 Respiratory Rate 15 12/20/18 05:21 Blood Pressure 120/63 12/20/18 05:21 O2 Sat by Pulse Oximetry (%) 100 12/20/18 03:37 Vital Signs Period Temp Pulse Resp BP Sys/Harris Pulse Ox Last 24 Hr 97.8 F-99.3 F 76-133 15-20 90-145/42-79 96-100 Intake & Output 12/19/18 12/20/18 12/20/18 23:59 07:59 15:59 Intake Total 1500 Balance 1500 Weight 209 lb 7.026 oz Intake: IV 1500 Oral 0 Other: Voiding Method Urinal Urinal # Unmeasured Voids Void 1 0 Bowel Movement Yes # Bowel Movements 1 Weight Measurement Method Built in Bedscale Constitutional: Yes: Well Nourished, No Distress, Calm, Obese Eyes: Yes: Conjunctiva Clear, EOM Intact HENT: Yes: Atraumatic, Normocephalic Neck: Yes: Supple, Trachea Midline Cardiovascular: Yes: Regular Rate and Rhythm, S1, S2 Respiratory: Yes: Regular, CTA Bilaterally Gastrointestinal: Yes: Normal Bowel Sounds, Soft, Abdomen, Obese. No: Tenderness ...Rectal Exam: Yes: Deferred Genitourinary: No: CVA Tenderness - Left, CVA Tenderness - Right Breast(s): No: Dimpling, Nipple Inversion, Skin Changes Musculoskeletal: No: Muscle Pain, Muscle Weakness Extremities: No: Cool, Cyanosis Edema: Yes Edema: RUE: 1+ Peripheral Pulses WNL: Yes Peripheral Pulses: Left Radial: 2+, Right Radial: 2+, Left Doralis Pedis: 2+, Right Dorsalis Pedis: 2+, Left Femoral: 2+, Right Femoral: 2+ Integumentary: No: Erythema, Incision, Jaundice Wound/Incision: Yes: Clean/Dry, Well Approximated, Dressing Dry and Intact Neurological: Yes: Alert, Oriented Psychiatric: Yes: Alert, Oriented Labs: CBC, BMP 12/19/18 07:35 12/19/18 07:35 INR, PTT INR 1.11 (0.83-1.09) H 12/18/18 16:55 Microbiology 12/18/18 16:55 Blood - Peripheral Venous Blood Culture - Preliminary NO GROWTH OBTAINED AFTER 24 HOURS, INCUBATION TO CONTINUE FOR 4 DAYS. 12/18/18 16:55 Blood - Peripheral Venous Blood Culture - Preliminary NO GROWTH OBTAINED AFTER 24 HOURS, INCUBATION TO CONTINUE FOR 4 DAYS. Problem List - Problems (1) Wet gangrene Assessment/Plan: 58yo male RHD with s/p multiple digital amputations for gangrene now with Right small finger/ ulanr digit wet gangrene POD#1 s/p Revision amputation or right ulnar digit wet gangrene/small finger. Patient reports pain at the site. Medical management IV antibiotics f/u cultures glycemeic control adequate analgesia elevation of right arm above heart Keep dressing clean and dry until followup Discharge at the discretion of the primary team I will be away on 12/22 & 12/23 I am available by phone for questions Code(s): I96 - GANGRENE, NOT ELSEWHERE CLASSIFIED (2) ESRD (end stage renal disease) Code(s): N18.6 - END STAGE RENAL DISEASE (3) Diabetes Code(s): E11.9 - TYPE 2 DIABETES MELLITUS WITHOUT COMPLICATIONS Qualifiers: Diabetes mellitus type: type 2 Diabetes mellitus mcc insulin use: with mcc use Diabetes mellitus complication status: with other specified complication Qualified Code(s): E11.69 - Type 2 diabetes mellitus with other specified complication; 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
[2018-12-20] MEDS: SEVELAMER CARBONATE 800 MG TAB (FP) PO SCH ×3 (09:58→17:15)
[2018-12-20] MEDS: LORATADINE 10 MG TABLET PO SCH (09:58)
[2018-12-20] MEDS: VITAMIN B COMP W-C 1 EA TABLET PO SCH (09:58)
[2018-12-20] MEDS: MIDODRINE HCL 5 MG TABLET PO SCH ×3 (09:58→17:15)
[2018-12-20] MEDS: PANTOPRAZOLE 40 MG TABLET (FP) PO SCH (09:58)
[2018-12-20] MEDS: CLINDAMYCIN 600MG PREMIX IVPB 600 MG/50 ML BAG IVPB SCH ×2 (09:59→17:15)
[2018-12-20] MEDS: HEPARIN NA (PORCINE) 5,000 UNITS/ML 1ML VIAL SQ SCH ×2 (09:59→21:20)
[2018-12-20] MEDS ORDERED: VITAMIN B COMP W-C 1 EA TABLET PO SCH (10:00)
[2018-12-20] MEDS ORDERED: MIDODRINE HCL 5 MG TABLET PO SCH (10:00)
[2018-12-20] MEDS ORDERED: PANTOPRAZOLE 40 MG TABLET (FP) PO SCH (10:00)
[2018-12-20] MEDS ORDERED: HEPARIN NA (PORCINE) 5,000 UNITS/ML 1ML VIAL SQ SCH (10:00)
[2018-12-20] MEDS ORDERED: LORATADINE 10 MG TABLET PO SCH (10:00)
[2018-12-20] MEDS ORDERED: oxyCODONE HCL 5 MG TABLET PO PRN (10:01)
--- NOTE | 2018-12-20 10:01 | PN ---
Progress Note (short form) - Note Progress Note: pt in tele ICU -- he was hypotensive after surgery in PACU he c/o pain in finger Vital Signs - 24 hr 12/19/18 12/19/18 12/19/18 20:30 23:18 23:35 Temperature 98.1 F 99.2 F Pulse Rate 76 132 H 133 H Respiratory 17 18 18 Rate Blood Pressure 111/52 L 131/72 145/79 O2 Sat by Pulse 100 96 Oximetry (%) 12/19/18 12/20/18 12/20/18 23:50 00:05 00:20 Temperature Pulse Rate 130 H 88 81 Respiratory 18 18 18 Rate Blood Pressure 123/71 115/56 L 115/53 L O2 Sat by Pulse 99 96 100 Oximetry (%) 12/20/18 12/20/18 12/20/18 00:35 00:50 01:05 Temperature Pulse Rate 91 H 92 H 93 H Respiratory 18 18 18 Rate Blood Pressure 124/61 114/70 129/58 L O2 Sat by Pulse 100 100 100 Oximetry (%) 12/20/18 12/20/18 12/20/18 01:20 01:35 01:50 Temperature Pulse Rate 90 89 87 Respiratory 18 18 18 Rate Blood Pressure 123/51 L 121/56 L 126/55 L O2 Sat by Pulse 100 100 100 Oximetry (%) 12/20/18 12/20/18 12/20/18 02:05 03:37 04:00 Temperature 99.3 F Pulse Rate 89 Respiratory 18 18 20 Rate Blood Pressure 122/53 L 112/54 L O2 Sat by Pulse 100 100 Oximetry (%) Current Medications Generic Name Dose Route Start Last Admin Trade Name Freq PRN Reason Stop Dose Admin Acetaminophen 650 mg 12/20/18 08:23 Tylenol - PO Q6H PRN PAIN LEVEL 1-5 Albuterol/Ipratropium 1 amp 12/20/18 14:00 12/20/18 14:25 Duoneb - NEB 1 amp RTID [facility]IA Administration Atorvastatin Calcium 40 mg 12/20/18 22:00 Lipitor - PO HS [facility] Calcium Carbonate 650 mg 12/20/18 07:30 Calcium Carbonate - PO DAILY PRN INDIGESTION Heparin Sodium (Porcine) 5,000 unit 12/20/18 10:00 12/20/18 09:59 Heparin - SQ 5,000 unit BID [facility] Administration Clindamycin Phosphate 600 mg in 50 mls @ 100 mls/hr 12/20/18 10:00 12/20/18 17:15 Cleocin 600 Mg Premix Ivpb - IVPB 100 mls/hr Q8H-IV [facility] Administration Protocol Ibuprofen 600 mg 12/20/18 08:23 Motrin - PO Q6H PRN PAIN LEVEL 1-5 Insulin Aspart 24 units 12/20/18 16:30 12/20/18 17:15 Novolog Mix 70/30 Vial SQ 24 units BIDAC [facility] Administration Insulin Aspart 1 vial 12/20/18 11:00 12/20/18 17:22 Novolog Vial Sliding Scale - SQ 8 units ACHS [facility] Administration Protocol Loratadine 10 mg 12/20/18 10:00 12/20/18 09:58 Claritin - PO 10 mg DAILY [facility] Administration Midodrine 5 mg 12/20/18 10:00 12/20/18 17:15 Proamatine - PO 5 mg TID-MID [facility] Administration Morphine Sulfate 4 mg 12/20/18 08:23 Morphine Sulfate IVPUSH Q4H PRN PAIN LEVEL 7 - 10 Multivit/Ca Carb/B Cmplx/FA/Prenat 1 tablet 12/20/18 10:00 12/20/18 09:58 Nephro-Kelly - PO 1 tablet DAILY [facility] Administration Oxycodone HCl 5 mg 12/20/18 10:04 12/20/18 10:15 Roxicodone - PO 5 mg Q4H PRN Administration PAIN LEVEL 6-10 Pantoprazole Sodium 40 mg 12/20/18 10:00 12/20/18 09:58 Protonix - PO 40 mg DAILY [facility] Administration Sevelamer Carbonate 1,600 mg 12/20/18 08:00 12/20/18 17:15 Renvela - PO 1,600 mg TIDCM [facility]IA Administration Simethicone 80 mg 12/20/18 07:30 Mylicon - PO DAILY PRN GAS Laboratory Results - last 24 hr 12/19/18 12/19/18 12/20/18 13:40 22:04 05:53 WBC RBC Hgb Hct MCV MCH MCHC RDW Plt Count MPV Absolute Neuts (auto) Neutrophils % Lymphocytes % Monocytes % Eosinophils % Basophils % Nucleated RBC % Sodium Potassium Chloride Carbon Dioxide Anion Gap BUN Creatinine Est GFR (CKD-EPI)AfAm Est GFR (CKD-EPI)NonAf POC Glucometer 246 302 Random Glucose Calcium Magnesium Total Bilirubin AST ALT Alkaline Phosphatase Total Protein Albumin Hep C Ab Diagnostic Cancelled Hepatitis C RNA Cancelled HCV RNA PCR log coper hand/ml Cancelled HCV RNA (PCR) IUs/ml Cancelled HCV RNA PCR w/Genot Rflx Cancelled Liver Fibrosis Interp Cancelled 12/20/18 12/20/18 12/20/18 09:32 09:32 11:52 WBC 7.3 RBC 2.91 L Hgb 8.7 L Hct 26.7 L MCV 91.6 MCH 29.9 MCHC 32.7 RDW 16.0 H Plt Count 202 MPV 9.0 Absolute Neuts (auto) 4.9 Neutrophils % 67.8 Lymphocytes % 17.4 D Monocytes % 12.7 H Eosinophils % 1.5 Basophils % 0.6 Nucleated RBC % 0 Sodium 137 Potassium 4.4 Chloride 99 Carbon Dioxide 27 Anion Gap 11 BUN 43.8 H Creatinine 6.6 H Est GFR (CKD-EPI)AfAm 9.71 Est GFR (CKD-EPI)NonAf 8.38 POC Glucometer 266 Random Glucose 278 H Calcium 8.1 L Magnesium 2.4 Total Bilirubin 0.4 AST 40 H ALT 37 Alkaline Phosphatase 159 H Total Protein 6.9 Albumin 2.9 L Hep C Ab Diagnostic Hepatitis C RNA HCV RNA PCR log coper hand/ml HCV RNA (PCR) IUs/ml HCV RNA PCR w/Genot Rflx Liver Fibrosis Interp 12/20/18 16:57 WBC RBC Hgb Hct MCV MCH MCHC RDW Plt Count MPV Absolute Neuts (auto) Neutrophils % Lymphocytes % Monocytes % Eosinophils % Basophils % Nucleated RBC % Sodium Potassium Chloride Carbon Dioxide Anion Gap BUN Creatinine Est GFR (CKD-EPI)AfAm Est GFR (CKD-EPI)NonAf POC Glucometer 311 Random Glucose Calcium Magnesium Total Bilirubin AST ALT Alkaline Phosphatase Total Protein Albumin Hep C Ab Diagnostic Hepatitis C RNA HCV RNA PCR log coper hand/ml HCV RNA (PCR) IUs/ml HCV RNA PCR w/Genot Rflx Liver Fibrosis Interp S1 S2 RRR Lungs clear Abd- soft, obese No edema Rt 5 th finger --dressing in place A/P ESRD on HD necrotic finger\ PAD -- s/p surgery -- pain control -- midodrine tid -- iv antibiotics - spoke with ID monitor in Tele x 24 hours Problem List - Problems (1) Cellulitis of finger Code(s): L03.019 - CELLULITIS OF UNSPECIFIED FINGER Qualifiers: Laterality: right Qualified Code(s): L03.011 - Cellulitis of right finger (2) ESRD (end stage renal disease) Code(s): N18.6 - END STAGE RENAL DISEASE (3) Wet gangrene Code(s): I96 - GANGRENE, NOT ELSEWHERE CLASSIFIED (4) Anemia Code(s): D64.9 - ANEMIA, UNSPECIFIED Qualifiers: Anemia type: unspecified type Qualified Code(s): D64.9 - Anemia, unspecified (5) ESRD (end stage renal disease) on dialysis Code(s): N18.6 - END STAGE RENAL DISEASE; Z99.2 - DEPENDENCE ON RENAL DIALYSIS
[2018-12-20] MEDS: oxyCODONE HCL 5 MG TABLET PO PRN ×2 (10:15→21:29)
[2018-12-20 10:19] LABS: BASO % 0.6 % (0-2.0); EOS % 1.5 % (0-4.5); HEMATOCRIT 26.7 % (35.4-49); HEMOGLOBIN 8.7 GM/dL (11.7-16.9); LYMPH % 17.4 % (8-40); MCH 29.9 pg (25.7-33.7); MCHC 32.7 g/dl (32.0-35.9); MEAN CELL VOLUME 91.6 fl (80-96); MONO % 12.7 % (3.8-10.2); NEUT % 67.8 % (42.8-82.8); PLATELET COUNT 202 K/MM3 (134-434); RBC 2.91 M/mm3 (4.00-5.60); WHITE BLOOD COUNT 7.3 K/mm3 (4.0-10.0)
[2018-12-20 11:01] LABS: ALBUMIN 2.9 g/dl (3.4-5.0); BILIRUBIN,TOTAL 0.4 mg/dL (0.2-1); BLOOD UREA NITROGEN 43.8 mg/dL (7-18); CALCIUM 8.1 mg/dL (8.5-10.1); CREATININE 6.6 mg/dL (0.55-1.3); MAGNESIUM 2.4 mg/dL (1.8-2.4); POTASSIUM 4.4 mmol/L (3.5-5.1); TOT PROT 6.9 g/dl (6.4-8.2)
--- NOTE | 2018-12-20 12:01 | PN ---
Progress Note, Physician Chief Complaint: POD1 s/p right finger amputation under GA - Current Medication List Current Medications: Active Medications Acetaminophen (Tylenol -) 650 mg PO Q6H PRN PRN Reason: PAIN LEVEL 1-5 Albuterol/Ipratropium (Duoneb -) 1 amp NEB RTID [facility] Atorvastatin Calcium (Lipitor -) 40 mg PO HS [facility] Calcium Carbonate (Calcium Carbonate -) 650 mg PO DAILY PRN PRN Reason: INDIGESTION Heparin Sodium (Porcine) (Heparin -) 5,000 unit SQ BID [facility] Last Admin: 12/20/18 09:59 Dose: 5,000 unit Clindamycin Phosphate (Cleocin 600 Mg Premix Ivpb -) 600 mg in 50 mls @ 100 mls /hr IVPB Q8H-IV [facility]; Protocol Last Admin: 12/20/18 09:59 Dose: 100 mls/hr Ibuprofen (Motrin -) 600 mg PO Q6H PRN PRN Reason: PAIN LEVEL 1-5 Insulin Aspart (Novolog Mix 70/30 Vial) 24 units SQ BIDAC [facility] Insulin Aspart (Novolog Vial Sliding Scale -) 1 vial SQ ACHS [facility]; Protocol Loratadine (Claritin -) 10 mg PO DAILY [facility] Last Admin: 12/20/18 09:58 Dose: 10 mg Midodrine (Proamatine -) 5 mg PO TID-MID [facility] Last Admin: 12/20/18 09:58 Dose: 5 mg Morphine Sulfate (Morphine Sulfate) 4 mg IVPUSH Q4H PRN PRN Reason: PAIN LEVEL 7 - 10 Multivit/Ca Carb/B Cmplx/FA/Prenat (Nephro-Kelly -) 1 tablet PO DAILY [facility] Last Admin: 12/20/18 09:58 Dose: 1 tablet Oxycodone HCl (Roxicodone -) 5 mg PO Q4H PRN PRN Reason: PAIN LEVEL 6-10 Last Admin: 12/20/18 10:15 Dose: 5 mg Pantoprazole Sodium (Protonix -) 40 mg PO DAILY [facility] Last Admin: 12/20/18 09:58 Dose: 40 mg Sevelamer Carbonate (Renvela -) 1,600 mg PO TIDCM [facility] Last Admin: 12/20/18 09:58 Dose: 1,600 mg Simethicone (Mylicon -) 80 mg PO DAILY PRN PRN Reason: GAS - Objective Vital Signs: Vital Signs Temperature 98.7 F 12/20/18 09:57 Pulse Rate 85 12/20/18 09:57 Respiratory Rate 17 12/20/18 09:57 Blood Pressure 125/65 12/20/18 09:57 O2 Sat by Pulse Oximetry (%) 100 12/20/18 03:37 Labs: CBC, BMP 12/20/18 09:32 12/20/18 09:32 INR, PTT INR 1.11 (0.83-1.09) H 12/18/18 16:55 Assessment/Plan Pt had intraoperative hypotension yesterday - recovered in PACU, but decision was made to monitor in ICU as a precaution. Pt appears well today, with no N/V , no hypotension, and minimal incisional pain.
[2018-12-20] MEDS: INSULIN SLIDING SCALE (NOVOLOG) 1 VIAL SQ SCH ×3 (12:05→21:20)
--- NOTE | 2018-12-20 14:15 | PN ---
Progress Note, Physician History of Present Illness: Pt seen. Events noted. He is s/p Rt 5tth digit amp revision POD#1. Had transient hypotension last night and was transferred to Telemetry. He is currently alert, states he feels well, afebrile. Pain is controlled. Has no other complaints. - Current Medication List Current Medications: Active Medications Acetaminophen (Tylenol -) 650 mg PO Q6H PRN PRN Reason: PAIN LEVEL 1-5 Albuterol/Ipratropium (Duoneb -) 1 amp NEB RTID [facility]ERIA Atorvastatin Calcium (Lipitor -) 40 mg PO HS [facility] Calcium Carbonate (Calcium Carbonate -) 650 mg PO DAILY PRN PRN Reason: INDIGESTION Heparin Sodium (Porcine) (Heparin -) 5,000 unit SQ BID [facility] Last Admin: 12/20/18 09:59 Dose: 5,000 unit Clindamycin Phosphate (Cleocin 600 Mg Premix Ivpb -) 600 mg in 50 mls @ 100 mls /hr IVPB Q8H-IV [facility]; Protocol Last Admin: 12/20/18 09:59 Dose: 100 mls/hr Ibuprofen (Motrin -) 600 mg PO Q6H PRN PRN Reason: PAIN LEVEL 1-5 Insulin Aspart (Novolog Mix 70/30 Vial) 24 units SQ BIDAC [facility] Insulin Aspart (Novolog Vial Sliding Scale -) 1 vial SQ ACHS [facility]; Protocol Last Admin: 12/20/18 12:05 Dose: 6 units Loratadine (Claritin -) 10 mg PO DAILY [facility] Last Admin: 12/20/18 09:58 Dose: 10 mg Midodrine (Proamatine -) 5 mg PO TID-MID [facility] Last Admin: 12/20/18 09:58 Dose: 5 mg Morphine Sulfate (Morphine Sulfate) 4 mg IVPUSH Q4H PRN PRN Reason: PAIN LEVEL 7 - 10 Multivit/Ca Carb/B Cmplx/FA/Prenat (Nephro-Kelly -) 1 tablet PO DAILY [facility] Last Admin: 12/20/18 09:58 Dose: 1 tablet Oxycodone HCl (Roxicodone -) 5 mg PO Q4H PRN PRN Reason: PAIN LEVEL 6-10 Last Admin: 12/20/18 10:15 Dose: 5 mg Pantoprazole Sodium (Protonix -) 40 mg PO DAILY [facility] Last Admin: 12/20/18 09:58 Dose: 40 mg Sevelamer Carbonate (Renvela -) 1,600 mg PO TIDCM [facility] Last Admin: 12/20/18 12:07 Dose: 1,600 mg Simethicone (Mylicon -) 80 mg PO DAILY PRN PRN Reason: GAS - Objective Vital Signs: Vital Signs Temperature 98.7 F 12/20/18 09:57 Pulse Rate 85 12/20/18 09:57 Respiratory Rate 17 12/20/18 09:57 Blood Pressure 125/65 12/20/18 09:57 O2 Sat by Pulse Oximetry (%) 99 12/20/18 10:15 Constitutional: Yes: No Distress, Calm Cardiovascular: Yes: Regular Rate and Rhythm Respiratory: Yes: Regular Gastrointestinal: Yes: Normal Bowel Sounds, Soft, Abdomen, Obese Genitourinary: Yes: WNL Musculoskeletal: Yes: WNL Extremities: Yes: Amputation Integumentary: Yes: WNL Wound/Incision: Yes: Other (Rt hand dressing intact, no current tenderness) Neurological: Yes: Alert, Oriented Labs: CBC, BMP 12/20/18 09:32 12/20/18 09:32 INR, PTT INR 1.11 (0.83-1.09) H 12/18/18 16:55 Microbiology 12/18/18 16:55 Blood - Peripheral Venous Blood Culture - Preliminary NO GROWTH OBTAINED AFTER 24 HOURS, INCUBATION TO CONTINUE FOR 4 DAYS. 12/18/18 16:55 Blood - Peripheral Venous Blood Culture - Preliminary NO GROWTH OBTAINED AFTER 24 HOURS, INCUBATION TO CONTINUE FOR 4 DAYS. - ....Imaging MRI: Pending Problem List - Problems (1) Cellulitis of finger Code(s): L03.019 - CELLULITIS OF UNSPECIFIED FINGER Qualifiers: Laterality: right Qualified Code(s): L03.011 - Cellulitis of right finger (2) ESRD (end stage renal disease) Code(s): N18.6 - END STAGE RENAL DISEASE (3) Wet gangrene Code(s): I96 - GANGRENE, NOT ELSEWHERE CLASSIFIED (4) Anemia Code(s): D64.9 - ANEMIA, UNSPECIFIED Qualifiers: Anemia type: unspecified type Qualified Code(s): D64.9 - Anemia, unspecified (5) GERD (gastroesophageal reflux disease) Code(s): K21.9 - GASTRO-ESOPHAGEAL REFLUX DISEASE WITHOUT ESOPHAGITIS Qualifiers: Esophagitis presence: esophagitis presence not specified Qualified Code(s) : K21.9 - Gastro-esophageal reflux disease without esophagitis (6) HTN (hypertension) Code(s): I10 - ESSENTIAL (PRIMARY) HYPERTENSION Qualifiers: Hypertension type: essential hypertension Qualified Code(s): I10 - Essential (primary) hypertension (7) Peptic ulcer disease Code(s): K27.9 - PEPTIC ULC, SITE UNSP, UNSP AC OR CHR, W/O HEMOR OR PERF (8) S/P CABG (coronary artery bypass graft) Code(s): Z95.1 - PRESENCE OF AORTOCORONARY BYPASS GRAFT (9) Upper GI bleed Code(s): K92.2 - GASTROINTESTINAL HEMORRHAGE, UNSPECIFIED Assessment/Plan Rt 5th digit gangrene r/o OM s/p revision of amputation POD#1 Rt hand cellulitis Transient hypotension Uncontrolled DM ESRD on HD CAD s/p CABG PUD s/p Rt 3rd digit/partial Lt 5th digit amputations -- continue Zosyn/Clindamycin for now, given Vancomycin post HD -- f/u MRI results -- blood cultures neg 24hr, wound cultures were requested -- monitor vitals, continue wound care Pt currently stable, afebrile
[2018-12-20] MEDS: ALBUTEROL SO4 2.5/IPRATROPIUM 0.5 INH SOL 3 ML VIAL.NEB. NEB SCH ×2 (14:25→20:20)
--- NOTE | 2018-12-20 14:57 | CON.NEP ---
Consult Consult Specialty:: nephrology Referred by:: vascular surgery Reason for Consultation:: End stage renal disease - History of Present Illness Chief Complaint: pain in the right fifth finger History of Present Illness: 58 year old man with type 2 diabetes mellitus, peripheral vascular disease and end stage renal disease admitted with infected right fifth finger stump. Patient had debridement and revision done by vascular suerger. Patient is feeling much better today He denies any new complaint. 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 No: Aortic Stenosis Gastrointestinal: Yes: GERD Renal/: Yes: Renal Failure, Hemodialysis Musculoskeletal: Yes: Other (peripheral vascular disease) Endocrine: Yes: Diabetes Mellitus - Past Surgical History Past Surgical History: Yes: Amputation, AV Fistula/Graft, CABG - Alcohol/Substance Use Hx Alcohol Use: No History of Substance Use: reports: None - Smoking History Smoking history: Unknown if ever smoked Have you smoked in the past 12 months: No Aproximately how many cigarettes per day: 0 - Social History Usual Living Arrangement: With Spouse ADL: Independent History of Recent Travel: No Home Medications - Allergies Allergies/Adverse Reactions: Allergies Allergy/AdvReac Type Severity Reaction Status Date / Time No Known Drug Allergies Allergy Verified 12/18/18 15:33 - Home Medications Home Medications: Ambulatory Orders Albuterol 2.5/Ipratropium 0.5 [Duoneb -] 1 amp NEB TID 04/27/18 Aspirin [Ecotrin] 81 mg PO DAILY 04/27/18 Esomeprazole Magnesium [Nexium 24Hr] 40 mg PO DAILY 04/27/18 Folic Acid/Vit B Complex and C [Renal-Kelly Tablet] 0.8 mg PO DAILY 04/27/18 Loratadine [Claritin] 10 mg PO DAILY 04/27/18 Olopatadine HCl [Pataday] 1 drop OU DAILY 04/27/18 Omeprazole 40 mg PO DAILY 04/27/18 Sevelamer Carbonate [Renvela -] 1,600 mg PO TID 04/27/18 Acetaminophen [Tylenol .Regular Strength -] 325 mg PO Q3H PRN tablet 05/04/18 Atorvastatin Ca [Lipitor] 40 mg PO HS tablet 05/04/18 Insulin (Novolog 70/30) [Novolog Mix 70/30 Vial -] 24 units SQ BIDAC units 11/14 Midodrine HCl [Proamatine -] 10 mg PO ASDIR 08/07/18 Pantoprazole Sodium [Protonix] 40 mg PO DAILY #7 tablet. 08/07/18 Calcium Carbonate/Simethicone [Maalox Advanced Tab Chew] 1 each PO DAILY PRN Review of Systems - Review of Systems HENT: reports: No Symptoms Neck: reports: No Symptoms Cardiovascular: reports: No Symptoms Respiratory: reports: No Symptoms Gastrointestinal: reports: No Symptoms Genitourinary: reports: No Symptoms Musculoskeletal: reports: Extremity Pain (pain in the right 5th finger) Psychiatric: reports: No Symptoms Nephrology Consult - Height Height: 5 ft 7 in - Weight Weight: 209 lb 7.026 oz - BMI Body Mass Index (BMI): 32.8 - Lab Results CBC,BMP: CBC, BMP 12/20/18 09:32 12/20/18 09:32 Anion Gap: Anion Gap Anion Gap 11 MMOL/L (8-16) 12/20/18 09:32 - Physical Examination Vital Signs: Vital Signs Temperature 98.4 F 12/20/18 14:50 Pulse Rate 83 12/20/18 14:50 Respiratory Rate 17 12/20/18 14:50 Blood Pressure 131/89 12/20/18 14:50 O2 Sat by Pulse Oximetry (%) 99 12/20/18 10:15 Constitutional: Yes: Well Nourished, No Distress, Calm HENT: Yes: WNL Neck: Yes: Supple Cardiovascular: Yes: Regular Rate and Rhythm Respiratory: Yes: CTA Bilaterally Gastrointestinal: Yes: WNL, Normal Bowel Sounds, Abdomen, Obese Access for Hemodialysis: AV Graft Musculoskeletal: Yes: Other (right hand dressing and edema) Extremities: Yes: Amputation (right fifth digit partial amputation) Psychiatric: Yes: Alert, Oriented Problem List - Problems (1) Cellulitis of finger Code(s): L03.019 - CELLULITIS OF UNSPECIFIED FINGER Qualifiers: Laterality: right Qualified Code(s): L03.011 - Cellulitis of right finger (2) ESRD (end stage renal disease) Assessment/Plan: 58 year old man with end stage renal disease admitted with infected right 5th finger. Patient was scheduled for hemodialysis yesterday. Tentatively for repeat hemodialysis on Friday and as needed. Code(s): N18.6 - END STAGE RENAL DISEASE (3) Anemia Assessment/Plan: Epogen 5000 units administered IVP during hemodialysis. Will follow upon discharge at the outpatient dialysis unit. Code(s): D64.9 - ANEMIA, UNSPECIFIED Qualifiers: Anemia type: unspecified type Qualified Code(s): D64.9 - Anemia, unspecified
[2018-12-20] MEDS: INSULIN (NOVOLOG MIX 70/30) 100 UNITS/ML MDV SQ SCH (17:15)
[2018-12-20] MEDS: ATORVASTATIN CA 40 MG TABLET (FP) PO SCH (21:20)
[2018-12-20] MEDS ORDERED: ATORVASTATIN CA 40 MG TABLET (FP) PO SCH (22:00)
[2018-12-21] MEDS: CLINDAMYCIN 600MG PREMIX IVPB 600 MG/50 ML BAG IVPB SCH ×3 (03:46→18:13)
[2018-12-21 05:58] LABS: BASO % 0.4 % (0-2.0); EOS % 1.9 % (0-4.5); HEMATOCRIT 27.1 % (35.4-49); HEMOGLOBIN 8.9 GM/dL (11.7-16.9); LYMPH % 17.6 % (8-40); MEAN CELL VOLUME 91.1 fl (80-96); MEAN PLT VOLUME 8.8 fl (7.5-11.1); NEUT % 66.1 % (42.8-82.8); PLATELET COUNT 191 K/MM3 (134-434); RBC 2.98 M/mm3 (4.00-5.60); RDW 15.6 % (11.9-15.9); WHITE BLOOD COUNT 6.8 K/mm3 (4.0-10.0)
[2018-12-21] MEDS: INSULIN SLIDING SCALE (NOVOLOG) 1 VIAL SQ SCH ×4 (06:13→21:51)
[2018-12-21] MEDS: INSULIN (NOVOLOG MIX 70/30) 100 UNITS/ML MDV SQ SCH ×2 (06:13→18:12)
[2018-12-21 06:22] LABS: ALBUMIN 2.9 g/dl (3.4-5.0); BILIRUBIN,TOTAL 0.4 mg/dL (0.2-1); BLOOD UREA NITROGEN 58.3 mg/dL (7-18); CALCIUM 7.9 mg/dL (8.5-10.1); TOT PROT 6.8 g/dl (6.4-8.2)
[2018-12-21 06:25] LABS: CREATININE 8.4 mg/dL (0.55-1.3)
--- NOTE | 2018-12-21 06:36 | PN ---
Progress Note, Physician Chief Complaint: right hand digit infection History of Present Illness: 58 yo RHD male PMH ESRD (HD on , , ), DM, PUD, prior bleeding gastric ulcers found on EGD, mesenteric ischemia, CAD s/p CABG august 2017, stents, hx of multiple amputations of right hand fingers. He has been admitted for observation in telemetry after a transient hemodynamic instability in the perioperative period. Now stable - Current Medication List Current Medications: Active Medications Acetaminophen (Tylenol -) 650 mg PO Q6H PRN PRN Reason: PAIN LEVEL 1-5 Albuterol/Ipratropium (Duoneb -) 1 amp NEB RTID [facility] Last Admin: 12/20/18 20:20 Dose: 1 amp Atorvastatin Calcium (Lipitor -) 40 mg PO HS [facility] Last Admin: 12/20/18 21:20 Dose: 40 mg Calcium Carbonate (Calcium Carbonate -) 650 mg PO DAILY PRN PRN Reason: INDIGESTION Heparin Sodium (Porcine) (Heparin -) 5,000 unit SQ BID [facility] Last Admin: 12/20/18 21:20 Dose: 5,000 unit Clindamycin Phosphate (Cleocin 600 Mg Premix Ivpb -) 600 mg in 50 mls @ 100 mls /hr IVPB Q8H-IV [facility]; Protocol Last Admin: 12/21/18 03:46 Dose: 100 mls/hr Ibuprofen (Motrin -) 600 mg PO Q6H PRN PRN Reason: PAIN LEVEL 1-5 Insulin Aspart (Novolog Mix 70/30 Vial) 24 units SQ BIDAC [facility] Last Admin: 12/21/18 06:13 Dose: 24 units Insulin Aspart (Novolog Vial Sliding Scale -) 1 vial SQ ACHS [facility]; Protocol Last Admin: 12/21/18 06:13 Dose: 8 units Loratadine (Claritin -) 10 mg PO DAILY [facility] Last Admin: 12/20/18 09:58 Dose: 10 mg Midodrine (Proamatine -) 5 mg PO TID-MID [facility] Last Admin: 12/20/18 17:15 Dose: 5 mg Morphine Sulfate (Morphine Sulfate) 4 mg IVPUSH Q4H PRN PRN Reason: PAIN LEVEL 7 - 10 Multivit/Ca Carb/B Cmplx/FA/Prenat (Nephro-Kelly -) 1 tablet PO DAILY [facility] Last Admin: 12/20/18 09:58 Dose: 1 tablet Oxycodone HCl (Roxicodone -) 5 mg PO Q4H PRN PRN Reason: PAIN LEVEL 6-10 Last Admin: 12/20/18 21:29 Dose: 5 mg Pantoprazole Sodium (Protonix -) 40 mg PO DAILY [facility] Last Admin: 12/20/18 09:58 Dose: 40 mg Sevelamer Carbonate (Renvela -) 1,600 mg PO TIDCM [facility] Last Admin: 12/20/18 17:15 Dose: 1,600 mg Simethicone (Mylicon -) 80 mg PO DAILY PRN PRN Reason: GAS - Objective Vital Signs: Vital Signs Temperature 98.6 F 12/21/18 04:00 Pulse Rate 64 12/21/18 04:00 Respiratory Rate 19 12/21/18 04:00 Blood Pressure 153/47 L 12/21/18 04:00 O2 Sat by Pulse Oximetry (%) 99 12/20/18 19:25 Vital Signs Period Temp Pulse Resp BP Sys/Harris Pulse Ox Last 24 Hr 98.3 F-98.7 F 64-85 16-19 118-153/47-89 99-99 Intake & Output 12/20/18 12/20/18 12/21/18 15:59 23:59 07:59 Intake Total 200 Balance 200 Weight 209 lb 7.026 oz Intake: IVPB 200 Other: Voiding Method Urinal Toilet # Unmeasured Voids Void 1 Height 5 ft 7 in Body Mass Index (BMI) 32.8 Constitutional: Yes: Well Nourished, No Distress, Calm, Obese Eyes: Yes: Conjunctiva Clear, EOM Intact HENT: Yes: Atraumatic, Normocephalic Neck: Yes: Supple, Trachea Midline Cardiovascular: Yes: Regular Rate and Rhythm, S1, S2 Respiratory: Yes: Regular, CTA Bilaterally Gastrointestinal: Yes: Normal Bowel Sounds, Soft, Abdomen, Obese. No: Tenderness ...Rectal Exam: Yes: Deferred Genitourinary: No: CVA Tenderness - Left, CVA Tenderness - Right Breast(s): Yes: Gynecomastia. No: Mass, Nipple Inversion, Skin Changes Musculoskeletal: No: Muscle Pain, Muscle Weakness Extremities: No: Cool, Cyanosis Edema: No Peripheral Pulses WNL: Yes Peripheral Pulses: Left Radial: 2+, Right Radial: 2+, Left Doralis Pedis: 2+, Right Dorsalis Pedis: 2+, Left Femoral: 2+, Right Femoral: 2+ Integumentary: No: Erythema, Incision, Jaundice Wound/Incision: Yes: Clean/Dry, Well Approximated, Dressing Dry and Intact Neurological: Yes: Alert, Oriented Psychiatric: Yes: Alert, Oriented Labs: CBC, BMP 12/21/18 05:00 12/21/18 05:00 INR, PTT INR 1.11 (0.83-1.09) H 12/18/18 16:55 Microbiology 12/18/18 16:55 Blood - Peripheral Venous Blood Culture - Preliminary NO GROWTH OBTAINED AFTER 48 HOURS, INCUBATION TO CONTINUE FOR 3 DAYS. 12/18/18 16:55 Blood - Peripheral Venous Blood Culture - Preliminary NO GROWTH OBTAINED AFTER 48 HOURS, INCUBATION TO CONTINUE FOR 3 DAYS. Problem List - Problems (1) Wet gangrene Assessment/Plan: 58yo male RHD with s/p multiple digital amputations for gangrene now with Right small finger/ ulanr digit wet gangrene POD#2 s/p Revision amputation or right ulnar digit wet gangrene/small finger. Patient reports pain at the site. Medical management IV antibiotics f/u culture from OR - Delayed submission glycemeic control adequate analgesia elevation of right arm above heart Keep dressing clean and dry until followup Discharge at the discretion of the primary team I will be away on 12/22 & 12/23 I am available by phone for questions. Code(s): I96 - GANGRENE, NOT ELSEWHERE CLASSIFIED (2) ESRD (end stage renal disease) Code(s): N18.6 - END STAGE RENAL DISEASE (3) Diabetes Code(s): E11.9 - TYPE 2 DIABETES MELLITUS WITHOUT COMPLICATIONS Qualifiers: Diabetes mellitus type: type 2 Diabetes mellitus group home insulin use: with group home use Diabetes mellitus complication status: with other specified complication Qualified Code(s): E11.69 - Type 2 diabetes mellitus with other specified complication; Z79.4 - long-term (current) use of 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
[2018-12-21] MEDS: ALBUTEROL SO4 2.5/IPRATROPIUM 0.5 INH SOL 3 ML VIAL.NEB. NEB SCH ×3 (08:00→20:50)
[2018-12-21] MEDS ORDERED: PIPERACILLIN/TAZOB 2.25 GM 2.25 GM in DEXTROSE 5%-WATER - 50 ML IVPB ONE (08:15)
--- NOTE | 2018-12-21 10:02 | PN ---
Progress Note (short form) - Note Progress Note: pt seen/ examined chart reviewed Awake/ comfortable denies cp/sob. Vital Signs Temp 98.6 F 12/21/18 04:00 Pulse 64 12/21/18 04:00 Resp 19 12/21/18 04:00 BP 153/47 L 12/21/18 04:00 Pulse Ox 99 12/20/18 19:25 Intake & Output 12/20/18 12/20/18 12/21/18 11:59 23:59 11:59 Intake Total 200 Balance 200 Weight 209 lb 7.026 oz 209 lb 7.026 oz 215 lb 1.6 oz Intake: IVPB 200 Other: Voiding Method Urinal Toilet # Unmeasured Voids Void 0 1 Height 5 ft 7 in Body Mass Index (BMI) 32.8 Weight Measurement Method Built in Bedscale Built in Bedscale Active Medications Acetaminophen (Tylenol -) 650 mg PO Q6H PRN PRN Reason: PAIN LEVEL 1-5 Albuterol/Ipratropium (Duoneb -) 1 amp NEB RTID [facility] Last Admin: 12/21/18 08:00 Dose: 1 amp Atorvastatin Calcium (Lipitor -) 40 mg PO HS [facility] Last Admin: 12/20/18 21:20 Dose: 40 mg Calcium Carbonate (Calcium Carbonate -) 650 mg PO DAILY PRN PRN Reason: INDIGESTION Heparin Sodium (Porcine) (Heparin -) 5,000 unit SQ BID [facility] Last Admin: 12/20/18 21:20 Dose: 5,000 unit Clindamycin Phosphate (Cleocin 600 Mg Premix Ivpb -) 600 mg in 50 mls @ 100 mls /hr IVPB Q8H-IV [facility]; Protocol Last Admin: 12/21/18 03:46 Dose: 100 mls/hr Ibuprofen (Motrin -) 600 mg PO Q6H PRN PRN Reason: PAIN LEVEL 1-5 Insulin Aspart (Novolog Mix 70/30 Vial) 24 units SQ BIDAC [facility] Last Admin: 12/21/18 06:13 Dose: 24 units Insulin Aspart (Novolog Vial Sliding Scale -) 1 vial SQ ACHS [facility]; Protocol Last Admin: 12/21/18 06:13 Dose: 8 units Loratadine (Claritin -) 10 mg PO DAILY [facility] Last Admin: 12/20/18 09:58 Dose: 10 mg Midodrine (Proamatine -) 5 mg PO TID-MID [facility] Last Admin: 12/20/18 17:15 Dose: 5 mg Morphine Sulfate (Morphine Sulfate) 4 mg IVPUSH Q4H PRN PRN Reason: PAIN LEVEL 7 - 10 Multivit/Ca Carb/B Cmplx/FA/Prenat (Nephro-Kelly -) 1 tablet PO DAILY [facility] Last Admin: 12/20/18 09:58 Dose: 1 tablet Oxycodone HCl (Roxicodone -) 5 mg PO Q4H PRN PRN Reason: PAIN LEVEL 6-10 Last Admin: 12/20/18 21:29 Dose: 5 mg Pantoprazole Sodium (Protonix -) 40 mg PO DAILY [facility] Last Admin: 12/20/18 09:58 Dose: 40 mg Sevelamer Carbonate (Renvela -) 1,600 mg PO TIDCM [facility] Last Admin: 12/20/18 17:15 Dose: 1,600 mg Simethicone (Mylicon -) 80 mg PO DAILY PRN PRN Reason: GAS CBC, BMP 12/21/18 05:00 12/21/18 05:00 Microbiology 12/18/18 16:55 Blood Culture - Preliminary Blood - Peripheral Venous NO GROWTH OBTAINED AFTER 48 HOURS, INCUBATION TO CONTINUE FOR 3 DAYS. 12/18/18 16:55 Blood Culture - Preliminary Blood - Peripheral Venous NO GROWTH OBTAINED AFTER 48 HOURS, INCUBATION TO CONTINUE FOR 3 DAYS. Physical Exam S1 S2 RRR Lungs clear Abd- soft, obese No edema Rt 5 th finger --dressing in place. awake/ comfortable A/P ESRD on HD necrotic finger PAD -- s/p surgery -- pain control -- midodrine tid -- iv antibiotics - Increase novolog as bgm High Cardiology consult as pt tachycardic will follow Discussed with nursing staff also. Problem List - Problems (1) Tachycardia Code(s): R00.0 - TACHYCARDIA, UNSPECIFIED (2) Cellulitis of finger Code(s): L03.019 - CELLULITIS OF UNSPECIFIED FINGER Qualifiers: Laterality: right Qualified Code(s): L03.011 - Cellulitis of right finger (3) ESRD (end stage renal disease) Code(s): N18.6 - END STAGE RENAL DISEASE (4) Wet gangrene Code(s): I96 - GANGRENE, NOT ELSEWHERE CLASSIFIED (5) Anemia associated with chronic renal failure Code(s): D63.1 - ANEMIA IN CHRONIC KIDNEY DISEASE (6) Diabetes Code(s): E11.9 - TYPE 2 DIABETES MELLITUS WITHOUT COMPLICATIONS Qualifiers: Diabetes mellitus type: type 2 Diabetes mellitus ticket counter insulin use: with ticket counter use Diabetes mellitus complication status: with other specified complication Qualified Code(s): E11.69 - Type 2 diabetes mellitus with other specified complication; Z79.4 - halfway (current) use of insulin
[2018-12-21] MEDS: SEVELAMER CARBONATE 800 MG TAB (FP) PO SCH ×2 (12:33→18:12)
[2018-12-21] MEDS: LORATADINE 10 MG TABLET PO SCH (12:34)
[2018-12-21] MEDS: HEPARIN NA (PORCINE) 5,000 UNITS/ML 1ML VIAL SQ SCH ×2 (12:34→21:50)
[2018-12-21] MEDS: MIDODRINE HCL 5 MG TABLET PO SCH ×4 (12:35→19:51)
[2018-12-21] MEDS: PANTOPRAZOLE 40 MG TABLET (FP) PO SCH (12:35)
[2018-12-21] MEDS: VITAMIN B COMP W-C 1 EA TABLET PO SCH (12:35)
[2018-12-21] MEDS ORDERED: PIPERACILLIN/TAZOBACTAM 2.25 GM VIAL IVPB ONE (12:39)
[2018-12-21] MEDS ORDERED: DEXTROSE 5%-WATER - 50 ML IVPB ONE ×2 (12:39→21:40)
[2018-12-21] MEDS: oxyCODONE HCL 5 MG TABLET PO PRN (13:31)
--- NOTE | 2018-12-21 15:25 | CON.CARD ---
Consult Consult Specialty:: Cardiology Referred by:: Medicine Reason for Consultation:: tachycardia - History of Present Illness Chief Complaint: tachycardia History of Present Illness: 58M h/o ESRD on HD, DM, PUD, CAD s/p CABG 08/2017 and prior stents, multiple prior amputations p/w finger wounds, s/p amputation here. Post op had low BP and tachycardia. Notes history of low BP on dialysis, takes midodrine at home. No chest pain, palps, dizziness, edema. Stable dyspnea on exertion. Sees Dr. Owens for cardio. 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 No: Aortic Stenosis Gastrointestinal: Yes: GERD Renal/: Yes: Renal Failure, Hemodialysis Musculoskeletal: Yes: Other (peripheral vascular disease) Endocrine: Yes: Diabetes Mellitus - Past Surgical History Past Surgical History: Yes: Amputation, AV Fistula/Graft, CABG - Alcohol/Substance Use Hx Alcohol Use: No History of Substance Use: reports: None - Smoking History Smoking history: Unknown if ever smoked Have you smoked in the past 12 months: No Aproximately how many cigarettes per day: 0 - Social History Usual Living Arrangement: With Spouse ADL: Independent History of Recent Travel: No Home Medications - Allergies Allergies/Adverse Reactions: Allergies Allergy/AdvReac Type Severity Reaction Status Date / Time No Known Drug Allergies Allergy Verified 12/18/18 15:33 - Home Medications Home Medications: Ambulatory Orders Albuterol 2.5/Ipratropium 0.5 [Duoneb -] 1 amp NEB TID 04/27/18 Aspirin [Ecotrin] 81 mg PO DAILY 04/27/18 Esomeprazole Magnesium [Nexium 24Hr] 40 mg PO DAILY 04/27/18 Folic Acid/Vit B Complex and C [Renal-Kelly Tablet] 0.8 mg PO DAILY 04/27/18 Loratadine [Claritin] 10 mg PO DAILY 04/27/18 Olopatadine HCl [Pataday] 1 drop OU DAILY 04/27/18 Omeprazole 40 mg PO DAILY 04/27/18 Sevelamer Carbonate [Renvela -] 1,600 mg PO TID 04/27/18 Acetaminophen [Tylenol .Regular Strength -] 325 mg PO Q3H PRN tablet 05/04/18 Atorvastatin Ca [Lipitor] 40 mg PO HS tablet 05/04/18 Insulin (Novolog 70/30) [Novolog Mix 70/30 Vial -] 24 units SQ BIDAC units 11/14 Midodrine HCl [Proamatine -] 10 mg PO ASDIR 08/07/18 Pantoprazole Sodium [Protonix] 40 mg PO DAILY #7 tablet. 08/07/18 Calcium Carbonate/Simethicone [Maalox Advanced Tab Chew] 1 each PO DAILY PRN Family Disease History - Family Disease History Family History: Unremarkable Review of Systems - Review of Systems Constitutional: reports: No Symptoms Eyes: reports: No Symptoms HENT: reports: No Symptoms Neck: reports: No Symptoms Cardiovascular: reports: No Symptoms Respiratory: reports: No Symptoms Gastrointestinal: reports: No Symptoms Genitourinary: reports: No Symptoms Musculoskeletal: reports: No Symptoms Integumentary: reports: No Symptoms Neurological: reports: No Symptoms Endocrine: reports: No Symptoms Hematology/Lymphatic: reports: No Symptoms Psychiatric: reports: No Symptoms Vital Signs: Vital Signs Temperature 98.6 F 12/21/18 04:00 Pulse Rate 64 12/21/18 04:00 Respiratory Rate 12/21/18 04:00 Blood Pressure 153/47 L 12/21/18 04:00 O2 Sat by Pulse Oximetry (%) 99 12/21/18 09:00 Constitutional: Yes: No Distress, Calm Eyes: Yes: Conjunctiva Clear, EOM Intact HENT: Yes: Atraumatic, Normocephalic Neck: Yes: Supple, Trachea Midline Respiratory: Yes: Regular, CTA Bilaterally Gastrointestinal: Yes: Normal Bowel Sounds, Soft Cardiovascular: Yes: Regular Rate and Rhythm PMI: Non-Displaced Heart Sounds: Yes: S1, S2 Murmur: No: Systolic Murmur Musculoskeletal: No: Back Pain Extremities: No: Cold Edema: No Peripheral Pulses WNL: No Peripheral Pulses: 1+ Left Doralis Pedis, 1+ Right Dorsalis Pedis Integumentary: No: Jaundice Neurological: Yes: Alert, Oriented Psychiatric: No: Agitated - Other Data Labs, Other Data: CBC, BMP 12/21/18 05:00 12/21/18 05:00 INR, PTT INR 1.11 (0.83-1.09) H 12/18/18 16:55 Assessment/Plan tele: sinus, sinus tachycardia, 3 bt NSVT, brief SVT EKG: sinus, nl intervals, no ischemic changes 58M h/o ESRD on HD, DM, PUD, CAD s/p CABG 08/2017 and prior stents, multiple prior amputations p/w finger wounds, s/p amputation here with tachycardia, hypotension post op Tachycardia, hypotension - improving - tachycardia may be multifactorial - post op pain, infection, anemia - check echo - continue midodrine - monitoring on tele CAD s/p CABG - cont statin, restart aspirin when able per surgery s/p finger amputations - manage per surgery DM - manage per primary
[2018-12-21] MEDS ORDERED: PT OWN MED DRAWER 7, Y5N ONE (18:09)
--- NOTE | 2018-12-21 20:36 | OP ---
DATE OF OPERATION: 12/19/2018 PREOPERATIVE DIAGNOSIS: Wet gangrene, right ulnar digit small finger. POSTOPERATIVE DIAGNOSIS: Wet gangrene, right ulnar digit small finger. PROCEDURE: Revision, amputation right ulnar digit small finger. ATTENDING SURGEON: Erik Dean M.D. ACCOUNTS EXECUTIVE: None. ANESTHESIOLOGIST: Nena Tapia M.D. ANESTHESIA: General anesthesia LMA was placed. SPECIMEN: Right ulnar digit, small finger, plus a deep wound culture. ESTIMATED BLOOD LOSS: 1 mL INTRAVENOUS FLUID ADMINISTERED: 1500 mL BRIEF FINDINGS: Patient had a purulent wet gangrene right ulnar digit. Tourniquet was placed for 7 minutes during the revision amputation. He was primarily closed after culture was sent. He had a brief period of hemodynamic instability intraoperative in the perioperative period, which was managed by Anesthesia. INDICATION: Patient is a 58-year-old male right hand dominant with multiple digital amputations secondary to complications of diabetes and peripheral vascular disease, end-stage renal disease as well. He had wet gangrene develop over 2 weeks preceding his presentation to the emergency department. He was counseled regarding risks, benefits, and alternatives of surgical revision, amputation, and signed informed consent, and was taken for procedure. PROCEDURE: Patient is brought to the operating room, was placed in the supine position on the operating table. The right arm extended at 90 degrees perpendicular body to midline axis. The shoulder, right hand was prepped and draped into a standard surgical field. A formal timeout was completed, identifying the operative site. Patient had SCDs placed to compression lower extremity. He was induced with sedation, LMA was placed without incident. After formal timeout was completed identifying operative site and digit, we began with a fishmouth incision on the right ulnar digit which was the small finger. It was incised with 15 blade scalpel, deepened in line through subcutaneous tissue. Care was taken to take a culture of the deep wound when there was a small amount of purulent discharge adjacent to the bone in a flexor sheath. It was taken in the middle phalanx at approximately the middle of the middle phalanx shaft. The scalpel was used to dissect down to the flexor tendon sheath, culture was sent, at which point we used a rongeur to transect the bone. It was then used to back the bone into a rounded shape, not to cause soft tissue irritation. The neurovascular bundles were cauterized in this area. The flaps were inspected, and then the site was irrigated copiously with a half liter of sterile irrigation fluid. The fishmouth incision was then approximated with 4-0 nylon, first with a horizontal mattress to approximate the edges, and then interrupted mattress sutures along the length of the incision. Tourniquet was removed, hemostasis was obtained, at which point we placed then a sterile dressing including Xeroform, 4x4s, gauze, Kerlix wrap and Coban. Patient was awoken from anesthesia having tolerated anesthesia well. He was stable through surgery and had a brief period of hemodynamic instability which was managed by Anesthesia. MD MICHELE Mckeon/[id number]
--- NOTE | 2018-12-21 20:54 | HOSP ---
Subjective - Review of Symptoms Events since last encounter: Hospitalist Encounter Notified by the nurse that the patient's HR is 120. Plan: Stat EKG Rectal Temp Assessment: This is a 58 y/o man PMH ESRD (,, ), CAD s/p CABG, DM. s/p revision amputation of right ulnar digit/ small finger POD #0 secondary to wet gangrene Post op patient had low BP and tachycardia and was transferred to Telemetry [facility]West. Physical Examination Vital Signs: Vital Signs Temperature 98.6 F 12/21/18 12:00 Pulse Rate 76 12/21/18 17:00 Respiratory Rate 18 12/21/18 17:00 Blood Pressure 111/66 12/21/18 17:00 O2 Sat by Pulse Oximetry (%) 99 12/21/18 09:00 Constitutional: Yes: No Distress, Calm, Obese Eyes: Yes: WNL, Conjunctiva Clear, EOM Intact, PERRL HENT: Yes: WNL, Atraumatic, Normocephalic Neck: Yes: WNL, Supple, Trachea Midline Cardiovascular: Yes: Tachycardia, S1, S2 Respiratory: Yes: WNL, Regular, CTA Bilaterally Gastrointestinal: Yes: Normal Bowel Sounds, Soft, Abdomen, Obese Peripheral Pulses WNL: Yes Wound/Incision: Yes: Dressing Dry and Intact Neurological: Yes: WNL, Alert, Oriented Psychiatric: Yes: WNL, Alert, Oriented Labs: CBC, BMP 12/21/18 05:00 12/21/18 05:00 Hospitalist Encounter Outcome: EKG reviewed ST no abnormalities Rectal Temp-99.0
--- NOTE | 2018-12-21 21:26 | PN ---
Progress Note, Physician History of Present Illness: stable doing well hand is bandaged - Current Medication List Current Medications: Active Medications Acetaminophen (Tylenol -) 650 mg PO Q6H PRN PRN Reason: PAIN LEVEL 1-5 Albuterol/Ipratropium (Duoneb -) 1 amp NEB RTID [facility] Last Admin: 12/21/18 20:50 Dose: 1 amp Atorvastatin Calcium (Lipitor -) 40 mg PO HS [facility] Last Admin: 12/20/18 21:20 Dose: 40 mg Calcium Carbonate (Calcium Carbonate -) 650 mg PO DAILY PRN PRN Reason: INDIGESTION Heparin Sodium (Porcine) (Heparin -) 5,000 unit SQ BID [facility] Last Admin: 12/21/18 12:34 Dose: 5,000 unit Clindamycin Phosphate (Cleocin 600 Mg Premix Ivpb -) 600 mg in 50 mls @ 100 mls /hr IVPB Q8H-IV [facility]; Protocol Last Admin: 12/21/18 18:13 Dose: 100 mls/hr Piperacillin Sod/Tazobactam (Sod 3.375 gm/ Dextrose) 50 mls @ 100 mls/hr IVPB Q8H-IV [facility]; Protocol Ibuprofen (Motrin -) 600 mg PO Q6H PRN PRN Reason: PAIN LEVEL 1-5 Insulin Aspart (Novolog Vial Sliding Scale -) 1 vial SQ ACHS [facility]; Protocol Last Admin: 12/21/18 18:21 Dose: 4 units Insulin Aspart (Novolog Mix 70/30 Vial) 28 units SQ BIDAC [facility] Last Admin: 12/21/18 18:12 Dose: 28 unit Loratadine (Claritin -) 10 mg PO DAILY [facility] Last Admin: 12/21/18 12:34 Dose: 10 mg Midodrine (Proamatine -) 5 mg PO TID-MID [facility] Last Admin: 12/21/18 19:51 Dose: Not Given Morphine Sulfate (Morphine Sulfate) 4 mg IVPUSH Q4H PRN PRN Reason: PAIN LEVEL 7 - 10 Multivit/Ca Carb/B Cmplx/FA/Prenat (Nephro-Kelly -) 1 tablet PO DAILY [facility] Last Admin: 12/21/18 12:35 Dose: 1 tablet Oxycodone HCl (Roxicodone -) 5 mg PO Q4H PRN PRN Reason: PAIN LEVEL 6-10 Last Admin: 12/21/18 13:31 Dose: 5 mg Pantoprazole Sodium (Protonix -) 40 mg PO DAILY [facility] Last Admin: 12/21/18 12:35 Dose: 40 mg Sevelamer Carbonate (Renvela -) 1,600 mg PO TIDCM [facility] Last Admin: 12/21/18 18:12 Dose: 1,600 mg Simethicone (Mylicon -) 80 mg PO DAILY PRN PRN Reason: GAS - Objective Vital Signs: Vital Signs Temperature 98.6 F 12/21/18 12:00 Pulse Rate 76 12/21/18 17:00 Respiratory Rate 18 12/21/18 17:00 Blood Pressure 111/66 12/21/18 17:00 O2 Sat by Pulse Oximetry (%) 99 12/21/18 09:00 Constitutional: Yes: No Distress, Calm, Obese Cardiovascular: Yes: Regular Rate and Rhythm Respiratory: Yes: Regular, CTA Bilaterally Gastrointestinal: Yes: Normal Bowel Sounds, Soft Musculoskeletal: Yes: WNL Extremities: Yes: Other Neurological: Yes: Alert, Oriented Psychiatric: Yes: Alert, Oriented Labs: CBC, BMP 12/21/18 05:00 12/21/18 05:00 INR, PTT INR 1.11 (0.83-1.09) H 12/18/18 16:55 Assessment/Plan Problem List - Problems (1) Cellulitis of finger Code(s): L03.019 - CELLULITIS OF UNSPECIFIED FINGER Qualifiers: Laterality: right Qualified Code(s): L03.011 - Cellulitis of right finger (2) ESRD (end stage renal disease) Code(s): N18.6 - END STAGE RENAL DISEASE (3) Wet gangrene Code(s): I96 - GANGRENE, NOT ELSEWHERE CLASSIFIED (4) Anemia Code(s): D64.9 - ANEMIA, UNSPECIFIED Qualifiers: Anemia type: unspecified type Qualified Code(s): D64.9 - Anemia, unspecified (5) GERD (gastroesophageal reflux disease) Code(s): K21.9 - GASTRO-ESOPHAGEAL REFLUX DISEASE WITHOUT ESOPHAGITIS Qualifiers: Esophagitis presence: esophagitis presence not specified Qualified Code(s) : K21.9 - Gastro-esophageal reflux disease without esophagitis (6) HTN (hypertension) Code(s): I10 - ESSENTIAL (PRIMARY) HYPERTENSION Qualifiers: Hypertension type: essential hypertension Qualified Code(s): I10 - Essential (primary) hypertension (7) Peptic ulcer disease Code(s): K27.9 - PEPTIC ULC, SITE UNSP, UNSP AC OR CHR, W/O HEMOR OR PERF (8) S/P CABG (coronary artery bypass graft) Code(s): Z95.1 - PRESENCE OF AORTOCORONARY BYPASS GRAFT (9) Upper GI bleed Code(s): K92.2 - GASTROINTESTINAL HEMORRHAGE, UNSPECIFIED Assessment/Plan Rt 5th digit gangrene r/o OM s/p revision of amputation POD#1 Rt hand cellulitis Transient hypotension Uncontrolled DM ESRD on HD CAD s/p CABG PUD s/p Rt 3rd digit/partial Lt 5th digit amputations plan continue abx await for hand await for cx reports rest as per the team
--- NOTE | 2018-12-21 21:33 | PN ---
Progress Note (short form) - Note Progress Note: 58 year old man with ESRD , type 2 D/M, HTN, HLD and PVD,admitted with infected right 4th and 5th digit stumps. Patient is feeling better but still with tachycardia He denies any chest pain Vitals Vital Signs Period Temp Pulse Resp BP Sys/Harris Pulse Ox Last 24 Hr 98 F-98.6 F 64-122 18-22 111-153/47-86 99 Vital Signs (72 hours) 12/19/18 12/19/18 12/19/18 00:23 02:00 03:00 Temperature 98.5 F 98.3 F 97.8 F Pulse Rate 91 H 92 H Pulse Rate [ 80 80 Right] Respiratory 18 17 18 Rate Blood Pressure 123/67 146/47 L Blood Pressure 137/77 127/70 [Left] O2 Sat by Pulse 95 96 Oximetry (%) 12/19/18 12/19/18 12/19/18 03:23 05:58 09:00 Temperature 97.2 F L Pulse Rate 88 Pulse Rate [ Right] Respiratory 18 20 Rate Blood Pressure 104/63 Blood Pressure [Left] O2 Sat by Pulse 100 96 Oximetry (%) 12/19/18 12/19/18 12/19/18 11:00 13:35 13:40 Temperature 98.3 F 98.5 F Pulse Rate 76 89 84 Pulse Rate [ Right] Respiratory 19 18 18 Rate Blood Pressure 112/49 L 111/53 L 114/60 Blood Pressure [Left] O2 Sat by Pulse Oximetry (%) 12/19/18 12/19/18 12/19/18 14:00 14:10 14:40 Temperature 98.6 F Pulse Rate 90 90 80 Pulse Rate [ Right] Respiratory 18 18 18 Rate Blood Pressure 126/66 101/56 L 107/54 L Blood Pressure [Left] O2 Sat by Pulse Oximetry (%) 12/19/18 12/19/18 12/19/18 15:10 15:40 16:10 Temperature Pulse Rate 80 80 77 Pulse Rate [ Right] Respiratory 18 18 18 Rate Blood Pressure 96/49 L 90/42 L 97/51 L Blood Pressure [Left] O2 Sat by Pulse Oximetry (%) 12/19/18 12/19/18 12/19/18 16:40 16:45 18:30 Temperature 97.8 F Pulse Rate 92 H 91 H 78 Pulse Rate [ Right] Respiratory 18 18 18 Rate Blood Pressure 96/54 L 119/70 109/57 L Blood Pressure [Left] O2 Sat by Pulse Oximetry (%) 12/19/18 12/19/18 12/19/18 20:30 23:00 23:18 Temperature 98.1 F 98.4 F 99.2 F Pulse Rate 76 71 132 H Pulse Rate [ Right] Respiratory 17 30 H 18 Rate Blood Pressure 111/52 L 149/57 L 131/72 Blood Pressure [Left] O2 Sat by Pulse 100 Oximetry (%) 12/19/18 12/19/18 12/20/18 23:35 23:50 00:05 Temperature Pulse Rate 133 H 130 H 88 Pulse Rate [ Right] Respiratory 18 18 18 Rate Blood Pressure 145/79 123/71 115/56 L Blood Pressure [Left] O2 Sat by Pulse 96 99 96 Oximetry (%) 12/20/18 12/20/18 12/20/18 00:20 00:35 00:50 Temperature Pulse Rate 81 91 H 92 H Pulse Rate [ Right] Respiratory 18 18 18 Rate Blood Pressure 115/53 L 124/61 114/70 Blood Pressure [Left] O2 Sat by Pulse 100 100 100 Oximetry (%) 12/20/18 12/20/18 12/20/18 01:05 01:20 01:35 Temperature Pulse Rate 93 H 90 89 Pulse Rate [ Right] Respiratory 18 18 18 Rate Blood Pressure 129/58 L 123/51 L 121/56 L Blood Pressure [Left] O2 Sat by Pulse 100 100 100 Oximetry (%) 12/20/18 12/20/18 12/20/18 01:50 02:05 03:37 Temperature 99.3 F Pulse Rate 87 89 Pulse Rate [ Right] Respiratory 18 18 18 Rate Blood Pressure 126/55 L 122/53 L Blood Pressure [Left] O2 Sat by Pulse 100 100 100 Oximetry (%) 12/20/18 12/20/18 12/20/18 04:00 05:21 09:57 Temperature 98.4 F 98.7 F Pulse Rate 86 85 Pulse Rate [ Right] Respiratory 20 15 17 Rate Blood Pressure 112/54 L 120/63 125/65 Blood Pressure [Left] O2 Sat by Pulse Oximetry (%) 12/20/18 12/20/18 12/20/18 10:15 14:50 18:26 Temperature 98.4 F 98.5 F Pulse Rate 83 84 Pulse Rate [ Right] Respiratory 17 16 Rate Blood Pressure 131/89 129/61 Blood Pressure [Left] O2 Sat by Pulse 99 Oximetry (%) 12/20/18 12/21/18 12/21/18 19:25 00:00 04:00 Temperature 98.3 F 98.6 F Pulse Rate 72 64 Pulse Rate [ Right] Respiratory 16 19 19 Rate Blood Pressure 118/86 153/47 L Blood Pressure [Left] O2 Sat by Pulse 99 Oximetry (%) 12/21/18 12/21/18 12/21/18 08:00 09:00 12:00 Temperature 98 F 98.6 F Pulse Rate 96 H 70 Pulse Rate [ Right] Respiratory 18 18 Rate Blood Pressure 138/82 125/63 Blood Pressure [Left] O2 Sat by Pulse 99 Oximetry (%) 12/21/18 12/21/18 17:00 20:30 Temperature 98.4 F Pulse Rate 76 122 H Pulse Rate [ Right] Respiratory 18 22 H Rate Blood Pressure 111/66 132/77 Blood Pressure [Left] O2 Sat by Pulse Oximetry (%) Lungs; coarse breath sound bilat Heart: S1 S2 tachy Abd: Distended, soft, non-tender Ext: Trace bipedal edema Labs; CBC,CMP WBC 6.8 K/mm3 (4.0-10.0) 12/21/18 05:00 RBC 2.98 M/mm3 (4.00-5.60) L 12/21/18 05:00 Hgb 8.9 GM/dL (11.7-16.9) L 12/21/18 05:00 Hct 27.1 % (35.4-49) L 12/21/18 05:00 MCV 91.1 fl (80-96) 12/21/18 05:00 MCH 30.0 pg (25.7-33.7) 12/21/18 05:00 MCHC 33.0 g/dl (32.0-35.9) 12/21/18 05:00 RDW 15.6 % (11.9-15.9) 12/21/18 05:00 Plt Count 191 K/MM3 (134-434) 12/21/18 05:00 MPV 8.8 fl (7.5-11.1) 12/21/18 05:00 Absolute Neuts (auto) 4.5 K/mm3 (1.5-8.0) 12/21/18 05:00 Neutrophils % 66.1 % (42.8-82.8) 12/21/18 05:00 Lymphocytes % 17.6 % (8-40) 12/21/18 05:00 Monocytes % 14.0 % (3.8-10.2) H 12/21/18 05:00 Eosinophils % 1.9 % (0-4.5) 12/21/18 05:00 Basophils % 0.4 % (0-2.0) 12/21/18 05:00 Nucleated RBC % 0 % (0-0) 12/21/18 05:00 ESR 108 mm/hr (0-20) H 12/18/18 16:55 Sodium 137 mmol/L (136-145) 12/21/18 05:00 Potassium 4.0 mmol/L (3.5-5.1) 12/21/18 05:00 Chloride 99 mmol/L (98-107) 12/21/18 05:00 Carbon Dioxide 27 mmol/L (21-32) 12/21/18 05:00 Anion Gap 12 MMOL/L (8-16) 12/21/18 05:00 BUN 58.3 mg/dL (7-18) H 12/21/18 05:00 Creatinine 8.4 mg/dL (0.55-1.3) H* 12/21/18 05:00 Est GFR (CKD-EPI)AfAm 7.25 12/21/18 05:00 Est GFR (CKD-EPI)NonAf 6.26 12/21/18 05:00 POC Glucometer 235 UNITS (80-120) 12/21/18 17:03 Random Glucose 170 mg/dL (74-106) H 12/21/18 05:00 Calcium 7.9 mg/dL (8.5-10.1) L 12/21/18 05:00 Magnesium 2.4 mg/dL (1.8-2.4) 12/20/18 09:32 Total Bilirubin 0.4 mg/dL (0.2-1) 12/21/18 05:00 AST 38 U/L (15-37) H 12/21/18 05:00 ALT 33 U/L (13-61) 12/21/18 05:00 Alkaline Phosphatase 152 U/L (45-117) H 12/21/18 05:00 C-Reactive Protein 13.0 MG/DL (0.00-0.3) H 12/18/18 16:55 Total Protein 6.8 g/dl (6.4-8.2) 12/21/18 05:00 Albumin 2.9 g/dl (3.4-5.0) L 12/21/18 05:00 A/P: 58 yearold man with end stage renal disease admitted with infected stump. Patient is tentatively scheduled for hemodialysis in a.m. Will give midodrine 5-10 mg p.o prior to hemodialysis Will follow. Problem List - Problems (1) Cellulitis of finger Code(s): L03.019 - CELLULITIS OF UNSPECIFIED FINGER Qualifiers: Laterality: right Qualified Code(s): L03.011 - Cellulitis of right finger (2) ESRD (end stage renal disease) Code(s): N18.6 - END STAGE RENAL DISEASE (3) Anemia Code(s): D64.9 - ANEMIA, UNSPECIFIED Qualifiers: Anemia type: unspecified type Qualified Code(s): D64.9 - Anemia, unspecified
[2018-12-21] MEDS ORDERED: PIPERACILLIN/TAZOBACTAM 3.375 GM VIAL IVPB ONE (21:39)
[2018-12-21] MEDS: PIPERACILLIN/TAZOB 3.375 GM 3.375 GM in DEXTROSE 5%-WATER - 50 ML IVPB SCH (21:50)
[2018-12-21] MEDS: ATORVASTATIN CA 40 MG TABLET (FP) PO SCH (21:51)
[2018-12-22] MEDS ORDERED: DEXTROSE 5%-WATER - 50 ML IVPB ONE ×3 (01:44→17:37)
[2018-12-22] MEDS ORDERED: PIPERACILLIN/TAZOBACTAM 3.375 GM VIAL IVPB ONE ×3 (01:44→17:37)
[2018-12-22] MEDS: CLINDAMYCIN 600MG PREMIX IVPB 600 MG/50 ML BAG IVPB SCH ×3 (01:52→17:39)
[2018-12-22] MEDS: PIPERACILLIN/TAZOB 3.375 GM 3.375 GM in DEXTROSE 5%-WATER - 50 ML IVPB SCH ×3 (01:53→17:39)
[2018-12-22] MEDS: INSULIN (NOVOLOG MIX 70/30) 100 UNITS/ML MDV SQ SCH ×2 (06:46→18:11)
[2018-12-22] MEDS: INSULIN SLIDING SCALE (NOVOLOG) 1 VIAL SQ SCH ×4 (06:47→22:10)
[2018-12-22] MEDS: ALBUTEROL SO4 2.5/IPRATROPIUM 0.5 INH SOL 3 ML VIAL.NEB. NEB SCH ×3 (07:50→21:10)
--- NOTE | 2018-12-22 10:38 | EKG ---
Test Reason : Blood Pressure : / mmHG Vent. Rate : 119 BPM Atrial Rate : 119 BPM P-R Int : 194 ms QRS Dur : 106 ms QT Int : 368 ms P-R-T Axes : -14 038 038 degrees QTc Int : 517 ms SINUS TACHYCARDIA OTHERWISE NORMAL ECG WHEN COMPARED WITH ECG OF 18-DEC-2018 16:52, INCOMPLETE RIGHT BUNDLE BRANCH BLOCK IS NO LONGER PRESENT Confirmed by Eladio Landry MD ([id number]) on 12/22/2018 10:38:30 AM Referred By: Confirmed By:Eladio Landry MD
--- NOTE | 2018-12-22 11:11 | PN ---
Progress Note (short form) - Note Progress Note: s: no chest pain, palps, dizziness. stable dyspnea, getting HD this morning Current Medications Acetaminophen (Tylenol -) 650 mg PO Q6H PRN PRN Reason: PAIN LEVEL 1-5 Albuterol/Ipratropium (Duoneb -) 1 amp NEB RTID [facility] Last Admin: 12/21/18 20:50 Dose: 1 amp Atorvastatin Calcium (Lipitor -) 40 mg PO HS [facility] Last Admin: 12/21/18 21:51 Dose: 40 mg Calcium Carbonate (Calcium Carbonate -) 650 mg PO DAILY PRN PRN Reason: INDIGESTION Heparin Sodium (Porcine) (Heparin -) 5,000 unit SQ BID [facility] Last Admin: 12/21/18 21:50 Dose: 5,000 unit Clindamycin Phosphate (Cleocin 600 Mg Premix Ivpb -) 600 mg in 50 mls @ 100 mls /hr IVPB Q8H-IV [facility]; Protocol Last Admin: 12/22/18 01:52 Dose: 100 mls/hr Piperacillin Sod/Tazobactam (Sod 3.375 gm/ Dextrose) 50 mls @ 100 mls/hr IVPB Q8H-IV [facility]; Protocol Last Admin: 12/22/18 01:53 Dose: 100 mls/hr Ibuprofen (Motrin -) 600 mg PO Q6H PRN PRN Reason: PAIN LEVEL 1-5 Insulin Aspart (Novolog Vial Sliding Scale -) 1 vial SQ ACHS [facility]; Protocol Last Admin: 12/22/18 06:47 Dose: 4 units Insulin Aspart (Novolog Mix 70/30 Vial) 28 units SQ BIDAC [facility] Last Admin: 12/22/18 06:46 Dose: 28 unit Loratadine (Claritin -) 10 mg PO DAILY [facility] Last Admin: 12/21/18 12:34 Dose: 10 mg Midodrine (Proamatine -) 5 mg PO TID-MID [facility] Last Admin: 12/21/18 19:51 Dose: Not Given Morphine Sulfate (Morphine Sulfate) 4 mg IVPUSH Q4H PRN PRN Reason: PAIN LEVEL 7 - 10 Multivit/Ca Carb/B Cmplx/FA/Prenat (Nephro-Kelly -) 1 tablet PO DAILY [facility] Last Admin: 12/21/18 12:35 Dose: 1 tablet Oxycodone HCl (Roxicodone -) 5 mg PO Q4H PRN PRN Reason: PAIN LEVEL 6-10 Last Admin: 12/21/18 13:31 Dose: 5 mg Pantoprazole Sodium (Protonix -) 40 mg PO DAILY [facility] Last Admin: 12/21/18 12:35 Dose: 40 mg Sevelamer Carbonate (Renvela -) 1,600 mg PO TIDCM [facility] Last Admin: 12/21/18 18:12 Dose: 1,600 mg Simethicone (Mylicon -) 80 mg PO DAILY PRN PRN Reason: GAS Vital Signs Period Temp Pulse Resp BP Sys/Harris Pulse Ox Last 24 Hr 98.2 F-99.0 F 70-122 16-22 99-132/52-82 100 Constitutional: Yes: No Distress, Calm Eyes: Yes: Conjunctiva Clear, EOM Intact HENT: Yes: Atraumatic, Normocephalic Neck: Yes: Supple, Trachea Midline Respiratory: Yes: Regular, CTA Bilaterally Gastrointestinal: Yes: Normal Bowel Sounds, Soft Cardiovascular: Yes: Regular Rate and Rhythm PMI: Non-Displaced Heart Sounds: Yes: S1, S2 Murmur: No: Systolic Murmur Musculoskeletal: No: Back Pain Extremities: No: Cold Edema: No Peripheral Pulses WNL: No Peripheral Pulses: 1+ Left Doralis Pedis, 1+ Right Dorsalis Pedis Integumentary: No: Jaundice Neurological: Yes: Alert, Oriented Psychiatric: No: Agitated Assessment/Plan tele: sinus, sinus tachycardia, brief SVT EKG: sinus, nl intervals, no ischemic changes 58M h/o ESRD on HD, DM, PUD, CAD s/p CABG 08/2017 and prior stents, multiple prior amputations p/w finger wounds, s/p amputation here with tachycardia, hypotension post op Tachycardia, hypotension - hypotension improving, remains with sinus tachycardia - tachycardia may be multifactorial - post op pain, infection, anemia - echo pending - continue midodrine - monitoring on tele CAD s/p CABG - cont statin, restart aspirin when able per surgery s/p finger amputations - manage per surgery DM - manage per primary
[2018-12-22] MEDS: SEVELAMER CARBONATE 800 MG TAB (FP) PO SCH ×3 (11:23→17:39)
[2018-12-22] MEDS: HEPARIN NA (PORCINE) 5,000 UNITS/ML 1ML VIAL SQ SCH ×2 (11:23→22:03)
[2018-12-22] MEDS: VITAMIN B COMP W-C 1 EA TABLET PO SCH (11:23)
[2018-12-22] MEDS: LORATADINE 10 MG TABLET PO SCH (11:23)
--- NOTE | 2018-12-22 11:23 | PN ---
Progress Note (short form) - Note Progress Note: pt in tele ICU currently undergoing dialysis feels better today trachycardic Vital Signs - 24 hr 12/21/18 12/21/18 12/21/18 12:00 17:00 20:30 Temperature 98.6 F 98.4 F Pulse Rate 70 76 122 H Respiratory 18 18 22 H Rate Blood Pressure 125/63 111/66 132/77 O2 Sat by Pulse Oximetry (%) 12/21/18 12/22/18 12/22/18 21:00 02:05 07:00 Temperature 99.0 F 98.2 F 98.4 F Pulse Rate 113 H 110 H Respiratory 22 H 16 18 Rate Blood Pressure 122/72 122/60 O2 Sat by Pulse 100 Oximetry (%) 12/22/18 12/22/18 12/22/18 07:15 07:45 08:15 Temperature Pulse Rate 119 H 118 H 118 H Respiratory 18 18 18 Rate Blood Pressure 116/68 120/52 L 123/82 O2 Sat by Pulse Oximetry (%) 12/22/18 12/22/18 12/22/18 08:45 09:15 09:45 Temperature Pulse Rate 118 H 119 H 118 H Respiratory 18 18 18 Rate Blood Pressure 120/62 123/65 118/55 L O2 Sat by Pulse Oximetry (%) 12/22/18 12/22/18 10:15 10:32 Temperature Pulse Rate 120 H 118 H Respiratory 18 18 Rate Blood Pressure 99/61 102/62 O2 Sat by Pulse Oximetry (%) Current Medications Generic Name Dose Route Start Last Admin Trade Name Freq PRN Reason Stop Dose Admin Acetaminophen 650 mg 12/20/18 08:23 Tylenol - PO Q6H PRN PAIN LEVEL 1-5 Albuterol/Ipratropium 1 amp 12/20/18 14:00 12/22/18 07:50 Duoneb - NEB 1 amp RTID [facility] Administration Atorvastatin Calcium 40 mg 12/20/18 22:00 12/21/18 21:51 Lipitor - PO 40 mg HS [facility] Administration Calcium Carbonate 650 mg 12/20/18 07:30 Calcium Carbonate - PO DAILY PRN INDIGESTION Heparin Sodium (Porcine) 5,000 unit 12/20/18 10:00 12/21/18 21:50 Heparin - SQ 5,000 unit BID [facility] Administration Clindamycin Phosphate 600 mg in 50 mls @ 100 mls/hr 12/20/18 10:00 12/22/18 01:52 Cleocin 600 Mg Premix Ivpb - IVPB 100 mls/hr Q8H-IV [facility] Administration Protocol Piperacillin Sod/Tazobactam 50 mls @ 100 mls/hr 12/21/18 21:30 12/22/18 01:53 Sod 3.375 gm/ Dextrose IVPB 100 mls/hr Q8H-IV [facility] Administration Protocol Ibuprofen 600 mg 12/20/18 08:23 Motrin - PO Q6H PRN PAIN LEVEL 1-5 Insulin Aspart 1 vial 12/20/18 11:00 12/22/18 06:47 Novolog Vial Sliding Scale - SQ 4 units ACHS [facility] Administration Protocol Insulin Aspart 28 units 12/21/18 10:03 12/22/18 06:46 Novolog Mix 70/30 Vial SQ 28 unit BIDAC [facility] Administration Loratadine 10 mg 12/20/18 10:00 12/21/18 12:34 Claritin - PO 10 mg DAILY [facility] Administration Midodrine 5 mg 12/20/18 10:00 12/21/18 19:51 Proamatine - PO Not Given TID-MID [facility] Morphine Sulfate 4 mg 12/20/18 08:23 Morphine Sulfate IVPUSH Q4H PRN PAIN LEVEL 7 - 10 Multivit/Ca Carb/B Cmplx/FA/Prenat 1 tablet 12/20/18 10:00 12/21/18 12:35 Nephro-Kelly - PO 1 tablet DAILY [facility] Administration Oxycodone HCl 5 mg 12/20/18 10:04 12/21/18 13:31 Roxicodone - PO 5 mg Q4H PRN Administration PAIN LEVEL 6-10 Pantoprazole Sodium 40 mg 12/20/18 10:00 12/21/18 12:35 Protonix - PO 40 mg DAILY [facility] Administration Sevelamer Carbonate 1,600 mg 12/20/18 08:00 12/21/18 18:12 Renvela - PO 1,600 mg TIDCM [facility] Administration Simethicone 80 mg 12/20/18 07:30 Mylicon - PO DAILY PRN GAS Laboratory Results - last 24 hr 12/19/18 12/21/18 12/21/18 13:40 17:03 21:49 POC Glucometer 235 126 Hep Bs Antigen Negative Hep C Ab Diagnostic 0.2 12/22/18 06:45 POC Glucometer 227 Hep Bs Antigen Hep C Ab Diagnostic S1 S2 RRR- tachycardic Lungs clear Abd- soft, obese No edema Rt 5 th finger --dressing in place A/P ESRD on HD necrotic finger\ PAD -- s/p surgery -- pain control -- midodrine tid -- iv antibiotics - cardiology eval noted Problem List - Problems (1) Cellulitis of finger Code(s): L03.019 - CELLULITIS OF UNSPECIFIED FINGER Qualifiers: Laterality: right Qualified Code(s): L03.011 - Cellulitis of right finger (2) ESRD (end stage renal disease) Code(s): N18.6 - END STAGE RENAL DISEASE (3) Wet gangrene Code(s): I96 - GANGRENE, NOT ELSEWHERE CLASSIFIED (4) Anemia Code(s): D64.9 - ANEMIA, UNSPECIFIED Qualifiers: Anemia type: unspecified type Qualified Code(s): D64.9 - Anemia, unspecified (5) ESRD (end stage renal disease) on dialysis Code(s): N18.6 - END STAGE RENAL DISEASE; Z99.2 - DEPENDENCE ON RENAL DIALYSIS
[2018-12-22] MEDS: MIDODRINE HCL 5 MG TABLET PO SCH ×3 (11:24→17:40)
[2018-12-22] MEDS: IBUPROFEN 600 MG TABLET (FP) PO PRN (11:25)
[2018-12-22] MEDS: PANTOPRAZOLE 40 MG TABLET (FP) PO SCH (11:25)
[2018-12-22] MEDS: oxyCODONE HCL 5 MG TABLET PO PRN ×2 (11:26→20:25)
--- NOTE | 2018-12-22 13:11 | ECHO ---
Name: KIANNA MATHEWS Exam:Adult Echocardiogram Study Date: 12/22/2018 11:47 AM Age: 58 yrs Reason For Study: Tachycardia Height: 67 in Weight: 215 lb BSA: 2.1 m2 MMode/2D Measurements & Calculations IVSd: 1.0 cm ACS: 2.0 cm LVIDd: 3.6 cm LVIDs: 2.9 cm LVPWd: 1.4 cm EDV(Teich): 55.7 ml LVOT diam: 1.9 cm ESV(Teich): 33.3 ml Doppler Measurements & Calculations MV E max roberto: 142.0 cm/sec MV A max roberto: 55.4 cm/sec MV dec slope: 187.2 cm/sec2 MV E/A: 2.6 Ao V2 max: 116.7 cm/sec LV V1 max P.5 mmHg Ao max P.5 mmHg LV V1 mean P.5 mmHg Ao V2 mean: 80.3 cm/sec LV V1 max: 79.7 cm/sec Ao mean P.9 mmHg LV V1 mean: 58.6 cm/sec Ao V2 VTI: 19.8 cm LV V1 VTI: 15.9 cm CHANTAL(I,D): 2.3 cm2 CHANTAL(V,D): 2.0 cm2 SV(LVOT): 46.3 ml Med Peak E' Roberto: 4.1 cm/sec Med E/e': 34.3 Lat Peak E' Roberto: 8.1 cm/sec Lat E/e': 17.6 Procedure A complete two-dimensional transthoracic echocardiogram was performed (2D, M-mode, Doppler and color flow Doppler). The study was technically difficult with many images being suboptimal in quality. Left Ventricle The left ventricle is grossly normal size. There is normal left ventricular wall thickness. Left vent ricular systolic function is grossly normal. Ejection Fraction = 55%. Regional wall motion abnormalities nicholas ot be excluded due to limited visualization. Right Ventricle The right ventricle is normal in size and function. Atria Normal left and right atrial size and function. Mitral Valve There is mild to moderate mitral valve thickening. There is trace mitral regurgitation. Tricuspid Valve The tricuspid valve is not well visualized. There was insufficient TR detected to calculate RV systol ic pressure. Aortic Valve The aortic valve is not well visualized. Pulmonic Valve The pulmonic valve is not well visualized. Great Vessels The aortic root is normal size. Pericardium/Pleura There is no pericardial effusion. There is no pleural effusion. Interpretation Summary The study was technically difficult with many images being suboptimal in quality. The left ventricle is grossly normal size. Left ventricular systolic function is grossly normal. Regional wall motion abnormalities cannot be excluded due to limited visualization. Ejection Fraction = 55%. The right ventricle is normal in size and function. There is mild to moderate mitral valve thickening. MD Eladio Landry 12/22/2018 01:10 PM
--- NOTE | 2018-12-22 13:45 | PN ---
Progress Note, Physician History of Present Illness: willian no issues - Current Medication List Current Medications: Active Medications Acetaminophen (Tylenol -) 650 mg PO Q6H PRN PRN Reason: PAIN LEVEL 1-5 Albuterol/Ipratropium (Duoneb -) 1 amp NEB RTID [facility] Last Admin: 12/22/18 07:50 Dose: 1 amp Atorvastatin Calcium (Lipitor -) 40 mg PO HS [facility] Last Admin: 12/21/18 21:51 Dose: 40 mg Calcium Carbonate (Calcium Carbonate -) 650 mg PO DAILY PRN PRN Reason: INDIGESTION Heparin Sodium (Porcine) (Heparin -) 5,000 unit SQ BID [facility] Last Admin: 12/22/18 11:23 Dose: 5,000 unit Clindamycin Phosphate (Cleocin 600 Mg Premix Ivpb -) 600 mg in 50 mls @ 100 mls /hr IVPB Q8H-IV [facility]; Protocol Last Admin: 12/22/18 11:23 Dose: 100 mls/hr Piperacillin Sod/Tazobactam (Sod 3.375 gm/ Dextrose) 50 mls @ 100 mls/hr IVPB Q8H-IV [facility]; Protocol Last Admin: 12/22/18 11:25 Dose: 100 mls/hr Ibuprofen (Motrin -) 600 mg PO Q6H PRN PRN Reason: PAIN LEVEL 1-5 Last Admin: 12/22/18 11:25 Dose: 600 mg Insulin Aspart (Novolog Vial Sliding Scale -) 1 vial SQ ACHS [facility]; Protocol Last Admin: 12/22/18 13:28 Dose: Not Given Insulin Aspart (Novolog Mix 70/30 Vial) 28 units SQ BIDAC [facility] Last Admin: 12/22/18 06:46 Dose: 28 unit Loratadine (Claritin -) 10 mg PO DAILY [facility] Last Admin: 12/22/18 11:23 Dose: 10 mg Midodrine (Proamatine -) 5 mg PO TID-MID [facility] Last Admin: 12/22/18 13:29 Dose: 5 mg Morphine Sulfate (Morphine Sulfate) 4 mg IVPUSH Q4H PRN PRN Reason: PAIN LEVEL 7 - 10 Multivit/Ca Carb/B Cmplx/FA/Prenat (Nephro-Kelly -) 1 tablet PO DAILY [facility] Last Admin: 12/22/18 11:23 Dose: 1 tablet Oxycodone HCl (Roxicodone -) 5 mg PO Q4H PRN PRN Reason: PAIN LEVEL 6-10 Last Admin: 12/22/18 11:26 Dose: 5 mg Pantoprazole Sodium (Protonix -) 40 mg PO DAILY [facility] Last Admin: 12/22/18 11:25 Dose: 40 mg Sevelamer Carbonate (Renvela -) 1,600 mg PO TIDCM [facility] Last Admin: 12/22/18 11:28 Dose: 1,600 mg Simethicone (Mylicon -) 80 mg PO DAILY PRN PRN Reason: GAS - Objective Vital Signs: Vital Signs Temperature 98.4 F 12/22/18 07:00 Pulse Rate 118 H 12/22/18 10:32 Respiratory Rate 18 12/22/18 10:32 Blood Pressure 102/62 12/22/18 10:32 O2 Sat by Pulse Oximetry (%) 100 12/21/18 21:00 Constitutional: Yes: No Distress, Calm Cardiovascular: Yes: S1, S2 Respiratory: Yes: Regular, CTA Bilaterally Gastrointestinal: Yes: Normal Bowel Sounds, Soft Musculoskeletal: Yes: WNL Extremities: Yes: Other Wound/Incision: Yes: Dressing Dry and Intact Neurological: Yes: Alert, Oriented Psychiatric: Yes: Alert, Oriented Labs: CBC, BMP 12/21/18 05:00 12/21/18 05:00 INR, PTT INR 1.11 (0.83-1.09) H 12/18/18 16:55 Assessment/Plan Problem List - Problems (1) Cellulitis of finger Code(s): L03.019 - CELLULITIS OF UNSPECIFIED FINGER Qualifiers: Laterality: right Qualified Code(s): L03.011 - Cellulitis of right finger (2) ESRD (end stage renal disease) Code(s): N18.6 - END STAGE RENAL DISEASE (3) Wet gangrene Code(s): I96 - GANGRENE, NOT ELSEWHERE CLASSIFIED (4) Anemia Code(s): D64.9 - ANEMIA, UNSPECIFIED Qualifiers: Anemia type: unspecified type Qualified Code(s): D64.9 - Anemia, unspecified (5) GERD (gastroesophageal reflux disease) Code(s): K21.9 - GASTRO-ESOPHAGEAL REFLUX DISEASE WITHOUT ESOPHAGITIS Qualifiers: Esophagitis presence: esophagitis presence not specified Qualified Code(s) : K21.9 - Gastro-esophageal reflux disease without esophagitis (6) HTN (hypertension) Code(s): I10 - ESSENTIAL (PRIMARY) HYPERTENSION Qualifiers: Hypertension type: essential hypertension Qualified Code(s): I10 - Essential (primary) hypertension (7) Peptic ulcer disease Code(s): K27.9 - PEPTIC ULC, SITE UNSP, UNSP AC OR CHR, W/O HEMOR OR PERF (8) S/P CABG (coronary artery bypass graft) Code(s): Z95.1 - PRESENCE OF AORTOCORONARY BYPASS GRAFT (9) Upper GI bleed Code(s): K92.2 - GASTROINTESTINAL HEMORRHAGE, UNSPECIFIED Assessment/Plan Rt 5th digit gangrene r/o OM s/p revision of amputation POD#1 Rt hand cellulitis Transient hypotension Uncontrolled DM ESRD on HD CAD s/p CABG PUD s/p Rt 3rd digit/partial Lt 5th digit amputations plan continue abx await for hand await for cx reports rest as per the team
--- NOTE | 2018-12-22 17:05 | PATH ---
Surgical Pathology Report Patient Name: KIANNA MATHEWS [facility]. Rec. #: [id number] /Age/Gender: 1960 (Age: 58) / M Account: [id number] Location: [address] [place] [address]/[facility] Taken: 12/19/2018 Received: 12/21/2018 Reported: 12/22/2018 Physicians: Shira Mckeon M.D. Specimen(s) Received ULNER DIGIT RIGHT HAND Clinical History Wet gangrene right hand ulnar digit Final Diagnosis ULNAR DIGIT RIGHT HAND, AMPUTATION: AMPUTATED DIGIT SHOWING GANGRENOUS NECROSIS, SEVERE ACUTE INFLAMMATION WITH ABSCESS FORMATION. BONE WITH ACUTE OSTEOMYELITIS, INVOLVING THE BONE MARGIN. VIABLE SKIN AND SOFT TISSUE MARGIN. Electronically Signed Sal De La O M.D. Gross Description Received in formalin labeled "ulnar digit right hand," is a 3.2 x 2.2 x 2.0 cm digit amputation. The entire digit displays a lopes-green, gangrenous lesion involving the underlying bone. The lesion appears to involve the bone margin. Sap Fico Architect sections are submitted in 2 cassettes as follows: 1-skin, soft tissue and bone margin, following decalcification; 2-lesion with underlying bone, following decalcification. /12/21/201812/21/2018
--- NOTE | 2018-12-22 20:29 | PN ---
Progress Note (short form) - Note Progress Note: 58 year old man with end stage renal disease, type 2 diabetes mellitus and peripheral vascular disease admitted with infected right finger stump Patient is feeling better today. Out of bed to chair in the company of his spouse Vitals Vital Signs (72 hours) 12/19/18 12/19/18 12/19/18 20:30 23:00 23:18 Temperature 98.1 F 98.4 F 99.2 F Pulse Rate 76 71 132 H Respiratory 17 30 H 18 Rate Blood Pressure 111/52 L 149/57 L 131/72 O2 Sat by Pulse 100 Oximetry (%) 12/19/18 12/19/18 12/20/18 23:35 23:50 00:05 Temperature Pulse Rate 133 H 130 H 88 Respiratory 18 18 18 Rate Blood Pressure 145/79 123/71 115/56 L O2 Sat by Pulse 96 99 96 Oximetry (%) 12/20/18 12/20/18 12/20/18 00:20 00:35 00:50 Temperature Pulse Rate 81 91 H 92 H Respiratory 18 18 18 Rate Blood Pressure 115/53 L 124/61 114/70 O2 Sat by Pulse 100 100 100 Oximetry (%) 12/20/18 12/20/18 12/20/18 01:05 01:20 01:35 Temperature Pulse Rate 93 H 90 89 Respiratory 18 18 18 Rate Blood Pressure 129/58 L 123/51 L 121/56 L O2 Sat by Pulse 100 100 100 Oximetry (%) 12/20/18 12/20/18 12/20/18 01:50 02:05 03:37 Temperature 99.3 F Pulse Rate 87 89 Respiratory 18 18 18 Rate Blood Pressure 126/55 L 122/53 L O2 Sat by Pulse 100 100 100 Oximetry (%) 12/20/18 12/20/18 12/20/18 04:00 05:21 09:57 Temperature 98.4 F 98.7 F Pulse Rate 86 85 Respiratory 20 15 17 Rate Blood Pressure 112/54 L 120/63 125/65 O2 Sat by Pulse Oximetry (%) 12/20/18 12/20/18 12/20/18 10:15 14:50 18:26 Temperature 98.4 F 98.5 F Pulse Rate 83 84 Respiratory 17 16 Rate Blood Pressure 131/89 129/61 O2 Sat by Pulse 99 Oximetry (%) 06/12/21/18 12/21/18 19:25 00:00 04:00 Temperature 98.3 F 98.6 F Pulse Rate 72 64 Respiratory 16 19 19 Rate Blood Pressure 118/86 153/47 L O2 Sat by Pulse 99 Oximetry (%) 12/21/18 12/21/18 12/21/18 08:00 09:00 12:00 Temperature 98 F 98.6 F Pulse Rate 96 H 70 Respiratory 18 18 Rate Blood Pressure 138/82 125/63 O2 Sat by Pulse 99 Oximetry (%) 12/21/18 12/21/18 12/21/18 17:00 20:30 21:00 Temperature 98.4 F 99.0 F Pulse Rate 76 122 H Respiratory 18 22 H 22 H Rate Blood Pressure 111/66 132/77 O2 Sat by Pulse 100 Oximetry (%) 12/22/18 12/22/18 12/22/18 02:05 07:00 07:15 Temperature 98.2 F 98.4 F Pulse Rate 113 H 110 H 119 H Respiratory 16 18 18 Rate Blood Pressure 122/72 122/60 116/68 O2 Sat by Pulse Oximetry (%) 12/22/18 12/22/18 12/22/18 07:45 08:15 08:45 Temperature Pulse Rate 118 H 118 H 118 H Respiratory 18 18 18 Rate Blood Pressure 120/52 L 123/82 120/62 O2 Sat by Pulse Oximetry (%) 12/22/18 12/22/18 12/22/18 09:00 09:15 09:45 Temperature 98.3 F Pulse Rate 80 119 H 118 H Respiratory 16 18 18 Rate Blood Pressure 83/71 L 123/65 118/55 L O2 Sat by Pulse 100 Oximetry (%) 12/22/18 12/22/18 12/22/18 10:15 10:32 14:00 Temperature 98.7 F Pulse Rate 120 H 118 H 79 Respiratory 18 18 21 H Rate Blood Pressure 99/61 102/62 106/67 O2 Sat by Pulse Oximetry (%) 12/22/18 17:56 Temperature 97.4 F L Pulse Rate 64 Respiratory 17 Rate Blood Pressure 98/48 L O2 Sat by Pulse Oximetry (%) Lungs; clear to auscultation Heart: S1 S2 Regular, no gallop Abd: Full, soft, non-tender, bs normal Ext: Right hand with surgical dressing Access: positive bruit right arm AVF lABS: CBC,CMP WBC 6.8 K/mm3 (4.0-10.0) 12/21/18 05:00 RBC 2.98 M/mm3 (4.00-5.60) L 12/21/18 05:00 Hgb 8.9 GM/dL (11.7-16.9) L 12/21/18 05:00 Hct 27.1 % (35.4-49) L 12/21/18 05:00 MCV 91.1 fl (80-96) 12/21/18 05:00 MCH 30.0 pg (25.7-33.7) 12/21/18 05:00 MCHC 33.0 g/dl (32.0-35.9) 12/21/18 05:00 RDW 15.6 % (11.9-15.9) 12/21/18 05:00 Plt Count 191 K/MM3 (134-434) 12/21/18 05:00 MPV 8.8 fl (7.5-11.1) 12/21/18 05:00 Absolute Neuts (auto) 4.5 K/mm3 (1.5-8.0) 12/21/18 05:00 Neutrophils % 66.1 % (42.8-82.8) 12/21/18 05:00 Lymphocytes % 17.6 % (8-40) 12/21/18 05:00 Monocytes % 14.0 % (3.8-10.2) H 12/21/18 05:00 Eosinophils % 1.9 % (0-4.5) 12/21/18 05:00 Basophils % 0.4 % (0-2.0) 12/21/18 05:00 Nucleated RBC % 0 % (0-0) 12/21/18 05:00 ESR 108 mm/hr (0-20) H 12/18/18 16:55 Sodium 137 mmol/L (136-145) 12/21/18 05:00 Potassium 4.0 mmol/L (3.5-5.1) 12/21/18 05:00 Chloride 99 mmol/L (98-107) 12/21/18 05:00 Carbon Dioxide 27 mmol/L (21-32) 12/21/18 05:00 Anion Gap 12 MMOL/L (8-16) 12/21/18 05:00 BUN 58.3 mg/dL (7-18) H 12/21/18 05:00 Creatinine 8.4 mg/dL (0.55-1.3) H* 12/21/18 05:00 Est GFR (CKD-EPI)AfAm 7.25 12/21/18 05:00 Est GFR (CKD-EPI)NonAf 6.26 12/21/18 05:00 POC Glucometer 292 UNITS (80-120) 12/22/18 17:45 Random Glucose 170 mg/dL (74-106) H 12/21/18 05:00 Calcium 7.9 mg/dL (8.5-10.1) L 12/21/18 05:00 Magnesium 2.4 mg/dL (1.8-2.4) 12/20/18 09:32 Total Bilirubin 0.4 mg/dL (0.2-1) 12/21/18 05:00 AST 38 U/L (15-37) H 12/21/18 05:00 ALT 33 U/L (13-61) 12/21/18 05:00 Alkaline Phosphatase 152 U/L (45-117) H 12/21/18 05:00 C-Reactive Protein 13.0 MG/DL (0.00-0.3) H 12/18/18 16:55 Total Protein 6.8 g/dl (6.4-8.2) 12/21/18 05:00 Albumin 2.9 g/dl (3.4-5.0) L 12/21/18 05:00 TSH 1.51 uIU/ml (0.358-3.74) 12/22/18 11:40 Free T4 1.20 ng/dl (0.76-1.16) H 12/22/18 11:40 A/P:; 58 year old gentleman with ESRD admitted with gangrene Hemodialysis today as per the dialysis orders. Discharge planning as per te primary team. Problem List - Problems (1) Cellulitis of finger Code(s): L03.019 - CELLULITIS OF UNSPECIFIED FINGER Qualifiers: Laterality: right Qualified Code(s): L03.011 - Cellulitis of right finger (2) ESRD (end stage renal disease) Code(s): N18.6 - END STAGE RENAL DISEASE (3) Anemia Code(s): D64.9 - ANEMIA, UNSPECIFIED Qualifiers: Anemia type: unspecified type Qualified Code(s): D64.9 - Anemia, unspecified
[2018-12-22] MEDS: ATORVASTATIN CA 40 MG TABLET (FP) PO SCH (22:03)
[2018-12-23] MEDS: oxyCODONE HCL 5 MG TABLET PO PRN ×2 (00:30→08:33)
[2018-12-23] MEDS ORDERED: PIPERACILLIN/TAZOBACTAM 3.375 GM VIAL IVPB ONE ×3 (01:46→16:37)
[2018-12-23] MEDS ORDERED: DEXTROSE 5%-WATER - 50 ML IVPB ONE ×3 (01:46→16:37)
[2018-12-23] MEDS: CLINDAMYCIN 600MG PREMIX IVPB 600 MG/50 ML BAG IVPB SCH ×2 (01:57→10:38)
[2018-12-23] MEDS: PIPERACILLIN/TAZOB 3.375 GM 3.375 GM in DEXTROSE 5%-WATER - 50 ML IVPB SCH ×3 (02:37→17:34)
[2018-12-23 06:27] LABS: BASO % 0.5 % (0-2.0); HEMATOCRIT 26.2 % (35.4-49); HEMOGLOBIN 8.5 GM/dL (11.7-16.9); LYMPH % 15.3 % (8-40); MCH 29.9 pg (25.7-33.7); MCHC 32.3 g/dl (32.0-35.9); MEAN CELL VOLUME 92.6 fl (80-96); MONO % 12.4 % (3.8-10.2); NEUT % 68.8 % (42.8-82.8); PLATELET COUNT 188 K/MM3 (134-434); RBC 2.83 M/mm3 (4.00-5.60); RDW 15.6 % (11.9-15.9)
[2018-12-23] MEDS: INSULIN (NOVOLOG MIX 70/30) 100 UNITS/ML MDV SQ SCH ×2 (06:36→17:35)
[2018-12-23] MEDS: INSULIN SLIDING SCALE (NOVOLOG) 1 VIAL SQ SCH ×4 (06:37→21:27)
[2018-12-23 06:42] LABS: ALBUMIN 2.8 g/dl (3.4-5.0); BILIRUBIN,TOTAL 0.4 mg/dL (0.2-1); BLOOD UREA NITROGEN 48.2 mg/dL (7-18); CALCIUM 7.8 mg/dL (8.5-10.1); POTASSIUM 4.2 mmol/L (3.5-5.1); TOT PROT 6.7 g/dl (6.4-8.2)
[2018-12-23] MEDS ORDERED: PT OWN MED DRAWER 7, Y5N ONE (08:32)
[2018-12-23] MEDS: ALBUTEROL SO4 2.5/IPRATROPIUM 0.5 INH SOL 3 ML VIAL.NEB. NEB SCH ×3 (08:34→21:30)
[2018-12-23] MEDS: SEVELAMER CARBONATE 800 MG TAB (FP) PO SCH ×3 (08:35→17:34)
[2018-12-23] MEDS: LORATADINE 10 MG TABLET PO SCH (10:35)
[2018-12-23] MEDS: PANTOPRAZOLE 40 MG TABLET (FP) PO SCH (10:36)
[2018-12-23] MEDS: HEPARIN NA (PORCINE) 5,000 UNITS/ML 1ML VIAL SQ SCH ×2 (10:36→21:27)
[2018-12-23] MEDS: VITAMIN B COMP W-C 1 EA TABLET PO SCH (10:36)
--- NOTE | 2018-12-23 10:50 | PN ---
Progress Note (short form) - Note Progress Note: s: no chest pain, palps, dizziness, stable dyspnea. pain in hand improved Current Medications Acetaminophen (Tylenol -) 650 mg PO Q6H PRN PRN Reason: PAIN LEVEL 1-5 Albuterol/Ipratropium (Duoneb -) 1 amp NEB RTID [facility] Last Admin: 12/23/18 08:34 Dose: 1 amp Atorvastatin Calcium (Lipitor -) 40 mg PO HS [facility] Last Admin: 12/22/18 22:03 Dose: 40 mg Calcium Carbonate (Calcium Carbonate -) 650 mg PO DAILY PRN PRN Reason: INDIGESTION Heparin Sodium (Porcine) (Heparin -) 5,000 unit SQ BID [facility] Last Admin: 12/23/18 10:36 Dose: 5,000 unit Clindamycin Phosphate (Cleocin 600 Mg Premix Ivpb -) 600 mg in 50 mls @ 100 mls /hr IVPB Q8H-IV [facility]; Protocol Last Admin: 12/23/18 10:38 Dose: 100 mls/hr Piperacillin Sod/Tazobactam (Sod 3.375 gm/ Dextrose) 50 mls @ 100 mls/hr IVPB Q8H-IV [facility]; Protocol Last Admin: 12/23/18 10:37 Dose: 100 mls/hr Ibuprofen (Motrin -) 600 mg PO Q6H PRN PRN Reason: PAIN LEVEL 1-5 Last Admin: 12/22/18 11:25 Dose: 600 mg Insulin Aspart (Novolog Vial Sliding Scale -) 1 vial SQ ACHS [facility]; Protocol Last Admin: 12/23/18 06:37 Dose: 2 units Insulin Aspart (Novolog Mix 70/30 Vial) 28 units SQ BIDAC [facility] Last Admin: 12/23/18 06:36 Dose: 28 unit Loratadine (Claritin -) 10 mg PO DAILY [facility] Last Admin: 12/23/18 10:35 Dose: 10 mg Midodrine (Proamatine -) 5 mg PO TID-MID [facility] Last Admin: 12/22/18 17:40 Dose: 5 mg Multivit/Ca Carb/B Cmplx/FA/Prenat (Nephro-Kelly -) 1 tablet PO DAILY [facility] Last Admin: 12/23/18 10:36 Dose: 1 tablet Pantoprazole Sodium (Protonix -) 40 mg PO DAILY [facility] Last Admin: 12/23/18 10:36 Dose: 40 mg Sevelamer Carbonate (Renvela -) 1,600 mg PO TIDCM [facility] Last Admin: 12/23/18 08:35 Dose: 1,600 mg Simethicone (Mylicon -) 80 mg PO DAILY PRN PRN Reason: GAS Vital Signs Period Temp Pulse Resp BP Sys/Harris Pulse Ox Last 24 Hr 97.4 F-98.7 F 61-79 17-21 97-121/42-67 97 Constitutional: Yes: No Distress, Calm Eyes: Yes: Conjunctiva Clear, EOM Intact HENT: Yes: Atraumatic, Normocephalic Neck: Yes: Supple, Trachea Midline Respiratory: Yes: Regular, CTA Bilaterally Gastrointestinal: Yes: Normal Bowel Sounds, Soft Cardiovascular: Yes: Regular Rate and Rhythm PMI: Non-Displaced Heart Sounds: Yes: S1, S2 Murmur: No: Systolic Murmur Musculoskeletal: No: Back Pain Extremities: No: Cold Edema: No Peripheral Pulses WNL: No Peripheral Pulses: 1+ Left Doralis Pedis, 1+ Right Dorsalis Pedis Integumentary: No: Jaundice Neurological: Yes: Alert, Oriented Psychiatric: No: Agitated Assessment/Plan tele: sinus EKG: sinus, nl intervals, no ischemic changes 58M h/o ESRD on HD, DM, PUD, CAD s/p CABG 08/2017 and prior stents, multiple prior amputations p/w finger wounds, s/p amputation here with tachycardia, hypotension post op Tachycardia, hypotension - hypotension, tachycardia improved - tachycardia may have been multifactorial - post op pain, infection, anemia - echo nl LV function, nl RV - continue midodrine - can dc tele CAD s/p CABG - cont statin, restart aspirin when able per surgery s/p finger amputations - manage per surgery DM - manage per primary
--- NOTE | 2018-12-23 11:05 | PN ---
Progress Note (short form) - Note Progress Note: pt in tele ICU feels better today no chest pain no dizziness Vital Signs - 24 hr 12/22/18 12/22/18 12/22/18 14:00 17:56 21:00 Temperature 98.7 F 97.4 F L Pulse Rate 79 64 Respiratory 21 H 17 17 Rate Blood Pressure 106/67 98/48 L O2 Sat by Pulse 97 Oximetry (%) 12/22/18 12/23/18 12/23/18 21:56 01:00 06:00 Temperature 98 F 97.7 F 98 F Pulse Rate 68 61 66 Respiratory 18 18 18 Rate Blood Pressure 102/63 97/51 L 103/42 L O2 Sat by Pulse Oximetry (%) 12/23/18 08:00 Temperature Pulse Rate 63 Respiratory 17 Rate Blood Pressure 121/55 L O2 Sat by Pulse Oximetry (%) Current Medications Generic Name Dose Route Start Last Admin Trade Name Freq PRN Reason Stop Dose Admin Acetaminophen 650 mg 12/20/18 08:23 Tylenol - PO Q6H PRN PAIN LEVEL 1-5 Albuterol/Ipratropium 1 amp 12/20/18 14:00 12/23/18 08:34 Duoneb - NEB 1 amp RTID [facility] Administration Atorvastatin Calcium 40 mg 12/20/18 22:00 12/22/18 22:03 Lipitor - PO 40 mg HS [facility] Administration Calcium Carbonate 650 mg 12/20/18 07:30 Calcium Carbonate - PO DAILY PRN INDIGESTION Heparin Sodium (Porcine) 5,000 unit 12/20/18 10:00 12/23/18 10:36 Heparin - SQ 5,000 unit BID [facility] Administration Clindamycin Phosphate 600 mg in 50 mls @ 100 mls/hr 12/20/18 10:00 12/23/18 10:38 Cleocin 600 Mg Premix Ivpb - IVPB 100 mls/hr Q8H-IV [facility] Administration Protocol Piperacillin Sod/Tazobactam 50 mls @ 100 mls/hr 12/21/18 21:30 12/23/18 10:37 Sod 3.375 gm/ Dextrose IVPB 100 mls/hr Q8H-IV [facility] Administration Protocol Ibuprofen 600 mg 12/20/18 08:23 12/22/18 11:25 Motrin - PO 600 mg Q6H PRN Administration PAIN LEVEL 1-5 Insulin Aspart 1 vial 12/20/18 11:00 12/23/18 06:37 Novolog Vial Sliding Scale - SQ 2 units ACHS [facility] Administration Protocol Insulin Aspart 28 units 12/21/18 10:03 12/23/18 06:36 Novolog Mix 70/30 Vial SQ 28 unit BIDAC [facility] Administration Loratadine 10 mg 12/20/18 10:00 12/23/18 10:35 Claritin - PO 10 mg DAILY [facility] Administration Midodrine 5 mg 12/20/18 10:00 12/22/18 17:40 Proamatine - PO 5 mg TID-MID [facility] Administration Multivit/Ca Carb/B Cmplx/FA/Prenat 1 tablet 12/20/18 10:00 12/23/18 10:36 Nephro-Kelly - PO 1 tablet DAILY [facility] Administration Pantoprazole Sodium 40 mg 12/20/18 10:00 12/23/18 10:36 Protonix - PO 40 mg DAILY [facility] Administration Sevelamer Carbonate 1,600 mg 12/20/18 08:00 12/23/18 08:35 Renvela - PO 1,600 mg TIDCM [facility] Administration Simethicone 80 mg 12/20/18 07:30 Mylicon - PO DAILY PRN GAS Laboratory Results - last 24 hr 12/22/18 12/22/18 12/22/18 11:40 13:26 17:45 WBC RBC Hgb Hct MCV MCH MCHC RDW Plt Count MPV Absolute Neuts (auto) Neutrophils % Lymphocytes % Monocytes % Eosinophils % Basophils % Nucleated RBC % Sodium Potassium Chloride Carbon Dioxide Anion Gap BUN Creatinine Est GFR (CKD-EPI)AfAm Est GFR (CKD-EPI)NonAf POC Glucometer 173 292 Random Glucose Calcium Total Bilirubin AST ALT Alkaline Phosphatase Total Protein Albumin TSH 1.51 Free T4 1.20 H 12/22/18 12/23/18 12/23/18 22:08 00:49 05:13 WBC 6.0 RBC 2.83 L Hgb 8.5 L Hct 26.2 L MCV 92.6 MCH 29.9 MCHC 32.3 RDW 15.6 Plt Count 188 MPV 9.0 Absolute Neuts (auto) 4.1 Neutrophils % 68.8 Lymphocytes % 15.3 Monocytes % 12.4 H Eosinophils % 3.0 Basophils % 0.5 Nucleated RBC % 0 Sodium Potassium Chloride Carbon Dioxide Anion Gap BUN Creatinine Est GFR (CKD-EPI)AfAm Est GFR (CKD-EPI)NonAf POC Glucometer 71 90 Random Glucose Calcium Total Bilirubin AST ALT Alkaline Phosphatase Total Protein Albumin TSH Free T4 12/23/18 12/23/18 05:13 05:43 WBC RBC Hgb Hct MCV MCH MCHC RDW Plt Count MPV Absolute Neuts (auto) Neutrophils % Lymphocytes % Monocytes % Eosinophils % Basophils % Nucleated RBC % Sodium 138 Potassium 4.2 Chloride 99 Carbon Dioxide 29 Anion Gap 10 BUN 48.2 H Creatinine 7.0 H Est GFR (CKD-EPI)AfAm 9.04 Est GFR (CKD-EPI)NonAf 7.80 POC Glucometer 167 Random Glucose 150 H Calcium 7.8 L Total Bilirubin 0.4 AST 25 ALT 33 Alkaline Phosphatase 184 H Total Protein 6.7 Albumin 2.8 L TSH Free T4 S1 S2 RRR Lungs clear Abd- soft, obese No edema Rt 5 th finger --dressing in place A/P ESRD on HD necrotic finger\ PAD -- s/p surgery -- pain control -- midodrine tid -- iv antibiotics - cardiology eval noted - may transfer to med surg Problem List - Problems (1) Cellulitis of finger Code(s): L03.019 - CELLULITIS OF UNSPECIFIED FINGER Qualifiers: Laterality: right Qualified Code(s): L03.011 - Cellulitis of right finger (2) ESRD (end stage renal disease) Code(s): N18.6 - END STAGE RENAL DISEASE (3) Wet gangrene Code(s): I96 - GANGRENE, NOT ELSEWHERE CLASSIFIED (4) Anemia Code(s): D64.9 - ANEMIA, UNSPECIFIED Qualifiers: Anemia type: unspecified type Qualified Code(s): D64.9 - Anemia, unspecified (5) ESRD (end stage renal disease) on dialysis Code(s): N18.6 - END STAGE RENAL DISEASE; Z99.2 - DEPENDENCE ON RENAL DIALYSIS
[2018-12-23] MEDS: MIDODRINE HCL 5 MG TABLET PO SCH ×4 (12:30→17:59)
--- NOTE | 2018-12-23 14:14 | PN ---
Progress Note, Physician History of Present Illness: stable no new issues - Current Medication List Current Medications: Active Medications Acetaminophen (Tylenol -) 650 mg PO Q6H PRN PRN Reason: PAIN LEVEL 1-5 Albuterol/Ipratropium (Duoneb -) 1 amp NEB RTID [facility] Last Admin: 12/23/18 13:50 Dose: 1 amp Atorvastatin Calcium (Lipitor -) 40 mg PO HS [facility] Last Admin: 12/22/18 22:03 Dose: 40 mg Calcium Carbonate (Calcium Carbonate -) 650 mg PO DAILY PRN PRN Reason: INDIGESTION Heparin Sodium (Porcine) (Heparin -) 5,000 unit SQ BID [facility] Last Admin: 12/23/18 10:36 Dose: 5,000 unit Clindamycin Phosphate (Cleocin 600 Mg Premix Ivpb -) 600 mg in 50 mls @ 100 mls /hr IVPB Q8H-IV [facility]; Protocol Last Admin: 12/23/18 10:38 Dose: 100 mls/hr Piperacillin Sod/Tazobactam (Sod 3.375 gm/ Dextrose) 50 mls @ 100 mls/hr IVPB Q8H-IV [facility]; Protocol Last Admin: 12/23/18 10:37 Dose: 100 mls/hr Ibuprofen (Motrin -) 600 mg PO Q6H PRN PRN Reason: PAIN LEVEL 1-5 Last Admin: 12/22/18 11:25 Dose: 600 mg Insulin Aspart (Novolog Vial Sliding Scale -) 1 vial SQ ACHS [facility]; Protocol Last Admin: 12/23/18 11:53 Dose: Not Given Insulin Aspart (Novolog Mix 70/30 Vial) 28 units SQ BIDAC [facility] Last Admin: 12/23/18 06:36 Dose: 28 unit Loratadine (Claritin -) 10 mg PO DAILY [facility] Last Admin: 12/23/18 10:35 Dose: 10 mg Midodrine (Proamatine -) 5 mg PO TID-MID [facility] Last Admin: 12/23/18 13:55 Dose: 5 mg Multivit/Ca Carb/B Cmplx/FA/Prenat (Nephro-Kelly -) 1 tablet PO DAILY [facility] Last Admin: 12/23/18 10:36 Dose: 1 tablet Pantoprazole Sodium (Protonix -) 40 mg PO DAILY [facility] Last Admin: 12/23/18 10:36 Dose: 40 mg Sevelamer Carbonate (Renvela -) 1,600 mg PO TIDCM [facility] Last Admin: 12/23/18 12:31 Dose: 1,600 mg Simethicone (Mylicon -) 80 mg PO DAILY PRN PRN Reason: GAS - Objective Vital Signs: Vital Signs Temperature 97.8 F 12/23/18 12:00 Pulse Rate 63 12/23/18 13:56 Respiratory Rate 19 12/23/18 13:56 Blood Pressure 88/37 L 12/23/18 13:56 O2 Sat by Pulse Oximetry (%) 97 12/22/18 21:00 Constitutional: Yes: No Distress, Calm Cardiovascular: Yes: Regular Rate and Rhythm Respiratory: Yes: Regular, CTA Bilaterally Gastrointestinal: Yes: Normal Bowel Sounds, Soft Musculoskeletal: Yes: WNL Extremities: Yes: Other Wound/Incision: Yes: Dressing Dry and Intact Neurological: Yes: Alert, Oriented Psychiatric: Yes: Alert, Oriented Labs: CBC, BMP 12/23/18 05:13 12/23/18 05:13 INR, PTT INR 1.11 (0.83-1.09) H 12/18/18 16:55 Assessment/Plan Problem List - Problems (1) Cellulitis of finger Code(s): L03.019 - CELLULITIS OF UNSPECIFIED FINGER Qualifiers: Laterality: right Qualified Code(s): L03.011 - Cellulitis of right finger (2) ESRD (end stage renal disease) Code(s): N18.6 - END STAGE RENAL DISEASE (3) Wet gangrene Code(s): I96 - GANGRENE, NOT ELSEWHERE CLASSIFIED (4) Anemia Code(s): D64.9 - ANEMIA, UNSPECIFIED Qualifiers: Anemia type: unspecified type Qualified Code(s): D64.9 - Anemia, unspecified (5) GERD (gastroesophageal reflux disease) Code(s): K21.9 - GASTRO-ESOPHAGEAL REFLUX DISEASE WITHOUT ESOPHAGITIS Qualifiers: Esophagitis presence: esophagitis presence not specified Qualified Code(s) : K21.9 - Gastro-esophageal reflux disease without esophagitis (6) HTN (hypertension) Code(s): I10 - ESSENTIAL (PRIMARY) HYPERTENSION Qualifiers: Hypertension type: essential hypertension Qualified Code(s): I10 - Essential (primary) hypertension (7) Peptic ulcer disease Code(s): K27.9 - PEPTIC ULC, SITE UNSP, UNSP AC OR CHR, W/O HEMOR OR PERF (8) S/P CABG (coronary artery bypass graft) Code(s): Z95.1 - PRESENCE OF AORTOCORONARY BYPASS GRAFT (9) Upper GI bleed Code(s): K92.2 - GASTROINTESTINAL HEMORRHAGE, UNSPECIFIED Assessment/Plan Rt 5th digit gangrene r/o OM s/p revision of amputation POD#1 Rt hand cellulitis Transient hypotension Uncontrolled DM ESRD on HD CAD s/p CABG PUD s/p Rt 3rd digit/partial Lt 5th digit amputations plan will stop clinda cx reports and sensitivities noted rest as per the team wound care
--- NOTE | 2018-12-23 19:56 | PN ---
Progress Note (short form) - Note Progress Note: Patient is seen today out of bed to chair. Reports feeling weak but denies nausea or vomiting Vitals ; BP Vital Signs (72 hours) 12/21/18 12/21/18 12/21/18 00:00 04:00 08:00 Temperature 98.3 F 98.6 F 98 F Pulse Rate 72 64 96 H Respiratory 19 19 18 Rate Blood Pressure 118/86 153/47 L 138/82 O2 Sat by Pulse Oximetry (%) 12/21/18 12/21/18 12/21/18 09:00 12:00 17:00 Temperature 98.6 F Pulse Rate 70 76 Respiratory 18 18 Rate Blood Pressure 125/63 111/66 O2 Sat by Pulse 99 Oximetry (%) 12/21/18 12/21/18 12/22/18 20:30 21:00 02:05 Temperature 98.4 F 99.0 F 98.2 F Pulse Rate 122 H 113 H Respiratory 22 H 22 H 16 Rate Blood Pressure 132/77 122/72 O2 Sat by Pulse 100 Oximetry (%) 12/22/18 12/22/18 12/22/18 07:00 07:15 07:45 Temperature 98.4 F Pulse Rate 110 H 119 H 118 H Respiratory 18 18 18 Rate Blood Pressure 122/60 116/68 120/52 L O2 Sat by Pulse Oximetry (%) 12/22/18 12/22/18 12/22/18 08:15 08:45 09:00 Temperature 98.3 F Pulse Rate 118 H 118 H 80 Respiratory 18 18 16 Rate Blood Pressure 123/82 120/62 83/71 L O2 Sat by Pulse 100 Oximetry (%) 12/22/18 12/22/18 12/22/18 09:15 09:45 10:15 Temperature Pulse Rate 119 H 118 H 120 H Respiratory 18 18 18 Rate Blood Pressure 123/65 118/55 L 99/61 O2 Sat by Pulse Oximetry (%) 12/22/18 12/22/18 12/22/18 10:32 14:00 17:56 Temperature 98.7 F 97.4 F L Pulse Rate 118 H 79 64 Respiratory 18 21 H 17 Rate Blood Pressure 102/62 106/67 98/48 L O2 Sat by Pulse Oximetry (%) 12/22/18 12/22/18 12/23/18 21:00 21:56 01:00 Temperature 98 F 97.7 F Pulse Rate 68 61 Respiratory 17 18 18 Rate Blood Pressure 102/63 97/51 L O2 Sat by Pulse 97 Oximetry (%) 12/23/18 12/23/18 12/23/18 06:00 08:00 09:00 Temperature 98 F Pulse Rate 66 63 Respiratory 18 17 Rate Blood Pressure 103/42 L 121/55 L O2 Sat by Pulse 96 Oximetry (%) 12/23/18 12/23/18 12/23/18 12:00 13:56 17:23 Temperature 97.8 F Pulse Rate 64 63 65 Respiratory 17 19 19 Rate Blood Pressure 93/42 L 88/37 L 91/54 L O2 Sat by Pulse Oximetry (%) 12/23/18 18:05 Temperature 98.3 F Pulse Rate 64 Respiratory 19 Rate Blood Pressure 94/51 L O2 Sat by Pulse Oximetry (%) Lungs: Coarse breath sound in both lung clark with few crackles at the bases. Heart: S1 S2 regular Abd: Obese, soft, non tender Ext; Trace biedal edema. Right hand with surgical dressing Labs: CBCD WBC 6.0 K/mm3 (4.0-10.0) 12/23/18 05:13 RBC 2.83 M/mm3 (4.00-5.60) L 12/23/18 05:13 Hgb 8.5 GM/dL (11.7-16.9) L 12/23/18 05:13 Hct 26.2 % (35.4-49) L 12/23/18 05:13 MCV 92.6 fl (80-96) 12/23/18 05:13 MCHC 32.3 g/dl (32.0-35.9) 12/23/18 05:13 RDW 15.6 % (11.9-15.9) 12/23/18 05:13 Plt Count 188 K/MM3 (134-434) 12/23/18 05:13 MPV 9.0 fl (7.5-11.1) 12/23/18 05:13 CMP Sodium 138 mmol/L (136-145) 12/23/18 05:13 Potassium 4.2 mmol/L (3.5-5.1) 12/23/18 05:13 Chloride 99 mmol/L (98-107) 12/23/18 05:13 Carbon Dioxide 29 mmol/L (21-32) 12/23/18 05:13 Anion Gap 10 MMOL/L (8-16) 12/23/18 05:13 BUN 48.2 mg/dL (7-18) H 12/23/18 05:13 Creatinine 7.0 mg/dL (0.55-1.3) H 12/23/18 05:13 Calcium 7.8 mg/dL (8.5-10.1) L 12/23/18 05:13 Total Bilirubin 0.4 mg/dL (0.2-1) 12/23/18 05:13 AST 25 U/L (15-37) 12/23/18 05:13 ALT 33 U/L (13-61) 12/23/18 05:13 Alkaline Phosphatase 184 U/L (45-117) H 12/23/18 05:13 Total Protein 6.7 g/dl (6.4-8.2) 12/23/18 05:13 Albumin 2.8 g/dl (3.4-5.0) L 12/23/18 05:13 A/P: 58 year old patient with type 2 diabetes mellitus and end stage renal disease admitted with infected right 4th digital stump Patient has relative hypotension probably secondary to autonomic dysfunction. Will schedule for hemodialysis in a.m with ultra filtration goal as tolerated. Will follow. Problem List - Problems (1) Cellulitis of finger Code(s): L03.019 - CELLULITIS OF UNSPECIFIED FINGER Qualifiers: Laterality: right Qualified Code(s): L03.011 - Cellulitis of right finger (2) ESRD (end stage renal disease) Code(s): N18.6 - END STAGE RENAL DISEASE (3) Anemia Code(s): D64.9 - ANEMIA, UNSPECIFIED Qualifiers: Anemia type: unspecified type Qualified Code(s): D64.9 - Anemia, unspecified
[2018-12-23] MEDS: ATORVASTATIN CA 40 MG TABLET (FP) PO SCH (21:27)
[2018-12-24] MEDS ORDERED: PIPERACILLIN/TAZOBACTAM 3.375 GM VIAL IVPB ONE ×2 (01:06→11:41)
[2018-12-24] MEDS ORDERED: DEXTROSE 5%-WATER - 50 ML IVPB ONE ×3 (01:06→19:09)
[2018-12-24] MEDS: PIPERACILLIN/TAZOB 3.375 GM 3.375 GM in DEXTROSE 5%-WATER - 50 ML IVPB SCH ×2 (01:07→11:43)
[2018-12-24] MEDS: INSULIN SLIDING SCALE (NOVOLOG) 1 VIAL SQ SCH ×4 (06:07→22:58)
[2018-12-24] MEDS: INSULIN (NOVOLOG MIX 70/30) 100 UNITS/ML MDV SQ SCH ×2 (06:08→16:52)
[2018-12-24] MEDS: MIDODRINE HCL 5 MG TABLET PO SCH ×4 (06:35→19:08)
[2018-12-24] MEDS: ALBUTEROL SO4 2.5/IPRATROPIUM 0.5 INH SOL 3 ML VIAL.NEB. NEB SCH ×2 (07:56→14:10)
[2018-12-24] MEDS ORDERED: EPOETIN ALFA 10,000 UNIT/1 ML VIAL IVPUSH ONE (09:00)
--- NOTE | 2018-12-24 10:23 | PN ---
Progress Note, Physician Chief Complaint: right hand digit infection History of Present Illness: 58 yo RHD male PMH ESRD (HD on , , ), DM, PUD, prior bleeding gastric ulcers found on EGD, mesenteric ischemia, CAD s/p CABG august 2017, stents, hx of multiple amputations of right hand fingers. He has been admitted for observation in telemetry after a transient hemodynamic instability in the perioperative period. Now stable - Current Medication List Current Medications: Active Medications Acetaminophen (Tylenol -) 650 mg PO Q6H PRN PRN Reason: PAIN LEVEL 1-5 Albuterol/Ipratropium (Duoneb -) 1 amp NEB RTID [facility] Last Admin: 12/24/18 07:56 Dose: 1 amp Atorvastatin Calcium (Lipitor -) 40 mg PO HS [facility] Last Admin: 12/23/18 21:27 Dose: 40 mg Calcium Carbonate (Calcium Carbonate -) 650 mg PO DAILY PRN PRN Reason: INDIGESTION Heparin Sodium (Porcine) (Heparin -) 5,000 unit SQ BID [facility] Last Admin: 12/23/18 21:27 Dose: 5,000 unit Piperacillin Sod/Tazobactam (Sod 3.375 gm/ Dextrose) 50 mls @ 100 mls/hr IVPB Q8H-IV [facility]; Protocol Last Admin: 12/24/18 01:07 Dose: 100 mls/hr Ibuprofen (Motrin -) 600 mg PO Q6H PRN PRN Reason: PAIN LEVEL 1-5 Last Admin: 12/22/18 11:25 Dose: 600 mg Insulin Aspart (Novolog Vial Sliding Scale -) 1 vial SQ ACHS [facility]; Protocol Last Admin: 12/24/18 06:07 Dose: Not Given Insulin Aspart (Novolog Mix 70/30 Vial) 28 units SQ BIDAC [facility] Last Admin: 12/24/18 06:08 Dose: Not Given Loratadine (Claritin -) 10 mg PO DAILY [facility] Last Admin: 12/23/18 10:35 Dose: 10 mg Midodrine (Proamatine -) 10 mg PO TID-MID [facility] Last Admin: 12/24/18 06:35 Dose: 10 mg Multivit/Ca Carb/B Cmplx/FA/Prenat (Nephro-Kelly -) 1 tablet PO DAILY [facility] Last Admin: 12/23/18 10:36 Dose: 1 tablet Pantoprazole Sodium (Protonix -) 40 mg PO DAILY [facility] Last Admin: 12/23/18 10:36 Dose: 40 mg Sevelamer Carbonate (Renvela -) 1,600 mg PO TIDCM [facility] Last Admin: 12/23/18 17:34 Dose: 1,600 mg Simethicone (Mylicon -) 80 mg PO DAILY PRN PRN Reason: GAS - Objective Vital Signs: Vital Signs Temperature 98.5 F 12/24/18 07:10 Pulse Rate 57 L 12/24/18 09:15 Respiratory Rate 18 12/24/18 09:15 Blood Pressure 131/61 12/24/18 09:15 O2 Sat by Pulse Oximetry (%) 99 12/24/18 07:50 Constitutional: Yes: Well Nourished, No Distress, Calm Eyes: Yes: Conjunctiva Clear, EOM Intact HENT: Yes: Atraumatic, Normocephalic Neck: Yes: Supple, Trachea Midline Cardiovascular: Yes: Regular Rate and Rhythm, S1, S2 Respiratory: Yes: Regular, CTA Bilaterally Gastrointestinal: Yes: Normal Bowel Sounds, Soft ...Rectal Exam: Yes: Deferred Genitourinary: No: CVA Tenderness - Left, CVA Tenderness - Right Breast(s): No: Mass, Nipple Inversion Extremities: No: Cool, Cyanosis Edema: No Peripheral Pulses WNL: Yes Peripheral Pulses: Left Radial: 2+, Right Radial: 2+, Left Doralis Pedis: 2+, Right Dorsalis Pedis: 2+, Left Femoral: 2+, Right Femoral: 2+ Wound/Incision: Yes: Clean/Dry, Well Approximated, Dressing Dry and Intact Neurological: Yes: Alert, Oriented Psychiatric: Yes: Alert, Oriented Labs: CBC, BMP 12/23/18 05:13 12/23/18 05:13 INR, PTT INR 1.11 (0.83-1.09) H 12/18/18 16:55 Microbiology 12/18/18 16:55 Blood - Peripheral Venous Blood Culture - Final NO GROWTH AFTER 5 DAYS INCUBATION 12/18/18 16:55 Blood - Peripheral Venous Blood Culture - Final NO GROWTH AFTER 5 DAYS INCUBATION 12/19/18 22:46 Finger - Right Small Finger Gram Stain - Final 12/19/18 22:46 Finger - Right Small Finger Wound Culture - Final Citrobacter Freundii Problem List - Problems (1) Wet gangrene Assessment/Plan: 58yo male RHD with s/p multiple digital amputations for gangrene now with Right small finger/ ulanr digit wet gangrene POD#5 s/p Revision amputation or right ulnar digit wet gangrene/small finger. Patient reports pain at the site. 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 Diabetes mellitus complication status: with other specified complication Qualified Code(s): E11.69 - Type 2 diabetes mellitus with other specified complication; Z79.4 - watermaster (current) use of 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
--- NOTE | 2018-12-24 10:44 | PN ---
Progress Note (short form) - Note Progress Note: pt in tele ICU no complaints no chest pain no dizziness Vital Signs - 24 hr 12/23/18 12/23/18 12/23/18 12:00 13:56 17:23 Temperature 97.8 F Pulse Rate 64 63 65 Respiratory 17 19 19 Rate Blood Pressure 93/42 L 88/37 L 91/54 L O2 Sat by Pulse Oximetry (%) 12/23/18 12/23/18 12/23/18 18:05 19:51 22:00 Temperature 98.3 F 98.5 F Pulse Rate 64 64 Respiratory 19 21 H Rate Blood Pressure 94/51 L 117/66 O2 Sat by Pulse 96 Oximetry (%) 12/24/18 12/24/18 12/24/18 02:00 04:42 06:00 Temperature 98.6 F 98.2 F Pulse Rate 59 L 62 61 Respiratory 17 18 17 Rate Blood Pressure 153/74 130/62 130/62 O2 Sat by Pulse Oximetry (%) 12/24/18 12/24/18 12/24/18 07:10 07:15 07:45 Temperature 98.5 F Pulse Rate 59 L 59 L 60 Respiratory 18 18 18 Rate Blood Pressure 131/46 L 122/59 L 119/60 O2 Sat by Pulse Oximetry (%) 12/24/18 12/24/18 12/24/18 07:50 08:15 08:45 Temperature Pulse Rate 56 L 58 L Respiratory 18 18 Rate Blood Pressure 130/65 136/59 L O2 Sat by Pulse 99 Oximetry (%) 12/24/18 12/24/18 12/24/18 09:15 09:45 10:15 Temperature Pulse Rate 57 L 59 L 58 L Respiratory 18 18 18 Rate Blood Pressure 131/61 124/56 L 122/58 L O2 Sat by Pulse Oximetry (%) 12/24/18 10:20 Temperature Pulse Rate 58 L Respiratory 18 Rate Blood Pressure 120/54 L O2 Sat by Pulse Oximetry (%) Current Medications Generic Name Dose Route Start Last Admin Trade Name Freq PRN Reason Stop Dose Admin Acetaminophen 650 mg 12/20/18 08:23 Tylenol - PO Q6H PRN PAIN LEVEL 1-5 Albuterol/Ipratropium 1 amp 12/20/18 14:00 12/24/18 07:56 Duoneb - NEB 1 amp RTID [facility] Administration Atorvastatin Calcium 40 mg 12/20/18 22:00 12/23/18 21:27 Lipitor - PO 40 mg HS [facility] Administration Calcium Carbonate 650 mg 12/20/18 07:30 Calcium Carbonate - PO DAILY PRN INDIGESTION Heparin Sodium (Porcine) 5,000 unit 12/20/18 10:00 12/23/18 21:27 Heparin - SQ 5,000 unit BID [facility] Administration Piperacillin Sod/Tazobactam 50 mls @ 100 mls/hr 12/21/18 21:30 12/24/18 01:07 Sod 3.375 gm/ Dextrose IVPB 100 mls/hr Q8H-IV [facility] Administration Protocol Ibuprofen 600 mg 12/20/18 08:23 12/22/18 11:25 Motrin - PO 600 mg Q6H PRN Administration PAIN LEVEL 1-5 Insulin Aspart 1 vial 12/20/18 11:00 12/24/18 06:07 Novolog Vial Sliding Scale - SQ Not Given ACHS [facility] Protocol Insulin Aspart 28 units 12/21/18 10:03 12/24/18 06:08 Novolog Mix 70/30 Vial SQ Not Given BIDAC [facility] Loratadine 10 mg 12/20/18 10:00 12/23/18 10:35 Claritin - PO 10 mg DAILY [facility] Administration Midodrine 10 mg 12/23/18 18:00 12/24/18 06:35 Proamatine - PO 10 mg TID-MID [facility] Administration Multivit/Ca Carb/B Cmplx/FA/Prenat 1 tablet 12/20/18 10:00 12/23/18 10:36 Nephro-Kelly - PO 1 tablet DAILY [facility] Administration Pantoprazole Sodium 40 mg 12/20/18 10:00 12/23/18 10:36 Protonix - PO 40 mg DAILY [facility] Administration Sevelamer Carbonate 1,600 mg 12/20/18 08:00 12/23/18 17:34 Renvela - PO 1,600 mg TIDCM [facility] Administration Simethicone 80 mg 12/20/18 07:30 Mylicon - PO DAILY PRN GAS Laboratory Results - last 24 hr 12/23/18 12/23/18 12/23/18 11:45 17:31 20:47 POC Glucometer 104 110 104 12/24/18 05:27 POC Glucometer 91 S1 S2 RRR Lungs clear Abd- soft, obese No edema Rt 5 th finger --dressing in place A/P ESRD on HD necrotic finger\ PAD -- s/p surgery -- will be following up today for dressing change -- pain control-->adequate -- midodrine tid -- iv antibiotics per ID - cardiology eval noted - may transfer to med surg Problem List - Problems (1) Cellulitis of finger Code(s): L03.019 - CELLULITIS OF UNSPECIFIED FINGER Qualifiers: Laterality: right Qualified Code(s): L03.011 - Cellulitis of right finger (2) ESRD (end stage renal disease) Code(s): N18.6 - END STAGE RENAL DISEASE (3) Wet gangrene Code(s): I96 - GANGRENE, NOT ELSEWHERE CLASSIFIED (4) Anemia Code(s): D64.9 - ANEMIA, UNSPECIFIED Qualifiers: Anemia type: unspecified type Qualified Code(s): D64.9 - Anemia, unspecified (5) ESRD (end stage renal disease) on dialysis Code(s): N18.6 - END STAGE RENAL DISEASE; Z99.2 - DEPENDENCE ON RENAL DIALYSIS
[2018-12-24] MEDS: LORATADINE 10 MG TABLET PO SCH (11:42)
[2018-12-24] MEDS: SEVELAMER CARBONATE 800 MG TAB (FP) PO SCH ×3 (11:42→17:30)
[2018-12-24] MEDS: HEPARIN NA (PORCINE) 5,000 UNITS/ML 1ML VIAL SQ SCH ×2 (11:42→22:57)
[2018-12-24] MEDS: PANTOPRAZOLE 40 MG TABLET (FP) PO SCH (11:43)
[2018-12-24] MEDS: VITAMIN B COMP W-C 1 EA TABLET PO SCH (11:43)
[2018-12-24] MEDS: IBUPROFEN 600 MG TABLET (FP) PO PRN (11:54)
--- NOTE | 2018-12-24 12:10 | PN ---
Progress Note, Physician History of Present Illness: stable no issues - Current Medication List Current Medications: Active Medications Acetaminophen (Tylenol -) 650 mg PO Q6H PRN PRN Reason: PAIN LEVEL 1-5 Albuterol/Ipratropium (Duoneb -) 1 amp NEB RTID [facility] Last Admin: 12/24/18 07:56 Dose: 1 amp Atorvastatin Calcium (Lipitor -) 40 mg PO HS [facility] Last Admin: 12/23/18 21:27 Dose: 40 mg Calcium Carbonate (Calcium Carbonate -) 650 mg PO DAILY PRN PRN Reason: INDIGESTION Heparin Sodium (Porcine) (Heparin -) 5,000 unit SQ BID [facility] Last Admin: 12/24/18 11:42 Dose: 5,000 unit Piperacillin Sod/Tazobactam (Sod 3.375 gm/ Dextrose) 50 mls @ 100 mls/hr IVPB Q8H-IV [facility]; Protocol Last Admin: 12/24/18 11:43 Dose: 100 mls/hr Ibuprofen (Motrin -) 600 mg PO Q6H PRN PRN Reason: PAIN LEVEL 1-5 Last Admin: 12/24/18 11:54 Dose: 600 mg Insulin Aspart (Novolog Vial Sliding Scale -) 1 vial SQ ACHS [facility]; Protocol Last Admin: 12/24/18 11:37 Dose: 2 units Insulin Aspart (Novolog Mix 70/30 Vial) 28 units SQ BIDAC [facility] Last Admin: 12/24/18 06:08 Dose: Not Given Loratadine (Claritin -) 10 mg PO DAILY [facility] Last Admin: 12/24/18 11:42 Dose: 10 mg Midodrine (Proamatine -) 10 mg PO TID-MID [facility] Last Admin: 12/24/18 11:43 Dose: 10 mg Multivit/Ca Carb/B Cmplx/FA/Prenat (Nephro-Kelly -) 1 tablet PO DAILY [facility] Last Admin: 12/24/18 11:43 Dose: 1 tablet Pantoprazole Sodium (Protonix -) 40 mg PO DAILY [facility] Last Admin: 12/24/18 11:43 Dose: 40 mg Sevelamer Carbonate (Renvela -) 1,600 mg PO TIDCM [facility] Last Admin: 12/24/18 11:42 Dose: 1,600 mg Simethicone (Mylicon -) 80 mg PO DAILY PRN PRN Reason: GAS - Objective Vital Signs: Vital Signs Temperature 98 F 12/24/18 12:07 Pulse Rate 74 12/24/18 12:07 Respiratory Rate 17 12/24/18 12:07 Blood Pressure 125/58 L 12/24/18 12:07 O2 Sat by Pulse Oximetry (%) 99 12/24/18 07:50 Constitutional: Yes: No Distress, Calm Cardiovascular: Yes: S1, S2 Respiratory: Yes: Regular, CTA Bilaterally Gastrointestinal: Yes: Normal Bowel Sounds, Soft Musculoskeletal: Yes: WNL Extremities: Yes: Other Neurological: Yes: Alert, Oriented Psychiatric: Yes: Alert, Oriented Labs: CBC, BMP 12/23/18 05:13 12/23/18 05:13 INR, PTT INR 1.11 (0.83-1.09) H 12/18/18 16:55 Assessment/Plan Problem List - Problems (1) Cellulitis of finger Code(s): L03.019 - CELLULITIS OF UNSPECIFIED FINGER Qualifiers: Laterality: right Qualified Code(s): L03.011 - Cellulitis of right finger (2) ESRD (end stage renal disease) Code(s): N18.6 - END STAGE RENAL DISEASE (3) Wet gangrene Code(s): I96 - GANGRENE, NOT ELSEWHERE CLASSIFIED (4) Anemia Code(s): D64.9 - ANEMIA, UNSPECIFIED Qualifiers: Anemia type: unspecified type Qualified Code(s): D64.9 - Anemia, unspecified (5) GERD (gastroesophageal reflux disease) Code(s): K21.9 - GASTRO-ESOPHAGEAL REFLUX DISEASE WITHOUT ESOPHAGITIS Qualifiers: Esophagitis presence: esophagitis presence not specified Qualified Code(s) : K21.9 - Gastro-esophageal reflux disease without esophagitis (6) HTN (hypertension) Code(s): I10 - ESSENTIAL (PRIMARY) HYPERTENSION Qualifiers: Hypertension type: essential hypertension Qualified Code(s): I10 - Essential (primary) hypertension (7) Peptic ulcer disease Code(s): K27.9 - PEPTIC ULC, SITE UNSP, UNSP AC OR CHR, W/O HEMOR OR PERF (8) S/P CABG (coronary artery bypass graft) Code(s): Z95.1 - PRESENCE OF AORTOCORONARY BYPASS GRAFT (9) Upper GI bleed Code(s): K92.2 - GASTROINTESTINAL HEMORRHAGE, UNSPECIFIED Assessment/Plan Rt 5th digit gangrene r/o OM s/p revision of amputation POD#1 Rt hand cellulitis Transient hypotension Uncontrolled DM ESRD on HD CAD s/p CABG PUD s/p Rt 3rd digit/partial Lt 5th digit amputations plan changed to ceftriaxone lakhwinder d/w hand rest as per the team wound care
[2018-12-24] MEDS ORDERED: CEFTRIAXONE 1 GM in DEXTROSE 5%-WATER - 50 ML IVPB SCH (12:30)
--- NOTE | 2018-12-24 15:30 | PN ---
Progress Note (short form) - Note Progress Note: s: no chest pain, palps, dizziness, stable dyspnea. Current Medications Acetaminophen (Tylenol -) 650 mg PO Q6H PRN PRN Reason: PAIN LEVEL 1-5 Albuterol/Ipratropium (Duoneb -) 1 amp NEB RTID [facility] Last Admin: 12/24/18 14:10 Dose: 1 amp Atorvastatin Calcium (Lipitor -) 40 mg PO HS [facility] Last Admin: 12/23/18 21:27 Dose: 40 mg Calcium Carbonate (Calcium Carbonate -) 650 mg PO DAILY PRN PRN Reason: INDIGESTION Heparin Sodium (Porcine) (Heparin -) 5,000 unit SQ BID [facility] Last Admin: 12/24/18 11:42 Dose: 5,000 unit Ceftriaxone Sodium 1 gm/ (Dextrose) 50 mls @ 100 mls/hr IVPB DAILY [facility]; Protocol Ibuprofen (Motrin -) 600 mg PO Q6H PRN PRN Reason: PAIN LEVEL 1-5 Last Admin: 12/24/18 11:54 Dose: 600 mg Insulin Aspart (Novolog Vial Sliding Scale -) 1 vial SQ ACHS [facility]; Protocol Last Admin: 12/24/18 11:37 Dose: 2 units Insulin Aspart (Novolog Mix 70/30 Vial) 28 units SQ BIDAC [facility] Last Admin: 12/24/18 06:08 Dose: Not Given Loratadine (Claritin -) 10 mg PO DAILY [facility] Last Admin: 12/24/18 11:42 Dose: 10 mg Midodrine (Proamatine -) 10 mg PO TID-MID [facility] Last Admin: 12/24/18 11:43 Dose: 10 mg Multivit/Ca Carb/B Cmplx/FA/Prenat (Nephro-Kelly -) 1 tablet PO DAILY [facility] Last Admin: 12/24/18 11:43 Dose: 1 tablet Pantoprazole Sodium (Protonix -) 40 mg PO DAILY [facility] Last Admin: 12/24/18 11:43 Dose: 40 mg Sevelamer Carbonate (Renvela -) 1,600 mg PO TIDCM [facility] Last Admin: 12/24/18 11:42 Dose: 1,600 mg Simethicone (Mylicon -) 80 mg PO DAILY PRN PRN Reason: GAS Vital Signs Period Temp Pulse Resp BP Sys/Harris Pulse Ox Last 24 Hr 98 F-98.6 F 56-74 17-21 91-153/46-74 96-99 Constitutional: Yes: No Distress, Calm Eyes: Yes: Conjunctiva Clear, EOM Intact HENT: Yes: Atraumatic, Normocephalic Neck: Yes: Supple, Trachea Midline Respiratory: Yes: Regular, CTA Bilaterally Gastrointestinal: Yes: Normal Bowel Sounds, Soft Cardiovascular: Yes: Regular Rate and Rhythm PMI: Non-Displaced Heart Sounds: Yes: S1, S2 Murmur: No: Systolic Murmur Musculoskeletal: No: Back Pain Extremities: No: Cold Edema: No Peripheral Pulses WNL: No Peripheral Pulses: 1+ Left Doralis Pedis, 1+ Right Dorsalis Pedis Integumentary: No: Jaundice Neurological: Yes: Alert, Oriented Psychiatric: No: Agitated Assessment/Plan tele: sinus, PVCs EKG: sinus, nl intervals, no ischemic changes 58M h/o ESRD on HD, DM, PUD, CAD s/p CABG 08/2017 and prior stents, multiple prior amputations p/w finger wounds, s/p amputation here with tachycardia, hypotension post op Tachycardia, hypotension - hypotension, tachycardia improved - tachycardia may have been multifactorial - post op pain, infection, anemia - echo nl LV function, nl RV - continue midodrine CAD s/p CABG - cont statin, restart aspirin when able per surgery s/p finger amputations - manage per surgery DM - manage per primary
[2018-12-24] MEDS ORDERED: cefTRIAXone SODIUM 1 GM VIAL ONE (19:09)
[2018-12-24] MEDS: CEFTRIAXONE 1 GM in DEXTROSE 5%-WATER - 50 ML IVPB SCH (19:13)
[2018-12-24] MEDS ORDERED: CALCIUM CARBONATE 650 MG TABLET PO PRN (21:23)
[2018-12-24] MEDS ORDERED: ACETAMINOPHEN 325 MG TABLET (FP) PO PRN (21:23)
[2018-12-24] MEDS: ATORVASTATIN CA 40 MG TABLET (FP) PO SCH (22:57)
[2018-12-25] MEDS: IBUPROFEN 600 MG TABLET (FP) PO PRN ×2 (05:59→22:12)
[2018-12-25] MEDS: INSULIN SLIDING SCALE (NOVOLOG) 1 VIAL SQ SCH ×4 (06:26→22:10)
[2018-12-25] MEDS: INSULIN (NOVOLOG MIX 70/30) 100 UNITS/ML MDV SQ SCH ×2 (06:26→19:22)
[2018-12-25] MEDS ORDERED: INSULIN (NOVOLOG MIX 70/30) 100 UNITS/ML MDV SQ ONE (06:30)
[2018-12-25] MEDS ORDERED: INSULIN (NOVOLOG) ASPART 100 UNITS/ML 10ML VIAL ONE (06:31)
[2018-12-25] MEDS: SEVELAMER CARBONATE 800 MG TAB (FP) PO SCH ×4 (07:22→17:53)
[2018-12-25] MEDS: ALBUTEROL SO4 2.5/IPRATROPIUM 0.5 INH SOL 3 ML VIAL.NEB. NEB SCH ×3 (07:54→20:25)
--- NOTE | 2018-12-25 08:14 | PN ---
Progress Note, Physician History of Present Illness: stable no issues according to patient plan to change dressing today - Current Medication List Current Medications: Active Medications Acetaminophen (Tylenol -) 650 mg PO Q6H PRN PRN Reason: PAIN LEVEL 1-5 Albuterol/Ipratropium (Duoneb -) 1 amp NEB RTID [facility] Last Admin: 12/25/18 07:54 Dose: 1 amp Atorvastatin Calcium (Lipitor -) 40 mg PO HS [facility] Last Admin: 12/24/18 22:57 Dose: 40 mg Calcium Carbonate (Calcium Carbonate -) 650 mg PO DAILY PRN PRN Reason: INDIGESTION Heparin Sodium (Porcine) (Heparin -) 5,000 unit SQ BID [facility] Last Admin: 12/24/18 22:57 Dose: 5,000 unit Ceftriaxone Sodium 1 gm/ (Dextrose) 50 mls @ 100 mls/hr IVPB DAILY [facility]; Protocol Last Admin: 12/24/18 19:13 Dose: 100 mls/hr Ibuprofen (Motrin -) 600 mg PO Q6H PRN PRN Reason: PAIN LEVEL 1-5 Last Admin: 12/25/18 05:59 Dose: 600 mg Insulin Aspart (Novolog Mix 70/30 Vial) 28 units SQ BIDAC [facility] Last Admin: 12/25/18 06:26 Dose: 28 unit Insulin Aspart (Novolog Vial Sliding Scale -) 1 vial SQ ACHS [facility]; Protocol Last Admin: 12/25/18 06:26 Dose: 2 unit Loratadine (Claritin -) 10 mg PO DAILY [facility] Midodrine (Proamatine -) 10 mg PO TID-MID [facility] Last Admin: 12/24/18 19:08 Dose: Not Given Multivit/Ca Carb/B Cmplx/FA/Prenat (Nephro-Kelly -) 1 tablet PO DAILY [facility] Pantoprazole Sodium (Protonix -) 40 mg PO DAILY [facility] Sevelamer Carbonate (Renvela -) 1,600 mg PO TIDCM [facility] Simethicone (Mylicon -) 80 mg PO DAILY PRN PRN Reason: GAS - Objective Vital Signs: Vital Signs Temperature 97.2 F L 12/25/18 06:42 Pulse Rate 72 12/25/18 06:42 Respiratory Rate 20 12/25/18 06:42 Blood Pressure 108/74 12/25/18 06:42 O2 Sat by Pulse Oximetry (%) 97 12/24/18 21:00 Constitutional: Yes: No Distress, Calm, Obese Cardiovascular: Yes: S1, S2 Respiratory: Yes: Regular, CTA Bilaterally Gastrointestinal: Yes: Normal Bowel Sounds, Soft Musculoskeletal: Yes: WNL Extremities: Yes: Other Wound/Incision: Yes: Dressing Dry and Intact Neurological: Yes: Alert, Oriented Psychiatric: Yes: Alert, Oriented Labs: CBC, BMP 12/23/18 05:13 12/23/18 05:13 INR, PTT INR 1.11 (0.83-1.09) H 12/18/18 16:55 Assessment/Plan Problem List - Problems (1) Cellulitis of finger Code(s): L03.019 - CELLULITIS OF UNSPECIFIED FINGER Qualifiers: Laterality: right Qualified Code(s): L03.011 - Cellulitis of right finger (2) ESRD (end stage renal disease) Code(s): N18.6 - END STAGE RENAL DISEASE (3) Wet gangrene Code(s): I96 - GANGRENE, NOT ELSEWHERE CLASSIFIED (4) Anemia Code(s): D64.9 - ANEMIA, UNSPECIFIED Qualifiers: Anemia type: unspecified type Qualified Code(s): D64.9 - Anemia, unspecified (5) GERD (gastroesophageal reflux disease) Code(s): K21.9 - GASTRO-ESOPHAGEAL REFLUX DISEASE WITHOUT ESOPHAGITIS Qualifiers: Esophagitis presence: esophagitis presence not specified Qualified Code(s) : K21.9 - Gastro-esophageal reflux disease without esophagitis (6) HTN (hypertension) Code(s): I10 - ESSENTIAL (PRIMARY) HYPERTENSION Qualifiers: Hypertension type: essential hypertension Qualified Code(s): I10 - Essential (primary) hypertension (7) Peptic ulcer disease Code(s): K27.9 - PEPTIC ULC, SITE UNSP, UNSP AC OR CHR, W/O HEMOR OR PERF (8) S/P CABG (coronary artery bypass graft) Code(s): Z95.1 - PRESENCE OF AORTOCORONARY BYPASS GRAFT (9) Upper GI bleed Code(s): K92.2 - GASTROINTESTINAL HEMORRHAGE, UNSPECIFIED Assessment/Plan Rt 5th digit gangrene r/o OM s/p revision of amputation POD#1 Rt hand cellulitis Transient hypotension Uncontrolled DM ESRD on HD CAD s/p CABG PUD s/p Rt 3rd digit/partial Lt 5th digit amputations plan continue abx will d/w with hand might be able to change to po rest as per the team
[2018-12-25] MEDS ORDERED: cefTRIAXone SODIUM 1 GM VIAL ONE (10:42)
--- NOTE | 2018-12-25 10:42 | PN ---
Progress Note, Physician Chief Complaint: no CP or SOB - Current Medication List Current Medications: Active Medications Acetaminophen (Tylenol -) 650 mg PO Q6H PRN PRN Reason: PAIN LEVEL 1-5 Albuterol/Ipratropium (Duoneb -) 1 amp NEB RTID [facility] Last Admin: 12/25/18 07:54 Dose: 1 amp Atorvastatin Calcium (Lipitor -) 40 mg PO HS [facility] Last Admin: 12/24/18 22:57 Dose: 40 mg Calcium Carbonate (Calcium Carbonate -) 650 mg PO DAILY PRN PRN Reason: INDIGESTION Heparin Sodium (Porcine) (Heparin -) 5,000 unit SQ BID [facility] Last Admin: 12/24/18 22:57 Dose: 5,000 unit Ceftriaxone Sodium 1 gm/ (Dextrose) 50 mls @ 100 mls/hr IVPB DAILY [facility]; Protocol Last Admin: 12/24/18 19:13 Dose: 100 mls/hr Ibuprofen (Motrin -) 600 mg PO Q6H PRN PRN Reason: PAIN LEVEL 1-5 Last Admin: 12/25/18 05:59 Dose: 600 mg Insulin Aspart (Novolog Mix 70/30 Vial) 28 units SQ BIDAC [facility] Last Admin: 12/25/18 06:26 Dose: 28 unit Insulin Aspart (Novolog Vial Sliding Scale -) 1 vial SQ ACHS [facility]; Protocol Last Admin: 12/25/18 06:26 Dose: 2 unit Loratadine (Claritin -) 10 mg PO DAILY [facility] Midodrine (Proamatine -) 10 mg PO TID-MID [facility] Last Admin: 12/24/18 19:08 Dose: Not Given Multivit/Ca Carb/B Cmplx/FA/Prenat (Nephro-Kelly -) 1 tablet PO DAILY [facility] Pantoprazole Sodium (Protonix -) 40 mg PO DAILY [facility] Sevelamer Carbonate (Renvela -) 1,600 mg PO TIDCM [facility] Simethicone (Mylicon -) 80 mg PO DAILY PRN PRN Reason: GAS - Objective Vital Signs: Vital Signs Temperature 97.2 F L 12/25/18 06:42 Pulse Rate 72 12/25/18 06:42 Respiratory Rate 20 12/25/18 06:42 Blood Pressure 108/74 12/25/18 06:42 O2 Sat by Pulse Oximetry (%) 97 12/24/18 21:00 Constitutional: Yes: No Distress, Calm Eyes: Yes: Conjunctiva Clear Cardiovascular: Yes: Regular Rate and Rhythm Respiratory: Yes: CTA Bilaterally Gastrointestinal: Yes: Soft Edema: No Neurological: Yes: Alert, Oriented Labs: CBC, BMP 12/23/18 05:13 12/23/18 05:13 INR, PTT INR 1.11 (0.83-1.09) H 12/18/18 16:55 Assessment/Plan Assessment/Plan tele: sinus, PVCs EKG: sinus, nl intervals, no ischemic changes 58M h/o ESRD on HD, DM, PUD, CAD s/p CABG 08/2017 and prior stents, multiple prior amputations p/w finger wounds, s/p amputation here with tachycardia, hypotension post op: Tachycardia, hypotension: - hypotension, tachycardia improved - tachycardia may have been multifactorial - post op pain, infection, anemia - echo nl LV function, nl RV - continue midodrine CAD s/p CABG: - cont statin, restart aspirin when able per surgery S/P finger amputations: - manage per surgery DM: - manage per primary
[2018-12-25] MEDS ORDERED: DEXTROSE 5%-WATER - 50 ML IVPB ONE (10:43)
[2018-12-25] MEDS: VITAMIN B COMP W-C 1 EA TABLET PO SCH (11:05)
[2018-12-25] MEDS: PANTOPRAZOLE 40 MG TABLET (FP) PO SCH (11:05)
[2018-12-25] MEDS: LORATADINE 10 MG TABLET PO SCH (11:05)
[2018-12-25] MEDS: CEFTRIAXONE 1 GM in DEXTROSE 5%-WATER - 50 ML IVPB SCH (11:05)
[2018-12-25] MEDS: HEPARIN NA (PORCINE) 5,000 UNITS/ML 1ML VIAL SQ SCH ×2 (11:06→22:11)
[2018-12-25] MEDS: MIDODRINE HCL 5 MG TABLET PO SCH ×3 (11:21→18:01)
--- NOTE | 2018-12-25 12:27 | PN ---
Progress Note (short form) - Note Progress Note: Pt seen/ examined chart reviewed awake/ comfortable Vital Signs Temp 97.2 F L 12/25/18 06:42 Pulse 72 12/25/18 06:42 Resp 20 12/25/18 06:42 BP 108/74 12/25/18 06:42 Pulse Ox 97 12/24/18 21:00 Intake & Output 12/24/18 12/25/18 12/25/18 23:59 11:59 23:59 Intake Total 490 Balance 490 Weight 213 lb 6 oz Intake: Oral 490 Other: Voiding Method Urinal Bowel Movement No Weight Measurement Method Built in [facility] Active Medications Acetaminophen (Tylenol -) 650 mg PO Q6H PRN PRN Reason: PAIN LEVEL 1-5 Albuterol/Ipratropium (Duoneb -) 1 amp NEB RTID [facility] Last Admin: 12/25/18 07:54 Dose: 1 amp Atorvastatin Calcium (Lipitor -) 40 mg PO HS [facility] Last Admin: 12/24/18 22:57 Dose: 40 mg Calcium Carbonate (Calcium Carbonate -) 650 mg PO DAILY PRN PRN Reason: INDIGESTION Heparin Sodium (Porcine) (Heparin -) 5,000 unit SQ BID [facility] Last Admin: 12/25/18 11:06 Dose: 5,000 unit Ceftriaxone Sodium 1 gm/ (Dextrose) 50 mls @ 100 mls/hr IVPB DAILY [facility]; Protocol Last Admin: 12/25/18 11:05 Dose: 100 mls/hr Ibuprofen (Motrin -) 600 mg PO Q6H PRN PRN Reason: PAIN LEVEL 1-5 Last Admin: 12/25/18 05:59 Dose: 600 mg Insulin Aspart (Novolog Mix 70/30 Vial) 28 units SQ BIDAC [facility] Last Admin: 12/25/18 06:26 Dose: 28 unit Insulin Aspart (Novolog Vial Sliding Scale -) 1 vial SQ ACHS [facility]; Protocol Last Admin: 12/25/18 06:26 Dose: 2 unit Loratadine (Claritin -) 10 mg PO DAILY [facility] Last Admin: 12/25/18 11:05 Dose: 10 mg Midodrine (Proamatine -) 10 mg PO TID-MID [facility] Last Admin: 12/25/18 11:21 Dose: 10 mg Multivit/Ca Carb/B Cmplx/FA/Prenat (Nephro-Kelly -) 1 tablet PO DAILY [facility] Last Admin: 12/25/18 11:05 Dose: 1 tablet Pantoprazole Sodium (Protonix -) 40 mg PO DAILY [facility] Last Admin: 12/25/18 11:05 Dose: 40 mg Sevelamer Carbonate (Renvela -) 1,600 mg PO TIDCM [facility] Last Admin: 12/25/18 11:04 Dose: 1,600 mg Simethicone (Mylicon -) 80 mg PO DAILY PRN PRN Reason: GAS CBC, BMP 12/23/18 05:13 12/23/18 05:13 Physical Exam S1 S2 RRR Lungs clear Abd- soft, obese No edema Rt 5 th finger --dressing in place A/P ESRD on HD -- s/p surgery -- will be following up today for dressing change -- pain control-->adequate -- midodrine tid -- iv antibiotics per ID will follow Problem List - Problems (1) Tachycardia Code(s): R00.0 - TACHYCARDIA, UNSPECIFIED (2) Cellulitis of finger Code(s): L03.019 - CELLULITIS OF UNSPECIFIED FINGER Qualifiers: Laterality: right Qualified Code(s): L03.011 - Cellulitis of right finger (3) ESRD (end stage renal disease) Code(s): N18.6 - END STAGE RENAL DISEASE (4) Wet gangrene Code(s): I96 - GANGRENE, NOT ELSEWHERE CLASSIFIED (5) Anemia associated with chronic renal failure Code(s): D63.1 - ANEMIA IN CHRONIC KIDNEY DISEASE (6) Diabetes Code(s): E11.9 - TYPE 2 DIABETES MELLITUS WITHOUT COMPLICATIONS Qualifiers: Diabetes mellitus type: type 2 Diabetes mellitus assisted insulin use: with termite control servicer use Diabetes mellitus complication status: with other specified complication Qualified Code(s): E11.69 - Type 2 diabetes mellitus with other specified complication; Z79.4 - senior care (current) use of insulin
[2018-12-25 12:47] VITALS: BMI 33.3
--- NOTE | 2018-12-25 18:03 | PN ---
Progress Note (short form) - Note Progress Note: 58 year old man with type 2 diabetes mellitus and end stage renal disease admitted with infected right hand digitalstumps Patient is feeling okay and has no new complaint Vitals BP Vital Signs (72 hours) 12/22/18 12/22/18 12/23/18 21:00 21:56 01:00 Temperature 98 F 97.7 F Pulse Rate 68 61 Respiratory 17 18 18 Rate Blood Pressure 102/63 97/51 L O2 Sat by Pulse 97 Oximetry (%) 12/23/18 12/23/18 12/23/18 06:00 08:00 09:00 Temperature 98 F Pulse Rate 66 63 Respiratory 18 17 Rate Blood Pressure 103/42 L 121/55 L O2 Sat by Pulse 96 Oximetry (%) 12/23/18 12/23/18 12/23/18 12:00 13:56 17:23 Temperature 97.8 F Pulse Rate 64 63 65 Respiratory 17 19 19 Rate Blood Pressure 93/42 L 88/37 L 91/54 L O2 Sat by Pulse Oximetry (%) 12/23/18 12/23/18 12/23/18 18:05 19:51 22:00 Temperature 98.3 F 98.5 F Pulse Rate 64 64 Respiratory 19 21 H Rate Blood Pressure 94/51 L 117/66 O2 Sat by Pulse 96 Oximetry (%) 12/24/18 12/24/18 12/24/18 02:00 04:42 06:00 Temperature 98.6 F 98.2 F Pulse Rate 59 L 62 61 Respiratory 17 18 17 Rate Blood Pressure 153/74 130/62 130/62 O2 Sat by Pulse Oximetry (%) 12/24/18 12/24/18 12/24/18 07:10 07:15 07:45 Temperature 98.5 F Pulse Rate 59 L 59 L 60 Respiratory 18 18 18 Rate Blood Pressure 131/46 L 122/59 L 119/60 O2 Sat by Pulse Oximetry (%) 12/24/18 12/24/18 12/24/18 07:50 08:15 08:45 Temperature Pulse Rate 56 L 58 L Respiratory 18 18 Rate Blood Pressure 130/65 136/59 L O2 Sat by Pulse 99 Oximetry (%) 12/24/18 12/24/18 12/24/18 09:15 09:45 10:15 Temperature Pulse Rate 57 L 59 L 58 L Respiratory 18 18 18 Rate Blood Pressure 131/61 124/56 L 122/58 L O2 Sat by Pulse Oximetry (%) 12/24/18 12/24/18 12/24/18 10:20 11:52 12:07 Temperature 98 F Pulse Rate 58 L 70 74 Respiratory 18 17 17 Rate Blood Pressure 120/54 L 146/54 L 125/58 L O2 Sat by Pulse Oximetry (%) 12/24/18 12/24/18 12/24/18 14:00 18:00 20:00 Temperature 98.2 F 98.1 F 98.4 F Pulse Rate 74 72 67 Respiratory 17 20 20 Rate Blood Pressure 119/61 128/51 L 134/58 L O2 Sat by Pulse Oximetry (%) 12/24/18 12/25/18 12/25/18 21:00 06:42 09:00 Temperature 97.2 F L Pulse Rate 72 Respiratory 20 20 Rate Blood Pressure 108/74 O2 Sat by Pulse 97 97 Oximetry (%) 12/25/18 17:26 Temperature 98.7 F Pulse Rate 63 Respiratory 20 Rate Blood Pressure 140/61 O2 Sat by Pulse Oximetry (%) Lungs: clear to auscultation Heart;; S1S2 Regular Ext: Trace bipedal edema Access: positive bruit left arm AVF Right hand with surgical dressing Labs: CBCD WBC 6.0 K/mm3 (4.0-10.0) 12/23/18 05:13 RBC 2.83 M/mm3 (4.00-5.60) L 12/23/18 05:13 Hgb 8.5 GM/dL (11.7-16.9) L 12/23/18 05:13 Hct 26.2 % (35.4-49) L 12/23/18 05:13 MCV 92.6 fl (80-96) 12/23/18 05:13 MCHC 32.3 g/dl (32.0-35.9) 12/23/18 05:13 RDW 15.6 % (11.9-15.9) 12/23/18 05:13 Plt Count 188 K/MM3 (134-434) 12/23/18 05:13 MPV 9.0 fl (7.5-11.1) 12/23/18 05:13 CMP Sodium 138 mmol/L (136-145) 12/23/18 05:13 Potassium 4.2 mmol/L (3.5-5.1) 12/23/18 05:13 Chloride 99 mmol/L (98-107) 12/23/18 05:13 Carbon Dioxide 29 mmol/L (21-32) 12/23/18 05:13 Anion Gap 10 MMOL/L (8-16) 12/23/18 05:13 BUN 48.2 mg/dL (7-18) H 12/23/18 05:13 Creatinine 7.0 mg/dL (0.55-1.3) H 12/23/18 05:13 Calcium 7.8 mg/dL (8.5-10.1) L 12/23/18 05:13 Total Bilirubin 0.4 mg/dL (0.2-1) 12/23/18 05:13 AST 25 U/L (15-37) 12/23/18 05:13 ALT 33 U/L (13-61) 12/23/18 05:13 Alkaline Phosphatase 184 U/L (45-117) H 12/23/18 05:13 Total Protein 6.7 g/dl (6.4-8.2) 12/23/18 05:13 Albumin 2.8 g/dl (3.4-5.0) L 12/23/18 05:13 A/P: 58 year old gentleman with ESRD. Patient is scheduled for hemodialysis in a.m. Discharge planning as per PMD. Problem List - Problems (1) Cellulitis of finger Code(s): L03.019 - CELLULITIS OF UNSPECIFIED FINGER Qualifiers: Laterality: right Qualified Code(s): L03.011 - Cellulitis of right finger (2) ESRD (end stage renal disease) Code(s): N18.6 - END STAGE RENAL DISEASE (3) Anemia Code(s): D64.9 - ANEMIA, UNSPECIFIED Qualifiers: Anemia type: unspecified type Qualified Code(s): D64.9 - Anemia, unspecified
[2018-12-25] MEDS: ATORVASTATIN CA 40 MG TABLET (FP) PO SCH (22:12)
[2018-12-26] MEDS: IBUPROFEN 600 MG TABLET (FP) PO PRN (06:17)
[2018-12-26] MEDS: INSULIN SLIDING SCALE (NOVOLOG) 1 VIAL SQ SCH ×4 (06:17→22:12)
[2018-12-26] MEDS: ALBUTEROL SO4 2.5/IPRATROPIUM 0.5 INH SOL 3 ML VIAL.NEB. NEB SCH ×3 (07:30→20:40)
[2018-12-26] MEDS: INSULIN (NOVOLOG MIX 70/30) 100 UNITS/ML MDV SQ SCH ×2 (07:36→17:23)
[2018-12-26] MEDS: SEVELAMER CARBONATE 800 MG TAB (FP) PO SCH ×3 (08:03→17:23)
[2018-12-26 12:10] LABS: HEMATOCRIT 26.7 % (35.4-49); HEMOGLOBIN 8.6 GM/dL (11.7-16.9); MCHC 32.3 g/dl (32.0-35.9); MEAN CELL VOLUME 92.9 fl (80-96); MEAN PLT VOLUME 9.1 fl (7.5-11.1); RBC 2.88 M/mm3 (4.00-5.60); RDW 15.8 % (11.9-15.9); WHITE BLOOD COUNT 7.2 K/mm3 (4.0-10.0)
[2018-12-26 12:16] LABS: PLATELET COUNT 211 K/MM3 (134-434)
--- NOTE | 2018-12-26 12:25 | PN ---
Progress Note, Physician - Current Medication List Current Medications: Active Medications Acetaminophen (Tylenol -) 650 mg PO Q6H PRN PRN Reason: PAIN LEVEL 1-5 Albuterol/Ipratropium (Duoneb -) 1 amp NEB RTID [facility] Last Admin: 12/26/18 07:30 Dose: 1 amp Atorvastatin Calcium (Lipitor -) 40 mg PO HS [facility] Last Admin: 12/25/18 22:12 Dose: 40 mg Calcium Carbonate (Calcium Carbonate -) 650 mg PO DAILY PRN PRN Reason: INDIGESTION Epoetin Jared (Procrit -) 10,000 unit IVPUSH AM ONE Stop: 12/26/18 06:01 Heparin Sodium (Porcine) (Heparin -) 5,000 unit SQ BID [facility] Last Admin: 12/25/18 22:11 Dose: Not Given Ceftriaxone Sodium 1 gm/ (Dextrose) 50 mls @ 100 mls/hr IVPB DAILY [facility]; Protocol Last Admin: 12/25/18 11:05 Dose: 100 mls/hr Ibuprofen (Motrin -) 600 mg PO Q6H PRN PRN Reason: PAIN LEVEL 1-5 Last Admin: 12/26/18 06:17 Dose: 600 mg Insulin Aspart (Novolog Mix 70/30 Vial) 28 units SQ BIDAC [facility] Last Admin: 12/26/18 07:36 Dose: Not Given Insulin Aspart (Novolog Vial Sliding Scale -) 1 vial SQ ACHS [facility]; Protocol Last Admin: 12/26/18 06:17 Dose: Not Given Loratadine (Claritin -) 10 mg PO DAILY [facility] Last Admin: 12/25/18 11:05 Dose: 10 mg Midodrine (Proamatine -) 10 mg PO TID-MID [facility] Last Admin: 12/25/18 18:01 Dose: 10 mg Multivit/Ca Carb/B Cmplx/FA/Prenat (Nephro-Kelly -) 1 tablet PO DAILY [facility] Last Admin: 12/25/18 11:05 Dose: 1 tablet Pantoprazole Sodium (Protonix -) 40 mg PO DAILY [facility] Last Admin: 12/25/18 11:05 Dose: 40 mg Sevelamer Carbonate (Renvela -) 1,600 mg PO TIDCM [facility] Last Admin: 12/26/18 08:03 Dose: 1,600 mg Simethicone (Mylicon -) 80 mg PO DAILY PRN PRN Reason: GAS - Objective Vital Signs: Vital Signs Temperature 97.5 F L 12/26/18 10:00 Pulse Rate 75 12/26/18 10:00 Respiratory Rate 18 12/26/18 10:00 Blood Pressure 141/86 12/26/18 10:00 O2 Sat by Pulse Oximetry (%) 97 12/25/18 21:00 Labs: CBC, BMP 12/26/18 11:30 INR, PTT INR 1.11 (0.83-1.09) H 12/18/18 16:55
[2018-12-26 12:27] LABS: CALCIUM 8.7 mg/dL (8.5-10.1); POTASSIUM 4.7 mmol/L (3.5-5.1)
--- NOTE | 2018-12-26 12:39 | PN ---
Progress Note (short form) - Note Progress Note: pt seen in dialysis comfortable no new issues Dressing was not changed yesterday-- Per Rn - today Vital Signs Temp 97.5 F L 12/26/18 10:00 Pulse 60 12/26/18 12:00 Resp 18 12/26/18 12:00 BP 140/61 12/26/18 12:00 Pulse Ox 97 12/25/18 21:00 Intake & Output 12/25/18 12/26/18 12/26/18 23:59 11:59 23:59 Intake Total 550 320 Balance 550 320 Weight 213 lb 215 lb 1.6 oz Intake: IVPB 50 Oral 500 Oral Supplement 320 Other: Voiding Method Urinal Urinal # Unmeasured Voids Void 2 2 Bowel Movement No Height 5 ft 7 in Body Mass Index (BMI) 33.3 Weight Measurement Method Built in [facility] Active Medications Acetaminophen (Tylenol -) 650 mg PO Q6H PRN PRN Reason: PAIN LEVEL 1-5 Albuterol/Ipratropium (Duoneb -) 1 amp NEB RTID [facility] Last Admin: 12/26/18 07:30 Dose: 1 amp Atorvastatin Calcium (Lipitor -) 40 mg PO HS [facility] Last Admin: 12/25/18 22:12 Dose: 40 mg Calcium Carbonate (Calcium Carbonate -) 650 mg PO DAILY PRN PRN Reason: INDIGESTION Epoetin Jared (Procrit -) 10,000 unit IVPUSH AM ONE Stop: 12/26/18 06:01 Heparin Sodium (Porcine) (Heparin -) 5,000 unit SQ BID [facility] Last Admin: 12/25/18 22:11 Dose: Not Given Ceftriaxone Sodium 1 gm/ (Dextrose) 50 mls @ 100 mls/hr IVPB DAILY [facility]; Protocol Last Admin: 12/25/18 11:05 Dose: 100 mls/hr Ibuprofen (Motrin -) 600 mg PO Q6H PRN PRN Reason: PAIN LEVEL 1-5 Last Admin: 12/26/18 06:17 Dose: 600 mg Insulin Aspart (Novolog Mix 70/30 Vial) 28 units SQ BIDAC [facility] Last Admin: 12/26/18 07:36 Dose: Not Given Insulin Aspart (Novolog Vial Sliding Scale -) 1 vial SQ ACHS [facility]; Protocol Last Admin: 12/26/18 06:17 Dose: Not Given Loratadine (Claritin -) 10 mg PO DAILY [facility] Last Admin: 12/25/18 11:05 Dose: 10 mg Midodrine (Proamatine -) 10 mg PO TID-MID [facility] Last Admin: 12/25/18 18:01 Dose: 10 mg Multivit/Ca Carb/B Cmplx/FA/Prenat (Nephro-Kelly -) 1 tablet PO DAILY [facility] Last Admin: 12/25/18 11:05 Dose: 1 tablet Pantoprazole Sodium (Protonix -) 40 mg PO DAILY [facility] Last Admin: 12/25/18 11:05 Dose: 40 mg Sevelamer Carbonate (Renvela -) 1,600 mg PO TIDCM [facility] Last Admin: 12/26/18 08:03 Dose: 1,600 mg Simethicone (Mylicon -) 80 mg PO DAILY PRN PRN Reason: GAS CBC, BMP 12/26/18 11:30 12/26/18 11:30 Physical Exam S1 S2 RRR Lungs clear Abd- soft, obese No edema Rt 5 th finger --dressing in place A/P ESRD on HD -- s/p surgery -- will be following up today for dressing change -- pain control-->adequate -- midodrine tid -- iv antibiotics per ID will follow Discussed with Dr. 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
[2018-12-26 12:41] LABS: CREATININE 9.1 mg/dL (0.55-1.3)
[2018-12-26] MEDS: MIDODRINE HCL 5 MG TABLET PO SCH ×3 (12:50→17:23)
[2018-12-26] MEDS ORDERED: EPOETIN ALFA 10,000 UNIT/1 ML VIAL IVPUSH ONE (13:00)
[2018-12-26] MEDS ORDERED: cefTRIAXone SODIUM 1 GM VIAL ONE (14:30)
[2018-12-26] MEDS ORDERED: DEXTROSE 5%-WATER - 50 ML IVPB ONE (14:31)
[2018-12-26] MEDS: VITAMIN B COMP W-C 1 EA TABLET PO SCH (14:35)
[2018-12-26] MEDS: PANTOPRAZOLE 40 MG TABLET (FP) PO SCH (14:35)
[2018-12-26] MEDS: HEPARIN NA (PORCINE) 5,000 UNITS/ML 1ML VIAL SQ SCH ×2 (14:36→22:11)
[2018-12-26] MEDS: SIMETHICONE 80 MG TAB.CHEW (FP) PO PRN (14:36)
[2018-12-26] MEDS: LORATADINE 10 MG TABLET PO SCH (14:36)
[2018-12-26] MEDS: CEFTRIAXONE 1 GM in DEXTROSE 5%-WATER - 50 ML IVPB SCH (14:36)
[2018-12-26 15:22] LABS: CREATININE 3.3 mg/dL (0.55-1.3)
[2018-12-26] MEDS ORDERED: INSULIN (NOVOLOG) ASPART 100 UNITS/ML 10ML VIAL ONE (17:07)
[2018-12-26] MEDS: ATORVASTATIN CA 40 MG TABLET (FP) PO SCH (22:11)
[2018-12-27] MEDS ORDERED: INSULIN (NOVOLOG MIX 70/30) 100 UNITS/ML MDV SQ ONE ×2 (07:02→07:21)
[2018-12-27] MEDS: INSULIN SLIDING SCALE (NOVOLOG) 1 VIAL SQ SCH ×4 (07:04→21:49)
[2018-12-27] MEDS: INSULIN (NOVOLOG MIX 70/30) 100 UNITS/ML MDV SQ SCH ×2 (07:05→17:49)
[2018-12-27] MEDS ORDERED: INSULIN (NOVOLOG) ASPART 100 UNITS/ML 10ML VIAL ONE ×2 (07:21→17:09)
[2018-12-27] MEDS ORDERED: INSULIN (LEVEMIR) 100 UNITS/ML UNITS SQ ONE (07:22)
[2018-12-27] MEDS: ALBUTEROL SO4 2.5/IPRATROPIUM 0.5 INH SOL 3 ML VIAL.NEB. NEB SCH ×3 (07:40→19:55)
[2018-12-27] MEDS: SEVELAMER CARBONATE 800 MG TAB (FP) PO SCH ×3 (08:55→17:49)
[2018-12-27] MEDS ORDERED: DEXTROSE 5%-WATER - 50 ML IVPB ONE (10:56)
[2018-12-27] MEDS ORDERED: cefTRIAXone SODIUM 1 GM VIAL ONE (10:56)
[2018-12-27] MEDS ORDERED: PT OWN MED DRAWER 7, Y5N ONE (10:56)
[2018-12-27] MEDS: CEFTRIAXONE 1 GM in DEXTROSE 5%-WATER - 50 ML IVPB SCH (10:59)
[2018-12-27] MEDS: VITAMIN B COMP W-C 1 EA TABLET PO SCH (11:00)
[2018-12-27] MEDS: LORATADINE 10 MG TABLET PO SCH (11:00)
[2018-12-27] MEDS: IBUPROFEN 600 MG TABLET (FP) PO PRN (11:00)
[2018-12-27] MEDS: MIDODRINE HCL 5 MG TABLET PO SCH ×3 (11:00→17:48)
[2018-12-27] MEDS: PANTOPRAZOLE 40 MG TABLET (FP) PO SCH (11:00)
[2018-12-27] MEDS: HEPARIN NA (PORCINE) 5,000 UNITS/ML 1ML VIAL SQ SCH ×3 (11:02→21:49)
--- NOTE | 2018-12-27 13:33 | PN ---
Progress Note (short form) - Note Progress Note: pt seen/ examined comfortable except hand hurts. Discussed with Dr. Trujillo--Says spoke with Dr. Valencia-- will follow Vital Signs Temp 97.6 F 12/27/18 06:00 Pulse 64 12/27/18 06:00 Resp 18 12/27/18 06:00 BP 125/57 L 12/27/18 06:00 Pulse Ox 97 12/26/18 21:00 Intake & Output 12/26/18 12/27/18 12/27/18 23:59 11:59 23:59 Intake Total 350 200 Balance 350 200 Weight 209 lb 12.8 oz Intake: IVPB 50 Oral 300 200 Other: Voiding Method Toilet # Unmeasured Voids Void 1 Bowel Movement No Weight Measurement Method Built in [facility] Active Medications Acetaminophen (Tylenol -) 650 mg PO Q6H PRN PRN Reason: PAIN LEVEL 1-5 Albuterol/Ipratropium (Duoneb -) 1 amp NEB RTID [facility] Last Admin: 12/27/18 07:40 Dose: 1 amp Atorvastatin Calcium (Lipitor -) 40 mg PO HS [facility] Last Admin: 12/26/18 22:11 Dose: 40 mg Calcium Carbonate (Calcium Carbonate -) 650 mg PO DAILY PRN PRN Reason: INDIGESTION Heparin Sodium (Porcine) (Heparin -) 5,000 unit SQ BID [facility] Last Admin: 12/27/18 11:02 Dose: Not Given Ceftriaxone Sodium 1 gm/ (Dextrose) 50 mls @ 100 mls/hr IVPB DAILY [facility]; Protocol Last Admin: 12/27/18 10:59 Dose: 100 mls/hr Ibuprofen (Motrin -) 600 mg PO Q6H PRN PRN Reason: PAIN LEVEL 1-5 Last Admin: 12/27/18 11:00 Dose: 600 mg Insulin Aspart (Novolog Mix 70/30 Vial) 28 units SQ BIDAC [facility] Last Admin: 12/27/18 07:05 Dose: 28 unit Insulin Aspart (Novolog Vial Sliding Scale -) 1 vial SQ ACHS [facility]; Protocol Last Admin: 12/27/18 11:30 Dose: 2 units Loratadine (Claritin -) 10 mg PO DAILY [facility] Last Admin: 12/27/18 11:00 Dose: 10 mg Midodrine (Proamatine -) 10 mg PO TID-MID [facility] Last Admin: 12/27/18 11:00 Dose: 10 mg Multivit/Ca Carb/B Cmplx/FA/Prenat (Nephro-Kelly -) 1 tablet PO DAILY [facility] Last Admin: 12/27/18 11:00 Dose: 1 tablet Pantoprazole Sodium (Protonix -) 40 mg PO DAILY [facility] Last Admin: 12/27/18 11:00 Dose: 40 mg Sevelamer Carbonate (Renvela -) 1,600 mg PO TIDCM [facility] Last Admin: 12/27/18 13:09 Dose: 1,600 mg Simethicone (Mylicon -) 80 mg PO DAILY PRN PRN Reason: GAS Last Admin: 12/26/18 14:36 Dose: 80 mg CBC, BMP 12/26/18 11:30 12/26/18 14:25 Physical Exam S1 S2 RRR Lungs clear Abd- soft, obese No edema Rt 5 th finger --dressing in place A/P ESRD on HD -- s/p surgery -- will be following up -- pain control-->adequate -- midodrine tid -- iv antibiotics per ID will follow Discussed with Dr. Villeda also yesterday. Problem List - Problems (1) Tachycardia Code(s): R00.0 - TACHYCARDIA, UNSPECIFIED (2) Cellulitis of finger Code(s): L03.019 - CELLULITIS OF UNSPECIFIED FINGER Qualifiers: Laterality: right Qualified Code(s): L03.011 - Cellulitis of right finger (3) ESRD (end stage renal disease) Code(s): N18.6 - END STAGE RENAL DISEASE (4) Wet gangrene Code(s): I96 - GANGRENE, NOT ELSEWHERE CLASSIFIED (5) Anemia associated with chronic renal failure Code(s): D63.1 - ANEMIA IN CHRONIC KIDNEY DISEASE (6) Diabetes Code(s): E11.9 - TYPE 2 DIABETES MELLITUS WITHOUT COMPLICATIONS Qualifiers: Diabetes mellitus type: type 2 Diabetes mellitus shelter insulin use: with shelter use Diabetes mellitus complication status: with other specified complication Qualified Code(s): E11.69 - Type 2 diabetes mellitus with other specified complication; Z79.4 - [facility] (current) use of insulin
[2018-12-27] MEDS: ATORVASTATIN CA 40 MG TABLET (FP) PO SCH (21:45)
[2018-12-28] MEDS: INSULIN SLIDING SCALE (NOVOLOG) 1 VIAL SQ SCH ×4 (06:39→21:41)
[2018-12-28] MEDS: INSULIN (NOVOLOG MIX 70/30) 100 UNITS/ML MDV SQ SCH ×2 (06:40→16:51)
[2018-12-28] MEDS: ALBUTEROL SO4 2.5/IPRATROPIUM 0.5 INH SOL 3 ML VIAL.NEB. NEB SCH ×3 (07:30→20:32)
--- NOTE | 2018-12-28 08:09 | PN ---
Progress Note, Physician History of Present Illness: patient stable no new issues - Current Medication List Current Medications: Active Medications Acetaminophen (Tylenol -) 650 mg PO Q6H PRN PRN Reason: PAIN LEVEL 1-5 Last Admin: 12/27/18 17:46 Dose: 650 mg Albuterol/Ipratropium (Duoneb -) 1 amp NEB RTID [facility] Last Admin: 12/28/18 07:30 Dose: 1 amp Atorvastatin Calcium (Lipitor -) 40 mg PO HS [facility] Last Admin: 12/27/18 21:45 Dose: 40 mg Calcium Carbonate (Calcium Carbonate -) 650 mg PO DAILY PRN PRN Reason: INDIGESTION Heparin Sodium (Porcine) (Heparin -) 5,000 unit SQ BID [facility] Last Admin: 12/27/18 21:49 Dose: Not Given Ceftriaxone Sodium 1 gm/ (Dextrose) 50 mls @ 100 mls/hr IVPB DAILY [facility]; Protocol Last Admin: 12/27/18 10:59 Dose: 100 mls/hr Ibuprofen (Motrin -) 600 mg PO Q6H PRN PRN Reason: PAIN LEVEL 1-5 Last Admin: 12/27/18 11:00 Dose: 600 mg Insulin Aspart (Novolog Mix 70/30 Vial) 28 units SQ BIDAC [facility] Last Admin: 12/28/18 06:40 Dose: 28 units Insulin Aspart (Novolog Vial Sliding Scale -) 1 vial SQ ACHS [facility]; Protocol Last Admin: 12/28/18 06:39 Dose: 4 units Loratadine (Claritin -) 10 mg PO DAILY [facility] Last Admin: 12/27/18 11:00 Dose: 10 mg Midodrine (Proamatine -) 10 mg PO TID-MID [facility] Last Admin: 12/27/18 17:48 Dose: 10 mg Multivit/Ca Carb/B Cmplx/FA/Prenat (Nephro-Kelly -) 1 tablet PO DAILY [facility] Last Admin: 12/27/18 11:00 Dose: 1 tablet Pantoprazole Sodium (Protonix -) 40 mg PO DAILY [facility] Last Admin: 12/27/18 11:00 Dose: 40 mg Sevelamer Carbonate (Renvela -) 1,600 mg PO TIDCM [facility] Last Admin: 12/27/18 17:49 Dose: 1,600 mg Simethicone (Mylicon -) 80 mg PO DAILY PRN PRN Reason: GAS Last Admin: 12/26/18 14:36 Dose: 80 mg - Objective Vital Signs: Vital Signs Temperature 97.8 F 12/28/18 06:53 Pulse Rate 58 L 12/28/18 06:53 Respiratory Rate 20 12/28/18 06:53 Blood Pressure 124/56 L 12/28/18 06:53 O2 Sat by Pulse Oximetry (%) 97 12/26/18 21:00 Constitutional: Yes: No Distress, Calm Cardiovascular: Yes: Regular Rate and Rhythm Respiratory: Yes: Regular, CTA Bilaterally Gastrointestinal: Yes: Normal Bowel Sounds, Soft Musculoskeletal: Yes: Other Wound/Incision: Yes: Dressing Dry and Intact Neurological: Yes: Alert, Oriented Psychiatric: Yes: Alert, Oriented Labs: CBC, BMP 12/26/18 11:30 12/26/18 14:25 INR, PTT INR 1.11 (0.83-1.09) H 12/18/18 16:55 Assessment/Plan Problem List - Problems (1) Cellulitis of finger Code(s): L03.019 - CELLULITIS OF UNSPECIFIED FINGER Qualifiers: Laterality: right Qualified Code(s): L03.011 - Cellulitis of right finger (2) ESRD (end stage renal disease) Code(s): N18.6 - END STAGE RENAL DISEASE (3) Wet gangrene Code(s): I96 - GANGRENE, NOT ELSEWHERE CLASSIFIED (4) Anemia Code(s): D64.9 - ANEMIA, UNSPECIFIED Qualifiers: Anemia type: unspecified type Qualified Code(s): D64.9 - Anemia, unspecified (5) GERD (gastroesophageal reflux disease) Code(s): K21.9 - GASTRO-ESOPHAGEAL REFLUX DISEASE WITHOUT ESOPHAGITIS Qualifiers: Esophagitis presence: esophagitis presence not specified Qualified Code(s) : K21.9 - Gastro-esophageal reflux disease without esophagitis (6) HTN (hypertension) Code(s): I10 - ESSENTIAL (PRIMARY) HYPERTENSION Qualifiers: Hypertension type: essential hypertension Qualified Code(s): I10 - Essential (primary) hypertension (7) Peptic ulcer disease Code(s): K27.9 - PEPTIC ULC, SITE UNSP, UNSP AC OR CHR, W/O HEMOR OR PERF (8) S/P CABG (coronary artery bypass graft) Code(s): Z95.1 - PRESENCE OF AORTOCORONARY BYPASS GRAFT (9) Upper GI bleed Code(s): K92.2 - GASTROINTESTINAL HEMORRHAGE, UNSPECIFIED Assessment/Plan Rt 5th digit gangrene r/o OM s/p revision of amputation POD#1 Rt hand cellulitis Transient hypotension Uncontrolled DM ESRD on HD CAD s/p CABG PUD s/p Rt 3rd digit/partial Lt 5th digit amputations plan continue abx if bone not involved can switch to po wound care rest as per the team
[2018-12-28] MEDS ORDERED: cefTRIAXone SODIUM 1 GM VIAL ONE (09:53)
[2018-12-28] MEDS ORDERED: DEXTROSE 5%-WATER - 50 ML IVPB ONE (09:53)
[2018-12-28] MEDS: LORATADINE 10 MG TABLET PO SCH (09:57)
[2018-12-28] MEDS: PANTOPRAZOLE 40 MG TABLET (FP) PO SCH (09:57)
[2018-12-28] MEDS: HEPARIN NA (PORCINE) 5,000 UNITS/ML 1ML VIAL SQ SCH ×3 (09:57→21:34)
[2018-12-28] MEDS: VITAMIN B COMP W-C 1 EA TABLET PO SCH (09:57)
[2018-12-28] MEDS: MIDODRINE HCL 5 MG TABLET PO SCH ×3 (09:57→17:37)
[2018-12-28] MEDS: CEFTRIAXONE 1 GM in DEXTROSE 5%-WATER - 50 ML IVPB SCH (10:00)
[2018-12-28] MEDS: SEVELAMER CARBONATE 800 MG TAB (FP) PO SCH ×3 (10:00→17:37)
[2018-12-28] MEDS ORDERED: INSULIN (NOVOLOG) ASPART 100 UNITS/ML 10ML VIAL ONE (11:23)
--- NOTE | 2018-12-28 11:27 | PN ---
Progress Note, Physician Chief Complaint: no CP or SOB C/o no BM x 3 days and mild diffuse abdominal discomfort, not pain. - Current Medication List Current Medications: Active Medications Acetaminophen (Tylenol -) 650 mg PO Q6H PRN PRN Reason: PAIN LEVEL 1-5 Last Admin: 12/27/18 17:46 Dose: 650 mg Albuterol/Ipratropium (Duoneb -) 1 amp NEB RTID [facility] Last Admin: 12/28/18 07:30 Dose: 1 amp Atorvastatin Calcium (Lipitor -) 40 mg PO HS [facility] Last Admin: 12/27/18 21:45 Dose: 40 mg Calcium Carbonate (Calcium Carbonate -) 650 mg PO DAILY PRN PRN Reason: INDIGESTION Heparin Sodium (Porcine) (Heparin -) 5,000 unit SQ BID [facility] Last Admin: 12/28/18 10:07 Dose: Not Given Ceftriaxone Sodium 1 gm/ (Dextrose) 50 mls @ 100 mls/hr IVPB DAILY [facility]; Protocol Last Admin: 12/28/18 10:00 Dose: 100 mls/hr Ibuprofen (Motrin -) 600 mg PO Q6H PRN PRN Reason: PAIN LEVEL 1-5 Last Admin: 12/27/18 11:00 Dose: 600 mg Insulin Aspart (Novolog Mix 70/30 Vial) 28 units SQ BIDAC [facility] Last Admin: 12/28/18 06:40 Dose: 28 units Insulin Aspart (Novolog Vial Sliding Scale -) 1 vial SQ ACHS [facility]; Protocol Last Admin: 12/28/18 06:39 Dose: 4 units Loratadine (Claritin -) 10 mg PO DAILY [facility] Last Admin: 12/28/18 09:57 Dose: 10 mg Midodrine (Proamatine -) 10 mg PO TID-MID [facility] Last Admin: 12/28/18 09:57 Dose: 10 mg Multivit/Ca Carb/B Cmplx/FA/Prenat (Nephro-Kelly -) 1 tablet PO DAILY [facility] Last Admin: 12/28/18 09:57 Dose: 1 tablet Pantoprazole Sodium (Protonix -) 40 mg PO DAILY [facility] Last Admin: 12/28/18 09:57 Dose: 40 mg Sevelamer Carbonate (Renvela -) 1,600 mg PO TIDCM [facility] Last Admin: 12/28/18 10:00 Dose: 1,600 mg Simethicone (Mylicon -) 80 mg PO DAILY PRN PRN Reason: GAS Last Admin: 12/26/18 14:36 Dose: 80 mg - Objective Vital Signs: Vital Signs Temperature 97.8 F 12/28/18 06:53 Pulse Rate 58 L 12/28/18 06:53 Respiratory Rate 20 12/28/18 06:53 Blood Pressure 124/56 L 12/28/18 06:53 O2 Sat by Pulse Oximetry (%) 97 12/26/18 21:00 Constitutional: Yes: No Distress Cardiovascular: Yes: Regular Rate and Rhythm Respiratory: Yes: CTA Bilaterally Gastrointestinal: Yes: Soft (distended, decreased bowel sounds, nontender) Edema: No Neurological: Yes: Alert, Oriented Labs: CBC, BMP 12/26/18 11:30 12/26/18 14:25 INR, PTT INR 1.11 (0.83-1.09) H 12/18/18 16:55 Assessment/Plan Assessment/Plan tele: sinus, PVCs EKG: sinus, nl intervals, no ischemic changes 58M h/o ESRD on HD, DM, PUD, CAD s/p CABG 08/2017 and prior stents, multiple prior amputations p/w finger wounds, s/p amputation here with tachycardia, hypotension post op: Tachycardia, hypotension: - hypotension, tachycardia improved - tachycardia may have been multifactorial - post op pain, infection, anemia - echo nl LV function, nl RV - continue midodrine CAD s/p CABG: - cont statin, restart aspirin when able per surgery S/P finger amputations: - manage per surgery DM: - manage per primary Constipation/Abdominal distension: -Check flat and upright film, will d/w PMD
--- NOTE | 2018-12-28 11:39 | PN ---
Progress Note (short form) - Note Progress Note: 58 year old gentleman with end stage renal disease admitted with infected right hand 4th and 5th digits, s/p surgery. Patient reports some discomfort in the right hand.Appears eager to go home to continue outpatient antibiotic administration at dialysis Vitals Vital Signs (72 hours) 12/25/18 12/25/18 12/25/18 17:26 21:00 22:05 Temperature 98.7 F 97.9 F Pulse Rate 63 61 Respiratory 20 20 20 Rate Blood Pressure 140/61 137/63 O2 Sat by Pulse 97 Oximetry (%) 12/26/18 12/26/18 12/26/18 06:00 09:00 10:00 Temperature 97.4 F L 97.5 F L Pulse Rate 62 75 Respiratory 20 18 Rate Blood Pressure 150/89 141/86 O2 Sat by Pulse 97 Oximetry (%) 12/26/18 12/26/18 12/26/18 10:20 10:30 11:00 Temperature Pulse Rate 69 67 60 Respiratory 18 18 18 Rate Blood Pressure 150/68 154/69 131/61 O2 Sat by Pulse Oximetry (%) 12/26/18 12/26/18 12/26/18 11:30 12:00 12:30 Temperature Pulse Rate 60 60 60 Respiratory 18 18 18 Rate Blood Pressure 141/62 140/61 140/60 O2 Sat by Pulse Oximetry (%) 12/26/18 12/26/18 12/26/18 13:00 13:30 13:50 Temperature Pulse Rate 60 60 67 Respiratory 18 18 18 Rate Blood Pressure 128/68 141/71 149/69 O2 Sat by Pulse Oximetry (%) 12/26/18 12/26/18 12/26/18 15:57 17:29 20:32 Temperature 98.3 F 98.6 F 98 F Pulse Rate 73 66 66 Respiratory 18 18 18 Rate Blood Pressure 125/88 159/78 152/75 O2 Sat by Pulse Oximetry (%) 12/26/18 12/27/18 12/27/18 21:00 06:00 09:00 Temperature 97.6 F Pulse Rate 64 Respiratory 18 20 Rate Blood Pressure 125/57 L O2 Sat by Pulse 97 Oximetry (%) 12/27/18 12/27/18 12/27/18 10:00 14:00 18:00 Temperature 97.8 F 97.9 F 98.4 F Pulse Rate 78 68 65 Respiratory 20 18 20 Rate Blood Pressure 100/50 L 126/68 130/70 O2 Sat by Pulse Oximetry (%) 12/27/18 12/28/18 21:28 06:53 Temperature 97.8 F 97.8 F Pulse Rate 63 58 L Respiratory 20 20 Rate Blood Pressure 138/60 124/56 L O2 Sat by Pulse Oximetry (%) Lungs; clear to auscultation Heart: S1 S2 regular Abd: Full, soft and non-tender Ext: Trace edema Right hand with surgical dressing Access: positive bruit left arm AVF LABS: CBCD WBC 7.2 K/mm3 (4.0-10.0) 12/26/18 11:30 RBC 2.88 M/mm3 (4.00-5.60) L 12/26/18 11:30 Hgb 8.6 GM/dL (11.7-16.9) L 12/26/18 11:30 Hct 26.7 % (35.4-49) L 12/26/18 11:30 MCV 92.9 fl (80-96) 12/26/18 11:30 MCHC 32.3 g/dl (32.0-35.9) 12/26/18 11:30 RDW 15.8 % (11.9-15.9) 12/26/18 11:30 Plt Count 211 K/MM3 (134-434) 12/26/18 11:30 MPV 9.1 fl (7.5-11.1) 12/26/18 11:30 CMP Sodium 138 mmol/L (136-145) 12/26/18 11:30 Potassium 4.7 mmol/L (3.5-5.1) 12/26/18 11:30 Chloride 98 mmol/L (98-107) 12/26/18 11:30 Carbon Dioxide 27 mmol/L (21-32) 12/26/18 11:30 Anion Gap 13 MMOL/L (8-16) 12/26/18 11:30 BUN 22.0 mg/dL (7-18) H 12/26/18 14:25 Creatinine 3.3 mg/dL (0.55-1.3) H 12/26/18 14:25 Calcium 8.7 mg/dL (8.5-10.1) 12/26/18 11:30 Total Bilirubin 0.4 mg/dL (0.2-1) 12/23/18 05:13 AST 25 U/L (15-37) 12/23/18 05:13 ALT 33 U/L (13-61) 12/23/18 05:13 Alkaline Phosphatase 184 U/L (45-117) H 12/23/18 05:13 Total Protein 6.7 g/dl (6.4-8.2) 12/23/18 05:13 Albumin 2.8 g/dl (3.4-5.0) L 12/23/18 05:13 A/P: 58 year old man with ESRD. Patient is tentatively for hempdialysis in a.m. Epogen 10,000 units IVP on dialysis. Discharge planning as per PMD and Surgical team. Problem List - Problems (1) Cellulitis of finger Code(s): L03.019 - CELLULITIS OF UNSPECIFIED FINGER Qualifiers: Laterality: right Qualified Code(s): L03.011 - Cellulitis of right finger (2) ESRD (end stage renal disease) Code(s): N18.6 - END STAGE RENAL DISEASE (3) Anemia Code(s): D64.9 - ANEMIA, UNSPECIFIED Qualifiers: Anemia type: unspecified type Qualified Code(s): D64.9 - Anemia, unspecified
--- NOTE | 2018-12-28 12:37 | PN ---
Progress Note (short form) - Note Progress Note: pt seen / examined comfortable except constipation issues and hand pain i/d f/u noted and discussed with Dr. Villeda -- He is not sure yet when to switch to po abx -regarding bone involvement-- awaiting hand surgeon input. Vital Signs Temp 97.6 F 12/28/18 10:00 Pulse 66 12/28/18 10:00 Resp 20 12/28/18 10:00 BP 128/68 12/28/18 10:00 Pulse Ox 97 12/26/18 21:00 Intake & Output 12/27/18 12/28/18 12/28/18 23:59 11:59 23:59 Intake Total 300 350 Balance 300 350 Weight 213 lb 6 oz Intake: IVPB 100 Oral 200 350 Other: Voiding Method Toilet # Unmeasured Voids Void 2 1 Bowel Movement No Weight Measurement [facility] Active Medications Acetaminophen (Tylenol -) 650 mg PO Q6H PRN PRN Reason: PAIN LEVEL 1-5 Last Admin: 12/27/18 17:46 Dose: 650 mg Albuterol/Ipratropium (Duoneb -) 1 amp NEB RTID [facility] Last Admin: 12/28/18 07:30 Dose: 1 amp Atorvastatin Calcium (Lipitor -) 40 mg PO HS [facility] Last Admin: 12/27/18 21:45 Dose: 40 mg Calcium Carbonate (Calcium Carbonate -) 650 mg PO DAILY PRN PRN Reason: INDIGESTION Docusate Sodium (Colace -) 100 mg PO TID [facility] Epoetin Jared (Procrit -) 10,000 unit IVPUSH ONCE ONE Stop: 12/29/18 07:01 Heparin Sodium (Porcine) (Heparin -) 5,000 unit SQ BID [facility] Last Admin: 12/28/18 10:07 Dose: Not Given Ceftriaxone Sodium 1 gm/ (Dextrose) 50 mls @ 100 mls/hr IVPB DAILY [facility]; Protocol Last Admin: 12/28/18 10:00 Dose: 100 mls/hr Ibuprofen (Motrin -) 600 mg PO Q6H PRN PRN Reason: PAIN LEVEL 1-5 Last Admin: 12/27/18 11:00 Dose: 600 mg Insulin Aspart (Novolog Mix 70/30 Vial) 28 units SQ BIDAC [facility] Last Admin: 12/28/18 06:40 Dose: 28 units Insulin Aspart (Novolog Vial Sliding Scale -) 1 vial SQ ACHS [facility]; Protocol Last Admin: 12/28/18 11:44 Dose: 2 units Loratadine (Claritin -) 10 mg PO DAILY [facility] Last Admin: 12/28/18 09:57 Dose: 10 mg Midodrine (Proamatine -) 10 mg PO TID-MID [facility] Last Admin: 12/28/18 09:57 Dose: 10 mg Multivit/Ca Carb/B Cmplx/FA/Prenat (Nephro-Kelly -) 1 tablet PO DAILY [facility] Last Admin: 12/28/18 09:57 Dose: 1 tablet Pantoprazole Sodium (Protonix -) 40 mg PO DAILY [facility] Last Admin: 12/28/18 09:57 Dose: 40 mg Sevelamer Carbonate (Renvela -) 1,600 mg PO TIDCM [facility] Last Admin: 12/28/18 10:00 Dose: 1,600 mg Simethicone (Mylicon -) 80 mg PO DAILY PRN PRN Reason: GAS Last Admin: 12/26/18 14:36 Dose: 80 mg CBC, BMP 12/26/18 11:30 12/26/18 14:25 Physical Exam S1 S2 RRR Lungs clear Abd- soft, slightly distended. No edema Rt 5 th finger --dressing in place A/P ESRD on HD -- s/p surgery -- will be following up -- pain control-->adequate -- midodrine tid -- iv antibiotics per ID-- as mentioned above - stool softners - agree with fua-- - will follow - surgery to follow Problem List - Problems (1) Tachycardia Code(s): R00.0 - TACHYCARDIA, UNSPECIFIED (2) Cellulitis of finger Code(s): L03.019 - CELLULITIS OF UNSPECIFIED FINGER Qualifiers: Laterality: right Qualified Code(s): L03.011 - Cellulitis of right finger (3) ESRD (end stage renal disease) Code(s): N18.6 - END STAGE RENAL DISEASE (4) Wet gangrene Code(s): I96 - GANGRENE, NOT ELSEWHERE CLASSIFIED (5) Anemia associated with chronic renal failure Code(s): D63.1 - ANEMIA IN CHRONIC KIDNEY DISEASE (6) Diabetes Code(s): E11.9 - TYPE 2 DIABETES MELLITUS WITHOUT COMPLICATIONS Qualifiers: Diabetes mellitus type: type 2 Diabetes mellitus jail insulin use: with jail use Diabetes mellitus complication status: with other specified complication Qualified Code(s): E11.69 - Type 2 diabetes mellitus with other specified complication; Z79.4 - [facility] (current) use of insulin
--- NOTE | 2018-12-28 13:36 | PN ---
Progress Note, Physician Chief Complaint: right hand digit infection History of Present Illness: 58 yo RHD male PMH ESRD (HD on , , ), DM, PUD, prior bleeding gastric ulcers found on EGD, mesenteric ischemia, CAD s/p CABG august 2017, stents, hx of multiple amputations of right hand fingers. He has been admitted for observation in telemetry after a transient hemodynamic instability in the perioperative period. Now stable - Current Medication List Current Medications: Active Medications Acetaminophen (Tylenol -) 650 mg PO Q6H PRN PRN Reason: PAIN LEVEL 1-5 Last Admin: 12/27/18 17:46 Dose: 650 mg Albuterol/Ipratropium (Duoneb -) 1 amp NEB RTID [facility] Last Admin: 12/28/18 07:30 Dose: 1 amp Atorvastatin Calcium (Lipitor -) 40 mg PO HS [facility] Last Admin: 12/27/18 21:45 Dose: 40 mg Calcium Carbonate (Calcium Carbonate -) 650 mg PO DAILY PRN PRN Reason: INDIGESTION Docusate Sodium (Colace -) 100 mg PO TID [facility] Epoetin Jared (Procrit -) 10,000 unit IVPUSH ONCE ONE Stop: 12/29/18 07:01 Heparin Sodium (Porcine) (Heparin -) 5,000 unit SQ BID [facility] Last Admin: 12/28/18 10:07 Dose: Not Given Ceftriaxone Sodium 1 gm/ (Dextrose) 50 mls @ 100 mls/hr IVPB DAILY [facility]; Protocol Last Admin: 12/28/18 10:00 Dose: 100 mls/hr Ibuprofen (Motrin -) 600 mg PO Q6H PRN PRN Reason: PAIN LEVEL 1-5 Last Admin: 12/27/18 11:00 Dose: 600 mg Insulin Aspart (Novolog Mix 70/30 Vial) 28 units SQ BIDAC [facility] Last Admin: 12/28/18 06:40 Dose: 28 units Insulin Aspart (Novolog Vial Sliding Scale -) 1 vial SQ ACHS [facility]; Protocol Last Admin: 12/28/18 11:44 Dose: 2 units Loratadine (Claritin -) 10 mg PO DAILY [facility] Last Admin: 12/28/18 09:57 Dose: 10 mg Midodrine (Proamatine -) 10 mg PO TID-MID [facility] Last Admin: 12/28/18 09:57 Dose: 10 mg Multivit/Ca Carb/B Cmplx/FA/Prenat (Nephro-Kelly -) 1 tablet PO DAILY [facility] Last Admin: 12/28/18 09:57 Dose: 1 tablet Pantoprazole Sodium (Protonix -) 40 mg PO DAILY [facility] Last Admin: 12/28/18 09:57 Dose: 40 mg Sevelamer Carbonate (Renvela -) 1,600 mg PO TIDCM [facility] Last Admin: 12/28/18 10:00 Dose: 1,600 mg Simethicone (Mylicon -) 80 mg PO DAILY PRN PRN Reason: GAS Last Admin: 12/26/18 14:36 Dose: 80 mg - Objective Vital Signs: Vital Signs Temperature 97.6 F 12/28/18 10:00 Pulse Rate 66 12/28/18 10:00 Respiratory Rate 20 12/28/18 10:00 Blood Pressure 128/68 12/28/18 10:00 O2 Sat by Pulse Oximetry (%) 97 12/26/18 21:00 Vital Signs Period Temp Pulse Resp BP Sys/Harris Pulse Ox Last 24 Hr 97.6 F-98.4 F 58-68 18-20 124-138/56-70 Constitutional: Yes: Well Nourished, No Distress, Calm Eyes: Yes: Conjunctiva Clear, EOM Intact HENT: Yes: Atraumatic, Normocephalic Neck: Yes: Supple, Trachea Midline Cardiovascular: Yes: Regular Rate and Rhythm, S1, S2 Respiratory: Yes: Regular, CTA Bilaterally Gastrointestinal: Yes: Normal Bowel Sounds, Soft. No: Tenderness ...Rectal Exam: Yes: Deferred Genitourinary: No: CVA Tenderness - Left, CVA Tenderness - Right Breast(s): No: Mass, Skin Changes Extremities: Yes: Amputation (multiple) Edema: No Peripheral Pulses WNL: Yes Peripheral Pulses: Left Radial: 2+, Right Radial: 2+, Left Doralis Pedis: 2+, Right Dorsalis Pedis: 2+, Left Femoral: 2+, Right Femoral: 2+ Wound/Incision: Yes: Clean/Dry, Well Approximated, Sutures Intact, Draining ( center of the staple line. seropurulent material.) Neurological: Yes: Alert, Oriented Psychiatric: Yes: Alert, Oriented Labs: CBC, BMP 12/26/18 11:30 12/26/18 14:25 INR, PTT INR 1.11 (0.83-1.09) H 12/18/18 16:55 Problem List - Problems (1) Wet gangrene Assessment/Plan: 58yo male RHD with s/p multiple digital amputations for gangrene now with Right small finger/ ulanr digit wet gangrene POD#5 s/p Revision amputation or right ulnar digit wet gangrene/small finger. Patient reports no pain at the site. Wound is slow to heal and has a small dehisance in the center of the staple line. Will follow closely in clinic. Medical management IV antibiotics f/u culture from OR - Delayed submission glycemeic control Dressing removed and replaced with a bandaid Discharge at the discretion of the primary team Code(s): I96 - GANGRENE, NOT ELSEWHERE CLASSIFIED (2) ESRD (end stage renal disease) Code(s): N18.6 - END STAGE RENAL DISEASE (3) Diabetes Code(s): E11.9 - TYPE 2 DIABETES MELLITUS WITHOUT COMPLICATIONS Qualifiers: Diabetes mellitus type: type 2 Diabetes mellitus continuous churn buttermaker insulin use: with [facility] use Diabetes mellitus complication status: with other specified complication Qualified Code(s): E11.69 - Type 2 diabetes mellitus with other specified complication; Z79.4 - group home (current) use of 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
[2018-12-28] MEDS: DOCUSATE SODIUM 100 MG CAPSULE (FP) PO SCH ×2 (13:48→21:33)
[2018-12-28] MEDS: POLYETHYLENE GLYCOL 3350 119 GM BTL PO SCH (16:51)
[2018-12-28] MEDS ORDERED: PT OWN MED DRAWER 7, Y5N ONE (17:45)
[2018-12-28] MEDS: ATORVASTATIN CA 40 MG TABLET (FP) PO SCH (21:34)
[2018-12-29 06:21] VITALS: TEMP 97.8
[2018-12-29] MEDS: DOCUSATE SODIUM 100 MG CAPSULE (FP) PO SCH ×2 (07:26→15:58)
[2018-12-29] MEDS: INSULIN SLIDING SCALE (NOVOLOG) 1 VIAL SQ SCH ×2 (07:26→11:24)
[2018-12-29] MEDS ORDERED: DEXTROSE 5%-WATER - 50 ML IVPB ONE (08:38)
[2018-12-29] MEDS ORDERED: cefTRIAXone SODIUM 1 GM VIAL ONE (08:38)
[2018-12-29] MEDS: SEVELAMER CARBONATE 800 MG TAB (FP) PO SCH ×2 (08:41→13:28)
[2018-12-29] MEDS: ALBUTEROL SO4 2.5/IPRATROPIUM 0.5 INH SOL 3 ML VIAL.NEB. NEB SCH ×2 (08:45→13:12)
[2018-12-29] MEDS: LORATADINE 10 MG TABLET PO SCH (09:26)
[2018-12-29] MEDS: CEFTRIAXONE 1 GM in DEXTROSE 5%-WATER - 50 ML IVPB SCH (09:26)
[2018-12-29] MEDS: VITAMIN B COMP W-C 1 EA TABLET PO SCH (09:26)
[2018-12-29] MEDS: PANTOPRAZOLE 40 MG TABLET (FP) PO SCH (09:26)
[2018-12-29] MEDS: HEPARIN NA (PORCINE) 5,000 UNITS/ML 1ML VIAL SQ SCH (09:26)
[2018-12-29] MEDS: MIDODRINE HCL 5 MG TABLET PO SCH ×2 (09:27→15:58)
[2018-12-29] MEDS: SIMETHICONE 80 MG TAB.CHEW (FP) PO PRN (09:37)
[2018-12-29] MEDS: POLYETHYLENE GLYCOL 3350 119 GM BTL PO SCH (09:42)
[2018-12-29] MEDS ORDERED: EPOETIN ALFA 10,000 UNIT/1 ML VIAL IVPUSH ONE (10:15)
[2018-12-29] MEDS: INSULIN (NOVOLOG MIX 70/30) 100 UNITS/ML MDV SQ SCH (11:07)
--- NOTE | 2018-12-29 11:18 | PN ---
Progress Note, Physician History of Present Illness: stable doing well dressing done by hand - Current Medication List Current Medications: Active Medications Acetaminophen (Tylenol -) 650 mg PO Q6H PRN PRN Reason: PAIN LEVEL 1-5 Last Admin: 12/27/18 17:46 Dose: 650 mg Albuterol/Ipratropium (Duoneb -) 1 amp NEB RTID [facility] Last Admin: 12/29/18 08:45 Dose: 1 amp Atorvastatin Calcium (Lipitor -) 40 mg PO HS [facility] Last Admin: 12/28/18 21:34 Dose: 40 mg Calcium Carbonate (Calcium Carbonate -) 650 mg PO DAILY PRN PRN Reason: INDIGESTION Docusate Sodium (Colace -) 100 mg PO TID [facility] Last Admin: 12/29/18 07:26 Dose: 100 mg Heparin Sodium (Porcine) (Heparin -) 5,000 unit SQ BID [facility] Last Admin: 12/29/18 09:26 Dose: Not Given Ceftriaxone Sodium 1 gm/ (Dextrose) 50 mls @ 100 mls/hr IVPB DAILY [facility]; Protocol Last Admin: 12/29/18 09:26 Dose: 100 mls/hr Ibuprofen (Motrin -) 600 mg PO Q6H PRN PRN Reason: PAIN LEVEL 1-5 Last Admin: 12/27/18 11:00 Dose: 600 mg Insulin Aspart (Novolog Mix 70/30 Vial) 28 units SQ BIDAC [facility] Last Admin: 12/29/18 11:07 Dose: Not Given Insulin Aspart (Novolog Vial Sliding Scale -) 1 vial SQ ACHS [facility]; Protocol Last Admin: 12/29/18 07:26 Dose: Not Given Loratadine (Claritin -) 10 mg PO DAILY [facility] Last Admin: 12/29/18 09:26 Dose: 10 mg Midodrine (Proamatine -) 10 mg PO TID-MID [facility] Last Admin: 12/29/18 09:27 Dose: 10 mg Multivit/Ca Carb/B Cmplx/FA/Prenat (Nephro-Kelly -) 1 tablet PO DAILY [facility] Last Admin: 12/29/18 09:26 Dose: 1 tablet Pantoprazole Sodium (Protonix -) 40 mg PO DAILY [facility] Last Admin: 12/29/18 09:26 Dose: 40 mg Polyethylene Glycol (Miralax (For Daily Use) -) 17 gm PO DAILY [facility] Last Admin: 12/29/18 09:42 Dose: Not Given Sevelamer Carbonate (Renvela -) 1,600 mg PO TIDCM [facility] Last Admin: 12/29/18 08:41 Dose: 1,600 mg Simethicone (Mylicon -) 80 mg PO DAILY PRN PRN Reason: GAS Last Admin: 12/29/18 09:37 Dose: 80 mg - Objective Vital Signs: Vital Signs Temperature 97.8 F 12/29/18 06:00 Pulse Rate 66 12/29/18 06:00 Respiratory Rate 20 12/29/18 06:00 Blood Pressure 100/60 12/29/18 06:00 O2 Sat by Pulse Oximetry (%) 97 12/26/18 21:00 Constitutional: Yes: No Distress, Calm Cardiovascular: Yes: Regular Rate and Rhythm Respiratory: Yes: Regular, CTA Bilaterally Gastrointestinal: Yes: Normal Bowel Sounds, Soft Musculoskeletal: Yes: WNL Extremities: Yes: Other Wound/Incision: Yes: Dressing Dry and Intact Neurological: Yes: Alert, Oriented Psychiatric: Yes: Alert, Oriented Labs: CBC, BMP 12/26/18 11:30 12/26/18 14:25 INR, PTT INR 1.11 (0.83-1.09) H 12/18/18 16:55 Assessment/Plan Problem List - Problems (1) Cellulitis of finger Code(s): L03.019 - CELLULITIS OF UNSPECIFIED FINGER Qualifiers: Laterality: right Qualified Code(s): L03.011 - Cellulitis of right finger (2) ESRD (end stage renal disease) Code(s): N18.6 - END STAGE RENAL DISEASE (3) Wet gangrene Code(s): I96 - GANGRENE, NOT ELSEWHERE CLASSIFIED (4) Anemia Code(s): D64.9 - ANEMIA, UNSPECIFIED Qualifiers: Anemia type: unspecified type Qualified Code(s): D64.9 - Anemia, unspecified (5) GERD (gastroesophageal reflux disease) Code(s): K21.9 - GASTRO-ESOPHAGEAL REFLUX DISEASE WITHOUT ESOPHAGITIS Qualifiers: Esophagitis presence: esophagitis presence not specified Qualified Code(s) : K21.9 - Gastro-esophageal reflux disease without esophagitis (6) HTN (hypertension) Code(s): I10 - ESSENTIAL (PRIMARY) HYPERTENSION Qualifiers: Hypertension type: essential hypertension Qualified Code(s): I10 - Essential (primary) hypertension (7) Peptic ulcer disease Code(s): K27.9 - PEPTIC ULC, SITE UNSP, UNSP AC OR CHR, W/O HEMOR OR PERF (8) S/P CABG (coronary artery bypass graft) Code(s): Z95.1 - PRESENCE OF AORTOCORONARY BYPASS GRAFT (9) Upper GI bleed Code(s): K92.2 - GASTROINTESTINAL HEMORRHAGE, UNSPECIFIED Assessment/Plan Rt 5th digit gangrene r/o OM s/p revision of amputation POD#1 Rt hand cellulitis Transient hypotension Uncontrolled DM ESRD on HD CAD s/p CABG PUD s/p Rt 3rd digit/partial Lt 5th digit amputations plan can switch to po augmentin for another 7 days rest as per team
--- NOTE | 2018-12-29 11:48 | DS ---
Physical Examination Vital Signs: Vital Signs Temperature 97.8 F 12/29/18 06:00 Pulse Rate 66 12/29/18 06:00 Respiratory Rate 20 12/29/18 06:00 Blood Pressure 100/60 12/29/18 06:00 O2 Sat by Pulse Oximetry (%) 97 12/26/18 21:00 Constitutional: Yes: No Distress, Calm Cardiovascular: Yes: Regular Rate and Rhythm Respiratory: Yes: CTA Bilaterally Gastrointestinal: Yes: Normal Bowel Sounds, Soft. No: Tenderness Extremities: Yes: Amputation (rt 5th finger) Edema: No Labs: CBC, BMP 12/26/18 11:30 12/26/18 14:25 Discharge Summary Reason For Visit: WET GANGRENE Current Active Problems Cellulitis of finger (Acute) ESRD (end stage renal disease) (Acute) Tachycardia (Acute) Wet gangrene (Acute) Hospital Course: Admitted for wet gangrene of rigt digit-- seen by Surgeon -- underwent surgery DIAGNOSIS__ wet gangrene of right ulnar digit/ small finger Operation: revision amputation of right ulnar digit/ small finger Findings: purulent wet gangrene of right ulnar digit, [place] 7 minutes clean surface post op-- was transferred to tele ICU for hypotensive episode and tachycardia Evaluated by Cardiology pt 's pain controlled-- which helped with Tachycardia BP better pt was on iv antibiotics now on PO Augmentin x 7 days per ID he is stable for dc home has to follow up with surgeon at wound clinic Condition: Improved - Instructions Diet, Activity, Other Instructions: Postoperative instructions: You had a revision ampuatation right ulnar digit on 12/19/[address] Erik Dean of [facility]. Activity: Resume your usual activities gradually, but no heavy exertion or lifting more than 10-15 pounds for 4-6 weeks. Keep wound covered with a bandaid an please do not pick at the wound. Eat lightly at first, but advance to your usual diet as tolerated. Pain: For pain, you may use and alternate Tylenol (acetaminophen) 1-2 pills and/ or ibuprofen 200 mg (1-3 pills) every 6 hours each as needed; this means that you can take one OR the other at 3-hour intervals. If you are prescribed a Tylenol/narcotic combination for severe pain, use it instead of plain Tylenol as needed and switch back when your pain starts decreasing. Do not take more than 4000 mg of acetaminophen in a day. Take medications as prescribed or indicated on the labeling. Follow-up: Call Dr. Dean office at [phone] to make your postop appointment (Friday in approximately 2 weeks after surgery as advised). Clinic is held in the Wound care Center on the fifth floor of [facility]. Call the office if you have: * increasing pain not responsive to pain medication * fever of 101F or higher * vomiting * unusual or increasing bleeding or drainage from wounds * increasing redness or swelling at wound sites * inability to urinate Also, see your primary medical doctor within 1-2 weeks. Disposition: HOME - Home Medications Comprehensive Discharge Medication List: Ambulatory Orders Albuterol 2.5/Ipratropium 0.5 [Duoneb -] 1 amp NEB TID 04/27/18 Aspirin [Ecotrin] 81 mg PO DAILY 04/27/18 Esomeprazole Magnesium [Nexium 24Hr] 40 mg PO DAILY 04/27/18 Folic Acid/Vit B Complex and C [Renal-Kelly Tablet] 0.8 mg PO DAILY 04/27/18 Loratadine [Claritin] 10 mg PO DAILY 04/27/18 Olopatadine HCl [Pataday] 1 drop OU DAILY 04/27/18 Omeprazole 40 mg PO DAILY 04/27/18 Sevelamer Carbonate [Renvela -] 1,600 mg PO TID 04/27/18 Acetaminophen [Tylenol .Regular Strength -] 325 mg PO Q3H PRN tablet 05/04/18 Atorvastatin Ca [Lipitor] 40 mg PO HS tablet 05/04/18 Insulin (Novolog 70/30) [Novolog Mix 70/30 Vial -] 24 units SQ BIDAC units 11/14 Midodrine HCl [Proamatine -] 10 mg PO ASDIR 08/07/18 Pantoprazole Sodium [Protonix] 40 mg PO DAILY #7 tablet. 08/07/18 Calcium Carbonate/Simethicone [Maalox Advanced Tab Chew] 1 each PO DAILY PRN Amoxicillin/Potassium Clav [Augmentin 500-125 Tablet] 1 each PO DAILY #7 tablet 12/29/18
[2018-12-29 13:29] VITALS: PULSE 62
[2018-12-29 14:14] VITALS: BP 145/75
== END 2018-12-29 16:20 | disposition home or self-care (01) | DRG 255 ==
LOC: JER 15:28 → JERBED 19:28 → J5S 12-19 02:57 → J2W 12-20 02:56 → J8W 12-24 20:21
PROVIDERS: ADMIT Internal Medicine; ATTEND Internal Medicine
PROC: 0X6V0Z2 Detachment at Right Little Finger, Mid, Open Approach (ICD-10-PCS; principal; 2018-12-19 20:59)
PROC: 5A1D70Z Performance of Urinary Filtration, Intermittent, Less than 6 Hours Per Day (ICD-10-PCS; 2018-12-29)
DX: E11.52 Type 2 diabetes mellitus with diabetic peripheral angiopathy with gangrene (principal); N18.6 End stage renal disease; I96 Gangrene, not elsewhere classified; I12.0 Hypertensive chronic kidney disease with stage 5 chronic kidney disease or end stage renal disease; M86.141 Other acute osteomyelitis, right hand; E11.69 Type 2 diabetes mellitus with other specified complication; I25.10 Atherosclerotic heart disease of native coronary artery without angina pectoris; I95.81 Postprocedural hypotension; E11.65 Type 2 diabetes mellitus with hyperglycemia; L03.011 Cellulitis of right finger; R00.0 Tachycardia, unspecified; K21.9 Gastro-esophageal reflux disease without esophagitis; Z95.1 Presence of aortocoronary bypass graft; Z99.2 Dependence on renal dialysis; D63.1 Anemia in chronic kidney disease; K59.00 Constipation, unspecified; E66.9 Obesity, unspecified; Z68.33 Body mass index [BMI] 33.0-33.9, adult; E11.22 Type 2 diabetes mellitus with diabetic chronic kidney disease
CPT/HCPCS: 36415; 71045-TC-FY; 73140-TC-RT-FY; 73218-TC-RT; 74019-TC-FY; 80048; 80053; 82565; 82962; 83735; 84439; 84443; 84520; 85025; 85027; 85610; 85651; 86140; 86803; 86850; 86900; 86901; 87040; 87070; 87186; 87205; 87340; 88305-TC; 88311-TC; 93005; 93010; 93306-TC; 94640; 94760; 99283-25; J0885; J1644

== ENCOUNTER 2019-01-19 23:04 | Inpatient (IN) | payer OTHER ==
[2019-01-19 23:45] VITALS: BMI 30.5
[2019-01-20] MEDS ORDERED: morphine CARPU-JECT 4 MG/1 ML DISP.SYRIN IVPUSH ONE (02:13)
[2019-01-20] MEDS ORDERED: SODIUM CHLORIDE 1,000 ML IV STA (02:13)
[2019-01-20] MEDS ORDERED: ONDANSETRON 4 MG/2 ML VIAL IVPUSH ONE (02:13)
--- NOTE | 2019-01-20 02:20 | PDOC ---
History of Present Illness - General Chief Complaint: Chest Pain Stated Complaint: CHEST PAIN Time Seen by Provider: 01/20/19 00:27 - History of Present Illness Initial Comments: 01/20/19 02:15 58 yo M with h/o poorly controlled DM, wet gangrene, RUE digit amputation, bleeding gastric ulcers, CAD s/o CABG (09/14), mesenteric ischemia, who p/w abdominal and chest pain. Patient reports acute onset of 2 days of worsening, unremitting diffuse abdominal burning, with no identifiable alleviators. + Postpranidal pain. Also endorses 1 day of diffuse chest pressure at rest, with no identifiable triggers or alleviators. + SOB, [place]. Patient recently admitted [facility] (12/18/18-12/29/18) for sepsis and R 3rd-5th digit gangrene with 3rd digit amputation, partial left 5th digit amputation. Patient denies ARVIZU, vision change, palpitations, cough, wheezing, orthopena, PND , leg swelling/pain, N/V, F,C, urinary complaints, hematuria, BPR, diarrhea, constipation, lightheadedness, weakness, sensory changes. PMHx: as noted above ROS: as noted above Allergies: denies Etoh, IVDA, tobacco use SHx: NKDA Past History - Past Medical History Allergies/Adverse Reactions: Allergies Allergy/AdvReac Type Severity Reaction Status Date / Time No Known Drug Allergies Allergy Verified 01/19/19 23:45 Home Medications: Ambulatory Orders Albuterol 2.5/Ipratropium 0.5 [Duoneb -] 1 amp NEB TID 04/27/18 Aspirin [Ecotrin] 81 mg PO DAILY 04/27/18 Esomeprazole Magnesium [Nexium 24Hr] 40 mg PO DAILY 04/27/18 Folic Acid/Vit B Complex and C [Renal-Kelly Tablet] 0.8 mg PO DAILY 04/27/18 Loratadine [Claritin] 10 mg PO DAILY 04/27/18 Olopatadine HCl [Pataday] 1 drop OU DAILY 04/27/18 Omeprazole 40 mg PO DAILY 04/27/18 Sevelamer Carbonate [Renvela -] 1,600 mg PO TID 04/27/18 Acetaminophen [Tylenol .Regular Strength -] 325 mg PO Q3H PRN tablet 05/04/18 Atorvastatin Ca [Lipitor] 40 mg PO HS tablet 05/04/18 Insulin (Novolog 70/30) [Novolog Mix 70/30 Vial -] 24 units SQ BIDAC units 11/14 Midodrine HCl [Proamatine -] 10 mg PO ASDIR 08/07/18 Pantoprazole Sodium [Protonix] 40 mg PO DAILY #7 tablet. 08/07/18 Calcium Carbonate/Simethicone [Maalox Advanced Tab Chew] 1 each PO DAILY PRN Anemia: No Cardiac Disorders: Yes (Open heart sx 2018 triple bypass) COPD: No DVT: No Diabetes: Yes (30 yrs) Dialysis: Yes (TUES,THR,SAT RT ARM DIALYSIS ACCESS) GI Disorders: Yes (GI BLEED) HTN: Yes Hypercholesterolemia: Yes - Surgical History Cardiac Surgery: Yes (CABG triple bypass 2017) Orthopedic Surgery: Yes (OR debridement left foot wound) - Immunization History Immunization Up to Date: No - Suicide/Smoking/Psychosocial Hx Smoking Status: No Smoking History: Never smoked Have you smoked in the past 12 months: No Number of Cigarettes Smoked Daily: 0 Information on smoking cessation initiated: No Hx Alcohol Use: No Drug/Substance Use Hx: No Substance Use Type: None Hx Substance Use Treatment: No Review of Systems - Review of Systems Comments:: 01/20/19 02:21 GENERAL/CONSTITUTIONAL: No fever or chills. No weakness. HEAD, EYES, EARS, NOSE AND THROAT: No change in vision. No ear pain or discharge. No sore throat. CARDIOVASCULAR: + chest pain and shortness of breath RESPIRATORY: No cough, wheezing, or hemoptysis. GASTROINTESTINAL: + nausea, and abdominal pain. No vomiting, diarrhea or constipation. GENITOURINARY: No dysuria, frequency, or change in urination. MUSCULOSKELETAL: No joint or muscle swelling or pain. No neck or back pain. SKIN: No rash NEUROLOGIC: No headache, vertigo, loss of consciousness, or change in strength/ sensation. ENDOCRINE: No increased thirst. No abnormal weight change HEMATOLOGIC/LYMPHATIC: No anemia, easy bleeding, or history of blood clots. ALLERGIC/IMMUNOLOGIC: No hives or skin allergy. PE: *Physical Exam - Vital Signs Last Vital Signs Temp Pulse Resp BP Pulse Ox 98.9 F 77 20 186/86 H 98 01/19/19 23:41 01/19/19 23:41 01/19/19 23:41 01/19/19 23:41 01/19/19 23:41 - Physical Exam Comments: 01/20/19 02:20 GENERAL: Awake, alert, and fully oriented, in no acute distress HEAD: No signs of trauma, normocephalic, atraumatic EYES: PERRLA, EOMI, sclera anicteric, conjunctiva clear ENT: Auricles normal inspection, hearing grossly normal, nares patent, oropharynx clear without exudates. Moist mucosa NECK: Normal ROM, supple, no lymphadenopathy, JVD, or masses LUNGS: No distress, speaks full sentences, clear to auscultation bilaterally HEART: Regular rate and rhythm, normal S1 and S2, no murmurs, rubs or gallops, peripheral pulses normal and equal bilaterally. ABDOMEN: + Diffuse abdominal ttp, and portuberance. Soft, NDS, normoactive bowel sounds. No guarding, no rebound. No masses. Neg CVA ttp. EXTREMITIES : Normal inspection, Normal range of motion, no edema. No clubbing or cyanosis. NEUROLOGICAL: Cranial nerves II through XII grossly intact. Normal speech, normal gait, no focal sensorimotor deficits SKIN: Warm, Dry, normal turgor, no rashes or lesions noted ED Treatment Course - LABORATORY CBC & Chemistry Diagram: 01/22/19 06:55 01/22/19 06:55 - RADIOLOGY Radiology Studies Ordered: Category Date Time Status CXRPORT [CHEST X-RAY PORTABLE*] [RAD] Stat Radiology 01/20/19 01:56 Ordered Medical Decision Making - Medical Decision Making 01/20/19 02:20 58 yo M with h/o poorly controlled DM, wet gangrene, R 3rd-5th digit gangrene with 3rd digit amputation, partial left 5th digit amputation (01/15) bleeding gastric ulcers, CAD s/o CABG (09/14), .mesenteric ischemia, who p/w 2 days of worsening, unremitting diffuse abdominal burning, and 1 day diffuse chest pressure. BP 186/86, vitals otherwise wnl, AF, A&Ox3. Physical exam notable for diffuse abdominal ttp. ACS/AL r/o. will consider mesenteric ischemia, Ao dissection. DDx: colitis, enteritis, esophagitis, PUD, biliary dz. Ed Course: 01/20/19 02:28 Laboratory Tests 01/20/19 01/20/1919 02:47 02:47 02:47 WBC 7.2 Hgb 11.0 L Hct 33.1 L D Plt Count 162 D Sodium 135 L Potassium 5.2 H BUN 66.0 H Creatinine 8.0 H* Lactic Acid Troponin I < 0.02 B-Natriuretic Peptide 66354.2 H Lipase 01/20/19 01/20/19 02:47 02:47 WBC Hgb Hct Plt Count Sodium Potassium BUN Creatinine Lactic Acid 1.0 Troponin I B-Natriuretic Peptide Lipase 718 H 01/20/19 05:27 EKG: NSR with absent WOODY, STD. + Fusion complexes. Incomplete RBBB, Nml interval duration and axis. Absent Q waves. TWI I, AvL ( Lateral lead changes from interval EKG 12-21-18) Patient pending CTA chest, Abdomen and Pelvis. Pain controlled. Pending imaging. Endorsed to day team and day attending. *DC/Admit/Observation/Transfer Diagnosis at time of Disposition: ESRD (end stage renal disease) on dialysis Pancreatitis Qualifiers: Chronicity: acute Pancreatitis type: unspecified pancreatitis type Acute pancreatitis complication: unspecified Qualified Code(s): K85.90 - Acute pancreatitis without necrosis or infection, unspecified - Discharge Dispostion Condition at time of disposition: Fair Decision to Admit order: Yes - Referrals - Patient Instructions - Post Discharge Activity
[2019-01-20] MEDS ORDERED: morphine SULFATE 4 MG/ML VIAL ONE (02:29)
[2019-01-20] MEDS ORDERED: ONDANSETRON 4 MG/2 ML VIAL ONE (02:30)
[2019-01-20 03:09] LABS: BASO % 0.3 % (0-2.0); EOS % 0.2 % (0-4.5); HEMATOCRIT 33.1 % (35.4-49); MCH 30.9 pg (25.7-33.7); MCHC 33.1 g/dl (32.0-35.9); MEAN CELL VOLUME 93.3 fl (80-96); MEAN PLT VOLUME 9.4 fl (7.5-11.1); MONO % 5.4 % (3.8-10.2); NEUT % 84.1 % (42.8-82.8); PLATELET COUNT 162 K/MM3 (134-434); RBC 3.55 M/mm3 (4.00-5.60); RDW 17.5 % (11.9-15.9); WHITE BLOOD COUNT 7.2 K/mm3 (4.0-10.0)
[2019-01-20 04:17] LABS: ALBUMIN 3.8 g/dl (3.4-5.0); BILIRUBIN,TOTAL 0.3 mg/dL (0.2-1); CALCIUM 8.3 mg/dL (8.5-10.1); N-TERMINAL BNP 17304.2 pg/ml (5-125); POTASSIUM 5.2 mmol/L (3.5-5.1); TOT PROT 8.2 g/dl (6.4-8.2)
--- NOTE | 2019-01-20 05:18 | PDOC ---
Documentation entered by Dayanara Walden SCRIBE, acting as scribe for Elza Brown DO. Elza Brown DO: This documentation has been prepared by the Win guardado Adrianna, SCRIBE, under my direction and personally reviewed by me in its entirety. I confirm that the documentation accurately reflects all work, treatment, procedures, and medical decision making performed by me. Attending Attestation - Resident Resident Name: MosesJose Cruz - ED Attending Attestation I have performed the following: I have examined & evaluated the patient, The case was reviewed & discussed with the resident, I agree w/resident's findings & plan - HPI HPI: The patient is a 58 year old male, with a significant PMH of ESRD on dialysis (), diabetes mellitus (poorly controlled, wet gangrene, RUE digit amputation), PUD, prior bleeding gastric ulcers found on EGD, mesenteric ischemia, and coronary artery disease (s/p CABG 2017), who presents to the ED for evaluation of abdominal pain for 2 days, and chest pain for 1 day. Patient describes the abdominal pain as diffuse, progressively worsening, and constant. Patient notes the chest pain was sudden onset as rest, and notes its a diffuse pressure that is constant at rest. He reports associated SOB and dyspnea on exertion. Patient had dialysis earlier today, but was unable to complete it. Allergies: NKA, NKDA Surgical History: CABG, debridement of left foot wound Social History: Denies EtOH, tobacco, or illicit drug use PCP: Dr. Sandra - Physicial Exam PE: Agree with resident exam - Medical Decision Making 01/20/19 19:23 58-year-old male with a history of vascular disease as well as end-stage renal disease complaining of abdominal pain Labs suggest possible pancreatitis CT scan of the abdomen and pelvis pending Signed out to oncoming physician
--- NOTE | 2019-01-20 08:16 | EKG ---
Test Reason : Blood Pressure : / mmHG Vent. Rate : 078 BPM Atrial Rate : 078 BPM P-R Int : 158 ms QRS Dur : 098 ms QT Int : 394 ms P-R-T Axes : 050 054 105 degrees QTc Int : 449 ms SINUS RHYTHM WITH FUSION COMPLEXES POSSIBLE LEFT ATRIAL ENLARGEMENT INCOMPLETE RIGHT BUNDLE BRANCH BLOCK T WAVE ABNORMALITY, CONSIDER LATERAL ISCHEMIA ABNORMAL ECG WHEN COMPARED WITH ECG OF 21-DEC-2018 21:07, FUSION COMPLEXES ARE NOW PRESENT VENT. RATE HAS DECREASED BY 41 BPM INCOMPLETE RIGHT BUNDLE BRANCH BLOCK IS NOW PRESENT Confirmed by CINDY MANCINI, JF ([id number]) on 01/20/2019 8:16:23 AM Referred By: Confirmed By:JF WHITE MD
[2019-01-20] MEDS ORDERED: morphine CARPU-JECT 2 MG/1 ML DISP.SYRIN IVPUSH ONE (08:32)
[2019-01-20] MEDS ORDERED: FAMOTIDINE 20 MG/50 ML IVPB 20 MG/50 ML MG IVPB ONE ×2 (08:33→08:44)
[2019-01-20] MEDS ORDERED: MORPHINE SULFATE 2 MG/ML VIAL ONE ×2 (08:44→15:25)
--- NOTE | 2019-01-20 09:09 | PDOC ---
*Physical Exam - Vital Signs Last Vital Signs Temp Pulse Resp BP Pulse Ox 98.4 F 75 16 156/67 99 01/20/19 07:45 01/20/19 07:45 01/20/19 07:45 01/20/19 07:45 01/20/19 07:45 - Physical Exam Comments: 01/20/19 09:06 Patient endorsed to me by Dr. taveras. Patient is a 58-year-old male with multiple comorbidities, with history of end-stage renal disease on hemodialysis Friday, , Friday (last dialysis was 24 hours previously at the patient reports an incomplete session due to recurrent abdominal pain). Patient presents with migratory severe pain that has required several doses of IV morphine. Patient was initially scheduled for CTA of chest/abdomen/pelvis with radiology refused to perform it due to patient's history of renal failure. A CT with no contrast administered showed no evidence of acute intra-abdominal pathology. Patient's lipase is noted to be elevated at 718. Initial lactic acid was within normal limit. Repeat labs are pending. On reexamination, patient is noted to be writhing in pain with pain out of proportion to physical exam findings. Aortic dissection versus a mesenteric ischemia is in the differential diagnosis. Additional pain meds of been administered. Will obtain CTA of chest/ abdomen/pelvis. Will consult nephrology for repeat dialysis. Will reassess. Likely admission. 01/20/19 10:43 CTA was unable to be completed due to vascular access. Repeat lactic acid is within normal limit. Dissection is unlikely given the lack of widened mediastinum or any other findings. Repeat cardiac enzymes are also within normal limit. Lipase is increased from 718 07/1999. I suspect acute pancreatitis. Will obtain right upper quadrant ultrasound to rule out gallbladder as a source of patient's pancreatitis. Will admit. We'll judiciously hydrate. ED Treatment Course - LABORATORY CBC & Chemistry Diagram: 01/20/19 09:20 01/20/19 09:20 - ADDITIONAL ORDERS Additional order review: Laboratory Results 01/20/19 01/20/19 01/20/19 02:47 02:47 02:47 Sodium 135 L Potassium 5.2 H Chloride 96 L Carbon Dioxide 28 Anion Gap 11 BUN 66.0 H Creatinine 8.0 H* Est GFR (CKD-EPI)AfAm 7.69 Est GFR (CKD-EPI)NonAf 6.64 Random Glucose 264 H Lactic Acid 1.0 Calcium 8.3 L Total Bilirubin 0.3 AST 29 ALT 21 Alkaline Phosphatase 159 H Creatine Kinase Troponin I B-Natriuretic Peptide 66800.2 H Total Protein 8.2 Albumin 3.8 Lipase 718 H 01/20/19 02:47 Sodium Potassium Chloride Carbon Dioxide Anion Gap BUN Creatinine Est GFR (CKD-EPI)AfAm Est GFR (CKD-EPI)NonAf Random Glucose Lactic Acid Calcium Total Bilirubin AST ALT Alkaline Phosphatase Creatine Kinase 82 Troponin I < 0.02 B-Natriuretic Peptide Total Protein Albumin Lipase 01/20/19 02:47 RBC 3.55 L MCV 93.3 MCHC 33.1 RDW 17.5 H MPV 9.4 Neutrophils % 84.1 H D Lymphocytes % 10.0 D Monocytes % 5.4 Eosinophils % 0.2 D Basophils % 0.3 - RADIOLOGY Radiology Studies Ordered: Category Date Time Status CHEST CTA [CT] Stat CT Scan 01/20/19 09:02 Ordered - Medications Given in the ED: ED Medications Discontinued Medications Generic Name Dose Route Start Last Admin Trade Name Freq PRN Reason Stop Dose Admin Sodium Chloride 1,000 mls @ 1,000 mls/hr 01/20/19 02:13 01/20/19 03:07 Normal Saline - IV 01/20/19 03:12 1,000 mls/hr ASDIR STA Administration Famotidine/Sodium Chloride 20 mg in 50 mls @ 100 mls/hr 01/20/19 08:33 08:35 Pepcid 20 Mg Premixed Ivpb - IVPB 01/20/19 09:02 100 mls/hr ONCE ONE Administration Morphine Sulfate 4 mg 01/20/19 02:13 01/20/19 03:06 Morphine Injection - IVPUSH 01/20/19 02:14 4 mg ONCE ONE Administration Morphine Sulfate 2 mg 01/20/19 08:32 01/20/19 08:30 Morphine Injection - IVPUSH 01/20/19 08:33 2 mg ONCE ONE Administration Ondansetron HCl 4 mg 01/20/19 02:13 01/20/19 03:07 Zofran Injection IVPUSH 01/20/19 02:14 Not Given ONCE ONE *DC/Admit/Observation/Transfer Diagnosis at time of Disposition: ESRD (end stage renal disease) on dialysis Pancreatitis Qualifiers: Chronicity: acute Pancreatitis type: unspecified pancreatitis type Acute pancreatitis complication: unspecified Qualified Code(s): K85.90 - Acute pancreatitis without necrosis or infection, unspecified - Discharge Dispostion Condition at time of disposition: Fair Decision to Admit order: Yes - Referrals Referrals: Singh Sandra MD [Primary Care Provider] - - Patient Instructions - Post Discharge Activity
[2019-01-20 09:32] LABS: BASO % 0.4 % (0-2.0); EOS % 0.4 % (0-4.5); HEMATOCRIT 33.9 % (35.4-49); MCH 30.5 pg (25.7-33.7); MCHC 32.4 g/dl (32.0-35.9); MEAN CELL VOLUME 94.1 fl (80-96); MEAN PLT VOLUME 9.1 fl (7.5-11.1); MONO % 7.6 % (3.8-10.2); NEUT % 78.6 % (42.8-82.8); PLATELET COUNT 143 K/MM3 (134-434); RDW 17.2 % (11.9-15.9); WHITE BLOOD COUNT 6.3 K/mm3 (4.0-10.0)
[2019-01-20 10:13] LABS: ALBUMIN 3.5 g/dl (3.4-5.0); ALK PHOS 146 U/L (45-117); ANION GAP 12 MMOL/L (8-16); BILIRUBIN,TOTAL 0.3 mg/dL (0.2-1); CALCIUM 8.1 mg/dL (8.5-10.1); CHLORIDE 97 mmol/L (98-107); CO2 26 mmol/L (21-32); GLUCOSE,RANDOM 270 mg/dL (74-106); LIPASE 2380 U/L (73-393); POTASSIUM 5.1 mmol/L (3.5-5.1); SGOT/AST 8 U/L (15-37); SGPT/ALT 16 U/L (13-61); SODIUM 134 mmol/L (136-145); TOT PROT 7.7 g/dl (6.4-8.2)
[2019-01-20 10:16] LABS: CREATININE 8.3 mg/dL (0.55-1.3)
[2019-01-20] MEDS ORDERED: SODIUM CHLORIDE 250 ML IV STA (10:33)
[2019-01-20] MEDS ORDERED: LACTATED RINGERS SOLUTION 1,000 ML/1,000 ML INFUS.BAG IV SCH (11:00)
--- NOTE | 2019-01-20 11:29 | HP ---
Admitting History and Physical - Primary Care Physician PCP: Singh Sandra - Admission Chief Complaint: abd pain History of Present Illness: ER HISTORY - HPI HPI: The patient is a 58 year old male, with a significant PMH of ESRD on dialysis (), diabetes mellitus (poorly controlled, wet gangrene, RUE digit amputation), PUD, prior bleeding gastric ulcers found on EGD, mesenteric ischemia, and coronary artery disease (s/p CABG 2017), who presents to the ED for evaluation of abdominal pain for 2 days, and chest pain for 1 day. Patient describes the abdominal pain as diffuse, progressively worsening, and constant. Patient notes the chest pain was sudden onset as rest, and notes its a diffuse pressure that is constant at rest. He reports associated SOB and dyspnea on exertion. Patient had dialysis earlier today, but was unable to complete it. Allergies: NKA, NKDA Surgical History: CABG, debridement of left foot wound Social History: Denies EtOH, tobacco, or illicit drug use PCP: Dr. 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 No: Aortic Stenosis Gastrointestinal: Yes: GERD Renal/: Yes: Renal Failure, Hemodialysis Heme/Onc: Yes: Anemia Musculoskeletal: Yes: Other (peripheral vascular disease) Endocrine: Yes: Diabetes Mellitus - Past Surgical History Past Surgical History: Yes: Amputation, AV Fistula/Graft, CABG - Smoking History Smoking history: Never smoked Have you smoked in the past 12 months: No Aproximately how many cigarettes per day: 0 - Alcohol/Substance Use Hx Alcohol Use: No History of Substance Use: reports: None - Social History ADL: Independent History of Recent Travel: No Home Medications - Allergies Allergies/Adverse Reactions: Allergies Allergy/AdvReac Type Severity Reaction Status Date / Time No Known Drug Allergies Allergy Verified 01/19/19 23:45 - Home Medications Home Medications: Ambulatory Orders Albuterol 2.5/Ipratropium 0.5 [Duoneb -] 1 amp NEB TID 04/27/18 Aspirin [Ecotrin] 81 mg PO DAILY 04/27/18 Esomeprazole Magnesium [Nexium 24Hr] 40 mg PO DAILY 04/27/18 Folic Acid/Vit B Complex and C [Renal-Kelly Tablet] 0.8 mg PO DAILY 04/27/18 Loratadine [Claritin] 10 mg PO DAILY 04/27/18 Olopatadine HCl [Pataday] 1 drop OU DAILY 04/27/18 Omeprazole 40 mg PO DAILY 04/27/18 Sevelamer Carbonate [Renvela -] 1,600 mg PO TID 04/27/18 Acetaminophen [Tylenol .Regular Strength -] 325 mg PO Q3H PRN tablet 05/04/18 Atorvastatin Ca [Lipitor] 40 mg PO HS tablet 05/04/18 Insulin (Novolog 70/30) [Novolog Mix 70/30 Vial -] 24 units SQ BIDAC units 11/14 Midodrine HCl [Proamatine -] 10 mg PO ASDIR 08/07/18 Pantoprazole Sodium [Protonix] 40 mg PO DAILY #7 tablet. 08/07/18 Calcium Carbonate/Simethicone [Maalox Advanced Tab Chew] 1 each PO DAILY PRN Review of Systems - Review of Systems Constitutional: denies: Chills, Fever Respiratory: denies: Cough Gastrointestinal: reports: Abdominal Pain Physical Examination Vital Signs: Vital Signs Temperature 98.4 F 01/20/19 07:45 Pulse Rate 75 01/20/19 07:45 Respiratory Rate 16 01/20/19 07:45 Blood Pressure 156/67 01/20/19 07:45 O2 Sat by Pulse Oximetry (%) 99 01/20/19 07:45 Constitutional: Yes: Mild Distress Cardiovascular: Yes: Regular Rate and Rhythm Respiratory: Yes: Diminished Gastrointestinal: Yes: Normal Bowel Sounds, Soft, Abdomen, Obese, Tenderness Edema: No Labs: CBC, BMP 01/20/19 09:20 01/20/19 09:20 Imaging - Results Chest X-ray: Image Reviewed Cat Scan: Report Reviewed Ultrasound: Report Reviewed EKG: Image Reviewed Problem List - Problems (1) ESRD (end stage renal disease) on dialysis Code(s): N18.6 - END STAGE RENAL DISEASE; Z99.2 - DEPENDENCE ON RENAL DIALYSIS (2) Pancreatitis Code(s): K85.90 - ACUTE PANCREATITIS WITHOUT NECROSIS OR INFECTION, UNSP Qualifiers: Chronicity: acute Pancreatitis type: unspecified pancreatitis type Acute pancreatitis complication: unspecified Qualified Code(s): K85.90 - Acute pancreatitis without necrosis or infection, unspecified (3) Abdominal pain Code(s): R10.9 - UNSPECIFIED ABDOMINAL PAIN Qualifiers: (4) Anemia Code(s): D64.9 - ANEMIA, UNSPECIFIED Qualifiers: Anemia type: unspecified type Qualified Code(s): D64.9 - Anemia, unspecified Assessment/Plan PLAN Keep NPO pain control GI and renal eval Sono abd-- no gallstones CT abd/pelvis noted Lipase elevated continue with meds Will order MRCP ,lipid panel
[2019-01-20] MEDS: ALBUTEROL SO4 2.5/IPRATROPIUM 0.5 INH SOL 3 ML VIAL.NEB. NEB SCH ×2 (14:00→21:44)
[2019-01-20] MEDS: INSULIN SLIDING SCALE (NOVOLOG) 1 VIAL SQ SCH ×2 (15:42→21:07)
[2019-01-20] MEDS: MIDODRINE HCL 5 MG TABLET PO SCH ×2 (15:42→18:03)
[2019-01-20] MEDS: MORPHINE SULFATE 2 MG/ML VIAL IVPUSH PRN ×2 (15:45→20:25)
[2019-01-20] MEDS ORDERED: INSULIN (NOVOLOG) ASPART 100 UNITS/ML 10ML VIAL ONE (15:46)
--- NOTE | 2019-01-20 17:22 | CON.NEP ---
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 No: Aortic Stenosis Gastrointestinal: Yes: GERD Renal/: Yes: Renal Failure, Hemodialysis Musculoskeletal: Yes: Other (peripheral vascular disease) Endocrine: Yes: Diabetes Mellitus - Past Surgical History Past Surgical History: Yes: Amputation, AV Fistula/Graft (RT UPPER ARM AVG POS BRUIT), CABG - Alcohol/Substance Use Hx Alcohol Use: Yes (EX ALCOHOL USER) History of Substance Use: reports: None - Smoking History Smoking history: Never smoked Have you smoked in the past 12 months: No Aproximately how many cigarettes per day: 0 - Social History Usual Living Arrangement: With Spouse ADL: Independent History of Recent Travel: No Home Medications - Allergies Allergies/Adverse Reactions: Allergies Allergy/AdvReac Type Severity Reaction Status Date / Time No Known Drug Allergies Allergy Verified 01/19/19 23:45 - Home Medications Home Medications: Ambulatory Orders Albuterol 2.5/Ipratropium 0.5 [Duoneb -] 1 amp NEB TID 04/27/18 Aspirin [Ecotrin] 81 mg PO DAILY 04/27/18 Esomeprazole Magnesium [Nexium 24Hr] 40 mg PO DAILY 04/27/18 Folic Acid/Vit B Complex and C [Renal-Kelly Tablet] 0.8 mg PO DAILY 04/27/18 Loratadine [Claritin] 10 mg PO DAILY 04/27/18 Olopatadine HCl [Pataday] 1 drop OU DAILY 04/27/18 Omeprazole 40 mg PO DAILY 04/27/18 Sevelamer Carbonate [Renvela -] 1,600 mg PO TID 04/27/18 Acetaminophen [Tylenol .Regular Strength -] 325 mg PO Q3H PRN tablet 05/04/18 Atorvastatin Ca [Lipitor] 40 mg PO HS tablet 05/04/18 Insulin (Novolog 70/30) [Novolog Mix 70/30 Vial -] 24 units SQ BIDAC units 11/14 Midodrine HCl [Proamatine -] 10 mg PO ASDIR 08/07/18 Pantoprazole Sodium [Protonix] 40 mg PO DAILY #7 tablet. 08/07/18 Calcium Carbonate/Simethicone [Maalox Advanced Tab Chew] 1 each PO DAILY PRN Review of Systems Unable to obtain ROS, reason: IN PAIN Nephrology Consult - Height Height: 5 ft 7 in - Weight Weight: 195 lb - BMI Body Mass Index (BMI): 30.5 - Lab Results CBC,BMP: CBC, BMP 01/20/19 09:20 01/20/19 09:20 Anion Gap: Anion Gap Anion Gap 12 MMOL/L (8-16) 01/20/19 09:20 - Imaging Chest X-ray: Report Reviewed Cat Scan: Report Reviewed Ultrasound: Report Reviewed - Physical Examination Vital Signs: Vital Signs Temperature 97.8 F 01/20/19 11:58 Pulse Rate 72 01/20/19 11:58 Respiratory Rate 18 01/20/19 11:58 Blood Pressure 178/84 H 01/20/19 11:58 O2 Sat by Pulse Oximetry (%) 100 01/20/19 11:58 Constitutional: Yes: Mild Distress Cardiovascular: Yes: Regular Rate and Rhythm Respiratory: Yes: Regular, CTA Bilaterally Gastrointestinal: Yes: Other (SOFT NONTENDER NO GUARDING NO REBOUND) Access for Hemodialysis: AV Graft (RT) Edema: No Assessment/Plan 58 WITH ESRD DM PVD IN WITH ABD PAIN LIPASE HIGH SEES DR MORALES NORMALLY NPO EXCEPT ICE CHIPS DC FLUIDS HD IN AM CHECK PO4 CASE D/W AT BEDSIDE
[2019-01-20] MEDS: SEVELAMER CARBONATE 800 MG TAB (FP) PO SCH (17:53)
[2019-01-21] MEDS: MORPHINE SULFATE 2 MG/ML VIAL IVPUSH PRN ×5 (01:29→21:40)
[2019-01-21] MEDS ORDERED: ACETAMINOPHEN 1000 MG/100 ML VIAL (NON FORMULARY) IVPB ONE (03:07)
[2019-01-21] MEDS: INSULIN SLIDING SCALE (NOVOLOG) 1 VIAL SQ SCH ×4 (06:43→21:39)
[2019-01-21 07:52] LABS: BASO % 0.3 % (0-2.0); EOS % 1.3 % (0-4.5); HEMATOCRIT 33.1 % (35.4-49); HEMOGLOBIN 10.9 GM/dL (11.7-16.9); LYMPH % 19.5 % (8-40); MCH 30.4 pg (25.7-33.7); MCHC 32.8 g/dl (32.0-35.9); MEAN CELL VOLUME 92.8 fl (80-96); MEAN PLT VOLUME 8.8 fl (7.5-11.1); MONO % 7.6 % (3.8-10.2); NEUT % 71.3 % (42.8-82.8); PLATELET COUNT 156 K/MM3 (134-434); RBC 3.57 M/mm3 (4.00-5.60); RDW 17.2 % (11.9-15.9); WHITE BLOOD COUNT 6.1 K/mm3 (4.0-10.0)
[2019-01-21] MEDS: SEVELAMER CARBONATE 800 MG TAB (FP) PO SCH ×3 (08:14→17:01)
[2019-01-21] MEDS: ALBUTEROL SO4 2.5/IPRATROPIUM 0.5 INH SOL 3 ML VIAL.NEB. NEB SCH ×3 (08:14→19:58)
[2019-01-21 08:26] LABS: ALBUMIN 3.6 g/dl (3.4-5.0); BILIRUBIN,TOTAL 0.3 mg/dL (0.2-1); BLOOD UREA NITROGEN 84.7 mg/dL (7-18); CALCIUM 8.5 mg/dL (8.5-10.1); POTASSIUM 4.9 mmol/L (3.5-5.1); TOT PROT 7.8 g/dl (6.4-8.2)
[2019-01-21 08:35] LABS: CREATININE 9.8 mg/dL (0.55-1.3)
[2019-01-21] MEDS ORDERED: PATIENT'S OWN MEDICATION (NON-FORMULARY) (Olopatadine Hcl [Pataday] 1 DROP) OU SCH (10:00)
[2019-01-21] MEDS ORDERED: PT OWN MED DRAWER 7, Y5N ONE (10:54)
[2019-01-21] MEDS: PANTOPRAZOLE SODIUM 40 MG VIAL IVPUSH SCH (10:57)
[2019-01-21] MEDS: MIDODRINE HCL 5 MG TABLET PO SCH ×3 (11:02→17:57)
[2019-01-21] MEDS ORDERED: oxyCODONE HCL 5 MG TABLET PO PRN (12:14)
--- NOTE | 2019-01-21 12:17 | PN ---
Progress Note (short form) - Note Progress Note: has severe pain in abdomen no nausea no vomiting Vital Signs - 24 hr 01/20/19 01/20/19 01/20/19 14:30 18:04 18:50 Temperature 98.2 F 98.5 F 97.6 F Pulse Rate 71 Pulse Rate [ 75 75 Left] Respiratory 18 17 20 Rate Blood Pressure 151/92 Blood Pressure 165/80 178/82 H [Left] O2 Sat by Pulse 99 97 Oximetry (%) 01/20/19 01/20/19 01/21/19 19:45 21:30 02:24 Temperature 97.6 F 98.6 F Pulse Rate 81 69 Pulse Rate [ Left] Respiratory 18 18 Rate Blood Pressure 151/92 148/74 Blood Pressure [Left] O2 Sat by Pulse 97 Oximetry (%) 01/21/19 01/21/19 01/21/19 06:00 07:05 07:10 Temperature 98.6 F 97.7 F Pulse Rate 66 80 80 Pulse Rate [ Left] Respiratory 18 18 18 Rate Blood Pressure 147/70 194/113 H 191/92 H Blood Pressure [Left] O2 Sat by Pulse Oximetry (%) 01/21/19 01/21/19 01/21/19 07:40 08:10 08:40 Temperature Pulse Rate 80 72 72 Pulse Rate [ Left] Respiratory 18 18 18 Rate Blood Pressure 190/93 H 165/87 164/85 Blood Pressure [Left] O2 Sat by Pulse Oximetry (%) 01/21/19 01/21/19 01/21/19 09:10 09:40 10:10 Temperature Pulse Rate 72 71 72 Pulse Rate [ Left] Respiratory 18 18 18 Rate Blood Pressure 170/101 H 158/86 157/91 Blood Pressure [Left] O2 Sat by Pulse Oximetry (%) 01/21/19 10:15 Temperature Pulse Rate 72 Pulse Rate [ Left] Respiratory 18 Rate Blood Pressure 168/89 Blood Pressure [Left] O2 Sat by Pulse Oximetry (%) Current Medications Generic Name Dose Route Start Last Admin Trade Name Freq PRN Reason Stop Dose Admin Albuterol/Ipratropium 1 amp 01/20/19 14:00 01/21/19 08:14 Duoneb - NEB Not Given RTID VALERIA Insulin Aspart 1 vial 01/20/19 16:30 01/21/19 11:14 Novolog Vial Sliding Scale - SQ 2 units ACHS VALERIA Administration Protocol Midodrine 10 mg 01/21/19 12:15 Proamatine - PO TID-MID VALERIA Morphine Sulfate 2 mg 01/20/19 11:42 01/21/19 09:23 Morphine Sulfate IVPUSH 2 mg Q4H PRN Administration PAIN LEVEL 6-10 Non-Formulary Medication 1 drop 01/21/19 10:00 Olopatadine Hcl [Pataday] OU DAILY [facility]IA Oxycodone HCl 10 mg 01/21/19 12:14 Roxicodone - PO Q4H PRN PAIN LEVEL 6-10 Pantoprazole Sodium 40 mg 01/21/19 10:00 01/21/19 10:57 Protonix Iv IVPUSH 40 mg DAILY VALERIA Administration Sevelamer Carbonate 1,600 mg 01/20/19 17:30 01/21/19 11:27 Renvela - PO 1,600 mg TIDCM VALERIA Administration Laboratory Results - last 24 hr 01/20/19 01/20/19 01/21/19 15:40 21:05 06:38 WBC RBC Hgb Hct MCV MCH MCHC RDW Plt Count MPV Absolute Neuts (auto) Neutrophils % Lymphocytes % Monocytes % Eosinophils % Basophils % Nucleated RBC % Sodium Potassium Chloride Carbon Dioxide Anion Gap BUN Creatinine Est GFR (CKD-EPI)AfAm Est GFR (CKD-EPI)NonAf POC Glucometer 209 189 176 Random Glucose Calcium Total Bilirubin AST ALT Alkaline Phosphatase Total Protein Albumin Triglycerides Cholesterol Total LDL Cholesterol HDL Cholesterol 01/21/19 01/21/19 01/21/19 07:10 07:10 11:12 WBC 6.1 RBC 3.57 L Hgb 10.9 L Hct 33.1 L MCV 92.8 MCH 30.4 MCHC 32.8 RDW 17.2 H Plt Count 156 MPV 8.8 Absolute Neuts (auto) 4.4 Neutrophils % 71.3 Lymphocytes % 19.5 D Monocytes % 7.6 Eosinophils % 1.3 D Basophils % 0.3 Nucleated RBC % 0 Sodium 135 L Potassium 4.9 Chloride 98 Carbon Dioxide 23 Anion Gap 14 BUN 84.7 H Creatinine 9.8 H* Est GFR (CKD-EPI)AfAm 6.02 Est GFR (CKD-EPI)NonAf 5.19 POC Glucometer 179 Random Glucose 193 H Calcium 8.5 Total Bilirubin 0.3 AST 7 L ALT 15 Alkaline Phosphatase 138 H Total Protein 7.8 Albumin 3.6 Triglycerides 357 H Cholesterol 176 Total LDL Cholesterol 96 HDL Cholesterol 31 L S1 S2 RRR Lungs clear Abd- soft, obese, tender epigastrium No edema PLAN Add oxycodone Morphine prn Clears Zofran as needed triglycerides are high Hd per renal Problem List - Problems (1) ESRD (end stage renal disease) on dialysis Code(s): N18.6 - END STAGE RENAL DISEASE; Z99.2 - DEPENDENCE ON RENAL DIALYSIS (2) Pancreatitis Code(s): K85.90 - ACUTE PANCREATITIS WITHOUT NECROSIS OR INFECTION, UNSP Qualifiers: Chronicity: acute Pancreatitis type: unspecified pancreatitis type Acute pancreatitis complication: unspecified Qualified Code(s): K85.90 - Acute pancreatitis without necrosis or infection, unspecified (3) Abdominal pain Code(s): R10.9 - UNSPECIFIED ABDOMINAL PAIN Qualifiers:
--- NOTE | 2019-01-21 18:36 | CON.GI ---
Consult Consult Specialty:: GI - History of Present Illness History of Present Illness: 58 y/o Male with ESRD , mesenteric artey calcifications, chronic abdominal pain was admitted because of epigastric pain, elevated lipase 1999. He has been receving paain medication and IV hydration. 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 No: Aortic Stenosis Gastrointestinal: Yes: GERD Renal/: Yes: Renal Failure, Hemodialysis Musculoskeletal: Yes: Other (peripheral vascular disease) Endocrine: Yes: Diabetes Mellitus - Past Surgical History Past Surgical History: Yes: Amputation, AV Fistula/Graft, CABG - Alcohol/Substance Use Hx Alcohol Use: No History of Substance Use: reports: None - Smoking History Smoking history: Never smoked Have you smoked in the past 12 months: No Aproximately how many cigarettes per day: 0 - Social History Usual Living Arrangement: With Spouse ADL: Independent History of Recent Travel: No Home Medications - Allergies Allergies/Adverse Reactions: Allergies Allergy/AdvReac Type Severity Reaction Status Date / Time No Known Drug Allergies Allergy Verified 01/19/19 23:45 - Home Medications Home Medications: Ambulatory Orders Albuterol 2.5/Ipratropium 0.5 [Duoneb -] 1 amp NEB TID 04/27/18 Aspirin [Ecotrin] 81 mg PO DAILY 04/27/18 Esomeprazole Magnesium [Nexium 24Hr] 40 mg PO DAILY 04/27/18 Folic Acid/Vit B Complex and C [Renal-Kelly Tablet] 0.8 mg PO DAILY 04/27/18 Loratadine [Claritin] 10 mg PO DAILY 04/27/18 Olopatadine HCl [Pataday] 1 drop OU DAILY 04/27/18 Omeprazole 40 mg PO DAILY 04/27/18 Sevelamer Carbonate [Renvela -] 1,600 mg PO TID 04/27/18 Acetaminophen [Tylenol .Regular Strength -] 325 mg PO Q3H PRN tablet 05/04/18 Atorvastatin Ca [Lipitor] 40 mg PO HS tablet 05/04/18 Insulin (Novolog 70/30) [Novolog Mix 70/30 Vial -] 24 units SQ BIDAC units 11/14 Midodrine HCl [Proamatine -] 10 mg PO ASDIR 08/07/18 Pantoprazole Sodium [Protonix] 40 mg PO DAILY #7 tablet. 08/07/18 Calcium Carbonate/Simethicone [Maalox Advanced Tab Chew] 1 each PO DAILY PRN Physical Exam-GI Vital Signs: Vital Signs Temperature 98.2 F 01/21/19 14:49 Pulse Rate 77 01/21/19 14:49 Respiratory Rate 18 01/21/19 14:49 Blood Pressure 159/74 01/21/19 14:49 O2 Sat by Pulse Oximetry (%) 99 01/21/19 09:00 Constitutional: Yes: Obese Eyes: Yes: Conjunctiva Clear HENT: Yes: Atraumatic Neck: Yes: Supple Cardiovascular: Yes: Regular Rate and Rhythm Respiratory: Yes: CTA Bilaterally ...Palpate: Yes: Soft. No: Firm/Rigid, Guarding, Hepatomegaly, Mass, Pulsatile Mass, Splenomegaly, Tenderness, Epigastium (--on pain medication) Labs: CBC, BMP 01/21/19 07:10 01/21/19 07:10 Home Medications Medication Instructions Recorded Albuterol 2.5/Ipratropium 0.5 1 amp NEB TID 04/27/18 [Duoneb -] Aspirin [Ecotrin] 81 mg PO DAILY 04/27/18 Esomeprazole Magnesium [Nexium 40 mg PO DAILY 04/27/18 24Hr] Folic Acid/Vit B Complex and C 0.8 mg PO DAILY 04/27/18 [Renal-Kelly Tablet] Loratadine [Claritin] 10 mg PO DAILY 04/27/18 Olopatadine HCl [Pataday] 1 drop OU DAILY 04/27/18 Omeprazole 40 mg PO DAILY 04/27/18 Sevelamer Carbonate [Renvela -] 1,600 mg PO TID 04/27/18 Acetaminophen [Tylenol .Regular 325 mg PO Q3H PRN tablet 05/04/18 Strength -] Atorvastatin Ca [Lipitor] 40 mg PO HS tablet 05/04/18 Insulin (Novolog 70/30) [Novolog 24 units SQ BIDAC units 05/04/18 Mix 70/30 Vial -] Midodrine HCl [Proamatine -] 10 mg PO ASDIR 08/07/18 Pantoprazole Sodium [Protonix] 40 mg PO DAILY #7 tablet. 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
[2019-01-21] MEDS: HEPARIN NA (PORCINE) 5,000 UNITS/ML 1ML VIAL SQ SCH ×2 (21:39→21:46)
[2019-01-22] MEDS ORDERED: ZOLPIDEM TARTRATE 5 MG TABLET PO ONE (02:35)
[2019-01-22] MEDS: INSULIN SLIDING SCALE (NOVOLOG) 1 VIAL SQ SCH ×4 (07:04→21:03)
[2019-01-22 08:15] LABS: BLOOD UREA NITROGEN 48.5 mg/dL (7-18); CREATININE 7.3 mg/dL (0.55-1.3)
[2019-01-22] MEDS: ALBUTEROL SO4 2.5/IPRATROPIUM 0.5 INH SOL 3 ML VIAL.NEB. NEB SCH ×3 (08:15→21:10)
[2019-01-22 08:16] LABS: ALBUMIN 3.3 g/dl (3.4-5.0); BILIRUBIN,TOTAL 0.3 mg/dL (0.2-1); TOT PROT 6.9 g/dl (6.4-8.2)
[2019-01-22 08:34] LABS: BASO % 0.6 % (0-2.0); EOS % 2.8 % (0-4.5); HEMOGLOBIN 9.9 GM/dL (11.7-16.9); LYMPH % 24.2 % (8-40); MCH 30.5 pg (25.7-33.7); MEAN CELL VOLUME 92.5 fl (80-96); MEAN PLT VOLUME 8.7 fl (7.5-11.1); MONO % 12.2 % (3.8-10.2); NEUT % 60.2 % (42.8-82.8); PLATELET COUNT 137 K/MM3 (134-434); RBC 3.24 M/mm3 (4.00-5.60); RDW 17.5 % (11.9-15.9); WHITE BLOOD COUNT 4.6 K/mm3 (4.0-10.0)
[2019-01-22] MEDS ORDERED: PT OWN MED DRAWER 7, Y5N ONE ×2 (08:45→18:10)
[2019-01-22] MEDS: SEVELAMER CARBONATE 800 MG TAB (FP) PO SCH ×3 (08:52→17:57)
[2019-01-22] MEDS: PANTOPRAZOLE SODIUM 40 MG VIAL IVPUSH SCH (09:02)
[2019-01-22] MEDS: MIDODRINE HCL 5 MG TABLET PO SCH ×3 (09:07→18:06)
[2019-01-22] MEDS: HEPARIN NA (PORCINE) 5,000 UNITS/ML 1ML VIAL SQ SCH ×3 (09:08→21:00)
[2019-01-22] MEDS: MORPHINE SULFATE 2 MG/ML VIAL IVPUSH PRN (09:09)
--- NOTE | 2019-01-22 09:45 | PN ---
Progress Note (short form) - Note Progress Note: RENAL 58 WITH DM HTN ESRD VASCULOPATH CLINICALLY HAS MESENTERIC ISCHEMIA ACUTE PANCREATITIS DIALYZED THURS 1.5 REMOVED CHEST CLEAR ABD FIRM BUT NON TENDER EXT NO EDEMA RT ARM AVG CT ABD PANCREAS LOOKED OK FUP ON ABD MRI CASE D/W DR MORALES THIS AM ADVANCE TO FULL LIQUID DIET DC MORPHINE USE OXYCODONE ADD CREON PANCREATIC ENZYME SUPPLEMENT IF TOLERATES THEN HD SAT ADVANCE DIET SLOWLY ABD DC HOME IF STABLE HD SAT
[2019-01-22] MEDS ORDERED: EPOETIN ALFA 20,000 UNIT/1 ML VIAL SQ ONE (10:00)
[2019-01-22] MEDS: LIPASE/PROTEASE/AMYLASE 36,000 UNIT CAPSULE PO SCH ×2 (13:03→17:58)
--- NOTE | 2019-01-22 13:13 | PN ---
Progress Note (short form) - Note Progress Note: pain is better No nausea Vital Signs - 24 hr 01/21/19 01/21/19 01/21/19 14:49 18:30 21:00 Temperature 98.2 F 97.6 F Pulse Rate 77 92 H Respiratory 18 18 Rate Blood Pressure 159/74 141/63 O2 Sat by Pulse 95 Oximetry (%) 01/21/19 01/22/19 21:26 06:00 Temperature 98.1 F 98.2 F Pulse Rate 77 85 Respiratory 18 18 Rate Blood Pressure 142/65 127/77 O2 Sat by Pulse Oximetry (%) Current Medications Generic Name Dose Route Start Last Admin Trade Name Freq PRN Reason Stop Dose Admin Albuterol/Ipratropium 1 amp 01/20/19 14:00 01/22/19 08:15 Duoneb - NEB 1 amp RTID VALERIA Administration Epoetin Jared 10,000 unit 01/23/19 10:00 Procrit - IVPUSH 01/23/19 10:01 ONCE ONE Heparin Sodium (Porcine) 5,000 unit 01/21/19 22:00 01/22/19 09:18 Heparin - SQ Not Given BID [facility] Insulin Aspart 1 vial 01/20/19 16:30 01/22/19 12:17 Novolog Vial Sliding Scale - SQ Not Given ACHS [facility] Protocol Midodrine 10 mg 01/21/19 14:00 01/22/19 09:07 Proamatine - PO 10 mg TID-MID VALERIA Administration Non-Formulary Medication 1 drop 01/21/19 10:00 Olopatadine Hcl [Pataday] OU DAILY [facility] Oxycodone HCl 10 mg 01/21/19 12:14 01/21/19 12:36 Roxicodone - PO 10 mg Q4H PRN Administration PAIN 6-10; if morphine nt wrk Pancrelipase 1 cap 01/22/19 12:00 01/22/19 13:03 Kaylene Hamilton 36,000 Units Capsule PO 1 cap TIDCM VALERIA Administration Pantoprazole Sodium 40 mg 01/21/19 10:00 01/22/19 09:02 Protonix Iv IVPUSH 40 mg DAILY VALERIA Administration Sevelamer Carbonate 1,600 mg 01/20/19 17:30 01/22/19 13:03 Renvela - PO 1,600 mg TIDCM VALREIA Administration Laboratory Results - last 24 hr 01/21/19 01/21/19 01/21/19 07:10 07:10 16:12 WBC RBC Hgb Hct MCV MCH MCHC RDW Plt Count MPV Absolute Neuts (auto) Neutrophils % Lymphocytes % Monocytes % Eosinophils % Basophils % Nucleated RBC % Sodium Potassium Chloride Carbon Dioxide Anion Gap BUN Creatinine Est GFR (CKD-EPI)AfAm Est GFR (CKD-EPI)NonAf POC Glucometer 173 Random Glucose Calcium Total Bilirubin AST ALT Alkaline Phosphatase Total Protein Albumin Lipase Hep Bs Antigen Negative Hep C Ab Diagnostic <0.1 01/21/19 01/22/19 01/22/19 21:28 06:55 06:55 WBC 4.6 RBC 3.24 L Hgb 9.9 L Hct 30.0 L MCV 92.5 MCH 30.5 MCHC 33.0 RDW 17.5 H Plt Count 137 MPV 8.7 Absolute Neuts (auto) 2.7 Neutrophils % 60.2 Lymphocytes % 24.2 D Monocytes % 12.2 H Eosinophils % 2.8 D Basophils % 0.6 Nucleated RBC % 0 Sodium 136 Potassium 4.0 Chloride 96 L Carbon Dioxide 31 Anion Gap 9 BUN 48.5 H Creatinine 7.3 H Est GFR (CKD-EPI)AfAm 8.59 Est GFR (CKD-EPI)NonAf 7.42 POC Glucometer 161 Random Glucose 162 H Calcium 8.0 L Total Bilirubin 0.3 AST 8 L ALT 14 Alkaline Phosphatase 117 Total Protein 6.9 Albumin 3.3 L Lipase 182 Hep Bs Antigen Hep C Ab Diagnostic 01/22/19 01/22/19 07:03 12:15 WBC RBC Hgb Hct MCV MCH MCHC RDW Plt Count MPV Absolute Neuts (auto) Neutrophils % Lymphocytes % Monocytes % Eosinophils % Basophils % Nucleated RBC % Sodium Potassium Chloride Carbon Dioxide Anion Gap BUN Creatinine Est GFR (CKD-EPI)AfAm Est GFR (CKD-EPI)NonAf POC Glucometer 174 147 Random Glucose Calcium Total Bilirubin AST ALT Alkaline Phosphatase Total Protein Albumin Lipase Hep Bs Antigen Hep C Ab Diagnostic S1 S2 RRR Lungs clear Abd- soft, obese, tender epigastrium No edema PLAN Add oxycodone discontinue morphine advance diet Zofran as needed triglycerides are high Hd per renal spoke with nephrology abdomen MRI noted Possible DC tomorrow Problem List - Problems (1) ESRD (end stage renal disease) on dialysis Code(s): N18.6 - END STAGE RENAL DISEASE; Z99.2 - DEPENDENCE ON RENAL DIALYSIS (2) Pancreatitis Code(s): K85.90 - ACUTE PANCREATITIS WITHOUT NECROSIS OR INFECTION, UNSP Qualifiers: Chronicity: acute Pancreatitis type: unspecified pancreatitis type Acute pancreatitis complication: unspecified Qualified Code(s): K85.90 - Acute pancreatitis without necrosis or infection, unspecified (3) Abdominal pain Code(s): R10.9 - UNSPECIFIED ABDOMINAL PAIN Qualifiers: (4) Anemia Code(s): D64.9 - ANEMIA, UNSPECIFIED Qualifiers: Anemia type: unspecified type Qualified Code(s): D64.9 - Anemia, unspecified
[2019-01-22] MEDS ORDERED: INSULIN (NOVOLOG) ASPART 100 UNITS/ML 10ML VIAL ONE (18:10)
[2019-01-23] MEDS: INSULIN SLIDING SCALE (NOVOLOG) 1 VIAL SQ SCH ×4 (06:42→21:28)
[2019-01-23] MEDS ORDERED: PT OWN MED DRAWER 7, Y5N ONE ×5 (07:50→21:02)
[2019-01-23] MEDS: LIPASE/PROTEASE/AMYLASE 36,000 UNIT CAPSULE PO SCH ×3 (07:58→18:02)
[2019-01-23] MEDS: SEVELAMER CARBONATE 800 MG TAB (FP) PO SCH ×3 (07:58→18:02)
[2019-01-23] MEDS ORDERED: EPOETIN ALFA 10,000 UNIT/1 ML VIAL IVPUSH ONE (08:00)
[2019-01-23] MEDS: ALBUTEROL SO4 2.5/IPRATROPIUM 0.5 INH SOL 3 ML VIAL.NEB. NEB SCH ×3 (08:00→20:10)
[2019-01-23] MEDS: HEPARIN NA (PORCINE) 5,000 UNITS/ML 1ML VIAL SQ SCH ×2 (11:40→21:35)
[2019-01-23] MEDS: MIDODRINE HCL 5 MG TABLET PO SCH ×3 (11:40→18:06)
--- NOTE | 2019-01-23 12:14 | PN ---
Progress Note, Physician History of Present Illness: 58 year old male, with a significant PMH of ESRD on dialysis (/), diabetes mellitus (poorly controlled, wet gangrene, RUE digit amputation), PUD, prior bleeding gastric ulcers found on EGD, mesenteric ischemia, and coronary artery disease (s/p CABG 2017), who presents to the ED for evaluation of abdominal pain for 2 days, and chest pain for 1 day. Patient describes the abdominal pain as diffuse, progressively worsening, and constant. Patient notes the chest pain was sudden onset as rest, and notes its a diffuse pressure that is constant at rest. He reports associated SOB and dyspnea on exertion. Patient had dialysis earlier today, but was unable to complete it. Pt is better today No SOB possible DC in AM - Current Medication List Current Medications: Active Medications Albuterol/Ipratropium (Duoneb -) 1 amp NEB RTID [facility] Last Admin: 01/23/19 08:00 Dose: 1 amp Heparin Sodium (Porcine) (Heparin -) 5,000 unit SQ BID [facility] Last Admin: 01/23/19 11:40 Dose: Not Given Insulin Aspart (Novolog Vial Sliding Scale -) 1 vial SQ ACHS [facility]; Protocol Last Admin: 01/23/19 06:42 Dose: 4 units Midodrine (Proamatine -) 10 mg PO TID-MID [facility] Last Admin: 01/23/19 11:40 Dose: Not Given Non-Formulary Medication (Olopatadine Hcl [Pataday]) 1 drop OU DAILY [facility] Oxycodone HCl (Roxicodone -) 10 mg PO Q4H PRN PRN Reason: PAIN 6-10; if morphine nt wrk Last Admin: 01/21/19 12:36 Dose: 10 mg Pancrelipase (Creon Dr 36,000 Units Capsule) 1 cap PO TIDCM [facility] Last Admin: 01/23/19 07:58 Dose: 1 cap Pantoprazole Sodium (Protonix Iv) 40 mg IVPUSH DAILY [facility] Last Admin: 01/22/19 09:02 Dose: 40 mg Sevelamer Carbonate (Renvela -) 1,600 mg PO TIDCM [facility] Last Admin: 01/23/19 07:58 Dose: 1,600 mg - Objective Vital Signs: Vital Signs Temperature 97.8 F 01/23/19 11:50 Pulse Rate 75 01/23/19 11:50 Respiratory Rate 18 01/23/19 11:50 Blood Pressure 114/63 01/23/19 11:50 O2 Sat by Pulse Oximetry (%) 94 L 01/22/19 21:00 Constitutional: Yes: No Distress Eyes: Yes: Conjunctiva Clear, EOM Intact HENT: Yes: Atraumatic, Normocephalic Neck: Yes: Supple, Trachea Midline Cardiovascular: Yes: Regular Rate and Rhythm, S1, S2 Respiratory: Yes: Regular, CTA Bilaterally Gastrointestinal: Yes: Normal Bowel Sounds, Soft Edema: No Peripheral Pulses WNL: Yes Labs: CBC, BMP 01/22/19 06:55 01/22/19 06:55 Problem List - Problems (1) Acute pancreatitis Code(s): K85.90 - ACUTE PANCREATITIS WITHOUT NECROSIS OR INFECTION, UNSP (2) ESRD (end stage renal disease) on dialysis Code(s): N18.6 - END STAGE RENAL DISEASE; Z99.2 - DEPENDENCE ON RENAL DIALYSIS (3) Pancreatitis Code(s): K85.90 - ACUTE PANCREATITIS WITHOUT NECROSIS OR INFECTION, UNSP Qualifiers: Chronicity: acute Pancreatitis type: unspecified pancreatitis type Acute pancreatitis complication: unspecified Qualified Code(s): K85.90 - Acute pancreatitis without necrosis or infection, unspecified (4) Abdominal pain Code(s): R10.9 - UNSPECIFIED ABDOMINAL PAIN Qualifiers: (5) Anemia Code(s): D64.9 - ANEMIA, UNSPECIFIED Qualifiers: Anemia type: unspecified type Qualified Code(s): D64.9 - Anemia, unspecified (6) Cholelithiasis Code(s): K80.20 - CALCULUS OF GALLBLADDER W/O CHOLECYSTITIS W/O OBSTRUCTION Qualifiers: Cholelithiasis location: gallbladder and bile duct Cholecystitis presence: without cholecystitis Biliary obstruction: without biliary obstruction Qualified Code(s): K80.70 - Calculus of gallbladder and bile duct without cholecystitis without obstruction Assessment/Plan (1) Acute pancreatitis Code(s): K85.90 - ACUTE PANCREATITIS WITHOUT NECROSIS OR INFECTION, UNSP (2) ESRD (end stage renal disease) on dialysis Code(s): N18.6 - END STAGE RENAL DISEASE; Z99.2 - DEPENDENCE ON RENAL DIALYSIS (3) Pancreatitis Code(s): K85.90 - ACUTE PANCREATITIS WITHOUT NECROSIS OR INFECTION, UNSP Qualifiers: Chronicity: acute Pancreatitis type: unspecified pancreatitis type Acute pancreatitis complication: unspecified (4) Abdominal pain Code(s): R10.9 - UNSPECIFIED ABDOMINAL PAIN Qualifiers: (5) Anemia Code(s): D64.9 - ANEMIA, UNSPECIFIED Qualifiers: Anemia type: unspecified type Qualified Code(s): D64.9 - Anemia, unspecified (6) Cholelithiasis Code(s): K80.20 - CALCULUS OF GALLBLADDER W/O CHOLECYSTITIS W/O OBSTRUCTION Qualifiers: Cholelithiasis location: gallbladder and bile duct Cholecystitis presence: without cholecystitis Biliary obstruction: without biliary obstruction Qualified Code(s): K80.70 - Calculus of gallbladder and bile duct without cholecystitis without obstruction
[2019-01-23] MEDS: PANTOPRAZOLE SODIUM 40 MG VIAL IVPUSH SCH (12:36)
[2019-01-23] MEDS ORDERED: INSULIN (NOVOLOG) ASPART 100 UNITS/ML 10ML VIAL ONE (18:10)
[2019-01-24] MEDS: INSULIN SLIDING SCALE (NOVOLOG) 1 VIAL SQ SCH ×4 (06:15→22:40)
[2019-01-24] MEDS ORDERED: PT OWN MED DRAWER 7, Y5N ONE (08:31)
[2019-01-24] MEDS: ALBUTEROL SO4 2.5/IPRATROPIUM 0.5 INH SOL 3 ML VIAL.NEB. NEB SCH ×3 (08:48→21:05)
[2019-01-24] MEDS: LIPASE/PROTEASE/AMYLASE 36,000 UNIT CAPSULE PO SCH ×3 (09:13→17:27)
[2019-01-24] MEDS: PANTOPRAZOLE SODIUM 40 MG VIAL IVPUSH SCH (09:13)
[2019-01-24] MEDS: HEPARIN NA (PORCINE) 5,000 UNITS/ML 1ML VIAL SQ SCH ×2 (09:13→22:41)
[2019-01-24] MEDS: MIDODRINE HCL 5 MG TABLET PO SCH ×3 (09:13→17:27)
[2019-01-24] MEDS: SEVELAMER CARBONATE 800 MG TAB (FP) PO SCH ×3 (09:13→17:28)
--- NOTE | 2019-01-24 17:43 | PN ---
Progress Note, Physician History of Present Illness: 58 year old male, with a significant PMH of ESRD on dialysis (/), diabetes mellitus (poorly controlled, wet gangrene, RUE digit amputation), PUD, prior bleeding gastric ulcers found on EGD, mesenteric ischemia, and coronary artery disease (s/p CABG 2017), who presents to the ED for evaluation of abdominal pain for 2 days, and chest pain for 1 day. Patient describes the abdominal pain as diffuse, progressively worsening, and constant. Patient notes the chest pain was sudden onset as rest, and notes its a diffuse pressure that is constant at rest. He reports associated SOB and dyspnea on exertion. Patient had dialysis earlier today, but was unable to complete it. Pt is better today No SOB No chest pain No Abd pain - Current Medication List Current Medications: Active Medications Albuterol/Ipratropium (Duoneb -) 1 amp NEB RTID [facility] Last Admin: 01/24/19 14:04 Dose: 1 amp Heparin Sodium (Porcine) (Heparin -) 5,000 unit SQ BID [facility] Last Admin: 01/24/19 09:13 Dose: Not Given Insulin Aspart (Novolog Vial Sliding Scale -) 1 vial SQ ACHS [facility]; Protocol Last Admin: 01/24/19 17:25 Dose: 6 units Midodrine (Proamatine -) 10 mg PO TID-MID [facility] Last Admin: 01/24/19 17:27 Dose: Not Given Non-Formulary Medication (Olopatadine Hcl [Pataday]) 1 drop OU DAILY [facility] Pancrelipase (Creon Dr 36,000 Units Capsule) 1 cap PO TIDCM [facility] Last Admin: 01/24/19 17:27 Dose: 1 cap Pantoprazole Sodium (Protonix Iv) 40 mg IVPUSH DAILY [facility] Last Admin: 01/24/19 09:13 Dose: 40 mg Sevelamer Carbonate (Renvela -) 1,600 mg PO TIDCM [facility] Last Admin: 01/24/19 17:28 Dose: 1,600 mg - Objective Vital Signs: Vital Signs Temperature 97.6 F 01/24/19 14:08 Pulse Rate 71 01/24/19 14:08 Respiratory Rate 18 01/24/19 14:08 Blood Pressure 127/67 01/24/19 14:08 O2 Sat by Pulse Oximetry (%) 97 01/24/19 10:00 Constitutional: Yes: No Distress, Calm Eyes: Yes: Conjunctiva Clear, EOM Intact HENT: Yes: Atraumatic, Normocephalic Neck: Yes: Supple, Trachea Midline Cardiovascular: Yes: Regular Rate and Rhythm, S1, S2 Respiratory: Yes: Regular, CTA Bilaterally Gastrointestinal: Yes: Normal Bowel Sounds, Soft Edema: No Peripheral Pulses WNL: Yes Labs: CBC, BMP 01/22/19 06:55 01/22/19 06:55 Problem List - Problems (1) Acute pancreatitis Code(s): K85.90 - ACUTE PANCREATITIS WITHOUT NECROSIS OR INFECTION, UNSP (2) ESRD (end stage renal disease) on dialysis Code(s): N18.6 - END STAGE RENAL DISEASE; Z99.2 - DEPENDENCE ON RENAL DIALYSIS (3) Pancreatitis Code(s): K85.90 - ACUTE PANCREATITIS WITHOUT NECROSIS OR INFECTION, UNSP Qualifiers: Chronicity: acute Pancreatitis type: unspecified pancreatitis type Acute pancreatitis complication: unspecified Qualified Code(s): K85.90 - Acute pancreatitis without necrosis or infection, unspecified (4) Abdominal pain Code(s): R10.9 - UNSPECIFIED ABDOMINAL PAIN Qualifiers: (5) Anemia Code(s): D64.9 - ANEMIA, UNSPECIFIED Qualifiers: Anemia type: unspecified type Qualified Code(s): D64.9 - Anemia, unspecified (6) Cholelithiasis Code(s): K80.20 - CALCULUS OF GALLBLADDER W/O CHOLECYSTITIS W/O OBSTRUCTION Qualifiers: Cholelithiasis location: gallbladder and bile duct Cholecystitis presence: without cholecystitis Biliary obstruction: without biliary obstruction Qualified Code(s): K80.70 - Calculus of gallbladder and bile duct without cholecystitis without obstruction Assessment/Plan (1) Acute pancreatitis Code(s): K85.90 - ACUTE PANCREATITIS WITHOUT NECROSIS OR INFECTION, UNSP (2) ESRD (end stage renal disease) on dialysis Code(s): N18.6 - END STAGE RENAL DISEASE; Z99.2 - DEPENDENCE ON RENAL DIALYSIS (3) Pancreatitis Code(s): K85.90 - ACUTE PANCREATITIS WITHOUT NECROSIS OR INFECTION, UNSP Qualifiers: Chronicity: acute Pancreatitis type: unspecified pancreatitis type Acute pancreatitis complication: unspecified (4) Abdominal pain Code(s): R10.9 - UNSPECIFIED ABDOMINAL PAIN Qualifiers: (5) Anemia Code(s): D64.9 - ANEMIA, UNSPECIFIED Qualifiers: Anemia type: unspecified type Qualified Code(s): D64.9 - Anemia, unspecified (6) Cholelithiasis Code(s): K80.20 - CALCULUS OF GALLBLADDER W/O CHOLECYSTITIS W/O OBSTRUCTION Qualifiers: Cholelithiasis location: gallbladder and bile duct Cholecystitis presence: without cholecystitis Biliary obstruction: without biliary obstruction Qualified Code(s): K80.70 - Calculus of gallbladder and bile duct without cholecystitis without obstruction Pt is feeling better No Fever Pt is tolerating food
[2019-01-24] MEDS ORDERED: INSULIN (NOVOLOG) ASPART 100 UNITS/ML 10ML VIAL ONE (18:45)
[2019-01-25 01:59] VITALS: TEMP 97.5
[2019-01-25] MEDS: INSULIN SLIDING SCALE (NOVOLOG) 1 VIAL SQ SCH ×2 (06:27→12:16)
[2019-01-25] MEDS: ALBUTEROL SO4 2.5/IPRATROPIUM 0.5 INH SOL 3 ML VIAL.NEB. NEB SCH (07:25)
[2019-01-25] MEDS ORDERED: PT OWN MED DRAWER 7, Y5N ONE ×2 (08:47→12:16)
[2019-01-25] MEDS: LIPASE/PROTEASE/AMYLASE 36,000 UNIT CAPSULE PO SCH ×2 (08:49→12:18)
[2019-01-25] MEDS: SEVELAMER CARBONATE 800 MG TAB (FP) PO SCH ×2 (09:06→12:18)
[2019-01-25] MEDS: HEPARIN NA (PORCINE) 5,000 UNITS/ML 1ML VIAL SQ SCH (09:07)
[2019-01-25] MEDS: PANTOPRAZOLE SODIUM 40 MG VIAL IVPUSH SCH (09:08)
[2019-01-25] MEDS: MIDODRINE HCL 5 MG TABLET PO SCH (09:08)
[2019-01-25 09:18] VITALS: BP 140/92; PULSE 92
--- NOTE | 2019-01-25 11:17 | DS ---
Physical Examination Vital Signs: Vital Signs Temperature 97.5 F L 01/25/19 06:00 Pulse Rate 92 H 01/25/19 09:00 Respiratory Rate 18 01/25/19 09:00 Blood Pressure 140/92 01/25/19 09:00 O2 Sat by Pulse Oximetry (%) 97 01/24/19 21:00 Findings/Remarks: Pt seen/ examined chart reviewed awake/ comfortable denies pain wants to go home eats ok Constitutional: Yes: No Distress, Calm Eyes: Yes: Conjunctiva Clear Neck: Yes: Supple Cardiovascular: Yes: Regular Rate and Rhythm Respiratory: Yes: CTA Bilaterally Gastrointestinal: Yes: Soft, Abdomen, Obese Extremities: Yes: Amputation Edema: No Neurological: Yes: Alert Psychiatric: Yes: Alert Labs: CBC, BMP 01/22/19 06:55 01/22/19 06:55 Discharge Summary Reason For Visit: PANCREATITIS Current Active Problems Acute pancreatitis (Acute) ESRD (end stage renal disease) on dialysis (Acute) Intestinal angina (Acute) Pancreatitis (Acute) Hospital Course: pt with extensive pmhx admitted for abd pain extensive work up =-- ct scan/ mri-ok Likely angina resolved Now much better gi followed start on creon diet discussed will d/c home f/u with pmd in one week meds reconcilled creon added will follow Condition: Stable - Instructions Disposition: HOME - Home Medications Comprehensive Discharge Medication List: Ambulatory Orders Albuterol 2.5/Ipratropium 0.5 [Duoneb -] 1 amp NEB TID 04/27/18 Aspirin [Ecotrin] 81 mg PO DAILY 04/27/18 Esomeprazole Magnesium [Nexium 24Hr] 40 mg PO DAILY 04/27/18 Folic Acid/Vit B Complex and C [Renal-Kelly Tablet] 0.8 mg PO DAILY 04/27/18 Loratadine [Claritin] 10 mg PO DAILY 04/27/18 Olopatadine HCl [Pataday] 1 drop OU DAILY 04/27/18 Sevelamer Carbonate [Renvela -] 1,600 mg PO TID 04/27/18 Acetaminophen [Tylenol .Regular Strength -] 325 mg PO Q3H PRN tablet 05/04/18 Atorvastatin Ca [Lipitor] 40 mg PO HS tablet 05/04/18 Insulin (Novolog 70/30) [Novolog Mix 70/30 Vial -] 24 units SQ BIDAC units 11/14 Midodrine HCl [Proamatine -] 10 mg PO ASDIR 08/07/18 Pantoprazole Sodium [Protonix] 40 mg PO DAILY #7 tablet. 08/07/18 Calcium Carbonate/Simethicone [Maalox Advanced Tab Chew] 1 each PO DAILY PRN Lipase/Protease/Amylase [Kaylene Hamilton 36,000 Units Capsule] 1 cap PO TIDCM #90 capsule. 01/25/19
== END 2019-01-25 13:42 | disposition home or self-care (01) | DRG 438 ==
LOC: JER 23:04 → JERBED 01-20 10:45 → J5S 01-20 18:16
PROVIDERS: ADMIT Internal Medicine; ATTEND Internal Medicine
PROC: 5A1D70Z Performance of Urinary Filtration, Intermittent, Less than 6 Hours Per Day (ICD-10-PCS; principal; 2019-01-21)
PROC: 5A1D70Z Performance of Urinary Filtration, Intermittent, Less than 6 Hours Per Day (ICD-10-PCS; 2019-01-23)
DX: K85.90 Acute pancreatitis without necrosis or infection, unspecified (principal); N18.6 End stage renal disease; I12.0 Hypertensive chronic kidney disease with stage 5 chronic kidney disease or end stage renal disease; K55.1 Chronic vascular disorders of intestine; I25.10 Atherosclerotic heart disease of native coronary artery without angina pectoris; E11.22 Type 2 diabetes mellitus with diabetic chronic kidney disease; D64.9 Anemia, unspecified; E78.5 Hyperlipidemia, unspecified; E11.42 Type 2 diabetes mellitus with diabetic polyneuropathy; K21.9 Gastro-esophageal reflux disease without esophagitis; E11.51 Type 2 diabetes mellitus with diabetic peripheral angiopathy without gangrene; R10.9 Unspecified abdominal pain; E66.9 Obesity, unspecified; Z68.32 Body mass index [BMI] 32.0-32.9, adult; Z99.2 Dependence on renal dialysis; Z89.022 Acquired absence of left finger(s); Z95.1 Presence of aortocoronary bypass graft; Z87.11 Personal history of peptic ulcer disease
CPT/HCPCS: 36415; 71045-TC-FY; 74176-TC; 74181-TC; 76705-TC; 80053; 80061; 82550; 82962; 83605; 83690; 83721; 83880; 84484; 85025; 86803; 87340; 93005; 93010; 94640; 99285-25; J0131; J0885; J1644; J7030

== ENCOUNTER 2019-02-24 05:36 | Day surgery (SDC) | payer OTHER | END 2019-02-24 11:22 | disposition home or self-care (01) | LOC: JASU-SURG 05:36 ==

== ENCOUNTER 2019-02-25 13:00 | Inpatient (IN) | payer OTHER ==
[2019-02-25] MEDS ORDERED: morphine SULFATE 4 MG/ML VIAL IVPUSH ONE (14:08)
[2019-02-25] MEDS ORDERED: SODIUM CHLORIDE 1,000 ML IV STA (14:08)
--- NOTE | 2019-02-25 14:36 | PDOC ---
History of Present Illness - General Chief Complaint: Pain Stated Complaint: ABD. PAIN/ VOMITING Time Seen by Provider: 02/25/19 13:49 Past History - Past Medical History Allergies/Adverse Reactions: Allergies Allergy/AdvReac Type Severity Reaction Status Date / Time No Known Drug Allergies Allergy Verified 02/25/19 13:17 Home Medications: Ambulatory Orders Albuterol 2.5/Ipratropium 0.5 [Duoneb -] 1 amp NEB TID 04/27/18 Aspirin [Ecotrin] 81 mg PO DAILY 04/27/18 Loratadine [Claritin] 10 mg PO DAILY 04/27/18 Sevelamer Carbonate [Renvela -] 1,600 mg PO TID 04/27/18 Atorvastatin Ca [Lipitor] 40 mg PO HS tablet 05/04/18 Diclofenac Sodium [Voltaren] 100 gm TP PRN 02/23/19 Esomeprazole Magnesium [Nexium 24Hr] 40 mg PO DAILY 02/23/19 Furosemide [Lasix -] 80 mg PO DAILY 02/23/19 Insulin (Novolog 70/30) [Novolog Mix 70/30 Vial -] 30 units SQ BIDAC 02/23/19 Insulin Glargine,Hum.rec.anlog [Lantus] 30 unit SQ BID 02/23/19 Midodrine HCl [Proamatine -] 5 mg PO TID 02/23/19 Oxycodone HCl/Acetaminophen [Percocet 5/325 -] 1 tab PO Q6H #40 tab MDD 4 Sulfamethoxazole/Trimethoprim [Bactrim Ds -] 1 tab PO BID #14 tablet 02/24/19 Anemia: No Cardiac Disorders: Yes (Open heart sx 2018 triple bypass) COPD: No DVT: No Diabetes: Yes (30 yrs) Dialysis: Yes (TUES,THR,SAT RT ARM DIALYSIS ACCESS) GI Disorders: Yes (GI BLEED) HTN: Yes Hypercholesterolemia: Yes - Surgical History Cardiac Surgery: Yes (CABG triple bypass 2017) Orthopedic Surgery: Yes (OR debridement left foot wound) - Immunization History Immunization Up to Date: No - Suicide/Smoking/Psychosocial Hx Smoking Status: No Smoking History: Never smoked Have you smoked in the past 12 months: No Number of Cigarettes Smoked Daily: 0 Information on smoking cessation initiated: No Hx Alcohol Use: No Drug/Substance Use Hx: No Substance Use Type: None Hx Substance Use Treatment: No *Physical Exam - Vital Signs Last Vital Signs Temp Pulse Resp BP Pulse Ox 98.2 F 86 17 201/84 H 99 02/25/19 13:17 02/25/19 13:17 02/25/19 13:17 02/25/19 13:17 02/25/19 13:17 ED Treatment Course - LABORATORY CBC & Chemistry Diagram: 02/25/19 14:50 02/25/19 14:26 Medical Decision Making - Medical Decision Making 58yo M with PMH of ESRD on dialysis TuThSat, poorly controlled DM, wet gangrene , RUE digit amputation, bleeding gastric ulcers, CAD s/p CABG (09/14), mesenteric ischemia in November 2018 who presents with diffuse abdominal pain rated 10/10. Patient with recent outpatient surgical procedure yesterday for right 5th digit amputation revision. He was discharged home without any complaints. Last night he started experiencing severe abdominal pain that started with an intermittent pattern, but now the pain is constant. His pain was so bad that he missed his morning dialysis session today. Patient had a full session of dialysis on Friday. He reports nausea and vomiting. Has not taken anything for pain. Last bowel movement was a normal formed brown stool yesterday. No history of abdominal surgeries. His pain feels similar to when he had mesenteric ischemia about two months ago. No fevers, chills, chest pain, or shortness of breath. PCP: Dr. Sandra ROS: Constitutional: no fever, +chills HEENT: no throat pain, no dysphagia Cardiovascular: no chest pain, no palpitations Respiratory: no cough, no shortness of breath Gastrointestinal: +abdominal pain, +nausea, +vomiting Genitourinary: no dysuria, no hematuria Musculoskeletal: no myalgia, no arthralgia Skin: no rash, no itching Neurologic: no headache, no weakness PE: General: Awake, alert, and fully oriented, writhing in pain in the stretcher Head: No signs of trauma Eyes: EOMI, sclera anicteric ENT: Moist mucus membranes Neck: Normal ROM, supple Lungs: Lungs clear, Normal breath sounds Cardio: Regular rhythm, S1 and S2 present Abdomen: Soft. Diffusely tender most focal to epigastrium. No guarding, no rebound, no masses Extremities: Normal range of motion, Distal pulses present SKIN: Warm, Dry, normal turgor Neurologic: Cranial nerves II through XII grossly intact. Normal speech ED Courses/MDM: DDX including but not limited to mesenteric ischemia, pancreatitis, gastritis, gastroparesis, hyperkalemia Labs, EKG, CXR CT abd/pelvis with contrast Morphine, zofran, pepcid EKG, rate 86, QTc 464, normal sinus, peaked T waves in V2-V4 Patient with peaked T waves on today's EKG in comparison with previous EKG Potassium lowering medications Calcium, Kayexalate, Albuterol, Insulin, Dextrose ordered 02/25/19 14:47 CBC WBC 6.4 K/mm3 (4.0-10.0) 02/25/19 14:50 RBC 4.18 M/mm3 (4.00-5.60) 02/25/19 14:50 Hgb 12.6 GM/dL (11.7-16.9) 02/25/19 14:50 Hct 38.0 % (35.4-49) 02/25/19 14:50 MCV 90.8 fl (80-96) 02/25/19 14:50 MCH 30.1 pg (25.7-33.7) 02/25/19 14:50 MCHC 33.1 g/dl (32.0-35.9) 02/25/19 14:50 RDW 18.1 % (11.9-15.9) H 02/25/19 14:50 Plt Count 163 K/MM3 (134-434) D 02/25/19 14:50 MPV 9.2 fl (7.5-11.1) 02/25/19 14:50 Absolute Neuts (auto) 5.5 K/mm3 (1.5-8.0) 02/25/19 14:50 Neutrophils % 86.2 % (42.8-82.8) H D 02/25/19 14:50 Lymphocytes % 8.3 % (8-40) D 02/25/19 14:50 Monocytes % 5.0 % (3.8-10.2) 02/25/19 14:50 Eosinophils % 0.2 % (0-4.5) D 02/25/19 14:50 Basophils % 0.3 % (0-2.0) 02/25/19 14:50 Nucleated RBC % 0 % (0-0) 02/25/19 14:50 No leukocytosis CMP Sodium 132 mmol/L (136-145) L 02/25/19 14:26 Potassium 6.2 mmol/L (3.5-5.1) H* 02/25/19 14:26 Chloride 96 mmol/L (98-107) L 02/25/19 14:26 Carbon Dioxide 20 mmol/L (21-32) L 02/25/19 14:26 Anion Gap 16 MMOL/L (8-16) 02/25/19 14:26 BUN 96.0 mg/dL (7-18) H 02/25/19 14:26 Creatinine 10.8 mg/dL (0.55-1.3) H* 02/25/19 14:26 Est GFR (CKD-EPI)AfAm 5.35 02/25/19 14:26 Est GFR (CKD-EPI)NonAf 4.62 02/25/19 14:26 Random Glucose 383 mg/dL (74-106) H* 02/25/19 14:26 Lactic Acid 1.2 mmol/L (0.4-2.0) 02/25/19 15:40 Calcium 9.2 mg/dL (8.5-10.1) 02/25/19 14:26 Total Bilirubin 0.4 mg/dL (0.2-1) 02/25/19 14:26 AST 24 U/L (15-37) 02/25/19 14:26 ALT 22 U/L (13-61) 02/25/19 14:26 Alkaline Phosphatase 139 U/L (45-117) H 02/25/19 14:26 Creatine Kinase 89 U/L (26-308) 02/25/19 15:40 Troponin I 0.03 ng/ml (0.00-0.05) 02/25/19 15:40 Total Protein 8.4 g/dl (6.4-8.2) H 02/25/19 14:26 Albumin 4.1 g/dl (3.4-5.0) 02/25/19 14:26 Lipase 181 U/L (73-393) 02/25/19 14:26 Elevated potassium, 6.2; will require emergent dialysis Corrected Na is 137 which is normal Hyperglycemic BUN and Cr elevated as expected in this dialysis patient Normal lactate Normal lipase Tpn is 0.03 POCUS of abdomen without gallstones or signs of acute cholecystitis Patient still in significant discomfort. Morphine ordered Plan for admission for hyperkalemia and emergent dialysis Discussed case with Dr. Lowe who accepted patient for admission Patient will be dialyzed [facility] 02/25/19 16:40 *DC/Admit/Observation/Transfer Diagnosis at time of Disposition: Hyperkalemia, Missed dialysis Abdominal pain Qualifiers: Abdominal location: generalized Qualified Code(s): R10.84 - Generalized abdominal pain - Discharge Dispostion Condition at time of disposition: Guarded Decision to Admit order: Yes - Referrals - Patient Instructions - Post Discharge Activity
[2019-02-25] MEDS ORDERED: morphine SULFATE 4 MG/ML VIAL ONE ×2 (14:37→16:11)
[2019-02-25] MEDS ORDERED: ONDANSETRON 4 MG/2 ML VIAL ONE (14:39)
[2019-02-25] MEDS ORDERED: ONDANSETRON 4 MG/2 ML VIAL IVPUSH ONE (14:39)
[2019-02-25] MEDS ORDERED: CALCIUM GLUCONATE 10% - 1,000 MG/10 ML VIAL IVPB ONE (14:40)
[2019-02-25] MEDS ORDERED: DEXTROSE 50%-WATER - 25 GM/50 ML VIAL IVPUSH ONE (14:41)
[2019-02-25] MEDS ORDERED: INSULIN REGULAR HUMAN 100 UNITS/ML *VIAL IVPUSH ONE (14:41)
[2019-02-25] MEDS ORDERED: ALBUTEROL SO4 0.083% IH SOL 2.5 MG/3 ML VIAL.NEB. NEB ONE ×2 (14:42→15:38)
[2019-02-25] MEDS ORDERED: SODIUM POLYSTYRENE SULFONATE 15 GM/60 ML BOTTLE PO ONE (14:43)
[2019-02-25 15:14] LABS: BASO % 0.3 % (0-2.0); EOS % 0.2 % (0-4.5); HEMOGLOBIN 12.6 GM/dL (11.7-16.9); LYMPH % 8.3 % (8-40); MCH 30.1 pg (25.7-33.7); MCHC 33.1 g/dl (32.0-35.9); MEAN CELL VOLUME 90.8 fl (80-96); MEAN PLT VOLUME 9.2 fl (7.5-11.1); NEUT % 86.2 % (42.8-82.8); RBC 4.18 M/mm3 (4.00-5.60); RDW 18.1 % (11.9-15.9); WHITE BLOOD COUNT 6.4 K/mm3 (4.0-10.0)
[2019-02-25] MEDS ORDERED: FAMOTIDINE 20 MG/50 ML IVPB 20 MG/50 ML MG IVPB ONE ×2 (15:17→15:39)
[2019-02-25 15:21] LABS: PLATELET COUNT 163 K/MM3 (134-434)
--- NOTE | 2019-02-25 15:28 | EKG ---
Test Reason : Blood Pressure : / mmHG Vent. Rate : 086 BPM Atrial Rate : 086 BPM P-R Int : 186 ms QRS Dur : 110 ms QT Int : 388 ms P-R-T Axes : -02 093 109 degrees QTc Int : 464 ms NORMAL SINUS RHYTHM RIGHTWARD AXIS PULMONARY DISEASE PATTERN INCOMPLETE RIGHT BUNDLE BRANCH BLOCK NONSPECIFIC ST AND T WAVE ABNORMALITY ABNORMAL ECG WHEN COMPARED WITH ECG OF 20-JAN-2019 02:20, FUSION COMPLEXES ARE NO LONGER PRESENT Confirmed by ANA LUISA FIGUEROA MD ([id number]) on 02/25/2019 3:27:59 PM Referred By: Confirmed By:ANA LUISA FIGUEROA MD
--- NOTE | 2019-02-25 15:37 | PDOC ---
Documentation entered by Dayanara Walden SCRIBE, acting as scribe for Adolfo Esquivel MD. Adolfo Esquivel MD: This documentation has been prepared by the Win guardado Adrianna, SCRIBE, under my direction and personally reviewed by me in its entirety. I confirm that the documentation accurately reflects all work, treatment, procedures, and medical decision making performed by me. 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 taking percocet for pain, had regional nerve block and no systemic anesthesia. + flatus and nonbloody BM, no appetite and limited PO intake today. no f/c. has h/o PUD on EGD performed in the past. recently admitted about 1 month ago with pancreatitis, seen by Dr. Dubon. - Physicial Exam PE: 02/25/19 15:31 hypertensive, notably in pain no jaundice/pallor s1s2 rrr, ctab abd soft but distended. diffuse ttp mostly in the epigastric region, where there is + guarding. no rebound. bs nl no cvat R hand bandage in place RUE graft with palpable flow - Medical Decision Making 02/25/19 15:32 58-year-old male with history of end-stage renal disease on dialysis, missed session today, h/o gastritis and pancreatitis p/w epigastric pain/n/v pod#1 R digit ampution. HD stable, exam localizes to epigastric region, had normal gallbladder one month ago. presentation could be consistent with recurrence of pancreatitis, gastritis. r/o cardiac. stat ekg showed peaked T waves V2-4. In setting of missed HD, will treat empirically for hyperK ivf, pain control, nausea control bedside GB imaging reassess 02/25/19 16:32 no leukocytosis, hyper-K confirmed and already being treated. will need HD. lipase normal, alk phos slightly elevated. POCUS abd u/s without gallstones. will check CTAP, continues to need pain meds. Renal consult for HD following CT likely admission Heart Score/ECG Review #1 ECG reviewed & interpreted by me at: 13:25 General ECG Interpretation: Sinus Rhythm, Normal Rate (86), Normal Intervals ( qtc 464, peaked T waves V2-V4), No acute ischemic changes (TWI I/AVL/V6)
[2019-02-25] MEDS ORDERED: INSULIN REGULAR HUMAN 100 UNITS/ML *VIAL ONE (15:39)
[2019-02-25] MEDS ORDERED: DEXTROSE 50%-WATER 25 GM/50 ML DISP.SYRIN ONE (15:39)
[2019-02-25] MEDS ORDERED: SODIUM POLYSTYRENE SULFONATE 15 GM/60 ML BOTTLE ONE (15:39)
[2019-02-25] MEDS ORDERED: CALCIUM GLUCONATE 10% - 1,000 MG/10 ML VIAL ONE (15:39)
[2019-02-25 15:46] LABS: ALBUMIN 4.1 g/dl (3.4-5.0); BILIRUBIN,TOTAL 0.4 mg/dL (0.2-1); CALCIUM 9.2 mg/dL (8.5-10.1); TOT PROT 8.4 g/dl (6.4-8.2)
[2019-02-25 15:49] LABS: CREATININE 10.8 mg/dL (0.55-1.3)
[2019-02-25 15:50] LABS: POTASSIUM 6.2 mmol/L (3.5-5.1)
[2019-02-25] MEDS ORDERED: morphine CARPU-JECT 4 MG/1 ML DISP.SYRIN IVPUSH ONE (16:01)
[2019-02-25] MEDS ORDERED: MORPHINE SULFATE 2 MG/ML VIAL IVPUSH PRN (16:45)
[2019-02-25] MEDS ORDERED: ONDANSETRON 4 MG/2 ML VIAL IVPUSH PRN (16:45)
[2019-02-25] MEDS ORDERED: MORPHINE SULFATE 2 MG/ML VIAL IVPUSH ONE (17:12)
--- NOTE | 2019-02-25 17:14 | HP ---
Admitting History and Physical - Past Medical History DIPPER AND DRIER: Yes: Peripheral Neuropathy Cardiovascular: Yes: CAD (CABG), HTN, Hyperlipdemia. No: Aortic Stenosis Gastrointestinal: Yes: GERD Renal/: Yes: Renal Failure, Hemodialysis Heme/Onc: Yes: Anemia Musculoskeletal: Yes: Other (peripheral vascular disease) Endocrine: Yes: Diabetes Mellitus - Past Surgical History Past Surgical History: Yes: Amputation, AV Fistula/Graft, CABG - Smoking History Smoking history: Never smoked Have you smoked in the past 12 months: No Aproximately how many cigarettes per day: 0 - Alcohol/Substance Use Hx Alcohol Use: No History of Substance Use: reports: None - Social History ADL: Independent History of Recent Travel: No Home Medications - Allergies Allergies/Adverse Reactions: Allergies Allergy/AdvReac Type Severity Reaction Status Date / Time No Known Drug Allergies Allergy Verified 02/25/19 13:17 - Home Medications Home Medications: Ambulatory Orders Albuterol 2.5/Ipratropium 0.5 [Duoneb -] 1 amp NEB TID 04/27/18 Aspirin [Ecotrin] 81 mg PO DAILY 04/27/18 Loratadine [Claritin] 10 mg PO DAILY 04/27/18 Sevelamer Carbonate [Renvela -] 1,600 mg PO TID 04/27/18 Atorvastatin Ca [Lipitor] 40 mg PO HS tablet 05/04/18 Diclofenac Sodium [Voltaren] 100 gm TP PRN 02/23/19 Esomeprazole Magnesium [Nexium 24Hr] 40 mg PO DAILY 02/23/19 Furosemide [Lasix -] 80 mg PO DAILY 02/23/19 Insulin (Novolog 70/30) [Novolog Mix 70/30 Vial -] 30 units SQ BIDAC 02/23/19 Insulin Glargine,Hum.rec.anlog [Lantus] 30 unit SQ BID 02/23/19 Midodrine HCl [Proamatine -] 5 mg PO TID 02/23/19 Oxycodone HCl/Acetaminophen [Percocet 5/325 -] 1 tab PO Q6H #40 tab MDD 4 Sulfamethoxazole/Trimethoprim [Bactrim Ds -] 1 tab PO BID #14 tablet 02/24/19 Family Disease History - Family Disease History Family Disease History: Diabetes: Father, Mother Physical Examination Vital Signs: Vital Signs Temperature 97.4 F L 02/25/19 15:45 Pulse Rate 73 02/25/19 15:45 Respiratory Rate 17 02/25/19 13:17 Blood Pressure 182/83 H 02/25/19 15:45 O2 Sat by Pulse Oximetry (%) 96 02/25/19 15:45 Labs: CBC, BMP 02/25/19 14:50 02/25/19 14:26
[2019-02-25] MEDS ORDERED: MORPHINE SULFATE 2 MG/ML VIAL ONE (17:30)
[2019-02-25] MEDS: MORPHINE SULFATE 2 MG/ML VIAL IVPUSH PRN ×2 (20:05→22:58)
[2019-02-25] MEDS: ALBUTEROL SO4 2.5/IPRATROPIUM 0.5 INH SOL 3 ML VIAL.NEB. NEB SCH (22:10)
[2019-02-25] MEDS: MIDODRINE HCL 5 MG TABLET PO SCH (22:58)
[2019-02-26 00:09] VITALS: BMI 31.6
[2019-02-26] MEDS: MORPHINE SULFATE 2 MG/ML VIAL IVPUSH PRN ×5 (02:57→22:53)
[2019-02-26] MEDS ORDERED: SEVELAMER CARBONATE 800 MG TAB (FP) PO SCH (06:00)
[2019-02-26] MEDS: ALBUTEROL SO4 2.5/IPRATROPIUM 0.5 INH SOL 3 ML VIAL.NEB. NEB SCH ×3 (07:45→20:10)
--- NOTE | 2019-02-26 08:03 | CON.GI ---
Consult Consult Specialty:: GI Referred by:: Dr Val Teran Reason for Consultation:: Abdominal Pain - History of Present Illness Chief Complaint: Epigastric pain History of Present Illness: Patient is a 58 y/o male with past medical history of ESRD on HD, DM, s/p R hand 5th digit amoutation, PUD, bleeding gastric ulcers, CAD s/p CABG (09/14), mesenteric ischemia. Consult was placed for complaints of abdominal pain. Patient states experiencing sharp, continuous epigastric pain radiating down to lower abdomen. Epigastric pain accompanied with nausea and vomiting yellow contents, poor appetite with only able to tolerate liquids. Patient is on chronic aspirin use due to cardiac history. On admission labs show normal lipase 181 and no leukocytosis with WBC 6.4. CT scan shows development of minimal to mild left hydroureteronephrosis noted as well as development of mild left periureteral soft tissue edema level of lower pelvis. 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 No: Aortic Stenosis Gastrointestinal: Yes: GERD Renal/: Yes: Renal Failure, Hemodialysis Musculoskeletal: Yes: Other (peripheral vascular disease) Endocrine: Yes: Diabetes Mellitus - Past Surgical History Past Surgical History: Yes: Amputation, AV Fistula/Graft, CABG - Alcohol/Substance Use Hx Alcohol Use: No History of Substance Use: reports: None - Smoking History Smoking history: Never smoked Have you smoked in the past 12 months: No Aproximately how many cigarettes per day: 0 - Social History Usual Living Arrangement: With Spouse ADL: Independent History of Recent Travel: No Home Medications - Allergies Allergies/Adverse Reactions: Allergies Allergy/AdvReac Type Severity Reaction Status Date / Time No Known Drug Allergies Allergy Verified 02/25/19 13:17 - Home Medications Home Medications: Ambulatory Orders Albuterol 2.5/Ipratropium 0.5 [Duoneb -] 1 amp NEB TID 04/27/18 Aspirin [Ecotrin] 81 mg PO DAILY 04/27/18 Loratadine [Claritin] 10 mg PO DAILY 04/27/18 Sevelamer Carbonate [Renvela -] 1,600 mg PO TID 04/27/18 Furosemide [Lasix -] 80 mg PO DAILY 02/23/19 Insulin Glargine,Hum.rec.anlog [Lantus] 30 unit SQ BID 02/23/19 Midodrine HCl [Proamatine -] 10 mg PO TID 02/23/19 Sulfamethoxazole/Trimethoprim [Bactrim Ds -] 1 tab PO BID #14 tablet 02/24/19 Albuterol Sulfate Inhaler - [Ventolin HFA Inhaler -] 1 puff IH Q6H PRN 02/25/19 Calcium Acetate [Phoslo -] 667 mg PO TIDCM 02/25/19 Diclofenac Sodium [Voltaren] 100 gm TP Q6H PRN 02/25/19 Insulin NPH Hum/Reg Insulin Hm [Novolin 70-30 100 Unit/ml Vial] 30 unit SQ BID 02/25/19 Lipase/Protease/Amylase [Zenpep Dr 25,000 Unit Capsule] 1 each PO DAILY Metolazone 5 mg PO DAILY 02/25/19 Metoprolol Succinate [Toprol Xl] 50 mg PO DAILY 02/25/19 Omeprazole 40 mg PO DAILY 02/25/19 Oxycodone HCl/Acetaminophen [Percocet 10-325 mg Tablet] 1 each PO BID 02/25/19 Vit B Comp No.3/Folic/C/Biotin [Piedad-Kelly Rx Tablet] 1 each PO DAILY 02/25/19 Family Disease History - Family Disease History Family Disease History: Diabetes: Father, Mother Review of Systems - Review of Systems Constitutional: reports: Loss of Appetite Eyes: reports: No Symptoms HENT: reports: No Symptoms Neck: reports: No Symptoms Cardiovascular: reports: No Symptoms Respiratory: reports: No Symptoms Gastrointestinal: reports: Abdominal Pain, Nausea, Vomiting Genitourinary: reports: No Symptoms Breasts: reports: No Symptoms Reported Musculoskeletal: reports: No Symptoms Integumentary: reports: No Symptoms Neurological: reports: No Symptoms Endocrine: reports: No Symptoms Hematology/Lymphatic: reports: No Symptoms Psychiatric: reports: No Symptoms Physical Exam-GI Vital Signs: Vital Signs Temperature 97.7 F 02/26/19 05:48 Pulse Rate 87 02/26/19 05:48 Respiratory Rate 20 02/26/19 05:48 Blood Pressure 137/71 02/26/19 05:48 O2 Sat by Pulse Oximetry (%) 97 02/25/19 22:00 Constitutional: Yes: Well Nourished, Mild Distress Eyes: Yes: Conjunctiva Clear HENT: Yes: Atraumatic Cardiovascular: Yes: Regular Rate and Rhythm Respiratory: Yes: Regular, CTA Bilaterally Gastrointestinal Inspection: Yes: WNL. No: Ascites, Distention, Hernia, Scars, Other ...Auscultate: Yes: Normoactive Bowel Sounds. No: Hyperactive Bowel Sounds, Hypoactive Bowel Sounds, No Bowel Sounds, Other ...Palpate: Yes: Tenderness (diffuse), Other ...Percussion: Yes: Tympanitic. No: Dullness, Fluid Wave, Other Neurological: Yes: Alert, Oriented Psychiatric: Yes: Alert, Oriented Imaging - Results Cat Scan: Report Reviewed Problem List - Problems (1) Epigastric pain Assessment/Plan: R>secondary to chronic aspirin use vs possible gastroparesis secondary to poorly controlled DM vs percocet use >Pantoprazole >simethicone 80mg TID >reglan TID AC >advance to clear liquid diet >consider stopping aspirin for few days if cleared with cardiology Code(s): R10.13 - EPIGASTRIC PAIN
[2019-02-26 08:07] LABS: BASO % 0.4 % (0-2.0); EOS % 0.6 % (0-4.5); HEMATOCRIT 36.7 % (35.4-49); LYMPH % 16.7 % (8-40); MCH 29.4 pg (25.7-33.7); MCHC 32.6 g/dl (32.0-35.9); MEAN CELL VOLUME 90.2 fl (80-96); MEAN PLT VOLUME 9.1 fl (7.5-11.1); MONO % 9.1 % (3.8-10.2); NEUT % 73.2 % (42.8-82.8); PLATELET COUNT 182 K/MM3 (134-434); RBC 4.07 M/mm3 (4.00-5.60); RDW 17.7 % (11.9-15.9); WHITE BLOOD COUNT 5.5 K/mm3 (4.0-10.0)
[2019-02-26] MEDS ORDERED: SIMETHICONE 80 MG TAB.CHEW (FP) PO PRN (08:07)
[2019-02-26 08:37] LABS: ALBUMIN 3.8 g/dl (3.4-5.0); BILIRUBIN,TOTAL 0.4 mg/dL (0.2-1); BLOOD UREA NITROGEN 50.9 mg/dL (7-18); CALCIUM 8.7 mg/dL (8.5-10.1); POTASSIUM 4.6 mmol/L (3.5-5.1)
[2019-02-26] MEDS: SEVELAMER CARBONATE 800 MG TAB (FP) PO SCH ×3 (08:52→17:02)
[2019-02-26] MEDS: CALCIUM ACETATE 667 MG CAPSULE (FP) PO SCH ×3 (08:52→17:01)
[2019-02-26] MEDS ORDERED: METOLAZONE 5 MG TABLET PO SCH (10:00)
[2019-02-26] MEDS ORDERED: FUROSEMIDE 40 MG TABLET (FP) PO SCH (10:00)
--- NOTE | 2019-02-26 10:23 | PN ---
Progress Note (short form) - Note Progress Note: RENAL 58 ESRD CAD POST CABG PVD RECENT ADMISSION FOR ABD PAIN READMITTED NOW GI NOTE REVIEWED DIALYZED YESTERDAY 2 KG REMOVED K 4.5 TODAY HB 12 WILL DIALYZE SAT IN HOSPITAL ON CLEAR LIQUIDS RIGHT NOW MEDS REVIEWED CT NOTED
[2019-02-26] MEDS: MIDODRINE HCL 5 MG TABLET PO SCH ×3 (10:31→20:28)
[2019-02-26] MEDS: PANTOPRAZOLE SODIUM 40 MG VIAL IVPUSH SCH (10:31)
[2019-02-26] MEDS: METOCLOPRAMIDE HCL 10 MG TABLET (FP) PO SCH ×2 (10:45→17:02)
[2019-02-26] MEDS: ASPIRIN COATED 81 MG TABLET.EC PO SCH (10:45)
--- NOTE | 2019-02-26 11:22 | PN ---
Progress Note (short form) - Note Progress Note: pt seen/ examined chart reviewed complains of abdominal discomfort Vital Signs Temp 97.7 F 02/26/19 05:48 Pulse 87 02/26/19 05:48 Resp 20 02/26/19 05:48 BP 137/71 02/26/19 05:48 Pulse Ox 97 02/25/19 22:00 Intake & Output 02/25/19 02/25/19 02/26/19 11:59 23:59 11:59 Intake Total 500 400 Output Total 3500 Balance -3000 400 Weight 202 lb 3.2 oz Intake: IV 500 Normal Saline - 1,000 ml 500 @ 1000 mls/hr IV ASDIR STA Rx#:[id number] Tube Feeding 400 Output: Fluid Removed, 3500 Hemodialysis Other: Voiding Method Toilet Toilet # Unmeasured Voids Void 1 Height 5 ft 7 in Body Mass Index (BMI) 31.6 Weight Measurement Method Standing Scale Weight Measurement Method Est/Stated by Patient Active Medications Albuterol/Ipratropium (Duoneb -) 1 amp NEB RTID [facility] Last Admin: 02/26/19 07:45 Dose: 1 amp Aspirin (Ecotrin -) 81 mg PO DAILY [facility] Last Admin: 02/26/19 10:45 Dose: 81 mg Calcium Acetate (Phoslo -) 667 mg PO TIDCM [facility] Last Admin: 02/26/19 08:52 Dose: 667 mg Metoclopramide HCl (Reglan -) 5 mg PO TIDAC [facility] Last Admin: 02/26/19 10:45 Dose: 5 mg Metoprolol Succinate (Toprol Xl -) 50 mg PO DAILY [facility] Last Admin: 02/26/19 10:45 Dose: 50 mg Midodrine (Proamatine -) 5 mg PO TID-MID [facility] Last Admin: 02/26/19 10:31 Dose: 5 mg Morphine Sulfate (Morphine Sulfate) 2 mg IVPUSH Q3H PRN PRN Reason: PAIN LEVEL 6-10 Last Admin: 02/26/19 09:05 Dose: 2 mg Ondansetron HCl (Zofran Injection) 4 mg IVPUSH Q4H PRN PRN Reason: NAUSEA AND/OR VOMITING Pantoprazole Sodium (Protonix Iv) 40 mg IVPUSH DAILY [facility] Last Admin: 02/26/19 10:31 Dose: 40 mg Sevelamer Carbonate (Renvela -) 1,600 mg PO TIDCM [facility] Last Admin: 02/26/19 08:52 Dose: 1,600 mg Simethicone (Mylicon -) 80 mg PO TID PRN PRN Reason: GAS Last Admin: 02/26/19 08:46 Dose: 80 mg CBC, BMP 02/26/19 05:53 02/26/19 05:53 Physical Exam Constitutional: Yes:awake/ mild discomfort due to pain Eyes: Yes: Conjunctiva Clear HENT: Yes: Wnl Cardiovascular: Yes: Regular Rate and Rhythm Respiratory: Yes: Regular, Diminished at bases GI-- Mild epigastric tenderness. NO R/R. 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
[2019-02-26] MEDS ORDERED: INSULIN (NOVOLOG) ASPART 100 UNITS/ML 10ML VIAL SQ ONE (15:30)
[2019-02-26] MEDS ORDERED: ALBUTEROL SO4 8 GM HFA INHALER IH PRN (17:04)
[2019-02-26] MEDS ORDERED: PATIENT'S OWN MEDICATION (NON-FORMULARY) (Diclofenac Sodium [Voltaren] 100 GM) TP PRN (17:04)
--- NOTE | 2019-02-26 20:00 | HOSP ---
Subjective - Review of Symptoms Events since last encounter: Hospitalist Encounter Notified by the Pharmacist that the Bactrim DS order needs to be adjusted to the patient's eGFR and HD status Plan Bactrim SS po Q24h post HD Nephrology consult for HD management Physical Examination Vital Signs: Vital Signs Temperature 98.1 F 02/26/19 14:00 Pulse Rate 78 02/26/19 14:00 Respiratory Rate 16 02/26/19 14:00 Blood Pressure 129/66 02/26/19 14:00 O2 Sat by Pulse Oximetry (%) 97 02/26/19 09:00 Labs: CBC, BMP 02/26/19 05:53 02/26/19 05:53
[2019-02-26] MEDS: oxyCODONE HCL 5 MG TABLET PO SCH (21:37)
[2019-02-26] MEDS: INSULIN (LEVEMIR) 100 UNITS/ML UNITS SQ SCH (21:38)
[2019-02-26] MEDS: ACETAMINOPHEN 325 MG TABLET (FP) PO SCH (21:38)
[2019-02-27] MEDS: METOCLOPRAMIDE HCL 10 MG TABLET (FP) PO SCH ×3 (06:07→17:26)
[2019-02-27] MEDS: INSULIN (LEVEMIR) 100 UNITS/ML UNITS SQ SCH ×2 (06:28→23:16)
[2019-02-27] MEDS: ALBUTEROL SO4 2.5/IPRATROPIUM 0.5 INH SOL 3 ML VIAL.NEB. NEB SCH ×3 (07:45→20:40)
[2019-02-27] MEDS: CALCIUM ACETATE 667 MG CAPSULE (FP) PO SCH ×3 (08:04→17:27)
[2019-02-27] MEDS: SEVELAMER CARBONATE 800 MG TAB (FP) PO SCH ×3 (08:04→17:27)
[2019-02-27] MEDS ORDERED: PATIENT'S OWN MEDICATION (NON-FORMULARY) (Omeprazole [Omeprazole] 40 MG) PO SCH (10:00)
[2019-02-27] MEDS ORDERED: SULFAMETHOXAZOLE/TRIMETHOPRIM 800MG/160MG D.S. TABLET PO SCH (10:00)
[2019-02-27] MEDS ORDERED: SULFAMETHOXAZOLE/TRIMETHOPRIM 400MG/80MG S.S. TABLET PO SCH (10:00)
[2019-02-27] MEDS: PANTOPRAZOLE SODIUM 40 MG VIAL IVPUSH SCH (10:38)
[2019-02-27] MEDS: LORATADINE 10 MG TABLET PO SCH (10:38)
[2019-02-27] MEDS: ASPIRIN COATED 81 MG TABLET.EC PO SCH (10:39)
[2019-02-27] MEDS: MIDODRINE HCL 5 MG TABLET PO SCH ×3 (10:39→17:27)
[2019-02-27] MEDS: oxyCODONE HCL 5 MG TABLET PO SCH ×2 (10:51→23:16)
[2019-02-27] MEDS: ACETAMINOPHEN 325 MG TABLET (FP) PO SCH ×2 (10:51→23:16)
--- NOTE | 2019-02-27 11:21 | PN ---
Progress Note (short form) - Note Progress Note: pt seen/examined Being dialized chart reviewed awake/ comfortable Vital Signs Temp 97.9 F 02/27/19 09:00 Pulse 81 02/27/19 09:00 Resp 18 02/27/19 09:00 BP 117/66 02/27/19 09:00 Pulse Ox 99 02/27/19 09:00 Intake & Output 02/26/19 02/26/19 02/27/19 11:59 23:59 11:59 Intake Total 400 700 120 Balance 400 700 120 Intake: IV 10 saline Lock 10 IVPB 0 Oral 690 120 Tube Feeding 400 Other: Voiding Method Toilet Toilet Toilet # Unmeasured Voids Void 1 1 Bowel Movement No No Active Medications Acetaminophen (Tylenol -) 325 mg PO BID [facility] Last Admin: 02/26/19 21:38 Dose: 325 mg Albuterol Sulfate (Ventolin Hfa Inhaler -) 1 puff IH Q6H PRN PRN Reason: SHORT OF BREATH/WHEEZING Albuterol/Ipratropium (Duoneb -) 1 amp NEB RTID [facility] Last Admin: 02/27/19 07:45 Dose: 1 amp Aspirin (Ecotrin -) 81 mg PO DAILY [facility] Last Admin: 02/27/19 10:39 Dose: 81 mg Calcium Acetate (Phoslo -) 667 mg PO TIDCM [facility] Last Admin: 02/27/19 08:04 Dose: 667 mg Insulin Aspart (Novolog Vial Sliding Scale -) 1 vial SQ TIDAC [facility]; Protocol Insulin Detemir (Levemir Vial) 30 units SQ BID@0700,2200 [facility] Last Admin: 02/27/19 06:28 Dose: 30 units Loratadine (Claritin -) 10 mg PO DAILY [facility] Last Admin: 02/27/19 10:38 Dose: 10 mg Metoclopramide HCl (Reglan -) 5 mg PO TIDAC [facility] Last Admin: 02/27/19 10:38 Dose: 5 mg Metoprolol Succinate (Toprol Xl -) 50 mg PO DAILY [facility] Last Admin: 02/26/19 10:45 Dose: 50 mg Midodrine (Proamatine -) 5 mg PO TID-MID [facility] Last Admin: 02/27/19 10:39 Dose: 5 mg Morphine Sulfate (Morphine Sulfate) 2 mg IVPUSH Q3H PRN PRN Reason: PAIN LEVEL 6-10 Last Admin: 02/26/19 22:53 Dose: 2 mg Non-Formulary Medication (Diclofenac Sodium [Voltaren]) 100 gm TP Q6H PRN PRN Reason: MILD PAIN Non-Formulary Medication (Lipase/Protease/Amylase [Zenpep Dr 25,000 Unit Capsule ]) 1 each PO DAILY [facility] Non-Formulary Medication (Vit B Comp No.3/Folic/C/Biotin [Piedad-Kelly Rx Tablet]) 1 each PO DAILY [facility] Ondansetron HCl (Zofran Injection) 4 mg IVPUSH Q4H PRN PRN Reason: NAUSEA AND/OR VOMITING Oxycodone HCl (Roxicodone -) 10 mg PO BID [facility] Last Admin: 02/26/19 21:37 Dose: 10 mg Pantoprazole Sodium (Protonix Iv) 40 mg IVPUSH DAILY [facility] Last Admin: 02/27/19 10:38 Dose: 40 mg Sevelamer Carbonate (Renvela -) 1,600 mg PO TIDCM [facility] Last Admin: 02/27/19 08:04 Dose: 1,600 mg Simethicone (Mylicon -) 80 mg PO TID PRN PRN Reason: GAS Last Admin: 02/26/19 08:46 Dose: 80 mg Trimethoprim/Sulfamethoxazole (Bactrim Single Strength -) 1 each PO TuThSa@ 1000 [facility] Last Admin: 02/27/19 10:39 Dose: 1 each CBC, BMP 02/26/19 05:53 02/26/19 05:53 Physical Exam Constitutional: Yes:awake/ mild discomfort due to pain Eyes: Yes: Conjunctiva Clear HENT: Yes: Wnl Cardiovascular: Yes: Regular Rate and Rhythm Respiratory: Yes: Regular, Diminished at bases GI-- soft Neurological: Yes: Alert, Oriented Psychiatric: Yes: Alert, Oriented Right hand-- Dressing + A/p Better discussed Pain control - better Monitor BP/ Diabetes Dialysis per renal-- today will follow If stable -- d/c in am d/c tele Problem List - Problems (1) Abdominal pain Code(s): R10.9 - UNSPECIFIED ABDOMINAL PAIN Qualifiers: Abdominal location: generalized Qualified Code(s): R10.84 - Generalized abdominal pain (2) Anemia associated with chronic renal failure Code(s): D63.1 - ANEMIA IN CHRONIC KIDNEY DISEASE (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
[2019-02-27] MEDS ORDERED: PT OWN MED DRAWER 7, Y5N ONE (16:58)
[2019-02-27] MEDS: PATIENT'S OWN MEDICATION (NON-FORMULARY) (Lipase/Protease/Amylase [Zenpep Dr 25,000 Unit C PO SCH (17:28)
[2019-02-27] MEDS: INSULIN SLIDING SCALE (NOVOLOG) 1 VIAL SQ SCH (17:28)
[2019-02-27] MEDS: MORPHINE SULFATE 2 MG/ML VIAL IVPUSH PRN (23:15)
[2019-02-28] MEDS: METOCLOPRAMIDE HCL 10 MG TABLET (FP) PO SCH ×2 (06:44→11:39)
[2019-02-28] MEDS: INSULIN SLIDING SCALE (NOVOLOG) 1 VIAL SQ SCH (06:44)
[2019-02-28] MEDS: INSULIN (LEVEMIR) 100 UNITS/ML UNITS SQ SCH (06:45)
[2019-02-28 06:59] VITALS: TEMP 97.5
[2019-02-28] MEDS: ALBUTEROL SO4 2.5/IPRATROPIUM 0.5 INH SOL 3 ML VIAL.NEB. NEB SCH ×2 (07:36→14:20)
[2019-02-28] MEDS: CALCIUM ACETATE 667 MG CAPSULE (FP) PO SCH ×2 (09:00→11:38)
[2019-02-28] MEDS: SEVELAMER CARBONATE 800 MG TAB (FP) PO SCH ×2 (09:00→11:38)
[2019-02-28] MEDS: PATIENT'S OWN MEDICATION (NON-FORMULARY) (Lipase/Protease/Amylase [Zenpep Dr 25,000 Unit C PO SCH ×2 (09:00→11:36)
[2019-02-28] MEDS ORDERED: [UNRECOGNIZED DRUG - REMARK] PO SCH (10:00)
[2019-02-28 10:09] VITALS: BP 108/62; PULSE 73
[2019-02-28] MEDS ORDERED: PT OWN MED DRAWER 7, Y5N ONE (11:17)
[2019-02-28] MEDS: PANTOPRAZOLE SODIUM 40 MG VIAL IVPUSH SCH (11:37)
[2019-02-28] MEDS: LORATADINE 10 MG TABLET PO SCH (11:38)
[2019-02-28] MEDS: ACETAMINOPHEN 325 MG TABLET (FP) PO SCH (11:38)
[2019-02-28] MEDS: ASPIRIN COATED 81 MG TABLET.EC PO SCH (11:40)
[2019-02-28] MEDS: MIDODRINE HCL 5 MG TABLET PO SCH (11:40)
[2019-02-28] MEDS: oxyCODONE HCL 5 MG TABLET PO SCH (11:40)
--- NOTE | 2019-02-28 12:49 | DS ---
Physical Examination Vital Signs: Vital Signs Temperature 97.5 F L 02/28/19 06:00 Pulse Rate 73 02/28/19 10:08 Respiratory Rate 18 02/28/19 10:08 Blood Pressure 108/62 02/28/19 10:08 O2 Sat by Pulse Oximetry (%) 98 02/27/19 21:00 Findings/Remarks: feels well no complains wants to go home abd pain resolved Constitutional: Yes: No Distress, Calm Eyes: Yes: Conjunctiva Clear Neck: Yes: Supple Cardiovascular: Yes: Regular Rate and Rhythm Respiratory: Yes: Diminished Gastrointestinal: Yes: Soft Extremities: Yes: Other (dressing +) Edema: No Neurological: Yes: Alert Labs: CBC, BMP 02/26/19 05:53 02/26/19 05:53 Discharge Summary Reason For Visit: MISSED DIALYSIS, ABD PAIN,HYPERKALMIA Current Active Problems Abdominal pain (Acute) Hyperkalemia (Acute) Missed dialysis (Acute) Hospital Course: Admitted for abd pain likely gastritis possibly Mesenteric ischemia also contributing much better gi followed stable for d/c pt to follow with his pmd/ surgeon and gI Pt in agreement meds reconcilled Discussed with RN also Condition: Improved - Instructions Disposition: HOME - Home Medications Comprehensive Discharge Medication List: Ambulatory Orders Albuterol 2.5/Ipratropium 0.5 [Duoneb -] 1 amp NEB TID 04/27/18 Aspirin [Ecotrin] 81 mg PO DAILY 04/27/18 Loratadine [Claritin] 10 mg PO DAILY 04/27/18 Sevelamer Carbonate [Renvela -] 1,600 mg PO TID 04/27/18 Furosemide [Lasix -] 80 mg PO DAILY 02/23/19 Insulin Glargine,Hum.rec.anlog [Lantus] 30 unit SQ BID 02/23/19 Midodrine HCl [Proamatine -] 10 mg PO TID 02/23/19 Albuterol Sulfate Inhaler - [Ventolin HFA Inhaler -] 1 puff IH Q6H PRN 02/25/19 Calcium Acetate [Phoslo -] 667 mg PO TIDCM 02/25/19 Diclofenac Sodium [Voltaren] 100 gm TP Q6H PRN 02/25/19 Insulin NPH Hum/Reg Insulin Hm [Novolin 70-30 100 Unit/ml Vial] 30 unit SQ BID 02/25/19 Lipase/Protease/Amylase [Zenpep Dr 25,000 Unit Capsule] 1 each PO DAILY Metolazone 5 mg PO DAILY 02/25/19 Metoprolol Succinate [Toprol Xl] 50 mg PO DAILY 02/25/19 Omeprazole 40 mg PO DAILY 02/25/19 Oxycodone HCl/Acetaminophen [Percocet 10-325 mg Tablet] 1 each PO BID 02/25/19 Vit B Comp No.3/Folic/C/Biotin [Piedad-Kelly Rx Tablet] 1 each PO DAILY 02/25/19 Acetaminophen [Tylenol .Regular Strength -] 325 mg PO BID tablet 02/28/19 Metoclopramide HCl [Reglan -] 5 mg PO TIDAC tablet 02/28/19 Simethicone [Mylicon -] 80 mg PO TID PRN #90 tab.chew 02/28/19 Sulfamethoxazole/Trimethoprim [Bactrim SS -] 1 each PO TuThSa@1000 tablet 02/28
== END 2019-02-28 14:35 | disposition home or self-care (01) | DRG 640 ==
LOC: JER 13:00 → JERBED 16:42 → J4W 19:55
PROVIDERS: ADMIT Internal Medicine; ATTEND Internal Medicine
PROC: 5A1D70Z Performance of Urinary Filtration, Intermittent, Less than 6 Hours Per Day (ICD-10-PCS; principal; 2019-02-25)
PROC: 5A1D70Z Performance of Urinary Filtration, Intermittent, Less than 6 Hours Per Day (ICD-10-PCS; 2019-02-27)
DX: E87.5 Hyperkalemia (principal); N18.6 End stage renal disease; K55.059 Acute (reversible) ischemia of intestine, part and extent unspecified; I12.0 Hypertensive chronic kidney disease with stage 5 chronic kidney disease or end stage renal disease; E11.22 Type 2 diabetes mellitus with diabetic chronic kidney disease; I25.10 Atherosclerotic heart disease of native coronary artery without angina pectoris; E78.5 Hyperlipidemia, unspecified; E11.42 Type 2 diabetes mellitus with diabetic polyneuropathy; D64.9 Anemia, unspecified; E11.51 Type 2 diabetes mellitus with diabetic peripheral angiopathy without gangrene; K21.9 Gastro-esophageal reflux disease without esophagitis; R10.13 Epigastric pain; D63.1 Anemia in chronic kidney disease; R11.2 Nausea with vomiting, unspecified; T39.015A Adverse effect of aspirin, initial encounter; K29.60 Other gastritis without bleeding; Z99.2 Dependence on renal dialysis; Z89.021 Acquired absence of right finger(s); Z95.1 Presence of aortocoronary bypass graft
CPT/HCPCS: 36415; 74176-TC; 76705-TC; 80053; 82550; 82962; 83605; 83690; 84132; 84484; 85025; 86803; 87070; 87075; 87186; 87205; 87340; 88304-TC; 93005; 93010; 94640; 94760; 99284-25; G0277

== ENCOUNTER 2019-08-14 19:31 | Inpatient (IN) | payer OTHER ==
--- NOTE | 2019-08-14 20:09 | PDOC ---
History of Present Illness - General Chief Complaint: Pain Stated Complaint: ABD PAIN/VOMITING Time Seen by Provider: 08/14/19 20:05 History Source: Patient, Spouse Exam Limitations: Language Barrier - History of Present Illness Initial Comments: 08/14/19 20:08 58y M with PMH of ESRD on dialysis (T//, anuria), CAD s/p CABG 2018, IDDM, PUD, Gastroparesis, Mesenteric Ischemia presenting to ED with complaints of epigastric abdominal pain that started last night. states patient woke up last night with the pain and it has been on and off but got worse a few hours ago. Pain is associated wiht nausea and vomiting (nbnb) and patient also endorses non bloody diarrhea which is not tarry or black. He describes the pain as a burning sensation which does not radiate. Last BM was at 1h ago and he says he is still passing gas. Was able to keep breakfast down today but had soup 2h ago which he vomited. Of note, pt finished dialysis today and states 4kg (?) of fluid taken off. Denies chest pain, sob, fevers, chills, back pain, recent travel, recent illnesses, abdominal distension, alcohol use. He says he had a colonoscopy and endoscopy last year with negative results. PMD: [place] GI: [place] Renal: [place] PMH: see hpi PSH: see hpi Meds: see med rec Allergies: nkda Social: denies Past History - Past Medical History Allergies/Adverse Reactions: Allergies Allergy/AdvReac Type Severity Reaction Status Date / Time No Known Drug Allergies Allergy Verified 08/14/19 19:35 Home Medications: Ambulatory Orders Albuterol 2.5/Ipratropium 0.5 [Duoneb -] 1 amp NEB TID 04/27/18 Aspirin [Ecotrin] 81 mg PO DAILY 04/27/18 Loratadine [Claritin] 10 mg PO DAILY 04/27/18 Sevelamer Carbonate [Renvela -] 1,600 mg PO TID 04/27/18 Furosemide [Lasix -] 80 mg PO DAILY 02/23/19 Insulin Glargine,Hum.rec.anlog [Lantus] 30 unit SQ BID 02/23/19 Midodrine HCl [Proamatine -] 10 mg PO TID 02/23/19 Albuterol Sulfate Inhaler - [Ventolin HFA Inhaler -] 1 puff IH Q6H PRN 02/25/19 Calcium Acetate [Phoslo -] 667 mg PO TIDCM 02/25/19 Diclofenac Sodium [Voltaren] 100 gm TP Q6H PRN 02/25/19 Insulin NPH Hum/Reg Insulin Hm [Novolin 70-30 100 Unit/ml Vial] 30 unit SQ BID 02/25/19 Lipase/Protease/Amylase [Zenpep Dr 25,000 Unit Capsule] 1 each PO DAILY Metolazone 5 mg PO DAILY 02/25/19 Metoprolol Succinate [Toprol Xl] 50 mg PO DAILY 02/25/19 Omeprazole 40 mg PO DAILY 02/25/19 Oxycodone HCl/Acetaminophen [Percocet 10-325 mg Tablet] 1 each PO BID 02/25/19 Vit B Comp No.3/Folic/C/Biotin [Piedad-Kelly Rx Tablet] 1 each PO DAILY 02/25/19 Acetaminophen [Tylenol .Regular Strength -] 325 mg PO BID tablet 02/28/19 Metoclopramide HCl [Reglan -] 5 mg PO TIDAC tablet 02/28/19 Simethicone [Mylicon -] 80 mg PO TID PRN #90 tab.chew 02/28/19 Sulfamethoxazole/Trimethoprim [Bactrim SS -] 1 each PO TuThSa@1000 tablet 02/28 Oxycodone HCl/Acetaminophen [Percocet 5/325 -] 1 tab PO Q6H #60 tab MDD 5 Anemia: No Cardiac Disorders: Yes (Open heart sx 2018 triple bypass) COPD: No DVT: No Diabetes: Yes Dialysis: Yes (TUES,THR,SAT RT ARM DIALYSIS ACCESS) GI Disorders: Yes (GIB, GERD) HTN: Yes Hypercholesterolemia: Yes Other medical history: DIALYSIS - Surgical History Cardiac Surgery: Yes (CABG triple bypass 2017) Orthopedic Surgery: Yes (OR debridement left foot wound) - Immunization History Immunization Up to Date: No - Psycho Social/Smoking Cessation Hx Smoking Status: No Smoking History: Never smoked Have you smoked in the past 12 months: No Number of Cigarettes Smoked Daily: 0 Hx Alcohol Use: No Drug/Substance Use Hx: No Substance Use Type: None Hx Substance Use Treatment: No Review of Systems - Review of Systems Constitutional: No: Chills, Fever, Weakness HEENTM: No: Symptoms Reported Respiratory: No: Symptoms reported Cardiac (ROS): No: Symptoms Reported ABD/GI: Yes: See HPI, Diarrhea, Nausea, Vomiting, Abdominal cramping. No: Rectal Bleeding, Tarry Stools : Yes: See HPI Musculoskeletal: No: Symptoms Reported Integumentary: No: Symptoms Reported Neurological: No: Symptoms reported *Physical Exam - Vital Signs Last Vital Signs Temp Pulse Resp BP Pulse Ox 97.4 F L 88 18 149/77 99 08/14/19 19:32 08/14/19 19:32 08/14/19 19:32 08/14/19 19:32 08/14/19 19:32 - Physical Exam General Appearance: Yes: Appropriately Dressed, Mild Distress, Obese HEENT: positive: EOMI, ALEXANDRO Neck: positive: Trachea midline, Supple Respiratory/Chest: positive: Lungs Clear, Normal Breath Sounds. negative: Crackles, Rales, Rhonchi, Stridor, Wheezing Cardiovascular: positive: Regular Rhythm, Regular Rate, S1, S2. negative: Edema , JVD, Murmur Gastrointestinal/Abdominal: positive: Normal Bowel Sounds, Tender (epigastric and suprapubic), Soft. negative: Distended, Guarding, Rebound Musculoskeletal: negative: CVA Tenderness Extremity: positive: Normal Capillary Refill, Other Integumentary: positive: Normal Color, Dry, Warm. 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 vitals wnl ddx includes pancreatitis, cholecystitis, gastritis, pud, perforation, ileus, sbo, gastroparesis, colitis, mesenteric ischemia, acs -cbc, cmp, trop, lipase, lactic acid -ct, ruq sono, ekg -ofirmev, reglan, pepcid. will not give fluids; pt is dialysis pt, does not appear dry. pt still in pain; will give morphine. cbc wnl, normal lactic, normal lipase and lfts. elevated alkphos. cr and bun elevated in setting of esrd. negative trop. ekg: nsr at 86bpm incomplete rbbb. no amee or depressions, no twi; similar to prior ekg 05/2019. last echo 05/2019; normal ef, mild lvh. 08/14/19 23:13 RUQ sono negative for acute findings. pending CT 08/15/19 01:00 CTAP w/o contrast: Diffuse vascular calcifications may indicate diabetes. Tiny hypodensity in the pancreatic tail is too small to characterize, but may be followed up with nonemergent MRI is indicated. No localizing findings for acute pathology. pt still having pain despite morphine and Tylenol. will admit for intractable abdominal pain. Discharge - Discharge Information Problems reviewed: Yes Clinical Impression/Diagnosis: Nausea Abdominal pain Qualifiers: Abdominal location: epigastric Qualified Code(s): R10.13 - Epigastric pain - Admission Yes - Follow up/Referral - Patient Discharge Instructions - Post Discharge Activity
[2019-08-14] MEDS ORDERED: FAMOTIDINE 20 MG/50 ML IVPB 20 MG/50 ML MG IVPB ONE ×2 (20:18→20:50)
[2019-08-14] MEDS ORDERED: ACETAMINOPHEN 1000 MG/100 ML VIAL (NON FORMULARY) IVPB ONE (20:18)
[2019-08-14] MEDS ORDERED: METOCLOPRAMIDE HCL INJECTION 10 MG/2 ML VIAL IVPUSH ONE (20:31)
[2019-08-14 20:45] LABS: BASO % 0.5 % (0-2.0); EOS % 0.5 % (0-4.5); HEMATOCRIT 47.9 % (35.4-49); HEMOGLOBIN 15.9 GM/dL (11.7-16.9); LYMPH % 10.9 % (8-40); MCHC 33.1 g/dl (32.0-35.9); MEAN CELL VOLUME 93.8 fl (80-96); MEAN PLT VOLUME 9.5 fl (7.5-11.1); MONO % 6.1 % (3.8-10.2); PLATELET COUNT 172 K/MM3 (134-434); RBC 5.11 M/mm3 (4.00-5.60); WHITE BLOOD COUNT 6.9 K/mm3 (4.0-10.0)
[2019-08-14] MEDS ORDERED: ACETAMINOPHEN INJECTION 100 ML IVPB ONE (20:50)
[2019-08-14] MEDS ORDERED: METOCLOPRAMIDE HCL INJECTION 10 MG/2 ML VIAL ONE (20:50)
[2019-08-14 21:03] LABS: INR 0.98 (0.83-1.09); PROTHROMBIN TIME (PATIENT) 11.6 SEC (9.7-13.0)
[2019-08-14] MEDS ORDERED: morphine CARPU-JECT 4 MG/1 ML DISP.SYRIN IVPUSH ONE (21:17)
[2019-08-14 21:40] LABS: ALBUMIN 4.7 g/dl (3.4-5.0); BILIRUBIN,TOTAL 0.3 mg/dL (0.2-1); BLOOD UREA NITROGEN 39.5 mg/dL (7-18); CALCIUM 9.4 mg/dL (8.5-10.1); CREATININE 6.3 mg/dL (0.55-1.3); POTASSIUM 5.2 mmol/L (3.5-5.1); TOT PROT 9.2 g/dl (6.4-8.2)
[2019-08-14] MEDS ORDERED: morphine SULFATE 4 MG/ML VIAL ONE (21:40)
--- NOTE | 2019-08-14 22:17 | PDOC ---
Documentation entered by Lian Blount SCRIBE, acting as scribe for Elza Brown DO. Elza Brown DO: This documentation has been prepared by the Jose Alejandro guardado Maria, SCRIBE, under my direction and personally reviewed by me in its entirety. I confirm that the documentation accurately reflects all work, treatment, procedures, and medical decision making performed by me. Attending Attestation - Resident Resident Name: Jyoti Mcgarry - ED Attending Attestation I have performed the following: I have examined & evaluated the patient, The case was reviewed & discussed with the resident, I agree w/resident's findings & plan, Exceptions are as noted - HPI HPI: 08/14/19 20:37 Patient is a 58 year old male with a significant PMH of ESRD on dialysis (), CAD s/p CABG 2018, IDDM, PUD, Mesenteric Ischemia who presents to the ED with epigastric abdominal pain since last night. Patient reports associated NBNB vomiting and diarrhea. He describes the pain as a constant burning sensation. Pt reports he finished dialysis today. Denies any recent fevers, chills, headache or dizziness.He denies any recent chest pain or shortness of breath. Denies any recent travel. - Physicial Exam PE: 08/14/19 20:38 See residents PE. - Medical Decision Making 08/14/19 22:16 58-year-old male with extensive past medical history complaining of abdominal pain and vomiting Plan for EKG, labs, right upper quadrant ultrasound/CT scan abdomen and pelvis Due to patient's dialysis status will likely hold for observation pending imaging results
[2019-08-15] MEDS ORDERED: morphine CARPU-JECT 4 MG/1 ML DISP.SYRIN IVPUSH ONE (00:17)
[2019-08-15] MEDS ORDERED: morphine SULFATE 4 MG/ML VIAL ONE ×4 (00:31→20:56)
--- NOTE | 2019-08-15 01:24 | HP ---
Admitting History and Physical - Primary Care Physician PCP: Singh Sandra - Admission Chief Complaint: Abdominal Pain, Vomiting History of Present Illness: This is a 58 y/o man with a significant medical history of ESRD ( HD- ,) , CAD s/p CABG (2017), HTN, IDDM, Gastroparesis, PUD, Mesenteric Ischemia. Who presents to the ED with his for epigastric pain, NBNB vomiting x 1 day. Patient reports running out of his pain medication- Percocet having it filled last month. Patient describes the pain as sharp constant, worse with eating. Patient reports his last BM today- soft. Patient denies fever, chills, cough, SOB, dizziness, CP, palpitations, diarrhea, constipation, melena, hematochezia. 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: Peripheral Neuropathy Cardiovascular: Yes: CAD, HTN, Hyperlipdemia Gastrointestinal: Yes: GERD Renal/: Yes: Renal Failure, Hemodialysis Heme/Onc: Yes: Anemia Musculoskeletal: Yes: Other Endocrine: Yes: Diabetes Mellitus - Past Surgical History Past Surgical History: Yes: Amputation, AV Fistula/Graft, CABG - Smoking History Smoking history: Never smoked Have you smoked in the past 12 months: No Aproximately how many cigarettes per day: 0 - Alcohol/Substance Use Hx Alcohol Use: No History of Substance Use: reports: None - Social History Usual Living Arrangement: Yes: With Spouse Do you think of yourself as: Straight/Heterosexual ADL: Independent 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 [employer] History of Recent Travel: No Home Medications - Allergies Allergies/Adverse Reactions: Allergies Allergy/AdvReac Type Severity Reaction Status Date / Time No Known Drug Allergies Allergy Verified 08/14/19 19:35 - Home Medications Home Medications: Ambulatory Orders Albuterol 2.5/Ipratropium 0.5 [Duoneb -] 1 amp NEB TID 04/27/18 Aspirin [Ecotrin] 81 mg PO DAILY 04/27/18 Loratadine [Claritin] 10 mg PO DAILY 04/27/18 Sevelamer Carbonate [Renvela -] 1,600 mg PO TID 04/27/18 Furosemide [Lasix -] 80 mg PO DAILY 02/23/19 Insulin Glargine,Hum.rec.anlog [Lantus] 30 unit SQ BID 02/23/19 Midodrine HCl [Proamatine -] 10 mg PO TID 02/23/19 Albuterol Sulfate Inhaler - [Ventolin HFA Inhaler -] 1 puff IH Q6H PRN 02/25/19 Calcium Acetate [Phoslo -] 667 mg PO TIDCM 02/25/19 Diclofenac Sodium [Voltaren] 100 gm TP Q6H PRN 02/25/19 Insulin NPH Hum/Reg Insulin Hm [Novolin 70-30 100 Unit/ml Vial] 30 unit SQ BID 02/25/19 Lipase/Protease/Amylase [Zenpep Dr 25,000 Unit Capsule] 1 each PO DAILY Metolazone 5 mg PO DAILY 02/25/19 Metoprolol Succinate [Toprol Xl] 50 mg PO DAILY 02/25/19 Omeprazole 40 mg PO DAILY 02/25/19 Oxycodone HCl/Acetaminophen [Percocet 10-325 mg Tablet] 1 each PO BID 02/25/19 Vit B Comp No.3/Folic/C/Biotin [Piedad-Kelly Rx Tablet] 1 each PO DAILY 02/25/19 Acetaminophen [Tylenol .Regular Strength -] 325 mg PO BID tablet 02/28/19 Metoclopramide HCl [Reglan -] 5 mg PO TIDAC tablet 02/28/19 Simethicone [Mylicon -] 80 mg PO TID PRN #90 tab.chew 02/28/19 Sulfamethoxazole/Trimethoprim [Bactrim SS -] 1 each PO TuThSa@1000 tablet 02/28 Oxycodone HCl/Acetaminophen [Percocet 5/325 -] 1 tab PO Q6H #60 tab MDD 5 Family Medical History Other Family History: CAD, DM Review of Systems - Review of Systems Constitutional: reports: No Symptoms Eyes: reports: No Symptoms HENT: reports: No Symptoms Neck: reports: No Symptoms Cardiovascular: reports: No Symptoms Respiratory: reports: No Symptoms Gastrointestinal: reports: Abdominal Pain, Nausea, Vomiting Breasts: reports: No Symptoms Reported Musculoskeletal: reports: No Symptoms Integumentary: reports: No Symptoms Neurological: reports: No Symptoms Endocrine: reports: No Symptoms Hematology/Lymphatic: reports: No Symptoms Psychiatric: reports: No Symptoms Pain Intensity: 9 Physical Examination Vital Signs: Vital Signs Temperature 97.4 F L 08/14/19 19:32 Pulse Rate 88 08/14/19 19:32 Respiratory Rate 18 08/14/19 19:32 Blood Pressure 149/77 08/14/19 19:32 O2 Sat by Pulse Oximetry (%) 99 08/14/19 19:32 Constitutional: Yes: Well Nourished, Mild Distress, Obese Eyes: Yes: WNL, Conjunctiva Clear, EOM Intact, PERRL HENT: Yes: WNL, Atraumatic, Normocephalic Neck: Yes: WNL Cardiovascular: Yes: Regular Rate and Rhythm, S1, S2 Respiratory: Yes: WNL, Regular, CTA Bilaterally Gastrointestinal: Yes: Normal Bowel Sounds, Soft, Abdomen, Obese, Tenderness ( generalized), Tenderness, Epigastrium ...Rectal Exam: Yes: Deferred Renal/: Yes: Anuria Breast(s): Yes: WNL Musculoskeletal: Yes: WNL Extremities: Yes: Amputation, Other (AV Fistula- LUE +thrill/bruit) Edema: No Peripheral Pulses WNL: Yes Neurological: Yes: WNL, Alert, Oriented ...Motor Strength: WNL Psychiatric: Yes: WNL, Alert, Oriented Labs: CBC, BMP 08/14/19 20:30 08/14/19 20:30 Laboratory Results - last 24 hr 08/14/19 08/14/19 08/14/19 20:17 20:30 20:30 WBC 6.9 RBC 5.11 Hgb 15.9 Hct 47.9 D MCV 93.8 MCH 31.0 MCHC 33.1 RDW 16.0 H Plt Count 172 MPV 9.5 Absolute Neuts (auto) 5.6 Neutrophils % 82.0 Lymphocytes % 10.9 D Monocytes % 6.1 Eosinophils % 0.5 Basophils % 0.5 Nucleated RBC % 0 PT with INR INR Sodium Potassium Chloride Carbon Dioxide Anion Gap BUN Creatinine Est GFR (CKD-EPI)AfAm Est GFR (CKD-EPI)NonAf POC Glucometer 279 Random Glucose Lactic Acid Calcium Total Bilirubin AST ALT Alkaline Phosphatase Troponin I 0.02 Total Protein Albumin Lipase 329 08/14/19 08/14/1920 20:30 20:30 20:30 WBC RBC Hgb Hct MCV MCH MCHC RDW Plt Count MPV Absolute Neuts (auto) Neutrophils % Lymphocytes % Monocytes % Eosinophils % Basophils % Nucleated RBC % PT with INR 11.60 INR 0.98 Sodium 133 L Potassium 5.2 H Chloride 94 L Carbon Dioxide 28 Anion Gap 10 BUN 39.5 H Creatinine 6.3 H Est GFR (CKD-EPI)AfAm 10.27 Est GFR (CKD-EPI)NonAf 8.86 POC Glucometer Random Glucose 269 H Lactic Acid 1.6 Calcium 9.4 Total Bilirubin 0.3 AST 27 ALT 46 Alkaline Phosphatase 180 H Troponin I Total Protein 9.2 H Albumin 4.7 Lipase Intake & Output 08/12/19 08/13/19 08/14/19 08/15/19 23:59 23:59 23:59 23:59 Weight 88.451 kg [facility] Prescription Monitoring Program Confidential Drug Utilization Report Others' Prescriptions Patient Name: Pacheco Rodriguez Date: 1960 Address: [address] [place] [address] Sex: Male Rx Written Rx Dispensed Drug Quantity Days Supply Prescriber Name 07/26/2019 07/27/2019 endocet 10-325 mg tablet 60 30 Singh Sandra MD 07/22/2019 07/22/2019 acetaminophen-cod #3 tablet 6 1 Sharon Ospina MD 06/28/2019 06/29/2019 endocet 10-325 mg tablet 60 30 Singh Sandra MD 05/31/2019 05/31/2019 endocet 10-325 mg tablet 60 30 Singh Sandra MD 04/30/2019 04/30/2019 endocet 10-325 mg tablet 60 30 Singh Sandra MD 04/13/2019 04/15/2019 endocet 5-325 tablet 60 30 Erik Dean 03/24/2019 03/24/2019 endocet 10-325 mg tablet 60 30 Singh Sandra MD 02/24/2019 02/24/2019 oxycodone-acetaminophen 5-325 mg tab 40 10 Erik Dean 02/22/2019 02/22/2019 endocet 10-325 mg tablet 60 30 Singh Sandra MD 01/27/2019 01/27/2019 endocet 10-325 mg tablet 60 30 Singh Sandra MD 12/16/2018 12/23/2018 endocet 10-325 mg tablet 60 30 Boaz, Singh MANCINI 11/25/2018 11/25/2018 endocet 10-325 mg tablet 60 30 Boaz, Singh MANCINI 10/26/2018 10/26/2018 endocet 10-325 mg tablet 60 30 Boaz, Singh MANCINI 07/01/2018 10/26/2018 zolpidem tartrate 10 mg tablet 30 30 Boaz, Singh MANCINI 07/01/2018 09/29/2018 zolpidem tartrate 10 mg tablet 30 30 Boaz, Singh MANCINI 09/25/2018 09/25/2018 endocet 10-325 mg tablet 60 30 Boaz, Singh MANCINI 08/26/2018 08/28/2018 endocet 10-325 mg tablet 60 30 Boaz, Singh MANCINI 07/01/2018 08/28/2018 zolpidem tartrate 10 mg tablet 30 30 Boaz, Singh MANCINI Imaging - Results Cat Scan: Report Reviewed, Image Reviewed Ultrasound: Image Reviewed EKG: Image Reviewed Problem List - Problems (1) Abdominal pain Assessment/Plan: Likely secondary to gastroparesis vs medication RUQ US report- no suspicious findings in gallbladder or right kidney. no gallstones, no right renal stones, no hydronephrosis CTAP report- tiny hypodensity in the pancreatic tail is too small to characterize but may be followed up with a nonemergent MRI is indicated. no localizing findings for acute pathology No leukocytosis, no L- shift. Lipase-329 Appreciate GI consult Consider Pain Management- patient takes Endocet and ran out before next refill Morphine Sulfate given in ED with little response Reglan prn Pain Management- Ofirmev, Morphine Sulfate will use judiciously Monitor CBC, BMP Monitor vitals Code(s): R10.9 - UNSPECIFIED ABDOMINAL PAIN Qualifiers: Abdominal location: epigastric Qualified Code(s): R10.13 - Epigastric pain (2) Gastroparesis Assessment/Plan: Continue Reglan Pain Management Appreciate GI consult Code(s): K31.84 - GASTROPARESIS (3) ESRD (end stage renal disease) on dialysis Assessment/Plan: HD- ,,Sa Appreciate Nephrology consult- HD Management Monitor BMP Monitor vitals Code(s): N18.6 - END STAGE RENAL DISEASE; Z99.2 - DEPENDENCE ON RENAL DIALYSIS (4) Anemia associated with chronic renal failure Assessment/Plan: stable Hgb 15.9 Will transfuse if Hgb < 7.0 Monitor CBC Code(s): D63.1 - ANEMIA IN CHRONIC KIDNEY DISEASE (5) Diabetes Assessment/Plan: sub optimal BGMs ISS Monitor BMP Code(s): E11.9 - TYPE 2 DIABETES MELLITUS WITHOUT COMPLICATIONS Qualifiers: Diabetes mellitus type: type 2 Diabetes mellitus intermediate insulin use: with ocean transportation intermediary use Diabetes mellitus complication status: with other specified complication Qualified Code(s): E11.69 - Type 2 diabetes mellitus with other specified complication; Z79.4 - oil heaterman (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 Admitted for Intractable Abdominal Pain for further evaluation of their emergent condition. Plan: See Problem List FEN Fluid Restriction 1L Replete lytes prn Clear Diabetic, Renal, Low Na Diet DVT ppx OOB SCDs Heparin SQ Code Status: Full Code Dispo: Requires Inpatient Care Visit type - Emergency Visit Emergency Visit: Yes ED Registration Date: 08/14/19 Care time: The patient presented to the Emergency Department on the above date and was hospitalized for further evaluation of their emergent condition. - New Patient This patient is new to me today: Yes Date on this admission: 08/15/19 - Critical Care Critical Care patient: No
[2019-08-15] MEDS ORDERED: ACETAMINOPHEN INJECTION 100 ML IVPB ONE (05:24)
[2019-08-15] MEDS: ACETAMINOPHEN 1000 MG/100 ML VIAL (NON FORMULARY) IVPB PRN (05:36)
[2019-08-15 08:24] LABS: BASO % 0.5 % (0-2.0); EOS % 0.1 % (0-4.5); HEMATOCRIT 43.2 % (35.4-49); HEMOGLOBIN 14.3 GM/dL (11.7-16.9); LYMPH % 12.8 % (8-40); MCH 30.9 pg (25.7-33.7); MEAN CELL VOLUME 93.5 fl (80-96); MEAN PLT VOLUME 9.3 fl (7.5-11.1); NEUT % 78.6 % (42.8-82.8); PLATELET COUNT 141 K/MM3 (134-434); RBC 4.62 M/mm3 (4.00-5.60); RDW 16.1 % (11.9-15.9); WHITE BLOOD COUNT 6.9 K/mm3 (4.0-10.0)
[2019-08-15 08:43] LABS: BLOOD UREA NITROGEN 50.8 mg/dL (7-18); CALCIUM 9.2 mg/dL (8.5-10.1); POTASSIUM 5.6 mmol/L (3.5-5.1)
[2019-08-15 08:55] LABS: CREATININE 7.4 mg/dL (0.55-1.3)
[2019-08-15] MEDS ORDERED: HEPARIN NA (PORCINE) 5,000 UNITS/ML 1ML VIAL ONE ×2 (10:09→22:23)
[2019-08-15] MEDS ORDERED: FAMOTIDINE 20 MG/50 ML IVPB 20 MG/50 ML MG IVPB ONE (10:10)
[2019-08-15] MEDS: HEPARIN NA (PORCINE) 5,000 UNITS/ML 1ML VIAL SQ SCH ×2 (10:17→23:58)
[2019-08-15] MEDS: FAMOTIDINE 20 MG/50 ML IVPB 20 MG/50 ML MG IVPB SCH (10:18)
[2019-08-15] MEDS ORDERED: morphine SULFATE 4 MG/ML VIAL IVPUSH ONE (10:30)
[2019-08-15] MEDS ORDERED: ONDANSETRON 4 MG/2 ML VIAL IVPB PRN (13:22)
--- NOTE | 2019-08-15 13:30 | PN ---
Progress Note, Physician History of Present Illness: patient seen and examined in the emergency room. Chart is reviewed. Discussed with RN also as well as with the patient complains of abdominal pain Positive nausea and vomiting Requesting morphine as tablets not helping - Current Medication List Current Medications: Active Medications Acetaminophen (Ofirmev Injection -) 1,000 mg IVPB Q6H PRN PRN Reason: PAIN LEVEL 4 - 6 Stop: 08/16/19 22:00 Last Admin: 08/15/19 05:36 Dose: 1,000 mg Heparin Sodium (Porcine) (Heparin -) 5,000 unit SQ BID [facility] Last Admin: 08/15/19 10:17 Dose: 5,000 unit Famotidine/Sodium Chloride (Pepcid 20 Mg Premixed Ivpb -) 20 mg in 50 mls @ 100 mls/hr IVPB DAILY [facility] Last Admin: 08/15/19 10:18 Dose: 100 mls/hr Morphine Sulfate (Morphine Sulfate) 4 mg IVPUSH Q6H PRN PRN Reason: PAIN LEVEL 6-10 Ondansetron HCl (Zofran Injection) 8 mg IVPB Q8H PRN PRN Reason: NAUSEA - Objective Vital Signs: Vital Signs Temperature 97.8 F 08/15/19 09:26 Pulse Rate 94 H 08/15/19 09:26 Respiratory Rate 18 08/15/19 09:26 Blood Pressure 166/85 08/15/19 09:26 O2 Sat by Pulse Oximetry (%) 99 08/14/19 19:32 Constitutional: Yes: Mild Distress. 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: No Labs: CBC, BMP 08/15/19 07:55 08/15/19 07:55 INR, PTT INR 0.98 (0.83-1.09) 08/14/19 20:30 Problem List - Problems (1) Abdominal pain Code(s): R10.9 - UNSPECIFIED ABDOMINAL PAIN Qualifiers: Abdominal location: epigastric Qualified Code(s): R10.13 - Epigastric pain (2) Diabetes Code(s): E11.9 - TYPE 2 DIABETES MELLITUS WITHOUT COMPLICATIONS Qualifiers: Diabetes mellitus type: type 2 Diabetes mellitus correction insulin use: with emt intermediate use Diabetes mellitus complication status: with other specified complication Qualified Code(s): E11.69 - Type 2 diabetes mellitus with other specified complication; Z79.4 - ad terminal makeup 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 History of peripheral vascular disease Morphine for now Zofran Continue IV famotidine Fluids Clear liquid diet GI to follow Dialysis as per renal Will follow
[2019-08-15] MEDS: morphine SULFATE 4 MG/ML VIAL IVPUSH PRN (15:34)
[2019-08-15] MEDS: INSULIN SLIDING SCALE (NOVOLOG) 1 VIAL SQ SCH ×2 (18:28→23:12)
[2019-08-16] MEDS: morphine SULFATE 4 MG/ML VIAL IVPUSH PRN ×2 (02:52→09:00)
[2019-08-16] MEDS: INSULIN SLIDING SCALE (NOVOLOG) 1 VIAL SQ SCH ×4 (06:09→21:38)
[2019-08-16] MEDS: FAMOTIDINE 20 MG/50 ML IVPB 20 MG/50 ML MG IVPB SCH (09:01)
[2019-08-16] MEDS: HEPARIN NA (PORCINE) 5,000 UNITS/ML 1ML VIAL SQ SCH ×2 (09:01→21:24)
--- NOTE | 2019-08-16 10:21 | EKG ---
Test Reason : Blood Pressure : / mmHG Vent. Rate : 086 BPM Atrial Rate : 086 BPM P-R Int : 160 ms QRS Dur : 100 ms QT Int : 376 ms P-R-T Axes : 004 138 104 degrees QTc Int : 449 ms NORMAL SINUS RHYTHM INCOMPLETE RIGHT BUNDLE BRANCH BLOCK POSSIBLE RIGHT VENTRICULAR HYPERTROPHY ABNORMAL ECG WHEN COMPARED WITH ECG OF 25-FEB-2019 13:25, QRS AXIS SHIFTED RIGHT Confirmed by Obey Parikh ([id number]) on 08/16/2019 10:21:37 AM Referred By: Confirmed By:Obey Parikh
[2019-08-16] MEDS ORDERED: SODIUM PHOSPHATE/NA BIPHOS 133 ML ENEMA PR ONE (11:20)
[2019-08-16] MEDS ORDERED: BISACODYL 10 MG SUPP.RECT RC PRN (11:23)
--- NOTE | 2019-08-16 11:28 | PN ---
Progress Note (short form) - Note Progress Note: pt see/ examined no distress requesting pain meds hcs looked -- on pain meds ct scan reviewed -- ++ ve constipation Vital Signs Temp 98.1 F 08/16/19 05:39 Pulse 76 08/16/19 05:39 Resp 20 08/16/19 05:39 BP 147/79 08/16/19 05:39 Pulse Ox 95 08/15/19 23:15 Intake & Output 08/15/19 08/15/19 08/16/19 11:59 23:59 11:59 Intake Total 1000 100 100 Balance 1000 100 100 Weight 209 lb 3.2 oz 206 lb 12.8 oz Intake: IV 1000 OFIRMEV 1000 Oral 100 100 Other: Voiding Method Urinal # Unmeasured Voids Void 0 Bowel Movement No No Height 5 ft 7 in Body Mass Index (BMI) 32.8 Weight Measurement Method Built in Bedscale Built in Bedscale Active Medications Acetaminophen (Ofirmev Injection -) 1,000 mg IVPB Q6H PRN PRN Reason: PAIN LEVEL 4 - 6 Stop: 08/16/19 22:00 Last Admin: 08/15/19 05:36 Dose: 1,000 mg Bisacodyl (Dulcolax -) 10 mg PO DAILY [facility] Bisacodyl (Dulcolax Suppository -) 10 mg DC DAILY PRN PRN Reason: CONSTIPATION Heparin Sodium (Porcine) (Heparin -) 5,000 unit SQ BID [facility] Last Admin: 08/16/19 09:01 Dose: 5,000 unit Famotidine/Sodium Chloride (Pepcid 20 Mg Premixed Ivpb -) 20 mg in 50 mls @ 100 mls/hr IVPB DAILY [facility] Last Admin: 08/16/19 09:01 Dose: 100 mls/hr Insulin Aspart (Novolog Vial Sliding Scale -) 1 vial SQ ACHS [facility]; Protocol Last Admin: 08/16/19 06:09 Dose: 2 units Ondansetron HCl (Zofran Injection) 8 mg IVPB Q8H PRN PRN Reason: NAUSEA Oxycodone HCl (Roxicodone -) 10 mg PO Q6H PRN PRN Reason: PAIN LEVEL 7-10 Polyethylene Glycol (Miralax (For Daily Use) -) 17 gm PO DAILY [facility] Senna (Senna -) 2 tab PO HS PRN PRN Reason: CONSTIPATION CBC, BMP 08/15/19 07:55 08/15/19 07:55 Physical Exam Constitutional: Yes: Mild Distress. 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 Assessment/Plan discussed Likely constipated related d/w pt in detail d/c morphine oxycodone - he is chronically on add stool softners Zofran Continue IV famotidine Fluids Clear liquid diet GI to follow Dialysis as per renal Will follow d/c later today if better or tomorrow Problem List - Problems (1) Abdominal pain Code(s): R10.9 - UNSPECIFIED ABDOMINAL PAIN Qualifiers: Abdominal location: epigastric Qualified Code(s): R10.13 - Epigastric pain (2) Diabetes Code(s): E11.9 - TYPE 2 DIABETES MELLITUS WITHOUT COMPLICATIONS Qualifiers: Diabetes mellitus type: type 2 Diabetes mellitus longterm insulin use: with 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
[2019-08-16] MEDS ORDERED: BISACODYL 5 MG TABLET.DR (FP) PO SCH (11:30)
[2019-08-16] MEDS: POLYETHYLENE GLYCOL 3350 119 GM BTL PO SCH (11:51)
[2019-08-16 14:38] VITALS: BMI 32.3
--- NOTE | 2019-08-16 14:38 | CON.NEP ---
Consult Consult Specialty:: Nephrology - History of Present Illness Chief Complaint: Abd pain History of Present Illness: 58 DM PVD chronic pain last HDsat came sat nigt with abd pain CT showed stool last BM was sat at home Now tolerating clears - History Source History Provided By: Patient - Past Medical History ALTERATION HAND: Yes: Peripheral Neuropathy Cardio/Vascular: Yes: CAD, HTN, Hyperlipdemia Gastrointestinal: Yes: GERD Renal/: Yes: Renal Failure, Hemodialysis Musculoskeletal: Yes: Other Endocrine: Yes: Diabetes Mellitus - Past Surgical History Past Surgical History: Yes: Amputation, AV Fistula/Graft, CABG - Alcohol/Substance Use Hx Alcohol Use: No History of Substance Use: reports: None - Smoking History Smoking history: Never smoked Have you smoked in the past 12 months: No Aproximately how many cigarettes per day: 0 - Social History Usual Living Arrangement: With Spouse ADL: Independent 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 History of Recent Travel: No Home Medications - Allergies Allergies/Adverse Reactions: Allergies Allergy/AdvReac Type Severity Reaction Status Date / Time No Known Drug Allergies Allergy Verified 08/14/19 19:35 - Home Medications Home Medications: Ambulatory Orders Albuterol 2.5/Ipratropium 0.5 [Duoneb -] 1 amp NEB TID 04/27/18 Aspirin [Ecotrin] 81 mg PO DAILY 04/27/18 Loratadine [Claritin] 10 mg PO DAILY 04/27/18 Sevelamer Carbonate [Renvela -] 1,600 mg PO TID 04/27/18 Furosemide [Lasix -] 80 mg PO DAILY 02/23/19 Insulin Glargine,Hum.rec.anlog [Lantus] 30 unit SQ BID 02/23/19 Midodrine HCl [Proamatine -] 10 mg PO TID 02/23/19 Albuterol Sulfate Inhaler - [Ventolin HFA Inhaler -] 1 puff IH Q6H PRN 02/25/19 Calcium Acetate [Phoslo -] 667 mg PO TIDCM 02/25/19 Diclofenac Sodium [Voltaren] 100 gm TP Q6H PRN 02/25/19 Insulin NPH Hum/Reg Insulin Hm [Novolin 70-30 100 Unit/ml Vial] 30 unit SQ BID 02/25/19 Lipase/Protease/Amylase [Zenpep Dr 25,000 Unit Capsule] 1 each PO DAILY Metolazone 5 mg PO DAILY 02/25/19 Metoprolol Succinate [Toprol Xl] 50 mg PO DAILY 02/25/19 Omeprazole 40 mg PO DAILY 02/25/19 Oxycodone HCl/Acetaminophen [Percocet 10-325 mg Tablet] 1 each PO BID 02/25/19 Vit B Comp No.3/Folic/C/Biotin [Piedad-Kelly Rx Tablet] 1 each PO DAILY 02/25/19 Acetaminophen [Tylenol .Regular Strength -] 325 mg PO BID tablet 02/28/19 Metoclopramide HCl [Reglan -] 5 mg PO TIDAC tablet 02/28/19 Simethicone [Mylicon -] 80 mg PO TID PRN #90 tab.chew 02/28/19 Sulfamethoxazole/Trimethoprim [Bactrim SS -] 1 each PO TuThSa@1000 tablet 02/28 Oxycodone HCl/Acetaminophen [Percocet 5/325 -] 1 tab PO Q6H #60 tab MDD 5 Tobramycin/Sodium Chloride 15 mg OS Q1H 08/15/19 Vancomycin/0.9 % Sod Chloride 25 mg OS Q1H 08/15/19 Review of Systems Unable to obtain ROS, reason: feelsok Nephrology Consult - Height Height: 5 ft 7 in - Weight Weight: 206 lb 12.8 oz - BMI Body Mass Index (BMI): 32.3 - Lab Results CBC,BMP: CBC, BMP 08/15/19 07:55 08/15/19 07:55 Anion Gap: Anion Gap Anion Gap 10 MMOL/L (8-16) 08/15/19 07:55 - Physical Examination Vital Signs: Vital Signs Temperature 98.2 F 08/16/19 11:00 Pulse Rate 79 08/16/19 11:00 Respiratory Rate 18 08/16/19 11:00 Blood Pressure 127/77 08/16/19 11:00 O2 Sat by Pulse Oximetry (%) 96 08/16/19 09:00 Constitutional: Yes: No Distress Access for Hemodialysis: AV Fistula (rt arm) Edema: No Assessment/Plan 58 ESRD DM CAD post CABG gastroparesis Uses percocet at home prn In with abd pain Mod stool on CT K 5.6 HD early am then DC Burnt his index finger left hand Keep close eye
[2019-08-16] MEDS: oxyCODONE HCL 5 MG TABLET PO PRN (16:25)
[2019-08-16 18:04] LABS: EPI CELLS 1.6 /HPF (0-5/HPF); HYALINE CASTS 31 /lpf (0-8); URINE APPEARANCE TURBID; URINE BACTERIA 89.8 /hpf (NEGATIVE); URINE BILIRUBIN NEGATIVE (NEGATIVE); URINE COLOR DK YELLOW; URINE GLUCOSE (UA) 1+ (NEGATIVE); URINE KETONE TRACE (NEGATIVE); URINE LEUK ESTERASE 3+ (NEGATIVE); URINE NITRITE NEGATIVE (NEGATIVE); URINE PROTEIN 3+ (NEGATIVE); URINE UROBILINOGEN 0.2 mg/dL (0.2-1.0); URINE WBC 403 /hpf (0-5)
--- NOTE | 2019-08-16 18:29 | CON.GI ---
Consult Consult Specialty:: GI - History of Present Illness History of Present Illness: 58 y/o male with PMH MRSA ESRD, CAD, DM, PUD, mesenteric ischemia, gastroparesis , pacreatic exocrine insufficiency was doing welll until yesterday when he developed epigastric pain, nausea and vomiting. He takes ASA daily. He denies melena, rectal bleeding, dysphagia. 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: Peripheral Neuropathy Cardio/Vascular: Yes: CAD, HTN, Hyperlipdemia Gastrointestinal: Yes: GERD Renal/: Yes: Renal Failure, Hemodialysis Musculoskeletal: Yes: Other Endocrine: Yes: Diabetes Mellitus - Past Surgical History Past Surgical History: Yes: Amputation, AV Fistula/Graft, CABG - Alcohol/Substance Use Hx Alcohol Use: No History of Substance Use: reports: None - Smoking History Smoking history: Never smoked Have you smoked in the past 12 months: No Aproximately how many cigarettes per day: 0 - Social History Usual Living Arrangement: With Spouse ADL: Independent 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 History of Recent Travel: No Home Medications - Allergies Allergies/Adverse Reactions: Allergies Allergy/AdvReac Type Severity Reaction Status Date / Time No Known Drug Allergies Allergy Verified 08/14/19 19:35 - Home Medications Home Medications: Ambulatory Orders Albuterol 2.5/Ipratropium 0.5 [Duoneb -] 1 amp NEB TID 04/27/18 Aspirin [Ecotrin] 81 mg PO DAILY 04/27/18 Loratadine [Claritin] 10 mg PO DAILY 04/27/18 Sevelamer Carbonate [Renvela -] 1,600 mg PO TID 04/27/18 Furosemide [Lasix -] 80 mg PO DAILY 02/23/19 Insulin Glargine,Hum.rec.anlog [Lantus] 30 unit SQ BID 02/23/19 Midodrine HCl [Proamatine -] 10 mg PO TID 02/23/19 Albuterol Sulfate Inhaler - [Ventolin HFA Inhaler -] 1 puff IH Q6H PRN 02/25/19 Calcium Acetate [Phoslo -] 667 mg PO TIDCM 02/25/19 Diclofenac Sodium [Voltaren] 100 gm TP Q6H PRN 02/25/19 Insulin NPH Hum/Reg Insulin Hm [Novolin 70-30 100 Unit/ml Vial] 30 unit SQ BID 02/25/19 Lipase/Protease/Amylase [Zenpep Dr 25,000 Unit Capsule] 1 each PO DAILY Metolazone 5 mg PO DAILY 02/25/19 Metoprolol Succinate [Toprol Xl] 50 mg PO DAILY 02/25/19 Omeprazole 40 mg PO DAILY 02/25/19 Oxycodone HCl/Acetaminophen [Percocet 10-325 mg Tablet] 1 each PO BID 02/25/19 Vit B Comp No.3/Folic/C/Biotin [Piedad-Kelly Rx Tablet] 1 each PO DAILY 02/25/19 Acetaminophen [Tylenol .Regular Strength -] 325 mg PO BID tablet 02/28/19 Metoclopramide HCl [Reglan -] 5 mg PO TIDAC tablet 02/28/19 Simethicone [Mylicon -] 80 mg PO TID PRN #90 tab.chew 02/28/19 Sulfamethoxazole/Trimethoprim [Bactrim SS -] 1 each PO TuThSa@1000 tablet 02/28 Oxycodone HCl/Acetaminophen [Percocet 5/325 -] 1 tab PO Q6H #60 tab MDD 5 Tobramycin/Sodium Chloride 15 mg OS Q1H 08/15/19 Vancomycin/0.9 % Sod Chloride 25 mg OS Q1H 08/15/19 Physical Exam-GI Vital Signs: Vital Signs Temperature 97.5 F L 08/16/19 14:00 Pulse Rate 90 08/16/19 14:00 Respiratory Rate 18 08/16/19 14:00 Blood Pressure 151/73 08/16/19 14:00 O2 Sat by Pulse Oximetry (%) 96 08/16/19 09:00 Constitutional: Yes: Well Nourished Eyes: Yes: Conjunctiva Clear HENT: Yes: Atraumatic Cardiovascular: Yes: Regular Rate and Rhythm Respiratory: Yes: CTA Bilaterally ...Palpate: Yes: Soft. No: Firm/Rigid, Guarding, Hepatomegaly, Mass, Pulsatile Mass, Splenomegaly Labs: CBC, BMP 08/15/19 07:55 08/15/19 07:55 INR, PTT INR 0.98 (0.83-1.09) 08/14/19 20:30 Current Medications Acetaminophen (Ofirmev Injection -) 1,000 mg IVPB Q6H PRN PRN Reason: PAIN LEVEL 4 - 6 Stop: 08/16/19 22:00 Last Admin: 08/15/19 05:36 Dose: 1,000 mg Bisacodyl (Dulcolax Suppository -) 10 mg RC DAILY PRN PRN Reason: CONSTIPATION Heparin Sodium (Porcine) (Heparin -) 5,000 unit SQ BID [facility] Last Admin: 08/16/19 09:01 Dose: 5,000 unit Famotidine/Sodium Chloride (Pepcid 20 Mg Premixed Ivpb -) 20 mg in 50 mls @ 100 mls/hr IVPB DAILY [facility] Last Admin: 08/16/19 09:01 Dose: 100 mls/hr Insulin Aspart (Novolog Vial Sliding Scale -) 1 vial SQ ACHS [facility]; Protocol Last Admin: 08/16/19 17:42 Dose: 4 units Ondansetron HCl (Zofran Injection) 8 mg IVPB Q8H PRN PRN Reason: NAUSEA Last Admin: 08/16/19 16:24 Dose: 8 mg Oxycodone HCl (Roxicodone -) 10 mg PO Q6H PRN PRN Reason: PAIN LEVEL 7-10 Last Admin: 08/16/19 16:25 Dose: 10 mg Polyethylene Glycol (Miralax (For Daily Use) -) 17 gm PO DAILY [facility] Last Admin: 08/16/19 11:51 Dose: 17 gm Senna (Senna -) 2 tab PO HS PRN PRN Reason: CONSTIPATION Ambulatory Orders Albuterol 2.5/Ipratropium 0.5 [Duoneb -] 1 amp NEB TID 04/27/18 Aspirin [Ecotrin] 81 mg PO DAILY 04/27/18 Loratadine [Claritin] 10 mg PO DAILY 04/27/18 Sevelamer Carbonate [Renvela -] 1,600 mg PO TID 04/27/18 Furosemide [Lasix -] 80 mg PO DAILY 02/23/19 Insulin Glargine,Hum.rec.anlog [Lantus] 30 unit SQ BID 02/23/19 Midodrine HCl [Proamatine -] 10 mg PO TID 02/23/19 Albuterol Sulfate Inhaler - [Ventolin HFA Inhaler -] 1 puff IH Q6H PRN 02/25/19 Calcium Acetate [Phoslo -] 667 mg PO TIDCM 02/25/19 Diclofenac Sodium [Voltaren] 100 gm TP Q6H PRN 02/25/19 Insulin NPH Hum/Reg Insulin Hm [Novolin 70-30 100 Unit/ml Vial] 30 unit SQ BID 02/25/19 Lipase/Protease/Amylase [Zenpep Dr 25,000 Unit Capsule] 1 each PO DAILY Metolazone 5 mg PO DAILY 02/25/19 Metoprolol Succinate [Toprol Xl] 50 mg PO DAILY 02/25/19 Omeprazole 40 mg PO DAILY 02/25/19 Oxycodone HCl/Acetaminophen [Percocet 10-325 mg Tablet] 1 each PO BID 02/25/19 Vit B Comp No.3/Folic/C/Biotin [Piedad-Kelly Rx Tablet] 1 each PO DAILY 02/25/19 Acetaminophen [Tylenol .Regular Strength -] 325 mg PO BID tablet 02/28/19 Metoclopramide HCl [Reglan -] 5 mg PO TIDAC tablet 02/28/19 Simethicone [Mylicon -] 80 mg PO TID PRN #90 tab.chew 02/28/19 Sulfamethoxazole/Trimethoprim [Bactrim SS -] 1 each PO TuThSa@1000 tablet 02/28 Oxycodone HCl/Acetaminophen [Percocet 5/325 -] 1 tab PO Q6H #60 tab MDD 5 Tobramycin/Sodium Chloride 15 mg OS Q1H 08/15/19 Vancomycin/0.9 % Sod Chloride 25 mg OS Q1H 08/15/19 Problem List - Problems (1) Abdominal pain Assessment/Plan: nausea nad vomiting rule out gastroparesis,peptic ulcer disease,gastritis R> pantoprazole 40mg 30 min ac Reglan 5mg 30 min ac Simethicone 80mg qid Code(s): R10.9 - UNSPECIFIED ABDOMINAL PAIN Qualifiers: Abdominal location: epigastric Qualified Code(s): R10.13 - Epigastric pain
[2019-08-16] MEDS ORDERED: INSULIN (NOVOLOG) ASPART 100 UNITS/ML 10ML VIAL ONE (20:25)
[2019-08-16] MEDS: ACETAMINOPHEN 1000 MG/100 ML VIAL (NON FORMULARY) IVPB PRN (20:57)
[2019-08-16] MEDS ORDERED: SENNOSIDES 8.6MG TABLET (FP) PO PRN (22:00)
[2019-08-17] MEDS: oxyCODONE HCL 5 MG TABLET PO PRN ×4 (00:08→21:37)
[2019-08-17] MEDS: METOCLOPRAMIDE HCL 10 MG TABLET (FP) PO SCH ×3 (06:06→17:26)
[2019-08-17] MEDS: INSULIN SLIDING SCALE (NOVOLOG) 1 VIAL SQ SCH ×4 (06:06→21:37)
--- NOTE | 2019-08-17 08:43 | PN ---
Progress Note, Physician History of Present Illness: GI FOLLOW UP NOTE Patient examined and case discussed with Dr Dubon Patient continue to have epigastric pain accompanied with nausea, denies vomiting. EGD from 08/2018 shows retain food in stomach, esophagitis at gastroesophageal junction, erythema in antrum. Denies diarrhea, constipation, rectal bleeding, melena. - Current Medication List Current Medications: Active Medications Bisacodyl (Dulcolax Suppository -) 10 mg RC DAILY PRN PRN Reason: CONSTIPATION Heparin Sodium (Porcine) (Heparin -) 5,000 unit SQ BID [facility] Last Admin: 08/16/19 21:24 Dose: Not Given Famotidine/Sodium Chloride (Pepcid 20 Mg Premixed Ivpb -) 20 mg in 50 mls @ 100 mls/hr IVPB DAILY [facility] Last Admin: 08/16/19 09:01 Dose: 100 mls/hr Insulin Aspart (Novolog Vial Sliding Scale -) 1 vial SQ ACHS [facility]; Protocol Last Admin: 08/17/19 06:06 Dose: 2 units Metoclopramide HCl (Reglan -) 5 mg PO TIDAC [facility] Last Admin: 08/17/19 06:06 Dose: 5 mg Ondansetron HCl (Zofran Injection) 8 mg IVPB Q8H PRN PRN Reason: NAUSEA Last Admin: 08/16/19 16:24 Dose: 8 mg Oxycodone HCl (Roxicodone -) 10 mg PO Q6H PRN PRN Reason: PAIN LEVEL 7-10 Last Admin: 08/17/19 08:27 Dose: 10 mg Polyethylene Glycol (Miralax (For Daily Use) -) 17 gm PO DAILY [facility] Last Admin: 08/16/19 11:51 Dose: 17 gm Senna (Senna -) 2 tab PO HS PRN PRN Reason: CONSTIPATION Last Admin: 08/16/19 20:52 Dose: 2 tab - Objective Vital Signs: Vital Signs Temperature 98 F 08/17/19 06:54 Pulse Rate 70 08/17/19 08:26 Respiratory Rate 18 08/17/19 08:26 Blood Pressure 133/58 L 08/17/19 08:26 O2 Sat by Pulse Oximetry (%) 96 08/16/19 21:00 Constitutional: Yes: No Distress, Calm Eyes: Yes: Conjunctiva Clear HENT: Yes: Atraumatic Cardiovascular: Yes: Regular Rate and Rhythm Respiratory: Yes: Regular, CTA Bilaterally Gastrointestinal: Yes: Normal Bowel Sounds, Soft, Tenderness, Epigastrium Neurological: Yes: Alert, Oriented Psychiatric: Yes: Alert, Oriented Labs: CBC, BMP 08/15/19 07:55 08/15/19 07:55 INR, PTT INR 0.98 (0.83-1.09) 08/14/19 20:30 Problem List - Problems (1) Abdominal pain Assessment/Plan: R/O Gastroparesis vs PUD vs Gastritis Pantoprazole 40mg daily advance diet EKG from 08/14 shows QTc 449, repeat EKG and if no prolong QTc will start on Gama 5mg TIDAC Code(s): R10.9 - UNSPECIFIED ABDOMINAL PAIN Qualifiers: Abdominal location: epigastric Qualified Code(s): R10.13 - Epigastric pain
[2019-08-17 09:30] LABS: HEMATOCRIT 38.5 % (35.4-49); HEMOGLOBIN 12.7 GM/dL (11.7-16.9); MCH 30.6 pg (25.7-33.7); MEAN CELL VOLUME 92.9 fl (80-96); MEAN PLT VOLUME 9.3 fl (7.5-11.1); PLATELET COUNT 145 K/MM3 (134-434); RBC 4.15 M/mm3 (4.00-5.60); RDW 15.6 % (11.9-15.9); WHITE BLOOD COUNT 5.5 K/mm3 (4.0-10.0)
[2019-08-17 09:54] LABS: BLOOD UREA NITROGEN 71.1 mg/dL (7-18); CALCIUM 8.3 mg/dL (8.5-10.1); POTASSIUM 5.5 mmol/L (3.5-5.1)
[2019-08-17 09:57] LABS: CREATININE 11.3 mg/dL (0.55-1.3)
[2019-08-17] MEDS: FAMOTIDINE 20 MG/50 ML IVPB 20 MG/50 ML MG IVPB SCH (13:16)
[2019-08-17] MEDS: HEPARIN NA (PORCINE) 5,000 UNITS/ML 1ML VIAL SQ SCH ×2 (13:18→21:40)
[2019-08-17] MEDS: POLYETHYLENE GLYCOL 3350 119 GM BTL PO SCH (13:19)
[2019-08-17 13:34] LABS: BLOOD UREA NITROGEN 23.3 mg/dL (7-18); CREATININE 4.5 mg/dL (0.55-1.3)
--- NOTE | 2019-08-17 18:52 | PN ---
Progress Note (short form) - Note Progress Note: Abd pain better pt examined in HD Vital Signs - 24 hr 08/16/19 08/16/19 08/17/19 21:00 23:00 06:54 Temperature 98.0 F 98 F Pulse Rate 73 75 Respiratory 18 20 Rate Blood Pressure 145/71 138/62 O2 Sat by Pulse 96 Oximetry (%) 08/17/19 08/17/19 08/17/19 08:26 08:45 08:50 Temperature 98.3 F Pulse Rate 70 72 72 Respiratory 18 18 18 Rate Blood Pressure 133/58 L 136/72 128/64 O2 Sat by Pulse Oximetry (%) 08/17/19 08/17/19 08/17/19 09:00 09:20 09:50 Temperature Pulse Rate 74 68 Respiratory 18 18 Rate Blood Pressure 121/69 111/53 L O2 Sat by Pulse 96 Oximetry (%) 08/17/19 08/17/19 08/17/19 10:20 10:50 11:20 Temperature Pulse Rate 70 70 72 Respiratory 18 18 18 Rate Blood Pressure 124/64 119/64 104/52 L O2 Sat by Pulse Oximetry (%) 08/17/19 08/17/19 08/17/19 11:50 12:20 12:42 Temperature Pulse Rate 70 74 74 Respiratory 18 18 18 Rate Blood Pressure 120/61 103/76 108/64 O2 Sat by Pulse Oximetry (%) Current Medications Generic Name Dose Route Start Last Admin Trade Name Freq PRN Reason Stop Dose Admin Bisacodyl 10 mg 08/16/19 11:23 08/17/19 15:31 Dulcolax Suppository - RC 10 mg DAILY PRN Administration CONSTIPATION Heparin Sodium (Porcine) 5,000 unit 08/15/19 10:00 08/17/19 13:18 Heparin - SQ Not Given BID [facility] Famotidine/Sodium Chloride 20 mg in 50 mls @ 100 mls/hr 08/15/19 10:00 13:16 Pepcid 20 Mg Premixed Ivpb - IVPB 100 mls/hr DAILY [facility] Administration Insulin Aspart 1 vial 08/15/19 22:00 08/17/19 17:27 Novolog Vial Sliding Scale - SQ 2 units ACHS [facility] Administration Protocol Metoclopramide HCl 5 mg 08/17/19 07:00 08/17/19 17:26 Reglan - PO 5 mg TIDAC [facility] Administration Ondansetron HCl 8 mg 08/15/19 13:22 08/16/19 16:24 Zofran Injection IVPB 8 mg Q8H PRN Administration NAUSEA Oxycodone HCl 10 mg 08/16/19 11:19 08/17/19 15:09 Roxicodone - PO 10 mg Q6H PRN Administration PAIN LEVEL 7-10 Polyethylene Glycol 17 gm 08/16/19 11:30 08/17/19 13:19 Miralax (For Daily Use) - PO 17 gm DAILY [facility] Administration Senna 2 tab 08/16/19 22:00 08/16/19 20:52 Senna - PO 2 tab HS PRN Administration CONSTIPATION Laboratory Results - last 24 hr 08/16/19 08/16/19 08/17/19 16:35 21:37 05:46 WBC RBC Hgb Hct MCV MCH MCHC RDW Plt Count MPV Sodium Potassium Chloride Carbon Dioxide Anion Gap BUN Creatinine Est GFR (CKD-EPI)AfAm Est GFR (CKD-EPI)NonAf POC Glucometer 163 152 Random Glucose Calcium U Pathogenic Cast Auto None Urine Yeast (Auto) None 08/17/19 08/17/19 08/17/19 08:50 08:50 12:14 WBC 5.5 RBC 4.15 Hgb 12.7 Hct 38.5 MCV 92.9 MCH 30.6 MCHC 33.0 RDW 15.6 Plt Count 145 MPV 9.3 Sodium 128 L Potassium 5.5 H Chloride 94 L Carbon Dioxide 22 Anion Gap 13 BUN 71.1 H 23.3 H Creatinine 11.3 H* 4.5 H Est GFR (CKD-EPI)AfAm 5.07 15.43 Est GFR (CKD-EPI)NonAf 4.37 13.31 POC Glucometer Random Glucose 200 H Calcium 8.3 L U Pathogenic Cast Auto Urine Yeast (Auto) 08/17/19 08/17/19 13:05 17:22 WBC RBC Hgb Hct MCV MCH MCHC RDW Plt Count MPV Sodium Potassium Chloride Carbon Dioxide Anion Gap BUN Creatinine Est GFR (CKD-EPI)AfAm Est GFR (CKD-EPI)NonAf POC Glucometer 159 161 Random Glucose Calcium U Pathogenic Cast Auto Urine Yeast (Auto) S1S2 RRR Lungs decreased Abd- soft, obese, NT No edema PLAN started Reglan today check EKG tomorrow If no prolonged Qtc- will dc pt home continue with meds Problem List - Problems (1) Abdominal pain Code(s): R10.9 - UNSPECIFIED ABDOMINAL PAIN Qualifiers: Abdominal location: epigastric Qualified Code(s): R10.13 - Epigastric pain (2) ESRD (end stage renal disease) on dialysis Code(s): N18.6 - END STAGE RENAL DISEASE; Z99.2 - DEPENDENCE ON RENAL DIALYSIS (3) GERD (gastroesophageal reflux disease) Code(s): K21.9 - GASTRO-ESOPHAGEAL REFLUX DISEASE WITHOUT ESOPHAGITIS Qualifiers: (4) Gastroparesis Code(s): K31.84 - GASTROPARESIS (5) HTN (hypertension) Code(s): I10 - ESSENTIAL (PRIMARY) HYPERTENSION Qualifiers:
[2019-08-17] MEDS: MIDODRINE HCL 5 MG TABLET PO SCH (19:25)
[2019-08-17] MEDS ORDERED: INSULIN (NOVOLOG) ASPART 100 UNITS/ML 10ML VIAL ONE (21:31)
[2019-08-18] MEDS: METOCLOPRAMIDE HCL 10 MG TABLET (FP) PO SCH ×2 (06:48→10:54)
[2019-08-18] MEDS: INSULIN SLIDING SCALE (NOVOLOG) 1 VIAL SQ SCH ×2 (06:49→10:57)
--- NOTE | 2019-08-18 07:35 | PN ---
Progress Note, Physician History of Present Illness: GI FOLLOW UP NOTE Patient examined and case discussed with Dr Dubon Patient states abdominal pain and nausea is improving. Denies vomiting, diarrhea, constipation, rectal bleeding or melena. - Current Medication List Current Medications: Active Medications Bisacodyl (Dulcolax Suppository -) 10 mg RC DAILY PRN PRN Reason: CONSTIPATION Last Admin: 08/17/19 15:31 Dose: 10 mg Heparin Sodium (Porcine) (Heparin -) 5,000 unit SQ BID [facility] Last Admin: 08/17/19 21:40 Dose: Not Given Famotidine/Sodium Chloride (Pepcid 20 Mg Premixed Ivpb -) 20 mg in 50 mls @ 100 mls/hr IVPB DAILY [facility] Last Admin: 08/17/19 13:16 Dose: 100 mls/hr Insulin Aspart (Novolog Vial Sliding Scale -) 1 vial SQ ACHS [facility]; Protocol Last Admin: 08/18/19 06:49 Dose: 4 units Metoclopramide HCl (Reglan -) 5 mg PO TIDAC [facility] Last Admin: 08/18/19 06:48 Dose: 5 mg Midodrine (Proamatine -) 10 mg PO TID-MID [facility] Last Admin: 08/17/19 19:25 Dose: 10 mg Ondansetron HCl (Zofran Injection) 8 mg IVPB Q8H PRN PRN Reason: NAUSEA Last Admin: 08/16/19 16:24 Dose: 8 mg Oxycodone HCl (Roxicodone -) 10 mg PO Q6H PRN PRN Reason: PAIN LEVEL 7-10 Last Admin: 08/17/19 21:37 Dose: 10 mg Polyethylene Glycol (Miralax (For Daily Use) -) 17 gm PO DAILY [facility] Last Admin: 08/17/19 13:19 Dose: 17 gm Senna (Senna -) 2 tab PO HS PRN PRN Reason: CONSTIPATION Last Admin: 08/16/19 20:52 Dose: 2 tab - Objective Vital Signs: Vital Signs Temperature 98.1 F 08/18/19 06:59 Pulse Rate 92 H 08/18/19 06:59 Respiratory Rate 08/18/19 06:59 Blood Pressure 129/62 08/18/19 06:59 O2 Sat by Pulse Oximetry (%) 96 08/17/19 21:00 Constitutional: Yes: No Distress, Calm Eyes: Yes: Conjunctiva Clear HENT: Yes: Atraumatic Cardiovascular: Yes: Regular Rate and Rhythm Respiratory: Yes: Regular, CTA Bilaterally Gastrointestinal: Yes: Normal Bowel Sounds, Soft Neurological: Yes: Alert Psychiatric: Yes: Alert Labs: CBC, BMP 08/17/19 08:50 08/17/19 12:14 INR, PTT INR 0.98 (0.83-1.09) 08/14/19 20:30 Problem List - Problems (1) Abdominal pain Code(s): R10.9 - UNSPECIFIED ABDOMINAL PAIN Qualifiers: Abdominal location: epigastric Qualified Code(s): R10.13 - Epigastric pain
[2019-08-18] MEDS ORDERED: PT OWN MED DRAWER 7, Y5N ONE (10:44)
[2019-08-18] MEDS: FAMOTIDINE 20 MG/50 ML IVPB 20 MG/50 ML MG IVPB SCH (10:53)
[2019-08-18] MEDS: HEPARIN NA (PORCINE) 5,000 UNITS/ML 1ML VIAL SQ SCH (10:53)
[2019-08-18] MEDS: POLYETHYLENE GLYCOL 3350 119 GM BTL PO SCH (10:53)
[2019-08-18] MEDS: MIDODRINE HCL 5 MG TABLET PO SCH (10:54)
--- NOTE | 2019-08-18 11:09 | EKG ---
Test Reason : Blood Pressure : / mmHG Vent. Rate : 075 BPM Atrial Rate : 075 BPM P-R Int : 168 ms QRS Dur : 112 ms QT Int : 362 ms P-R-T Axes : 021 071 128 degrees QTc Int : 404 ms NORMAL SINUS RHYTHM LEFT ATRIAL ENLARGEMENT INCOMPLETE RIGHT BUNDLE BRANCH BLOCK POSSIBLE INFERIOR INFARCT , AGE UNDETERMINED ABNORMAL ECG Confirmed by MD MJ, NITIN ([id number]) on 08/18/2019 11:09:27 AM Referred By: ANNA MARIE CRUZ DR Confirmed By:NITIN BARKER MD
[2019-08-18 11:45] VITALS: BP 132/70; PULSE 89; TEMP 98
--- NOTE | 2019-08-18 12:14 | DS ---
Physical Examination Vital Signs: Vital Signs Temperature 98.0 F 08/18/19 11:44 Pulse Rate 89 08/18/19 11:44 Respiratory Rate 18 08/18/19 11:44 Blood Pressure 132/70 08/18/19 11:44 O2 Sat by Pulse Oximetry (%) 96 08/17/19 21:00 Constitutional: Yes: No Distress, Calm Cardiovascular: Yes: Regular Rate and Rhythm Respiratory: Yes: CTA Bilaterally Gastrointestinal: Yes: Normal Bowel Sounds, Soft, Abdomen, Obese. No: Tenderness Edema: No Labs: CBC, BMP 08/17/19 08:50 08/17/19 12:14 Discharge Summary Problems reviewed: Yes Reason For Visit: GASTROPARESIS, EPIGASTRIC PAIN, NAUSEA Current Active Problems Abdominal pain (Acute) Nausea (Acute) Hospital Course: admitted for intractable abd pain -- seen by GI Abd /pelvis CT -- negative Started on Reglan-- pt tolerating diet Qtc not prolonged on EKG pain is controlled Pt is stable for dc home Condition: Good - Instructions Referrals: Singh Sandra MD [Primary Care Provider] - Disposition: HOME - Home Medications Comprehensive Discharge Medication List: Ambulatory Orders Albuterol 2.5/Ipratropium 0.5 [Duoneb -] 1 amp NEB TID 04/27/18 Aspirin [Ecotrin] 81 mg PO DAILY 04/27/18 Loratadine [Claritin] 10 mg PO DAILY 04/27/18 Sevelamer Carbonate [Renvela -] 1,600 mg PO TID 04/27/18 Furosemide [Lasix -] 80 mg PO DAILY 02/23/19 Insulin Glargine,Hum.rec.anlog [Lantus] 30 unit SQ BID 02/23/19 Midodrine HCl [Proamatine -] 10 mg PO TID 02/23/19 Albuterol Sulfate Inhaler - [Ventolin HFA Inhaler -] 1 puff IH Q6H PRN 02/25/19 Calcium Acetate [Phoslo -] 667 mg PO TIDCM 02/25/19 Diclofenac Sodium [Voltaren] 100 gm TP Q6H PRN 02/25/19 Insulin NPH Hum/Reg Insulin Hm [Novolin 70-30 100 Unit/ml Vial] 30 unit SQ BID 02/25/19 Lipase/Protease/Amylase [Zenpep Dr 25,000 Unit Capsule] 1 each PO DAILY Metolazone 5 mg PO DAILY 02/25/19 Metoprolol Succinate [Toprol Xl] 50 mg PO DAILY 02/25/19 Omeprazole 40 mg PO DAILY 02/25/19 Oxycodone HCl/Acetaminophen [Percocet 10-325 mg Tablet] 1 each PO BID 02/25/19 Vit B Comp No.3/Folic/C/Biotin [Piedad-Kelly Rx Tablet] 1 each PO DAILY 02/25/19 Acetaminophen [Tylenol .Regular Strength -] 325 mg PO BID tablet 02/28/19 Metoclopramide HCl [Reglan -] 5 mg PO TIDAC tablet 02/28/19 Simethicone [Mylicon -] 80 mg PO TID PRN #90 tab.chew 02/28/19 Sulfamethoxazole/Trimethoprim [Bactrim SS -] 1 each PO TuThSa@1000 tablet 02/28 Oxycodone HCl/Acetaminophen [Percocet 5/325 -] 1 tab PO Q6H #60 tab MDD 5 Tobramycin/Sodium Chloride 15 mg OS Q1H 08/15/19 Vancomycin/0.9 % Sod Chloride 25 mg OS Q1H 08/15/19
== END 2019-08-18 14:03 | disposition home or self-care (01) | DRG 73 ==
LOC: JER 19:31 → JERBED 08-15 01:01 → J8W 08-15 22:28
PROVIDERS: ADMIT Internal Medicine; ATTEND Internal Medicine
PROC: 5A1D70Z Performance of Urinary Filtration, Intermittent, Less than 6 Hours Per Day (ICD-10-PCS; principal; 2019-08-17)
DX: E11.43 Type 2 diabetes mellitus with diabetic autonomic (poly)neuropathy (principal); N18.6 End stage renal disease; I12.0 Hypertensive chronic kidney disease with stage 5 chronic kidney disease or end stage renal disease; N17.9 Acute kidney failure, unspecified; K31.84 Gastroparesis; E11.22 Type 2 diabetes mellitus with diabetic chronic kidney disease; R11.2 Nausea with vomiting, unspecified; K59.00 Constipation, unspecified; R10.9 Unspecified abdominal pain; E66.9 Obesity, unspecified; Z68.32 Body mass index [BMI] 32.0-32.9, adult; K21.9 Gastro-esophageal reflux disease without esophagitis; Z99.2 Dependence on renal dialysis; I25.10 Atherosclerotic heart disease of native coronary artery without angina pectoris; Z95.1 Presence of aortocoronary bypass graft; D63.1 Anemia in chronic kidney disease; K27.9 Peptic ulcer, site unspecified, unspecified as acute or chronic, without hemorrhage or perforation
CPT/HCPCS: 36415; 74176-TC; 76705-TC; 80048; 80053; 81003; 82150; 82565; 82962; 83605; 83690; 84484; 84520; 85025; 85027; 85610; 86803; 87086; 87186; 87340; 93005; 93010; 99285-25; J0131; J1644